=== PATIENT | female | born 1990 | race Caucasian/White ===

== ENCOUNTER 2016-08-19 19:32 | Emergency (ER) | payer OTHER ==
[~2016-08-19] VITALS: Ht 162.6 cm; Wt 74.5 kg
[2016-08-19 19:50] VITALS: Ht 162.6 cm; Wt 74.5 kg
--- NOTE | 2016-08-19 21:40 | RADRPT ---
PROCEDURE: XR Wrist. CLINICAL INDICATION: Left wrist swelling and pain along the distal ulna TECHNIQUE: PA, lateral and oblique and the scaphoid views of the left wrist were performed. COMPARISON: No prior studies are available for comparison. FINDINGS: No evidence of fracture, dislocation, or subluxation is seen. The bones appear well mineralized. The joint spaces are well preserved. Diffuse soft tissue swelling is present. Extensive arteriosclerot ic calcification of the radial and ulnar arteries is noted. There is no evidence of subcutaneous ga s or radiopaque foreign body. RPTAT:HJJR IMPRESSION: Diffuse soft tissue swelling without acute osseous abnormality of the left wrist. Physician Fran Date Time Electronically viewed and signed by Physician Fran on 08/19/2016 21:39 /
--- NOTE | 2016-08-19 21:41 | RADRPT ---
PROCEDURE: XR Elbow. CLINICAL INDICATION: Left lateral elbow pain and swelling TECHNIQUE: AP, lateral and oblique views of the left elbow performed, a total of 4 images sent to the PACS for review. COMPARISON: None. FINDINGS: There is normal mineralization and alignment. No fracture or osseous lesion is identified. The dista l humerus, proximal radius and proximal ulna are unremarkable, and the joint spaces are preserved. D iffuse soft tissue swelling is present. Vascular calcifications in the antecubital fossa region/dis eliseo arm are noted. There is no evidence of a joint effusion. RPTAT:HJJR IMPRESSION: 1. Diffuse soft tissue swelling without osseous abnormality of the left elbow. 2. Metallic clips consistent with prior surgery involving the distal left arm. Physician Fran Date Time Electronically viewed and signed by Physician Fran on 08/19/2016 21:41 JR/
--- NOTE | 2016-08-20 06:50 | ERD ---
DATE OF SERVICE: 08/19/2016 HISTORY OF PRESENT ILLNESS: The patient is a 26-year-old female complaining of swelling to her left arm. The patient has a history of a fistula. She has been seen by her renal physician yesterday w miguel did an ultrasound to rule out DVT. There were no signs of DVT on ultrasound. The patient states she had a seizure 3 weeks ago and she fell and she has noticed that there has been swelling in her arm with some pain, so she is concerned about possible fracture. The patient was sent here by her enms physician for x-ray to rule out possible underlying fracture. The patient does not have any nu mbness or tingling. She has not taken medications for her symptoms. She states that the ultrasound was negative per her renal physician yesterday and does not want to repeat ultrasound today. MEDICAL HISTORY: Renal disease. ALLERGIES TO MEDICATIONS: 1. MORPHINE. 2. BENAZEPRIL. 3. TRAMADOL 4. METOCLOPRAMIDE. 5. KETOROLAC 6. LATEX. SURGICAL HISTORY: Fistula placement. SOCIAL HISTORY: Denies. REVIEW OF SYSTEMS: A 12-point review of systems was done. Refer to HPI for positives; all other sy stems negative. PHYSICAL EXAMINATION VITAL SIGNS: Temperature is 96.9, pulse 82, blood pressure is 183/91, respiratory rate 18, O2 satur ation 97% on room air, and pain intensity 8/10. GENERAL: The patient is well-appearing, well-nourished, no acute distress. HEENT: Atraumatic. Conjunctivae are pink. Pupils equal, round, and reactive to light. There is no s cleral icterus. Tympanic membranes clear bilaterally. Oropharynx clear. No nystagmus or photophobia . CHEST: Clear to auscultation bilaterally. There are no rales, wheezes or rhonchi. HEART: Regular rate and rhythm. No murmurs, clicks, rubs or gallops. No S3 or S4. EXTREMITIES: The patient does have swelling noted with no erythema. Pulses are intact to the dista l extremities. The patient has normal strength to the distal extremity with normal radial and ulnar median nerve innervation. Compartments are soft. The patient has normal flexion and extension wit h active and passive range of motion at the left elbow. EMERGENCY ROOM COURSE: Dr. Whaley was also asked to evaluate the patient. Dr. Ostick saw the patie nt at bedside and believes that we should do ultrasound to rule out possible clot of the left upper extremity. This was discussed with the patient; however, the patient did have ultrasound yesterday that was negative, and the patient declined a re-ultrasound at this time. We decided to order x-ray to rule out possible underlying fracture. The patient did have a 3-view x-ray done of the left elb ow which showed diffuse soft tissue swelling without osseous abnormality of the left elbow and metal lic clips consistent with prior surgery involving the distal left arm, reviewed by myself as well as radiologist. The patient also had a 3-view x-ray done of the left wrist which showed diffuse soft tissue swelling without acute osseous abnormality of the left wrist, reviewed by myself as well as t henrry radiologist. The patient was placed in a splint. DIAGNOSIS: Left upper arm swelling, unspecified. MEDICAL DECISION MAKING: I have low suspicion for acute fracture or dislocation as the patient's x- rays are within normal limits. I cannot adequately rule out a possible vascular occlusion as the pa valerie declines ultrasound in the ER; however, the patient understood the risks and states she did velasquez ve an ultrasound done yesterday which was read as negative, so the patient felt there was no need fo r re-ultrasound today. Low suspicion for neuro deficit. DISCHARGE: The patient is discharged stable. The patient is given no prescription. The patient wa s told to follow up with her renal physician and told to return if symptoms change or worsen. All o ther questions answered at time of discharge. Discharge summary given at the time of departure. Th e patient understood and complied with plan. Dictated By: ROULA CHAPMAN for LEI ROSS/ALISON Conf#: [id number] DID#: [id number]
== END 2016-08-19 22:38 | disposition home or self-care (01) ==
LOC: FTE 19:32
DX: S49.92XA Unspecified injury of left shoulder and upper arm, initial encounter (principal); I10 Essential (primary) hypertension; E11.9 Type 2 diabetes mellitus without complications; W18.39XA Other fall on same level, initial encounter; Y92.9 Unspecified place or not applicable; Z91.040 Latex allergy status
CPT/HCPCS: 73080; 73110; Z7502

== ENCOUNTER 2018-10-19 20:18 | Inpatient (IN) | payer OTHER ==
[~2018-10-19] VITALS: Ht 162.6 cm; Wt 70.0 kg
[2018-10-19] MEDS ORDERED: PIPER-TAZO 3.375 GM IV (PMX) 100 ML IVPB STA (21:01)
[2018-10-19] MEDS ORDERED: HYDROmorphONE 0.5 MG/0.5 ML SYG IV STA (21:01)
[2018-10-19] MEDS ORDERED: VANCOMYCIN 1 GM (PMX) 250 ML IVPB STA (21:01)
[2018-10-19] MEDS ORDERED: CLINDAMYCIN 900 MG/D5W (PMX) 50 ML IVPB STA (21:01)
[2018-10-19] MEDS ORDERED: ONDANSETRON 4 MG INJ IV STA (21:01)
--- NOTE | 2018-10-19 22:19 | ERD ---
ER Documentation Chief Complaint Chief Complaint pain/swelling/discoloration right lower leg, missed dialysis today HPI 28-year-old female history of end-stage renal disease on dialysis who did not complete dialysis today. History of diabetes. Patient presents to the emergency room with pain and swelling to the right lower extremity. Over the past several weeks the patient has had a fall with outpatient hospitalization for potential fracture of the right lower extremity. She is in a walking boot. The patient notes significant swelling and bruising to the anterior aspect of the rose that is worse over the last several days. Her glucose values have been up and down as well as her blood pressure values have been up and down. She did not complete her dialysis course today. She notes 7 out of 10 throbbing pain to the right lower extremity. No fever. ROS All systems reviewed and are negative except as per history of present illness. Allergies Allergies: Coded Allergies: adhesive tape (Verified Allergy, Mild, 06/20/16) benazepril (Verified Allergy, Mild, 06/20/16) ketorolac (Verified Allergy, Mild, 06/20/16) latex (Verified Allergy, Mild, 06/20/16) metoclopramide (Verified Allergy, Mild, 06/20/16) morphine (Verified Allergy, Mild, 06/20/16) tramadol (Verified Allergy, Mild, 06/20/16) clindamycin (Verified Allergy, Unknown, 10/19/18) PMhx/Soc History of Surgery: Yes (LEFT UPPER ARM FISTULA, APPY, PORTACATH,RT CATARACT SX) Anesthesia Reaction: No Hx Neurological Disorder: Yes (SEIZURE) Hx Respiratory Disorders: No Hx Psychiatric Problems: No Hx Alcohol Use: No Hx Substance Use: No Hx Tobacco Use: No Smoking Status: Never smoker FmHx Family History: diabetes Physical Exam Vitals Vital Signs Date Temp Pulse Resp B/P (MAP) Pulse Ox O2 O2 Flow FiO2 Time Delivery Rate 10/19/18 98.8 83 16 156/74 96 Room Air 22:15 (101) 10/19/18 98.8 80 20 157/97 98 Room Air 21:24 (117) 10/19/18 Nasal 21:19 Cannula 10/19/18 98.8 84 18 215/95 98 20:37 (135) Physical Exam General: Malnourished Head: Normocephalic, atraumatic. Eyes: Pupils equally reactive, EOM intact ENT: Moist mucous membranes Neck: Supple, no lymphadenopathy Respiratory: Lungs clear bilaterally, no distress Cardiovascular: RRR, no murmurs, rubs, or gallops Abdominal: Soft, non-tender, non-distended, no peritoneal signs : Deferred MSK: Right lower extremity shows evidence of unilateral swelling, bruising and ecchymoses noted to the anterior portion of the rose with a broken blister. Patient has 2+ dorsalis pedis pulses. Patient has no obvious bony abnormalities and full active and passive range of motion of the ankle and knee. Neurologic: Alert and oriented, moving all extremities, normal speech, no focal weakness, no cerebellar signs Skin: As noted above Psych: Normal mood Result Diagram: 10/19/18222010/19/182220 Results 24 hrs Laboratory Tests Test 10/19/18 22:20 10/19/18 22:21 10/19/18 23:08 POC Venous Lactate 1.0 mmol/L White Blood Count 7.1 10^3/ul Red Blood Count 2.74 10^6/ul Hemoglobin 8.2 g/dl Hematocrit 25.4 % Mean Corpuscular Volume 92.7 fl Mean Corpuscular 29.9 pg Hemoglobin Mean Corpuscular 32.3 g/dl Hemoglobin Concent Red Cell Distribution 15.5 % Width Platelet Count 139 10^3/UL Mean Platelet Volume 11.9 fl Immature Granulocytes % 0.100 % Neutrophils % 83.3 % Lymphocytes % 3.7 % Monocytes % 9.3 % Eosinophils % 3.0 % Basophils % 0.6 % Nucleated Red Blood Cells 0.0 /100WBC % Immature Granulocytes # 0.010 10^3/ul Neutrophils # 5.9 10^3/ul Lymphocytes # 0.3 10^3/ul Monocytes # 0.7 10^3/ul Eosinophils # 0.2 10^3/ul Basophils # 0.0 10^3/ul Nucleated Red Blood Cells 0.0 10^3/ul # Prothrombin Time 14.0 Sec Prothrombin Time Ratio 1.1 INR International 1.07 Normalized Ratio Activated 29.8 Sec Partial Thromboplast Time Sodium Level 135 mmol/L Potassium Level 5.1 mmol/L Chloride Level 92 mmol/L Carbon Dioxide Level 19 mmol/L Anion Gap 24 Blood Urea Nitrogen 66 mg/dl Creatinine 8.86 mg/dl Est Glomerular Filtrat 5 mL/min Rate mL/min Glucose Level 497 mg/dl Calcium Level 8.4 mg/dl Troponin I < 0.012 ng/ml Serum HCG, Qualitative NEGATIVE Blood Gas Specimen Source Blood venous Arterial Blood Date Drawn 10/19/2018 11:15:45 PM Arterial Blood Gas VENOUS LINE Puncture Site Maicol Test N/A Venous Blood pH 7.265 Venous Blood pCO2 45.9 mmHG (Temp Corrected) Venous Blood pO2 42.1 mmHG (Temp Corrected) Venous Blood HCO3 20.4 mmol/L Venous Blood Oxygen 69.6 mmHG Saturation Venous Blood Base Excess -6.3 mmol/L Venous Blood Total 8.7 g/dl Hemoglobin Venous Blood Oxyhemoglobin 69.2 % Venous Blood Methemoglobin 0.2 % Carboxyhemoglobin 0.4 % Blood Gas Temperature 37.0 C Blood Gas Actual 18 Respiration Rate Blood Gas Modality ROOM AIR FiO2 21.0 % Blood Gas Notified Whom MH Blood Gas Notified Time 10/19/2018 11:24:48 PM Current Medications Medications Dose Sig/Alyssa Start Time Status Last (Trade) Ordered Route PRN Stop Time Admin Dose Reason Admin Vancomycin 250 ml @ ONCE STAT 10/19/18 DC 10/19/18 HCl 125 mls/hr IVPB 21:01 23:20 10/19/18 23:00 Clindamycin 50 ml @ 50 ONCE STAT 10/19/18 DC HCl/ mls/hr IVPB 21:01 Dextrose 10/19/18 23:01 Piperacillin 100 ml @ ONCE STAT 10/19/18 DC 10/19/18 Sod/ 200 mls/hr IVPB 21:01 22:14 Tazobactam 10/19/18 21:30 Sod 1 mg ONCE STAT 10/19/18 DC 10/19/18 Hydromorphone IV 21:01 22:14 HCl 10/19/18 21:05 (Dilaudid) Ondansetron 4 mg ONCE STAT 10/19/18 DC 10/19/18 HCl (Zofran IV 21:01 22:14 Inj) 10/19/18 21:05 25 mg ONCE ONCE 10/19/18 DC 10/19/18 Diphenhydrami IV 22:30 22:14 ne HCl 10/19/18 22:31 (Benadryl) 25 mg ONCE ONCE 10/19/18 DC 10/19/18 Diphenhydrami IV 23:30 23:40 ne HCl 10/19/18 23:31 (Benadryl) Potassium 1,000 ml @ Q0M IV 10/19/18 Chloride/Sodi 0 mls/hr 23:35 um Chloride Potassium 1,000 ml @ Q0M IV 10/19/18 Chloride/Dext 0 mls/hr 23:35 sara/ Sod Cl Potassium 1,000 ml @ Q0M IV 10/19/18 Chloride/Sodi 0 mls/hr 23:35 um Chloride Potassium 1,000 ml @ Q0M IV 10/19/18 Chloride/Dext 0 mls/hr 23:35 sara/ Sod Cl Sodium 1,000 ml @ Q0M IV 10/19/18 Chloride 0 mls/hr 23:35 1,000 ml @ Q0M IV 10/19/18 Dextrose/Sodi 0 mls/hr 23:35 um Chloride Insulin 101 ml @ ER DKA 10/20/18 Human 7.07 mls/hr PROTOCOL IV 00:00 Regular 100 unit/ Sodium Chloride Lactated 700 ml @ ONCE ONCE 10/20/18 Ringer's 700 mls/hr IV 00:00 10/20/18 00:59 HYPOGLYCEM 10/20/18 Miscellaneous HYPOGLYCEMIA PROTOCOL PRN 00:00 TREATMENT XX Information .HYPOGLYCEMIA (* PROTOCOL Miscellaneous Pharmacy Order) Dextrose 50 ml Q15M PRN 10/20/18 (D50w IV 00:00 Syringe) .DECREASED GLUCOSE Dextrose 25 ml Q15M PRN 10/20/18 (D50w IV 00:00 Syringe) .DECREASED GLUCOSE Procedures/MDM EKG, MONITORS, & DIAGNOSTIC IMAGING: EKG: I reviewed and interpreted a 12-lead EKG. Rhythm: Normal sinus rhythm ST Changes: No contiguous ST segment elevations T waves: No contiguous T wave inversions Impression: [No evidence of acute cardiac ischemia] CXR Chest x-ray: I reviewed and interpreted a 1 view of the chest Mediastinum: No enlargement Cardiac silhouette: No cardiomegaly Airspace: Clear lung starkey bilaterally without evidence of pneumothorax Bones: No evidence of fracture Right lower extremity duplex: No DVT CT LE: Pending formal read PROCEDURES: Peripheral IV Insertion: Indication: Difficult IV access Location: LUE Attempts: 1 Angiocath-type: 18 The patient was consented prior to procedure and states understanding of risks, benefits, alternatives. Verbal consent was provided Sterile procedure was used to insert a peripheral IV. Indication, location and Angiocath-type are noted above. Ultrasound guidance was used to assist in the insertion of the Angiocath. Return of dark nonpulsatile blood was obtained, normal saline flushed through the Angiocath which was then secured to the skin. The patient tolerated the procedure well without complications. Emergency Bedside Ultrasound: The patient was verbally consented prior to procedure and understands the risks, benefits, and alternatives. The patient is agreeable to procedure and has given verbal consent. Indication: Peripheral IV insertion Probe Type: Linear Findings: Dynamic ultrasound utilized with compression technique with both linear and horizontal views. The patient tolerated the procedure well and there were no complications. LAB INTERPRETATION: I reviewed the laboratory testing and it shows no significant leukocytosis or anemia, renal failure without hyperkalemia, anion gap acidosis with hyperglycemia with a normal lactic and a negative troponin. Venous blood gas concerning for DKA MEDICAL DECISION MAKING: Patient presents with multiple issues including right lower extremity wound possible reported fracture versus DVT. Duplex indicated. CT indicated. Patient benefit from empiric antibiotics. Patient also noted to have hyperglycemia, DKA screening would be initiated. Patient did not complete her dialysis today. Patient is difficult access and chronic pain issues. ER COURSE: * IV established, patient given pain control medications. Blood cultures and empiric antibiotics ordered. * No Sirs criteria are met in the emergency room setting. Broad-spectrum antibiotics provided. * Hypertension improved without intervention. * Laboratory testing is concerning for early diabetic ketoacidosis. Given the patient's low pH and anion gap acidosis with hyperglycemia close to 500 insulin would be indicated. DKA protocol initiated. The patient is likely to close quickly. I would avoid aggressive fluid resuscitation in this patient therefore only small lactated Ringer's bolus has been provided. CONSULTATION: [None] DISPOSITION PLAN: Accepting care team and consultations: I discussed the current laboratory data, diagnostic imaging and emergency care provided. Admitting team: Dr. Garza Admitting team indication: Insurance directed Critical Care Note: Total time: 30 minutes Indication/Organ System Threat: Diabetic ketoacidosis I spent the above amount of critical care time with the patient, not including billable procedures. This included chart review, consultations, repeat bedside evaluations, and titration of appropriate medications to prevent cardiopulmonary or respiratory collapse. Departure Diagnosis: Primary Impression: Diabetic ketoacidosis Diabetes mellitus type: other specified (including DAMIAN) Diabetes mellitus complication detail: without coma Qualified Codes: E13.10 - Other specified diabetes mellitus with ketoacidosis without coma Additional Impressions: End stage renal disease on dialysis Cellulitis of right lower extremity Hypertensive urgency Chronic pain Chronic pain type: other chronic pain Qualified Codes: G89.29 - Other chronic pain Condition: Serious CRIS BARONE MD Oct 19, 2018 22:19
[2018-10-19] MEDS ORDERED: DIPHENHYDRAMINE 50 MG INJ IV ONE ×2 (22:30→23:30)
[2018-10-19] MEDS ORDERED: SOD CHLORIDE 0.9% 1,000 ML IV SCH (23:35)
[2018-10-19] MEDS ORDERED: D10/0.45% NACL + KCL 30 MEQ 1,000 ML IV SCH (23:35)
[2018-10-19] MEDS ORDERED: DEXTROSE 10 %/0.45 % NACL 1,000 ML IV SCH (23:35)
[2018-10-19] MEDS ORDERED: NS + KCL 30 MEQ 1,000 ML IV SCH (23:35)
[2018-10-19] MEDS ORDERED: NS + KCL 40 MEQ 1,000 ML IV SCH (23:35)
[2018-10-19] MEDS ORDERED: D10/0.45% NACL + KCL 40 MEQ 1,000 ML IV SCH (23:35)
[2018-10-20] VITALS (21 sets, daily range): BP systolic 94–216; BP diastolic 54–129; PULSE 76–106; RESP 9–21; Ht 162.6 cm; Wt 70.0 kg
[2018-10-20] MEDS ORDERED: BISACODYL (EC) 5 MG TAB PO PRN
[2018-10-20] MEDS ORDERED: DOCUSATE SODIUM 100 MG CAP PO PRN
[2018-10-20] MEDS ORDERED: ACETAMINOPHEN 650MG/20.3ML CUP PO PRN
[2018-10-20] MEDS ORDERED: INSULIN REGULAR, HUMAN 100 UNIT in SOD CHLORIDE 0.9% 100 ML IV SCH ×2
[2018-10-20] MEDS ORDERED: LACTATED RINGER'S 700 ML IV ONE
[2018-10-20] MEDS: ALBUTEROL/IPRATROPIUM (NEB) 3 ML AMP NEB SCH ×6 (01:00→20:37)
[2018-10-20] MEDS ORDERED: VANCOMYCIN IV PER PHARMACY XX SCH (01:30)
--- NOTE | 2018-10-20 01:43 | HP ---
Date/Time of Note Date/Time of Note DATE: 10/20/18 TIME: 01:43 Assessment/Plan VTE Prophylaxis SCD applied (from Nsg): Yes (Left lower extremity) SCD contraindicated: other Pharmacological prophylaxis: NA/contraindicated Pharm contraindication: surgical contra Lines/Catheters IV Catheter Type (from Nrsg): Mid Line Assessment/Plan Hospital Course This is a 28-year-old female being admitted to the ICU floor for: #1 suspect diabetic ketoacidosis: Likely triggered by underlying cellulitis and fracture. At the current time will initiate DKA protocol. Given that she is end-stage renal disease we will limit the amount of fluids she will be getting. Her gap also could be due to her ESRD, but given her high sugars we will treat for presumptive dka. At the current time I will put her normal saline with potassium supplementation at 100 cc an hour, insulin drip. Once sugars are below 200 we will switch over to D5 half-normal saline at 100 cc an hour. Monitor fluid status given end-stage renal disease. #2 right lower extremity cellulitis: afebrile and normal wbc, but significant warmth of right lower extremity. Vancomycin and Zosyn, will consult ID. Check ESR and CRP. #3 fracture of mid diaphysis of tibia and fibula: CT of the right lower extremity shows: Soft tissue swelling surrounding comminuted slightly impacted fracture of the proximal mid diaphysis of the tibia and fibula. There is an area of warmth and an ecchymosis of the site so treating for suspected cellulitis as well. At the current time will immobilize the patient, pain control. There does not appear to be any signs of compartment syndrome. Dr. Babcock of orthopedic surgery has been consulted. #4 end-stage renal disease: On hemodialysis Sunday. Will avoid NSAIDs. Currently patient is receiving fluids for DKA. We will need to monitor volume status closely. Will consult nephrology Dr. Spear. #5 metabolic acidosis: Multifactorial secondary to underlying DKA, cellulitis, end-stage renal disease. We will treat the underlying causes. #6 normocytic anemia: Likely secondary to underlying end-stage renal disease: We will check iron stores. Possible Procrit/Epogen per nephro. #7 DVT GI prophylaxis: SCD to the left lower extremity, Protonix Further treatment strategy will be implemented as per the clinical course. greater than 40 mins of critical care time was spent on the care and management of this patient. Result Diagram: 10/19/18 2221 10/19/18 2221 Results 24hrs Laboratory Tests Test 10/19/18 22:20 10/19/18 22:21 10/19/18 23:08 10/20/18 01:27 POC Venous 1.0 Lactate White Blood Count 7.1 Red Blood Count 2.74 L Hemoglobin 8.2 L Hematocrit 25.4 L Mean Corpuscular 92.7 Volume Mean Corpuscular 29.9 Hemoglobin Mean Corpuscular 32.3 Hemoglobin Concen t Red Cell 15.5 H Distribution Width Platelet Count 139 L Mean Platelet 11.9 #H Volume Immature 0.100 Granulocytes % Neutrophils % 83.3 H Lymphocytes % 3.7 L Monocytes % 9.3 Eosinophils % 3.0 Basophils % 0.6 Nucleated Red 0.0 Blood Cells % Immature 0.010 Granulocytes # Neutrophils # 5.9 Lymphocytes # 0.3 L Monocytes # 0.7 Eosinophils # 0.2 Basophils # 0.0 Nucleated Red 0.0 Blood Cells # Prothrombin Time 14.0 Prothrombin Time 1.1 Ratio INR International 1.07 Normalized Ratio Activated 29.8 Partial Thrombopl ast Time Sodium Level 135 Potassium Level 5.1 Chloride Level 92 L Carbon Dioxide 19 L Level Anion Gap 24 H Blood Urea 66 H Nitrogen Creatinine 8.86 H Est Glomerular 5 L Filtrat Rate mL/min Glucose Level 497 *H Hemoglobin A1c 8.0 H Calcium Level 8.4 Troponin I < 0.012 Serum HCG, NEGATIVE Qualitative Blood Gas Blood venous Specimen Source Arterial Blood 10/19/2018 11:15: Date Drawn 45 PM Arterial Blood VENOUS LINE Gas Puncture Site Maicol Test N/A Venous Blood pH 7.265 L Venous Blood pCO2 45.9 H (Temp Corrected) Venous Blood pO2 42.1 H (Temp Corrected) Venous Blood HCO3 20.4 L Venous Blood 69.6 Oxygen Saturation Venous Blood Base -6.3 L Excess Venous Blood 8.7 Total Hemoglobin Venous Blood 69.2 Oxyhemoglobin Venous Blood 0.2 Methemoglobin Carboxyhemoglobin 0.4 Blood Gas 37.0 Temperature Blood Gas Actual 18 Respiration Rate Blood Gas ROOM AIR Modality FiO2 21.0 Blood Gas Notified Whom Blood Gas 10/19/2018 11:24: Notified Time 48 PM Bedside Glucose 500 *H HPI/ROS Admit Date/Time Admit Date/Time Hx of Present Illness Chief complaint: Swelling and pain right lower extremity This is a 28-year-old female who presents to the emergency department after she was unable to complete dialysis due to having nausea and vomiting. Patient reports that she recently twisted her ankle and fell. She was recently admitted to [facility] and was discharged. She does not very clear on what she was treated for at [facility]. she reports that yesterday she was at dialysis and she ended up having nausea and vomiting.. She did present to the ER in a walking boot. And therefore she came to [facility] ER. She does report that her sugar levels have been higher than usual. And she continues to have pain in her right lower extremity. She is legally blind. She did report that her mother said that her leg has been discolored. And she has been having her family members carry her around. She does have throbbing pain in her right lower extremity. She denies any fevers. She does report pain in her right lower extremity approximately 7 out of 10 and was requesting Dilaudid. allergies: Adhesive tape, benazepril, clindamycin, ketorolac, latex, Reglan, morphine, tramadol Medications: See Aug Const: As per HPI Eyes : No pain discharge or redness or change in visual acuity ENT: No pain, sore throat, congestion, congestion, dysphagia or discharge Respiratory: No shortness of breath, cough, sputum, wheezing, or pleuritic pain Cardiovascular: No chest pain, palpitation, PND, or edema GI : no change in appetite, abdominal pain, nausea, vomiting, diarrhea, constipation, or change in the color his stool Genitourinary: No dysuria, hematuria, flank pain , discharge or CVA tenderness Musculoskeletal: As per HPI Neuro: No headache, dizziness, syncope, seizure, focal weakness Endocrine: As per HPI Psych: No hallucination, depression, anxiety or suicidal ideation PMH/Family/Social Past Medical History Diabetes mellitus complicated with diabetic retinopathy and diabetic nephropathy, end-stage renal disease on HD Sunday,, hypertension, asthma Medications Current Medications Potassium Chloride/Sodium Chloride 1,000 ml @ 0 mls/hr Q0M IV ; Start 10/19/18 at 23:35 Potassium Chloride/Dextrose/ Sod Cl 1,000 ml @ 0 mls/hr Q0M IV ; Start 10/19/18 at 23:35 Potassium Chloride/Sodium Chloride 1,000 ml @ 0 mls/hr Q0M IV ; Start 10/19/18 at 23:35 Potassium Chloride/Dextrose/ Sod Cl 1,000 ml @ 0 mls/hr Q0M IV ; Start 10/19/18 at 23:35 Sodium Chloride 1,000 ml @ 0 mls/hr Q0M IV ; Start 10/19/18 at 23:35 Dextrose/Sodium Chloride 1,000 ml @ 0 mls/hr Q0M IV ; Start 10/19/18 at 23:35 Insulin Human Regular 100 unit/ Sodium Chloride 101 ml @ 7.07 mls/hr ER DKA PROTOCOL IV ; Start 10/20/18 at 00:00 Miscellaneous Information (* Miscellaneous Pharmacy Order) HYPOGLYCEMIA TREATMENT HYPOGLYCEM PROTOCOL PRN XX .HYPOGLYCEMIA PROTOCOL; Start 10/20/18 at 00:00 Dextrose (D50w Syringe) 50 ml Q15M PRN IV .DECREASED GLUCOSE; Start 10/20/18 at 00:00 Dextrose (D50w Syringe) 25 ml Q15M PRN IV .DECREASED GLUCOSE; Start 10/20/18 at 00:00 Ondansetron HCl (Zofran Inj) 4 mg Q6H PRN IV NAUSEA AND/OR VOMITING; Start 10/20/18 at 00:00 Albuterol/ Ipratropium (Duoneb) 3 ml Q4H RESP THERAPY NEB ; Start 10/20/18 at 0 1:00 Nitroglycerin (Nitroglycerin (Sl Tab) 0.4 Mg) 1 tab Q5M PRN SL CHEST PAIN; Start 10/20/18 at 00:00 Acetaminophen (Tylenol Liquid) 650 mg Q6H PRN PO PAIN LEVEL 1-3 OR FEVER; Start 10/20/18 at 00:00 Morphine Sulfate (morphine) 2 mg Q4H PRN IV PAIN LEVEL 7-10; Start 10/20/18 at 00:00 Docusate Sodium (Colace) 100 mg Q12H PRN PO CONSTIPATION; Start 10/20/18 at 00:00 Bisacodyl (Dulcolax) 5 mg DAILY PRN PO CONSTIPATION; Start 10/20/18 at 00:00 Pantoprazole (Protonix Iv) 40 mg DAILY@06 IV ; Start 10/20/18 at 06:00 Vancomycin HCl (Vanco Iv Per Pharmacy) VANCOMYCIN PER PHARMACY PER PROTOCOL XX ; Start 10/20/18 at 01:30 Vancomycin HCl 100 ml @ 100 mls/hr ONCE ONCE IVPB ; Start 10/20/18 at 02:00; Stop 10/20/18 at 02:59 Coded Allergies: adhesive tape (Verified Allergy, Mild, 06/20/16) benazepril (Verified Allergy, Mild, 06/20/16) ketorolac (Verified Allergy, Mild, 06/20/16) latex (Verified Allergy, Mild, 06/20/16) metoclopramide (Verified Allergy, Mild, 06/20/16) morphine (Verified Allergy, Mild, 06/20/16) tramadol (Verified Allergy, Mild, 06/20/16) clindamycin (Verified Allergy, Unknown, 10/19/18) Past Surgical History Failed left AV fistula, right chest Tremayne cath Family History Significant Family History: no pertinent family hx Social History Alcohol Use: none Smoking Status: Never smoker Drug Use: none Exam/Review of Systems Vital Signs Vitals Vital Signs Date Temp Pulse Resp B/P (MAP) Pulse Ox O2 O2 Flow FiO2 Time Delivery Rate 10/20/18 98.8 77 20 129/65 96 Room Air 01:11 (86) Exam Exam General: Patient is currently lying in bed, in mild pain from her right lower extremity, legally blind HEENT: Atraumatic, normocephalic. Legally blind Neck: Supple with full range of motion. No rigidity or meningismus Chest: Right Tremayne cath Lungs: Clear to auscultation bilaterally no crackles rales or wheezing Heart: Normal S1-S2, Regular rhythm and rate. No murmur, S3, or S4 Abdomen: Soft , nontender, nondistended , bowel sounds are present. No guarding no rebound tenderness , No masses or organomegaly. No costovertebral temporal angle mass Extremities: Right lower extremity significant discoloration of the anterior rose, warm to touch, distal pulses palpable, no cyanosis noted Neurologic: Normal mental status, speech normal, legally blind Additional Comments PROCEDURE: XR Chest, 1 View CLINICAL INDICATION: Possible sepsis. TECHNIQUE: Frontal view of the chest. COMPARISON: 06/16/2017 FINDINGS: LUNGS: Unremarkable. No consolidation. PLEURAL SPACE: Unremarkable. No pneumothorax. HEART: Unremarkable. No cardiomegaly. MEDIASTINUM: Unremarkable. BONES/JOINTS: Unremarkable. TUBES, LINES AND DEVICES: Right-sided central line with tip overlying right atrium. IMPRESSION: No acute cardiopulmonary disease demonstrated. RPTAT: [facility] Tutu Sewell Physician [facility] Date Time Electronically viewed and signed by Tutu Sewell Physician [facility] on 10/19/2018 23:47 RmC/ CC: CRIS BARONE MD [id number] PROCEDURE: CT right lower extremity without contrast CLINICAL INDICATION: Pain TECHNIQUE: Serial axial computed tomographic images of the right lower extremity from the hip to the foot were performed on a multidetector scanner. Sagittal and coronal reconstruction images were produced. No contrast material was utilized. Exam CTDIvol: 19 mGy. DLP: 1121 mGy-cm. One of the following 3 dose reduction techniques were used: Automated exposure control; adjustment of the mA and/or kV according to patient size; or use of iterative reconstruction technique. DICOM images are available. COMPARISON: None. FINDINGS: There is an circumferential subcutaneous infiltration/edema surrounding an acute comminuted slightly impacted fracture of the proximal metadiaphysis of the tibia without significant angulation. There is an adjacent comminuted proximal fibular metadiaphyseal fracture. There is mild surrounding infiltration and hemorrhage. No other fracture is present. Bone mineralization is otherwise within normal limits. Joint relationships are maintained. There is knee joint fluid with fluid in the suprapatellar bursa. There are extensive arterial vascular calcifications throughout the right lower extremity. IMPRESSION: 1. Soft tissue swelling surrounding comminuted slightly impacted fracture of the proximal mid diaphysis of the tibia and fibula. 2. Knee joint fluid extending to the suprapatellar bursa. 3. Extensive arterial vascular calcifications. RPTAT: [facility] .Jerad Jasso MD, Date Time Electronically viewed and signed by .Jerad Jasso MD, MD on 10/20/2018 00:02 .K/ CC: CRIS BARONE MD [id number] PROCEDURE: US Duplex Right Lower Extremity Veins CLINICAL INDICATION: Right lower extremity swelling. TECHNIQUE: Real-time duplex ultrasound scan of the right lower extremity veins integrating B-mode two-dimensional vascular structure, Doppler spectral analysis, color flow Doppler imaging and compression. COMPARISON: None FINDINGS: DEEP VEINS: Unremarkable. No DVT in the visualized common femoral, femoral, proximal deep femoral or popliteal veins. The veins demonstrate normal color flow, are normally compressible, with normal phasic flow and/or augmentation response. SUPERFICIAL VEINS: Unremarkable. No thrombus in the visualized great saphenous vein. SOFT TISSUES: No acute findings. No popliteal cyst. IMPRESSION: No deep vein thrombosis, right lower extremity. RPTAT: [facility] Tutu Sewell Physician [facility] Date Time Electronically viewed and signed by Tutu Sewell, Physician [facility] on 10/19/2018 23:49 RmC/ CC: CRIS BARONE MD [id number] VERITO GARCIA Oct 20, 2018 01:43
[2018-10-20] MEDS ORDERED: VANCOMYCIN 500 MG (PMX) 100 ML IVPB ONE (02:00)
[2018-10-20] MEDS: HYDROmorphONE 1 MG/ML SYG IV PRN ×6 (02:45→23:35)
[2018-10-20] MEDS ORDERED: HYDROCODONE/APAP (5/325) TAB PO PRN (03:00)
[2018-10-20] MEDS ORDERED: CLONIDINE 0.3 MG/24 HR PATCH TRANSDERM SCH (04:00)
[2018-10-20] MEDS ORDERED: NA BICARBONATE 8.4% 50 ML SYG IV ONE (04:00)
[2018-10-20] MEDS ORDERED: INSULIN HUMAN REGULAR 100 UNIT in SOD CHLORIDE 0.9% 99 ML IV SCH (04:00)
[2018-10-20] MEDS ORDERED: DIPHENHYDRAMINE 50 MG INJ IV PRN ×4 (04:30→12:30)
[2018-10-20] MEDS: ACCU-CHEK XX SCH ×7 (04:32→10:00)
[2018-10-20] MEDS: LORAZEPAM 2 MG INJ IV PRN ×3 (04:34→20:45)
[2018-10-20] MEDS: ONDANSETRON 4 MG INJ IV PRN ×3 (05:27→17:48)
[2018-10-20] MEDS: PANTOPRAZOLE 40 MG INJ IV SCH (05:31)
[2018-10-20] MEDS ORDERED: DEXTROSE 5%-0.45% NACL 1,000 ML IV SCH (06:30)
[2018-10-20] MEDS: PIPER-TAZO 2.25 GM (PMX) 50 ML IVPB SCH ×2 (09:02→20:45)
[2018-10-20] MEDS ORDERED: GLUCAGON 1 MG INJ IM PRN (10:30)
[2018-10-20] MEDS ORDERED: GLUCOSE GEL 15 GRAM TUBE BUCCAL PRN (10:30)
[2018-10-20] MEDS ORDERED: DEXTROSE 50% 50 ML SYRINGE IV PRN ×4 (10:30)
[2018-10-20] MEDS ORDERED: GLUCOSE GEL 15 GRAM TUBE PO PRN ×2 (10:30)
[2018-10-20] MEDS ORDERED: INSULIN ASPART [NOVOLOG] 3 ML PEN SC SCH ×2 (11:30→17:35)
[2018-10-20] MEDS ORDERED: EPOETIN ALFA-EPBX (ESRD) 4,000 UNIT/ML VIAL SC ONE (12:00)
[2018-10-20] MEDS ORDERED: DIPHENHYDRAMINE 25 MG CAP PO PRN (12:00)
--- NOTE | 2018-10-20 12:00 | CONS ---
Assessment/Plan Assessment/Plan Assessment/Plan (Daily) 1. ESRD: - HD today. - re-evaluate tomorrow for HD needs - routine catheter care 2. hyperkalemia: - HD with low K bath - monitor K 3. DKA: - on insulin gtt - gentle hydration - monitor BMP and blood sugar 4. right leg cellulitis: - cont abx 5. fracture of the tibia and fibula: - pain control - ortho consult pending 6. Bone mineral disease: - monitor ca and phos - check pth and 25 hydroxy vitamin d level 7. anemia: - epogen as needed with HD Consultation Date/Type/Reason Admit Date/Time Type of Consult nephrology Reason for Consultation esrd Date/Time of Note DATE: 10/20/18 TIME: 11:51 Hx of Present Illness Pt is a 28yo F with hx of DM and ESRD who presented from HD due to n/v. on Sunday pot fell on her way to HD and evaluated at [facility] and discharged. She usually receives hd HD [facility] but missed her HD on Sunday due to the fall. She received HD instead. Her sunday treatment was changed to Sunday, and after 1 hour into her treatment she had intractable n/v. She denies shortness of breath, abdominal pain, chest pain f/c or diarrhea. In the ER she was noted to have severe hyperglycemia with DKA and right leg xray showed fracture of the tibia and fibula. allergies: Adhesive tape, benazepril, clindamycin, ketorolac, latex, Reglan, morphine, tramadol Medications: See AUG ROS Const: As per HPI Eyes : No pain discharge or redness or change in visual acuity ENT: No pain, sore throat, congestion, congestion, dysphagia or discharge Respiratory: No shortness of breath, cough, sputum, wheezing, or pleuritic pain Cardiovascular: No chest pain, palpitation, PND, or edema GI : no change in appetite, abdominal pain, nausea, vomiting, diarrhea, constipation, or change in the color his stool Genitourinary: No dysuria, hematuria, flank pain , discharge or CVA tenderness Musculoskeletal: As per HPI Neuro: No headache, dizziness, syncope, seizure, focal weakness Endocrine: As per HPI Psych: No hallucination, depression, anxiety or suicidal ideation PMH/Family/Social PMH/Family/Social Past Medical History Diabetes mellitus complicated with diabetic retinopathy and diabetic nephropathy, end-stage renal disease on HD Sunday,, hypertension, asthma Past Surgical History Failed left AV fistula, right chest Tremayne cath Family History Significant Family History: no pertinent family hx Social History Alcohol Use: none Smoking Status: Never smoker Drug Use: none Past Medical History Medications Current Medications Miscellaneous Information (* Miscellaneous Pharmacy Order) HYPOGLYCEMIA TREATMENT HYPOGLYCEM PROTOCOL PRN XX .HYPOGLYCEMIA PROTOCOL; Start 10/20/18 at 00:00 Ondansetron HCl (Zofran Inj) 4 mg Q6H PRN IV NAUSEA AND/OR VOMITING Last administered on 10/20/18at 05:27; Admin Dose 4 MG; Start 10/20/18 at 00:00 Albuterol/ Ipratropium (Duoneb) 3 ml Q4H RESP THERAPY NEB Last administered on 10/20/18at 08:25; Admin Dose 3 ML; Start 10/20/18 at 01:00 Nitroglycerin (Nitroglycerin (Sl Tab) 0.4 Mg) 1 tab Q5M PRN SL CHEST PAIN; Start 10/20/18 at 00:00 Acetaminophen (Tylenol Liquid) 650 mg Q6H PRN PO PAIN LEVEL 1-3 OR FEVER; Start 10/20/18 at 00:00 Morphine Sulfate (morphine) 2 mg Q4H PRN IV PAIN LEVEL 7-10; Start 10/20/18 at 00:00 Docusate Sodium (Colace) 100 mg Q12H PRN PO CONSTIPATION; Start 10/20/18 at 00:00 Bisacodyl (Dulcolax) 5 mg DAILY PRN PO CONSTIPATION; Start 10/20/18 at 00:00 Pantoprazole (Protonix Iv) 40 mg DAILY@06 IV Last administered on 10/20/18at 05:31; Admin Dose 40 MG; Start 10/20/18 at 06:00 Vancomycin HCl (Vanco Iv Per Pharmacy) VANCOMYCIN PER PHARMACY PER PROTOCOL XX ; Start 10/20/18 at 01:30 Piperacillin Sod/ Tazobactam Sod 50 ml @ 100 mls/hr Q12 IVPB Last administered on 10/20/18at 09:02; Admin Dose 100 MLS/HR; Start 10/20/18 at 09:00 Hydromorphone HCl (Dilaudid) 1 mg Q4H PRN IV SEVERE PAIN LEVEL 7-10 Last administered on 10/20/18at 10:38; Admin Dose 1 MG; Start 10/20/18 at 03:00 Acetaminophen/ Hydrocodone Bitart ([place] (5/325)) 1 tab Q4H PRN PO MODERATE PAIN LEVEL 4-6; Start 10/20/18 at 03:00 Insulin Human Regular 100 unit/ Sodium Chloride 100 ml @ 0 mls/hr PER PROTOCOL IV Last administered on 10/20/18at 05:30; Admin Dose 0 MLS/HR; Start 10/20/18 at 04:00; Status Hold Lorazepam (Ativan) 1 mg Q4H PRN IV anxiety Last administered on 10/20/18at 04:34; Admin Dose 1 MG; Start 10/20/18 at 04:30 Clonidine HCl (Catapres-Tts 3 Patch) 2 patch Q7D TRANSDERM ; Start 10/21/18 at 09:00 Dextrose/Sodium Chloride 1,000 ml @ 100 mls/hr Q10H IV Last administered on 10/20/18at 07:04; Admin Dose 100 MLS/HR; Start 10/20/18 at 06:30; Status Hold Diagnostic Test (Pha) (Accu-Chek) 1 ea 02 XX ; Start 10/21/18 at 02:00 Insulin Aspart (Novolog Insulin Pen) 5 unit WITH MEALS SC ; Start 10/20/18 at 11:30 Insulin Aspart (Novolog Insulin Pen) NOVOLOG *MILD* ALGORITHM WITH MEALS BEDTIME SC ; Start 10/20/18 at 11:30 Miscellaneous Information 1 ea NOTE XX ; Start 10/20/18 at 10:30 Glucose (Glutose) 15 gm Q15M PRN PO DECREASED GLUCOSE; Start 10/20/18 at 10:30 Glucose (Glutose) 22.5 gm Q15M PRN PO DECREASED GLUCOSE; Start 10/20/18 at 10:30 Dextrose (D50w Syringe) 25 ml Q15M PRN IV DECREASED GLUCOSE; Start 10/20/18 at 10:30 Dextrose (D50w Syringe) 50 ml Q15M PRN IV DECREASED GLUCOSE; Start 10/20/18 at 10:30 Glucagon (Glucagen) 1 mg Q15M PRN IM DECREASED GLUCOSE; Start 10/20/18 at 10:30 Glucose (Glutose) 15 gm Q15M PRN BUCCAL DECREASED GLUCOSE; Start 10/20/18 at 10:30 Diphenhydramine HCl (Benadryl) 25 mg Q4H PRN IV itching; Start 10/20/18 at 11:00 Allergies: Coded Allergies: adhesive tape (Verified Allergy, Mild, 06/20/16) benazepril (Verified Allergy, Mild, 06/20/16) ketorolac (Verified Allergy, Mild, 06/20/16) latex (Verified Allergy, Mild, 06/20/16) metoclopramide (Verified Allergy, Mild, 06/20/16) morphine (Verified Allergy, Mild, 06/20/16) tramadol (Verified Allergy, Mild, 06/20/16) clindamycin (Verified Allergy, Unknown, 10/19/18) Social History Alcohol Use: none Smoking Status: Never smoker Drug Use: none Exam/Review of Systems Exam Vitals Vital Signs Date Temp Pulse Resp B/P (MAP) Pulse Ox O2 O2 Flow FiO2 Time Delivery Rate 10/20/18 79 11 113/61 96 11:00 (78) 10/20/18 21 08:25 10/20/18 98.6 Room Air 08:00 Intake and Output 10/19/18 10/19/18 10/20/18 1515:00 23:00 07:00 IntakeIntake Total 759.07 ml BalanceBalance 759.07 ml Exam gen nad cv rrr pulm ctab abd soft, nd, nt +bs ext: right leg discoloration, ecchymosis, swelling Results Result Diagram: 10/20/18 0439 10/20/18 0951 Results 24hrs Laboratory Tests Test 10/19/18 22:20 10/19/18 22:21 10/19/18 23:08 10/20/18 01:27 POC Venous 1.0 Lactate White Blood 7.1 Count Red Blood Count 2.74 L Hemoglobin 8.2 L Hematocrit 25.4 L Mean Corpuscular 92.7 Volume Mean Corpuscular 29.9 Hemoglobin Mean Corpuscular 32.3 Hemoglobin Isabel nt Red Cell 15.5 H Distribution Width Platelet Count 139 L Mean Platelet 11.9 #H Volume Immature 0.100 Granulocytes % Neutrophils % 83.3 H Lymphocytes % 3.7 L Monocytes % 9.3 Eosinophils % 3.0 Basophils % 0.6 Nucleated Red 0.0 Blood Cells % Immature 0.010 Granulocytes # Neutrophils # 5.9 Lymphocytes # 0.3 L Monocytes # 0.7 Eosinophils # 0.2 Basophils # 0.0 Nucleated Red 0.0 Blood Cells # Prothrombin Time 14.0 Prothrombin Time 1.1 Ratio INR 1.07 International Normalized Ratio Activated 29.8 Partial Thrombop last Time Sodium Level 135 Potassium Level 5.1 Chloride Level 92 L Carbon Dioxide 19 L Level Anion Gap 24 H Blood Urea 66 H Nitrogen Creatinine 8.86 H Est Glomerular 5 L Filtrat Rate mL/min Glucose Level 497 *H Hemoglobin A1c 8.0 H Calcium Level 8.4 Troponin I < 0.012 Serum HCG, NEGATIVE Qualitative Blood Gas Blood venous Specimen Source Arterial Blood 10/19/2018 11:15 Date Drawn :45 PM Arterial Blood VENOUS LINE Gas Puncture Site Maicol Test N/A Venous Blood pH 7.265 L Venous Blood 45.9 H pCO2 (Temp Corrected) Venous Blood pO2 42.1 H (Temp Corrected) Venous Blood 20.4 L HCO3 Venous Blood 69.6 Oxygen Saturation Venous Blood -6.3 L Base Excess Venous Blood 8.7 Total Hemoglobin Venous Blood 69.2 Oxyhemoglobin Venous Blood 0.2 Methemoglobin Carboxyhemoglobi 0.4 n Blood Gas 37.0 Temperature Blood Gas Actual 18 Respiration Rate Blood Gas ROOM AIR Modality FiO2 21.0 Blood Gas Notified Whom Blood Gas 10/19/2018 11:24 Notified Time :48 PM Bedside Glucose 500 *H Test 10/20/18 01:35 10/20/18 02:32 10/20/18 02:40 10/20/18 04:35 Blood Gas Blood venous Specimen Source Arterial Blood 10/20/2018 2:45: Date Drawn 25 AM Arterial Blood VENOUS LINE Gas Puncture Site Maicol Test N/A Venous Blood pH 7.262 L Venous Blood 44.0 pCO2 (Temp Corrected) Venous Blood pO2 42.0 H (Temp Corrected) Venous Blood 19.4 L HCO3 Venous Blood 68.2 Oxygen Saturation Venous Blood -7.2 L Base Excess Venous Blood 8.2 Total Hemoglobin Venous Blood 67.6 Oxyhemoglobin Venous Blood 0.3 Methemoglobin Carboxyhemoglobi 0.6 n Blood Gas 37.0 Temperature Blood Gas Actual 18 Respiration Rate Blood Gas ROOM AIR Modality FiO2 21.0 Blood Gas Notified Whom Blood Gas 10/20/2018 2:53: Notified Time 56 AM Bedside Glucose 432 *H 250 H Sodium Level 137 Potassium Level 4.9 Chloride Level 99 Carbon Dioxide 18 L Level Anion Gap 20 H Blood Urea 66 H Nitrogen Creatinine 9.10 H Est Glomerular 5 L Filtrat Rate mL/min Glucose Level 452 *H Calcium Level 8.5 Phosphorus Level 8.0 H Magnesium Level 2.3 Test 10/20/18 04:39 10/20/18 04:41 10/20/18 05:11 10/20/18 05:53 White Blood 6.0 Count Red Blood Count 2.47 L Hemoglobin 7.5 L Hematocrit 22.9 L Mean Corpuscular 92.7 Volume Mean Corpuscular 30.4 Hemoglobin Mean Corpuscular 32.8 Hemoglobin Isabel nt Red Cell 15.5 H Distribution Width Platelet Count 144 Mean Platelet 11.5 H Volume Immature 0.300 Granulocytes % Neutrophils % 77.0 Lymphocytes % 7.5 L Monocytes % 10.1 Eosinophils % 4.6 Basophils % 0.5 Nucleated Red 0.0 Blood Cells % Immature 0.020 Granulocytes # Neutrophils # 4.7 Lymphocytes # 0.5 L Monocytes # 0.6 Eosinophils # 0.3 Basophils # 0.0 Nucleated Red 0.0 Blood Cells # Sodium Level 138 Potassium Level 4.6 Chloride Level 100 Carbon Dioxide 19 L Level Anion Gap 19 H Blood Urea 71 H Nitrogen Creatinine 8.85 H Est Glomerular 5 L Filtrat Rate mL/min Glucose Level 238 #H Calcium Level 8.6 Phosphorus Level 7.5 H Magnesium Level 2.3 Erythrocyte 75 H Sedimentation Rate C-Reactive 5.7 H Protein Bedside Glucose 178 122 Test 10/20/18 07:16 10/20/18 07:55 10/20/18 08:55 10/20/18 09:23 Bedside Glucose 72 71 62 L 121 Test 10/20/18 09:51 Sodium Level 139 Potassium Level 5.4 H Chloride Level 98 Carbon Dioxide 22 Level Anion Gap 19 H Blood Urea 73 H Nitrogen Creatinine 8.49 H Est Glomerular 6 L Filtrat Rate mL/min Glucose Level 108 # Calcium Level 8.4 Phosphorus Level 8.2 H Magnesium Level 2.3 Medications Medication Current Medications Miscellaneous Information (* Miscellaneous Pharmacy Order) HYPOGLYCEMIA TREATMENT HYPOGLYCEM PROTOCOL PRN XX .HYPOGLYCEMIA PROTOCOL; Start 10/20/18 at 00:00 Ondansetron HCl (Zofran Inj) 4 mg Q6H PRN IV NAUSEA AND/OR VOMITING Last administered on 10/20/18at 05:27; Admin Dose 4 MG; Start 10/20/18 at 00:00 Albuterol/ Ipratropium (Duoneb) 3 ml Q4H RESP THERAPY NEB Last administered on 10/20/18at 08:25; Admin Dose 3 ML; Start 10/20/18 at 01:00 Nitroglycerin (Nitroglycerin (Sl Tab) 0.4 Mg) 1 tab Q5M PRN SL CHEST PAIN; Start 10/20/18 at 00:00 Acetaminophen (Tylenol Liquid) 650 mg Q6H PRN PO PAIN LEVEL 1-3 OR FEVER; Start 10/20/18 at 00:00 Morphine Sulfate (morphine) 2 mg Q4H PRN IV PAIN LEVEL 7-10; Start 10/20/18 at 00:00 Docusate Sodium (Colace) 100 mg Q12H PRN PO CONSTIPATION; Start 10/20/18 at 00:00 Bisacodyl (Dulcolax) 5 mg DAILY PRN PO CONSTIPATION; Start 10/20/18 at 00:00 Pantoprazole (Protonix Iv) 40 mg DAILY@06 IV Last administered on 10/20/18at 05:31; Admin Dose 40 MG; Start 10/20/18 at 06:00 Vancomycin HCl (Vanco Iv Per Pharmacy) VANCOMYCIN PER PHARMACY PER PROTOCOL XX ; Start 10/20/18 at 01:30 Piperacillin Sod/ Tazobactam Sod 50 ml @ 100 mls/hr Q12 IVPB Last administered on 10/20/18at 09:02; Admin Dose 100 MLS/HR; Start 10/20/18 at 09:00 Hydromorphone HCl (Dilaudid) 1 mg Q4H PRN IV SEVERE PAIN LEVEL 7-10 Last administered on 10/20/18at 10:38; Admin Dose 1 MG; Start 10/20/18 at 03:00 Acetaminophen/ Hydrocodone Bitart ([place] (5/325)) 1 tab Q4H PRN PO MODERATE PAIN LEVEL 4-6; Start 10/20/18 at 03:00 Insulin Human Regular 100 unit/ Sodium Chloride 100 ml @ 0 mls/hr PER PROTOCOL IV Last administered on 10/20/18at 05:30; Admin Dose 0 MLS/HR; Start 10/20/18 at 04:00; Status Hold Lorazepam (Ativan) 1 mg Q4H PRN IV anxiety Last administered on 10/20/18at 04:34; Admin Dose 1 MG; Start 10/20/18 at 04:30 Clonidine HCl (Catapres-Tts 3 Patch) 2 patch Q7D TRANSDERM ; Start 10/21/18 at 09:00 Dextrose/Sodium Chloride 1,000 ml @ 100 mls/hr Q10H IV Last administered on 10/20/18at 07:04; Admin Dose 100 MLS/HR; Start 10/20/18 at 06:30; Status Hold Diagnostic Test (Pha) (Accu-Chek) 1 ea 02 XX ; Start 10/21/18 at 02:00 Insulin Aspart (Novolog Insulin Pen) 5 unit WITH MEALS SC ; Start 10/20/18 at 11:30 Insulin Aspart (Novolog Insulin Pen) NOVOLOG *MILD* ALGORITHM WITH MEALS BEDTIME SC ; Start 10/20/18 at 11:30 Miscellaneous Information 1 ea NOTE XX ; Start 10/20/18 at 10:30 Glucose (Glutose) 15 gm Q15M PRN PO DECREASED GLUCOSE; Start 10/20/18 at 10:30 Glucose (Glutose) 22.5 gm Q15M PRN PO DECREASED GLUCOSE; Start 10/20/18 at 10:30 Dextrose (D50w Syringe) 25 ml Q15M PRN IV DECREASED GLUCOSE; Start 10/20/18 at 10:30 Dextrose (D50w Syringe) 50 ml Q15M PRN IV DECREASED GLUCOSE; Start 10/20/18 at 10:30 Glucagon (Glucagen) 1 mg Q15M PRN IM DECREASED GLUCOSE; Start 10/20/18 at 10:30 Glucose (Glutose) 15 gm Q15M PRN BUCCAL DECREASED GLUCOSE; Start 10/20/18 at 10:30 Diphenhydramine HCl (Benadryl) 25 mg Q4H PRN IV itching; Start 10/20/18 at 11:00 MALATHI MENDEZ MD Oct 20, 2018 12:00
[2018-10-20] MEDS: NITROGLYCERIN (SL) 0.4 MG TAB SL PRN ×2 (12:15→12:28)
[2018-10-20] MEDS: INSULIN ASPART [NOVOLOG] 3 ML PEN SC SCH ×3 (12:27→20:51)
[2018-10-20] MEDS ORDERED: INSULIN GLARGINE [LANTus] (100 UNITS/ML) SYG SC ONE (13:00)
--- NOTE | 2018-10-20 13:42 | CONS ---
DATE OF ADMISSION: 10/19/2018 DATE OF CONSULTATION: 10/20/2018 TYPE OF CONSULTATION: Infectious Disease. REASON FOR CONSULTATION: Antibiotic management. HISTORY OF PRESENT ILLNESS: Zeny Mc is a 28-year-old female who comes in with pain, swelling a nd discoloration of the right lower extremity. Ms. Mc is a 28-year-old female with end-stage jey l disease on hemodialysis who did not complete her dialysis on the day of admission. She also has a history of diabetes. She came to the emergency room with pain and swelling of the right lower extrem ity. Patient had a fall several weeks ago with outpatient evaluation for potential fracture of the l ower extremities. She was in a walking boot when she came to the emergency room. She had significant swelling and bruising to the anterior aspect of the rose. She notes that she has 7/10 pain in the r ight lower extremity without fever. PAST SURGICAL HISTORY: She has left upper extremity fistula, status post appendectomy, status post P ort-A-Cath. She had right cataract surgery and history of seizures. PAST MEDICAL HISTORY: As outlined. FAMILY HISTORY: She does have a history in the family of diabetes. SOCIAL HISTORY: She does not smoke, drink or abuse drugs. ALLERGIES: NONE TO PENICILLIN, SULFA OR FOODS. MEDICATIONS: Per chart. REVIEW OF SYSTEMS: As per HPI. PHYSICAL EXAMINATION: GENERAL: The patient appears to be malnourished. VITAL SIGNS: She is afebrile. Her blood pressure spiked up to 215/95 in the emergency room. SKIN: Without generalized rash. HEENT: Within normal limits. NECK: Supple. LYMPH NODES: None palpable. CHEST: Decreased breath sounds at the bases. HEART: Without murmur or gallop. ABDOMEN: Soft, nontender, without organosplenomegaly or masses. EXTREMITIES: She has a failed left AV fistula and she has a Tremayne catheter in the right lower ches t. The right lower extremity has evidence of unilateral swelling, bruising, ecchymosis noted to the anterior portion of the skin with a broken blister. She has no obvious bony abnormalities. RECTAL AND GENITAL: Deferred. NEUROLOGIC: No focal neurological abnormalities. ANCILLARY LABORATORY DATA: White count is 7.1, H and H 8.2 and 25.4, platelet count 139,000. BUN an d creatinine 66/8.86, glucose of 497. She has 83% neutrophils. Patient was started on vancomycin, c lindamycin and Zosyn. IMAGING: Chest x-ray shows clear starkey without evidence of pneumothorax or infiltrates. Right lowe r extremity duplex showed no DVT. Lower extremity CT showed soft tissue swelling surrounding comminu marcos slightly impacted fracture of the proximal mid diaphysis of the tibia and fibula, knee joint flui d extending to the suprapatellar bursa, extensive arterial vascular calcifications. IMPRESSION AND PLAN: The patient has cellulitis of the right lower extremity, but also has a fractur e. She should be seen by orthopedics. She is on extensive antibiotic therapy with vancomycin, clind amycin and Zosyn. I believe the clindamycin has been discontinued. I will dictate my findings to health system hospitalist. Dictated By: KIRA CARDOZA MD, JD/ALISON Conf#: [id number] DID#: [id number] CC: VINICIUS YAÑEZ MD; JUJU MARTINEZ DO; VERITO GARCIA MD;*End*
--- NOTE | 2018-10-20 14:11 | PN ---
Date/Time of Note Date/Time of Note DATE: 10/20/18 TIME: 13:55 Assessment/Plan VTE Prophylaxis Risk score (from Nsg)>0 risk: 3 SCD applied (from Nsg): Yes (Left lower extremity) Pharmacological prophylaxis: NA/contraindicated Pharm contraindication: bleeding Lines/Catheters IV Catheter Type (from Nrsg): Tremay[place] Urinary Cath still in place: No Assessment/Plan Assessment/Plan 28 yo woman with type I diabetes, ESRD on MWF dialysis, diabetic gastroparesis and multiple allergies presents with R tib/fib fracture. #Type I diabetes - At home was on lantus 10, lispro 5-15 sliding scale. - Will resume that regimen here. - Initially was admitted for "DKA" with gap of 20 and glucose 400s after fluid resuscitation. However in this ESRD patient I will tolerate a higher gap and stop IV fluids as she is anuric and at risk of fluid overload. - Also will consult endocrine for diabetes control. #Diabetic gastroparesis - The patient reports several weeks of nausea and PO intolerance attributed to diabetic gastroparesis. - She reports lip swelling and hives in reaction to metoclopramide. - Will continue small frequent meals. #ESRD - Patient is anuric. - Last dialysis was Sunday, the day prior to admission. - Dr. Spear consulted for routine dialysis. #Right tib/fib fracture - Need to get blood sugar and electrolytes under control before medically optimized for surgery. - Dr. Babcock consulted. - Keep limb immobile. - On admission she was started on broad spectrum antibiotics for "cellulitis", I do not see any evidence of this, there is a small ulcer and a large ecchymosis. Will continue antibiotics until culture results return, low threshold to discontinue. #Mid back pain - Associated with fall, also with palpable tenderness and slight deformity of spine. - No peripheral neuro findings concerning for cord compression or cauda equina - CT T+L spine. DVT: None GI: PPI Result Diagram: 10/20/18 0439 10/20/18 1311 Subjective 24 Hr Interval Summary Free Text/Dictation The patient is doing well. She complains of itchiness and wants benadryl frequency increased. Otherwise leg pain is adequately controlled. She also reports significant mid-back pain, which she said she also struck in the fall. Exam/Review of Systems Exam Vitals Vital Signs Date Temp Pulse Resp B/P (MAP) Pulse Ox O2 O2 Flow FiO2 Time Delivery Rate 10/20/18 85 17 94/79 (84) 98 Room Air 12:00 10/20/18 21 08:25 10/20/18 98.6 08:00 Intake and Output 10/19/18 10/19/18 10/20/18 1515:00 23:00 07:00 IntakeIntake Total 759.07 ml BalanceBalance 759.07 ml Exam General: Well developed young woman lying in bed, in mild pain from her right lower extremity, legally blind HEENT: Atraumatic, normocephalic. Moist mucous membranes, clear oropharynx Neck: Supple with full range of motion. No rigidity or meningismus Chest: Right Tremayne cath Lungs: Clear to auscultation bilaterally no crackles rales or wheezing Heart: Normal S1-S2, Regular rhythm and rate. No murmur, S3, or S4 Abdomen: Soft , nontender, nondistended , bowel sounds are present. No guarding no rebound tenderness , No masses or organomegaly. No costovertebral temporal angle mass Extremities: Right lower extremity significant discoloration of the anterior rose, warm to touch, distal pulses palpable, no cyanosis noted Neurologic: Normal mental status, speech normal. Pupils nonreactive to light bilaterally. Results Results 24hrs Laboratory Tests Test 10/19/18 22:20 10/19/18 22:21 10/19/18 23:08 10/20/18 01:27 POC Venous 1.0 Lactate White Blood 7.1 Count Red Blood Count 2.74 L Hemoglobin 8.2 L Hematocrit 25.4 L Mean Corpuscular 92.7 Volume Mean Corpuscular 29.9 Hemoglobin Mean Corpuscular 32.3 Hemoglobin Isabel nt Red Cell 15.5 H Distribution Width Platelet Count 139 L Mean Platelet 11.9 #H Volume Immature 0.100 Granulocytes % Neutrophils % 83.3 H Lymphocytes % 3.7 L Monocytes % 9.3 Eosinophils % 3.0 Basophils % 0.6 Nucleated Red 0.0 Blood Cells % Immature 0.010 Granulocytes # Neutrophils # 5.9 Lymphocytes # 0.3 L Monocytes # 0.7 Eosinophils # 0.2 Basophils # 0.0 Nucleated Red 0.0 Blood Cells # Prothrombin Time 14.0 Prothrombin Time 1.1 Ratio INR 1.07 International Normalized Ratio Activated 29.8 Partial Thrombop last Time Sodium Level 135 Potassium Level 5.1 Chloride Level 92 L Carbon Dioxide 19 L Level Anion Gap 24 H Blood Urea 66 H Nitrogen Creatinine 8.86 H Est Glomerular 5 L Filtrat Rate mL/min Glucose Level 497 *H Hemoglobin A1c 8.0 H Calcium Level 8.4 Troponin I < 0.012 Serum HCG, NEGATIVE Qualitative Blood Gas Blood venous Specimen Source Arterial Blood 10/19/2018 11:15 Date Drawn :45 PM Arterial Blood VENOUS LINE Gas Puncture Site Maicol Test N/A Venous Blood pH 7.265 L Venous Blood 45.9 H pCO2 (Temp Corrected) Venous Blood pO2 42.1 H (Temp Corrected) Venous Blood 20.4 L HCO3 Venous Blood 69.6 Oxygen Saturation Venous Blood -6.3 L Base Excess Venous Blood 8.7 Total Hemoglobin Venous Blood 69.2 Oxyhemoglobin Venous Blood 0.2 Methemoglobin Carboxyhemoglobi 0.4 n Blood Gas 37.0 Temperature Blood Gas Actual 18 Respiration Rate Blood Gas ROOM AIR Modality FiO2 21.0 Blood Gas Notified Whom Blood Gas 10/19/2018 11:24 Notified Time :48 PM Bedside Glucose 500 *H Test 10/20/18 01:35 10/20/18 02:32 10/20/18 02:40 10/20/18 04:35 Blood Gas Blood venous Specimen Source Arterial Blood 10/20/2018 2:45: Date Drawn 25 AM Arterial Blood VENOUS LINE Gas Puncture Site Maicol Test N/A Venous Blood pH 7.262 L Venous Blood 44.0 pCO2 (Temp Corrected) Venous Blood pO2 42.0 H (Temp Corrected) Venous Blood 19.4 L HCO3 Venous Blood 68.2 Oxygen Saturation Venous Blood -7.2 L Base Excess Venous Blood 8.2 Total Hemoglobin Venous Blood 67.6 Oxyhemoglobin Venous Blood 0.3 Methemoglobin Carboxyhemoglobi 0.6 n Blood Gas 37.0 Temperature Blood Gas Actual 18 Respiration Rate Blood Gas ROOM AIR Modality FiO2 21.0 Blood Gas Notified Whom Blood Gas 10/20/2018 2:53: Notified Time 56 AM Bedside Glucose 432 *H 250 H Sodium Level 137 Potassium Level 4.9 Chloride Level 99 Carbon Dioxide 18 L Level Anion Gap 20 H Blood Urea 66 H Nitrogen Creatinine 9.10 H Est Glomerular 5 L Filtrat Rate mL/min Glucose Level 452 *H Calcium Level 8.5 Phosphorus Level 8.0 H Magnesium Level 2.3 Test 10/20/18 04:39 10/20/18 04:41 10/20/18 05:11 10/20/18 05:53 White Blood 6.0 Count Red Blood Count 2.47 L Hemoglobin 7.5 L Hematocrit 22.9 L Mean Corpuscular 92.7 Volume Mean Corpuscular 30.4 Hemoglobin Mean Corpuscular 32.8 Hemoglobin Isabel nt Red Cell 15.5 H Distribution Width Platelet Count 144 Mean Platelet 11.5 H Volume Immature 0.300 Granulocytes % Neutrophils % 77.0 Lymphocytes % 7.5 L Monocytes % 10.1 Eosinophils % 4.6 Basophils % 0.5 Nucleated Red 0.0 Blood Cells % Immature 0.020 Granulocytes # Neutrophils # 4.7 Lymphocytes # 0.5 L Monocytes # 0.6 Eosinophils # 0.3 Basophils # 0.0 Nucleated Red 0.0 Blood Cells # Sodium Level 138 Potassium Level 4.6 Chloride Level 100 Carbon Dioxide 19 L Level Anion Gap 19 H Blood Urea 71 H Nitrogen Creatinine 8.85 H Est Glomerular 5 L Filtrat Rate mL/min Glucose Level 238 #H Calcium Level 8.6 Phosphorus Level 7.5 H Magnesium Level 2.3 Erythrocyte 75 H Sedimentation Rate C-Reactive 5.7 H Protein Bedside Glucose 178 122 Test 10/20/18 07:16 10/20/18 07:55 10/20/18 08:55 10/20/18 09:23 Bedside Glucose 72 71 62 L 121 Test 10/20/18 09:51 10/20/18 11:40 10/20/18 12:23 10/20/18 13:06 Sodium Level 139 Potassium Level 5.4 H Chloride Level 98 Carbon Dioxide 22 Level Anion Gap 19 H Blood Urea 73 H Nitrogen Creatinine 8.49 H Est Glomerular 6 L Filtrat Rate mL/min Glucose Level 108 # Calcium Level 8.4 Phosphorus Level 8.2 H Magnesium Level 2.3 Bedside Glucose 265 H 297 H 279 H Test 10/20/18 13:11 Sodium Level 139 Potassium Level 4.2 Chloride Level 107 Carbon Dioxide 16 L Level Anion Gap 16 H Blood Urea 60 H Nitrogen Creatinine 7.11 H Est Glomerular 7 L Filtrat Rate mL/min Glucose Level 210 # Calcium Level 6.8 L Phosphorus Level 7.1 H Magnesium Level 1.8 Medications Medication Current Medications Miscellaneous Information (* Miscellaneous Pharmacy Order) HYPOGLYCEMIA TREATMENT HYPOGLYCEM PROTOCOL PRN XX .HYPOGLYCEMIA PROTOCOL; Start 10/20/18 at 00:00 Ondansetron HCl (Zofran Inj) 4 mg Q6H PRN IV NAUSEA AND/OR VOMITING Last administered on 10/20/18at 11:53; Admin Dose 4 MG; Start 10/20/18 at 00:00 Albuterol/ Ipratropium (Duoneb) 3 ml Q4H RESP THERAPY NEB Last administered on 10/20/18at 08:25; Admin Dose 3 ML; Start 10/20/18 at 01:00 Nitroglycerin (Nitroglycerin (Sl Tab) 0.4 Mg) 1 tab Q5M PRN SL CHEST PAIN Last administered on 10/20/18at 12:28; Admin Dose 1 TAB; Start 10/20/18 at 00:00 Acetaminophen (Tylenol Liquid) 650 mg Q6H PRN PO PAIN LEVEL 1-3 OR FEVER; Start 10/20/18 at 00:00 Morphine Sulfate (morphine) 2 mg Q4H PRN IV PAIN LEVEL 7-10; Start 10/20/18 at 00:00 Docusate Sodium (Colace) 100 mg Q12H PRN PO CONSTIPATION; Start 10/20/18 at 00:00 Bisacodyl (Dulcolax) 5 mg DAILY PRN PO CONSTIPATION; Start 10/20/18 at 00:00 Pantoprazole (Protonix Iv) 40 mg DAILY@06 IV Last administered on 10/20/18at 05:31; Admin Dose 40 MG; Start 10/20/18 at 06:00 Vancomycin HCl (Vanco Iv Per Pharmacy) VANCOMYCIN PER PHARMACY PER PROTOCOL XX ; Start 10/20/18 at 01:30 Piperacillin Sod/ Tazobactam Sod 50 ml @ 100 mls/hr Q12 IVPB Last administered on 10/20/18at 09:02; Admin Dose 100 MLS/HR; Start 10/20/18 at 09:00 Hydromorphone HCl (Dilaudid) 1 mg Q4H PRN IV SEVERE PAIN LEVEL 7-10 Last administered on 10/20/18at 10:38; Admin Dose 1 MG; Start 10/20/18 at 03:00 Acetaminophen/ Hydrocodone Bitart ([place] (5/325)) 1 tab Q4H PRN PO MODERATE PAIN LEVEL 4-6; Start 10/20/18 at 03:00 Insulin Human Regular 100 unit/ Sodium Chloride 100 ml @ 0 mls/hr PER PROTOCOL IV Last administered on 10/20/18at 05:30; Admin Dose 0 MLS/HR; Start 10/20/18 at 04:00; Status Hold Lorazepam (Ativan) 1 mg Q4H PRN IV anxiety Last administered on 10/20/18at 13:52; Admin Dose 1 MG; Start 10/20/18 at 04:30 Clonidine HCl (Catapres-Tts 3 Patch) 2 patch Q7D TRANSDERM ; Start 10/21/18 at 09:00 Dextrose/Sodium Chloride 1,000 ml @ 100 mls/hr Q10H IV Last administered on 10/20/18at 07:04; Admin Dose 100 MLS/HR; Start 10/20/18 at 06:30; Status Hold Diagnostic Test (Pha) (Accu-Chek) 1 ea 02 XX ; Start 10/21/18 at 02:00 Insulin Aspart (Novolog Insulin Pen) NOVOLOG *MILD* ALGORITHM WITH MEALS BEDTIME SC Last administered on 10/20/18at 12:27; Admin Dose 4 UNIT; Start 10/20/18 at 11:30 Miscellaneous Information 1 ea NOTE XX ; Start 10/20/18 at 10:30 Glucose (Glutose) 15 gm Q15M PRN PO DECREASED GLUCOSE; Start 10/20/18 at 10:30 Glucose (Glutose) 22.5 gm Q15M PRN PO DECREASED GLUCOSE; Start 10/20/18 at 10: 30 Dextrose (D50w Syringe) 25 ml Q15M PRN IV DECREASED GLUCOSE; Start 10/20/18 at 10:30 Dextrose (D50w Syringe) 50 ml Q15M PRN IV DECREASED GLUCOSE; Start 10/20/18 at 10:30 Glucagon (Glucagen) 1 mg Q15M PRN IM DECREASED GLUCOSE; Start 10/20/18 at 10:30 Glucose (Glutose) 15 gm Q15M PRN BUCCAL DECREASED GLUCOSE; Start 10/20/18 at 10:30 Insulin Glargine (Lantus) 10 units DAILY@1000 SC ; Start 10/21/18 at 10:00 Insulin Aspart (Novolog Insulin Pen) 10 unit WITH MEALS SC ; Start 10/20/18 at 17:35 VINICIUS YAÑEZ MD Oct 20, 2018 14:06
--- NOTE | 2018-10-20 15:55 | CONS ---
Assessment/Plan Assessment/Plan Hospital Course (Demo Recall) 28-year-old female with longstanding uncontrolled type 1 DM diagnosed at age 6 complicated by retinopathy, neuropathy and ESRD who presented to the emergency department for evaluation of nausea and vomiting for the past few days. She went to HD yesterday but was unable to complete her session due to nausea and vomiting. She also recently twisted her ankle due to a fall, she was walking down the steps at home but missed a step and twisted her ankle. She reports taking her insulin despite nausea and vomiting but FS readings have been ranging from hypoglycemia to hyperglycemia. She takes Lantus 10 units in AM and Humalog 5-15 units TIDAC depending on FS reading. Endocrine consulted for management of diabetes mellitus with underlying DKA. Her FS drastically improved after being on insulin drip and was discontinued this morning due to hypoglycemia. Her anion gap although still elevated is much improved and the increase in AG is likely multifactorial, eg DKA and ESRD. Given that her AG is improving, will transition her to SC insulin. Latest FS for 5pm reviewed, patient developed hypoglycemia after getting 5 units of standing Novolog and 4 units correction dose Novolog. Type 1 DM -start Lantus 10 units daily, (first dose given this morning) -Novolog 10 units TIDAC ordered by primary team but given hypoglycemia after 9 units of Novolog given around noon, will decrease standing Novolog to 5 units TIDAC -agree with low dose Novolog corrections scale AC and HS -check FS AC and HS -will monitor FS and adjust regimen accordingly Consultation Date/Type/Reason Admit Date/Time Date/Time of Note DATE: 10/20/18 TIME: 15:41 Hx of Present Illness 28-year-old female with longstanding uncontrolled type 1 DM diagnosed at age 6 complicated by retinopathy, neuropathy and ESRD who presented to the emergency department for evaluation of nausea and vomiting for the past few days. She went to HD yesterday but was unable to complete her session due to nausea and vomiting. She also recently twisted her ankle due to a fall, she was walking down the steps at home but missed a step and twisted her ankle. She reports taking her insulin despite nausea and vomiting but FS readings have been ranging from hypoglycemia to hyperglycemia. She takes Lantus 10 units in AM and Humalog 5-15 units TIDAC depending on FS reading. Endocrine consulted for management of diabetes mellitus with underlying DKA. Constitutional: No fever, No chills, No sweats. Eye: No discharge. No icterus ENMT: No decreased hearing, no ear pain Genitourinary: On HD Respiratory: No shortness of breath, cough or sputum production Cardiovascular: No chest pain, No palpitations. Gastrointestinal: Nausea and vomiting Integumentary: Rash on b/l lower extremity Neurologic: Alert and oriented, No confusion. Psychiatric: Not delusional. No anxiety Past Medical History Medical History: diabetes, renal disease Medications Current Medications Miscellaneous Information (* Miscellaneous Pharmacy Order) HYPOGLYCEMIA TREATMENT HYPOGLYCEM PROTOCOL PRN XX .HYPOGLYCEMIA PROTOCOL; Start 10/20/18 at 00:00 Ondansetron HCl (Zofran Inj) 4 mg Q6H PRN IV NAUSEA AND/OR VOMITING Last administered on 10/20/18at 11:53; Admin Dose 4 MG; Start 10/20/18 at 00:00 Albuterol/ Ipratropium (Duoneb) 3 ml Q4H RESP THERAPY NEB Last administered on 10/20/18at 08:25; Admin Dose 3 ML; Start 10/20/18 at 01:00 Nitroglycerin (Nitroglycerin (Sl Tab) 0.4 Mg) 1 tab Q5M PRN SL CHEST PAIN Last administered on 10/20/18at 12:28; Admin Dose 1 TAB; Start 10/20/18 at 00:00 Acetaminophen (Tylenol Liquid) 650 mg Q6H PRN PO PAIN LEVEL 1-3 OR FEVER; Start 10/20/18 at 00:00 Morphine Sulfate (morphine) 2 mg Q4H PRN IV PAIN LEVEL 7-10; Start 10/20/18 at 00:00 Docusate Sodium (Colace) 100 mg Q12H PRN PO CONSTIPATION; Start 10/20/18 at 00:00 Bisacodyl (Dulcolax) 5 mg DAILY PRN PO CONSTIPATION; Start 10/20/18 at 00:00 Pantoprazole (Protonix Iv) 40 mg DAILY@06 IV Last administered on 10/20/18at 05:31; Admin Dose 40 MG; Start 10/20/18 at 06:00 Vancomycin HCl (Vanco Iv Per Pharmacy) VANCOMYCIN PER PHARMACY PER PROTOCOL XX ; Start 10/20/18 at 01:30 Piperacillin Sod/ Tazobactam Sod 50 ml @ 100 mls/hr Q12 IVPB Last administered on 10/20/18at 09:02; Admin Dose 100 MLS/HR; Start 10/20/18 at 09:00 Hydromorphone HCl (Dilaudid) 1 mg Q4H PRN IV SEVERE PAIN LEVEL 7-10 Last ad ministered on 10/20/18at 14:46; Admin Dose 1 MG; Start 10/20/18 at 03:00 Acetaminophen/ Hydrocodone Bitart ([place] (5/325)) 1 tab Q4H PRN PO MODERATE PAIN LEVEL 4-6; Start 10/20/18 at 03:00 Insulin Human Regular 100 unit/ Sodium Chloride 100 ml @ 0 mls/hr PER PROTOCOL IV Last administered on 10/20/18at 05:30; Admin Dose 0 MLS/HR; Start 10/20/18 at 04:00; Status Hold Lorazepam (Ativan) 1 mg Q4H PRN IV anxiety Last administered on 10/20/18at 13:52; Admin Dose 1 MG; Start 10/20/18 at 04:30 Clonidine HCl (Catapres-Tts 3 Patch) 2 patch Q7D TRANSDERM ; Start 10/21/18 at 09:00 Dextrose/Sodium Chloride 1,000 ml @ 100 mls/hr Q10H IV Last administered on 10/20/18at 07:04; Admin Dose 100 MLS/HR; Start 10/20/18 at 06:30; Status Hold Diagnostic Test (Pha) (Accu-Chek) 1 ea 02 XX ; Start 10/21/18 at 02:00 Insulin Aspart (Novolog Insulin Pen) NOVOLOG *MILD* ALGORITHM WITH MEALS BEDTIME SC Last administered on 10/20/18at 12:27; Admin Dose 4 UNIT; Start 10/20/18 at 11:30 Miscellaneous Information 1 ea NOTE XX ; Start 10/20/18 at 10:30 Glucose (Glutose) 15 gm Q15M PRN PO DECREASED GLUCOSE; Start 10/20/18 at 10:30 Glucose (Glutose) 22.5 gm Q15M PRN PO DECREASED GLUCOSE; Start 10/20/18 at 10:30 Dextrose (D50w Syringe) 25 ml Q15M PRN IV DECREASED GLUCOSE; Start 10/20/18 at 10:30 Dextrose (D50w Syringe) 50 ml Q15M PRN IV DECREASED GLUCOSE; Start 10/20/18 at 10:30 Glucagon (Glucagen) 1 mg Q15M PRN IM DECREASED GLUCOSE; Start 10/20/18 at 10:30 Glucose (Glutose) 15 gm Q15M PRN BUCCAL DECREASED GLUCOSE; Start 10/20/18 at 10:30 Insulin Glargine (Lantus) 10 units DAILY@1000 SC ; Start 10/21/18 at 10:00 Insulin Aspart (Novolog Insulin Pen) 10 unit WITH MEALS SC ; Start 10/20/18 at 17:35 Allergies: Coded Allergies: adhesive tape (Verified Allergy, Mild, 06/20/16) benazepril (Verified Allergy, Mild, 06/20/16) ketorolac (Verified Allergy, Mild, 06/20/16) latex (Verified Allergy, Mild, 06/20/16) metoclopramide (Verified Allergy, Mild, 06/20/16) morphine (Verified Allergy, Mild, 06/20/16) tramadol (Verified Allergy, Mild, 06/20/16) clindamycin (Verified Allergy, Unknown, 10/19/18) Past Surgical History Past Surgical Hx: other (AV fistula) Family History Significant Family History: diabetes Social History Alcohol Use: none Smoking Status: Never smoker Drug Use: none Exam/Review of Systems Exam Vitals Vital Signs Date Temp Pulse Resp B/P (MAP) Pulse Ox O2 O2 Flow FiO2 Time Delivery Rate 10/20/18 80 12 140/84 94 15:00 (102) 10/20/18 Room Air 12:00 10/20/18 21 08:25 10/20/18 98.6 08:00 Intake and Output 10/19/18 10/19/18 10/20/18 1515:00 23:00 07:00 IntakeIntake Total 759.07 ml BalanceBalance 759.07 ml Exam General: Appears uncomfortable as patient is actively vomiting. Skin appropriate for ethnicity Eye: Extraocular movements are intact, Normal conjunctiva. HENT: Normocephalic, atraumatic. Respiratory: Respirations are non-labored, Breath sounds are equal, Symmetrical chest wall expansion. Cardiovascular: S1, S2. No murmur. Gastrointestinal: Soft, Non-tender, Non-distended, Normal bowel sounds. Integumentary: Warm to touch. Purple red bruises on right lower leg with swelling Neurologic: Alert, Oriented. Cognition and Speech: Speech clear and coherent, Functional cognition intact. Psychiatric: Cooperative, Appropriate mood & affect. Results Result Diagram: 10/20/18 0439 10/20/18 1311 Results 24hrs Laboratory Tests Test 10/19/18 22:20 10/19/18 22:21 10/19/18 23:08 10/20/18 01:27 POC Venous 1.0 Lactate White Blood 7.1 Count Red Blood Count 2.74 L Hemoglobin 8.2 L Hematocrit 25.4 L Mean Corpuscular 92.7 Volume Mean Corpuscular 29.9 Hemoglobin Mean Corpuscular 32.3 Hemoglobin Isabel nt Red Cell 15.5 H Distribution Width Platelet Count 139 L Mean Platelet 11.9 #H Volume Immature 0.100 Granulocytes % Neutrophils % 83.3 H Lymphocytes % 3.7 L Monocytes % 9.3 Eosinophils % 3.0 Basophils % 0.6 Nucleated Red 0.0 Blood Cells % Immature 0.010 Granulocytes # Neutrophils # 5.9 Lymphocytes # 0.3 L Monocytes # 0.7 Eosinophils # 0.2 Basophils # 0.0 Nucleated Red 0.0 Blood Cells # Prothrombin Time 14.0 Prothrombin Time 1.1 Ratio INR 1.07 International Normalized Ratio Activated 29.8 Partial Thrombop last Time Sodium Level 135 Potassium Level 5.1 Chloride Level 92 L Carbon Dioxide 19 L Level Anion Gap 24 H Blood Urea 66 H Nitrogen Creatinine 8.86 H Est Glomerular 5 L Filtrat Rate mL/min Glucose Level 497 *H Hemoglobin A1c 8.0 H Calcium Level 8.4 Troponin I < 0.012 Serum HCG, NEGATIVE Qualitative Blood Gas Blood venous Specimen Source Arterial Blood 10/19/2018 11:15 Date Drawn :45 PM Arterial Blood VENOUS LINE Gas Puncture Site Maicol Test N/A Venous Blood pH 7.265 L Venous Blood 45.9 H pCO2 (Temp Corrected) Venous Blood pO2 42.1 H (Temp Corrected) Venous Blood 20.4 L HCO3 Venous Blood 69.6 Oxygen Saturation Venous Blood -6.3 L Base Excess Venous Blood 8.7 Total Hemoglobin Venous Blood 69.2 Oxyhemoglobin Venous Blood 0.2 Methemoglobin Carboxyhemoglobi 0.4 n Blood Gas 37.0 Temperature Blood Gas Actual 18 Respiration Rate Blood Gas ROOM AIR Modality FiO2 21.0 Blood Gas Notified Whom Blood Gas 10/19/2018 11:24 Notified Time :48 PM Bedside Glucose 500 *H Test 10/20/18 01:35 10/20/18 02:32 10/20/18 02:40 10/20/18 04:35 Blood Gas Blood venous Specimen Source Arterial Blood 10/20/2018 2:45: Date Drawn 25 AM Arterial Blood VENOUS LINE Gas Puncture Site Maicol Test N/A Venous Blood pH 7.262 L Venous Blood 44.0 pCO2 (Temp Corrected) Venous Blood pO2 42.0 H (Temp Corrected) Venous Blood 19.4 L HCO3 Venous Blood 68.2 Oxygen Saturation Venous Blood -7.2 L Base Excess Venous Blood 8.2 Total Hemoglobin Venous Blood 67.6 Oxyhemoglobin Venous Blood 0.3 Methemoglobin Carboxyhemoglobi 0.6 n Blood Gas 37.0 Temperature Blood Gas Actual 18 Respiration Rate Blood Gas ROOM AIR Modality FiO2 21.0 Blood Gas MH Notified Whom Blood Gas 10/20/2018 2:53: Notified Time 56 AM Bedside Glucose 432 *H 250 H Sodium Level 137 Potassium Level 4.9 Chloride Level 99 Carbon Dioxide 18 L Level Anion Gap 20 H Blood Urea 66 H Nitrogen Creatinine 9.10 H Est Glomerular 5 L Filtrat Rate mL/min Glucose Level 452 *H Calcium Level 8.5 Phosphorus Level 8.0 H Magnesium Level 2.3 Test 10/20/18 04:39 10/20/18 04:41 10/20/18 05:11 10/20/18 05:53 White Blood 6.0 Count Red Blood Count 2.47 L Hemoglobin 7.5 L Hematocrit 22.9 L Mean Corpuscular 92.7 Volume Mean Corpuscular 30.4 Hemoglobin Mean Corpuscular 32.8 Hemoglobin Isabel nt Red Cell 15.5 H Distribution Width Platelet Count 144 Mean Platelet 11.5 H Volume Immature 0.300 Granulocytes % Neutrophils % 77.0 Lymphocytes % 7.5 L Monocytes % 10.1 Eosinophils % 4.6 Basophils % 0.5 Nucleated Red 0.0 Blood Cells % Immature 0.020 Granulocytes # Neutrophils # 4.7 Lymphocytes # 0.5 L Monocytes # 0.6 Eosinophils # 0.3 Basophils # 0.0 Nucleated Red 0.0 Blood Cells # Sodium Level 138 Potassium Level 4.6 Chloride Level 100 Carbon Dioxide 19 L Level Anion Gap 19 H Blood Urea 71 H Nitrogen Creatinine 8.85 H Est Glomerular 5 L Filtrat Rate mL/min Glucose Level 238 #H Calcium Level 8.6 Phosphorus Level 7.5 H Magnesium Level 2.3 Erythrocyte 75 H Sedimentation Rate C-Reactive 5.7 H Protein Bedside Glucose 178 122 Test 10/20/18 07:16 10/20/18 07:55 10/20/18 08:55 10/20/18 09:23 Bedside Glucose 72 71 62 L 121 Test 10/20/18 09:51 10/20/18 11:40 10/20/18 12:23 10/20/18 13:06 Sodium Level 139 Potassium Level 5.4 H Chloride Level 98 Carbon Dioxide 22 Level Anion Gap 19 H Blood Urea 73 H Nitrogen Creatinine 8.49 H Est Glomerular 6 L Filtrat Rate mL/min Glucose Level 108 # Calcium Level 8.4 Phosphorus Level 8.2 H Magnesium Level 2.3 Bedside Glucose 265 H 297 H 279 H Test 10/20/18 13:11 Sodium Level 139 Potassium Level 4.2 Chloride Level 107 Carbon Dioxide 16 L Level Anion Gap 16 H Blood Urea 60 H Nitrogen Creatinine 7.11 H Est Glomerular 7 L Filtrat Rate mL/min Glucose Level 210 # Calcium Level 6.8 L Phosphorus Level 7.1 H Magnesium Level 1.8 Medications Medication Current Medications Miscellaneous Information (* Miscellaneous Pharmacy Order) HYPOGLYCEMIA TREATMENT HYPOGLYCEM PROTOCOL PRN XX .HYPOGLYCEMIA PROTOCOL; Start 10/20/18 at 00:00 Ondansetron HCl (Zofran Inj) 4 mg Q6H PRN IV NAUSEA AND/OR VOMITING Last administered on 10/20/18at 11:53; Admin Dose 4 MG; Start 10/20/18 at 00:00 Albuterol/ Ipratropium (Duoneb) 3 ml Q4H RESP THERAPY NEB Last administered on 10/20/18at 08:25; Admin Dose 3 ML; Start 10/20/18 at 01:00 Nitroglycerin (Nitroglycerin (Sl Tab) 0.4 Mg) 1 tab Q5M PRN SL CHEST PAIN Last administered on 10/20/18at 12:28; Admin Dose 1 TAB; Start 10/20/18 at 00:00 Acetaminophen (Tylenol Liquid) 650 mg Q6H PRN PO PAIN LEVEL 1-3 OR FEVER; Start 10/20/18 at 00:00 Morphine Sulfate (morphine) 2 mg Q4H PRN IV PAIN LEVEL 7-10; Start 10/20/18 at 00:00 Docusate Sodium (Colace) 100 mg Q12H PRN PO CONSTIPATION; Start 10/20/18 at 00:00 Bisacodyl (Dulcolax) 5 mg DAILY PRN PO CONSTIPATION; Start 10/20/18 at 00:00 Pantoprazole (Protonix Iv) 40 mg DAILY@06 IV Last administered on 10/20/18at 05:31; Admin Dose 40 MG; Start 10/20/18 at 06:00 Vancomycin HCl (Vanco Iv Per Pharmacy) VANCOMYCIN PER PHARMACY PER PROTOCOL XX ; Start 10/20/18 at 01:30 Piperacillin Sod/ Tazobactam Sod 50 ml @ 100 mls/hr Q12 IVPB Last administered on 10/20/18at 09:02; Admin Dose 100 MLS/HR; Start 10/20/18 at 09:00 Hydromorphone HCl (Dilaudid) 1 mg Q4H PRN IV SEVERE PAIN LEVEL 7-10 Last administered on 10/20/18at 14:46; Admin Dose 1 MG; Start 10/20/18 at 03:00 Acetaminophen/ Hydrocodone Bitart ([place] (5/325)) 1 tab Q4H PRN PO MODERATE PAIN LEVEL 4-6; Start 10/20/18 at 03:00 Insulin Human Regular 100 unit/ Sodium Chloride 100 ml @ 0 mls/hr PER PROTOCOL IV Last administered on 10/20/18at 05:30; Admin Dose 0 MLS/HR; Start 10/20/18 at 04:00; Status Hold Lorazepam (Ativan) 1 mg Q4H PRN IV anxiety Last administered on 10/20/18at 13:52; Admin Dose 1 MG; Start 10/20/18 at 04:30 Clonidine HCl (Catapres-Tts 3 Patch) 2 patch Q7D TRANSDERM ; Start 10/21/18 at 09:00 Dextrose/Sodium Chloride 1,000 ml @ 100 mls/hr Q10H IV Last administered on 10/20/18at 07:04; Admin Dose 100 MLS/HR; Start 10/20/18 at 06:30; Status Hold Diagnostic Test (Pha) (Accu-Chek) 1 ea 02 XX ; Start 10/21/18 at 02:00 Insulin Aspart (Novolog Insulin Pen) NOVOLOG *MILD* ALGORITHM WITH MEALS BEDTIME SC Last administered on 10/20/18at 12:27; Admin Dose 4 UNIT; Start 10/20/18 at 11:30 Miscellaneous Information 1 ea NOTE XX ; Start 10/20/18 at 10:30 Glucose (Glutose) 15 gm Q15M PRN PO DECREASED GLUCOSE; Start 10/20/18 at 10:30 Glucose (Glutose) 22.5 gm Q15M PRN PO DECREASED GLUCOSE; Start 10/20/18 at 10:30 Dextrose (D50w Syringe) 25 ml Q15M PRN IV DECREASED GLUCOSE; Start 10/20/18 at 10:30 Dextrose (D50w Syringe) 50 ml Q15M PRN IV DECREASED GLUCOSE; Start 10/20/18 at 10:30 Glucagon (Glucagen) 1 mg Q15M PRN IM DECREASED GLUCOSE; Start 10/20/18 at 10:30 Glucose (Glutose) 15 gm Q15M PRN BUCCAL DECREASED GLUCOSE; Start 10/20/18 at 10:30 Insulin Glargine (Lantus) 10 units DAILY@1000 SC ; Start 10/21/18 at 10:00 Insulin Aspart (Novolog Insulin Pen) 10 unit WITH MEALS SC ; Start 10/20/18 at 17:35 RAHEL FAJARDO MD Oct 20, 2018 15:53
[2018-10-20] MEDS ORDERED: DIPHENHYDRAMINE 50 MG INJ IM PRN (17:30)
[2018-10-20] MEDS: DIPHENHYDRAMINE 50 MG INJ IV PRN ×2 (18:10→22:51)
[2018-10-20] MEDS ORDERED: HYDROmorphONE 0.5 MG/0.5 ML SYG IV STA (22:47)
[2018-10-20] MEDS: hydrALAzine 20 MG INJ IV PRN (23:36)
[2018-10-21] VITALS (52 sets, daily range): BP systolic 109–256; BP diastolic 60–123; PULSE 64–105; RESP 10–28
[2018-10-21] MEDS: morphine 2 MG INJ IV PRN ×2 (01:33→10:18)
[2018-10-21] MEDS: ALBUTEROL/IPRATROPIUM (NEB) 3 ML AMP NEB SCH ×3 (01:54→08:10)
[2018-10-21] MEDS: ONDANSETRON 4 MG INJ IV PRN ×3 (02:28→10:18)
[2018-10-21] MEDS: LORAZEPAM 2 MG INJ IV PRN ×4 (02:28→22:57)
[2018-10-21] MEDS: hydrALAzine 20 MG INJ IV PRN ×4 (02:29→15:41)
[2018-10-21] MEDS: ACCU-CHEK XX SCH (02:29)
[2018-10-21] MEDS: HYDROmorphONE 1 MG/ML SYG IV PRN (03:53)
[2018-10-21] MEDS: DIPHENHYDRAMINE 50 MG INJ IV PRN (04:12)
[2018-10-21] MEDS ORDERED: AMLODIPINE 10 MG TAB PO ONE (05:00)
[2018-10-21] MEDS ORDERED: HYDROmorphONE 1 MG/ML SYG IV ONE (05:00)
[2018-10-21] MEDS: PANTOPRAZOLE 40 MG INJ IV SCH (06:07)
[2018-10-21] MEDS ORDERED: hydrALAzine 20 MG INJ IV ONE (07:30)
[2018-10-21] MEDS ORDERED: DIPHENHYDRAMINE 50 MG INJ IV ONE ×2 (08:00)
[2018-10-21] MEDS: INSULIN ASPART [NOVOLOG] 3 ML PEN SC SCH ×5 (09:00→21:00)
--- NOTE | 2018-10-21 09:36 | PN ---
DATE: 10/21/2018 SUBJECTIVE: The patient is stable, no events overnight. The patient is pending hemodialysis today. OBJECTIVE: VITAL SIGNS: Blood pressure is 125/60, respirations 16, pulse 84, temperature 98.7. HEENT: Head is normocephalic. NECK: Supple. HEART: Regular rate. LUNGS: Show diminished breath sounds at the base. ABDOMEN: Soft, nontender to palpation without rebound or guarding. EXTREMITIES: Negative for clubbing, cyanosis, no edema. DERMATOLOGIC: No rashes. MUSCULOSKELETAL: No joint effusion. NEUROLOGIC: No change in exam. MEDICATIONS: The patient's medications have been reviewed. LABORATORY DATA: Has been reviewed. ASSESSMENT AND PLAN: 1. End-stage renal disease. Plan for dialysis today. The patient will be dialyzed for 3 hours 2k b ath, calcium 2.5. Will give Benadryl with hemodialysis. We will use a hypoallergenic filter as jesica ent previously has had reaction to dialysis filter. Will monitor closely. 2. Hyperkalemia. The patient will be dialyzed on low potassium bath. 3. Anemia. Continue to monitor hemoglobin and hematocrit levels. Will give Epogen as needed. 4. Mineral bone disorder, monitor calcium and phosphorus levels. 5. Diabetic ketoacidosis. Continue current insulin regimen. 6. Right leg cellulitis. Continue antibiotic therapy. 7. Fracture of the tibia and fibula. Continue pain control. Follow up with orthopedist. Dictated By: JUJU JOHN/NTS Conf#: [id number] DID#: [id number] CC: VERITO GARCIA MD;*EndCC*
[2018-10-21] MEDS ORDERED: INSULIN GLARGINE [LANTus] (100 UNITS/ML) SYG SC SCH (10:00)
[2018-10-21] MEDS: CLONIDINE 0.3 MG/24 HR PATCH TRANSDERM SCH (10:19)
[2018-10-21] MEDS ORDERED: ONDANSETRON 4 MG INJ IV STA (10:28)
[2018-10-21] MEDS ORDERED: DIPHENHYDRAMINE 25 MG CAP PO PRN (10:30)
[2018-10-21] MEDS ORDERED: LABE200T7 PO (11:12)
[2018-10-21] MEDS ORDERED: CLON1PAT3 TD (11:12)
[2018-10-21] MEDS ORDERED: LANT3I SC (11:12)
[2018-10-21] MEDS ORDERED: SPIR100T4 PO (11:12)
[2018-10-21] MEDS ORDERED: CLON0.3T PO (11:12)
[2018-10-21] MEDS ORDERED: INSU100C SQ (11:12)
[2018-10-21] MEDS ORDERED: HYDR2TAB3 PO (11:12)
[2018-10-21] MEDS ORDERED: HYDR-3672 PO (11:12)
[2018-10-21] MEDS ORDERED: LORA0.5T PO (11:12)
[2018-10-21] MEDS ORDERED: PANT40TA4 PO (11:12)
[2018-10-21] MEDS ORDERED: LOPE2CAP PO (11:12)
[2018-10-21] MEDS ORDERED: CALC300T4 PO (11:12)
[2018-10-21] MEDS ORDERED: HYDROmorphONE 0.5 MG/0.5 ML SYG IV PRN (11:30)
[2018-10-21] MEDS: HEPARIN 1000 UNITS/ML 10 ML INJ CATHETER SCH (11:50)
[2018-10-21] MEDS ORDERED: SPIRONOLACTONE 50 MG TAB PO SCH (14:00)
[2018-10-21] MEDS: LABETALOL 200 MG TAB PO SCH ×2 (14:00→21:00)
[2018-10-21] MEDS: PANTOPRAZOLE (EC) 40 MG TAB PO SCH ×2 (14:00→21:00)
[2018-10-21] MEDS ORDERED: ONDANSETRON 4 MG INJ IV PRN (14:00)
[2018-10-21] MEDS ORDERED: HYDROmorphONE 2 MG TAB PO PRN (14:00)
--- NOTE | 2018-10-21 14:10 | PN ---
Date/Time of Note Date/Time of Note DATE: 10/21/18 TIME: 14:00 Assessment/Plan VTE Prophylaxis Risk score (from Nsg)>0 risk: 6 SCD applied (from Nsg): No SCD contraindicated: other Pharmacological prophylaxis: heparin Lines/Catheters IV Catheter Type (from Nrsg): HD ACCESS Urinary Cath still in place: No Assessment/Plan Hospital Course S: Patient having some possible pain and nausea this morning. Could not complete dialysis today although it was initiated. O: VS -see below PE: General: lying in bed, emotionally labile possibly secondary to pain versus drug-seeking behavior, legally blind HEENT: Atraumatic, normocephalic. Moist mucous membranes, clear oropharynx Neck: Supple with full range of motion. No rigidity or meningismus Chest: Right Tremayne cath Lungs: Clear to auscultation bilaterally no crackles rales or wheezing Heart: Normal S1-S2, Regular rhythm and rate. No murmur, S3, or S4 Abdomen: Soft , nontender, nondistended , bowel sounds are present. No guarding no rebound tenderness Extremities: Right lower extremity significant discoloration of the anterior rose, warm to touch, distal pulses palpable, no cyanosis noted Neurologic: No focal deficits Assessment/Plan: 28 yo woman with type I diabetes, ESRD on MWF dialysis, diabetic gastroparesis and multiple allergies presents with R tib/fib fracture. #Type I diabetes-sugars have been improved now, endocrinology team on the case. At home was on lantus 10, lispro 5-15 sliding scale- Initially was admitted for "DKA" with gap of 20 and glucose 400s after fluid resuscitation. -Continue current insulin regimen, monitor sugars, follow endocrinology recommendations #Diabetic gastroparesis- The patient reports several weeks of nausea and PO intolerance attributed to diabetic gastroparesis- She reports lip swelling and hives in reaction to metoclopramide. -Monitor, Will continue small frequent meals. -We will increase antiemetic dose and frequency. -Consider erythromycin as well? # HTN urgency: Patient's home medicines have been entered in the computer now which include many antihypertensive p.o. medications -We will resume the home labetalol, clonidine, and other home p.o. medications -Continue hydralazine as needed IV #ESRD- Patient is anuric- Last dialysis was Sunday, the day prior to admission. - Dr. Spear consulted for routine dialysis. #Right tib/fib fracture-orthopedics Dr. Babcock consulted. Need to get blood sugar and electrolytes under control before medically optimized for surgery. -For now keep limb immobile. -Of note, on admission she was started on broad spectrum antibiotics for "cellulitis", although there is a small ulcer and a large ecchymosis: Will cont inue antibiotics until culture results return, low threshold to discontinue. -Also consider pain management consult #Mid back pain- Associated with fall, also with palpable tenderness and slight deformity of spine- No peripheral neuro findings concerning for cord compression or cauda equina -Monitor, follow-up results of CT T+L spine. - Also consider pain management consult DVT: None GI: PPI Result Diagram: 10/21/18 0452 10/21/18 0452 Results 24hrs Laboratory Tests Test 10/20/18 15:33 10/20/18 17:13 10/20/18 17:29 10/20/18 17:44 Sodium Level 139 Potassium Level 5.1 Chloride Level 100 Carbon Dioxide Level 22 Anion Gap 17 H Blood Urea Nitrogen 76 H Creatinine 9.36 #H Est Glomerular 5 L Filtrat Rate mL/min Glucose Level 111 # Calcium Level 8.9 Phosphorus Level 8.2 H Magnesium Level 2.4 Bedside Glucose 42 *L 37 *L 106 Test 10/20/18 18:10 10/20/18 20:42 10/21/18 02:27 10/21/18 04:46 Bedside Glucose 187 211 168 Hepatitis B Surface NEGATIVE Antigen Hepatitis B Surface POSITIVE H Antibody Test 10/21/18 04:52 10/21/18 08:43 10/21/18 12:56 White Blood Count 7.3 # Red Blood Count 2.49 L Hemoglobin 7.6 L Hematocrit 23.1 L Mean Corpuscular 92.8 Volume Mean Corpuscular 30.5 Hemoglobin Mean Corpuscular 32.9 Hemoglobin Concent Red Cell 15.4 H Distribution Width Platelet Count 177 # Mean Platelet Volume 11.1 H Immature 0.300 Granulocytes % Neutrophils % 73.8 Lymphocytes % 8.0 L Monocytes % 12.4 H Eosinophils % 4.8 Basophils % 0.7 Nucleated Red Blood 0.0 Cells % Immature 0.020 Granulocytes # Neutrophils # 5.4 Lymphocytes # 0.6 L Monocytes # 0.9 Eosinophils # 0.4 Basophils # 0.1 Nucleated Red Blood 0.0 Cells # Sodium Level 138 Potassium Level 5.5 H Chloride Level 97 Carbon Dioxide Level 19 L Anion Gap 22 H Blood Urea Nitrogen 80 H Creatinine 9.47 H Est Glomerular 5 L Filtrat Rate mL/min Glucose Level 166 Calcium Level 8.8 Bedside Glucose 321 H 126 Exam/Review of Systems Exam Vitals Vital Signs Date Temp Pulse Resp B/P (MAP) Pulse Ox O2 O2 Flow FiO2 Time Delivery Rate 10/21/18 243/112 13:33 (155) 10/21/18 98.2 105 16 100 Nasal 12:59 Cannula 10/21/18 2.0 09:45 10/21/18 27 05:10 Intake and Output 10/20/18 10/20/18 10/21/18 1414:59 22:59 06:59 IntakeIntake Total 251.2 ml 470 ml 0 ml BalanceBalance 251.2 ml 470 ml 0 ml Results Results 24hrs Laboratory Tests Test 10/20/18 15:33 10/20/18 17:13 10/20/18 17:29 10/20/18 17:44 Sodium Level 139 Potassium Level 5.1 Chloride Level 100 Carbon Dioxide Level 22 Anion Gap 17 H Blood Urea Nitrogen 76 H Creatinine 9.36 #H Est Glomerular 5 L Filtrat Rate mL/min Glucose Level 111 # Calcium Level 8.9 Phosphorus Level 8.2 H Magnesium Level 2.4 Bedside Glucose 42 *L 37 *L 106 Test 10/20/18 18:10 10/20/18 20:42 10/21/18 02:27 10/21/18 04:46 Bedside Glucose 187 211 168 Hepatitis B Surface NEGATIVE Antigen Hepatitis B Surface POSITIVE H Antibody Test 10/21/18 04:52 10/21/18 08:43 10/21/18 12:56 White Blood Count 7.3 # Red Blood Count 2.49 L Hemoglobin 7.6 L Hematocrit 23.1 L Mean Corpuscular 92.8 Volume Mean Corpuscular 30.5 Hemoglobin Mean Corpuscular 32.9 Hemoglobin Concent Red Cell 15.4 H Distribution Width Platelet Count 177 # Mean Platelet Volume 11.1 H Immature 0.300 Granulocytes % Neutrophils % 73.8 Lymphocytes % 8.0 L Monocytes % 12.4 H Eosinophils % 4.8 Basophils % 0.7 Nucleated Red Blood 0.0 Cells % Immature 0.020 Granulocytes # Neutrophils # 5.4 Lymphocytes # 0.6 L Monocytes # 0.9 Eosinophils # 0.4 Basophils # 0.1 Nucleated Red Blood 0.0 Cells # Sodium Level 138 Potassium Level 5.5 H Chloride Level 97 Carbon Dioxide Level 19 L Anion Gap 22 H Blood Urea Nitrogen 80 H Creatinine 9.47 H Est Glomerular 5 L Filtrat Rate mL/min Glucose Level 166 Calcium Level 8.8 Bedside Glucose 321 H 126 Medications Medication Current Medications Miscellaneous Information (* Miscellaneous Pharmacy Order) HYPOGLYCEMIA TREATMENT HYPOGLYCEM PROTOCOL PRN XX .HYPOGLYCEMIA PROTOCOL; Start 10/20/18 at 00:00 Nitroglycerin (Nitroglycerin (Sl Tab) 0.4 Mg) 1 tab Q5M PRN SL CHEST PAIN Last administered on 10/20/18at 12:28; Admin Dose 1 TAB; Start 10/20/18 at 00:00 Acetaminophen (Tylenol Liquid) 650 mg Q6H PRN PO PAIN LEVEL 1-3 OR FEVER; Start 10/20/18 at 00:00 Docusate Sodium (Colace) 100 mg Q12H PRN PO CONSTIPATION; Start 10/20/18 at 00:00 Bisacodyl (Dulcolax) 5 mg DAILY PRN PO CONSTIPATION; Start 10/20/18 at 00:00 Pantoprazole (Protonix Iv) 40 mg DAILY@06 IV Last administered on 10/21/18at 06:07; Admin Dose 40 MG; Start 10/20/18 at 06:00 Vancomycin HCl (Vanco Iv Per Pharmacy) VANCOMYCIN PER PHARMACY PER PROTOCOL XX ; Start 10/20/18 at 01:30 Piperacillin Sod/ Tazobactam Sod 50 ml @ 100 mls/hr Q12 IVPB Last administered on 10/20/18at 20:45; Admin Dose 100 MLS/HR; Start 10/20/18 at 09:00 Acetaminophen/ Hydrocodone Bitart ([place] (5/325)) 1 tab Q4H PRN PO MODERATE PAIN LEVEL 4-6; Start 10/20/18 at 03:00 Clonidine HCl (Catapres-Tts 3 Patch) 2 patch Q7D TRANSDERM Last administered on 10/21/18at 10:19; Admin Dose 2 PATCH; Start 10/21/18 at 09:00 Diagnostic Test (Pha) (Accu-Chek) 1 ea XX Last administered on 10/21/18at 02:29; Admin Dose 1 EA; Start 10/21/18 at 02:00 Insulin Aspart (Novolog Insulin Pen) NOVOLOG *MILD* ALGORITHM WITH MEALS BEDTIME SC Last administered on 10/21/18at 09:00; Admin Dose 5 UNIT; Start 10/20/18 at 11:30 Miscellaneous Information 1 ea NOTE XX ; Start 10/20/18 at 10:30 Glucose (Glutose) 15 gm Q15M PRN PO DECREASED GLUCOSE; Start 10/20/18 at 10:30 Glucose (Glutose) 22.5 gm Q15M PRN PO DECREASED GLUCOSE Last administered on 10/20/18at 17:16; Admin Dose 22.5 GM; Start 10/20/18 at 10:30 Dextrose (D50w Syringe) 25 ml Q15M PRN IV DECREASED GLUCOSE Last administered on 10/20/18at 17:34; Admin Dose 25 ML; Start 10/20/18 at 10:30 Dextrose (D50w Syringe) 50 ml Q15M PRN IV DECREASED GLUCOSE; Start 10/20/18 at 10:30 Glucagon (Glucagen) 1 mg Q15M PRN IM DECREASED GLUCOSE; Start 10/20/18 at 10:30 Glucose (Glutose) 15 gm Q15M PRN BUCCAL DECREASED GLUCOSE; Start 10/20/18 at 10:30 Insulin Glargine (Lantus) 10 units DAILY@1000 SC Last administered on 10/21/18at 10:20; Admin Dose 10 UNITS; Start 10/21/18 at 10:00 Insulin Aspart (Novolog Insulin Pen) 5 unit WITH MEALS SC ; Start 10/21/18 at 07:35 Hydralazine HCl (Apresoline) 10 mg Q4H PRN IV sbp 170 Last administered on 10/21/18at 11:48; Admin Dose 10 MG; Start 10/20/18 at 23:30 Hydralazine HCl (Apresoline) 50 mg TID PO Last administered on 10/21/18at 06:06; Admin Dose 50 MG; Start 10/21/18 at 05:30 Heparin Sodium (Porcine) (Heparin (1000 Units/ml)) 3,700 unit AFTER DIALYSIS CATHETER Last administered on 10/21/18at 11:50; Admin Dose 3,700 UNIT; Start 10/21/18 at 08:00 Miscellaneous Information (*Rx Drug Level Order Reminder*) 1 0500 ONCE XX ; Start 10/22/18 at 05:00; Stop 10/22/18 at 05:01 Lorazepam (Ativan) 0.5 mg Q6H PRN IV anxiety Last administered on 10/21/18at 10:47; Admin Dose 0.5 MG; Start 10/21/18 at 10:30 Diphenhydramine HCl (Benadryl) 25 mg Q6H PRN PO ITCHING; Start 10/21/18 at 10:30 Levalbuterol (Xopenex Neb) 0.63 mg Q4H RESP THERAPY HHN ; Start 10/21/18 at 13:00 Trimethobenzamide HCl (Tigan) 200 mg Q6H PRN IM NAUSEA AND/OR VOMITING; Start 10/21/18 at 13:00 Calcium Carbonate (Tums Ex) 300 mg Q2H PRN PO GASTROINTESTINAL UPSET; Start 10/21/18 at 14:00; Status UNV Clonidine (Catapres) 0.4 mg BID PO ; Start 10/21/18 at 14:00; Status UNV Hydromorphone HCl (Dilaudid) 2 mg Q4 PRN PO PAIN; Start 10/21/18 at 14:00; St atus UNV Labetalol HCl (Normodyne) 1,200 mg BID PO ; Start 10/21/18 at 14:00; Status UNV Loperamide HCl (Imodium Cap) 2 mg TID PRN PO DIARRHEA; Start 10/21/18 at 14:00; Status UNV Pantoprazole (Protonix Tab) 40 mg BID PO ; Start 10/21/18 at 14:00; Status UNV Spironolactone (Aldactone) 25 mg BID PO ; Start 10/21/18 at 14:00; Status UNV Ondansetron HCl (Zofran Inj) 8 mg Q4 PRN IV NAUSEA AND/OR VOMITING; Start 10/21/18 at 14:00; Status UNV NAYAN WILLIS Oct 21, 2018 14:10
[2018-10-21] MEDS: LEVALBUTEROL (NEB) 0.63 MG/3 ML AMP HHN SCH ×3 (14:24→21:46)
--- NOTE | 2018-10-21 14:24 | CONS ---
Assessment/Plan Assessment/Plan Hospital Course (Demo Recall) Patient is alert does not feel well she is in no distress her blood pressure and was very high all morning with the latest one is 243/112. WBC 7.3 H&H 7.6 and 23.1 platelets 177 neutrophils 73.8 Indwelling: Right chest permacath Microbiology: Blood cultures negative since admission MRSA swab negative Chest x-ray on admission revealed no acute cardiopulmonary disease. Right lower extremity CT revealed soft tissue swelling surrounding community it slightly impacted fracture of the proximal meet DF pieces of the tibia and fibula. Knee joint fluid extending to the suprapatellar bursa Extremity venous study revealed no DVT of the right lower extremity Antimicrobials: Patient is on Zosyn and vancomycin Allergy: Clindamycin Physical examination: This is a chronically ill-appearing middle-aged woman who is alert in no distress. Head atraumatic normocephalic sclera nonic teric vehicle mucosa dry neck is supple chest rise symmetrical breath sounds diminished bases. Heart: S1-S2. Abdomen distended soft, bowel sounds present. Extremities with right lower extremity significant erythema edema and bruising Assessment: 1. Right lower extremity cellulitis/fracture 2. Uncontrolled hypertension 3. Diabetes 4. End-stage renal disease, hemodialysis dependent Plan: Patient is on appropriate antibiotics pending Orhto evaluation continue pain management and blood pressure management Consultation Date/Type/Reason Admit Date/Time Oct 19, 2018 at 23:42 Initial Consult Date Type of Consult id Date/Time of Note DATE: 10/21/18 TIME: 14:24 Exam/Review of Systems Exam Vitals Vital Signs Date Temp Pulse Resp B/P (MAP) Pulse Ox O2 O2 Flow FiO2 Time Delivery Rate 10/21/18 243/112 13:33 (155) 10/21/18 98.2 105 16 100 Nasal 12:59 Cannula 10/21/18 2.0 09:45 10/21/18 27 05:10 Intake and Output 10/20/18 10/20/18 10/21/18 1515:00 23:00 07:00 IntakeIntake Total 250.2 ml 470 ml 0 ml BalanceBalance 250.2 ml 470 ml 0 ml Results Result Diagram: 10/21/18 0452 10/21/18 0452 Results 24hrs Laboratory Tests Test 10/20/18 15:33 10/20/18 17:13 10/20/18 17:29 10/20/18 17:44 Sodium Level 139 Potassium Level 5.1 Chloride Level 100 Carbon Dioxide Level 22 Anion Gap 17 H Blood Urea Nitrogen 76 H Creatinine 9.36 #H Est Glomerular 5 L Filtrat Rate mL/min Glucose Level 111 # Calcium Level 8.9 Phosphorus Level 8.2 H Magnesium Level 2.4 Bedside Glucose 42 *L 37 *L 106 Test 10/20/18 18:10 10/20/18 20:42 10/21/18 02:27 10/21/18 04:46 Bedside Glucose 187 211 168 Hepatitis B Surface NEGATIVE Antigen Hepatitis B Surface POSITIVE H Antibody Test 10/21/18 04:52 10/21/18 08:43 10/21/18 12:56 White Blood Count 7.3 # Red Blood Count 2.49 L Hemoglobin 7.6 L Hematocrit 23.1 L Mean Corpuscular 92.8 Volume Mean Corpuscular 30.5 Hemoglobin Mean Corpuscular 32.9 Hemoglobin Concent Red Cell 15.4 H Distribution Width Platelet Count 177 # Mean Platelet Volume 11.1 H Immature 0.300 Granulocytes % Neutrophils % 73.8 Lymphocytes % 8.0 L Monocytes % 12.4 H Eosinophils % 4.8 Basophils % 0.7 Nucleated Red Blood 0.0 Cells % Immature 0.020 Granulocytes # Neutrophils # 5.4 Lymphocytes # 0.6 L Monocytes # 0.9 Eosinophils # 0.4 Basophils # 0.1 Nucleated Red Blood 0.0 Cells # Sodium Level 138 Potassium Level 5.5 H Chloride Level 97 Carbon Dioxide Level 19 L Anion Gap 22 H Blood Urea Nitrogen 80 H Creatinine 9.47 H Est Glomerular 5 L Filtrat Rate mL/min Glucose Level 166 Calcium Level 8.8 Bedside Glucose 321 H 126 Medications Medication Current Medications Miscellaneous Information (* Miscellaneous Pharmacy Order) HYPOGLYCEMIA TREATMENT HYPOGLYCEM PROTOCOL PRN XX .HYPOGLYCEMIA PROTOCOL; Start 10/20/18 at 00:00 Nitroglycerin (Nitroglycerin (Sl Tab) 0.4 Mg) 1 tab Q5M PRN SL CHEST PAIN Last administered on 10/20/18at 12:28; Admin Dose 1 TAB; Start 10/20/18 at 00:00 Acetaminophen (Tylenol Liquid) 650 mg Q6H PRN PO PAIN LEVEL 1-3 OR FEVER; Start 10/20/18 at 00:00 Docusate Sodium (Colace) 100 mg Q12H PRN PO CONSTIPATION; Start 10/20/18 at 00:00 Bisacodyl (Dulcolax) 5 mg DAILY PRN PO CONSTIPATION; Start 10/20/18 at 00:00 Vancomycin HCl (Vanco Iv Per Pharmacy) VANCOMYCIN PER PHARMACY PER PROTOCOL XX ; Start 10/20/18 at 01:30 Piperacillin Sod/ Tazobactam Sod 50 ml @ 100 mls/hr Q12 IVPB Last administered on 10/20/18at 20:45; Admin Dose 100 MLS/HR; Start 10/20/18 at 09:00 Acetaminophen/ Hydrocodone Bitart ([place] (5/325)) 1 tab Q4H PRN PO MODERATE PAIN LEVEL 4-6; Start 10/20/18 at 03:00 Clonidine HCl (Catapres-Tts 3 Patch) 2 patch Q7D TRANSDERM Last administered on 10/21/18at 10:19; Admin Dose 2 PATCH; Start 10/21/18 at 09:00 Diagnostic Test (Pha) (Accu-Chek) 1 ea 02 XX Last administered on 10/21/18at 02:29; Admin Dose 1 EA; Start 10/21/18 at 02:00 Insulin Aspart (Novolog Insulin Pen) NOVOLOG *MILD* ALGORITHM WITH MEALS BEDTIME SC Last administered on 10/21/18at 09:00; Admin Dose 5 UNIT; Start 10/20/18 at 11:30 Miscellaneous Information 1 ea NOTE XX ; Start 10/20/18 at 10:30 Glucose (Glutose) 15 gm Q15M PRN PO DECREASED GLUCOSE; Start 10/20/18 at 10:30 Glucose (Glutose) 22.5 gm Q15M PRN PO DECREASED GLUCOSE Last administered on 10/20/18at 17:16; Admin Dose 22.5 GM; Start 10/20/18 at 10:30 Dextrose (D50w Syringe) 25 ml Q15M PRN IV DECREASED GLUCOSE Last administered on 10/20/18at 17:34; Admin Dose 25 ML; Start 10/20/18 at 10:30 Dextrose (D50w Syringe) 50 ml Q15M PRN IV DECREASED GLUCOSE; Start 10/20/18 at 10:30 Glucagon (Glucagen) 1 mg Q15M PRN IM DECREASED GLUCOSE; Start 10/20/18 at 10:30 Glucose (Glutose) 15 gm Q15M PRN BUCCAL DECREASED GLUCOSE; Start 10/20/18 at 10:30 Insulin Glargine (Lantus) 10 units DAILY@1000 SC Last administered on 10/21/18at 10:20; Admin Dose 10 UNITS; Start 10/21/18 at 10:00 Insulin Aspart (Novolog Insulin Pen) 5 unit WITH MEALS SC ; Start 10/21/18 at 07:35 Hydralazine HCl (Apresoline) 10 mg Q4H PRN IV sbp 170 Last administered on 10/21at 11:48; Admin Dose 10 MG; Start 10/20/18 at 23:30 Hydralazine HCl (Apresoline) 50 mg TID PO Last administered on 10/21/18at 06:06; Admin Dose 50 MG; Start 10/21/18 at 05:30 Heparin Sodium (Porcine) (Heparin (1000 Units/ml)) 3,700 unit AFTER DIALYSIS CATHETER Last administered on 10/21/18at 11:50; Admin Dose 3,700 UNIT; Start 10/21/18 at 08:00 Miscellaneous Information (*Rx Drug Level Order Reminder*) 1 0500 ONCE XX ; Start 10/22/18 at 05:00; Stop 10/22/18 at 05:01 Lorazepam (Ativan) 0.5 mg Q6H PRN IV anxiety Last administered on 10/21/18at 10:47; Admin Dose 0.5 MG; Start 10/21/18 at 10:30 Diphenhydramine HCl (Benadryl) 25 mg Q6H PRN PO ITCHING; Start 10/21/18 at 10:30 Levalbuterol (Xopenex Neb) 0.63 mg Q4H RESP THERAPY HHN ; Start 10/21/18 at 13:00 Trimethobenzamide HCl (Tigan) 200 mg Q6H PRN IM NAUSEA AND/OR VOMITING; Start 10/21/18 at 13:00 Calcium Carbonate (Tums Ex) 300 mg Q2H PRN PO GASTROINTESTINAL UPSET; Start 10/21/18 at 14:00; Status UNV Clonidine (Catapres) 0.4 mg BID PO ; Start 10/21/18 at 14:00 Hydromorphone HCl (Dilaudid) 2 mg Q4H PRN PO PAIN; Start 10/21/18 at 14:00 Labetalol HCl (Normodyne) 1,200 mg BID PO ; Start 10/21/18 at 14:00 Loperamide HCl (Imodium Cap) 2 mg TID PRN PO DIARRHEA; Start 10/21/18 at 14:00 Pantoprazole (Protonix Tab) 40 mg BID PO ; Start 10/21/18 at 14:00 Spironolactone (Aldactone) 25 mg BID PO ; Start 10/21/18 at 21:00 Ondansetron HCl 8 mg/Sodium Chloride 54 ml @ 216 mls/hr Q4H PRN IV NAUSEA AND/OR VOMITING; Start 10/21/18 at 14:30 RORY CRUM NP Oct 21, 2018 14:24
[2018-10-21] MEDS ORDERED: CA CARBONATE (250 MG/ML) 5ML CUP PO PRN (15:00)
[2018-10-21] MEDS: PIPER-TAZO 2.25 GM (PMX) 50 ML IVPB SCH ×2 (15:41→20:48)
[2018-10-21] MEDS: HYDROmorphONE 0.5 MG/0.5 ML SYG IV PRN ×3 (16:04→23:34)
[2018-10-21] MEDS: ONDANSETRON INJ 8 MG in SOD CHLORIDE 0.9% 50 ML IV PRN ×2 (17:14→22:03)
[2018-10-21] MEDS: niCARdipine-NS 0.1MG/ML DRIP 200 ML IV SCH ×2 (18:14→19:44)
[2018-10-21] MEDS: TRIMETHOBENZAMIDE 100 MG/ML VIAL IM PRN (18:21)
--- NOTE | 2018-10-21 18:26 | CONS ---
Assessment/Plan Assessment/Plan Problems: (1) Type 2 diabetes mellitus with diabetic chronic kidney disease Status: Chronic Comment: Pt. currently receiving her home dosage of lantus at 10 units per day but w/ this not tolerating mealtime insulin which is causing hypoglycemia. Now only on lantus and ISS but this will result in hyperglycemia intermittent. Will decrease lantus to 7 units qam, start routine Novolog 2 units qac, and change Novolog ISS to a weak scale of 1 unit:70 mg/dL starting above 180 mg/dL. Will follow and attempt to titrate insulin doses to glycemic goals but this is a challenging case. 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 Chronic kidney disease stage: on chronic dialysis Qualified Codes: E11.22 - Type 2 diabetes mellitus with diabetic chronic kidney disease; N18.6 - End stage renal disease; Z79.4 - prison (current) use of insulin; Z99.2 - Dependence on renal dialysis Consultation Date/Type/Reason Admit Date/Time Oct 19, 2018 at 23:42 Initial Consult Date 10/20/2018 Type of Consult Endocrinology Reason for Consultation DKA Requesting Provider: VERITO GARCIA Date/Time of Note DATE: 10/21/18 TIME: 18:22 24 HR Interval Summary Constitutional: No no complaints, No improved Detailed Summary Respiratory: no complaints Cardiovascular: no complaints Gastrointestinal: pain, nausea Genitourinary: no complaints Musculoskeletal: bone/joint pain (RLE) Neurologic: no complaints Exam/Review of Systems Exam Vitals VS - Last 72 Hours, by Label Date Temp Pulse Resp B/P (MAP) Pulse Ox O2 O2 Flow FiO2 Time Delivery Rate 10/21/18 92 16 100 Nasal 2.0 17:24 Cannula 10/21/18 96 12 189/79 100 Nasal 17:00 (115) Cannula 10/21/18 95 16:00 10/21/18 98.8 92 15 208/93 100 Nasal 16:00 (131) Cannula 10/21/18 96 18 230/123 100 Nasal 15:00 (158) Cannula 10/21/18 243/112 13:33 (155) 10/21/18 98.2 105 16 256/121 100 Nasal 12:59 (166) Cannula 10/21/18 64 12:00 10/21/18 96 11:40 10/21/18 97 11:30 10/21/18 92 11:15 10/21/18 94 11:00 10/21/18 95 10:45 10/21/18 241/111 10:40 (154) 10/21/18 97 10:30 10/21/18 98 10:15 10/21/18 102 10:00 10/21/18 211/100 09:54 (137) 10/21/18 95 09:45 10/21/18 83 18 184/81 100 Nasal 2.0 09:45 (115) Cannula 10/21/18 90 09:30 10/21/18 91 09:15 10/21/18 Nasal 2.0 09:10 Cannula 10/21/18 86 16 100 Nasal 2.0 08:10 Cannula 10/21/18 100 2.0 08:10 10/21/18 98.5 76 18 182/88 95 08:02 (119) 10/21/18 125/60 06:02 (81) 10/21/18 100 2.0 05:16 10/21/18 84 16 100 Nasal 2.0 27 05:10 Cannula 10/21/18 98.7 83 18 184/81 100 Nasal 2.0 03:00 (115) Cannula 10/21/18 78 11 118/66 97 03:00 (83) 10/21/18 80 28 100 02:00 10/21/18 80 14 98 21 01:54 10/21/18 78 11 120/74 99 Room Air 01:00 (89) 10/21/18 97.6 80 10 109/84 95 Room Air 00:00 (92) 10/21/18 81 00:00 10/20/18 86 18 216/124 100 Room Air 23:00 (154) 10/20/18 84 21 186/95 100 Room Air 22:00 (125) 10/20/18 76 12 97 21:00 10/20/18 77 15 100 21 20:37 10/20/18 98.3 79 12 97 20:00 10/20/18 76 20:00 10/20/18 77 11 151/93 96 19:00 (112) 10/20/18 77 15 139/87 100 18:00 (104) 10/20/18 82 9 176/116 17:00 (136) 10/20/18 80 16:00 10/20/18 80 13 142/85 Room Air 16:00 (104) 10/20/18 80 12 140/84 94 15:00 (102) 10/20/18 88 17 95 21 14:02 10/20/18 81 14 161/97 94 14:00 (118) 10/20/18 81 14 132/83 92 13:00 (99) 10/20/18 85 17 94/79 (84) 98 Room Air 12:00 10/20/18 106 12:00 10/20/18 79 11 113/61 96 11:00 (78) 10/20/18 85 18 160/129 100 10:00 (139) 10/20/18 79 16 148/103 97 09:00 (118) 10/20/18 78 12 97 21 08:25 10/20/18 79 08:00 10/20/18 98.6 79 19 133/73 98 Room Air 08:00 (93) 10/20/18 80 14 181/109 100 07:00 (133) 10/20/18 79 16 159/105 98 06:00 (123) 10/20/18 80 14 174/89 95 05:00 (117) 10/20/18 80 16 99 21 04:42 10/20/18 80 04:00 10/20/18 98.6 80 13 138/54 98 04:00 (82) 10/20/18 81 152/73 03:20 (99) 10/20/18 21 02:45 10/20/18 98.8 80 16 159/85 96 Room Air 02:34 (109) 10/20/18 98.8 85 18 122/74 96 Room Air 01:45 (90) 10/20/18 98.8 77 20 129/65 96 Room Air 01:11 (86) 10/20/18 98.8 83 20 104/68 98 Room Air 00:46 (80) 10/19/18 98.8 81 20 154/80 98 Room Air 23:53 (104) 10/19/18 98.8 83 16 156/74 96 Room Air 22:15 (101) 10/19/18 98.8 80 20 157/97 98 Room Air 21:24 (117) 10/19/18 Nasal 21:19 Cannula 10/19/18 98.8 84 18 215/95 98 20:37 (135) Vital Signs Date Temp Pulse Resp B/P (MAP) Pulse Ox O2 O2 Flow FiO2 Time Delivery Rate 10/21/18 92 16 100 Nasal 2.0 17:24 Cannula 10/21/18 189/79 17:00 (115) 10/21/18 98.8 16:00 10/21/18 27 05:10 Intake and Output 10/20/18 10/20/18 10/21/18 1515:00 23:00 07:00 IntakeIntake Total 250.2 ml 470 ml 0 ml BalanceBalance 250.2 ml 470 ml 0 ml Constitutional: alert, oriented, frail Respiratory: clear to auscultation, normal air movement Cardiovascular: regular rate and rhythm, nl pulses; No edema, No murmurs/extra sounds, No rub Gastrointestinal: soft, nl liver, spleen, bowel sounds, tender (LUQ); No mass, No rebound or guarding Musculoskeletal: No nl extremities to inspection (RLE w/ bruising and redness) Extremities: No cyanosis, No clubbing, No edema 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, nl mental status, nl speech, nl strength Additional Comments Bedside Glucose - 72 Hours Test 10/20/18 01:27 10/20/18 02:32 10/20/18 04:35 10/20/18 05:11 Bedside 500 432 250 178 Glucose mg/dL (70-220) mg/dL (70-220) mg/dL (70-220) mg/dL (70-220) *H *H H Test 10/20/18 05:53 10/20/18 07:16 10/20/18 07:55 10/20/18 08:55 Bedside 122 72 71 62 Glucose mg/dL (70-220) mg/dL (70-220) mg/dL (70-220) mg/dL (70-220) L Test 10/20/18 09:23 10/20/18 11:40 10/20/18 12:23 10/20/18 13:06 Bedside 121 265 297 279 Glucose mg/dL (70-220) mg/dL (70-220) mg/dL (70-220) mg/dL (70-220) H H H Test 10/20/18 17:13 10/20/18 17:29 10/20/18 17:44 10/20/18 18:10 Bedside 42 37 106 187 Glucose mg/dL (70-220) mg/dL (70-220) mg/dL (70-220) mg/dL (70-220) *L *L Test 10/20/18 20:42 10/21/18 02:27 10/21/18 08:43 10/21/18 12:56 Bedside 211 168 321 126 Glucose mg/dL (70-220) mg/dL (70-220) mg/dL (70-220) mg/dL (70-220) H Test 10/21/18 18:13 Bedside 159 Glucose mg/dL (70-220) Results Result Diagram: 10/21/18 0452 10/21/18 0452 Results 24hrs Laboratory Tests Test 10/20/18 20:42 10/21/18 02:27 10/21/18 04:46 10/21/18 04:52 Bedside Glucose 211 168 Hepatitis B Surface NEGATIVE Antigen Hepatitis B Surface POSITIVE H Antibody White Blood Count 7.3 # Red Blood Count 2.49 L Hemoglobin 7.6 L Hematocrit 23.1 L Mean Corpuscular 92.8 Volume Mean Corpuscular 30.5 Hemoglobin Mean Corpuscular 32.9 Hemoglobin Concent Red Cell 15.4 H Distribution Width Platelet Count 177 # Mean Platelet Volume 11.1 H Immature 0.300 Granulocytes % Neutrophils % 73.8 Lymphocytes % 8.0 L Monocytes % 12.4 H Eosinophils % 4.8 Basophils % 0.7 Nucleated Red Blood 0.0 Cells % Immature 0.020 Granulocytes # Neutrophils # 5.4 Lymphocytes # 0.6 L Monocytes # 0.9 Eosinophils # 0.4 Basophils # 0.1 Nucleated Red Blood 0.0 Cells # Sodium Level 138 Potassium Level 5.5 H Chloride Level 97 Carbon Dioxide Level 19 L Anion Gap 22 H Blood Urea Nitrogen 80 H Creatinine 9.47 H Est Glomerular 5 L Filtrat Rate mL/min Glucose Level 166 Calcium Level 8.8 Test 10/21/18 08:43 10/21/18 12:56 10/21/18 18:13 Bedside Glucose 321 H 126 159 Medications Medication Current Medications Miscellaneous Information (* Miscellaneous Pharmacy Order) HYPOGLYCEMIA TREATMENT HYPOGLYCEM PROTOCOL PRN XX .HYPOGLYCEMIA PROTOCOL; Start 10/20/18 at 00:00 Nitroglycerin (Nitroglycerin (Sl Tab) 0.4 Mg) 1 tab Q5M PRN SL CHEST PAIN Last administered on 4/21/19at 12:28; Admin Dose 1 TAB; Start 10/20/18 at 00:00 Acetaminophen (Tylenol Liquid) 650 mg Q6H PRN PO PAIN LEVEL 1-3 OR FEVER; Start 10/20/18 at 00:00 Docusate Sodium (Colace) 100 mg Q12H PRN PO CONSTIPATION; Start 10/20/18 at 00:00 Bisacodyl (Dulcolax) 5 mg DAILY PRN PO CONSTIPATION; Start 10/20/18 at 00:00 Vancomycin HCl (Vanco Iv Per Pharmacy) VANCOMYCIN PER PHARMACY PER PROTOCOL XX ; Start 10/20/18 at 01:30 Piperacillin Sod/ Tazobactam Sod 50 ml @ 100 mls/hr Q12 IVPB Last administered on 10/21/18at 15:41; Admin Dose 100 MLS/HR; Start 10/20/18 at 09:00 Acetaminophen/ Hydrocodone Bitart (Hemet (5/325)) 1 tab Q4H PRN PO MODERATE PAIN LEVEL 4-6; Start 10/20/18 at 03:00 Clonidine HCl (Catapres-Tts 3 Patch) 2 patch Q7D TRANSDERM Last administered on 10/21/18at 10:19; Admin Dose 2 PATCH; Start 10/21/18 at 09:00 Diagnostic Test (Pha) (Accu-Chek) 1 ea 02 XX Last administered on 10/21/18at 02:29; Admin Dose 1 EA; Start 10/21/18 at 02:00 Insulin Aspart (Novolog Insulin Pen) NOVOLOG *MILD* ALGORITHM WITH MEALS BEDTIME SC Last administered on 10/21/18at 09:00; Admin Dose 5 UNIT; Start 10/20/18 at 11:30 Miscellaneous Information 1 ea NOTE XX ; Start 10/20/18 at 10:30 Glucose (Glutose) 15 gm Q15M PRN PO DECREASED GLUCOSE; Start 10/20/18 at 10:30 Glucose (Glutose) 22.5 gm Q15M PRN PO DECREASED GLUCOSE Last administered on 10/20/18at 17:16; Admin Dose 22.5 GM; Start 10/20/18 at 10:30 Dextrose (D50w Syringe) 25 ml Q15M PRN IV DECREASED GLUCOSE Last administered on 10/20/18at 17:34; Admin Dose 25 ML; Start 10/20/18 at 10:30 Dextrose (D50w Syringe) 50 ml Q15M PRN IV DECREASED GLUCOSE; Start 10/20/18 at 10:30 Glucagon (Glucagen) 1 mg Q15M PRN IM DECREASED GLUCOSE; Start 10/20/18 at 10:30 Glucose (Glutose) 15 gm Q15M PRN BUCCAL DECREASED GLUCOSE; Start 10/20/18 at 10:30 Insulin Glargine (Lantus) 10 units DAILY@1000 SC Last administered on 10/21/18at 10:20; Admin Dose 10 UNITS; Start 10/21/18 at 10:00 Hydralazine HCl (Apresoline) 10 mg Q4H PRN IV sbp 170 Last administered on 10/21/18at 15:41; Admin Dose 10 MG; Start 10/20/18 at 23:30 Hydralazine HCl (Apresoline) 50 mg TID PO Last administered on 10/21/18 06:06; Admin Dose 50 MG; Start 10/21/18 at 05:30 Heparin Sodium (Porcine) (Heparin (1000 Units/ml)) 3,700 unit AFTER DIALYSIS CATHETER Last administered on 10/21/18at 11:50; Admin Dose 3,700 UNIT; Start 10/21/18 at 08:00 Miscellaneous Information (*Rx Drug Level Order Reminder*) 1 0500 ONCE XX ; Start 10/22/18 at 05:00; Stop 10/22/18 at 05:01 Lorazepam (Ativan) 0.5 mg Q6H PRN IV anxiety Last administered on 10/21/18at 17:12; Admin Dose 0.5 MG; Start 10/21/18 at 10:30 Levalbuterol (Xopenex Neb) 0.63 mg Q4H RESP THERAPY HHN Last administered on 10/21/18at 17:24; Admin Dose 0.63 MG; Start 10/21/18 at 13:00 Trimethobenzamide HCl (Tigan) 200 mg Q6H PRN IM NAUSEA AND/OR VOMITING; Start 10/21/18 at 13:00 Calcium Carbonate (Ca Carbonate) 750 mg Q2H PRN PO GI; Start 10/21/18 at 15:00 Clonidine (Catapres) 0.4 mg BID PO ; Start 10/21/18 at 14:00 Hydromorphone HCl (Dilaudid) 2 mg Q4H PRN PO PAIN; Start 10/21/18 at 14:00 Labetalol HCl (Normodyne) 1,200 mg BID PO ; Start 10/21/18 at 14:00 Loperamide HCl (Imodium Cap) 2 mg TID PRN PO DIARRHEA; Start 10/21/18 at 14:00 Pantoprazole (Protonix Tab) 40 mg BID PO ; Start 10/21/18 at 14:00 Spironolactone (Aldactone) 25 mg BID PO ; Start 10/21/18 at 21:00 Ondansetron HCl 8 mg/Sodium Chloride 54 ml @ 216 mls/hr Q4H PRN IV NAUSEA AND/OR VOMITING Last administered on 10/21/18at 17:14; Admin Dose 216 MLS/HR; Start 10/21/18 at 14:30 Hydromorphone HCl (Dilaudid) 0.5 mg Q4H PRN IV SEVERE PAIN LEVEL 7-10 Last administered on 10/21/18at 16:04; Admin Dose 0.5 MG; Start 10/21/18 at 16:00 Nicardipine HCl 200 ml @ 50 mls/hr TITRATE IV ; Start 10/21/18 at 16:30 Insulin Aspart (Novolog Insulin Pen) 4 unit WITH MEALS SC ; Start 10/22/18 at 07:35 AYLEEN HOWARD MD Oct 21, 2018 18:26
--- NOTE | 2018-10-21 20:34 | CONS ---
DATE OF ADMISSION: 10/19/2018 DATE OF CONSULTATION: 10/21/2018 HISTORY OF PRESENT ILLNESS: The patient is a 28-year-old female with an end-stage kidney disease on dialysis, who was admitted on 10/19/2018 when she came to the emergency room complaining of pain and swelling involving her right lower extremity. Initial evaluation also revealed that she is a diabeti c ketoacidosis and she was placed in ICU. She obviously developed this painful swelling involving her right lower extremity about 5 days prior to my examination after twisting and possibly a ground-level fall involving her right lower extremity . She was initially seen at the [facility] and was treated with the immobilization o f the right ankle in an ankle immobilizer under the diagnostic impression of sprain of the right ankl e. PHYSICAL EXAMINATION: My examination revealed a 28-year-old female who was complaining of pain invol ving her right lower extremity. There was a diffuse ecchymosis involving the entire right lower extr emity below the level of the right knee. There was an acute tenderness over the proximal portion of the right leg without any obvious gross deformity. There does not seem to be any neurovascular compr omise with the weakly palpable dorsalis pedis and tibialis posterior. She was also able to move her toes. Range of motion of the ankle or knee could not be tested because of the pain. CT scan of the right leg was available for my review and it revealed the fracture involving the proxi mal shaft of the right tibia and fibula at the same level. DIAGNOSTIC IMPRESSION: Transverse fracture involving the proximal shaft of the right tibia and fibul a, in acceptable alignment. TREATMENT PLAN: Considering her overall conditions including end-stage renal disease and also becaus e of acceptable alignment of the fractures, conservative nonsurgical treatment should be tried first with the immobilization of the right lower extremity in a long leg brace with a dial lock at the knee joint. She should also avoid any weightbearing on the right lower extremity at least for her 4 week s. Recommended long leg brace with a dial lock has been ordered. We should also get regular x-rays of t he right leg, so we can have a baseline for repeated x-rays during the followup. Her fracture and th e treatment plan were discussed with the patient and the patient was acceptable for the treatment karuna n. She was informed that if the alignment or healing of the fracture is not satisfactory with the br saad, then we she may end up with a surgical treatment, namely open reduction and internal fixation of the fracture of the tibia. Dictated By: BLAYNE SEGAL/ALISON Conf#: [id number] DID#: [id number] CC: NAYAN WILLIS; VERITO GARCIA MD;*EndCC*
[2018-10-21] MEDS: niCARdipine 50 MG in SOD CHLORIDE 0.9% 480 ML IV SCH (20:49)
[2018-10-21] MEDS: SPIRONOLACTONE 25 MG TAB PO SCH (21:00)
[2018-10-21] MEDS: LABETALOL HCL 20MG INJ IV PRN (23:42)
[2018-10-22] VITALS (54 sets, daily range): BP systolic 94–174; BP diastolic 57–143; PULSE 83–99; RESP 12–29
[2018-10-22] MEDS: LEVALBUTEROL (NEB) 0.63 MG/3 ML AMP HHN SCH ×3 (01:00→08:24)
[2018-10-22] MEDS ORDERED: AL HYDROX/MG HYDROX/SIMETH 30 ML CUP PO PRN (01:30)
[2018-10-22] MEDS ORDERED: DEXAMETHASONE 4 MG/ML 1 ML INJ IV ONE (01:30)
[2018-10-22] MEDS: ACCU-CHEK XX SCH (02:00)
[2018-10-22] MEDS: niCARdipine 50 MG in SOD CHLORIDE 0.9% 480 ML IV SCH (02:23)
[2018-10-22] MEDS: HYDROmorphONE 0.5 MG/0.5 ML SYG IV PRN ×5 (03:19→18:47)
[2018-10-22] MEDS: LORAZEPAM 2 MG INJ IV PRN ×5 (04:36→20:55)
[2018-10-22] MEDS ORDERED: INSULIN ASPART [NOVOLOG] 3 ML PEN SC SCH (07:35)
[2018-10-22] MEDS: INSULIN ASPART [NOVOLOG] 3 ML PEN SC SCH ×7 (08:07→20:41)
--- NOTE | 2018-10-22 08:22 | PN ---
DATE: 10/22/2018 SUBJECTIVE: The patient was transferred from telemetry to intensive care unit. The patient was plac ed on a Cardene drip. Overnight, the patient's drip was weaned off with IV labetalol. The patient i s actively withdrawing from opiates. No other events noted. OBJECTIVE: VITAL SIGNS: Blood pressure is 144/75, pulse 91, respirations 18, temperature 98.1. HEENT: Head is normocephalic. NECK: Supple. HEART: Regular rate. LUNGS: Show diminished breath sounds at the base. ABDOMEN: Soft, nontender to palpation without rebound or guarding. EXTREMITIES: Negative for clubbing, cyanosis. Positive edema, positive ecchymoses. NEUROLOGIC: No change in exam. MEDICATIONS: Reviewed. LABORATORY DATA: From 10/22/18 has been reviewed. IMAGING STUDIES: Reviewed. ASSESSMENT AND PLAN: 1. End-stage renal disease. The patient had hemodialysis yesterday, tolerated well. Plan is for di alysis again tomorrow. 2. Hypertensive urgency. The patient is currently off Cardene drip. Continue IV labetalol. Contin ue to treat underlying withdrawal. 3. Anemia. Continue to monitor hemoglobin and hematocrit levels. We will continue Epogen with hemo dialysis. 4. Mineral bone disorder, monitor calcium and phosphorus levels. 5. Opiate withdrawal. Continue supportive care. Follow up with pain management. 6. Hyperkalemia, resolved. 7. Right tibiofibular fracture. The patient was seen by orthopedist. Plan is for conservative care . 8. Cellulitis. Continue diuretic therapy. 9. Diabetes. Continue current insulin regimen. Dictated By: JUJU MARTINEZ DO NR/NTS Conf#: [id number] DID#: [id number] CC: BLAYNE BLANTON MD; NAYAN WILLIS; VERITO GARCIA MD;*EndCC*
[2018-10-22] MEDS: PIPER-TAZO 2.25 GM (PMX) 50 ML IVPB SCH ×2 (08:37→20:55)
[2018-10-22] MEDS: SPIRONOLACTONE 25 MG TAB PO SCH ×2 (08:51→20:29)
[2018-10-22] MEDS: PANTOPRAZOLE (EC) 40 MG TAB PO SCH (08:52)
[2018-10-22] MEDS: LABETALOL 200 MG TAB PO SCH ×2 (08:52→20:29)
[2018-10-22] MEDS ORDERED: FAMOTIDINE 20 MG INJ IV SCH (09:00)
[2018-10-22] MEDS ORDERED: AMLODIPINE 10 MG TAB PO SCH (09:00)
[2018-10-22] MEDS ORDERED: LINAGLIPTIN 5 MG TABLET PO SCH (09:00)
[2018-10-22] MEDS: ONDANSETRON INJ 8 MG in SOD CHLORIDE 0.9% 50 ML IV PRN (09:20)
[2018-10-22] MEDS: INSULIN GLARGINE [LANTus] (100 UNITS/ML) SYG SC SCH (10:34)
--- NOTE | 2018-10-22 10:44 | PN ---
Date/Time of Note Date/Time of Note DATE: 10/22/18 TIME: 10:36 Assessment/Plan VTE Prophylaxis Risk score (from Ns)>0 risk: 8 SCD applied (from Ns): No SCD contraindicated: other Pharmacological prophylaxis: heparin Lines/Catheters [facility] Urinary Cath still in place: No Assessment/Plan Hospital Course S: Patient refused speech therapy yesterday, but seen by pain management, orthopedic surgery, and renal teams this morning. Blood pressure improved after patient was started on nicardipine drip yesterday's secondary to systolic blood pressure in the 222 - 240 range yesterday. Off of nicardipine drip now. Still with nausea symptoms, had to get NG tube inserted yesterday evening with significant output initially including some bloody material gastric contents. Now this is cleared up and output is less now. Again could not complete full session of hemodialysis yesterday. O: VS -see below PE: General: lying in bed, NG tube in place, slightly lethargic, legally blind HEENT: Atraumatic, normocephalic. Moist mucous membranes, clear oropharynx Neck: Supple with full range of motion. No rigidity or meningismus Chest: Right Gisela cath Lungs: Clear to auscultation bilaterally no crackles rales or wheezing Heart: Normal S1-S2, Regular rhythm and rate. No murmur, S3, or S4 Abdomen: Soft , nontender, nondistended , bowel sounds are present. No guarding no rebound tenderness Extremities: Right lower extremity significant discoloration of the anterior rose, warm to touch, distal pulses palpable, no cyanosis noted Neurologic: No focal deficits Assessment/Plan: 28 yo woman with type I diabetes, ESRD on MWF dialysis, diabetic gastroparesis and multiple allergies presents with R tib/fib fracture. #Type I diabetes-sugars have been improved now, endocrinology team on the case. At home was on lantus 10, lispro 5-15 sliding scale- Initially was admitted for "DKA" with gap of 20 and glucose 400s after fluid resuscitation. -Continue current insulin regimen, monitor sugars, follow endocrinology recommendations #Nausea/vomiting: Still present despite being on Tigan and higher doses of Zofran, likely secondary to opiate withdrawal versus diabetic gastroparesis- The patient reports several weeks of nausea and PO intolerance attributed to diabetic gastroparesis- She reports lip swelling and hives in reaction to metoclopramide. -Monitor, n.p.o. except meds for now, we will try to reinitiate speech therapy consult again today -For now continue NG tube, patient again likely has signs of opiate withdrawal versus ileus/constipation from significant opiate use, also considering diabetic gastroparesis as well. Will consider GI consult as well. -Continue Zofran and Tigan antiemetics. -Consider erythromycin as well? # HTN urgency: Patient's home medicines have been entered in the computer now which include many antihypertensive p.o. medications -Continue home labetalol, clonidine, and other home p.o. medications -althou gh again patient not taking this morning secondary to significant nausea apparently. -Continue hydralazine as needed IV #ESRD- Patient is anuric-again could not get full session of dialysis yesterday secondary to significant nausea symptoms. - Dr. Spear consulted for routine dialysis -they will attempt again tomorrow #Right tib/fib fracture-orthopedics Dr. Babcock consulted -recommended for long leg brace with a dial lock - has been ordered. -For now keep limb immobile-waiting for the leg brace to arrive -Of note, on admission she was started on broad spectrum antibiotics for "cellulitis", although there is a small ulcer and a large ecchymosis: Will co ntinue antibiotics until culture results return, low threshold to discontinue. #Mid back pain- Associated with fall, also with palpable tenderness and slight deformity of spine- No peripheral neuro findings concerning for cord compression or cauda equina -Monitor, follow-up results of CT T+L spine. -Follow-up further recommendations from pain management consult DVT: None GI: PPI IV twice daily Critical care time spent on patient care today equals 55 minutes. Result Diagram: 10/22/18 0436 10/22/18 0436 Results 24hrs Laboratory Tests Test 10/21/18 12:56 10/21/18 18:13 10/21/18 21:42 10/22/18 04:36 Bedside Glucose 126 159 176 White Blood Count 11.8 #H Red Blood Count 2.49 L Hemoglobin 7.6 L Hematocrit 24.1 L Mean Corpuscular 96.8 Volume Mean Corpuscular 30.5 Hemoglobin Mean Corpuscular 31.5 L Hemoglobin Concent Red Cell 15.7 H Distribution Width Platelet Count 200 Mean Platelet Volume 10.9 H Immature 0.300 Granulocytes % Neutrophils % 90.5 H Lymphocytes % 2.4 L Monocytes % 5.1 Eosinophils % 1.1 Basophils % 0.6 Nucleated Red Blood 0.0 Cells % Immature 0.030 Granulocytes # Neutrophils # 10.6 H Lymphocytes # 0.3 L Monocytes # 0.6 Eosinophils # 0.1 Basophils # 0.1 Nucleated Red Blood 0.0 Cells # Sodium Level 143 Potassium Level 4.7 Chloride Level 100 Carbon Dioxide Level 15 L Anion Gap 28 H Blood Urea Nitrogen 42 #H Creatinine 7.09 #H Est Glomerular 7 L Filtrat Rate mL/min Glucose Level 269 #H Calcium Level 9.7 Phosphorus Level 8.0 H Magnesium Level 2.5 Random Vancomycin 16.5 Level Test 10/22/18 08:04 Bedside Glucose 317 H Exam/Review of Systems Exam Vitals Vital Signs Date Temp Pulse Resp B/P (MAP) Pulse Ox O2 O2 Flow FiO2 Time Delivery Rate 10/22/18 89 21 137/70 99 Room Air 09:30 (92) 10/22/18 21 08:28 10/22/18 98.1 07:00 10/22/18 3.0 02:50 Intake and Output 10/21/18 10/21/18 10/22/18 1515:00 23:00 07:00 IntakeIntake Total 120 ml 1043 ml 510 ml OutputOutput Total 850 ml 100 ml 600 ml BalanceBalance -730 ml 943 ml -90 ml Results Results 24hrs Laboratory Tests Test 10/21/18 12:56 10/21/18 18:13 10/21/18 21:42 10/22/18 04:36 Bedside Glucose 126 159 176 White Blood Count 11.8 #H Red Blood Count 2.49 L Hemoglobin 7.6 L Hematocrit 24.1 L Mean Corpuscular 96.8 Volume Mean Corpuscular 30.5 Hemoglobin Mean Corpuscular 31.5 L Hemoglobin Concent Red Cell 15.7 H Distribution Width Platelet Count 200 Mean Platelet Volume 10.9 H Immature 0.300 Granulocytes % Neutrophils % 90.5 H Lymphocytes % 2.4 L Monocytes % 5.1 Eosinophils % 1.1 Basophils % 0.6 Nucleated Red Blood 0.0 Cells % Immature 0.030 Granulocytes # Neutrophils # 10.6 H Lymphocytes # 0.3 L Monocytes # 0.6 Eosinophils # 0.1 Basophils # 0.1 Nucleated Red Blood 0.0 Cells # Sodium Level 143 Potassium Level 4.7 Chloride Level 100 Carbon Dioxide Level 15 L Anion Gap 28 H Blood Urea Nitrogen 42 #H Creatinine 7.09 #H Est Glomerular 7 L Filtrat Rate mL/min Glucose Level 269 #H Calcium Level 9.7 Phosphorus Level 8.0 H Magnesium Level 2.5 Random Vancomycin 16.5 Level Test 10/22/18 08:04 Bedside Glucose 317 H Medications Medication Current Medications Miscellaneous Information (* Miscellaneous Pharmacy Order) HYPOGLYCEMIA TREATMENT HYPOGLYCEM PROTOCOL PRN XX .HYPOGLYCEMIA PROTOCOL; Start 10/20/18 at 00:00 Nitroglycerin (Nitroglycerin (Sl Tab) 0.4 Mg) 1 tab Q5M PRN SL CHEST PAIN Last administered on 10/20/18at 12:28; Admin Dose 1 TAB; Start 10/20/18 at 00:00 Acetaminophen (Tylenol Liquid) 650 mg Q6H PRN PO PAIN LEVEL 1-3 OR FEVER; Start 10/20/18 at 00:00 Docusate Sodium (Colace) 100 mg Q12H PRN PO CONSTIPATION; Start 10/20/18 at 00:00 Bisacodyl (Dulcolax) 5 mg DAILY PRN PO CONSTIPATION; Start 10/20/18 at 00:00 Vancomycin HCl (Vanco Iv Per Pharmacy) VANCOMYCIN PER PHARMACY PER PROTOCOL XX ; Start 10/20/18 at 01:30 Piperacillin Sod/ Tazobactam Sod 50 ml @ 100 mls/hr Q12 IVPB Last administered on 10/22/18at 08:37; Admin Dose 100 MLS/HR; Start 10/20/18 at 09:00 Acetaminophen/ Hydrocodone Bitart ([place] (5/325)) 1 tab Q4H PRN PO MODERATE PAIN LEVEL 4-6; Start 10/20/18 at 03:00 Clonidine HCl (Catapres-Tts 3 Patch) 2 patch Q7D TRANSDERM Last administered on 10/21/18at 10:19; Admin Dose 2 PATCH; Start 10/21/18 at 09:00 Diagnostic Test (Pha) (Accu-Chek) 1 ea 02 XX Last administered on 10/21/18at 02:29; Admin Dose 1 EA; Start 10/21/18 at 02:00 Miscellaneous Information 1 ea NOTE XX ; Start 10/20/18 at 10:30 Glucose (Glutose) 15 gm Q15M PRN PO DECREASED GLUCOSE; Start 10/20/18 at 10:30 Glucose (Glutose) 22.5 gm Q15M PRN PO DECREASED GLUCOSE Last administered on 10/20/18at 17:16; Admin Dose 22.5 GM; Start 10/20/18 at 10:30 Dextrose (D50w Syringe) 25 ml Q15M PRN IV DECREASED GLUCOSE Last administered on 10/20/18at 17:34; Admin Dose 25 ML; Start 10/20/18 at 10:30 Dextrose (D50w Syringe) 50 ml Q15M PRN IV DECREASED GLUCOSE; Start 10/20/18 at 10:30 Glucagon (Glucagen) 1 mg Q15M PRN IM DECREASED GLUCOSE; Start 10/20/18 at 10:30 Glucose (Glutose) 15 gm Q15M PRN BUCCAL DECREASED GLUCOSE; Start 10/20/18 at 10:30 Hydralazine HCl (Apresoline) 10 mg Q4H PRN IV sbp 170 Last administered on 10/21/18at 15:41; Admin Dose 10 MG; Start 10/20/18 at 23:30 Hydralazine HCl (Apresoline) 50 mg TID PO Last administered on 10/21/18at 06:06; Admin Dose 50 MG; Start 10/21/18 at 05:30 Heparin Sodium (Porcine) (Heparin (1000 Units/ml)) 3,700 unit AFTER DIALYSIS CATHETER Last administered on 10/21/18at 11:50; Admin Dose 3,700 UNIT; Start 10/21/18 at 08:00 Levalbuterol (Xopenex Neb) 0.63 mg Q4H RESP THERAPY HHN Last administered on 10/22/18 08:24; Admin Dose 0.63 MG; Start 10/21/18 at 13:00 Trimethobenzamide HCl (Tigan) 200 mg Q6H PRN IM NAUSEA AND/OR VOMITING Last administered on 10/21/18at 18:21; Admin Dose 200 MG; Start 10/21/18 at 13:00 Calcium Carbonate (Ca Carbonate) 750 mg Q2H PRN PO GI; Start 10/21/18 at 15:00 Clonidine (Catapres) 0.4 mg BID PO ; Start 10/21/18 at 14:00 Hydromorphone HCl (Dilaudid) 2 mg Q4H PRN PO PAIN; Start 10/21/18 at 14:00 Labetalol HCl (Normodyne) 1,200 mg BID PO ; Start 10/21/18 at 14:00 Loperamide HCl (Imodium Cap) 2 mg TID PRN PO DIARRHEA; Start 10/21/18 at 14:00 Pantoprazole (Protonix Tab) 40 mg BID PO ; Start 10/21/18 at 14:00 Spironolactone (Aldactone) 25 mg BID PO ; Start 10/21/18 at 21:00 Ondansetron HCl 8 mg/Sodium Chloride 54 ml @ 216 mls/hr Q4H PRN IV NAUSEA AND/OR VOMITING Last administered on 10/22/18 09:20; Admin Dose 216 MLS/HR; Start 10/21/18 at 14:30 Hydromorphone HCl (Dilaudid) 0.5 mg Q4H PRN IV SEVERE PAIN LEVEL 7-10 Last administered on 10/22/18at 06:56; Admin Dose 0.5 MG; Start 10/21/18 at 16:00 Insulin Aspart (Novolog Insulin Pen) 2 unit WITH MEALS SC Last administered on 10/22/18 08:08; Admin Dose 2 UNIT; Start 10/22/18 at 07:35 Insulin Glargine (Lantus) 7 units DAILY@1000 SC ; Start 10/22/18 at 10:00 Insulin Aspart (Novolog Insulin Pen) NOVOLOG *CUSTOM* ALGORITHM AC MEALS AND BE DTIME SC Last administered on 10/22/18 08:07; Admin Dose 2 UNIT; Start 10/21/18 at 21:00 Nicardipine HCl 50 mg/Sodium Chloride 500 ml @ 50 mls/hr TITRATE IV Last administered on 10/22/18 02:23; Admin Dose 60 MLS/HR; Start 10/21/18 at 21:00 Labetalol HCl (Labetalol) 10 mg PRN PRN IV SBP > 160 Last administered on 10/21/18at 23:42; Admin Dose 10 MG; Start 10/21/18 at 20:30 Lorazepam (Ativan) 0.5 mg Q4 PRN IV anxiety Last administered on 10/22/18 08:37; Admin Dose 0.5 MG; Start 10/22/18 at 00:00 Famotidine (Pepcid Iv) 20 mg Q48H IV Last administered on 10/22/18at 08:37; Admin Dose 20 MG; Start 10/22/18 at 09:00 Al Hydrox/Mg Hydrox/Simethicone (Mag-Al Plus) 30 ml Q6H PRN PO GASTROINTESTINAL UPSET; Start 10/22/18 at 01:30 Epoetin Vic-epbx (RETACRIT(esrd)) 10,000 unit MoWeFr@1700 SC ; Start 10/23/18 at 17:00 Vancomycin HCl 250 ml @ 125 mls/hr 1600 IVPB ; Start 10/22/18 at 16:00; Stop 10/22/18 at 23:59 Insulin Human NPH (Humulin N) 4 unit DAILY@2200 SC ; Start 10/22/18 at 22:00 NAYAN WILLIS Oct 22, 2018 10:44
[2018-10-22] MEDS: PANTOPRAZOLE 40 MG INJ IV SCH ×2 (10:53→17:09)
[2018-10-22] MEDS: hydrALAzine 20 MG INJ IV PRN ×3 (10:54→21:10)
[2018-10-22] MEDS ORDERED: LIDOCAINE 1% (MPF) 5 ML VIAL SC ONE (11:00)
[2018-10-22] MEDS ORDERED: ENALAPRILAT 1.25 MG INJ IV PRN (11:00)
[2018-10-22] MEDS ORDERED: LEVALBUTEROL (NEB) 0.63 MG/3 ML AMP HHN PRN (11:00)
--- NOTE | 2018-10-22 13:05 | CONS ---
Assessment/Plan Assessment/Plan Hospital Course (Demo Recall) 28-year-old female with longstanding uncontrolled type 1 DM diagnosed at age 6 complicated by retinopathy, neuropathy and ESRD who presented to the emergency department for evaluation of nausea and vomiting for the past few days. Endocrine on board for management of diabetes mellitus Type 1 DM -continue Lantus 7 units daily -NPH 4 units added at bedtime to help improve morning hyperglycemia -continue novolog 2 units QAC (now that she's NPO, it will be Q8H) -continue custom sliding scale novolog QAC/Q8H when FS >180 -check FS AC and HS or Q8H since NPO -will monitor FS and adjust regimen accordingly Consultation Date/Type/Reason Admit Date/Time Oct 19, 2018 at 23:42 Initial Consult Date Requesting Provider: VERITO GARCIA Date/Time of Note DATE: 10/22/18 TIME: 12:59 24 HR Interval Summary Free Text/Dictation Patient seen and examined at bedside. She is s/p NGT placement due to vomiting. She complains of abdominal pain. Morning hyperglycemia noted Exam/Review of Systems Exam Vitals Vital Signs Date Temp Pulse Resp B/P (MAP) Pulse Ox O2 O2 Flow FiO2 Time Delivery Rate 10/22/18 94 12:00 10/22/18 19 125/61 100 Room Air 11:30 (82) 10/22/18 21 08:28 10/22/18 98.1 07:00 10/22/18 3.0 02:50 Intake and Output 10/21/18 10/21/18 10/22/18 1515:00 23:00 07:00 IntakeIntake Total 120 ml 1043 ml 510 ml OutputOutput Total 850 ml 100 ml 600 ml BalanceBalance -730 ml 943 ml -90 ml Exam General: Appears in distress due to pain. Skin appropriate for ethnicity Eye: Extraocular movements are intact, Normal conjunctiva. HENT: Normocephalic, atraumatic. NGT intact with green emesis Respiratory: Respirations are non-labored, Breath sounds are equal, Symmetrical chest wall expansion. Cardiovascular: S1, S2. No murmur. No LE edema Gastrointestinal: Soft, tender to palpation, Non-distended, Normal bowel sounds. Integumentary: Warm to touch. Neurologic: Alert, Oriented. Cognition and Speech: Functional cognition intact. Psychiatric: Cooperative, Appropriate mood & affect. Results Result Diagram: 10/22/18 0436 10/22/18 0436 Results 24hrs Laboratory Tests Test 10/21/18 18:13 10/21/18 21:42 10/22/18 04:36 10/22/18 08:04 Bedside Glucose 159 176 317 H White Blood Count 11.8 #H Red Blood Count 2.49 L Hemoglobin 7.6 L Hematocrit 24.1 L Mean Corpuscular 96.8 Volume Mean Corpuscular 30.5 Hemoglobin Mean Corpuscular 31.5 L Hemoglobin Concent Red Cell 15.7 H Distribution Width Platelet Count 200 Mean Platelet Volume 10.9 H Immature 0.300 Granulocytes % Neutrophils % 90.5 H Lymphocytes % 2.4 L Monocytes % 5.1 Eosinophils % 1.1 Basophils % 0.6 Nucleated Red Blood 0.0 Cells % Immature 0.030 Granulocytes # Neutrophils # 10.6 H Lymphocytes # 0.3 L Monocytes # 0.6 Eosinophils # 0.1 Basophils # 0.1 Nucleated Red Blood 0.0 Cells # Sodium Level 143 Potassium Level 4.7 Chloride Level 100 Carbon Dioxide Level 15 L Anion Gap 28 H Blood Urea Nitrogen 42 #H Creatinine 7.09 #H Est Glomerular 7 L Filtrat Rate mL/min Glucose Level 269 #H Calcium Level 9.7 Phosphorus Level 8.0 H Magnesium Level 2.5 Random Vancomycin 16.5 Level Test 10/22/18 10:26 Bedside Glucose 309 H Medications Medication Current Medications Miscellaneous Information (* Miscellaneous Pharmacy Order) HYPOGLYCEMIA TREATMENT HYPOGLYCEM PROTOCOL PRN XX .HYPOGLYCEMIA PROTOCOL; Start 10/20/18 at 00:00 Nitroglycerin (Nitroglycerin (Sl Tab) 0.4 Mg) 1 tab Q5M PRN SL CHEST PAIN Last administered on 10/20/18at 12:28; Admin Dose 1 TAB; Start 10/20/18 at 00:00 Acetaminophen (Tylenol Liquid) 650 mg Q6H PRN PO PAIN LEVEL 1-3 OR FEVER; S tart 10/20/18 at 00:00 Docusate Sodium (Colace) 100 mg Q12H PRN PO CONSTIPATION; Start 10/20/18 at 0 0:00 Bisacodyl (Dulcolax) 5 mg DAILY PRN PO CONSTIPATION; Start 10/20/18 at 00:00 Vancomycin HCl (Vanco Iv Per Pharmacy) VANCOMYCIN PER PHARMACY PER PROTOCOL XX ; Start 10/20/18 at 01:30 Piperacillin Sod/ Tazobactam Sod 50 ml @ 100 mls/hr Q12 IVPB Last administered on 10/22/18at 08:37; Admin Dose 100 MLS/HR; Start 10/20/18 at 09:00 Acetaminophen/ Hydrocodone Bitart ([place] (5/325)) 1 tab Q4H PRN PO MODERATE PAIN LEVEL 4-6; Start 10/20/18 at 03:00 Clonidine HCl (Catapres-Tts 3 Patch) 2 patch Q7D TRANSDERM Last administered on 10/21/18at 10:19; Admin Dose 2 PATCH; Start 10/21/18 at 09:00 Diagnostic Test (Pha) (Accu-Chek) 1 ea 02 XX Last administered on 10/21/18at 02:29; Admin Dose 1 EA; Start 10/21/18 at 02:00 Miscellaneous Information 1 ea NOTE XX ; Start 10/20/18 at 10:30 Glucose (Glutose) 15 gm Q15M PRN PO DECREASED GLUCOSE; Start 10/20/18 at 10:30 Glucose (Glutose) 22.5 gm Q15M PRN PO DECREASED GLUCOSE Last administered on 10/20/18at 17:16; Admin Dose 22.5 GM; Start 10/20/18 at 10:30 Dextrose (D50w Syringe) 25 ml Q15M PRN IV DECREASED GLUCOSE Last administered on 10/20/18at 17:34; Admin Dose 25 ML; Start 10/20/18 at 10:30 Dextrose (D50w Syringe) 50 ml Q15M PRN IV DECREASED GLUCOSE; Start 10/20/18 at 10:30 Glucagon (Glucagen) 1 mg Q15M PRN IM DECREASED GLUCOSE; Start 10/20/18 at 10:30 Glucose (Glutose) 15 gm Q15M PRN BUCCAL DECREASED GLUCOSE; Start 10/20/18 at 10:30 Hydralazine HCl (Apresoline) 10 mg Q4H PRN IV SYS BP > 150 Last administered on 10/22/18at 10:54; Admin Dose 10 MG; Start 10/20/18 at 23:30 Hydralazine HCl (Apresoline) 50 mg TID PO Last administered on 10/21/18at 06:06; Admin Dose 50 MG; Start 10/21/18 at 05:30 Heparin Sodium (Porcine) (Heparin (1000 Units/ml)) 3,700 unit AFTER DIALYSIS CATHETER Last administered on 10/21/18at 11:50; Admin Dose 3,700 UNIT; Start 10/21/18 at 08:00 Trimethobenzamide HCl (Tigan) 200 mg Q6H PRN IM NAUSEA AND/OR VOMITING Last administered on 10/21/18 18:21; Admin Dose 200 MG; Start 10/21/18 at 13:00 Calcium Carbonate (Ca Carbonate) 750 mg Q2H PRN PO GI; Start 10/21/18 at 15:00 Clonidine (Catapres) 0.4 mg BID PO ; Start 10/21/18 at 14:00 Hydromorphone HCl (Dilaudid) 2 mg Q4H PRN PO PAIN; Start 10/21/18 at 14:00 Labetalol HCl (Normodyne) 1,200 mg BID PO ; Start 10/21/18 at 14:00 Loperamide HCl (Imodium Cap) 2 mg TID PRN PO DIARRHEA; Start 10/21/18 at 14:00 Pantoprazole (Protonix Tab) 40 mg BID PO ; Start 10/21/18 at 14:00; Status Hold Spironolactone (Aldactone) 25 mg BID PO ; Start 10/21/18 at 21:00 Ondansetron HCl 8 mg/Sodium Chloride 54 ml @ 216 mls/hr Q4H PRN IV NAUSEA AND/OR VOMITING Last administered on 10/22/18 09:20; Admin Dose 216 MLS/HR; Start 10/21/18 at 14:30 Hydromorphone HCl (Dilaudid) 0.5 mg Q4H PRN IV SEVERE PAIN LEVEL 7-10 Last administered on 10/22/18 10:53; Admin Dose 0.5 MG; Start 10/21/18 at 16:00 Insulin Aspart (Novolog Insulin Pen) 2 unit WITH MEALS SC Last administered on 10/22/18 11:09; Admin Dose 2 UNIT; Start 10/22/18 at 07:35 Insulin Glargine (Lantus) 7 units DAILY@1000 SC Last administered on 10/22/18 10:34; Admin Dose 7 UNITS; Start 10/22/18 at 10:00 Insulin Aspart (Novolog Insulin Pen) NOVOLOG *CUSTOM* ALGORITHM AC MEALS AND BEDTIME SC Last administered on 10/22/18at 11:00; Admin Dose 2 UNIT; Start 10/21/18 at 21:00 Nicardipine HCl 50 mg/Sodium Chloride 500 ml @ 50 mls/hr TITRATE IV Last administered on 10/22/18at 02:23; Admin Dose 60 MLS/HR; Start 10/21/18 at 21:00 Labetalol HCl (Labetalol) 10 mg PRN PRN IV SBP > 160 Last administered on at 23:42; Admin Dose 10 MG; Start 10/21/18 at 20:30 Lorazepam (Ativan) 0.5 mg Q4 PRN IV anxiety Last administered on 10/22/18at 08:37; Admin Dose 0.5 MG; Start 10/22/18 at 00:00 Al Hydrox/Mg Hydrox/Simethicone (Mag-Al Plus) 30 ml Q6H PRN PO GASTROINTESTINAL UPSET; Start 10/22/18 at 01:30 Epoetin Vic-epbx (RETACRIT(esrd)) 10,000 unit MoWeFr@1700 SC ; Start 10/23/18 at 17:00 Vancomycin HCl 250 ml @ 125 mls/hr 1600 IVPB ; Start 10/22/18 at 16:00; Stop 10/22/18 at 23:59 Insulin Human NPH (Humulin N) 4 unit DAILY@2200 SC ; Start 10/22/18 at 22:00 Labetalol HCl (Labetalol) 10 mg Q6H PRN IV ELEVATED BLOOD PRESSURE; Start 10/22/18 at 11:00 Enalaprilat (Vasotec Iv) 1.25 mg Q6H PRN IV BLOOD PRESSURE SUPPORT; Start 10/22/18 at 11:00; Status Hold Pantoprazole (Protonix Iv) 40 mg BID@06,18 IV Last administered on 10/22/18at 10:53; Admin Dose 40 MG; Start 10/22/18 at 11:00 Levalbuterol (Xopenex Neb) 0.63 mg Q4H RESP THERAPY PRN HHN WHEEZING; Start 10/22/18 at 11:00 RAHEL FAJARDO MD Oct 22, 2018 13:05
[2018-10-22] MEDS: LABETALOL HCL 20MG INJ IV PRN ×2 (13:38→17:24)
--- NOTE | 2018-10-22 14:34 | CONS ---
Assessment/Plan Assessment/Plan Hospital Course (Demo Recall) No acute changes, sleeping, looks comfortable, Tm 99.5 Indwelling: Right chest permacath Microbiology: Blood cultures negative since admission MRSA swab negative Chest x-ray on admission revealed no acute cardiopulmonary disease. Right lower extremity CT revealed soft tissue swelling surrounding community it slightly impacted fracture of the proximal meet DF pieces of the tibia and fibula. Knee joint fluid extending to the suprapatellar bursa Extremity venous study revealed no DVT of the right lower extremity Antimicrobials: Zosyn and vancomycin Allergy: Clindamycin Physical examination: This is a chronically ill-appearing middle-aged woman who is in no distress. Head atraumatic normocephalic sclera nonicteric vehicle mucosa dry neck is supple chest rise symmetrical breath sounds diminished bases. Heart: S1-S2. Abdomen distended soft, bowel sounds present. Extremities with right lower extremity significant erythema edema and bruising Assessment: 1. Right lower extremity cellulitis/fracture 2. Uncontrolled hypertension 3. Diabetes 4. End-stage renal disease, hemodialysis dependent Plan: Stable, continue abx, f/u [place] rec-s==> conservative nonsurgical treatment should be tried first with the immobilization of the right lower extremity in a long leg brace with a dial lock a, continue pain management, HD per renal Consultation Date/Type/Reason Admit Date/Time Oct 19, 2018 at 23:42 Initial Consult Date Type of Consult id Requesting Provider: VERITO GARCIA Date/Time of Note DATE: 10/22/18 TIME: 14:33 Exam/Review of Systems Exam Vitals Vital Signs Date Temp Pulse Resp B/P (MAP) Pulse Ox O2 O2 Flow FiO2 Time Delivery Rate 10/22/18 97 15 168/81 100 Room Air 13:30 (110) 10/22/18 21 08:28 10/22/18 98.1 07:00 10/22/18 3.0 02:50 Intake and Output 10/21/18 10/21/18 10/22/18 1515:00 23:00 07:00 IntakeIntake Total 120 ml 1043 ml 510 ml OutputOutput Total 850 ml 100 ml 600 ml BalanceBalance -730 ml 943 ml -90 ml Results Result Diagram: 10/22/18 0436 10/22/18 0436 Results 24hrs Laboratory Tests Test 10/21/18 18:13 10/21/18 21:42 10/22/18 04:36 10/22/18 08:04 Bedside Glucose 159 176 317 H White Blood Count 11.8 #H Red Blood Count 2.49 L Hemoglobin 7.6 L Hematocrit 24.1 L Mean Corpuscular 96.8 Volume Mean Corpuscular 30.5 Hemoglobin Mean Corpuscular 31.5 L Hemoglobin Concent Red Cell 15.7 H Distribution Width Platelet Count 200 Mean Platelet Volume 10.9 H Immature 0.300 Granulocytes % Neutrophils % 90.5 H Lymphocytes % 2.4 L Monocytes % 5.1 Eosinophils % 1.1 Basophils % 0.6 Nucleated Red Blood 0.0 Cells % Immature 0.030 Granulocytes # Neutrophils # 10.6 H Lymphocytes # 0.3 L Monocytes # 0.6 Eosinophils # 0.1 Basophils # 0.1 Nucleated Red Blood 0.0 Cells # Sodium Level 143 Potassium Level 4.7 Chloride Level 100 Carbon Dioxide Level 15 L Anion Gap 28 H Blood Urea Nitrogen 42 #H Creatinine 7.09 #H Est Glomerular 7 L Filtrat Rate mL/min Glucose Level 269 #H Calcium Level 9.7 Phosphorus Level 8.0 H Magnesium Level 2.5 Random Vancomycin 16.5 Level Test 10/22/18 10:26 Bedside Glucose 309 H Medications Medication Current Medications Miscellaneous Information (* Miscellaneous Pharmacy Order) HYPOGLYCEMIA TREATMENT HYPOGLYCEM PROTOCOL PRN XX .HYPOGLYCEMIA PROTOCOL; Start 10/20/18 at 00:00 Nitroglycerin (Nitroglycerin (Sl Tab) 0.4 Mg) 1 tab Q5M PRN SL CHEST PAIN Last administered on 10/20/18at 12:28; Admin Dose 1 TAB; Start 10/20/18 at 00:00 Acetaminophen (Tylenol Liquid) 650 mg Q6H PRN PO PAIN LEVEL 1-3 OR FEVER; Start 10/20/18 at 00:00 Docusate Sodium (Colace) 100 mg Q12H PRN PO CONSTIPATION; Start 10/20/18 at 00:00 Bisacodyl (Dulcolax) 5 mg DAILY PRN PO CONSTIPATION; Start 10/20/18 at 00:00 Vancomycin HCl (Vanco Iv Per Pharmacy) VANCOMYCIN PER PHARMACY PER PROTOCOL XX ; Start 10/20/18 at 01:30 Piperacillin Sod/ Tazobactam Sod 50 ml @ 100 mls/hr Q12 IVPB Last administered on 10/22/18at 08:37; Admin Dose 100 MLS/HR; Start 10/20/18 at 09:00 Acetaminophen/ Hydrocodone Bitart ([place] (5/325)) 1 tab Q4H PRN PO MODERATE PAIN LEVEL 4-6; Start 10/20/18 at 03:00 Clonidine HCl (Catapres-Tts 3 Patch) 2 patch Q7D TRANSDERM Last administered on 10/21/18at 10:19; Admin Dose 2 PATCH; Start 10/21/18 at 09:00 Diagnostic Test (Pha) (Accu-Chek) 1 ea 02 XX Last administered on 10/21/18at 02:29; Admin Dose 1 EA; Start 10/21/18 at 02:00 Miscellaneous Information 1 ea NOTE XX ; Start 10/20/18 at 10:30 Glucose (Glutose) 15 gm Q15M PRN PO DECREASED GLUCOSE; Start 10/20/18 at 10:30 Glucose (Glutose) 22.5 gm Q15M PRN PO DECREASED GLUCOSE Last administered on 10/20/18at 17:16; Admin Dose 22.5 GM; Start 10/20/18 at 10:30 Dextrose (D50w Syringe) 25 ml Q15M PRN IV DECREASED GLUCOSE Last administered on 10/20/18at 17:34; Admin Dose 25 ML; Start 10/20/18 at 10:30 Dextrose (D50w Syringe) 50 ml Q15M PRN IV DECREASED GLUCOSE; Start 10/20/18 at 10:30 Glucagon (Glucagen) 1 mg Q15M PRN IM DECREASED GLUCOSE; Start 10/20/18 at 10:30 Glucose (Glutose) 15 gm Q15M PRN BUCCAL DECREASED GLUCOSE; Start 10/20/18 at 10:30 Hydralazine HCl (Apresoline) 10 mg Q4H PRN IV SYS BP > 150 Last administered on 10/22/18at 10:54; Admin Dose 10 MG; Start 10/20/18 at 23:30 Hydralazine HCl (Apresoline) 50 mg TID PO Last administered on 10/21/18 06:06; Admin Dose 50 MG; Start 10/21/18 at 05:30 Heparin Sodium (Porcine) (Heparin (1000 Units/ml)) 3,700 unit AFTER DIALYSIS CATHETER Last administered on 10/21/18at 11:50; Admin Dose 3,700 UNIT; Start 10/21/18 at 08:00 Trimethobenzamide HCl (Tigan) 200 mg Q6H PRN IM NAUSEA AND/OR VOMITING Last administered on 10/21/18 18:21; Admin Dose 200 MG; Start 10/21/18 at 13:00 Calcium Carbonate (Ca Carbonate) 750 mg Q2H PRN PO GI; Start 10/21/18 at 15:00 Clonidine (Catapres) 0.4 mg BID PO ; Start 10/21/18 at 14:00 Hydromorphone HCl (Dilaudid) 2 mg Q4H PRN PO PAIN; Start 10/21/18 at 14:00 Labetalol HCl (Normodyne) 1,200 mg BID PO ; Start 10/21/18 at 14:00 Loperamide HCl (Imodium Cap) 2 mg TID PRN PO DIARRHEA; Start 10/21/18 at 14:00 Pantoprazole (Protonix Tab) 40 mg BID PO ; Start 10/21/18 at 14:00; Status Hold Spironolactone (Aldactone) 25 mg BID PO ; Start 10/21/18 at 21:00 Ondansetron HCl 8 mg/Sodium Chloride 54 ml @ 216 mls/hr Q4H PRN IV NAUSEA AND/OR VOMITING Last administered on 10/22/18 09:20; Admin Dose 216 MLS/HR; Start 10/21/18 at 14:30 Hydromorphone HCl (Dilaudid) 0.5 mg Q4H PRN IV SEVERE PAIN LEVEL 7-10 Last administered on 10/22/18 10:53; Admin Dose 0.5 MG; Start 10/21/18 at 16:00 Insulin Aspart (Novolog Insulin Pen) 2 unit WITH MEALS SC Last administered on 10/22/18 11:09; Admin Dose 2 UNIT; Start 10/22/18 at 07:35 Insulin Glargine (Lantus) 7 units DAILY@1000 SC Last administered on 10/22/18 10:34; Admin Dose 7 UNITS; Start 10/22/18 at 10:00 Insulin Aspart (Novolog Insulin Pen) NOVOLOG *CUSTOM* ALGORITHM AC MEALS AND BEDTIME SC Last administered on 10/22/18 11:00; Admin Dose 2 UNIT; Start 10/21/18 at 21:00 Nicardipine HCl 50 mg/Sodium Chloride 500 ml @ 50 mls/hr TITRATE IV Last administered on 10/22/18at 02:23; Admin Dose 60 MLS/HR; Start 10/21/18 at 21:00 Labetalol HCl (Labetalol) 10 mg PRN PRN IV SBP > 160 Last administered on 10/22/18at 13:38; Admin Dose 10 MG; Start 10/21/18 at 20:30 Lorazepam (Ativan) 0.5 mg Q4 PRN IV anxiety Last administered on 10/22/18at 13:25; Admin Dose 0.5 MG; Start 10/22/18 at 00:00 Al Hydrox/Mg Hydrox/Simethicone (Mag-Al Plus) 30 ml Q6H PRN PO GASTROINTESTINAL UPSET; Start 10/22/18 at 01:30 Epoetin Vic-epbx (RETACRIT(esrd)) 10,000 unit MoWeFr@1700 SC ; Start 10/23/18 at 17:00 Vancomycin HCl 250 ml @ 125 mls/hr 1600 IVPB ; Start 10/22/18 at 16:00; Stop 10/22/18 at 23:59 Insulin Human NPH (Humulin N) 4 unit DAILY@2200 SC ; Start 10/22/18 at 22:00 Labetalol HCl (Labetalol) 10 mg Q6H PRN IV ELEVATED BLOOD PRESSURE; Start 10/22/18 at 11:00 Enalaprilat (Vasotec Iv) 1.25 mg Q6H PRN IV BLOOD PRESSURE SUPPORT; Start 10/22/18 at 11:00; Status Hold Pantoprazole (Protonix Iv) 40 mg BID@06,18 IV Last administered on 10/22/18at 10:53; Admin Dose 40 MG; Start 10/22/18 at 11:00 Levalbuterol (Xopenex Neb) 0.63 mg Q4H RESP THERAPY PRN HHN WHEEZING; Start 10/22/18 at 11:00 RORY CRUM NP Oct 22, 2018 14:34
[2018-10-22] MEDS ORDERED: HYDROmorphONE 0.5 MG/0.5 ML SYG IV STA (15:27)
[2018-10-22] MEDS: METHYLNALTREXONE 12 MG/0.6 ML VIAL SC SCH (15:56)
[2018-10-22] MEDS ORDERED: VANCOMYCIN 1 GM 250 ML IVPB SCH (16:00)
--- NOTE | 2018-10-22 16:35 | CONS ---
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 pending results- pt may require EGD- she will have HD 10/23- therefore we will proceed with EGD 10/24- if warranted Continue Protonix/Zofran/Tigan - pending results will consider starting erythromycin if deemed necessary, as patient has an allergy to Reglan l Endoscopy - risks/benefits/alternatives/indications of procedure and sedation/anesthesia discussed with patient who states understanding and gives informed consent to proceed. Further recommendation based on clinical course CC: FARIDA CANNON MD ; Consultation Date/Type/Reason Admit Date/Time Oct 19, 2018 at 23:42 Date of Consultation: Oct 22, 2018 Type of Consult GI Reason for Consultation Persistent nausea/vomiting Date/Time of Note DATE: 10/22/18 TIME: 16:22 Hx of Present Illness This is a 28-year-old female with past medical history of diabetes mellitus, end-stage renal disease on hemodialysis, gastroparesis, gastric ulcers, and previous cataract surgery, who was admitted for pain and swelling of the RLE. During hospitalization patient developed persistent nausea and vomiting and NG tube was inserted yesterday with large amounts of output GI was consulted for further evaluation. Currently patient is on Zofran and Tigan without significant relief of note her pain medication has recently been decreased which could be playing a role in nausea. She does note to have a history of gastroparesis and is not able to tolerate Reglan as she has an adverse reaction of hives. She states she has tried erythromycin unclear medication did help. She states her last EGD was about 3-4 months ago at that time she was diagnosed with gastric ulcers unclear if ulcers were biopsied and if so the results of bx. at time of evaluation NG tube is in place moderate amount of output noted today. No overt signs of GI bleed noted. Given large amounts of output we will proceed with small bowel follow-through to rule out obstruction, based on those results patient may require an EGD plan for her to have hemodialysis tomorrow therefore deemed necessary we will proceed with EGD on . Review of Systems: A 12 system, review was conducted and is negative except as noted in the HPI or here. Past Medical History Medical History: diabetes, renal disease Home Meds Reported Medications Pantoprazole (Protonix) 40 Mg Tabec, 40 MG PO BID, TAB 10/21/18 Loperamide Hcl* (Imodium*) 2 Mg Capsule, 2 MG PO TID PRN for DIARRHEA, CAP MAX 16 mg/day 10/21/18 Insulin Glargine* (Lantus*) 100 Unit/Ml Soln, 10 UNIT SC DAILY, #1 VIAL 10/21/18 Insulin Lispro (Humalog) 100 Unit/1 Ml Cartridge, 100 UNIT SQ SLIDING SCALE 5-15 U, EA 10/21/18 Lorazepam* (Lorazepam*) 0.5 Mg Tablet, 0.5 MG PO Q6 PRN for AGITATION/ANXIETY, TAB 10/21/18 Calcium Carbonate* (Tums X-Str) 300 Mg Tab.chew, 300 MG PO Q2H PRN for GASTROINTESTINAL UPSET, TAB.CHEW 10/21/18 Clonidine Hcl* (Clonidine Hcl*) 0.3 Mg Tablet, 0.4 MG PO BID, TAB 10/21/18 Hydralazine Hcl* (Hydralazine Hcl*) 50 Mg Tab, 100 MG PO BID, #180 TAB 10/21/18 Spironolactone* (Spironolactone*) 100 Mg Tablet, 25 MG PO BID, TAB 10/21/18 Labetalol Hcl (Normodyne) 200 Mg Tablet, 1200 MG PO BID, TAB 10/21/18 Hydromorphone Hcl (Dilaudid) 2 Mg Tab, 2 MG PO Q4 PRN for PAIN, TAB 10/21/18 Clonidine Patch (CLONIDINE PATCH) 0.3 Mg/24 Hr Patch, 2 PATCH.WK TD Q7D, #4 PATCH.WK 10/21/18 Medications Current Medications Miscellaneous Information (* Miscellaneous Pharmacy Order) HYPOGLYCEMIA TREATMENT HYPOGLYCEM PROTOCOL PRN XX .HYPOGLYCEMIA PROTOCOL; Start 10/20/18 at 00:00 Nitroglycerin (Nitroglycerin (Sl Tab) 0.4 Mg) 1 tab Q5M PRN SL CHEST PAIN Last administered on 10/20/18at 12:28; Admin Dose 1 TAB; Start 10/20/18 at 00:00 Acetaminophen (Tylenol Liquid) 650 mg Q6H PRN PO PAIN LEVEL 1-3 OR FEVER; Start 10/20/18 at 00:00 Docusate Sodium (Colace) 100 mg Q12H PRN PO CONSTIPATION; Start 10/20/18 at 00:00 Bisacodyl (Dulcolax) 5 mg DAILY PRN PO CONSTIPATION; Start 10/20/18 at 00:00 Vancomycin HCl (Vanco Iv Per Pharmacy) VANCOMYCIN PER PHARMACY PER PROTOCOL XX ; Start 10/20/18 at 01:30 Piperacillin Sod/ Tazobactam Sod 50 ml @ 100 mls/hr Q12 IVPB Last administered on 10/22/18at 08:37; Admin Dose 100 MLS/HR; Start 10/20/18 at 09:00 Acetaminophen/ Hydrocodone Bitart ([place] (5/325)) 1 tab Q4H PRN PO MODERATE PAIN LEVEL 4-6; Start 10/20/18 at 03:00 Clonidine HCl (Catapres-Tts 3 Patch) 2 patch Q7D TRANSDERM Last administered on 10/21/18at 10:19; Admin Dose 2 PATCH; Start 10/21/18 at 09:00 Diagnostic Test (Pha) (Accu-Chek) 1 ea 02 XX Last administered on 10/21/18at 02:29; Admin Dose 1 EA; Start 10/21/18 at 02:00 Miscellaneous Information 1 ea NOTE XX ; Start 10/20/18 at 10:30 Glucose (Glutose) 15 gm Q15M PRN PO DECREASED GLUCOSE; Start 10/20/18 at 10:30 Glucose (Glutose) 22.5 gm Q15M PRN PO DECREASED GLUCOSE Last administered on 10/20/18at 17:16; Admin Dose 22.5 GM; Start 10/20/18 at 10:30 Dextrose (D50w Syringe) 25 ml Q15M PRN IV DECREASED GLUCOSE Last administered on 10/20/18at 17:34; Admin Dose 25 ML; Start 10/20/18 at 10:30 Dextrose (D50w Syringe) 50 ml Q15M PRN IV DECREASED GLUCOSE; Start 10/20/18 at 10:30 Glucagon (Glucagen) 1 mg Q15M PRN IM DECREASED GLUCOSE; Start 10/20/18 at 10:30 Glucose (Glutose) 15 gm Q15M PRN BUCCAL DECREASED GLUCOSE; Start 10/20/18 at 10:30 Hydralazine HCl (Apresoline) 10 mg Q4H PRN IV SYS BP > 150 Last administered on 10/22/18at 15:15; Admin Dose 10 MG; Start 10/20/18 at 23:30 Hydralazine HCl (Apresoline) 50 mg TID PO Last administered on 10/21/18at 06:06; Admin Dose 50 MG; Start 10/21/18 at 05:30 Heparin Sodium (Porcine) (Heparin (1000 Units/ml)) 3,700 unit AFTER DIALYSIS CATHETER Last administered on 10/21/18at 11:50; Admin Dose 3,700 UNIT; Start 10/21/18 at 08:00 Trimethobenzamide HCl (Tigan) 200 mg Q6H PRN IM NAUSEA AND/OR VOMITING Last administered on 10/21/18at 18:21; Admin Dose 200 MG; Start 10/21/18 at 13:00 Calcium Carbonate (Ca Carbonate) 750 mg Q2H PRN PO GI; Start 10/21/18 at 15:00 Clonidine (Catapres) 0.4 mg BID PO ; Start 10/21/18 at 14:00 Hydromorphone HCl (Dilaudid) 2 mg Q4H PRN PO PAIN; Start 10/21/18 at 14:00 Labetalol HCl (Normodyne) 1,200 mg BID PO ; Start 10/21/18 at 14:00 Loperamide HCl (Imodium Cap) 2 mg TID PRN PO DIARRHEA; Start 10/21/18 at 14:00 Pantoprazole (Protonix Tab) 40 mg BID PO ; Start 10/21/18 at 14:00; Status Hold Spironolactone (Aldactone) 25 mg BID PO ; Start 10/21/18 at 21:00 Ondansetron HCl 8 mg/Sodium Chloride 54 ml @ 216 mls/hr Q4H PRN IV NAUSEA AND/OR VOMITING Last administered on 10/22/18at 09:20; Admin Dose 216 MLS/HR; Start 10/21/18 at 14:30 Hydromorphone HCl (Dilaudid) 0.5 mg Q4H PRN IV SEVERE PAIN LEVEL 7-10 Last administered on 10/22/18 14:54; Admin Dose 0.5 MG; Start 10/21/18 at 16:00 Insulin Aspart (Novolog Insulin Pen) 2 unit WITH MEALS SC Last administered on 10/22/18 11:09; Admin Dose 2 UNIT; Start 10/22/18 at 07:35 Insulin Glargine (Lantus) 7 units DAILY@1000 SC Last administered on 10/22/18 10:34; Admin Dose 7 UNITS; Start 10/22/18 at 10:00 Insulin Aspart (Novolog Insulin Pen) NOVOLOG *CUSTOM* ALGORITHM AC MEALS AND BEDTIME SC Last administered on 10/22/18 11:00; Admin Dose 2 UNIT; Start 10/21/18 at 21:00 Nicardipine HCl 50 mg/Sodium Chloride 500 ml @ 50 mls/hr TITRATE IV Last administered on 10/22/18 02:23; Admin Dose 60 MLS/HR; Start 10/21/18 at 21:00 Labetalol HCl (Labetalol) 10 mg PRN PRN IV SBP > 160 Last administered on 10/22/18 13:38; Admin Dose 10 MG; Start 10/21/18 at 20:30 Lorazepam (Ativan) 0.5 mg Q4 PRN IV anxiety Last administered on 10/22/18 13:25; Admin Dose 0.5 MG; Start 10/22/18 at 00:00 Al Hydrox/Mg Hydrox/Simethicone (Mag-Al Plus) 30 ml Q6H PRN PO GASTROINTESTINAL UPSET; Start 10/22/18 at 01:30 Epoetin Vic-epbx (RETACRIT(esrd)) 10,000 unit MoWeFr@1700 SC ; Start 10/23/18 at 17:00 Vancomycin HCl 250 ml @ 125 mls/hr 1600 IVPB Last administered on 10/22/18 15:15; Admin Dose 125 MLS/HR; Start 10/22/18 at 16:00; Stop 10/22/18 at 23:59 Insulin Human NPH (Humulin N) 4 unit DAILY@2200 SC ; Start 10/22/18 at 22:00 Labetalol HCl (Labetalol) 10 mg Q6H PRN IV ELEVATED BLOOD PRESSURE; Start 10/22/18 at 11:00 Enalaprilat (Vasotec Iv) 1.25 mg Q6H PRN IV BLOOD PRESSURE SUPPORT; Start 10/22/18 at 11:00; Status Hold Pantoprazole (Protonix Iv) 40 mg BID@06,18 IV Last administered on 10/22/18at 10:53; Admin Dose 40 MG; Start 10/22/18 at 11:00 Levalbuterol (Xopenex Neb) 0.63 mg Q4H RESP THERAPY PRN HHN WHEEZING; Start 10/22/18 at 11:00 Methylnaltrexone [place] (Relistor) 12 mg Q48H SC Last administered on 10/22/18at 15:56; Admin Dose 12 MG; Start 10/22/18 at 15:30 Allergies: Coded Allergies: amlodipine (Verified Allergy, Intermediate, swelling of lips, 10/21/18) nifedipine (Verified Allergy, Intermediate, 10/21/18) adhesive tape (Verified Allergy, Mild, 06/20/16) benazepril (Verified Allergy, Mild, 06/20/16) ketorolac (Verified Allergy, Mild, 06/20/16) latex (Verified Allergy, Mild, 06/20/16) metoclopramide (Verified Allergy, Mild, 06/20/16) morphine (Verified Allergy, Mild, 06/20/16) tramadol (Verified Allergy, Mild, 06/20/16) clindamycin (Verified Allergy, Unknown, 10/19/18) Past Surgical History Past Surgical Hx: other (AV fistula) Social History Alcohol Use: none Smoking Status: Never smoker Drug Use: none Exam/Review of Systems Exam Vitals Vital Signs Date Temp Pulse Resp B/P (MAP) Pulse Ox O2 O2 Flow FiO2 Time Delivery Rate 10/22/18 85 16:00 10/22/18 22 122/60 100 Room Air 15:30 (80) 10/22/18 21 08:28 10/22/18 98.1 07:00 10/22/18 3.0 02:50 Intake and Output 10/21/18 10/21/18 10/22/18 1515:00 23:00 07:00 IntakeIntake Total 120 ml 1043 ml 510 ml OutputOutput Total 850 ml 100 ml 600 ml BalanceBalance -730 ml 943 ml -90 ml Exam PHYSICAL EXAMINATION: GENERAL: Well developed, alert & oriented x 3, lethargic SKIN: Dialysis catheter. EYES: Pupils equal reactive to light, no discharge. EARS/NOSE AND THROAT: Ears normal, nose normal NECK: Supple, no masses CHEST: Inspection within normal limits. CARDIOVASCULAR: Heart: Regular rate and rhythm RESPIRATORY: Lungs clear to auscultation GASTROINTESTINAL AND LIVER: Abdomen: Soft, upper tenderness, non-distended, no hernias, no masses, no organomegaly, no ascites, no guarding, no rebound tenderness, normoactive bowel sounds. Rectal: Deferred. EXTREMITIES: No cyanosis, clubbing or edema. Results Result Diagram: 10/22/18 0436 10/22/18 0436 Results 24hrs Laboratory Tests Test 10/21/18 18:13 10/21/18 21:42 10/22/18 04:36 10/22/18 08:04 Bedside Glucose 159 176 317 H White Blood Count 11.8 #H Red Blood Count 2.49 L Hemoglobin 7.6 L Hematocrit 24.1 L Mean Corpuscular 96.8 Volume Mean Corpuscular 30.5 Hemoglobin Mean Corpuscular 31.5 L Hemoglobin Concent Red Cell 15.7 H Distribution Width Platelet Count 200 Mean Platelet Volume 10.9 H Immature 0.300 Granulocytes % Neutrophils % 90.5 H Lymphocytes % 2.4 L Monocytes % 5.1 Eosinophils % 1.1 Basophils % 0.6 Nucleated Red Blood 0.0 Cells % Immature 0.030 Granulocytes # Neutrophils # 10.6 H Lymphocytes # 0.3 L Monocytes # 0.6 Eosinophils # 0.1 Basophils # 0.1 Nucleated Red Blood 0.0 Cells # Sodium Level 143 Potassium Level 4.7 Chloride Level 100 Carbon Dioxide Level 15 L Anion Gap 28 H Blood Urea Nitrogen 42 #H Creatinine 7.09 #H Est Glomerular 7 L Filtrat Rate mL/min Glucose Level 269 #H Calcium Level 9.7 Phosphorus Level 8.0 H Magnesium Level 2.5 Random Vancomycin 16.5 Level Test 10/22/18 10:26 Bedside Glucose 309 H Medications Medication Current Medications Miscellaneous Information (* Miscellaneous Pharmacy Order) HYPOGLYCEMIA TREATMENT HYPOGLYCEM PROTOCOL PRN XX .HYPOGLYCEMIA PROTOCOL; Start 10/20/18 at 00:00 Nitroglycerin (Nitroglycerin (Sl Tab) 0.4 Mg) 1 tab Q5M PRN SL CHEST PAIN Last administered on 10/20/18at 12:28; Admin Dose 1 TAB; Start 10/20/18 at 00:00 Acetaminophen (Tylenol Liquid) 650 mg Q6H PRN PO PAIN LEVEL 1-3 OR FEVER; Start 10/20/18 at 00:00 Docusate Sodium (Colace) 100 mg Q12H PRN PO CONSTIPATION; Start 10/20/18 at 00:00 Bisacodyl (Dulcolax) 5 mg DAILY PRN PO CONSTIPATION; Start 10/20/18 at 00:00 Vancomycin HCl (Vanco Iv Per Pharmacy) VANCOMYCIN PER PHARMACY PER PROTOCOL XX ; Start 10/20/18 at 01:30 Piperacillin Sod/ Tazobactam Sod 50 ml @ 100 mls/hr Q12 IVPB Last administered on 10/22/18at 08:37; Admin Dose 100 MLS/HR; Start 10/20/18 at 09:00 Acetaminophen/ Hydrocodone Bitart ([place] (5/325)) 1 tab Q4H PRN PO MODERATE PAIN LEVEL 4-6; Start 10/20/18 at 03:00 Clonidine HCl (Catapres-Tts 3 Patch) 2 patch Q7D TRANSDERM Last administered on 10/21/18at 10:19; Admin Dose 2 PATCH; Start 10/21/18 at 09:00 Diagnostic Test (Pha) (Accu-Chek) 1 ea 02 XX Last administered on 10/21/18at 02:29; Admin Dose 1 EA; Start 10/21/18 at 02:00 Miscellaneous Information 1 ea NOTE XX ; Start 10/20/18 at 10:30 Glucose (Glutose) 15 gm Q15M PRN PO DECREASED GLUCOSE; Start 10/20/18 at 10:30 Glucose (Glutose) 22.5 gm Q15M PRN PO DECREASED GLUCOSE Last administered on 10/20/18at 17:16; Admin Dose 22.5 GM; Start 10/20/18 at 10:30 Dextrose (D50w Syringe) 25 ml Q15M PRN IV DECREASED GLUCOSE Last administered on 10/20/18at 17:34; Admin Dose 25 ML; Start 10/20/18 at 10:30 Dextrose (D50w Syringe) 50 ml Q15M PRN IV DECREASED GLUCOSE; Start 10/20/18 at 10:30 Glucagon (Glucagen) 1 mg Q15M PRN IM DECREASED GLUCOSE; Start 10/20/18 at 10:30 Glucose (Glutose) 15 gm Q15M PRN BUCCAL DECREASED GLUCOSE; Start 10/20/18 at 10:30 Hydralazine HCl (Apresoline) 10 mg Q4H PRN IV SYS BP > 150 Last administered on 10/22/18at 15:15; Admin Dose 10 MG; Start 10/20/18 at 23:30 Hydralazine HCl (Apresoline) 50 mg TID PO Last administered on 10/21/18at 06:06; Admin Dose 50 MG; Start 10/21/18 at 05:30 Heparin Sodium (Porcine) (Heparin (1000 Units/ml)) 3,700 unit AFTER DIALYSIS CATHETER Last administered on 10/21/18at 11:50; Admin Dose 3,700 UNIT; Start 10/21/18 at 08:00 Trimethobenzamide HCl (Tigan) 200 mg Q6H PRN IM NAUSEA AND/OR VOMITING Last administered on 10/21/18at 18:21; Admin Dose 200 MG; Start 10/21/18 at 13:00 Calcium Carbonate (Ca Carbonate) 750 mg Q2H PRN PO GI; Start 10/21/18 at 15:00 Clonidine (Catapres) 0.4 mg BID PO ; Start 10/21/18 at 14:00 Hydromorphone HCl (Dilaudid) 2 mg Q4H PRN PO PAIN; Start 10/21/18 at 14:00 Labetalol HCl (Normodyne) 1,200 mg BID PO ; Start 10/21/18 at 14:00 Loperamide HCl (Imodium Cap) 2 mg TID PRN PO DIARRHEA; Start 10/21/18 at 14:00 Pantoprazole (Protonix Tab) 40 mg BID PO ; Start 10/21/18 at 14:00; Status Hold Spironolactone (Aldactone) 25 mg BID PO ; Start 10/21/18 at 21:00 Ondansetron HCl 8 mg/Sodium Chloride 54 ml @ 216 mls/hr Q4H PRN IV NAUSEA AND/OR VOMITING Last administered on 10/22/18at 09:20; Admin Dose 216 MLS/HR; Start 10/21/18 at 14:30 Hydromorphone HCl (Dilaudid) 0.5 mg Q4H PRN IV SEVERE PAIN LEVEL 7-10 Last administered on 10/22/18 14:54; Admin Dose 0.5 MG; Start 10/21/18 at 16:00 Insulin Aspart (Novolog Insulin Pen) 2 unit WITH MEALS SC Last administered on 10/22/18 11:09; Admin Dose 2 UNIT; Start 10/22/18 at 07:35 Insulin Glargine (Lantus) 7 units DAILY@1000 SC Last administered on 10/22/18 10:34; Admin Dose 7 UNITS; Start 10/22/18 at 10:00 Insulin Aspart (Novolog Insulin Pen) NOVOLOG *CUSTOM* ALGORITHM AC MEALS AND BEDTIME SC Last administered on 10/22/18 11:00; Admin Dose 2 UNIT; Start 10/21/18 at 21:00 Nicardipine HCl 50 mg/Sodium Chloride 500 ml @ 50 mls/hr TITRATE IV Last administered on 10/22/18 02:23; Admin Dose 60 MLS/HR; Start 10/21/18 at 21:00 Labetalol HCl (Labetalol) 10 mg PRN PRN IV SBP > 160 Last administered on 10/22/18 13:38; Admin Dose 10 MG; Start 10/21/18 at 20:30 Lorazepam (Ativan) 0.5 mg Q4 PRN IV anxiety Last administered on 10/22/18 13:25; Admin Dose 0.5 MG; Start 10/22/18 at 00:00 Al Hydrox/Mg Hydrox/Simethicone (Mag-Al Plus) 30 ml Q6H PRN PO GASTROINTESTINAL UPSET; Start 10/22/18 at 01:30 Epoetin Vic-epbx (RETACRIT(esrd)) 10,000 unit MoWeFr@1700 SC ; Start 10/23/18 at 17:00 Vancomycin HCl 250 ml @ 125 mls/hr 1600 IVPB Last administered on 10/22/18 15:15; Admin Dose 125 MLS/HR; Start 10/22/18 at 16:00; Stop 10/22/18 at 23:59 Insulin Human NPH (Humulin N) 4 unit DAILY@2200 SC ; Start 10/22/18 at 22:00 Labetalol HCl (Labetalol) 10 mg Q6H PRN IV ELEVATED BLOOD PRESSURE; Start 10/22/18 at 11:00 Enalaprilat (Vasotec Iv) 1.25 mg Q6H PRN IV BLOOD PRESSURE SUPPORT; Start 10/22/18 at 11:00; Status Hold Pantoprazole (Protonix Iv) 40 mg BID@06,18 IV Last administered on 10/22/18at 10:53; Admin Dose 40 MG; Start 10/22/18 at 11:00 Levalbuterol (Xopenex Neb) 0.63 mg Q4H RESP THERAPY PRN HHN WHEEZING; Start 10/22/18 at 11:00 Methylnaltrexone [place] (Relistor) 12 mg Q48H SC Last administered on 10/01 09/17at 15:56; Admin Dose 12 MG; Start 10/22/18 at 15:30 KAYLA BARILLAS Oct 22, 2018 16:32
[2018-10-22 18:21] LABS: PTH CALCIUM 8.4 mg/dL (8.6-10.2)
[2018-10-22] MEDS ORDERED: NPH, HUMAN INSULIN ISOPHANE 3ML VIAL SC SCH (22:00)
[2018-10-23] VITALS (21 sets, daily range): BP systolic 117–239; BP diastolic 37–105; PULSE 80–93; RESP 18–20
[2018-10-23] MEDS: HYDROmorphONE 0.5 MG/0.5 ML SYG IV PRN ×6 (00:31→21:14)
[2018-10-23] MEDS: LORAZEPAM 2 MG INJ IV PRN ×3 (01:07→12:24)
[2018-10-23] MEDS: ACCU-CHEK XX SCH (02:00)
[2018-10-23] MEDS: PANTOPRAZOLE 40 MG INJ IV SCH ×2 (05:55→18:28)
--- NOTE | 2018-10-23 08:29 | PN ---
DATE: 10/23/2018 SUBJECTIVE: The patient was transferred from intensive care unit to telemetry. No other acute event s noted overnight. The patient is requesting pain medications. The patient is pending dialysis toda y. OBJECTIVE: VITAL SIGNS: Blood pressure is 193/82, respirations 20, pulse 90, temperature 97.6. HEENT: Head is normocephalic. NECK: Supple. HEART: Regular rate. LUNGS: Show diminished breath sounds at the base. ABDOMEN: Soft, nontender to palpation. No rebound or guarding. EXTREMITIES: Negative for clubbing, cyanosis, no edema. DERMATOLOGIC: No rashes. MUSCULOSKELETAL: No joint effusion. NEUROLOGIC: No change in exam. MEDICATIONS: Reviewed. LABORATORY DATA: Reviewed. ASSESSMENT AND PLAN: 1. End-stage renal disease. The patient is scheduled for dialysis today. We will dialyze for 3 irina rs 3k bath, calcium 2.5. The patient will be given Benadryl during and after dialysis. We will use a hypoallergenic filter. 2. Hypertensive urgency. Etiology is multifactorial secondary to end-stage renal disease, opiate wi thdrawal. Continue current blood pressure regimen. Continue IV labetalol. We will adjust medicatio ns as needed. 3. Anemia. Monitor hemoglobin and hematocrit levels. We will give Epogen as needed. 4. Mineral bone disorder, monitor calcium and phosphorus levels. Resume phosphate binders once the patient is tolerating p.o. 5. Opiate withdrawal. We will continue to monitor. 6. Hyperkalemia, resolved. 7. Right tibiofibular fracture. The patient is seen by orthopedist. Plan is for conservative care. Continue pain control. 8. Cellulitis. Continue current antibiotic therapy. 9. Diabetes. Continue current insulin regimen. 10. Persistent nausea and vomiting. Etiology is unclear, possible withdrawal versus gastroparesis. Continue medical management. The patient's NG tube is in place to intermittent suction. We will fo llow up with GI. The patient may require EGD. Continue proton pump inhibitor. Dictated By: JUJU MARTINEZ DO NR/NTS Conf#: [id number] DID#: [id number] CC: BLAYNE BLANTON MD; NAYAN WILLIS; VERITO GARCIA MD;*EndCC*
[2018-10-23] MEDS: PIPER-TAZO 2.25 GM (PMX) 50 ML IVPB SCH (09:11)
[2018-10-23] MEDS: SPIRONOLACTONE 25 MG TAB PO SCH ×2 (09:12→20:20)
[2018-10-23] MEDS: LABETALOL 200 MG TAB PO SCH ×2 (09:12→20:19)
[2018-10-23] MEDS: INSULIN GLARGINE [LANTus] (100 UNITS/ML) SYG SC SCH (09:37)
[2018-10-23] MEDS: INSULIN ASPART [NOVOLOG] 3 ML PEN SC SCH ×7 (09:37→21:00)
[2018-10-23] MEDS ORDERED: DIPHENHYDRAMINE 50 MG INJ ONE (09:55)
[2018-10-23] MEDS ORDERED: DIPHENHYDRAMINE 50 MG INJ IV ONE ×2 (10:00→14:00)
--- NOTE | 2018-10-23 11:34 | PN ---
Date/Time of Note Date/Time of Note DATE: 10/23/18 TIME: 11:30 Assessment/Plan VTE Prophylaxis Risk score (from Nsg)>0 risk: 12 SCD applied (from Ns): No SCD contraindicated: other Pharmacological prophylaxis: heparin Lines/Catheters IV Catheter Type (from Nrsg): Mid Line Urinary Cath still in place: No Assessment/Plan Hospital Course S: Patient having less nausea today, less output through the NG tube now. Seen by GI team yesterday. Presently undergoing dialysis, again out of the ICU now since yesterday evening. Awaiting small bowel follow-through and possible CT L and T-spine that was ordered 2 days ago. See by endocrinology team yesterday. Per nursing staff patient did take her p.o. blood pressure medicines this morning, and now has her leg brace in place. O: VS -see below PE: General: lying in bed, NG tube in place, legally blind HEENT: Atraumatic, normocephalic. Moist mucous membranes, clear oropharynx Neck: Supple with full range of motion. No rigidity or meningismus Chest: Right Tremayne cath Lungs: Clear to auscultation bilaterally no crackles rales or wheezing Heart: Normal S1-S2, Regular rhythm and rate. No murmur, S3, or S4 Abdomen: Soft , nontender, nondistended , bowel sounds are present. No guarding no rebound tenderness Extremities: Right lower extremity significant discoloration of the anterior rose, warm to touch, distal pulses palpable, no cyanosis noted Neurologic: No focal deficits Assessment/Plan: 28 yo woman with type I diabetes, ESRD on MWF dialysis, diabetic gastroparesis and multiple allergies presents with R tib/fib fracture. #Type I diabetes-sugars have been improved, but now in the 2 50-2 70 range, endocrinology team on the case. -Continue current insulin regimen, monitor sugars, follow endocrinology recommendations #Nausea/vomiting: Slightly improved today, has been on as needed Tigan and as needed higher doses of Zofran, likely secondary to opiate withdrawal versus diabetic gastroparesis- The patient reports several weeks of nausea and PO intolerance attributed to diabetic gastroparesis -Monitor, n.p.o. except meds for now, awaiting small bowel follow-through -Will discontinue NG tube today -Continue Zofran and Tigan antiemetics. -Consider erythromycin as well? # HTN urgency: Blood pressure improved overall since admission (earlier she did require nicardipine drip in the ICU 2 days ago), this morning was slightly elevated but patient did take her p.o. blood pressure medicines presently is getting dialysis. -Continue home labetalol, clonidine, and other home p.o. medications -Continue hydralazine as needed IV, as well as as needed IV labetalol #ESRD- Patient is anuric, normally gets dialysis 3 times a week as an outpatient - Dr. Spear consulted for routine dialysis #Right tib/fib fracture-orthopedics Dr. Babcock consulted -recommended for long leg brace with a dial lock - has been ordered and now in place. -For now keep limb immobile-continue leg brace that is now in place, ordered by orthopedic surgery team -Of note, on admission she was started on broad spectrum antibiotics for "cellulitis", although there is a small ulcer and a large ecchymosis: Will continue antibiotics until culture results return, low threshold to discontinue. #Mid back pain- Associated with fall, also with palpable tenderness and slight deformity of spine- No peripheral neuro findings concerning for cord compression or cauda equina -Monitor, follow-up results of CT T+L spine -likely will have this imaging study performed today -Follow-up further recommendations from pain management consult DVT: None GI: PPI IV twice daily Result Diagram: 10/23/18 0723 10/23/18 0626 Results 24hrs Laboratory Tests Test 10/22/18 17:05 10/22/18 20:34 10/22/18 22:16 10/23/18 02:08 Bedside Glucose 341 H 242 H 271 H 275 H Test 10/23/18 06:26 10/23/18 07:23 10/23/18 08:56 Sodium Level 142 Potassium Level 4.8 Chloride Level 100 Carbon Dioxide Level 17 L Anion Gap 25 H Blood Urea Nitrogen 57 H Creatinine 8.19 H Est Glomerular 6 L Filtrat Rate mL/min Glucose Level 279 H Calcium Level 8.7 Phosphorus Level 8.2 H Magnesium Level 2.7 H White Blood Count 9.0 # Red Blood Count 2.34 L Hemoglobin 7.2 L Hematocrit 22.1 L Mean Corpuscular 94.4 Volume Mean Corpuscular 30.8 Hemoglobin Mean Corpuscular 32.6 Hemoglobin Concent Red Cell 15.8 H Distribution Width Platelet Count 215 Mean Platelet Volume 10.7 H Immature 0.300 Granulocytes % Neutrophils % 83.9 H Lymphocytes % 4.3 L Monocytes % 8.7 Eosinophils % 2.4 Basophils % 0.4 Nucleated Red Blood 0.0 Cells % Immature 0.030 Granulocytes # Neutrophils # 7.5 Lymphocytes # 0.4 L Monocytes # 0.8 Eosinophils # 0.2 Basophils # 0.0 Nucleated Red Blood 0.0 Cells # Bedside Glucose 330 H Exam/Review of Systems Exam Vitals Vital Signs Date Temp Pulse Resp B/P (MAP) Pulse Ox O2 O2 Flow FiO2 Time Delivery Rate 10/23/18 97.6 90 20 214/70 99 11:23 (118) 10/23/18 Nasal 2.0 09:50 Cannula 10/22/18 21 08:28 Intake and Output 10/22/18 10/22/18 10/23/18 1515:00 23:00 07:00 IntakeIntake Total 266 ml 300 ml OutputOutput Total 250 ml 0 ml BalanceBalance 16 ml 300 ml Results Results 24hrs Laboratory Tests Test 10/22/18 17:05 10/22/18 20:34 10/22/18 22:16 10/23/18 02:08 Bedside Glucose 341 H 242 H 271 H 275 H Test 10/23/18 06:26 10/23/18 07:23 10/23/18 08:56 Sodium Level 142 Potassium Level 4.8 Chloride Level 100 Carbon Dioxide Level 17 L Anion Gap 25 H Blood Urea Nitrogen 57 H Creatinine 8.19 H Est Glomerular 6 L Filtrat Rate mL/min Glucose Level 279 H Calcium Level 8.7 Phosphorus Level 8.2 H Magnesium Level 2.7 H White Blood Count 9.0 # Red Blood Count 2.34 L Hemoglobin 7.2 L Hematocrit 22.1 L Mean Corpuscular 94.4 Volume Mean Corpuscular 30.8 Hemoglobin Mean Corpuscular 32.6 Hemoglobin Concent Red Cell 15.8 H Distribution Width Platelet Count 215 Mean Platelet Volume 10.7 H Immature 0.300 Granulocytes % Neutrophils % 83.9 H Lymphocytes % 4.3 L Monocytes % 8.7 Eosinophils % 2.4 Basophils % 0.4 Nucleated Red Blood 0.0 Cells % Immature 0.030 Granulocytes # Neutrophils # 7.5 Lymphocytes # 0.4 L Monocytes # 0.8 Eosinophils # 0.2 Basophils # 0.0 Nucleated Red Blood 0.0 Cells # Bedside Glucose 330 H Medications Medication Current Medications Miscellaneous Information (* Miscellaneous Pharmacy Order) HYPOGLYCEMIA TREATMENT HYPOGLYCEM PROTOCOL PRN XX .HYPOGLYCEMIA PROTOCOL; Start 10/20/18 at 00:00 Nitroglycerin (Nitroglycerin (Sl Tab) 0.4 Mg) 1 tab Q5M PRN SL CHEST PAIN Last administered on 10/20/18at 12:28; Admin Dose 1 TAB; Start 10/20/18 at 00:00 Acetaminophen (Tylenol Liquid) 650 mg Q6H PRN PO PAIN LEVEL 1-3 OR FEVER; Start 10/20/18 at 00:00 Docusate Sodium (Colace) 100 mg Q12H PRN PO CONSTIPATION; Start 10/20/18 at 00:00 Bisacodyl (Dulcolax) 5 mg DAILY PRN PO CONSTIPATION; Start 10/20/18 at 00:00 Vancomycin HCl (Vanco Iv Per Pharmacy) VANCOMYCIN PER PHARMACY PER PROTOCOL XX ; Start 10/20/18 at 01:30 Piperacillin Sod/ Tazobactam Sod 50 ml @ 100 mls/hr Q12 IVPB Last administered on 10/23/18at 09:11; Admin Dose 100 MLS/HR; Start 10/20/18 at 09:00 Acetaminophen/ Hydrocodone Bitart ([place] (5/325)) 1 tab Q4H PRN PO MODERATE PAIN LEVEL 4-6; Start 10/20/18 at 03:00 Clonidine HCl (Catapres-Tts 3 Patch) 2 patch Q7D TRANSDERM Last administered on 10/21/18at 10:19; Admin Dose 2 PATCH; Start 10/21/18 at 09:00 Diagnostic Test (Pha) (Accu-Chek) 1 ea 02 XX Last administered on 10/21/18at 02:29; Admin Dose 1 EA; Start 10/21/18 at 02:00 Miscellaneous Information 1 ea NOTE XX ; Start 10/20/18 at 10:30 Glucose (Glutose) 15 gm Q15M PRN PO DECREASED GLUCOSE; Start 10/20/18 at 10:30 Glucose (Glutose) 22.5 gm Q15M PRN PO DECREASED GLUCOSE Last administered on 10/20/18at 17:16; Admin Dose 22.5 GM; Start 10/20/18 at 10:30 Dextrose (D50w Syringe) 25 ml Q15M PRN IV DECREASED GLUCOSE Last administered on 10/20/18at 17:34; Admin Dose 25 ML; Start 10/20/18 at 10:30 Dextrose (D50w Syringe) 50 ml Q15M PRN IV DECREASED GLUCOSE; Start 10/20/18 at 10:30 Glucagon (Glucagen) 1 mg Q15M PRN IM DECREASED GLUCOSE; Start 10/20/18 at 10:30 Glucose (Glutose) 15 gm Q15M PRN BUCCAL DECREASED GLUCOSE; Start 10/20/18 at 10:30 Hydralazine HCl (Apresoline) 10 mg Q4H PRN IV SYS BP > 150 Last administered on 10/22/18at 21:10; Admin Dose 10 MG; Start 10/20/18 at 23:30 Hydralazine HCl (Apresoline) 50 mg TID PO Last administered on 10/23/18 09:12; Admin Dose 50 MG; Start 10/21/18 at 05:30 Heparin Sodium (Porcine) (Heparin (1000 Units/ml)) 3,700 unit AFTER DIALYSIS CATHETER Last administered on 10/21/18at 11:50; Admin Dose 3,700 UNIT; Start 10/21/18 at 08:00 Trimethobenzamide HCl (Tigan) 200 mg Q6H PRN IM NAUSEA AND/OR VOMITING Last administered on 10/21/18 18:21; Admin Dose 200 MG; Start 10/21/18 at 13:00 Calcium Carbonate (Ca Carbonate) 750 mg Q2H PRN PO GI; Start 10/21/18 at 15:00 Clonidine (Catapres) 0.4 mg BID PO Last administered on 10/23/18 09:13; Admin Dose 0.4 MG; Start 10/21/18 at 14:00 Hydromorphone HCl (Dilaudid) 2 mg Q4H PRN PO PAIN; Start 10/21/18 at 14:00 Labetalol HCl (Normodyne) 1,200 mg BID PO Last administered on 10/23/18 09:12; Admin Dose 1,200 MG; Start 10/21/18 at 14:00 Loperamide HCl (Imodium Cap) 2 mg TID PRN PO DIARRHEA; Start 10/21/18 at 14:00 Pantoprazole (Protonix Tab) 40 mg BID PO ; Start 10/21/18 at 14:00; Status Hold Spironolactone (Aldactone) 25 mg BID PO Last administered on 10/23/18 09:12; Admin Dose 25 MG; Start 10/21/18 at 21:00 Ondansetron HCl 8 mg/Sodium Chloride 54 ml @ 216 mls/hr Q4H PRN IV NAUSEA AND/OR VOMITING Last administered on 10/22/18 09:20; Admin Dose 216 MLS/HR; Start 10/21/18 at 14:30 Hydromorphone HCl (Dilaudid) 0.5 mg Q4H PRN IV SEVERE PAIN LEVEL 7-10 Last administered on 10/23/18 09:13; Admin Dose 0.5 MG; Start 10/21/18 at 16:00 Insulin Aspart (Novolog Insulin Pen) 2 unit WITH MEALS SC Last administered on 10/23/18 09:37; Admin Dose 2 UNIT; Start 10/22/18 at 07:35 Insulin Glargine (Lantus) 7 units DAILY@1000 SC Last administered on 10/23/18 09:37; Admin Dose 7 UNITS; Start 10/22/18 at 10:00 Insulin Aspart (Novolog Insulin Pen) NOVOLOG *CUSTOM* ALGORITHM AC MEALS AND BEDTIME SC Last administered on 10/23/18 09:37; Admin Dose 3 UNIT; Start 10/21/18 at 21:00 Lorazepam (Ativan) 0.5 mg Q4 PRN IV anxiety Last administered on 10/23/18 07:48; Admin Dose 0.5 MG; Start 10/22/18 at 00:00 Al Hydrox/Mg Hydrox/Simethicone (Mag-Al Plus) 30 ml Q6H PRN PO GASTROINTESTINAL UPSET; Start 10/22/18 at 01:30 Epoetin Vic-epbx (RETACRIT(esrd)) 10,000 unit MoWeFr@1700 SC ; Start 10/23/18 at 17:00 Insulin Human NPH (Humulin N) 4 unit DAILY@2200 SC Last administered on 10/22/18 22:17; Admin Dose 4 UNIT; Start 10/22/18 at 22:00 Labetalol HCl (Labetalol) 10 mg Q6H PRN IV ELEVATED BLOOD PRESSURE Last administered on 10/22/18 17:24; Admin Dose 10 MG; Start 10/22/18 at 11:00 Enalaprilat (Vasotec Iv) 1.25 mg Q6H PRN IV BLOOD PRESSURE SUPPORT; Start 10/22/18 at 11:00; Status Hold Pantoprazole (Protonix Iv) 40 mg BID@06,18 IV Last administered on 10/23/18at 05:55; Admin Dose 40 MG; Start 10/22/18 at 11:00 Levalbuterol (Xopenex Neb) 0.63 mg Q4H RESP THERAPY PRN HHN WHEEZING; Start 10/22/18 at 11:00 Methylnaltrexone [place] (Relistor) 12 mg Q48H SC Last administered on 10/22/18at 15:56; Admin Dose 12 MG; Start 10/22/18 at 15:30 Diphenhydramine HCl (Benadryl) 25 mg ONCE ONCE IV ; Start 10/23/18 at 14:00; Stop 10/23/18 at 14:01 NAYAN WILLIS Oct 23, 2018 11:34
--- NOTE | 2018-10-23 12:21 | PN ---
Date/Time of Note Date/Time of Note DATE: 10/23/18 TIME: 12:19 Assessment/Plan VTE Prophylaxis Risk score (from Nsg)>0 risk: 12 SCD applied (from Nsg): No SCD contraindicated: other (scds) Pharmacological prophylaxis: other (scds) Lines/Catheters IV Catheter Type (from Nrsg): Mid Line Urinary Cath still in place: No Assessment/Plan Hospital Course Summary Assessment and Plan: Assessment: Persistent nausea/vomiting -R/o 2/2 reduction in pain medication vs gastroparesis vs obstruction vs other Hx of gastroparesis Type I diabetes- with hyperglycemia HTN Normocytic anemia ESRD- on HD Right tib/fib fracture- followed by ortho Hx of - last EGD about 3-4 months ago Plan: SBFT- r/o obstruction- not completed-per radiology We will proceed with EGD 10/24/18 Continue Protonix/Zofran/Tigan - pending results will consider starting erythromycin if deemed necessary, as patient has an allergy to Reglan Further recommendation based on clinical course Patient seen in collaboration with Dr. augustine Subjective: Course reviewed with nursing staff Patient interviewed and examined All labs, imaging and other results reviewed Apparently n/v improved early this am, but has become worse throughout the day, enough that she requested to stop HD today SBFT - not completed per radiology , NGT back to suction with about 300 out thus far. PHYSICAL EXAMINATION: GENERAL: Well developed, alert & oriented x 3, lethargic SKIN: Dialysis catheter. EYES: Pupils equal reactive to light, no discharge. EARS/NOSE AND THROAT: Ears normal, nose normal NECK: Supple, no masses CHEST: Inspection within normal limits. CARDIOVASCULAR: Heart: Regular rate and rhythm RESPIRATORY: Lungs clear to auscultation GASTROINTESTINAL AND LIVER: Abdomen: Soft, upper tenderness, non-distended, no hernias, no masses, no organomegaly, no ascites, no guarding, no rebound tenderness, normoactive bowel sounds. Rectal: Deferred. EXTREMITIES: No cyanosis, clubbing or edema. Result Diagram: 10/23/18 0723 10/23/18 0626 Results 24hrs Laboratory Tests Test 10/22/18 17:05 10/22/18 20:34 10/22/18 22:16 10/23/18 02:08 Bedside Glucose 341 H 242 H 271 H 275 H Test 10/23/18 06:26 10/23/18 07:23 10/23/18 08:56 Sodium Level 142 Potassium Level 4.8 Chloride Level 100 Carbon Dioxide Level 17 L Anion Gap 25 H Blood Urea Nitrogen 57 H Creatinine 8.19 H Est Glomerular 6 L Filtrat Rate mL/min Glucose Level 279 H Calcium Level 8.7 Phosphorus Level 8.2 H Magnesium Level 2.7 H White Blood Count 9.0 # Red Blood Count 2.34 L Hemoglobin 7.2 L Hematocrit 22.1 L Mean Corpuscular 94.4 Volume Mean Corpuscular 30.8 Hemoglobin Mean Corpuscular 32.6 Hemoglobin Concent Red Cell 15.8 H Distribution Width Platelet Count 215 Mean Platelet Volume 10.7 H Immature 0.300 Granulocytes % Neutrophils % 83.9 H Lymphocytes % 4.3 L Monocytes % 8.7 Eosinophils % 2.4 Basophils % 0.4 Nucleated Red Blood 0.0 Cells % Immature 0.030 Granulocytes # Neutrophils # 7.5 Lymphocytes # 0.4 L Monocytes # 0.8 Eosinophils # 0.2 Basophils # 0.0 Nucleated Red Blood 0.0 Cells # Bedside Glucose 330 H Exam/Review of Systems Exam Vitals Vital Signs Date Temp Pulse Resp B/P (MAP) Pulse Ox O2 O2 Flow FiO2 Time Delivery Rate 10/23/18 97.6 90 20 214/70 99 11:23 (118) 10/23/18 Nasal 2.0 09:50 Cannula 10/22/18 21 08:28 Intake and Output 10/22/18 10/22/18 10/23/18 1515:00 23:00 07:00 IntakeIntake Total 266 ml 300 ml OutputOutput Total 250 ml 0 ml BalanceBalance 16 ml 300 ml Results Results 24hrs Laboratory Tests Test 10/22/18 17:05 10/22/18 20:34 10/22/18 22:16 10/23/18 02:08 Bedside Glucose 341 H 242 H 271 H 275 H Test 10/23/18 06:26 10/23/18 07:23 10/23/18 08:56 Sodium Level 142 Potassium Level 4.8 Chloride Level 100 Carbon Dioxide Level 17 L Anion Gap 25 H Blood Urea Nitrogen 57 H Creatinine 8.19 H Est Glomerular 6 L Filtrat Rate mL/min Glucose Level 279 H Calcium Level 8.7 Phosphorus Level 8.2 H Magnesium Level 2.7 H White Blood Count 9.0 # Red Blood Count 2.34 L Hemoglobin 7.2 L Hematocrit 22.1 L Mean Corpuscular 94.4 Volume Mean Corpuscular 30.8 Hemoglobin Mean Corpuscular 32.6 Hemoglobin Concent Red Cell 15.8 H Distribution Width Platelet Count 215 Mean Platelet Volume 10.7 H Immature 0.300 Granulocytes % Neutrophils % 83.9 H Lymphocytes % 4.3 L Monocytes % 8.7 Eosinophils % 2.4 Basophils % 0.4 Nucleated Red Blood 0.0 Cells % Immature 0.030 Granulocytes # Neutrophils # 7.5 Lymphocytes # 0.4 L Monocytes # 0.8 Eosinophils # 0.2 Basophils # 0.0 Nucleated Red Blood 0.0 Cells # Bedside Glucose 330 H Medications Medication Current Medications Miscellaneous Information (* Miscellaneous Pharmacy Order) HYPOGLYCEMIA TREATMENT HYPOGLYCEM PROTOCOL PRN XX .HYPOGLYCEMIA PROTOCOL; Start 10/20/18 at 00:00 Nitroglycerin (Nitroglycerin (Sl Tab) 0.4 Mg) 1 tab Q5M PRN SL CHEST PAIN Last administered on 10/20/18at 12:28; Admin Dose 1 TAB; Start 10/20/18 at 00:00 Acetaminophen (Tylenol Liquid) 650 mg Q6H PRN PO PAIN LEVEL 1-3 OR FEVER; Start 10/20/18 at 00:00 Docusate Sodium (Colace) 100 mg Q12H PRN PO CONSTIPATION; Start 10/20/18 at 00:00 Bisacodyl (Dulcolax) 5 mg DAILY PRN PO CONSTIPATION; Start 10/20/18 at 00:00 Vancomycin HCl (Vanco Iv Per Pharmacy) VANCOMYCIN PER PHARMACY PER PROTOCOL XX ; Start 10/20/18 at 01:30 Piperacillin Sod/ Tazobactam Sod 50 ml @ 100 mls/hr Q12 IVPB Last administered on 10/23/18at 09:11; Admin Dose 100 MLS/HR; Start 10/20/18 at 09:00 Acetaminophen/ Hydrocodone Bitart ([place] (5/325)) 1 tab Q4H PRN PO MODERATE PAIN LEVEL 4-6; Start 10/20/18 at 03:00 Clonidine HCl (Catapres-Tts 3 Patch) 2 patch Q7D TRANSDERM Last administered on 10/21/18at 10:19; Admin Dose 2 PATCH; Start 10/21/18 at 09:00 Diagnostic Test (Pha) (Accu-Chek) 1 ea 02 XX Last administered on 10/21/18at 02:29; Admin Dose 1 EA; Start 10/21/18 at 02:00 Miscellaneous Information 1 ea NOTE XX ; Start 10/20/18 at 10:30 Glucose (Glutose) 15 gm Q15M PRN PO DECREASED GLUCOSE; Start 10/20/18 at 10:30 Glucose (Glutose) 22.5 gm Q15M PRN PO DECREASED GLUCOSE Last administered on 10/20/18at 17:16; Admin Dose 22.5 GM; Start 10/20/18 at 10:30 Dextrose (D50w Syringe) 25 ml Q15M PRN IV DECREASED GLUCOSE Last administered on 10/20/18at 17:34; Admin Dose 25 ML; Start 10/20/18 at 10:30 Dextrose (D50w Syringe) 50 ml Q15M PRN IV DECREASED GLUCOSE; Start 10/20/18 at 10:30 Glucagon (Glucagen) 1 mg Q15M PRN IM DECREASED GLUCOSE; Start 10/20/18 at 10:30 Glucose (Glutose) 15 gm Q15M PRN BUCCAL DECREASED GLUCOSE; Start 10/20/18 at 10:30 Hydralazine HCl (Apresoline) 10 mg Q4H PRN IV SYS BP > 150 Last administered on 10/22/18at 21:10; Admin Dose 10 MG; Start 10/20/18 at 23:30 Hydralazine HCl (Apresoline) 50 mg TID PO Last administered on 10/23/18 09:12; Admin Dose 50 MG; Start 10/21/18 at 05:30 Heparin Sodium (Porcine) (Heparin (1000 Units/ml)) 3,700 unit AFTER DIALYSIS CATHETER Last administered on 10/21/18at 11:50; Admin Dose 3,700 UNIT; Start 10/21/18 at 08:00 Trimethobenzamide HCl (Tigan) 200 mg Q6H PRN IM NAUSEA AND/OR VOMITING Last administered on 10/21/18 18:21; Admin Dose 200 MG; Start 10/21/18 at 13:00 Calcium Carbonate (Ca Carbonate) 750 mg Q2H PRN PO GI; Start 10/21/18 at 15:00 Clonidine (Catapres) 0.4 mg BID PO Last administered on 10/23/18 09:13; Admin Dose 0.4 MG; Start 10/21/18 at 14:00 Hydromorphone HCl (Dilaudid) 2 mg Q4H PRN PO PAIN; Start 10/21/18 at 14:00 Labetalol HCl (Normodyne) 1,200 mg BID PO Last administered on 10/23/18 09:12; Admin Dose 1,200 MG; Start 10/21/18 at 14:00 Loperamide HCl (Imodium Cap) 2 mg TID PRN PO DIARRHEA; Start 10/21/18 at 14:00 Pantoprazole (Protonix Tab) 40 mg BID PO ; Start 10/21/18 at 14:00; Status Hold Spironolactone (Aldactone) 25 mg BID PO Last administered on 10/23/18 09:12; Admin Dose 25 MG; Start 10/21/18 at 21:00 Ondansetron HCl 8 mg/Sodium Chloride 54 ml @ 216 mls/hr Q4H PRN IV NAUSEA AND/OR VOMITING Last administered on 10/22/18 09:20; Admin Dose 216 MLS/HR; Start 10/21/18 at 14:30 Hydromorphone HCl (Dilaudid) 0.5 mg Q4H PRN IV SEVERE PAIN LEVEL 7-10 Last administered on 10/23/18 09:13; Admin Dose 0.5 MG; Start 10/21/18 at 16:00 Insulin Aspart (Novolog Insulin Pen) 2 unit WITH MEALS SC Last administered on 10/23/18 11:48; Admin Dose 2 UNIT; Start 10/22/18 at 07:35 Insulin Glargine (Lantus) 7 units DAILY@1000 SC Last administered on 10/23/18 09:37; Admin Dose 7 UNITS; Start 10/22/18 at 10:00 Insulin Aspart (Novolog Insulin Pen) NOVOLOG *CUSTOM* ALGORITHM AC MEALS AND BEDTIME SC Last administered on 10/23/18 09:37; Admin Dose 3 UNIT; Start 10/21/18 at 21:00 Lorazepam (Ativan) 0.5 mg Q4 PRN IV anxiety Last administered on 10/23/18 07:48; Admin Dose 0.5 MG; Start 10/22/18 at 00:00 Al Hydrox/Mg Hydrox/Simethicone (Mag-Al Plus) 30 ml Q6H PRN PO GASTROINTESTINAL UPSET; Start 10/22/18 at 01:30 Epoetin Vic-epbx (RETACRIT(esrd)) 10,000 unit MoWeFr@1700 SC ; Start 10/23/18 at 17:00 Insulin Human NPH (Humulin N) 4 unit DAILY@2200 SC Last administered on 10/22/18at 22:17; Admin Dose 4 UNIT; Start 10/22/18 at 22:00 Labetalol HCl (Labetalol) 10 mg Q6H PRN IV ELEVATED BLOOD PRESSURE Last administered on 10/22/18at 17:24; Admin Dose 10 MG; Start 10/22/18 at 11:00 Enalaprilat (Vasotec Iv) 1.25 mg Q6H PRN IV BLOOD PRESSURE SUPPORT; Start 10/22/18 at 11:00; Status Hold Pantoprazole (Protonix Iv) 40 mg BID@06,18 IV Last administered on 10/23/18at 05:55; Admin Dose 40 MG; Start 10/22/18 at 11:00 Levalbuterol (Xopenex Neb) 0.63 mg Q4H RESP THERAPY PRN HHN WHEEZING; Start 10/22/18 at 11:00 Methylnaltrexone [place] (Relistor) 12 mg Q48H SC Last administered on 10/22at 15:56; Admin Dose 12 MG; Start 10/22/18 at 15:30 Diphenhydramine HCl (Benadryl) 25 mg ONCE ONCE IV Last administered on 10/23/18at 11:36; Admin Dose 25 MG; Start 10/23/18 at 14:00; Stop 10/23/18 at 14:01 KAYLA BARILLAS Oct 23, 2018 12:21
[2018-10-23] MEDS: HEPARIN 1000 UNITS/ML 10 ML INJ CATHETER SCH (12:23)
[2018-10-23] MEDS: ONDANSETRON INJ 8 MG in SOD CHLORIDE 0.9% 50 ML IV PRN (12:31)
[2018-10-23] MEDS ORDERED: INSULIN GLARGINE [LANTus] (100 UNITS/ML) SYG SC STA (13:05)
--- NOTE | 2018-10-23 14:06 | CONS ---
Assessment/Plan Assessment/Plan Hospital Course (Demo Recall) 28-year-old female with longstanding uncontrolled type 1 DM diagnosed at age 6 complicated by retinopathy, neuropathy and ESRD who presented to the emergency department for evaluation of nausea and vomiting for the past few days. Endocrine on board for management of diabetes mellitus Type 1 DM -will discontinue NPH and increase Lantus from 7 to 10 units daily, given persistent morning hyperglycemia. -continue novolog 2 units QAC (now that she's NPO, it will be Q8H) -continue custom sliding scale novolog QAC/Q8H when FS >180 -check FS AC and HS or Q8H since NPO -will monitor FS and adjust regimen accordingly Consultation Date/Type/Reason Admit Date/Time Oct 19, 2018 at 23:42 Initial Consult Date Requesting Provider: VERITO GARCIA Date/Time of Note DATE: 10/23/18 TIME: 14:05 24 HR Interval Summary Free Text/Dictation Patient seen and examined at bedside, she still has nausea and vomiting. GI consulted with plan for small bowel series/CT scan and possible EGD for further evaluation of vomiting. Exam/Review of Systems Exam Vitals Vital Signs Date Temp Pulse Resp B/P (MAP) Pulse Ox O2 O2 Flow FiO2 Time Delivery Rate 10/23/18 88 12:18 10/23/18 97.6 20 214/70 99 11:23 (118) 10/23/18 Nasal 2.0 09:50 Cannula 10/22/18 21 08:28 Intake and Output 10/22/18 10/22/18 10/23/18 1414:59 22:59 06:59 IntakeIntake Total 266 ml 300 ml OutputOutput Total 250 ml 0 ml BalanceBalance 16 ml 300 ml Exam General: Appears more comfortable today. Skin appropriate for ethnicity Eye: Extraocular movements are intact, Normal conjunctiva. HENT: Normocephalic, atraumatic. NGT intact Respiratory: Respirations are non-labored, Breath sounds are equal, Symmetrical chest wall expansion. Cardiovascular: S1, S2. Tachycardic Gastrointestinal: Soft, Non-tender to palpation, Non-distended, Decreased bowel sounds. Integumentary: Warm to touch. Bruise on right lower extremity Neurologic: Alert, Oriented. Cognition and Speech: Functional cognition intact. Psychiatric: Cooperative, Appropriate mood & affect. Results Result Diagram: 10/23/18 0723 10/23/18 0626 Results 24hrs Laboratory Tests Test 10/22/18 17:05 10/22/18 20:34 10/22/18 22:16 10/23/18 02:08 Bedside Glucose 341 H 242 H 271 H 275 H Test 10/23/18 06:26 10/23/18 07:23 10/23/18 08:56 10/23/18 11:43 Sodium Level 142 Potassium Level 4.8 Chloride Level 100 Carbon Dioxide Level 17 L Anion Gap 25 H Blood Urea Nitrogen 57 H Creatinine 8.19 H Est Glomerular 6 L Filtrat Rate mL/min Glucose Level 279 H Calcium Level 8.7 Phosphorus Level 8.2 H Magnesium Level 2.7 H White Blood Count 9.0 # Red Blood Count 2.34 L Hemoglobin 7.2 L Hematocrit 22.1 L Mean Corpuscular 94.4 Volume Mean Corpuscular 30.8 Hemoglobin Mean Corpuscular 32.6 Hemoglobin Concent Red Cell 15.8 H Distribution Width Platelet Count 215 Mean Platelet Volume 10.7 H Immature 0.300 Granulocytes % Neutrophils % 83.9 H Lymphocytes % 4.3 L Monocytes % 8.7 Eosinophils % 2.4 Basophils % 0.4 Nucleated Red Blood 0.0 Cells % Immature 0.030 Granulocytes # Neutrophils # 7.5 Lymphocytes # 0.4 L Monocytes # 0.8 Eosinophils # 0.2 Basophils # 0.0 Nucleated Red Blood 0.0 Cells # Bedside Glucose 330 H 154 Medications Medication Current Medications Miscellaneous Information (* Miscellaneous Pharmacy Order) HYPOGLYCEMIA TREATMENT HYPOGLYCEM PROTOCOL PRN XX .HYPOGLYCEMIA PROTOCOL; Start 10/20/18 at 00:00 Nitroglycerin (Nitroglycerin (Sl Tab) 0.4 Mg) 1 tab Q5M PRN SL CHEST PAIN Last administered on 10/20/18at 12:28; Admin Dose 1 TAB; Start 10/20/18 at 00:00 Acetaminophen (Tylenol Liquid) 650 mg Q6H PRN PO PAIN LEVEL 1-3 OR FEVER; Start 10/20/18 at 00:00 Docusate Sodium (Colace) 100 mg Q12H PRN PO CONSTIPATION; Start 10/20/18 at 00:00 Bisacodyl (Dulcolax) 5 mg DAILY PRN PO CONSTIPATION; Start 10/20/18 at 00:00 Vancomycin HCl (Vanco Iv Per Pharmacy) VANCOMYCIN PER PHARMACY PER PROTOCOL XX ; Start 10/20/18 at 01:30 Piperacillin Sod/ Tazobactam Sod 50 ml @ 100 mls/hr Q12 IVPB Last administered on 10/23/18at 09:11; Admin Dose 100 MLS/HR; Start 10/20/18 at 09:00 Acetaminophen/ Hydrocodone Bitart ([place] (5/325)) 1 tab Q4H PRN PO MODERATE PAIN LEVEL 4-6; Start 10/20/18 at 03:00 Clonidine HCl (Catapres-Tts 3 Patch) 2 patch Q7D TRANSDERM Last administered on 10/21/18at 10:19; Admin Dose 2 PATCH; Start 10/21/18 at 09:00 Diagnostic Test (Pha) (Accu-Chek) 1 ea 02 XX Last administered on 10/21/18at 02:29; Admin Dose 1 EA; Start 10/21/18 at 02:00 Miscellaneous Information 1 ea NOTE XX ; Start 10/20/18 at 10:30 Glucose (Glutose) 15 gm Q15M PRN PO DECREASED GLUCOSE; Start 10/20/18 at 10:30 Glucose (Glutose) 22.5 gm Q15M PRN PO DECREASED GLUCOSE Last administered on 10/20/18at 17:16; Admin Dose 22.5 GM; Start 10/20/18 at 10:30 Dextrose (D50w Syringe) 25 ml Q15M PRN IV DECREASED GLUCOSE Last administered on 10/20/18at 17:34; Admin Dose 25 ML; Start 10/20/18 at 10:30 Dextrose (D50w Syringe) 50 ml Q15M PRN IV DECREASED GLUCOSE; Start 10/20/18 at 10:30 Glucagon (Glucagen) 1 mg Q15M PRN IM DECREASED GLUCOSE; Start 10/20/18 at 10:30 Glucose (Glutose) 15 gm Q15M PRN BUCCAL DECREASED GLUCOSE; Start 10/20/18 at 10:30 Hydralazine HCl (Apresoline) 10 mg Q4H PRN IV SYS BP > 150 Last administered on 10/22/18at 21:10; Admin Dose 10 MG; Start 10/20/18 at 23:30 Hydralazine HCl (Apresoline) 50 mg TID PO Last administered on 10/23/18at 09:12; Admin Dose 50 MG; Start 10/21/18 at 05:30 Heparin Sodium (Porcine) (Heparin (1000 Units/ml)) 3,700 unit AFTER DIALYSIS CATHETER Last administered on 10/23/18 12:23; Admin Dose 3,700 UNIT; Start 10/21/18 at 08:00 Trimethobenzamide HCl (Tigan) 200 mg Q6H PRN IM NAUSEA AND/OR VOMITING Last administered on 10/21/18 18:21; Admin Dose 200 MG; Start 10/21/18 at 13:00 Calcium Carbonate (Ca Carbonate) 750 mg Q2H PRN PO GI; Start 10/21/18 at 15:00 Clonidine (Catapres) 0.4 mg BID PO Last administered on 10/23/18 09:13; Admin Dose 0.4 MG; Start 10/21/18 at 14:00 Hydromorphone HCl (Dilaudid) 2 mg Q4H PRN PO PAIN; Start 10/21/18 at 14:00 Labetalol HCl (Normodyne) 1,200 mg BID PO Last administered on 10/23/18 09:12; Admin Dose 1,200 MG; Start 10/21/18 at 14:00 Loperamide HCl (Imodium Cap) 2 mg TID PRN PO DIARRHEA; Start 10/21/18 at 14:00 Pantoprazole (Protonix Tab) 40 mg BID PO ; Start 10/21/18 at 14:00; Status Hold Spironolactone (Aldactone) 25 mg BID PO Last administered on 10/23/18 09:12; Admin Dose 25 MG; Start 10/21/18 at 21:00 Ondansetron HCl 8 mg/Sodium Chloride 54 ml @ 216 mls/hr Q4H PRN IV NAUSEA AND/OR VOMITING Last administered on 10/23/18 12:31; Admin Dose 216 MLS/HR; Start 10/21/18 at 14:30 Hydromorphone HCl (Dilaudid) 0.5 mg Q4H PRN IV SEVERE PAIN LEVEL 7-10 Last administered on 10/23/18 09:13; Admin Dose 0.5 MG; Start 10/21/18 at 16:00 Insulin Aspart (Novolog Insulin Pen) 2 unit WITH MEALS SC Last administered on 10/23/18 11:48; Admin Dose 2 UNIT; Start 10/22/18 at 07:35 Insulin Glargine (Lantus) 7 units DAILY@1000 SC Last administered on 10/23/18 09:37; Admin Dose 7 UNITS; Start 10/22/18 at 10:00 Insulin Aspart (Novolog Insulin Pen) NOVOLOG *CUSTOM* ALGORITHM AC MEALS AND BEDTIME SC Last administered on 10/23/18 09:37; Admin Dose 3 UNIT; Start 10/21/18 at 21:00 Lorazepam (Ativan) 0.5 mg Q4 PRN IV anxiety Last administered on 10/23/18 12:24; Admin Dose 0.5 MG; Start 10/22/18 at 00:00 Al Hydrox/Mg Hydrox/Simethicone (Mag-Al Plus) 30 ml Q6H PRN PO GASTROINTESTINAL UPSET; Start 10/22/18 at 01:30 Epoetin Vic-epbx (RETACRIT(esrd)) 10,000 unit MoWeFr@1700 SC ; Start 10/23/18 at 17:00 Insulin Human NPH (Humulin N) 4 unit DAILY@2200 SC Last administered on 10/22/18at 22:17; Admin Dose 4 UNIT; Start 10/22/18 at 22:00 Labetalol HCl (Labetalol) 10 mg Q6H PRN IV ELEVATED BLOOD PRESSURE Last administered on 10/22/18 17:24; Admin Dose 10 MG; Start 10/22/18 at 11:00 Enalaprilat (Vasotec Iv) 1.25 mg Q6H PRN IV BLOOD PRESSURE SUPPORT; Start 10/22/18 at 11:00; Status Hold Pantoprazole (Protonix Iv) 40 mg BID@06,18 IV Last administered on 10/23/18at 05:55; Admin Dose 40 MG; Start 10/22/18 at 11:00 Levalbuterol (Xopenex Neb) 0.63 mg Q4H RESP THERAPY PRN HHN WHEEZING; Start 10/22/18 at 11:00 Methylnaltrexone [place] (Relistor) 12 mg Q48H SC Last administered on 10/22/18at 15:56; Admin Dose 12 MG; Start 10/22/18 at 15:30 Diphenhydramine HCl (Benadryl) 25 mg ONCE ONCE IV Last administered on 4/24/19at 11:36; Admin Dose 25 MG; Start 10/23/18 at 14:00; Stop 10/23/18 at 14:01 RAHEL FAJARDO MD Oct 23, 2018 14:06
[2018-10-23] MEDS ORDERED: IOHEXOL 300MG/ML 150 ML BTL ONE (15:02)
--- NOTE | 2018-10-23 15:38 | CONS ---
Assessment/Plan Assessment/Plan Hospital Course (Demo Recall) No acute changes, looks comfortable, afebrile Indwelling: Right chest permacath Microbiology: Blood cultures negative since admission MRSA swab negative Chest x-ray on admission revealed no acute cardiopulmonary disease. Right lower extremity CT revealed soft tissue swelling surrounding community it slightly impacted fracture of the proximal meet DF pieces of the tibia and fibula. Knee joint fluid extending to the suprapatellar bursa Extremity venous study revealed no DVT of the right lower extremity Antimicrobials: Zosyn and vancomycin Allergy: Clindamycin Physical examination: This is a chronically ill-appearing middle-aged woman who is in no distress. Head atraumatic normocephalic sclera nonicteric vehicle mucosa dry neck is supple chest rise symmetrical breath sounds diminished bases. Heart: S1-S2. Abdomen distended soft, bowel sounds present. Extremities with right lower extremity significant erythema edema and bruising Assessment: 1. Right lower extremity cellulitis/fracture 2. Uncontrolled hypertension 3. Diabetes 4. End-stage renal disease, hemodialysis dependent Plan: Remains stable, dc Zosyn, continue Vanco, painn management, HD per renal. Per [place] rec-s==> conservative nonsurgical treatment should be tried first with the immobilization of the right lower extremity in a long leg brace with a dial lock Consultation Date/Type/Reason Admit Date/Time Oct 19, 2018 at 23:42 Initial Consult Date Type of Consult id Requesting Provider: VERITO GARCIA Date/Time of Note DATE: 10/23/18 TIME: 15:36 Exam/Review of Systems Exam Vitals Vital Signs Date Temp Pulse Resp B/P (MAP) Pulse Ox O2 O2 Flow FiO2 Time Delivery Rate 10/23/18 87 18 168/79 99 Nasal 2.0 12:30 (108) Cannula 10/23/18 97.6 11:23 10/22/18 21 08:28 Intake and Output 10/22/18 10/22/18 10/23/18 1515:00 23:00 07:00 IntakeIntake Total 266 ml 300 ml OutputOutput Total 250 ml 0 ml BalanceBalance 16 ml 300 ml Results Result Diagram: 10/23/18 1358 10/23/18 0626 Results 24hrs Laboratory Tests Test 10/22/18 17:05 10/22/18 20:34 10/22/18 22:16 10/23/18 02:08 Bedside Glucose 341 H 242 H 271 H 275 H Test 10/23/18 06:26 10/23/18 07:23 10/23/18 08:56 10/23/18 11:43 Sodium Level 142 Potassium Level 4.8 Chloride Level 100 Carbon Dioxide Level 17 L Anion Gap 25 H Blood Urea Nitrogen 57 H Creatinine 8.19 H Est Glomerular 6 L Filtrat Rate mL/min Glucose Level 279 H Calcium Level 8.7 Phosphorus Level 8.2 H Magnesium Level 2.7 H White Blood Count 9.0 # Red Blood Count 2.34 L Hemoglobin 7.2 L Hematocrit 22.1 L Mean Corpuscular 94.4 Volume Mean Corpuscular 30.8 Hemoglobin Mean Corpuscular 32.6 Hemoglobin Concent Red Cell 15.8 H Distribution Width Platelet Count 215 Mean Platelet Volume 10.7 H Immature 0.300 Granulocytes % Neutrophils % 83.9 H Lymphocytes % 4.3 L Monocytes % 8.7 Eosinophils % 2.4 Basophils % 0.4 Nucleated Red Blood 0.0 Cells % Immature 0.030 Granulocytes # Neutrophils # 7.5 Lymphocytes # 0.4 L Monocytes # 0.8 Eosinophils # 0.2 Basophils # 0.0 Nucleated Red Blood 0.0 Cells # Bedside Glucose 330 H 154 Test 10/23/18 13:58 10/23/18 14:31 Hemoglobin 7.0 L Hematocrit 21.8 L Bedside Glucose 149 Medications Medication Current Medications Miscellaneous Information (* Miscellaneous Pharmacy Order) HYPOGLYCEMIA TREATMENT HYPOGLYCEM PROTOCOL PRN XX .HYPOGLYCEMIA PROTOCOL; Start 10/20/18 at 00:00 Nitroglycerin (Nitroglycerin (Sl Tab) 0.4 Mg) 1 tab Q5M PRN SL CHEST PAIN Last administered on 10/20/18at 12:28; Admin Dose 1 TAB; Start 10/20/18 at 00:00 Acetaminophen (Tylenol Liquid) 650 mg Q6H PRN PO PAIN LEVEL 1-3 OR FEVER; Start 10/20/18 at 00:00 Docusate Sodium (Colace) 100 mg Q12H PRN PO CONSTIPATION; Start 10/20/18 at 00:00 Bisacodyl (Dulcolax) 5 mg DAILY PRN PO CONSTIPATION; Start 10/20/18 at 00:00 Vancomycin HCl (Vanco Iv Per Pharmacy) VANCOMYCIN PER PHARMACY PER PROTOCOL XX ; Start 10/20/18 at 01:30 Piperacillin Sod/ Tazobactam Sod 50 ml @ 100 mls/hr Q12 IVPB Last administered on 10/23/18at 09:11; Admin Dose 100 MLS/HR; Start 10/20/18 at 09:00 Acetaminophen/ Hydrocodone Bitart ([place] (5/325)) 1 tab Q4H PRN PO MODERATE PAIN LEVEL 4-6; Start 10/20/18 at 03:00 Clonidine HCl (Catapres-Tts 3 Patch) 2 patch Q7D TRANSDERM Last administered on 10/21/18at 10:19; Admin Dose 2 PATCH; Start 10/21/18 at 09:00 Diagnostic Test (Pha) (Accu-Chek) 1 ea 02 XX Last administered on 10/21/18at 02:29; Admin Dose 1 EA; Start 10/21/18 at 02:00 Miscellaneous Information 1 ea NOTE XX ; Start 10/20/18 at 10:30 Glucose (Glutose) 15 gm Q15M PRN PO DECREASED GLUCOSE; Start 10/20/18 at 10:30 Glucose (Glutose) 22.5 gm Q15M PRN PO DECREASED GLUCOSE Last administered on 10/20/18at 17:16; Admin Dose 22.5 GM; Start 10/20/18 at 10:30 Dextrose (D50w Syringe) 25 ml Q15M PRN IV DECREASED GLUCOSE Last administered on 10/20/18at 17:34; Admin Dose 25 ML; Start 10/20/18 at 10:30 Dextrose (D50w Syringe) 50 ml Q15M PRN IV DECREASED GLUCOSE; Start 10/20/18 at 10:30 Glucagon (Glucagen) 1 mg Q15M PRN IM DECREASED GLUCOSE; Start 10/20/18 at 10:30 Glucose (Glutose) 15 gm Q15M PRN BUCCAL DECREASED GLUCOSE; Start 10/20/18 at 10:30 Hydralazine HCl (Apresoline) 10 mg Q4H PRN IV SYS BP > 150 Last administered on 10/22/18at 21:10; Admin Dose 10 MG; Start 10/20/18 at 23:30 Hydralazine HCl (Apresoline) 50 mg TID PO Last administered on 10/23/18at 13:30; Admin Dose 50 MG; Start 10/21/18 at 05:30 Heparin Sodium (Porcine) (Heparin (1000 Units/ml)) 3,700 unit AFTER DIALYSIS CATHETER Last administered on 10/23/18 12:23; Admin Dose 3,700 UNIT; Start 10/21/18 at 08:00 Trimethobenzamide HCl (Tigan) 200 mg Q6H PRN IM NAUSEA AND/OR VOMITING Last administered on 10/21/18 18:21; Admin Dose 200 MG; Start 10/21/18 at 13:00 Calcium Carbonate (Ca Carbonate) 750 mg Q2H PRN PO GI; Start 10/21/18 at 15:00 Clonidine (Catapres) 0.4 mg BID PO Last administered on 10/23/18 09:13; Admin Dose 0.4 MG; Start 10/21/18 at 14:00 Hydromorphone HCl (Dilaudid) 2 mg Q4H PRN PO PAIN; Start 10/21/18 at 14:00 Labetalol HCl (Normodyne) 1,200 mg BID PO Last administered on 10/23/18 09:12; Admin Dose 1,200 MG; Start 10/21/18 at 14:00 Loperamide HCl (Imodium Cap) 2 mg TID PRN PO DIARRHEA; Start 10/21/18 at 14:00 Pantoprazole (Protonix Tab) 40 mg BID PO ; Start 10/21/18 at 14:00; Status Hold Spironolactone (Aldactone) 25 mg BID PO Last administered on 10/23/18 09:12; Admin Dose 25 MG; Start 10/21/18 at 21:00 Ondansetron HCl 8 mg/Sodium Chloride 54 ml @ 216 mls/hr Q4H PRN IV NAUSEA AND/OR VOMITING Last administered on 10/23/18 12:31; Admin Dose 216 MLS/HR; Start 10/21/18 at 14:30 Hydromorphone HCl (Dilaudid) 0.5 mg Q4H PRN IV SEVERE PAIN LEVEL 7-10 Last administered on 10/23/18 13:24; Admin Dose 0.5 MG; Start 10/21/18 at 16:00 Insulin Aspart (Novolog Insulin Pen) 2 unit WITH MEALS SC Last administered on 10/23/18 11:48; Admin Dose 2 UNIT; Start 10/22/18 at 07:35 Insulin Aspart (Novolog Insulin Pen) NOVOLOG *CUSTOM* ALGORITHM AC MEALS AND BEDTIME SC Last administered on 10/23/18 09:37; Admin Dose 3 UNIT; Start 10/21/18 at 21:00 Lorazepam (Ativan) 0.5 mg Q4 PRN IV anxiety Last administered on 10/23/18 12:24; Admin Dose 0.5 MG; Start 10/22/18 at 00:00 Al Hydrox/Mg Hydrox/Simethicone (Mag-Al Plus) 30 ml Q6H PRN PO GASTROINTESTINAL UPSET; Start 10/22/18 at 01:30 Epoetin Vic-epbx (RETACRIT(esrd)) 10,000 unit MoWeFr@1700 SC ; Start 10/23/18 at 17:00 Labetalol HCl (Labetalol) 10 mg Q6H PRN IV ELEVATED BLOOD PRESSURE Last administered on 10/22/18at 17:24; Admin Dose 10 MG; Start 10/22/18 at 11:00 Enalaprilat (Vasotec Iv) 1.25 mg Q6H PRN IV BLOOD PRESSURE SUPPORT; Start 10/22/18 at 11:00; Status Hold Pantoprazole (Protonix Iv) 40 mg BID@06,18 IV Last administered on 10/23/18 05:55; Admin Dose 40 MG; Start 10/22/18 at 11:00 Levalbuterol (Xopenex Neb) 0.63 mg Q4H RESP THERAPY PRN HHN WHEEZING; Start 10/22/18 at 11:00 Methylnaltrexone [place] (Relistor) 12 mg Q48H SC Last administered on 10/22/18at 15:56; Admin Dose 12 MG; Start 10/22/18 at 15:30 Insulin Glargine (Lantus) 10 units DAILY@1000 SC ; Start 10/24/18 at 10:00 RORY CRUM NP Oct 23, 2018 15:38
[2018-10-23] MEDS: EPOETIN ALFA-EPBX (ESRD) 10,000 UNIT/ML VIAL SC SCH (17:44)
[2018-10-24] VITALS (27 sets, daily range): BP systolic 161–229; BP diastolic 76–118; PULSE 75–91; RESP 16–20
[2018-10-24] MEDS: hydrALAzine 20 MG INJ IV PRN ×4 (00:28→22:10)
[2018-10-24] MEDS: LORAZEPAM 2 MG INJ IV PRN (00:36)
[2018-10-24] MEDS: HYDROmorphONE 0.5 MG/0.5 ML SYG IV PRN ×6 (01:06→22:11)
[2018-10-24] MEDS: ACCU-CHEK XX SCH (01:06)
[2018-10-24] MEDS: PANTOPRAZOLE 40 MG INJ IV SCH ×2 (04:49→17:58)
[2018-10-24] MEDS: LABETALOL HCL 20MG INJ IV PRN ×3 (07:28→18:08)
[2018-10-24] MEDS: INSULIN ASPART [NOVOLOG] 3 ML PEN SC SCH ×7 (08:07→20:30)
--- NOTE | 2018-10-24 08:53 | PN ---
DATE: 10/24/2018 SUBJECTIVE: The patient had hemodialysis yesterday, was only able to tolerate 2 hours. The patient continues to have chronic pain. No other events noted. OBJECTIVE: VITAL SIGNS: Blood pressure is 188/89, respirations 20, pulse 88, temperature 98.0. HEENT: Head is normocephalic. NECK: Supple. HEART: Regular rate. LUNGS: Show diminished breath sounds at the base. ABDOMEN: Soft, nontender to palpation. No rebound or guarding. EXTREMITIES: Negative for clubbing, cyanosis, no edema. DERMATOLOGIC: No rashes. MUSCULOSKELETAL: No joint effusion. NEUROLOGIC: No change in exam. MEDICATIONS: Reviewed. LABORATORY DATA: Reviewed from 10/23/18. ASSESSMENT AND PLAN: 1. End-stage renal disease. The patient will have hemodialysis today. We will dialyze for 3 hours 3k bath, calcium 2.5, ultrafiltrate as tolerated. The patient will be given Benadryl during hemodial ysis, hypoallergenic protein will be used. 2. Hypertensive urgency. Etiology is multifactorial secondary to end-stage renal disease, opiate wi thdrawal, increased intravascular volume. Plan is to continue ultrafiltration with dialysis. Contin ue current blood pressure regimen. Continue IV labetalol and monitor closely. 3. Anemia. Continue to monitor hemoglobin and hematocrit levels. We will give Epogen. We will kate ck iron panel. 4. Mineral bone disorder, monitor calcium and phosphorus levels. Resume phosphate binders once jesica ent tolerated p.o. 5. Opiate withdrawal. Continue current medical management. 6. Hyperkalemia, resolved. 7. Right tibiofibular fracture. The patient has been placed in a cast. Continue to monitor. 8. Cellulitis. The patient is completing antibiotic course. 9. Diabetes. Continue current insulin regimen. 10. Nausea, vomiting. Etiology may be secondary to opiate withdrawal versus gastroparesis. Continu e to monitor. Follow up with GI. The patient may require EGD. Dictated By: JUJU MARTINEZ DO NR/NTS Conf#: [id number] DID#: [id number] CC: VERITO GARCIA MD; NAYAN WILLIS; BLAYNE BLANTON MD;*EndCC*
[2018-10-24] MEDS: SPIRONOLACTONE 25 MG TAB PO SCH ×2 (09:06→20:28)
[2018-10-24] MEDS: LABETALOL 200 MG TAB PO SCH ×2 (09:07→20:30)
[2018-10-24] MEDS ORDERED: DIPHENHYDRAMINE 50 MG INJ IV ONE ×2 (10:00)
[2018-10-24] MEDS: INSULIN GLARGINE [LANTus] (100 UNITS/ML) SYG SC SCH (10:13)
[2018-10-24] MEDS ORDERED: SOD CHLORIDE 0.9% 250 ML IV* ONE (10:56)
--- NOTE | 2018-10-24 11:07 | PN ---
Date/Time of Note Date/Time of Note DATE: 10/24/18 TIME: 11:04 Assessment/Plan VTE Prophylaxis Risk score (from Ns)>0 risk: 9 SCD applied (from Ns): No SCD contraindicated: other Pharmacological prophylaxis: heparin Lines/Catheters IV Catheter Type (from [facility]): Mid Line Urinary Cath still in place: No Assessment/Plan Hospital Course S: Patient patient only received 2 hours of dialysis this morning, still having occasional nausea symptoms, n.p.o. since yesterday as NG tube has been out since yesterday. Awaiting EGD for later today. Still having high blood pressure but per nursing staff was able to take her p.o. blood pressure medicines again this morning. Small bowel follow-through was performed yesterday, showed no obstruction. CT scan of spine results reviewed. O: VS -see below PE: General: lying in bed, answering questions appropriately, legally blind HEENT: Atraumatic, normocephalic. Moist mucous membranes, clear oropharynx Neck: Supple with full range of motion. No rigidity or meningismus Chest: Right Tremayne cath Lungs: Clear to auscultation bilaterally no crackles rales or wheezing Heart: Normal S1-S2, Regular rhythm and rate. No murmur, S3, or S4 Abdomen: Soft , nontender, nondistended , bowel sounds are present. No guarding no rebound tenderness Extremities: Right lower extremity significant discoloration of the anterior rose, warm to touch, distal pulses palpable, no cyanosis noted Neurologic: No focal deficits Assessment/Plan: 28 yo woman with type I diabetes, ESRD on MWF dialysis, diabetic gastroparesis and multiple allergies presents with R tib/fib fracture. #Type I diabetes-sugars in the last 24 hours in the 150-220 range. -Continue current insulin regimen, monitor sugars, follow endocrinology recommendations #Nausea/vomiting: Slightly improving but still present, has been on as needed Tigan and as needed higher doses of Zofran, likely secondary to opiate withdrawal versus diabetic gastroparesis- The patient reports several weeks of nausea and PO intolerance attributed to diabetic gastroparesis -Monitor, n.p.o. except meds for now, awaiting EGD -Continue Zofran and Tigan antiemetics. -Consider erythromycin as well? # HTN urgency: Blood pressure initially improved but has been more elevated last 24 hours (earlier she did require nicardipine drip in the ICU 3 days ago) -Continue home labetalol, clonidine, and other home p.o. medications -Continue hydralazine as needed IV, as well as as needed IV labetalol will increase the frequency of this #ESRD- Patient is anuric, normally gets dialysis 3 times a week as an outpatient - Dr. Spear consulted for routine dialysis #Right tib/fib fracture-orthopedics Dr. Babcock consulted -recommended for long leg brace with a dial lock - has been ordered and now in place. -For now keep limb immobile-continue leg brace that is now in place, ordered by orthopedic surgery team -Of note, on admission she was started on broad spectrum antibiotics for "cellulitis", although there is a small ulcer and a large ecchymosis: Will continue antibiotics until culture results return, low threshold to discontinue. #Mid back pain- Associated with fall, also with palpable tenderness and slight deformity of spine- No peripheral neuro findings concerning for cord compression or cauda equina -Monitor, continue PT -Follow-up further recommendations from pain management consult DVT: None GI: PPI IV twice daily Result Diagram: 10/24/1831 10/24/1831 Results 24hrs Laboratory Tests Test 10/23/18 11:43 10/23/18 13:58 10/23/18 14:31 10/23/18 17:53 Bedside Glucose 154 149 118 Hemoglobin 7.0 L Hematocrit 21.8 L Test 10/23/18 21:13 10/24/18 01:05 10/24/18 07:31 10/24/18 07:53 Bedside Glucose 137 261 H 277 H White Blood Count 5.5 # Red Blood Count 2.13 L Hemoglobin 6.6 *L Hematocrit 20.2 L Mean Corpuscular 94.8 Volume Mean Corpuscular 31.0 Hemoglobin Mean Corpuscular 32.7 Hemoglobin Concent Red Cell 15.8 H Distribution Width Platelet Count 193 Mean Platelet Volume 10.1 Immature 0.400 Granulocytes % Neutrophils % Segmented 77 Neutrophils % (Manual) Lymphocytes % Lymphocytes % 11 L (Manual) Monocytes % Monocytes % (Manual) 8 Eosinophils % Eosinophils % 4 (Manual) Basophils % Nucleated Red Blood 0.0 Cells % Immature 0.020 Granulocytes # Neutrophils # Lymphocytes (Manual) 0.6 L Lymphocytes # Monocytes # Monocytes # (Manual) 0.4 Eosinophils # Basophils # Nucleated Red Blood Cells # Platelet Estimate NORMAL Polychromasia 3+ Anisocytosis 1+ Sodium Level 141 Potassium Level 3.9 Chloride Level 101 Carbon Dioxide Level 26 Anion Gap 14 #H Blood Urea Nitrogen 38 #H Creatinine 6.05 #H Est Glomerular 8 L Filtrat Rate mL/min Glucose Level 250 H Calcium Level 8.9 Test 10/24/18 10:09 Bedside Glucose 112 Exam/Review of Systems Exam Vitals Vital Signs Date Temp Pulse Resp B/P (MAP) Pulse Ox O2 O2 Flow FiO2 Time Delivery Rate 10/24/18 98.8 78 19 188/76 95 08:04 (113) 10/23/18 Nasal 16:36 Cannula 10/23/18 2.0 12:30 10/22/18 21 08:28 Intake and Output 10/23/18 10/23/18 10/24/18 1414:59 22:59 06:59 IntakeIntake Total 104 ml 250 ml OutputOutput Total 1800 ml BalanceBalance -1800 ml 104 ml 250 ml Results Results 24hrs Laboratory Tests Test 10/23/18 11:43 10/23/18 13:58 10/23/18 14:31 10/23/18 17:53 Bedside Glucose 154 149 118 Hemoglobin 7.0 L Hematocrit 21.8 L Test 10/23/18 21:13 10/24/18 01:05 10/24/18 07:31 10/24/18 07:53 Bedside Glucose 137 261 H 277 H White Blood Count 5.5 # Red Blood Count 2.13 L Hemoglobin 6.6 *L Hematocrit 20.2 L Mean Corpuscular 94.8 Volume Mean Corpuscular 31.0 Hemoglobin Mean Corpuscular 32.7 Hemoglobin Concent Red Cell 15.8 H Distribution Width Platelet Count 193 Mean Platelet Volume 10.1 Immature 0.400 Granulocytes % Neutrophils % Segmented 77 Neutrophils % (Manual) Lymphocytes % Lymphocytes % 11 L (Manual) Monocytes % Monocytes % (Manual) 8 Eosinophils % Eosinophils % 4 (Manual) Basophils % Nucleated Red Blood 0.0 Cells % Immature 0.020 Granulocytes # Neutrophils # Lymphocytes (Manual) 0.6 L Lymphocytes # Monocytes # Monocytes # (Manual) 0.4 Eosinophils # Basophils # Nucleated Red Blood Cells # Platelet Estimate NORMAL Polychromasia 3+ Anisocytosis 1+ Sodium Level 141 Potassium Level 3.9 Chloride Level 101 Carbon Dioxide Level 26 Anion Gap 14 #H Blood Urea Nitrogen 38 #H Creatinine 6.05 #H Est Glomerular 8 L Filtrat Rate mL/min Glucose Level 250 H Calcium Level 8.9 Test 10/24/18 10:09 Bedside Glucose 112 Medications Medication Current Medications Miscellaneous Information (* Miscellaneous Pharmacy Order) HYPOGLYCEMIA TREATMENT HYPOGLYCEM PROTOCOL PRN XX .HYPOGLYCEMIA PROTOCOL; Start 10/20/18 at 00:00 Nitroglycerin (Nitroglycerin (Sl Tab) 0.4 Mg) 1 tab Q5M PRN SL CHEST PAIN Last administered on 10/20/18at 12:28; Admin Dose 1 TAB; Start 10/20/18 at 00:00 Acetaminophen (Tylenol Liquid) 650 mg Q6H PRN PO PAIN LEVEL 1-3 OR FEVER; Start 10/20/18 at 00:00 Docusate Sodium (Colace) 100 mg Q12H PRN PO CONSTIPATION; Start 10/20/18 at 00:00 Bisacodyl (Dulcolax) 5 mg DAILY PRN PO CONSTIPATION; Start 10/20/18 at 00:00 Vancomycin HCl (Vanco Iv Per Pharmacy) VANCOMYCIN PER PHARMACY PER PROTOCOL XX ; Start 10/20/18 at 01:30 Clonidine HCl (Catapres-Tts 3 Patch) 2 patch Q7D TRANSDERM Last administered on 10/21/18at 10:19; Admin Dose 2 PATCH; Start 10/21/18 at 09:00 Diagnostic Test (Pha) (Accu-Chek) 1 ea 02 XX Last administered on 10/24/18at 01:06; Admin Dose 1 EA; Start 10/21/18 at 02:00 Miscellaneous Information 1 ea NOTE XX ; Start 10/20/18 at 10:30 Glucose (Glutose) 15 gm Q15M PRN PO DECREASED GLUCOSE; Start 10/20/18 at 10:30 Glucose (Glutose) 22.5 gm Q15M PRN PO DECREASED GLUCOSE Last administered on 10/20/18at 17:16; Admin Dose 22.5 GM; Start 10/20/18 at 10:30 Dextrose (D50w Syringe) 25 ml Q15M PRN IV DECREASED GLUCOSE Last administered on 10/20/18at 17:34; Admin Dose 25 ML; Start 10/20/18 at 10:30 Dextrose (D50w Syringe) 50 ml Q15M PRN IV DECREASED GLUCOSE; Start 10/20/18 at 10:30 Glucagon (Glucagen) 1 mg Q15M PRN IM DECREASED GLUCOSE; Start 10/20/18 at 10:30 Glucose (Glutose) 15 gm Q15M PRN BUCCAL DECREASED GLUCOSE; Start 10/20/18 at 10:30 Hydralazine HCl (Apresoline) 10 mg Q4H PRN IV SYS BP > 150 Last administered on 10/24/18at 00:28; Admin Dose 10 MG; Start 10/20/18 at 23:30 Hydralazine HCl (Apresoline) 50 mg TID PO Last administered on 10/24/18 09:06; Admin Dose 50 MG; Start 10/21/18 at 05:30 Heparin Sodium (Porcine) (Heparin (1000 Units/ml)) 3,700 unit AFTER DIALYSIS CATHETER Last administered on 10/23/18 12:23; Admin Dose 3,700 UNIT; Start 10/21/18 at 08:00 Trimethobenzamide HCl (Tigan) 200 mg Q6H PRN IM NAUSEA AND/OR VOMITING Last administered on 10/21/18 18:21; Admin Dose 200 MG; Start 10/21/18 at 13:00 Calcium Carbonate (Ca Carbonate) 750 mg Q2H PRN PO GI; Start 10/21/18 at 15:00 Clonidine (Catapres) 0.4 mg BID PO Last administered on 10/24/18 09:06; Admin Dose 0.4 MG; Start 10/21/18 at 14:00 Hydromorphone HCl (Dilaudid) 2 mg Q4H PRN PO PAIN; Start 10/21/18 at 14:00 Labetalol HCl (Normodyne) 1,200 mg BID PO Last administered on 10/24/18 09:07; Admin Dose 1,200 MG; Start 10/21/18 at 14:00 Loperamide HCl (Imodium Cap) 2 mg TID PRN PO DIARRHEA; Start 10/21/18 at 14:00 Pantoprazole (Protonix Tab) 40 mg BID PO ; Start 10/21/18 at 14:00; Status Hold Spironolactone (Aldactone) 25 mg BID PO Last administered on 10/24/18 09:06; Admin Dose 25 MG; Start 10/21/18 at 21:00 Ondansetron HCl 8 mg/Sodium Chloride 54 ml @ 216 mls/hr Q4H PRN IV NAUSEA AND/OR VOMITING Last administered on 10/23/18 12:31; Admin Dose 216 MLS/HR; Start 10/21/18 at 14:30 Hydromorphone HCl (Dilaudid) 0.5 mg Q4H PRN IV SEVERE PAIN LEVEL 7-10 Last administered on 10/24/18 09:07; Admin Dose 0.5 MG; Start 10/21/18 at 16:00 Insulin Aspart (Novolog Insulin Pen) 2 unit WITH MEALS SC Last administered on 10/24/18 08:07; Admin Dose 2 UNIT; Start 10/22/18 at 07:35 Insulin Aspart (Novolog Insulin Pen) NOVOLOG *CUSTOM* ALGORITHM AC MEALS AND BEDTIME SC Last administered on 10/24/18 08:08; Admin Dose 2 UNIT; Start 10/21/18 at 21:00 Al Hydrox/Mg Hydrox/Simethicone (Mag-Al Plus) 30 ml Q6H PRN PO GASTROINTESTINAL UPSET; Start 10/22/18 at 01:30 Epoetin Vic-epbx (RETACRIT(esrd)) 10,000 unit MoWeFr@1700 SC Last administered on 10/23/18 17:44; Admin Dose 10,000 UNIT; Start 10/23/18 at 17:00 Enalaprilat (Vasotec Iv) 1.25 mg Q6H PRN IV BLOOD PRESSURE SUPPORT; Start 10/22/18 at 11:00; Status Hold Pantoprazole (Protonix Iv) 40 mg BID@06,18 IV Last administered on 10/24/18 04:49; Admin Dose 40 MG; Start 10/22/18 at 11:00 Levalbuterol (Xopenex Neb) 0.63 mg Q4H RESP THERAPY PRN HHN WHEEZING; Start 10/22/18 at 11:00 Methylnaltrexone Brea (Relistor) 12 mg Q48H SC Last administered on 10/22/18 15:56; Admin Dose 12 MG; Start 10/22/18 at 15:30 Insulin Glargine (Lantus) 10 units DAILY@1000 SC Last administered on 10/24/18 10:13; Admin Dose 10 UNITS; Start 10/24/18 at 10:00 Diphenhydramine HCl (Benadryl) 25 mg Q4 PRN IV ITCHING; Start 10/24/18 at 10:00 Labetalol HCl (Labetalol) 10 mg Q4H PRN IV ELEVATED BLOOD PRESSURE; Start 10/24/18 at 11:00 NAYAN WILLIS Oct 24, 2018 11:07
[2018-10-24] MEDS: DIPHENHYDRAMINE 50 MG INJ IV PRN ×3 (11:48→20:30)
[2018-10-24] MEDS: HEPARIN 1000 UNITS/ML 10 ML INJ CATHETER SCH (13:20)
[2018-10-24] MEDS: TRIMETHOBENZAMIDE 100 MG/ML VIAL IM PRN (13:24)
--- NOTE | 2018-10-24 14:03 | CONS ---
Assessment/Plan Assessment/Plan Problems: (1) Type 2 diabetes mellitus with diabetic chronic kidney disease Status: Chronic Comment: Blood sugar control has improved. I am not entirely clear if this is type I or type II although I suspect this is most likely to be a type I diabetic. Continue with treatment adjustment of insulin regimen. Her regimen is going to be changing the sooner she starts to eat again. 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 Nephrology to make determinations about whether or not he is cinacalcet (4) Vitamin D deficiency Status: Chronic Comment: Try to replace Consultation Date/Type/Reason Admit Date/Time Oct 19, 2018 at 23:42 Initial Consult Date 10/22/18 Type of Consult Endocrinology Reason for Consultation Diabetes mellitus type I versus type II with multiple complications including end-stage renal disease, retinopathy, peripheral neuropathy.; Secondary hy perparathyroidism due to renal disease; vitamin D deficiency Requesting Provider: VERITO GARCIA Date/Time of Note DATE: 10/24/18 TIME: 14:01 24 HR Interval Summary Free Text/Dictation Patient reports that she is having some discomfort but she is trying to work with physical therapy Detailed Summary Endocrine: no complaints Exam/Review of Systems Exam Vitals Vital Signs Date Temp Pulse Resp B/P (MAP) Pulse Ox O2 O2 Flow FiO2 Time Delivery Rate 10/24/18 81 16 193/93 Room Air 13:15 (126) 10/24/18 98.7 96 11:27 10/23/18 2.0 12:30 10/22/18 21 08:28 Intake and Output 10/23/18 10/23/18 10/24/18 1515:00 23:00 07:00 IntakeIntake Total 104 ml 250 ml OutputOutput Total 1800 ml BalanceBalance -1800 ml 104 ml 250 ml Constitutional: alert, oriented Extremities: other (Right lower extremity in a hinged lower brace) Results Result Diagram: 10/24/18 0731 10/24/18 0731 Results 24hrs Laboratory Tests Test 10/23/18 14:31 10/23/18 17:53 10/23/18 21:13 10/24/18 01:05 Bedside Glucose 149 118 137 261 H Test 10/24/18 07:31 10/24/18 07:53 10/24/18 10:09 10/24/18 12:10 White Blood Count 5.5 # Red Blood Count 2.13 L Hemoglobin 6.6 *L Hematocrit 20.2 L Mean Corpuscular 94.8 Volume Mean Corpuscular 31.0 Hemoglobin Mean Corpuscular 32.7 Hemoglobin Concent Red Cell 15.8 H Distribution Width Platelet Count 193 Mean Platelet Volume 10.1 Immature 0.400 Granulocytes % Neutrophils % Segmented 77 Neutrophils % (Manual) Lymphocytes % Lymphocytes % 11 L (Manual) Monocytes % Monocytes % (Manual) 8 Eosinophils % Eosinophils % 4 (Manual) Basophils % Nucleated Red Blood 0.0 Cells % Immature 0.020 Granulocytes # Neutrophils # Lymphocytes (Manual) 0.6 L Lymphocytes # Monocytes # Monocytes # (Manual) 0.4 Eosinophils # Basophils # Nucleated Red Blood Cells # Platelet Estimate NORMAL Polychromasia 3+ Anisocytosis 1+ Sodium Level 141 Potassium Level 3.9 Chloride Level 101 Carbon Dioxide Level 26 Anion Gap 14 #H Blood Urea Nitrogen 38 #H Creatinine 6.05 #H Est Glomerular 8 L Filtrat Rate mL/min Glucose Level 250 H Calcium Level 8.9 Bedside Glucose 277 H 112 79 Medications Medication Current Medications Miscellaneous Information (* Miscellaneous Pharmacy Order) HYPOGLYCEMIA TREATMENT HYPOGLYCEM PROTOCOL PRN XX .HYPOGLYCEMIA PROTOCOL; Start 10/20/18 at 00:00 Nitroglycerin (Nitroglycerin (Sl Tab) 0.4 Mg) 1 tab Q5M PRN SL CHEST PAIN Last administered on 10/20/18at 12:28; Admin Dose 1 TAB; Start 10/20/18 at 00:00 Acetaminophen (Tylenol Liquid) 650 mg Q6H PRN PO PAIN LEVEL 1-3 OR FEVER; Start 10/20/18 at 00:00 Docusate Sodium (Colace) 100 mg Q12H PRN PO CONSTIPATION; Start 10/20/18 at 00:00 Bisacodyl (Dulcolax) 5 mg DAILY PRN PO CONSTIPATION; Start 10/20/18 at 00:00 Vancomycin HCl (Vanco Iv Per Pharmacy) VANCOMYCIN PER PHARMACY PER PROTOCOL XX ; Start 10/20/18 at 01:30 Clonidine HCl (Catapres-Tts 3 Patch) 2 patch Q7D TRANSDERM Last administered on 10/21/18at 10:19; Admin Dose 2 PATCH; Start 10/21/18 at 09:00 Diagnostic Test (Pha) (Accu-Chek) 1 ea 02 XX Last administered on 10/24/18at 01:06; Admin Dose 1 EA; Start 10/21/18 at 02:00 Miscellaneous Information 1 ea NOTE XX ; Start 10/20/18 at 10:30 Glucose (Glutose) 15 gm Q15M PRN PO DECREASED GLUCOSE; Start 10/20/18 at 10:30 Glucose (Glutose) 22.5 gm Q15M PRN PO DECREASED GLUCOSE Last administered on 10/20/18at 17:16; Admin Dose 22.5 GM; Start 10/20/18 at 10:30 Dextrose (D50w Syringe) 25 ml Q15M PRN IV DECREASED GLUCOSE Last administered on 10/20/18at 17:34; Admin Dose 25 ML; Start 10/20/18 at 10:30 Dextrose (D50w Syringe) 50 ml Q15M PRN IV DECREASED GLUCOSE; Start 10/20/18 at 10:30 Glucagon (Glucagen) 1 mg Q15M PRN IM DECREASED GLUCOSE; Start 10/20/18 at 10:30 Glucose (Glutose) 15 gm Q15M PRN BUCCAL DECREASED GLUCOSE; Start 10/20/18 at 10:30 Hydralazine HCl (Apresoline) 10 mg Q4H PRN IV SYS BP > 150 Last administered on 10/24/18at 11:16; Admin Dose 10 MG; Start 10/20/18 at 23:30 Hydralazine HCl (Apresoline) 50 mg TID PO Last administered on 10/24/18 12:17; Admin Dose 50 MG; Start 10/21/18 at 05:30 Heparin Sodium (Porcine) (Heparin (1000 Units/ml)) 3,700 unit AFTER DIALYSIS CATHETER Last administered on 10/24/18 13:20; Admin Dose 3,700 UNIT; Start 10/21/18 at 08:00 Trimethobenzamide HCl (Tigan) 200 mg Q6H PRN IM NAUSEA AND/OR VOMITING Last administered on 10/24/18 13:24; Admin Dose 200 MG; Start 10/21/18 at 13:00 Calcium Carbonate (Ca Carbonate) 750 mg Q2H PRN PO GI; Start 10/21/18 at 15:00 Clonidine (Catapres) 0.4 mg BID PO Last administered on 10/24/18 09:06; Admin Dose 0.4 MG; Start 10/21/18 at 14:00 Hydromorphone HCl (Dilaudid) 2 mg Q4H PRN PO PAIN; Start 10/21/18 at 14:00 Labetalol HCl (Normodyne) 1,200 mg BID PO Last administered on 10/24/18 09:07; Admin Dose 1,200 MG; Start 10/21/18 at 14:00 Loperamide HCl (Imodium Cap) 2 mg TID PRN PO DIARRHEA; Start 10/21/18 at 14:00 Pantoprazole (Protonix Tab) 40 mg BID PO ; Start 10/21/18 at 14:00; Status Hold Spironolactone (Aldactone) 25 mg BID PO Last administered on 10/24/18 09:06; Admin Dose 25 MG; Start 10/21/18 at 21:00 Ondansetron HCl 8 mg/Sodium Chloride 54 ml @ 216 mls/hr Q4H PRN IV NAUSEA AND/OR VOMITING Last administered on 10/23/18 12:31; Admin Dose 216 MLS/HR; Start 10/21/18 at 14:30 Hydromorphone HCl (Dilaudid) 0.5 mg Q4H PRN IV SEVERE PAIN LEVEL 7-10 Last administered on 10/24/18 13:23; Admin Dose 0.5 MG; Start 10/21/18 at 16:00 Insulin Aspart (Novolog Insulin Pen) 2 unit WITH MEALS SC Last administered on 10/24/18 08:07; Admin Dose 2 UNIT; Start 10/22/18 at 07:35 Insulin Aspart (Novolog Insulin Pen) NOVOLOG *CUSTOM* ALGORITHM AC MEALS AND BEDTIME SC Last administered on 10/24/18 08:08; Admin Dose 2 UNIT; Start 10/21/18 at 21:00 Al Hydrox/Mg Hydrox/Simethicone (Mag-Al Plus) 30 ml Q6H PRN PO GASTROINTESTINAL UPSET; Start 10/22/18 at 01:30 Epoetin Vic-epbx (RETACRIT(esrd)) 10,000 unit MoWeFr@1700 SC Last administered on 10/23/18at 17:44; Admin Dose 10,000 UNIT; Start 10/23/18 at 17:00 Enalaprilat (Vasotec Iv) 1.25 mg Q6H PRN IV BLOOD PRESSURE SUPPORT; Start 10/22/18 at 11:00; Status Hold Pantoprazole (Protonix Iv) 40 mg BID@06,18 IV Last administered on 10/24/18 04:49; Admin Dose 40 MG; Start 10/22/18 at 11:00 Levalbuterol (Xopenex Neb) 0.63 mg Q4H RESP THERAPY PRN HHN WHEEZING; Start 10/22/18 at 11:00 Methylnaltrexone C[place]bert (Relistor) 12 mg Q48H SC Last administered on 10/22/18at 15:56; Admin Dose 12 MG; Start 10/22/18 at 15:30 Insulin Glargine (Lantus) 10 units DAILY@1000 SC Last administered on 10/24/18at 10:13; Admin Dose 10 UNITS; Start 10/24/18 at 10:00 Diphenhydramine HCl (Benadryl) 25 mg Q4 PRN IV ITCHING Last administered on 10/24/18at 11:48; Admin Dose 25 MG; Start 10/24/18 at 10:00 Labetalol HCl (Labetalol) 10 mg Q4H PRN IV ELEVATED BLOOD PRESSURE Last administered on 10/24/18 13:22; Admin Dose 10 MG; Start 10/24/18 at 11:00 Ergocalciferol (Drisdol Liquid (Ped)) 50,000 units ONCE ONCE PO ; Start 10/24/18 at 14:00; Stop 10/24/18 at 14:01; Status ADRI SCHROEDER MD Oct 24, 2018 14:03
[2018-10-24] MEDS ORDERED: ERGOCALCIFEROL 50,000 UNIT CAP PO SCH (14:30)
--- NOTE | 2018-10-24 15:28 | CONS ---
Assessment/Plan Assessment/Plan Hospital Course (Demo Recall) 1200 No acute changes, in HD, looks comfortable, afebrile Indwelling: Right chest permacath Microbiology: Blood cultures negative since admission MRSA swab negative Chest x-ray on admission revealed no acute cardiopulmonary disease. Right lower extremity CT revealed soft tissue swelling surrounding community it slightly impacted fracture of the proximal meet DF pieces of the tibia and fibula. Knee joint fluid extending to the suprapatellar bursa Extremity venous study revealed no DVT of the right lower extremity Antimicrobials: Vancomycin Allergy: Clindamycin Physical examination: This is a chronically ill-appearing middle-aged woman who is in no distress. Head atraumatic normocephalic sclera nonicteric vehicle mucosa dry neck is supple chest rise symmetrical breath sounds diminished bases. Heart: S1-S2. Abdomen distended soft, bowel sounds present. Extremities with right lower extremity significant erythema edema and bruising Assessment: 1. Right lower extremity cellulitis/fracture 2. Uncontrolled hypertension 3. Diabetes 4. End-stage renal disease, hemodialysis dependent Plan: Remains stable, dc will dc abx and observe Consultation Date/Type/Reason Admit Date/Time Oct 19, 2018 at 23:42 Initial Consult Date Type of Consult id Requesting Provider: VERITO GARCIA Date/Time of Note DATE: 10/24/18 TIME: 15:27 Exam/Review of Systems Exam Vitals Vital Signs Date Temp Pulse Resp B/P (MAP) Pulse Ox O2 O2 Flow FiO2 Time Delivery Rate 10/24/18 81 16 193/93 Room Air 13:15 (126) 10/24/18 98.7 96 11:27 10/23/18 2.0 12:30 10/22/18 21 08:28 Intake and Output 10/23/18 10/23/18 10/24/18 1515:00 23:00 07:00 IntakeIntake Total 104 ml 250 ml OutputOutput Total 1800 ml BalanceBalance -1800 ml 104 ml 250 ml Results Result Diagram: 10/24/18 0731 10/24/18 0731 Results 24hrs Laboratory Tests Test 10/23/18 17:53 10/23/18 21:13 10/24/18 01:05 10/24/18 07:27 Bedside Glucose 118 137 261 H Iron Level 43 Total Iron Binding 156 L Capacity Percent Iron 28 Saturation Ferritin 548.0 H Test 10/24/18 07:31 10/24/18 07:53 10/24/18 10:09 10/24/18 12:10 White Blood Count 5.5 # Red Blood Count 2.13 L Hemoglobin 6.6 *L Hematocrit 20.2 L Mean Corpuscular 94.8 Volume Mean Corpuscular 31.0 Hemoglobin Mean Corpuscular 32.7 Hemoglobin Concent Red Cell 15.8 H Distribution Width Platelet Count 193 Mean Platelet Volume 10.1 Immature 0.400 Granulocytes % Neutrophils % Segmented 77 Neutrophils % (Manual) Lymphocytes % Lymphocytes % 11 L (Manual) Monocytes % Monocytes % (Manual) 8 Eosinophils % Eosinophils % 4 (Manual) Basophils % Nucleated Red Blood 0.0 Cells % Immature 0.020 Granulocytes # Neutrophils # Lymphocytes (Manual) 0.6 L Lymphocytes # Monocytes # Monocytes # (Manual) 0.4 Eosinophils # Basophils # Nucleated Red Blood Cells # Platelet Estimate NORMAL Polychromasia 3+ Anisocytosis 1+ Sodium Level 141 Potassium Level 3.9 Chloride Level 101 Carbon Dioxide Level 26 Anion Gap 14 #H Blood Urea Nitrogen 38 #H Creatinine 6.05 #H Est Glomerular 8 L Filtrat Rate mL/min Glucose Level 250 H Calcium Level 8.9 Bedside Glucose 277 H 112 79 Medications Medication Current Medications Miscellaneous Information (* Miscellaneous Pharmacy Order) HYPOGLYCEMIA TREATMENT HYPOGLYCEM PROTOCOL PRN XX .HYPOGLYCEMIA PROTOCOL; Start 10/20/18 at 00:00 Nitroglycerin (Nitroglycerin (Sl Tab) 0.4 Mg) 1 tab Q5M PRN SL CHEST PAIN Last administered on 10/20/18at 12:28; Admin Dose 1 TAB; Start 10/20/18 at 00:00 Acetaminophen (Tylenol Liquid) 650 mg Q6H PRN PO PAIN LEVEL 1-3 OR FEVER; Start 10/20/18 at 00:00 Docusate Sodium (Colace) 100 mg Q12H PRN PO CONSTIPATION; Start 10/20/18 at 00:00 Bisacodyl (Dulcolax) 5 mg DAILY PRN PO CONSTIPATION; Start 10/20/18 at 00:00 Vancomycin HCl (Vanco Iv Per Pharmacy) VANCOMYCIN PER PHARMACY PER PROTOCOL XX ; Start 10/20/18 at 01:30 Clonidine HCl (Catapres-Tts 3 Patch) 2 patch Q7D TRANSDERM Last administered on 10/21/18at 10:19; Admin Dose 2 PATCH; Start 10/21/18 at 09:00 Diagnostic Test (Pha) (Accu-Chek) 1 ea 02 XX Last administered on 10/24/18at 01:06; Admin Dose 1 EA; Start 10/21/18 at 02:00 Miscellaneous Information 1 ea NOTE XX ; Start 10/20/18 at 10:30 Glucose (Glutose) 15 gm Q15M PRN PO DECREASED GLUCOSE; Start 10/20/18 at 10:30 Glucose (Glutose) 22.5 gm Q15M PRN PO DECREASED GLUCOSE Last administered on 10/20/18at 17:16; Admin Dose 22.5 GM; Start 10/20/18 at 10:30 Dextrose (D50w Syringe) 25 ml Q15M PRN IV DECREASED GLUCOSE Last administered on 10/20/18at 17:34; Admin Dose 25 ML; Start 10/20/18 at 10:30 Dextrose (D50w Syringe) 50 ml Q15M PRN IV DECREASED GLUCOSE; Start 10/20/18 at 10:30 Glucagon (Glucagen) 1 mg Q15M PRN IM DECREASED GLUCOSE; Start 10/20/18 at 10:30 Glucose (Glutose) 15 gm Q15M PRN BUCCAL DECREASED GLUCOSE; Start 10/20/18 at 10:30 Hydralazine HCl (Apresoline) 10 mg Q4H PRN IV SYS BP > 150 Last administered on 10/24/18at 11:16; Admin Dose 10 MG; Start 10/20/18 at 23:30 Hydralazine HCl (Apresoline) 50 mg TID PO Last administered on 10/24/18 12:17; Admin Dose 50 MG; Start 10/21/18 at 05:30 Heparin Sodium (Porcine) (Heparin (1000 Units/ml)) 3,700 unit AFTER DIALYSIS CATHETER Last administered on 10/24/18 13:20; Admin Dose 3,700 UNIT; Start 10/21/18 at 08:00 Trimethobenzamide HCl (Tigan) 200 mg Q6H PRN IM NAUSEA AND/OR VOMITING Last administered on 10/24/18 13:24; Admin Dose 200 MG; Start 10/21/18 at 13:00 Calcium Carbonate (Ca Carbonate) 750 mg Q2H PRN PO GI; Start 10/21/18 at 15:00 Clonidine (Catapres) 0.4 mg BID PO Last administered on 10/24/18 09:06; Admin Dose 0.4 MG; Start 10/21/18 at 14:00 Hydromorphone HCl (Dilaudid) 2 mg Q4H PRN PO PAIN; Start 10/21/18 at 14:00 Labetalol HCl (Normodyne) 1,200 mg BID PO Last administered on 10/24/18 09:07; Admin Dose 1,200 MG; Start 10/21/18 at 14:00 Loperamide HCl (Imodium Cap) 2 mg TID PRN PO DIARRHEA; Start 10/21/18 at 14:00 Pantoprazole (Protonix Tab) 40 mg BID PO ; Start 10/21/18 at 14:00; Status Hold Spironolactone (Aldactone) 25 mg BID PO Last administered on 10/24/18 09:06; Admin Dose 25 MG; Start 10/21/18 at 21:00 Ondansetron HCl 8 mg/Sodium Chloride 54 ml @ 216 mls/hr Q4H PRN IV NAUSEA AND/ OR VOMITING Last administered on 10/23/18 12:31; Admin Dose 216 MLS/HR; Start 10/21/18 at 14:30 Hydromorphone HCl (Dilaudid) 0.5 mg Q4H PRN IV SEVERE PAIN LEVEL 7-10 Last administered on 10/24/18 13:23; Admin Dose 0.5 MG; Start 10/21/18 at 16:00 Insulin Aspart (Novolog Insulin Pen) 2 unit WITH MEALS SC Last administered on 10/24/18 08:07; Admin Dose 2 UNIT; Start 10/22/18 at 07:35 Insulin Aspart (Novolog Insulin Pen) NOVOLOG *CUSTOM* ALGORITHM AC MEALS AND BEDTIME SC Last administered on 10/24/18 08:08; Admin Dose 2 UNIT; Start 10/21/18 at 21:00 Al Hydrox/Mg Hydrox/Simethicone (Mag-Al Plus) 30 ml Q6H PRN PO GASTROINTESTINAL UPSET; Start 10/22/18 at 01:30 Epoetin Vic-epbx (RETACRIT(esrd)) 10,000 unit MoWeFr@1700 SC Last administered on 10/23/18 17:44; Admin Dose 10,000 UNIT; Start 10/23/18 at 17:00 Enalaprilat (Vasotec Iv) 1.25 mg Q6H PRN IV BLOOD PRESSURE SUPPORT; Start at 11:00; Status Hold Pantoprazole (Protonix Iv) 40 mg BID@06,18 IV Last administered on 10/24/18at 04:49; Admin Dose 40 MG; Start 10/22/18 at 11:00 Levalbuterol (Xopenex Neb) 0.63 mg Q4H RESP THERAPY PRN HHN WHEEZING; Start 10/22/18 at 11:00 Methylnaltrexone [place] (Relistor) 12 mg Q48H SC Last administered on 10/22/18at 15:56; Admin Dose 12 MG; Start 10/22/18 at 15:30 Insulin Glargine (Lantus) 10 units DAILY@1000 SC Last administered on 10/24/18at 10:13; Admin Dose 10 UNITS; Start 10/24/18 at 10:00 Diphenhydramine HCl (Benadryl) 25 mg Q4 PRN IV ITCHING Last administered on 10/24/18at 11:48; Admin Dose 25 MG; Start 10/24/18 at 10:00 Labetalol HCl (Labetalol) 10 mg Q4H PRN IV ELEVATED BLOOD PRESSURE Last administered on 10/24/18at 13:22; Admin Dose 10 MG; Start 10/24/18 at 11:00 Ergocalciferol (Drisdol) 50,000 unit ONCE PO ; Start 10/24/18 at 14:30; Stop 10/24/18 at 20:00 RORY CRUM NP Oct 24, 2018 15:28
[2018-10-24] MEDS: METHYLNALTREXONE 12 MG/0.6 ML VIAL SC SCH (15:30)
--- NOTE | 2018-10-24 16:33 | QN ---
Documentation Comment GI PROCEDURE CANCELLED today by Anesthesia due to Hypertensive Urgency - S ystolic BP > 200, DBP> 100. Hospitalist will optimize BP before anesthesia clearance to do endoscopy. Will be on standby once optimization is achieved. ELROY MURILLO Oct 24, 2018 16:33
[2018-10-24] MEDS: ONDANSETRON INJ 8 MG in SOD CHLORIDE 0.9% 50 ML IV PRN (17:36)
[2018-10-25] VITALS (28 sets, daily range): BP systolic 153–245; BP diastolic 77–111; PULSE 76–96; RESP 17–21
[2018-10-25] MEDS: LOPERAMIDE 2 MG CAP PO PRN (00:22)
[2018-10-25] MEDS: LABETALOL HCL 20MG INJ IV PRN ×4 (01:29→17:49)
[2018-10-25] MEDS: ACCU-CHEK XX SCH (02:00)
[2018-10-25] MEDS: HYDROmorphONE 0.5 MG/0.5 ML SYG IV PRN ×4 (02:14→14:08)
[2018-10-25] MEDS: hydrALAzine 20 MG INJ IV PRN ×5 (02:15→17:49)
[2018-10-25] MEDS: DIPHENHYDRAMINE 50 MG INJ IV PRN ×6 (04:18→22:46)
[2018-10-25] MEDS: PANTOPRAZOLE 40 MG INJ IV SCH ×2 (06:12→18:40)
[2018-10-25] MEDS: INSULIN ASPART [NOVOLOG] 3 ML PEN SC SCH ×7 (07:55→20:46)
[2018-10-25] MEDS: SPIRONOLACTONE 25 MG TAB PO SCH ×2 (08:28→23:27)
[2018-10-25] MEDS: LABETALOL 200 MG TAB PO SCH ×2 (08:31→23:26)
--- NOTE | 2018-10-25 09:23 | PN ---
DATE: 10/25/2018 SUBJECTIVE: The patient had hemodialysis yesterday with 2 liters removed. The patient continues to be hypertensive despite multiple medical modalities. The patient is pending possible EGD today. OBJECTIVE: VITAL SIGNS: Blood pressure is 184/77, respiration 19, pulse 96, temperature 98.3. HEENT: Head is normocephalic. NECK: Supple. HEART: Regular rate. LUNGS: Show diminished breath sounds at the base. ABDOMEN: Soft, nontender to palpation without rebound or guarding. EXTREMITIES: Negative for clubbing, cyanosis, no edema. DERMATOLOGIC: No rashes. MUSCULOSKELETAL: No joint effusion. NEUROLOGIC: No change in exam. MEDICATIONS: The patient's medications have been reviewed. LABORATORY DATA: Shows white count 4.4, hemoglobin 9.6, platelet count is 200, BUN 28, creatinine 3. 93. ASSESSMENT AND PLAN: 1. End-stage renal disease. The patient will have hemodialysis today. Will dialyze 3 hours 3k bath , calcium 2.5, ultrafiltrate as tolerated. 2. Hypertensive urgency. Blood pressure remains markedly elevated. Continue current blood pressure regimen. Continue ultrafiltration with dialysis. We will adjust medications as tolerated. 3. Anemia. Continue to monitor hemoglobin and hematocrit levels, transfuse PRBCs as needed. Contin ue Epogen. 4. Mineral bone disorder, monitor calcium and phosphorus levels. 5. Opiate withdrawal. Continue medical management. 6. Right tibiofibular fracture. The patient is status post cast. Continue to monitor. 7. Cellulitis. The patient is completing antibiotic course. 8. Diabetes. Continue current insulin regimen. 9. Nausea, vomiting. The patient is pending EGD. Continue medical management. Follow up with GI. Dictated By: JUJU MARTINEZ DO NR/NTS Conf#: [id number] DID#: [id number] CC: VERITO GARCIA MD;*End*
[2018-10-25] MEDS: ONDANSETRON INJ 8 MG in SOD CHLORIDE 0.9% 50 ML IV PRN ×3 (09:49→21:46)
[2018-10-25] MEDS: INSULIN GLARGINE [LANTus] (100 UNITS/ML) SYG SC SCH (10:42)
[2018-10-25] MEDS ORDERED: hydrALAzine 20 MG INJ IV ONE (11:30)
[2018-10-25] MEDS ORDERED: LABETALOL HCL 20MG INJ IV ONE (11:30)
--- NOTE | 2018-10-25 11:31 | PN ---
Date/Time of Note Date/Time of Note DATE: 10/25/18 TIME: 11:24 Assessment/Plan VTE Prophylaxis Risk score (from Nsg)>0 risk: 11 SCD applied (from Nsg): Yes Pharmacological prophylaxis: heparin Lines/Catheters IV Catheter Type (from Nrsg): Mid Line Urinary Cath still in place: No Assessment/Plan Hospital Course S: Patient was started on a clear liquid diet yesterday, still having hype rtensive urgency symptoms systolic blood pressure in the 210-220 range. Had dialysis and PRBC transfusion yesterday, hemoglobin improved. Seen by renal team this morning. Awaiting EGD for later today. O: VS -see below PE: General: lying in bed, answering questions appropriately, legally blind HEENT: Atraumatic, normocephalic. Moist mucous membranes, clear oropharynx Neck: Supple with full range of motion. No rigidity or meningismus Chest: Right Tremayne cath Lungs: Clear to auscultation bilaterally no crackles rales or wheezing Heart: Normal S1-S2, Regular rhythm and rate. No murmur, S3, or S4 Abdomen: Soft , nontender, nondistended , bowel sounds are present. No guarding no rebound tenderness Extremities: Right lower extremity significant discoloration of the anterior rose, warm to touch, distal pulses palpable, no cyanosis noted Neurologic: No focal deficits Assessment/Plan: 28 yo woman with type I diabetes, ESRD on MWF dialysis, diabetic gastroparesis and multiple allergies presents with R tib/fib fracture. #Type I diabetes-sugars in the last 24 hours improved -Continue current insulin regimen, monitor sugars, follow endocrinology recommendations #Nausea/vomiting: Slightly improving but still present, has been on as needed Tigan and as needed higher doses of Zofran, likely secondary to opiate withdrawal versus diabetic gastroparesis- The patient reports several weeks of nausea and PO intolerance attributed to diabetic gastroparesis -Monitor, n.p.o. except meds for now, awaiting EGD likely for later today -Continue Zofran and Tigan antiemetics. -Consider erythromycin as well? # HTN urgency: Still present despite multiple p.o. high doses of blood pressure medications and PRN IV blood pressure medicines (earlier she did require nicardipine drip in the ICU 4 days ago) -Continue home labetalol, clonidine, will increase spironolactone to 50 p.o. twice daily and hydralazine p.o. has been increased to 100 mg 3 times daily -Increase to 20 mg hydralazine as needed IV, as well as as increased to 20 [place] IV labetalol as needed today #ESRD- Patient is anuric, normally gets dialysis 3 times a week as an outpatient - Dr. Spear consulted for routine dialysis #Right tib/fib fracture-orthopedics Dr. Babcock consulted -recommended for long leg brace with a dial lock - now in place. -For now keep limb immobile-continue leg brace that is now in place, ordered by orthopedic surgery team -ID has stopped antibiotics today, monitor for now for lower extremity cellulitis #Mid back pain- Associated with fall, also with palpable tenderness and slight deformity of spine- No peripheral neuro findings concerning for cord compression or cauda equina -Monitor, continue PT -Follow-up further recommendations from pain management consult DVT: None GI: PPI IV twice daily Result Diagram: 10/25/18 0639 10/25/18 0639 Results 24hrs Laboratory Tests Test 10/24/18 12:10 10/24/18 17:57 10/24/18 20:15 10/25/18 00:21 Bedside Glucose 79 106 100 234 H Test 10/25/18 06:39 10/25/18 08:07 10/25/18 10:27 White Blood Count 4.4 L Red Blood Count 3.21 #L Hemoglobin 9.6 #L Hematocrit 29.1 #L Mean Corpuscular 90.7 Volume Mean Corpuscular 29.9 Hemoglobin Mean Corpuscular 33.0 Hemoglobin Concent Red Cell 16.6 H Distribution Width Platelet Count 200 Mean Platelet Volume 9.7 Immature 0.500 H Granulocytes % Neutrophils % 73.6 Lymphocytes % 7.4 L Monocytes % 10.4 Eosinophils % 7.2 H Basophils % 0.9 Nucleated Red Blood 0.0 Cells % Immature 0.020 Granulocytes # Neutrophils # 3.3 Lymphocytes # 0.3 L Monocytes # 0.5 Eosinophils # 0.3 Basophils # 0.0 Nucleated Red Blood 0.0 Cells # Sodium Level 140 Potassium Level 4.3 Chloride Level 102 Carbon Dioxide Level 24 Anion Gap 14 H Blood Urea Nitrogen 28 H Creatinine 3.93 #H Est Glomerular 14 L Filtrat Rate mL/min Glucose Level 230 H Calcium Level 9.0 Bedside Glucose 217 218 Exam/Review of Systems Exam Vitals Vital Signs Date Temp Pulse Resp B/P (MAP) Pulse Ox O2 O2 Flow FiO2 Time Delivery Rate 10/25/18 78 221/108 09:50 (145) 10/25/18 98.5 18 98 08:09 10/24/18 Room Air 13:15 10/23/18 2.0 12:30 10/22/18 21 08:28 Intake and Output 10/24/18 10/24/18 10/25/18 1515:00 23:00 07:00 IntakeIntake Total 300 ml OutputOutput Total 2500 ml BalanceBalance -2500 ml 300 ml Results Results 24hrs Laboratory Tests Test 10/24/18 12:10 10/24/18 17:57 10/24/18 20:15 10/25/18 00:21 Bedside Glucose 79 106 100 234 H Test 10/25/18 06:39 10/25/18 08:07 10/25/18 10:27 White Blood Count 4.4 L Red Blood Count 3.21 #L Hemoglobin 9.6 #L Hematocrit 29.1 #L Mean Corpuscular 90.7 Volume Mean Corpuscular 29.9 Hemoglobin Mean Corpuscular 33.0 Hemoglobin Concent Red Cell 16.6 H Distribution Width Platelet Count 200 Mean Platelet Volume 9.7 Immature 0.500 H Granulocytes % Neutrophils % 73.6 Lymphocytes % 7.4 L Monocytes % 10.4 Eosinophils % 7.2 H Basophils % 0.9 Nucleated Red Blood 0.0 Cells % Immature 0.020 Granulocytes # Neutrophils # 3.3 Lymphocytes # 0.3 L Monocytes # 0.5 Eosinophils # 0.3 Basophils # 0.0 Nucleated Red Blood 0.0 Cells # Sodium Level 140 Potassium Level 4.3 Chloride Level 102 Carbon Dioxide Level 24 Anion Gap 14 H Blood Urea Nitrogen 28 H Creatinine 3.93 #H Est Glomerular 14 L Filtrat Rate mL/min Glucose Level 230 H Calcium Level 9.0 Bedside Glucose 217 218 Medications Medication Current Medications Nitroglycerin (Nitroglycerin (Sl Tab) 0.4 Mg) 1 tab Q5M PRN SL CHEST PAIN Last administered on 10/20/18at 12:28; Admin Dose 1 TAB; Start 10/20/18 at 00:00 Acetaminophen (Tylenol Liquid) 650 mg Q6H PRN PO PAIN LEVEL 1-3 OR FEVER; Start 10/20/18 at 00:00 Docusate Sodium (Colace) 100 mg Q12H PRN PO CONSTIPATION; Start 10/20/18 at 00:00 Bisacodyl (Dulcolax) 5 mg DAILY PRN PO CONSTIPATION; Start 10/20/18 at 00:00 Clonidine HCl (Catapres-Tts 3 Patch) 2 patch Q7D TRANSDERM Last administered on 10/21/18at 10:19; Admin Dose 2 PATCH; Start 10/21/18 at 09:00 Diagnostic Test (Pha) (Accu-Chek) 1 ea 02 XX Last administered on 10/24/18at 01:06; Admin Dose 1 EA; Start 10/21/18 at 02:00 Miscellaneous Information 1 ea NOTE XX ; Start 10/20/18 at 10:30 Glucose (Glutose) 15 gm Q15M PRN PO DECREASED GLUCOSE; Start 10/20/18 at 10:30 Glucose (Glutose) 22.5 gm Q15M PRN PO DECREASED GLUCOSE Last administered on at 17:16; Admin Dose 22.5 GM; Start 10/20/18 at 10:30 Dextrose (D50w Syringe) 25 ml Q15M PRN IV DECREASED GLUCOSE Last administered on 10/20/18at 17:34; Admin Dose 25 ML; Start 10/20/18 at 10:30 Dextrose (D50w Syringe) 50 ml Q15M PRN IV DECREASED GLUCOSE; Start 10/20/18 at 10:30 Glucagon (Glucagen) 1 mg Q15M PRN IM DECREASED GLUCOSE; Start 10/20/18 at 10:30 Glucose (Glutose) 15 gm Q15M PRN BUCCAL DECREASED GLUCOSE; Start 10/20/18 at 10:30 Heparin Sodium (Porcine) (Heparin (1000 Units/ml)) 3,700 unit AFTER DIALYSIS CATHETER Last administered on 10/24/18at 13:20; Admin Dose 3,700 UNIT; Start 10/21/18 at 08:00 Trimethobenzamide HCl (Tigan) 200 mg Q6H PRN IM NAUSEA AND/OR VOMITING Last administered on 10/24/18at 13:24; Admin Dose 200 MG; Start 10/21/18 at 13:00 Calcium Carbonate (Ca Carbonate) 750 mg Q2H PRN PO GI; Start 10/21/18 at 15:00 Clonidine (Catapres) 0.4 mg BID PO Last administered on 10/25/18 08:29; Admin Dose 0.4 MG; Start 10/21/18 at 14:00 Hydromorphone HCl (Dilaudid) 2 mg Q4H PRN PO PAIN; Start 10/21/18 at 14:00 Labetalol HCl (Normodyne) 1,200 mg BID PO Last administered on 10/25/18 08:31; Admin Dose 1,200 MG; Start 10/21/18 at 14:00 Loperamide HCl (Imodium Cap) 2 mg TID PRN PO DIARRHEA Last administered on 10/25/18 00:22; Admin Dose 2 MG; Start 10/21/18 at 14:00 Pantoprazole (Protonix Tab) 40 mg BID PO ; Start 10/21/18 at 14:00; Status Hold Ondansetron HCl 8 mg/Sodium Chloride 54 ml @ 216 mls/hr Q4H PRN IV NAUSEA AND/OR VOMITING Last administered on 10/25/18at 09:49; Admin Dose 216 MLS/HR; Start 10/21/18 at 14:30 Hydromorphone HCl (Dilaudid) 0.5 mg Q4H PRN IV SEVERE PAIN LEVEL 7-10 Last administered on 10/25/18 10:23; Admin Dose 0.5 MG; Start 10/21/18 at 16:00 Insulin Aspart (Novolog Insulin Pen) 2 unit WITH MEALS SC Last administered on 10/24/18 08:07; Admin Dose 2 UNIT; Start 10/22/18 at 07:35 Insulin Aspart (Novolog Insulin Pen) NOVOLOG *CUSTOM* ALGORITHM AC MEALS AND BEDTIME SC Last administered on 10/25/18 08:17; Admin Dose 1 UNIT; Start 10/21/18 at 21:00 Al Hydrox/Mg Hydrox/Simethicone (Mag-Al Plus) 30 ml Q6H PRN PO GASTROINTESTINAL UPSET; Start 10/22/18 at 01:30 Epoetin Vic-epbx (RETACRIT(esrd)) 10,000 unit MoWeFr@1700 SC Last administered on 10/23/18 17:44; Admin Dose 10,000 UNIT; Start 10/23/18 at 17:00 Enalaprilat (Vasotec Iv) 1.25 mg Q6H PRN IV BLOOD PRESSURE SUPPORT; Start 10/22/18 at 11:00; Status Hold Pantoprazole (Protonix Iv) 40 mg BID@06,18 IV Last administered on 10/25/18at 06:12; Admin Dose 40 MG; Start 10/22/18 at 11:00 Levalbuterol (Xopenex Neb) 0.63 mg Q4H RESP THERAPY PRN HHN WHEEZING; Start 10/22/18 at 11:00 Methylnaltrexone [place] (Relistor) 12 mg Q48H SC Last administered on at 15:56; Admin Dose 12 MG; Start 10/22/18 at 15:30 Insulin Glargine (Lantus) 10 units DAILY@1000 SC Last administered on 10/25/18at 10:42; Admin Dose 10 UNITS; Start 10/24/18 at 10:00 Diphenhydramine HCl (Benadryl) 25 mg Q4 PRN IV ITCHING Last administered on 10/25/18at 08:27; Admin Dose 25 MG; Start 10/24/18 at 10:00 Hydralazine HCl (Apresoline) 100 mg TID PO Last administered on 10/25/18at 08 :28; Admin Dose 100 MG; Start 10/25/18 at 09:00 Labetalol HCl (Labetalol) 20 mg Q4H PRN IV ELEVATED BLOOD PRESSURE; Start 10/25/18 at 15:00 Spironolactone (Aldactone) 50 mg BID PO ; Start 10/25/18 at 21:00 Hydralazine HCl (Apresoline) 20 mg Q4H PRN IV SYS BP > 150; Start 10/25/18 at 11:30 NAYAN WILLIS Oct 25, 2018 11:31
[2018-10-25] MEDS: TRIMETHOBENZAMIDE 100 MG/ML VIAL IM PRN (13:55)
[2018-10-25] MEDS ORDERED: LOSARTAN 25 MG TAB PO ONE (14:30)
--- NOTE | 2018-10-25 14:36 | CONS ---
Assessment/Plan Assessment/Plan Problems: (1) Type 2 diabetes mellitus with diabetic chronic kidney disease Status: Chronic Comment: As noted above this may be a type I diabetic. Insulin regimen to avoid the risk of significant hypoglycemia. Qualifiers: Diabetes mellitus exterminator termite insulin use: with exterminator termite use Chronic kidney disease stage: on chronic dialysis Qualified Codes: E11.22 - Type 2 diabetes mellitus with diabetic chronic kidney disease; N18.6 - End stage renal disease; Z79.4 - assistant terminal manager (current) use of insulin; Z99.2 - Dependence on renal dialysis (2) End stage renal disease on dialysis Status: Acute Comment: As per nephrology (3) Hypertensive urgency Status: Acute Comment: In the past when the patient was just during dialysis she was given benazepril. She had the medicine for 1 week and developed facial swelling it was discontinued at that time. She has never had angiotensin II receptor blockers. I discussed this with Dr. Spear and will go ahead and give a single dose of angiotensin II receptor marshall and see how she does. If she does well then we can look at revamping her regimen. (4) Vitamin D deficiency Status: Chronic Comment: Being replaced Consultation Date/Type/Reason Admit Date/Time Oct 19, 2018 at 23:42 Initial Consult Date 10/22/18 Type of Consult Endocrinology Reason for Consultation Diabetes mellitus type 1 with complications of end-stage renal disease on hemodialysis; retinopathy; peripheral neuropathy. In addition the patient has severe hypertension. Requesting Provider: VERITO GARCIA Date/Time of Note DATE: 10/25/18 TIME: 14:34 24 HR Interval Summary Free Text/Dictation Patient reports she is a little bit nauseous. Constitutional: no complaints Detailed Summary Cardiovascular: no complaints Endocrine: no complaints Exam/Review of Systems Exam Vitals Vital Signs Date Temp Pulse Resp B/P (MAP) Pulse Ox O2 O2 Flow FiO2 Time Delivery Rate 10/25/18 78 245/107 14:00 (153) 10/25/18 98.5 17 100 11:33 10/24/18 Room Air 13:15 10/23/18 2.0 12:30 10/22/18 21 08:28 Intake and Output 10/24/18 10/24/18 10/25/18 1515:00 23:00 07:00 IntakeIntake Total 300 ml OutputOutput Total 2500 ml BalanceBalance -2500 ml 300 ml Constitutional: alert, oriented Cardiovascular: regular rate and rhythm, nl pulses Results Result Diagram: 10/25/18 0639 10/25/18 0639 Results 24hrs Laboratory Tests Test 10/24/18 17:57 10/24/18 20:15 10/25/18 00:01 10/25/18 00:21 Bedside Glucose 106 100 234 H Stool Occult Blood POSITIVE Test 10/25/18 06:39 10/25/18 08:07 10/25/18 10:27 10/25/18 11:43 White Blood Count 4.4 L Red Blood Count 3.21 #L Hemoglobin 9.6 #L Hematocrit 29.1 #L Mean Corpuscular 90.7 Volume Mean Corpuscular 29.9 Hemoglobin Mean Corpuscular 33.0 Hemoglobin Concent Red Cell 16.6 H Distribution Width Platelet Count 200 Mean Platelet Volume 9.7 Immature 0.500 H Granulocytes % Neutrophils % 73.6 Lymphocytes % 7.4 L Monocytes % 10.4 Eosinophils % 7.2 H Basophils % 0.9 Nucleated Red Blood 0.0 Cells % Immature 0.020 Granulocytes # Neutrophils # 3.3 Lymphocytes # 0.3 L Monocytes # 0.5 Eosinophils # 0.3 Basophils # 0.0 Nucleated Red Blood 0.0 Cells # Sodium Level 140 Potassium Level 4.3 Chloride Level 102 Carbon Dioxide Level 24 Anion Gap 14 H Blood Urea Nitrogen 28 H Creatinine 3.93 #H Est Glomerular 14 L Filtrat Rate mL/min Glucose Level 230 H Calcium Level 9.0 Bedside Glucose 217 218 235 H Medications Medication Current Medications Nitroglycerin (Nitroglycerin (Sl Tab) 0.4 Mg) 1 tab Q5M PRN SL CHEST PAIN Last administered on 10/20/18at 12:28; Admin Dose 1 TAB; Start 10/20/18 at 00:00 Acetaminophen (Tylenol Liquid) 650 mg Q6H PRN PO PAIN LEVEL 1-3 OR FEVER; Start 10/20/18 at 00:00 Docusate Sodium (Colace) 100 mg Q12H PRN PO CONSTIPATION; Start 10/20/18 at 00:00 Bisacodyl (Dulcolax) 5 mg DAILY PRN PO CONSTIPATION; Start 10/20/18 at 00:00 Clonidine HCl (Catapres-Tts 3 Patch) 2 patch Q7D TRANSDERM Last administered on 10/21/18at 10:19; Admin Dose 2 PATCH; Start 10/21/18 at 09:00 Diagnostic Test (Pha) (Accu-Chek) 1 ea 02 XX Last administered on 10/24/18at 01:06; Admin Dose 1 EA; Start 10/21/18 at 02:00 Miscellaneous Information 1 ea NOTE XX ; Start 10/20/18 at 10:30 Glucose (Glutose) 15 gm Q15M PRN PO DECREASED GLUCOSE; Start 10/20/18 at 10:30 Glucose (Glutose) 22.5 gm Q15M PRN PO DECREASED GLUCOSE Last administered on 10/20/18at 17:16; Admin Dose 22.5 GM; Start 10/20/18 at 10:30 Dextrose (D50w Syringe) 25 ml Q15M PRN IV DECREASED GLUCOSE Last administered on 10/20/18at 17:34; Admin Dose 25 ML; Start 10/20/18 at 10:30 Dextrose (D50w Syringe) 50 ml Q15M PRN IV DECREASED GLUCOSE; Start 10/20/18 at 10:30 Glucagon (Glucagen) 1 mg Q15M PRN IM DECREASED GLUCOSE; Start 10/20/18 at 10:30 Glucose (Glutose) 15 gm Q15M PRN BUCCAL DECREASED GLUCOSE; Start 10/20/18 at 10:30 Heparin Sodium (Porcine) (Heparin (1000 Units/ml)) 3,700 unit AFTER DIALYSIS CATHETER Last administered on 10/24/18at 13:20; Admin Dose 3,700 UNIT; Start 10/21/18 at 08:00 Trimethobenzamide HCl (Tigan) 200 mg Q6H PRN IM NAUSEA AND/OR VOMITING Last administered on 10/25/18at 13:55; Admin Dose 200 MG; Start 10/21/18 at 13:00 Calcium Carbonate (Ca Carbonate) 750 mg Q2H PRN PO GI; Start 10/21/18 at 15:00 Clonidine (Catapres) 0.4 mg BID PO Last administered on 10/25/18at 08:29; Admin Dose 0.4 MG; Start 10/21/18 at 14:00 Hydromorphone HCl (Dilaudid) 2 mg Q4H PRN PO PAIN; Start 10/21/18 at 14:00 Labetalol HCl (Normodyne) 1,200 mg BID PO Last administered on 10/25/18 08:31; Admin Dose 1,200 MG; Start 10/21/18 at 14:00 Loperamide HCl (Imodium Cap) 2 mg TID PRN PO DIARRHEA Last administered on 10/25/18 00:22; Admin Dose 2 MG; Start 10/21/18 at 14:00 Pantoprazole (Protonix Tab) 40 mg BID PO ; Start 10/21/18 at 14:00; Status Hold Ondansetron HCl 8 mg/Sodium Chloride 54 ml @ 216 mls/hr Q4H PRN IV NAUSEA AND/OR VOMITING Last administered on 10/25/18 09:49; Admin Dose 216 MLS/HR; Start 10/21/18 at 14:30 Hydromorphone HCl (Dilaudid) 0.5 mg Q4H PRN IV SEVERE PAIN LEVEL 7-10 Last administered on 10/25/18 14:08; Admin Dose 0.5 MG; Start 10/21/18 at 16:00 Insulin Aspart (Novolog Insulin Pen) 2 unit WITH MEALS SC Last administered on 10/24/18 08:07; Admin Dose 2 UNIT; Start 10/22/18 at 07:35 Insulin Aspart (Novolog Insulin Pen) NOVOLOG *CUSTOM* ALGORITHM AC MEALS AND BE DTIME SC Last administered on 10/25/18 12:01; Admin Dose 1 UNIT; Start 10/21/18 at 21:00 Al Hydrox/Mg Hydrox/Simethicone (Mag-Al Plus) 30 ml Q6H PRN PO GASTROINTESTINAL UPSET; Start 10/22/18 at 01:30 Epoetin Vic-epbx (RETACRIT(esrd)) 10,000 unit MoWeFr@1700 SC Last administered on 10/23/18at 17:44; Admin Dose 10,000 UNIT; Start 10/23/18 at 17:00 Enalaprilat (Vasotec Iv) 1.25 mg Q6H PRN IV BLOOD PRESSURE SUPPORT; Start 10/22/18 at 11:00; Status Hold Pantoprazole (Protonix Iv) 40 mg BID@06,18 IV Last administered on 10/25/18 06:12; Admin Dose 40 MG; Start 10/22/18 at 11:00 Levalbuterol (Xopenex Neb) 0.63 mg Q4H RESP THERAPY PRN HHN WHEEZING; Start 10/22/18 at 11:00 Methylnaltrexone [place] (Relistor) 12 mg Q48H SC Last administered on 10/22/18 15:56; Admin Dose 12 MG; Start 10/22/18 at 15:30 Insulin Glargine (Lantus) 10 units DAILY@1000 SC Last administered on 10/25/18 10:42; Admin Dose 10 UNITS; Start 10/24/18 at 10:00 Diphenhydramine HCl (Benadryl) 25 mg Q4 PRN IV ITCHING Last administered on 10/25/18 12:27; Admin Dose 25 MG; Start 10/24/18 at 10:00 Hydralazine HCl (Apresoline) 100 mg TID PO Last administered on 10/25/18 12:27; Admin Dose 100 MG; Start 10/25/18 at 09:00 Labetalol HCl (Labetalol) 20 mg Q4H PRN IV ELEVATED BLOOD PRESSURE Last administered on 10/25/18 14:08; Admin Dose 20 MG; Start 10/25/18 at 15:00 Spironolactone (Aldactone) 50 mg BID PO ; Start 10/25/18 at 21:00 Hydralazine HCl (Apresoline) 20 mg Q4H PRN IV SYS BP > 150 Last administered on 10/25/18 14:08; Admin Dose 20 MG; Start 10/25/18 at 11:30 ADRI BASURTO MD Oct 25, 2018 14:36
--- NOTE | 2018-10-25 15:11 | CONS ---
Assessment/Plan Assessment/Plan Hospital Course (Demo Recall) All noted, sleeping, looks comfortable, afebrile Indwelling: Right chest permacath Microbiology: Blood cultures negative since admission MRSA swab negative Chest x-ray on admission revealed no acute cardiopulmonary disease. Right lower extremity CT revealed soft tissue swelling surrounding community it slightly impacted fracture of the proximal meet DF pieces of the tibia and fibula. Knee joint fluid extending to the suprapatellar bursa Extremity venous study revealed no DVT of the right lower extremity Allergy: Clindamycin Physical examination: This is a chronically ill-appearing middle-aged woman who is in no distress. Head atraumatic normocephalic sclera nonicteric vehicle mucosa dry neck is supple chest rise symmetrical breath sounds diminished bases. Heart: S1-S2. Abdomen distended soft, bowel sounds present. Extremities with right lower extremity significant erythema edema and bruising Assessment: 1. Right lower extremity cellulitis/fracture 2. Uncontrolled hypertension 3. Diabetes 4. End-stage renal disease, hemodialysis dependent 5. Persistent nausea 6. Back pain, status post CT scan Plan: Remains unchanged, thoracolumbar CT noted, patient is off abx, pending EGD Consultation Date/Type/Reason Admit Date/Time Oct 19, 2018 at 23:42 Initial Consult Date Type of Consult id Requesting Provider: VERITO GARCIA Date/Time of Note DATE: 10/25/18 TIME: 15:10 Exam/Review of Systems Exam Vitals Vital Signs Date Temp Pulse Resp B/P (MAP) Pulse Ox O2 O2 Flow FiO2 Time Delivery Rate 10/25/18 78 245/107 14:00 (153) 10/25/18 98.5 17 100 11:33 10/24/18 Room Air 13:15 10/23/18 2.0 12:30 10/22/18 21 08:28 Intake and Output 10/24/18 10/24/18 10/25/18 1515:00 23:00 07:00 IntakeIntake Total 300 ml OutputOutput Total 2500 ml BalanceBalance -2500 ml 300 ml Results Result Diagram: 10/25/18 0639 10/25/18 0639 Results 24hrs Laboratory Tests Test 10/24/18 17:57 10/24/18 20:15 10/25/18 00:01 10/25/18 00:21 Bedside Glucose 106 100 234 H Stool Occult Blood POSITIVE Test 10/25/18 06:39 10/25/18 08:07 10/25/18 10:27 10/25/18 11:43 White Blood Count 4.4 L Red Blood Count 3.21 #L Hemoglobin 9.6 #L Hematocrit 29.1 #L Mean Corpuscular 90.7 Volume Mean Corpuscular 29.9 Hemoglobin Mean Corpuscular 33.0 Hemoglobin Concent Red Cell 16.6 H Distribution Width Platelet Count 200 Mean Platelet Volume 9.7 Immature 0.500 H Granulocytes % Neutrophils % 73.6 Lymphocytes % 7.4 L Monocytes % 10.4 Eosinophils % 7.2 H Basophils % 0.9 Nucleated Red Blood 0.0 Cells % Immature 0.020 Granulocytes # Neutrophils # 3.3 Lymphocytes # 0.3 L Monocytes # 0.5 Eosinophils # 0.3 Basophils # 0.0 Nucleated Red Blood 0.0 Cells # Sodium Level 140 Potassium Level 4.3 Chloride Level 102 Carbon Dioxide Level 24 Anion Gap 14 H Blood Urea Nitrogen 28 H Creatinine 3.93 #H Est Glomerular 14 L Filtrat Rate mL/min Glucose Level 230 H Calcium Level 9.0 Bedside Glucose 217 218 235 H Medications Medication Current Medications Nitroglycerin (Nitroglycerin (Sl Tab) 0.4 Mg) 1 tab Q5M PRN SL CHEST PAIN Last administered on 10/20/18at 12:28; Admin Dose 1 TAB; Start 10/20/18 at 00:00 Acetaminophen (Tylenol Liquid) 650 mg Q6H PRN PO PAIN LEVEL 1-3 OR FEVER; Sta rt 10/20/18 at 00:00 Docusate Sodium (Colace) 100 mg Q12H PRN PO CONSTIPATION; Start 10/20/18 at 00: 00 Bisacodyl (Dulcolax) 5 mg DAILY PRN PO CONSTIPATION; Start 10/20/18 at 00:00 Clonidine HCl (Catapres-Tts 3 Patch) 2 patch Q7D TRANSDERM Last administered on 10/21/18at 10:19; Admin Dose 2 PATCH; Start 10/21/18 at 09:00 Diagnostic Test (Pha) (Accu-Chek) 1 ea 02 XX Last administered on 10/24/18at 01:06; Admin Dose 1 EA; Start 10/21/18 at 02:00 Miscellaneous Information 1 ea NOTE XX ; Start 10/20/18 at 10:30 Glucose (Glutose) 15 gm Q15M PRN PO DECREASED GLUCOSE; Start 10/20/18 at 10:30 Glucose (Glutose) 22.5 gm Q15M PRN PO DECREASED GLUCOSE Last administered on 10/20/18at 17:16; Admin Dose 22.5 GM; Start 10/20/18 at 10:30 Dextrose (D50w Syringe) 25 ml Q15M PRN IV DECREASED GLUCOSE Last administered on 10/20/18at 17:34; Admin Dose 25 ML; Start 10/20/18 at 10:30 Dextrose (D50w Syringe) 50 ml Q15M PRN IV DECREASED GLUCOSE; Start 10/20/18 at 10:30 Glucagon (Glucagen) 1 mg Q15M PRN IM DECREASED GLUCOSE; Start 10/20/18 at 10:30 Glucose (Glutose) 15 gm Q15M PRN BUCCAL DECREASED GLUCOSE; Start 10/20/18 at 10:30 Heparin Sodium (Porcine) (Heparin (1000 Units/ml)) 3,700 unit AFTER DIALYSIS CATHETER Last administered on 10/24/18at 13:20; Admin Dose 3,700 UNIT; Start 10/21/18 at 08:00 Trimethobenzamide HCl (Tigan) 200 mg Q6H PRN IM NAUSEA AND/OR VOMITING Last administered on 10/25/18at 13:55; Admin Dose 200 MG; Start 10/21/18 at 13:00 Calcium Carbonate (Ca Carbonate) 750 mg Q2H PRN PO GI; Start 10/21/18 at 15:00 Clonidine (Catapres) 0.4 mg BID PO Last administered on 10/25/18at 08:29; Admin Dose 0.4 MG; Start 10/21/18 at 14:00 Hydromorphone HCl (Dilaudid) 2 mg Q4H PRN PO PAIN; Start 10/21/18 at 14:00 Labetalol HCl (Normodyne) 1,200 mg BID PO Last administered on 10/25/18at 08:31; Admin Dose 1,200 MG; Start 10/21/18 at 14:00 Loperamide HCl (Imodium Cap) 2 mg TID PRN PO DIARRHEA Last administered on 10/25/18at 00:22; Admin Dose 2 MG; Start 10/21/18 at 14:00 Pantoprazole (Protonix Tab) 40 mg BID PO ; Start 10/21/18 at 14:00; Status Hold Ondansetron HCl 8 mg/Sodium Chloride 54 ml @ 216 mls/hr Q4H PRN IV NAUSEA AND/OR VOMITING Last administered on 10/25/18 09:49; Admin Dose 216 MLS/HR; Start 10/21/18 at 14:30 Insulin Aspart (Novolog Insulin Pen) NOVOLOG *CUSTOM* ALGORITHM AC MEALS AND BEDTIME SC Last administered on 10/25/18 12:01; Admin Dose 1 UNIT; Start 10/21/18 at 21:00 Al Hydrox/Mg Hydrox/Simethicone (Mag-Al Plus) 30 ml Q6H PRN PO GASTROINTESTINAL UPSET; Start 10/22/18 at 01:30 Epoetin Vic-epbx (RETACRIT(esrd)) 10,000 unit MoWeFr@1700 SC Last administered on 10/23/18 17:44; Admin Dose 10,000 UNIT; Start 10/23/18 at 17:00 Enalaprilat (Vasotec Iv) 1.25 mg Q6H PRN IV BLOOD PRESSURE SUPPORT; Start 10/22/18 at 11:00; Status Hold Pantoprazole (Protonix Iv) 40 mg BID@06,18 IV Last administered on 10/25/18 06:12; Admin Dose 40 MG; Start 10/22/18 at 11:00 Levalbuterol (Xopenex Neb) 0.63 mg Q4H RESP THERAPY PRN HHN WHEEZING; Start 10/22/18 at 11:00 Methylnaltrexone [place] (Relistor) 12 mg Q48H SC Last administered on 10/22/18at 15:56; Admin Dose 12 MG; Start 10/22/18 at 15:30 Diphenhydramine HCl (Benadryl) 25 mg Q4 PRN IV ITCHING Last administered on 10/25/18 12:27; Admin Dose 25 MG; Start 10/24/18 at 10:00 Hydralazine HCl (Apresoline) 100 mg TID PO Last administered on 10/25/18 12:27; Admin Dose 100 MG; Start 10/25/18 at 09:00 Labetalol HCl (Labetalol) 20 mg Q4H PRN IV ELEVATED BLOOD PRESSURE Last administered on 4/26/19at 14:08; Admin Dose 20 MG; Start 10/25/18 at 15:00 Spironolactone (Aldactone) 50 mg BID PO ; Start 10/25/18 at 21:00 Hydralazine HCl (Apresoline) 20 mg Q4H PRN IV SYS BP > 150 Last administered on 10/25/18at 14:08; Admin Dose 20 MG; Start 10/25/18 at 11:30 Insulin Aspart (Novolog Insulin Pen) 4 unit WITH MEALS SC ; Start 10/25/18 at 17:55 Insulin Glargine (Lantus) 12 units DAILY@1000 SC ; Start 10/26/18 at 10:00 Insulin Glargine (Lantus) 2 units ONCE ONCE SC ; Start 10/25/18 at 15:30; Stop 10/25/18 at 15:31 Hydromorphone HCl (Dilaudid) 1 mg Q3H PRN IV SEVERE PAIN LEVEL 7-10; Start 10/25/18 at 15:30 RORY CRUM NP Oct 25, 2018 15:11
--- NOTE | 2018-10-25 15:19 | QN ---
Documentation Comment GI ENDOSCOPY on standby. Holding for optimization of blood pressure. BP today still at 221/108. Anesthesia review . BP not optimized and patient is NOT safe for undergoing a procedure at this point. Will await hospitalist and cardiology optimization before re-attempt. Will tentatively hold a spot for endoscopy for Saturday 10/28. ELROY MURILLO Oct 25, 2018 15:19
[2018-10-25] MEDS: HYDROmorphONE 1 MG/ML SYG IV PRN ×3 (15:20→21:37)
[2018-10-25] MEDS ORDERED: INSULIN GLARGINE [LANTus] (100 UNITS/ML) SYG SC ONE (15:30)
--- NOTE | 2018-10-25 15:52 | PN ---
Date/Time of Note Date/Time of Note DATE: 10/25/18 TIME: 15:37 Assessment/Plan VTE Prophylaxis Risk score (from Nsg)>0 risk: 8 SCD applied (from Nsg): Yes Pharmacological prophylaxis: other Lines/Catheters IV Catheter Type (from Nrsg): Mid Line Urinary Cath still in place: No Assessment/Plan Assessment/Plan Assessment: Persistent nausea/vomiting -R/o 2/2 reduction in pain medication vs gastroparesis vs obstruction vs other Hx of gastroparesis Type I diabetes- with hyperglycemia H/p PUD IBS - D HTN Normocytic anemia ESRD- on HD Right tib/fib fracture- followed by ortho Hx of - last EGD about 3-4 months ago Plan: small bowel x-ray is negative for obstruction Check stool for H-pylori Order Levsin Start Carafate Continue Protonix BID EGD was rescheduled d/t hypertension Continue Zofran/Tigan Further recommendation based on clinical course Patient seen in collaboration with Dr. cannon Subjective: Course reviewed with nursing staff Patient interviewed and examined All labs, imaging and other results reviewed Patient had an episode of vomiting with SBP > 200. EGD on hold until BP improves. Will start Levsin for abd pain and Carafate for h/o . PHYSICAL EXAMINATION: GENERAL: Well developed, alert & oriented x 3, no distress SKIN: Dialysis catheter. EYES: Pupils equal reactive to light, no discharge. EARS/NOSE AND THROAT: Ears normal, nose normal NECK: Supple, no masses CHEST: Inspection within normal limits. CARDIOVASCULAR: Heart: Regular rate and rhythm RESPIRATORY: Lungs clear to auscultation GASTROINTESTINAL AND LIVER: Abdomen: Soft, Moderated epigastric tenderness, non- distended, no hernias, no masses, no organomegaly, no ascites, no guarding, no rebound tenderness, normoactive bowel sounds. Rectal: Deferred. EXTREMITIES: No cyanosis, clubbing or edema. RLE in brace Result Diagram: 10/25/18 0639 10/25/18 0639 Results 24hrs Laboratory Tests Test 10/24/18 17:57 10/24/18 20:15 10/25/18 00:01 10/25/18 00:21 Bedside Glucose 106 100 234 H Stool Occult Blood POSITIVE Test 10/25/18 06:39 10/25/18 08:07 10/25/18 10:27 10/25/18 11:43 White Blood Count 4.4 L Red Blood Count 3.21 #L Hemoglobin 9.6 #L Hematocrit 29.1 #L Mean Corpuscular 90.7 Volume Mean Corpuscular 29.9 Hemoglobin Mean Corpuscular 33.0 Hemoglobin Concent Red Cell 16.6 H Distribution Width Platelet Count 200 Mean Platelet Volume 9.7 Immature 0.500 H Granulocytes % Neutrophils % 73.6 Lymphocytes % 7.4 L Monocytes % 10.4 Eosinophils % 7.2 H Basophils % 0.9 Nucleated Red Blood 0.0 Cells % Immature 0.020 Granulocytes # Neutrophils # 3.3 Lymphocytes # 0.3 L Monocytes # 0.5 Eosinophils # 0.3 Basophils # 0.0 Nucleated Red Blood 0.0 Cells # Sodium Level 140 Potassium Level 4.3 Chloride Level 102 Carbon Dioxide Level 24 Anion Gap 14 H Blood Urea Nitrogen 28 H Creatinine 3.93 #H Est Glomerular 14 L Filtrat Rate mL/min Glucose Level 230 H Calcium Level 9.0 Bedside Glucose 217 218 235 H CC: FARIDA CANNON MD ; Exam/Review of Systems Exam Vitals Vital Signs Date Temp Pulse Resp B/P (MAP) Pulse Ox O2 O2 Flow FiO2 Time Delivery Rate 10/25/18 98.2 81 19 235/109 99 Nasal 1.0 15:21 (151) Cannula 10/22/18 21 08:28 Intake and Output 10/24/18 10/24/18 10/25/18 1515:00 23:00 07:00 IntakeIntake Total 300 ml OutputOutput Total 2500 ml BalanceBalance -2500 ml 300 ml Results Results 24hrs Laboratory Tests Test 10/24/18 17:57 10/24/18 20:15 10/25/18 00:01 10/25/18 00:21 Bedside Glucose 106 100 234 H Stool Occult Blood POSITIVE Test 10/25/18 06:39 10/25/18 08:07 10/25/18 10:27 10/25/18 11:43 White Blood Count 4.4 L Red Blood Count 3.21 #L Hemoglobin 9.6 #L Hematocrit 29.1 #L Mean Corpuscular 90.7 Volume Mean Corpuscular 29.9 Hemoglobin Mean Corpuscular 33.0 Hemoglobin Concent Red Cell 16.6 H Distribution Width Platelet Count 200 Mean Platelet Volume 9.7 Immature 0.500 H Granulocytes % Neutrophils % 73.6 Lymphocytes % 7.4 L Monocytes % 10.4 Eosinophils % 7.2 H Basophils % 0.9 Nucleated Red Blood 0.0 Cells % Immature 0.020 Granulocytes # Neutrophils # 3.3 Lymphocytes # 0.3 L Monocytes # 0.5 Eosinophils # 0.3 Basophils # 0.0 Nucleated Red Blood 0.0 Cells # Sodium Level 140 Potassium Level 4.3 Chloride Level 102 Carbon Dioxide Level 24 Anion Gap 14 H Blood Urea Nitrogen 28 H Creatinine 3.93 #H Est Glomerular 14 L Filtrat Rate mL/min Glucose Level 230 H Calcium Level 9.0 Bedside Glucose 217 218 235 H Medications Medication Current Medications Nitroglycerin (Nitroglycerin (Sl Tab) 0.4 Mg) 1 tab Q5M PRN SL CHEST PAIN Last administered on 10/20/18at 12:28; Admin Dose 1 TAB; Start 10/20/18 at 00:00 Acetaminophen (Tylenol Liquid) 650 mg Q6H PRN PO PAIN LEVEL 1-3 OR FEVER; Start 10/20/18 at 00:00 Docusate Sodium (Colace) 100 mg Q12H PRN PO CONSTIPATION; Start 10/20/18 at 00:00 Bisacodyl (Dulcolax) 5 mg DAILY PRN PO CONSTIPATION; Start 10/20/18 at 00:00 Clonidine HCl (Catapres-Tts 3 Patch) 2 patch Q7D TRANSDERM Last administered on 10/21/18at 10:19; Admin Dose 2 PATCH; Start 10/21/18 at 09:00 Diagnostic Test (Pha) (Accu-Chek) 1 ea 02 XX Last administered on 10/24/18at 01:06; Admin Dose 1 EA; Start 10/21/18 at 02:00 Miscellaneous Information 1 ea NOTE XX ; Start 10/20/18 at 10:30 Glucose (Glutose) 15 gm Q15M PRN PO DECREASED GLUCOSE; Start 10/20/18 at 10:30 Glucose (Glutose) 22.5 gm Q15M PRN PO DECREASED GLUCOSE Last administered on 10/20/18at 17:16; Admin Dose 22.5 GM; Start 10/20/18 at 10:30 Dextrose (D50w Syringe) 25 ml Q15M PRN IV DECREASED GLUCOSE Last administered on 10/20/18at 17:34; Admin Dose 25 ML; Start 10/20/18 at 10:30 Dextrose (D50w Syringe) 50 ml Q15M PRN IV DECREASED GLUCOSE; Start 10/20/18 at 10:30 Glucagon (Glucagen) 1 mg Q15M PRN IM DECREASED GLUCOSE; Start 10/20/18 at 10:30 Glucose (Glutose) 15 gm Q15M PRN BUCCAL DECREASED GLUCOSE; Start 10/20/18 at 10:30 Heparin Sodium (Porcine) (Heparin (1000 Units/ml)) 3,700 unit AFTER DIALYSIS CATHETER Last administered on 10/24/18at 13:20; Admin Dose 3,700 UNIT; Start 10/21/18 at 08:00 Trimethobenzamide HCl (Tigan) 200 mg Q6H PRN IM NAUSEA AND/OR VOMITING Last administered on 10/25/18 13:55; Admin Dose 200 MG; Start 10/21/18 at 13:00 Calcium Carbonate (Ca Carbonate) 750 mg Q2H PRN PO GI; Start 10/21/18 at 15:00 Clonidine (Catapres) 0.4 mg BID PO Last administered on 10/25/18at 08:29; Admin Dose 0.4 MG; Start 10/21/18 at 14:00 Hydromorphone HCl (Dilaudid) 2 mg Q4H PRN PO PAIN; Start 10/21/18 at 14:00 Labetalol HCl (Normodyne) 1,200 mg BID PO Last administered on 10/25/18at 08:31; Admin Dose 1,200 MG; Start 10/21/18 at 14:00 Loperamide HCl (Imodium Cap) 2 mg TID PRN PO DIARRHEA Last administered on 10/25/18at 00:22; Admin Dose 2 MG; Start 10/21/18 at 14:00 Pantoprazole (Protonix Tab) 40 mg BID PO ; Start 10/21/18 at 14:00; Status Hold Ondansetron HCl 8 mg/Sodium Chloride 54 ml @ 216 mls/hr Q4H PRN IV NAUSEA AND/OR VOMITING Last administered on 10/25/18at 09:49; Admin Dose 216 MLS/HR; Start 10/21/18 at 14:30 Insulin Aspart (Novolog Insulin Pen) NOVOLOG *CUSTOM* ALGORITHM AC MEALS AND BEDTIME SC Last administered on 10/25/18at 12:01; Admin Dose 1 UNIT; Start 10/21/18 at 21:00 Al Hydrox/Mg Hydrox/Simethicone (Mag-Al Plus) 30 ml Q6H PRN PO GASTROINTESTINAL UPSET; Start 10/22/18 at 01:30 Epoetin Vic-epbx (RETACRIT(esrd)) 10,000 unit MoWeFr@1700 SC Last administered on 10/23/18at 17:44; Admin Dose 10,000 UNIT; Start 10/23/18 at 17:00 Enalaprilat (Vasotec Iv) 1.25 mg Q6H PRN IV BLOOD PRESSURE SUPPORT; Start 10/22/18 at 11:00; Status Hold Pantoprazole (Protonix Iv) 40 mg BID@,18 IV Last administered on 10/25/18at 06:12; Admin Dose 40 MG; Start 10/22/18 at 11:00 Levalbuterol (Xopenex Neb) 0.63 mg Q4H RESP THERAPY PRN HHN WHEEZING; Start 10/22/18 at 11:00 Methylnaltrexone [place] (Relistor) 12 mg Q48H SC Last administered on 10/22/18at 15:56; Admin Dose 12 MG; Start 10/22/18 at 15:30 Diphenhydramine HCl (Benadryl) 25 mg Q4 PRN IV ITCHING Last administered on 10/25/18at 12:27; Admin Dose 25 MG; Start 10/24/18 at 10:00 Hydralazine HCl (Apresoline) 100 mg TID PO Last administered on 10/25/18at 12:27; Admin Dose 100 MG; Start 10/25/18 at 09:00 Labetalol HCl (Labetalol) 20 mg Q4H PRN IV ELEVATED BLOOD PRESSURE Last administered on 10/25/18at 14:08; Admin Dose 20 MG; Start 10/25/18 at 15:00 Spironolactone (Aldactone) 50 mg BID PO ; Start 10/25/18 at 21:00 Hydralazine HCl (Apresoline) 20 mg Q4H PRN IV SYS BP > 150 Last administered on 10/25/18at 14:08; Admin Dose 20 MG; Start 10/25/18 at 11:30 Insulin Aspart (Novolog Insulin Pen) 4 unit WITH MEALS SC ; Start 10/25/18 at 17:55 Insulin Glargine (Lantus) 12 units DAILY@1000 SC ; Start 10/26/18 at 10:00 Hydromorphone HCl (Dilaudid) 1 mg Q3H PRN IV SEVERE PAIN LEVEL 7-10 Last administered on 10/25/18at 15:20; Admin Dose 1 MG; Start 10/25/18 at 15:30 ESTEFANY TAMAYO NP Oct 25, 2018 15:47
[2018-10-25] MEDS: HYOSCYAMINE 0.125 MG SUBL TAB PO SCH ×2 (17:21→23:28)
[2018-10-25] MEDS: SUCRALFATE 1 GM TAB PO SCH ×2 (17:21→23:26)
[2018-10-25] MEDS: EPOETIN ALFA-EPBX (ESRD) 10,000 UNIT/ML VIAL SC SCH (18:39)
[2018-10-25] MEDS: HEPARIN 1000 UNITS/ML 10 ML INJ CATHETER SCH (23:22)
[2018-10-26] VITALS (22 sets, daily range): BP systolic 132–242; BP diastolic 63–116; PULSE 77–94; RESP 17–20
[2018-10-26] MEDS: LOPERAMIDE 2 MG CAP PO PRN (00:21)
[2018-10-26] MEDS: HYDROmorphONE 1 MG/ML SYG IV PRN ×7 (00:26→21:02)
[2018-10-26] MEDS: DIPHENHYDRAMINE 50 MG INJ IV PRN ×6 (01:15→21:04)
[2018-10-26] MEDS: hydrALAzine 20 MG INJ IV PRN ×2 (01:19→05:42)
[2018-10-26] MEDS: ACCU-CHEK XX SCH (01:21)
[2018-10-26] MEDS: LABETALOL HCL 20MG INJ IV PRN (02:38)
[2018-10-26] MEDS: PANTOPRAZOLE 40 MG INJ IV SCH ×2 (05:05→18:28)
[2018-10-26] MEDS: HYOSCYAMINE 0.125 MG SUBL TAB PO SCH ×3 (05:06→23:06)
[2018-10-26] MEDS: ONDANSETRON INJ 8 MG in SOD CHLORIDE 0.9% 50 ML IV PRN ×2 (05:37→14:17)
[2018-10-26] MEDS: INSULIN ASPART [NOVOLOG] 3 ML PEN SC SCH ×7 (07:55→20:39)
[2018-10-26] MEDS: SPIRONOLACTONE 25 MG TAB PO SCH (09:14)
[2018-10-26] MEDS: SUCRALFATE 1 GM TAB PO SCH ×4 (09:15→21:01)
--- NOTE | 2018-10-26 09:24 | PN ---
DATE: 10/26/2018 SUBJECTIVE: The patient is stable. The patient continues to have episodes of hypertension. The jesica ent had hemodialysis yesterday, tolerated it well, approximately 2 liters removed. No other events n oted. No hemoptysis, hematemesis or hematochezia. OBJECTIVE: VITAL SIGNS: Blood pressure is 140/63, respirations 20, pulse 86, temperature 98.6. HEENT: Head is normocephalic. NECK: Supple. HEART: Regular rate. LUNGS: Show diminished breath sounds at the base. ABDOMEN: Soft, nontender to palpation without rebound or guarding. EXTREMITIES: Negative for clubbing, cyanosis, no edema. DERMATOLOGIC: No rashes. MUSCULOSKELETAL: No joint effusion. NEUROLOGIC: No change in exam. MEDICATIONS: The patient's medications have been reviewed. LABORATORY DATA: Has been reviewed. ASSESSMENT AND PLAN: 1. End-stage renal disease. Patient has been receiving daily dialysis for solute clearance and volu me removal. Anticipate hemodialysis again tomorrow for 3 hours 3k bath, calcium 2.5. 2. Hypertensive urgency. Etiology is multifactorial secondary to increased intravascular volume. 3. End-stage renal disease. The patient's blood pressures remain elevated but appears to be slowly improving. The patient tolerated Losartan. Will up titrate. Continue ultrafiltration dialysis. Co ntinue current blood pressure regimen. 4. Anemia. Monitor hemoglobin and hematocrit levels. Continue Epogen. 5. Mineral bone disorder, monitor calcium and phosphorus levels. 6. Opiate withdrawal. Continue medical management. 7. Right tibiofibular fracture. The patient is status post soft cast. Continue conservative manage ment, pain control. 8. Cellulitis. Patient has completed an antibiotic course. 9. Diabetes. Continue current insulin regimen. 10. Dyspepsia, nausea, vomiting. The patient's small bowel follow through was negative for obstruct ion. Continue medical management, possible EGD once blood pressure is better controlled. Dictated By: JUJU MARTINEZ DO NR/NTS Conf#: [id number] DID#: [id number] CC: NAYAN WILLIS; VERITO GARCIA MD; CHEMA LUGO MD;*EndCC*
[2018-10-26] MEDS: INSULIN GLARGINE [LANTus] (100 UNITS/ML) SYG SC SCH (09:27)
[2018-10-26] MEDS ORDERED: LOSARTAN 50 MG TAB PO SCH (10:00)
[2018-10-26] MEDS: LABETALOL 200 MG TAB PO SCH ×2 (10:44→23:04)
--- NOTE | 2018-10-26 10:56 | PN ---
Date/Time of Note Date/Time of Note DATE: 10/26/18 TIME: 10:30 Assessment/Plan VTE Prophylaxis Risk score (from Nsg)>0 risk: 10 SCD applied (from Nsg): Yes Pharmacological prophylaxis: other (scds) Lines/Catheters IV Catheter Type (from Nrsg): Mid Line Urinary Cath still in place: No Assessment/Plan Hospital Course Assessment: Persistent nausea/vomiting -R/o 2/2 reduction in pain medication vs gastroparesis vs obstruction vs other Hx of gastroparesis Type I diabetes- with hyperglycemia H/p PUD IBS - D HTN Normocytic anemia ESRD- on HD Right tib/fib fracture- followed by ortho Hx of - last EGD about 3-4 months ago Plan: Full liquid diet - patient feels she has too much n/v for solid foods and gastric emptying study Continue Protonix BID EGD was rescheduled d/t hypertension- likely Sunday Stool for H. pylori- pending Continue Zofran/Tigan Further recommendation based on clinical course Patient seen in collaboration with Dr. augustine Subjective: Course reviewed with nursing staff Patient interviewed and examined All labs, imaging and other results reviewed EGD rescheduled x2 for SBP >200 Currently she is feeling a little better, seems to be tolerating cl liq diet She continues to have intermittent diarrhea- she feels 2/2 to x3 boost she drank yesterday PHYSICAL EXAMINATION: GENERAL: Well developed, alert & oriented x 3, no distress SKIN: Dialysis catheter. EYES: Pupils equal reactive to light, no discharge. EARS/NOSE AND THROAT: Ears normal, nose normal NECK: Supple, no masses CHEST: Inspection within normal limits. CARDIOVASCULAR: Heart: Regular rate and rhythm RESPIRATORY: Lungs clear to auscultation GASTROINTESTINAL AND LIVER: Abdomen: Soft, Moderated epigastric tenderness, non- distended, no hernias, no masses, no organomegaly, no ascites, no guarding, no rebound tenderness, normoactive bowel sounds. Rectal: Deferred. EXTREMITIES: No cyanosis, clubbing or edema. RLE in brace Result Diagram: 10/26/18 0640 10/26/18 0639 Results 24hrs Laboratory Tests Test 10/25/18 11:43 10/25/18 17:51 10/25/18 20:44 10/26/18 06:39 Bedside Glucose 235 H 182 138 Sodium Level 142 Potassium Level 4.1 Chloride Level 103 Carbon Dioxide Level 24 Anion Gap 15 H Blood Urea Nitrogen 18 # Creatinine 3.10 H Est Glomerular 18 L Filtrat Rate mL/min Glucose Level 329 H Calcium Level 9.4 Test 10/26/18 06:40 10/26/18 09:09 White Blood Count 4.7 L Red Blood Count 3.25 L Hemoglobin 9.6 L Hematocrit 29.8 L Mean Corpuscular 91.7 Volume Mean Corpuscular 29.5 Hemoglobin Mean Corpuscular 32.2 Hemoglobin Concent Red Cell 16.4 H Distribution Width Platelet Count 210 Mean Platelet Volume 9.8 Immature 0.200 Granulocytes % Neutrophils % 77.9 H Lymphocytes % 5.9 L Monocytes % 8.5 Eosinophils % 6.2 Basophils % 1.3 Nucleated Red Blood 0.0 Cells % Immature 0.010 Granulocytes # Neutrophils # 3.7 Lymphocytes # 0.3 L Monocytes # 0.4 Eosinophils # 0.3 Basophils # 0.1 Nucleated Red Blood 0.0 Cells # Bedside Glucose 382 H Exam/Review of Systems Exam Vitals Vital Signs Date Temp Pulse Resp B/P (MAP) Pulse Ox O2 O2 Flow FiO2 Time Delivery Rate 10/26/18 87 08:00 10/26/18 98.6 20 140/63 99 Nasal 07:18 (88) Cannula 10/25/18 1.0 20:00 10/22/18 21 08:28 Intake and Output 10/25/18 10/25/18 10/26/18 1515:00 23:00 07:00 IntakeIntake Total 54 ml 528 ml 854 ml OutputOutput Total 2400 ml BalanceBalance 54 ml -1872 ml 854 ml Results Results 24hrs Laboratory Tests Test 10/25/18 11:43 10/25/18 17:51 10/25/18 20:44 10/26/18 06:39 Bedside Glucose 235 H 182 138 Sodium Level 142 Potassium Level 4.1 Chloride Level 103 Carbon Dioxide Level 24 Anion Gap 15 H Blood Urea Nitrogen 18 # Creatinine 3.10 H Est Glomerular 18 L Filtrat Rate mL/min Glucose Level 329 H Calcium Level 9.4 Test 10/26/18 06:40 10/26/18 09:09 White Blood Count 4.7 L Red Blood Count 3.25 L Hemoglobin 9.6 L Hematocrit 29.8 L Mean Corpuscular 91.7 Volume Mean Corpuscular 29.5 Hemoglobin Mean Corpuscular 32.2 Hemoglobin Concent Red Cell 16.4 H Distribution Width Platelet Count 210 Mean Platelet Volume 9.8 Immature 0.200 Granulocytes % Neutrophils % 77.9 H Lymphocytes % 5.9 L Monocytes % 8.5 Eosinophils % 6.2 Basophils % 1.3 Nucleated Red Blood 0.0 Cells % Immature 0.010 Granulocytes # Neutrophils # 3.7 Lymphocytes # 0.3 L Monocytes # 0.4 Eosinophils # 0.3 Basophils # 0.1 Nucleated Red Blood 0.0 Cells # Bedside Glucose 382 H Medications Medication Current Medications Nitroglycerin (Nitroglycerin (Sl Tab) 0.4 Mg) 1 tab Q5M PRN SL CHEST PAIN Last administered on 10/20/18at 12:28; Admin Dose 1 TAB; Start 10/20/18 at 00:00 Acetaminophen (Tylenol Liquid) 650 mg Q6H PRN PO PAIN LEVEL 1-3 OR FEVER; Start 10/20/18 at 00:00 Docusate Sodium (Colace) 100 mg Q12H PRN PO CONSTIPATION; Start 10/20/18 at 00:00 Bisacodyl (Dulcolax) 5 mg DAILY PRN PO CONSTIPATION; Start 10/20/18 at 00:00 Clonidine HCl (Catapres-Tts 3 Patch) 2 patch Q7D TRANSDERM Last administered on 10/21/18at 10:19; Admin Dose 2 PATCH; Start 10/21/18 at 09:00 Diagnostic Test (Pha) (Accu-Chek) 1 ea 02 XX Last administered on 10/24/18at 01:06; Admin Dose 1 EA; Start 10/21/18 at 02:00 Miscellaneous Information 1 ea NOTE XX ; Start 10/20/18 at 10:30 Glucose (Glutose) 15 gm Q15M PRN PO DECREASED GLUCOSE; Start 10/20/18 at 10:30 Glucose (Glutose) 22.5 gm Q15M PRN PO DECREASED GLUCOSE Last administered on 10/20/18at 17:16; Admin Dose 22.5 GM; Start 10/20/18 at 10:30 Dextrose (D50w Syringe) 25 ml Q15M PRN IV DECREASED GLUCOSE Last administered on 10/20/18at 17:34; Admin Dose 25 ML; Start 10/20/18 at 10:30 Dextrose (D50w Syringe) 50 ml Q15M PRN IV DECREASED GLUCOSE; Start 10/20/18 at 10:30 Glucagon (Glucagen) 1 mg Q15M PRN IM DECREASED GLUCOSE; Start 10/20/18 at 10:30 Glucose (Glutose) 15 gm Q15M PRN BUCCAL DECREASED GLUCOSE; Start 10/20/18 at 10:30 Heparin Sodium (Porcine) (Heparin (1000 Units/ml)) 3,700 unit AFTER DIALYSIS CATHETER Last administered on 10/25/18at 23:22; Admin Dose 3,700 UNIT; Start 10/21/18 at 08:00 Trimethobenzamide HCl (Tigan) 200 mg Q6H PRN IM NAUSEA AND/OR VOMITING Last administered on 10/25/18at 13:55; Admin Dose 200 MG; Start 10/21/18 at 13:00 Calcium Carbonate (Ca Carbonate) 750 mg Q2H PRN PO GI; Start 10/21/18 at 15:00 Clonidine (Catapres) 0.4 mg BID PO Last administered on 10/25/18at 23:24; Admin Dose 0.4 MG; Start 10/21/18 at 14:00 Hydromorphone HCl (Dilaudid) 2 mg Q4H PRN PO PAIN; Start 10/21/18 at 14:00 Labetalol HCl (Normodyne) 1,200 mg BID PO Last administered on 10/25/18at 23:26; Admin Dose 1,200 MG; Start 10/21/18 at 14:00 Loperamide HCl (Imodium Cap) 2 mg TID PRN PO DIARRHEA Last administered on 10/26/18at 00:21; Admin Dose 2 MG; Start 10/21/18 at 14:00 Pantoprazole (Protonix Tab) 40 mg BID PO ; Start 10/21/18 at 14:00; Status Hold Ondansetron HCl 8 mg/Sodium Chloride 54 ml @ 216 mls/hr Q4H PRN IV NAUSEA AND/OR VOMITING Last administered on 10/26/18at 05:37; Admin Dose 216 MLS/HR; Start 10/21/18 at 14:30 Insulin Aspart (Novolog Insulin Pen) NOVOLOG *CUSTOM* ALGORITHM AC MEALS AND BEDTIME SC Last administered on 10/26/18 09:27; Admin Dose 3 UNIT; Start 10/21/18 at 21:00 Al Hydrox/Mg Hydrox/Simethicone (Mag-Al Plus) 30 ml Q6H PRN PO GASTROINTESTINAL UPSET; Start 10/22/18 at 01:30 Epoetin Vic-epbx (RETACRIT(esrd)) 10,000 unit MoWeFr@1700 SC Last administered on 10/25/18at 18:39; Admin Dose 10,000 UNIT; Start 10/23/18 at 17:00 Enalaprilat (Vasotec Iv) 1.25 mg Q6H PRN IV BLOOD PRESSURE SUPPORT; Start 10/22/18 at 11:00; Status Hold Pantoprazole (Protonix Iv) 40 mg BID@06,18 IV Last administered on 10/26/18 05:05; Admin Dose 40 MG; Start 10/22/18 at 11:00 Levalbuterol (Xopenex Neb) 0.63 mg Q4H RESP THERAPY PRN HHN WHEEZING; Start 10/22/18 at 11:00 Methylnaltrexone [place] (Relistor) 12 mg Q48H SC Last administered on 10/22/18at 15:56; Admin Dose 12 MG; Start 10/22/18 at 15:30 Hydralazine HCl (Apresoline) 100 mg TID PO Last administered on 10/26/18 09:14; Admin Dose 100 MG; Start 10/25/18 at 09:00 Labetalol HCl (Labetalol) 20 mg Q4H PRN IV ELEVATED BLOOD PRESSURE Last administered on 10/26/18at 02:38; Admin Dose 20 MG; Start 10/25/18 at 15:00 Spironolactone (Aldactone) 50 mg BID PO Last administered on 10/26/18at 09:14; Admin Dose 50 MG; Start 10/25/18 at 21:00 Hydralazine HCl (Apresoline) 20 mg Q4H PRN IV SYS BP > 150 Last administered on 10/26/18at 05:42; Admin Dose 20 MG; Start 10/25/18 at 11:30 Insulin Aspart (Novolog Insulin Pen) 4 unit WITH MEALS SC ; Start 10/25/18 at 17:55 Insulin Glargine (Lantus) 12 units DAILY@1000 SC Last administered on 10/26/18at 09:27; Admin Dose 12 UNITS; Start 10/26/18 at 10:00 Hydromorphone HCl (Dilaudid) 1 mg Q3H PRN IV SEVERE PAIN LEVEL 7-10 Last administered on 10/26/18 09:15; Admin Dose 1 MG; Start 10/25/18 at 15:30 Sucralfate (Carafate) 1 gm QID PO Last administered on 10/26/18 09:15; Admin Dose 1 GM; Start 10/25/18 at 17:00 Hyoscyamine (Levsin (Sl)) 0.125 mg Q8 PO Last administered on 10/26/18 05:06; Admin Dose 0.125 MG; Start 10/25/18 at 16:00 Diphenhydramine HCl (Benadryl) 50 mg PRN PRN IV ITCHING Last administered on 10/26/18at 01:15; Admin Dose 50 MG; Start 10/25/18 at 17:00 Diphenhydramine HCl (Benadryl) 25 mg PRN PRN IV ITCHING Last administered on 10/26/18 05:36; Admin Dose 25 MG; Start 10/25/18 at 17:00 Losartan Potassium (Cozaar) 50 mg DAILY PO ; Start 10/26/18 at 10:00 KAYLA BARILLAS Oct 26, 2018 10:40
[2018-10-26] MEDS ORDERED: NIFEdipine (XL) 60 MG TAB PO SCH (11:30)
[2018-10-26] MEDS: TRIMETHOBENZAMIDE 100 MG/ML VIAL IM PRN (11:43)
--- NOTE | 2018-10-26 11:54 | CONS ---
Assessment/Plan Assessment/Plan Hospital Course (Demo Recall) Hypertensive urgency/malignant HTN: Apparently at home BP is 150s on home regimen so likely contribution here from pain, N/V, volume status. Needs better control N/V: being evaluated by GI.?gastroparesis especially with pain meds Right tibiofibular fracture due to mechanical fall ESRD on HD DM -increase losartan to 100mg -would like to retry nidedipine/amlodipine but pt refuses -could try isordil as well but doubt it will help much -continue hydralazine 100mg TID -labetolol 1200mg BID -clonidine patch and 0.4mg BID -caution with aldactone 50mg BID in setting of HD but per pt her K is usually normal Consultation Date/Type/Reason Admit Date/Time Oct 19, 2018 at 23:42 Date of Consultation: Oct 26, 2018 Type of Consult Cardiology Reason for Consultation HTN control Requesting Provider: NAYAN WILLIS Date/Time of Note DATE: 10/26/18 TIME: 11:46 Hx of Present Illness 28 yo F with a h/o ESRD on HD, HTN, DM, presenting s/p fall and found to have a right tibiofibular fracture. She also has been having N/V and is planned to have an EGD +/- gastric emptying study. Her BP has been difficult to control and is often >200s. She notes that the BP is higher when she has not received pain meds for her fracture. At home she takes labetolol, clonidine patch and tablets, aldactone, hydralazine. She has tried nifedipine and amlodipine but it gave her leg edema so she refuses to try again. Otherwise no chest pain or SOB. Past Medical History per hPI Home Meds Reported Medications Pantoprazole (Protonix) 40 Mg Tabec, 40 MG PO BID, TAB 10/21/18 Loperamide Hcl* (Imodium*) 2 Mg Capsule, 2 MG PO TID PRN for DIARRHEA, CAP MAX 16 mg/day 10/21/18 Insulin Glargine* (Lantus*) 100 Unit/Ml Soln, 10 UNIT SC DAILY, #1 VIAL 10/21/18 Insulin Lispro (Humalog) 100 Unit/1 Ml Cartridge, 100 UNIT SQ SLIDING SCALE 5-15 U, EA 10/21/18 Lorazepam* (Lorazepam*) 0.5 Mg Tablet, 0.5 MG PO Q6 PRN for AGITATION/ANXIETY, TAB 10/21/18 Calcium Carbonate* (Tums X-Str) 300 Mg Tab.chew, 300 MG PO Q2H PRN for GASTROINTESTINAL UPSET, TAB.CHEW 10/21/18 Clonidine Hcl* (Clonidine Hcl*) 0.3 Mg Tablet, 0.4 MG PO BID, TAB 10/21/18 Hydralazine Hcl* (Hydralazine Hcl*) 50 Mg Tab, 100 MG PO BID, #180 TAB 10/21/18 Spironolactone* (Spironolactone*) 100 Mg Tablet, 25 MG PO BID, TAB 10/21/18 Labetalol Hcl (Normodyne) 200 Mg Tablet, 1200 MG PO BID, TAB 10/21/18 Hydromorphone Hcl (Dilaudid) 2 Mg Tab, 2 MG PO Q4 PRN for PAIN, TAB 10/21/18 Clonidine Patch (CLONIDINE PATCH) 0.3 Mg/24 Hr Patch, 2 PATCH.WK TD Q7D, #4 PATCH.WK 10/21/18 Medications Current Medications Nitroglycerin (Nitroglycerin (Sl Tab) 0.4 Mg) 1 tab Q5M PRN SL CHEST PAIN Last administered on 10/20/18at 12:28; Admin Dose 1 TAB; Start 10/20/18 at 00:00 Acetaminophen (Tylenol Liquid) 650 mg Q6H PRN PO PAIN LEVEL 1-3 OR FEVER; Start 10/20/18 at 00:00 Docusate Sodium (Colace) 100 mg Q12H PRN PO CONSTIPATION; Start 10/20/18 at 00:00 Bisacodyl (Dulcolax) 5 mg DAILY PRN PO CONSTIPATION; Start 10/20/18 at 00:00 Clonidine HCl (Catapres-Tts 3 Patch) 2 patch Q7D TRANSDERM Last administered on 10/21/18at 10:19; Admin Dose 2 PATCH; Start 10/21/18 at 09:00 Diagnostic Test (Pha) (Accu-Chek) 1 ea 02 XX Last administered on 10/24/18at 01:06; Admin Dose 1 EA; Start 10/21/18 at 02:00 Miscellaneous Information 1 ea NOTE XX ; Start 10/20/18 at 10:30 Glucose (Glutose) 15 gm Q15M PRN PO DECREASED GLUCOSE; Start 10/20/18 at 10:30 Glucose (Glutose) 22.5 gm Q15M PRN PO DECREASED GLUCOSE Last administered on 10/20/18at 17:16; Admin Dose 22.5 GM; Start 10/20/18 at 10:30 Dextrose (D50w Syringe) 25 ml Q15M PRN IV DECREASED GLUCOSE Last administered on 10/20/18at 17:34; Admin Dose 25 ML; Start 10/20/18 at 10:30 Dextrose (D50w Syringe) 50 ml Q15M PRN IV DECREASED GLUCOSE; Start 10/20/18 at 10:30 Glucagon (Glucagen) 1 mg Q15M PRN IM DECREASED GLUCOSE; Start 10/20/18 at 10:30 Glucose (Glutose) 15 gm Q15M PRN BUCCAL DECREASED GLUCOSE; Start 10/20/18 at 10:30 Heparin Sodium (Porcine) (Heparin (1000 Units/ml)) 3,700 unit AFTER DIALYSIS CATHETER Last administered on 10/25/18at 23:22; Admin Dose 3,700 UNIT; Start 10/21/18 at 08:00 Trimethobenzamide HCl (Tigan) 200 mg Q6H PRN IM NAUSEA AND/OR VOMITING Last administered on 10/26/18at 11:43; Admin Dose 200 MG; Start 10/21/18 at 13:00 Calcium Carbonate (Ca Carbonate) 750 mg Q2H PRN PO GI; Start 10/21/18 at 15:00 Clonidine (Catapres) 0.4 mg BID PO Last administered on 10/26/18at 10:45; Admin Dose 0.4 MG; Start 10/21/18 at 14:00 Hydromorphone HCl (Dilaudid) 2 mg Q4H PRN PO PAIN; Start 10/21/18 at 14:00 Labetalol HCl (Normodyne) 1,200 mg BID PO Last administered on 10/26/18at 10:44; Admin Dose 1,200 MG; Start 10/21/18 at 14:00 Loperamide HCl (Imodium Cap) 2 mg TID PRN PO DIARRHEA Last administered on 10/26/18at 00:21; Admin Dose 2 MG; Start 10/21/18 at 14:00 Pantoprazole (Protonix Tab) 40 mg BID PO ; Start 10/21/18 at 14:00; Status Hold Ondansetron HCl 8 mg/Sodium Chloride 54 ml @ 216 mls/hr Q4H PRN IV NAUSEA AND/OR VOMITING Last administered on 10/26/18 05:37; Admin Dose 216 MLS/HR; Start 10/21/18 at 14:30 Insulin Aspart (Novolog Insulin Pen) NOVOLOG *CUSTOM* ALGORITHM AC MEALS AND BEDTIME SC Last administered on 10/26/18 09:27; Admin Dose 3 UNIT; Start at 21:00 Al Hydrox/Mg Hydrox/Simethicone (Mag-Al Plus) 30 ml Q6H PRN PO GASTROINTESTINAL UPSET; Start 10/22/18 at 01:30 Epoetin Vic-epbx (RETACRIT(esrd)) 10,000 unit MoWeFr@1700 SC Last administered on 10/25/18 18:39; Admin Dose 10,000 UNIT; Start 10/23/18 at 17:00 Enalaprilat (Vasotec Iv) 1.25 mg Q6H PRN IV BLOOD PRESSURE SUPPORT; Start 10/22/18 at 11:00; Status Hold Pantoprazole (Protonix Iv) 40 mg BID@06,18 IV Last administered on 10/26/18 05:05; Admin Dose 40 MG; Start 10/22/18 at 11:00 Levalbuterol (Xopenex Neb) 0.63 mg Q4H RESP THERAPY PRN HHN WHEEZING; Start 10/22/18 at 11:00 Methylnaltrexone Marston (Relistor) 12 mg Q48H SC Last administered on 10/22/18at 15:56; Admin Dose 12 MG; Start 10/22/18 at 15:30 Hydralazine HCl (Apresoline) 100 mg TID PO Last administered on 10/26/18 09:14; Admin Dose 100 MG; Start 10/25/18 at 09:00 Labetalol HCl (Labetalol) 20 mg Q4H PRN IV ELEVATED BLOOD PRESSURE Last administered on 10/26/18 02:38; Admin Dose 20 MG; Start 10/25/18 at 15:00 Hydralazine HCl (Apresoline) 20 mg Q4H PRN IV SYS BP > 150 Last administered on 4/27/19at 05:42; Admin Dose 20 MG; Start 10/25/18 at 11:30 Insulin Aspart (Novolog Insulin Pen) 4 unit WITH MEALS SC ; Start 10/25/18 at 17:55 Insulin Glargine (Lantus) 12 units DAILY@1000 SC Last administered on 10/26/18 09:27; Admin Dose 12 UNITS; Start 10/26/18 at 10:00 Hydromorphone HCl (Dilaudid) 1 mg Q3H PRN IV SEVERE PAIN LEVEL 7-10 Last administered on 10/26/18at 09:15; Admin Dose 1 MG; Start 10/25/18 at 15:30 Sucralfate (Carafate) 1 gm QID PO Last administered on 10/26/18 09:15; Admin Dose 1 GM; Start 10/25/18 at 17:00 Hyoscyamine (Levsin (Sl)) 0.125 mg Q8 PO Last administered on 10/26/18 05:06; Admin Dose 0.125 MG; Start 10/25/18 at 16:00 Diphenhydramine HCl (Benadryl) 50 mg PRN PRN IV ITCHING Last administered on 10/26/18at 01:15; Admin Dose 50 MG; Start 10/25/18 at 17:00 Diphenhydramine HCl (Benadryl) 25 mg PRN PRN IV ITCHING Last administered on 10/26/18at 10:45; Admin Dose 25 MG; Start 10/25/18 at 17:00 Losartan Potassium (Cozaar) 50 mg DAILY PO Last administered on 10/26/18at 10:44; Admin Dose 50 MG; Start 10/26/18 at 10:00 Nifedipine (Procardia Xl) 60 mg BID PO ; Start 10/26/18 at 11:30; Status UNV Allergies: Coded Allergies: amlodipine (Verified Allergy, Intermediate, swelling of lips, 10/21/18) nifedipine (Verified Allergy, Intermediate, 10/21/18) adhesive tape (Verified Allergy, Mild, 06/20/16) benazepril (Verified Allergy, Mild, 06/20/16) ketorolac (Verified Allergy, Mild, 06/20/16) latex (Verified Allergy, Mild, 06/20/16) metoclopramide (Verified Allergy, Mild, 06/20/16) morphine (Verified Allergy, Mild, 06/20/16) tramadol (Verified Allergy, Mild, 06/20/16) clindamycin (Verified Allergy, Unknown, 10/19/18) Past Surgical History Past Surgical Hx: other (AV fistula) Social History Alcohol Use: none Smoking Status: Never smoker Drug Use: none Exam/Review of Systems Vital Signs Vitals Vital Signs Date Temp Pulse Resp B/P (MAP) Pulse Ox O2 O2 Flow FiO2 Time Delivery Rate 10/26/18 97.6 86 20 140/63 97 Nasal 11:13 (88) Cannula 10/25/18 1.0 20:00 10/22/18 21 08:28 Intake and Output 10/25/18 10/25/18 10/26/18 1515:00 23:00 07:00 IntakeIntake Total 54 ml 528 ml 854 ml OutputOutput Total 2400 ml BalanceBalance 54 ml -1872 ml 854 ml Exam Constitutional: alert, oriented Psych: no complaints, nl mood/affect Head: normocephalic, atraumatic Neck: jvd (7-8cm) Respiratory: diminished breath sounds; No clear to auscultation Cardiovascular: regular rate and rhythm, edema (1+), systolic murmur (2/6 FRED) Gastrointestinal: soft, non-tender; No distended Musculoskeletal: No nl extremities to inspection Neurological: nl mental status, nl speech Labs Result Diagram: 10/26/18 0640 10/26/18 0639 Results 24hrs Laboratory Tests Test 10/25/18 17:51 10/25/18 20:44 10/26/18 06:39 10/26/18 06:40 Bedside Glucose 182 138 Sodium Level 142 Potassium Level 4.1 Chloride Level 103 Carbon Dioxide Level 24 Anion Gap 15 H Blood Urea Nitrogen 18 # Creatinine 3.10 H Est Glomerular 18 L Filtrat Rate mL/min Glucose Level 329 H Calcium Level 9.4 White Blood Count 4.7 L Red Blood Count 3.25 L Hemoglobin 9.6 L Hematocrit 29.8 L Mean Corpuscular 91.7 Volume Mean Corpuscular 29.5 Hemoglobin Mean Corpuscular 32.2 Hemoglobin Concent Red Cell 16.4 H Distribution Width Platelet Count 210 Mean Platelet Volume 9.8 Immature 0.200 Granulocytes % Neutrophils % 77.9 H Lymphocytes % 5.9 L Monocytes % 8.5 Eosinophils % 6.2 Basophils % 1.3 Nucleated Red Blood 0.0 Cells % Immature 0.010 Granulocytes # Neutrophils # 3.7 Lymphocytes # 0.3 L Monocytes # 0.4 Eosinophils # 0.3 Basophils # 0.1 Nucleated Red Blood 0.0 Cells # Test 10/26/18 09:09 Bedside Glucose 382 H Medications Medications Current Medications Nitroglycerin (Nitroglycerin (Sl Tab) 0.4 Mg) 1 tab Q5M PRN SL CHEST PAIN Last administered on 10/20/18at 12:28; Admin Dose 1 TAB; Start 10/20/18 at 00:00 Acetaminophen (Tylenol Liquid) 650 mg Q6H PRN PO PAIN LEVEL 1-3 OR FEVER; Start 10/20/18 at 00:00 Docusate Sodium (Colace) 100 mg Q12H PRN PO CONSTIPATION; Start 10/20/18 at 00:00 Bisacodyl (Dulcolax) 5 mg DAILY PRN PO CONSTIPATION; Start 10/20/18 at 00:00 Clonidine HCl (Catapres-Tts 3 Patch) 2 patch Q7D TRANSDERM Last administered on 10/21/18at 10:19; Admin Dose 2 PATCH; Start 10/21/18 at 09:00 Diagnostic Test (Pha) (Accu-Chek) 1 ea 02 XX Last administered on 10/24/18at 01:06; Admin Dose 1 EA; Start 10/21/18 at 02:00 Miscellaneous Information 1 ea NOTE XX ; Start 10/20/18 at 10:30 Glucose (Glutose) 15 gm Q15M PRN PO DECREASED GLUCOSE; Start 10/20/18 at 10:30 Glucose (Glutose) 22.5 gm Q15M PRN PO DECREASED GLUCOSE Last administered on 10/20/18at 17:16; Admin Dose 22.5 GM; Start 10/20/18 at 10:30 Dextrose (D50w Syringe) 25 ml Q15M PRN IV DECREASED GLUCOSE Last administered on 10/20/18at 17:34; Admin Dose 25 ML; Start 10/20/18 at 10:30 Dextrose (D50w Syringe) 50 ml Q15M PRN IV DECREASED GLUCOSE; Start 10/20/18 at 10:30 Glucagon (Glucagen) 1 mg Q15M PRN IM DECREASED GLUCOSE; Start 10/20/18 at 10:30 Glucose (Glutose) 15 gm Q15M PRN BUCCAL DECREASED GLUCOSE; Start 10/20/18 at 10:30 Heparin Sodium (Porcine) (Heparin (1000 Units/ml)) 3,700 unit AFTER DIALYSIS CATHETER Last administered on 10/25/18at 23:22; Admin Dose 3,700 UNIT; Start 10/21/18 at 08:00 Trimethobenzamide HCl (Tigan) 200 mg Q6H PRN IM NAUSEA AND/OR VOMITING Last administered on 10/26/18at 11:43; Admin Dose 200 MG; Start 10/21/18 at 13:00 Calcium Carbonate (Ca Carbonate) 750 mg Q2H PRN PO GI; Start 10/21/18 at 15:00 Clonidine (Catapres) 0.4 mg BID PO Last administered on 10/26/18at 10:45; Admin Dose 0.4 MG; Start 10/21/18 at 14:00 Hydromorphone HCl (Dilaudid) 2 mg Q4H PRN PO PAIN; Start 10/21/18 at 14:00 Labetalol HCl (Normodyne) 1,200 mg BID PO Last administered on 10/26/18at 10:44; Admin Dose 1,200 MG; Start 10/21/18 at 14:00 Loperamide HCl (Imodium Cap) 2 mg TID PRN PO DIARRHEA Last administered on 10/26/18at 00:21; Admin Dose 2 MG; Start 10/21/18 at 14:00 Pantoprazole (Protonix Tab) 40 mg BID PO ; Start 10/21/18 at 14:00; Status Hold Ondansetron HCl 8 mg/Sodium Chloride 54 ml @ 216 mls/hr Q4H PRN IV NAUSEA AND/OR VOMITING Last administered on 10/26/18at 05:37; Admin Dose 216 MLS/HR; Start 10/21/18 at 14:30 Insulin Aspart (Novolog Insulin Pen) NOVOLOG *CUSTOM* ALGORITHM AC MEALS AND BEDTIME SC Last administered on 10/26/18at 09:27; Admin Dose 3 UNIT; Start 10/21/18 at 21:00 Al Hydrox/Mg Hydrox/Simethicone (Mag-Al Plus) 30 ml Q6H PRN PO GASTROINTESTINAL UPSET; Start 10/22/18 at 01:30 Epoetin Vic-epbx (RETACRIT(esrd)) 10,000 unit MoWeFr@1700 SC Last administered on 10/25/18 18:39; Admin Dose 10,000 UNIT; Start 10/23/18 at 17:00 Enalaprilat (Vasotec Iv) 1.25 mg Q6H PRN IV BLOOD PRESSURE SUPPORT; Start 10/22/18 at 11:00; Status Hold Pantoprazole (Protonix Iv) 40 mg BID@06,18 IV Last administered on 10/26/18 05:05; Admin Dose 40 MG; Start 10/22/18 at 11:00 Levalbuterol (Xopenex Neb) 0.63 mg Q4H RESP THERAPY PRN HHN WHEEZING; Start 10/22/18 at 11:00 Methylnaltrexone Marston (Relistor) 12 mg Q48H SC Last administered on 10/22/18at 15:56; Admin Dose 12 MG; Start 10/22/18 at 15:30 Hydralazine HCl (Apresoline) 100 mg TID PO Last administered on 10/26/18at 09:14; Admin Dose 100 MG; Start 10/25/18 at 09:00 Labetalol HCl (Labetalol) 20 mg Q4H PRN IV ELEVATED BLOOD PRESSURE Last administered on 10/26/18 02:38; Admin Dose 20 MG; Start 10/25/18 at 15:00 Hydralazine HCl (Apresoline) 20 mg Q4H PRN IV SYS BP > 150 Last administered on 10/26/18at 05:42; Admin Dose 20 MG; Start 10/25/18 at 11:30 Insulin Aspart (Novolog Insulin Pen) 4 unit WITH MEALS SC ; Start 10/25/18 at 17:55 Insulin Glargine (Lantus) 12 units DAILY@1000 SC Last administered on 10/26/18 09:27; Admin Dose 12 UNITS; Start 10/26/18 at 10:00 Hydromorphone HCl (Dilaudid) 1 mg Q3H PRN IV SEVERE PAIN LEVEL 7-10 Last administered on 10/26/18 09:15; Admin Dose 1 MG; Start 10/25/18 at 15:30 Sucralfate (Carafate) 1 gm QID PO Last administered on 10/26/18 09:15; Admin Dose 1 GM; Start 10/25/18 at 17:00 Hyoscyamine (Levsin (Sl)) 0.125 mg Q8 PO Last administered on 10/26/18at 05:06; Admin Dose 0.125 MG; Start 10/25/18 at 16:00 Diphenhydramine HCl (Benadryl) 50 mg PRN PRN IV ITCHING Last administered on 10/26/18at 01:15; Admin Dose 50 MG; Start 10/25/18 at 17:00 Diphenhydramine HCl (Benadryl) 25 mg PRN PRN IV ITCHING Last administered on 10/26/18at 10:45; Admin Dose 25 MG; Start 10/25/18 at 17:00 Losartan Potassium (Cozaar) 50 mg DAILY PO Last administered on 10/26/18at 10:44; Admin Dose 50 MG; Start 10/26/18 at 10:00 Nifedipine (Procardia Xl) 60 mg BID PO ; Start 10/26/18 at 11:30; Status MARGA SUTTON Oct 26, 2018 11:54
[2018-10-26] MEDS ORDERED: LOSARTAN 50 MG TAB PO ONE (12:00)
--- NOTE | 2018-10-26 13:00 | PN ---
Date/Time of Note Date/Time of Note DATE: 10/26/18 TIME: 12:56 Assessment/Plan VTE Prophylaxis Risk score (from Nsg)>0 risk: 10 SCD applied (from Nsg): Yes Pharmacological prophylaxis: heparin Lines/Catheters IV Catheter Type (from Nrsg): Mid Line Urinary Cath still in place: No Assessment/Plan Hospital Course S: Patient appears to be tolerating liquid diet. Not able to get EGD performed yesterday because of blood pressures were still high. Since early this morning and today however blood pressures appear to be more stable, systolic blood pressure range 140-150 since that time. See my cardiology team and GI team and renal team this morning. Had dialysis yesterday. O: VS -see below PE: General: lying in bed, answering questions appropriately, legally blind HEENT: Atraumatic, normocephalic. Moist mucous membranes, clear oropharynx Neck: Supple with full range of motion. No rigidity or meningismus Chest: Right Tremayne cath Lungs: Clear to auscultation bilaterally no crackles rales or wheezing Heart: Normal S1-S2, Regular rhythm and rate. No murmur, S3, or S4 Abdomen: Soft , nontender, nondistended , bowel sounds are present. No guarding no rebound tenderness Extremities: Right lower extremity significant discoloration of the anterior rose, warm to touch, distal pulses palpable, no cyanosis noted Neurologic: No focal deficits Assessment/Plan: 28 yo woman with type I diabetes, ESRD on MWF dialysis, diabetic gastroparesis and multiple allergies presents with R tib/fib fracture. #Type I diabetes-sugars more elevated since early this morning low to mid 200 range -Continue current insulin regimen, monitor sugars, follow endocrinology recommendations #Nausea/vomiting: Slightly improving but still present, has been on as needed Tigan and as needed higher doses of Zofran, likely secondary to opiate withdrawal versus diabetic gastroparesis- The patient reports several weeks of nausea and PO intolerance attributed to diabetic gastroparesis -Monitor, n.p.o. except meds for now, awaiting EGD in the next 1 to 2 days when blood pressure is more stable -Continue Zofran and Tigan antiemetics. -Consider erythromycin as well? # HTN urgency: Had been present for the last few days despite multiple p.o. high doses of blood pressure medications and PRN IV blood pressure medicines (earlier she did require nicardipine ip in the ICU 5 days ago). Since early this morning however blood pressure as mentioned above more improved systolic 140- 150. -Continue current dosages of labetalol, clonidine, and spironolactone to 50 p.o. twice daily, Cozaar 100 mg daily, and hydralazine p.o. 100 mg 3 times daily -Continue 20 mg hydralazine as needed IV, as well as as increased to 20 mg IV labetalol as needed today #ESRD- Patient is anuric, normally gets dialysis 3 times a week as an outpatient - Dr. Spear consulted for routine dialysis #Right tib/fib fracture-orthopedics Dr. Babcock consulted -recommended for long leg brace with a dial lock - now in place. -For now keep limb immobile-continue leg brace that is now in place, ordered by orthopedic surgery team -ID has stopped antibiotics today, monitor for now for lower extremity cellulitis #Mid back pain- Associated with fall, also with palpable tenderness and slight deformity of spine- No peripheral neuro findings concerning for cord compression or cauda equina -Monitor, continue PT -Follow-up further recommendations from pain management consult DVT: None GI: PPI IV twice daily Result Diagram: 10/26/18 0640 10/26/18 0639 Results 24hrs Laboratory Tests Test 10/25/18 17:51 10/25/18 20:44 10/26/18 06:39 10/26/18 06:40 Bedside Glucose 182 138 Sodium Level 142 Potassium Level 4.1 Chloride Level 103 Carbon Dioxide Level 24 Anion Gap 15 H Blood Urea Nitrogen 18 # Creatinine 3.10 H Est Glomerular 18 L Filtrat Rate mL/min Glucose Level 329 H Calcium Level 9.4 White Blood Count 4.7 L Red Blood Count 3.25 L Hemoglobin 9.6 L Hematocrit 29.8 L Mean Corpuscular 91.7 Volume Mean Corpuscular 29.5 Hemoglobin Mean Corpuscular 32.2 Hemoglobin Concent Red Cell 16.4 H Distribution Width Platelet Count 210 Mean Platelet Volume 9.8 Immature 0.200 Granulocytes % Neutrophils % 77.9 H Lymphocytes % 5.9 L Monocytes % 8.5 Eosinophils % 6.2 Basophils % 1.3 Nucleated Red Blood 0.0 Cells % Immature 0.010 Granulocytes # Neutrophils # 3.7 Lymphocytes # 0.3 L Monocytes # 0.4 Eosinophils # 0.3 Basophils # 0.1 Nucleated Red Blood 0.0 Cells # Test 10/26/18 09:09 10/26/18 12:31 Bedside Glucose 382 H 224 H Exam/Review of Systems Exam Vitals Vital Signs Date Temp Pulse Resp B/P (MAP) Pulse Ox O2 O2 Flow FiO2 Time Delivery Rate 10/26/18 97.6 86 20 140/63 97 Nasal 11:13 (88) Cannula 10/25/18 1.0 20:00 10/22/18 21 08:28 Intake and Output 10/25/18 10/25/18 10/26/18 1414:59 22:59 06:59 IntakeIntake Total 54 ml 528 ml 854 ml OutputOutput Total 2400 ml BalanceBalance 54 ml 528 ml -1546 ml Results Results 24hrs Laboratory Tests Test 10/25/18 17:51 10/25/18 20:44 10/26/18 06:39 10/26/18 06:40 Bedside Glucose 182 138 Sodium Level 142 Potassium Level 4.1 Chloride Level 103 Carbon Dioxide Level 24 Anion Gap 15 H Blood Urea Nitrogen 18 # Creatinine 3.10 H Est Glomerular 18 L Filtrat Rate mL/min Glucose Level 329 H Calcium Level 9.4 White Blood Count 4.7 L Red Blood Count 3.25 L Hemoglobin 9.6 L Hematocrit 29.8 L Mean Corpuscular 91.7 Volume Mean Corpuscular 29.5 Hemoglobin Mean Corpuscular 32.2 Hemoglobin Concent Red Cell 16.4 H Distribution Width Platelet Count 210 Mean Platelet Volume 9.8 Immature 0.200 Granulocytes % Neutrophils % 77.9 H Lymphocytes % 5.9 L Monocytes % 8.5 Eosinophils % 6.2 Basophils % 1.3 Nucleated Red Blood 0.0 Cells % Immature 0.010 Granulocytes # Neutrophils # 3.7 Lymphocytes # 0.3 L Monocytes # 0.4 Eosinophils # 0.3 Basophils # 0.1 Nucleated Red Blood 0.0 Cells # Test 10/26/18 09:09 10/26/18 12:31 Bedside Glucose 382 H 224 H Medications Medication Current Medications Nitroglycerin (Nitroglycerin (Sl Tab) 0.4 Mg) 1 tab Q5M PRN SL CHEST PAIN Last administered on 10/20/18at 12:28; Admin Dose 1 TAB; Start 10/20/18 at 00:00 Acetaminophen (Tylenol Liquid) 650 mg Q6H PRN PO PAIN LEVEL 1-3 OR FEVER; Start 10/20/18 at 00:00 Docusate Sodium (Colace) 100 mg Q12H PRN PO CONSTIPATION; Start 10/20/18 at 00:00 Bisacodyl (Dulcolax) 5 mg DAILY PRN PO CONSTIPATION; Start 10/20/18 at 00:00 Clonidine HCl (Catapres-Tts 3 Patch) 2 patch Q7D TRANSDERM Last administered on 10/21/18at 10:19; Admin Dose 2 PATCH; Start 10/21/18 at 09:00 Diagnostic Test (Pha) (Accu-Chek) 1 ea 02 XX Last administered on 10/24/18at 01:06; Admin Dose 1 EA; Start 10/21/18 at 02:00 Miscellaneous Information 1 ea NOTE XX ; Start 10/20/18 at 10:30 Glucose (Glutose) 15 gm Q15M PRN PO DECREASED GLUCOSE; Start 10/20/18 at 10:30 Glucose (Glutose) 22.5 gm Q15M PRN PO DECREASED GLUCOSE Last administered on 10/20/18at 17:16; Admin Dose 22.5 GM; Start 10/20/18 at 10:30 Dextrose (D50w Syringe) 25 ml Q15M PRN IV DECREASED GLUCOSE Last administered on 10/20/18at 17:34; Admin Dose 25 ML; Start 10/20/18 at 10:30 Dextrose (D50w Syringe) 50 ml Q15M PRN IV DECREASED GLUCOSE; Start 10/20/18 at 10:30 Glucagon (Glucagen) 1 mg Q15M PRN IM DECREASED GLUCOSE; Start 10/20/18 at 10:30 Glucose (Glutose) 15 gm Q15M PRN BUCCAL DECREASED GLUCOSE; Start 10/20/18 at 10:30 Heparin Sodium (Porcine) (Heparin (1000 Units/ml)) 3,700 unit AFTER DIALYSIS CATHETER Last administered on 10/25/18at 23:22; Admin Dose 3,700 UNIT; Start 10/21/18 at 08:00 Trimethobenzamide HCl (Tigan) 200 mg Q6H PRN IM NAUSEA AND/OR VOMITING Last administered on 10/26/18at 11:43; Admin Dose 200 MG; Start 10/21/18 at 13:00 Calcium Carbonate (Ca Carbonate) 750 mg Q2H PRN PO GI; Start 10/21/18 at 15:00 Clonidine (Catapres) 0.4 mg BID PO Last administered on 10/26/18at 10:45; Admin Dose 0.4 MG; Start 10/21/18 at 14:00 Hydromorphone HCl (Dilaudid) 2 mg Q4H PRN PO PAIN; Start 10/21/18 at 14:00 Labetalol HCl (Normodyne) 1,200 mg BID PO Last administered on 10/26/18at 10:44; Admin Dose 1,200 MG; Start 10/21/18 at 14:00 Loperamide HCl (Imodium Cap) 2 mg TID PRN PO DIARRHEA Last administered on 10/26/18 00:21; Admin Dose 2 MG; Start 10/21/18 at 14:00 Pantoprazole (Protonix Tab) 40 mg BID PO ; Start 10/21/18 at 14:00; Status Hold Ondansetron HCl 8 mg/Sodium Chloride 54 ml @ 216 mls/hr Q4H PRN IV NAUSEA AND/OR VOMITING Last administered on 10/26/18at 05:37; Admin Dose 216 MLS/HR; Start 10/21/18 at 14:30 Insulin Aspart (Novolog Insulin Pen) NOVOLOG *CUSTOM* ALGORITHM AC MEALS AND BEDTIME SC Last administered on 10/26/18at 09:27; Admin Dose 3 UNIT; Start 10/21/18 at 21:00 Al Hydrox/Mg Hydrox/Simethicone (Mag-Al Plus) 30 ml Q6H PRN PO GASTROINTESTINAL UPSET; Start 10/22/18 at 01:30 Epoetin Vic-epbx (RETACRIT(esrd)) 10,000 unit MoWeFr@1700 SC Last administered on 10/25/18at 18:39; Admin Dose 10,000 UNIT; Start 10/23/18 at 17:00 Enalaprilat (Vasotec Iv) 1.25 mg Q6H PRN IV BLOOD PRESSURE SUPPORT; Start 10/22/18 at 11:00; Status Hold Pantoprazole (Protonix Iv) 40 mg BID@06,18 IV Last administered on 10/26/18at 05:05; Admin Dose 40 MG; Start 10/22/18 at 11:00 Levalbuterol (Xopenex Neb) 0.63 mg Q4H RESP THERAPY PRN HHN WHEEZING; Start 10/22/18 at 11:00 Methylnaltrexone [place] (Relistor) 12 mg Q48H SC Last administered on 10/22 15:56; Admin Dose 12 MG; Start 10/22/18 at 15:30 Hydralazine HCl (Apresoline) 100 mg TID PO Last administered on 10/26/18 09:14; Admin Dose 100 MG; Start 10/25/18 at 09:00 Labetalol HCl (Labetalol) 20 mg Q4H PRN IV ELEVATED BLOOD PRESSURE Last administered on 10/26/18 02:38; Admin Dose 20 MG; Start 10/25/18 at 15:00 Hydralazine HCl (Apresoline) 20 mg Q4H PRN IV SYS BP > 150 Last administered on 10/26/18 05:42; Admin Dose 20 MG; Start 10/25/18 at 11:30 Insulin Aspart (Novolog Insulin Pen) 4 unit WITH MEALS SC ; Start 10/25/18 at 17:55 Insulin Glargine (Lantus) 12 units DAILY@1000 SC Last administered on 10/26/18 09:27; Admin Dose 12 UNITS; Start 10/26/18 at 10:00 Hydromorphone HCl (Dilaudid) 1 mg Q3H PRN IV SEVERE PAIN LEVEL 7-10 Last administered on 10/26/18 12:12; Admin Dose 1 MG; Start 10/25/18 at 15:30 Sucralfate (Carafate) 1 gm QID PO Last administered on 10/26/18 09:15; Admin Dose 1 GM; Start 10/25/18 at 17:00 Hyoscyamine (Levsin (Sl)) 0.125 mg Q8 PO Last administered on 10/26/18 05:06; Admin Dose 0.125 MG; Start 10/25/18 at 16:00 Diphenhydramine HCl (Benadryl) 50 mg PRN PRN IV ITCHING Last administered on 10/26/18 01:15; Admin Dose 50 MG; Start 10/25/18 at 17:00 Diphenhydramine HCl (Benadryl) 25 mg PRN PRN IV ITCHING Last administered on 4/27/19at 10:45; Admin Dose 25 MG; Start 10/25/18 at 17:00 Losartan Potassium (Cozaar) 100 mg DAILY PO ; Start 10/27/18 at 09:00 Spironolactone (Aldactone) 50 mg BID DIURETICS PO ; Start 10/26/18 at 18:00 NAYAN WILLIS Oct 26, 2018 12:59
--- NOTE | 2018-10-26 14:15 | CONS ---
Assessment/Plan Assessment/Plan Problems: (1) Type 2 diabetes mellitus with diabetic chronic kidney disease Status: Chronic Comment: Adequate glycemic control in a controlled environment with controlled diet, administration of medications etc. 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 Nephrology and cardiology have both sequentially increase the dose. If she tolerates this it may be a possibility to bring her other antihypertensive medications into a more traditional dosing level Consultation Date/Type/Reason Admit Date/Time Oct 19, 2018 at 23:42 Initial Consult Date 10/22/18 Type of Consult Endocrinology Reason for Consultation Diabetes mellitus type 1 with end-stage renal disease; retention Requesting Provider: NAYAN WILLIS Date/Time of Note DATE: 10/26/18 TIME: 14:12 24 HR Interval Summary Free Text/Dictation Patient reports little bit itchy but no facial swelling no tongue symptoms no mouth symptoms. No hypoglycemia Exam/Review of Systems Exam Vitals Vital Signs Date Temp Pulse Resp B/P (MAP) Pulse Ox O2 O2 Flow FiO2 Time Delivery Rate 10/26/18 83 12:00 10/26/18 97.6 20 140/63 97 Nasal 11:13 (88) Cannula 10/25/18 1.0 20:00 10/22/18 21 08:28 Intake and Output 10/25/18 10/25/18 10/26/18 1515:00 23:00 07:00 IntakeIntake Total 54 ml 528 ml 854 ml OutputOutput Total 2400 ml BalanceBalance 54 ml -1872 ml 854 ml Exam No change in examination Results Result Diagram: 10/26/18 0640 10/26/18 0639 Results 24hrs Laboratory Tests Test 10/25/18 17:51 10/25/18 20:44 10/26/18 06:39 10/26/18 06:40 Bedside Glucose 182 138 Sodium Level 142 Potassium Level 4.1 Chloride Level 103 Carbon Dioxide Level 24 Anion Gap 15 H Blood Urea Nitrogen 18 # Creatinine 3.10 H Est Glomerular 18 L Filtrat Rate mL/min Glucose Level 329 H Calcium Level 9.4 White Blood Count 4.7 L Red Blood Count 3.25 L Hemoglobin 9.6 L Hematocrit 29.8 L Mean Corpuscular 91.7 Volume Mean Corpuscular 29.5 Hemoglobin Mean Corpuscular 32.2 Hemoglobin Concent Red Cell 16.4 H Distribution Width Platelet Count 210 Mean Platelet Volume 9.8 Immature 0.200 Granulocytes % Neutrophils % 77.9 H Lymphocytes % 5.9 L Monocytes % 8.5 Eosinophils % 6.2 Basophils % 1.3 Nucleated Red Blood 0.0 Cells % Immature 0.010 Granulocytes # Neutrophils # 3.7 Lymphocytes # 0.3 L Monocytes # 0.4 Eosinophils # 0.3 Basophils # 0.1 Nucleated Red Blood 0.0 Cells # Test 10/26/18 09:09 10/26/18 12:31 Bedside Glucose 382 H 224 H Medications Medication Current Medications Nitroglycerin (Nitroglycerin (Sl Tab) 0.4 Mg) 1 tab Q5M PRN SL CHEST PAIN Last administered on 10/20/18at 12:28; Admin Dose 1 TAB; Start 10/20/18 at 00:00 Acetaminophen (Tylenol Liquid) 650 mg Q6H PRN PO PAIN LEVEL 1-3 OR FEVER; Start 10/20/18 at 00:00 Docusate Sodium (Colace) 100 mg Q12H PRN PO CONSTIPATION; Start 10/20/18 at 00:00 Bisacodyl (Dulcolax) 5 mg DAILY PRN PO CONSTIPATION; Start 10/20/18 at 00:00 Clonidine HCl (Catapres-Tts 3 Patch) 2 patch Q7D TRANSDERM Last administered on 10/21/18at 10:19; Admin Dose 2 PATCH; Start 10/21/18 at 09:00 Diagnostic Test (Pha) (Accu-Chek) 1 ea 02 XX Last administered on 10/24/18at 01:06; Admin Dose 1 EA; Start 10/21/18 at 02:00 Miscellaneous Information 1 ea NOTE XX ; Start 10/20/18 at 10:30 Glucose (Glutose) 15 gm Q15M PRN PO DECREASED GLUCOSE; Start 10/20/18 at 10:30 Glucose (Glutose) 22.5 gm Q15M PRN PO DECREASED GLUCOSE Last administered on 10/20/18at 17:16; Admin Dose 22.5 GM; Start 10/20/18 at 10:30 Dextrose (D50w Syringe) 25 ml Q15M PRN IV DECREASED GLUCOSE Last administered on 10/20/18at 17:34; Admin Dose 25 ML; Start 10/20/18 at 10:30 Dextrose (D50w Syringe) 50 ml Q15M PRN IV DECREASED GLUCOSE; Start 10/20/18 at 10:30 Glucagon (Glucagen) 1 mg Q15M PRN IM DECREASED GLUCOSE; Start 10/20/18 at 10:30 Glucose (Glutose) 15 gm Q15M PRN BUCCAL DECREASED GLUCOSE; Start 10/20/18 at 10:30 Heparin Sodium (Porcine) (Heparin (1000 Units/ml)) 3,700 unit AFTER DIALYSIS CATHETER Last administered on 10/25/18at 23:22; Admin Dose 3,700 UNIT; Start 10/21/18 at 08:00 Trimethobenzamide HCl (Tigan) 200 mg Q6H PRN IM NAUSEA AND/OR VOMITING Last administered on 10/26/18at 11:43; Admin Dose 200 MG; Start 10/21/18 at 13:00 Calcium Carbonate (Ca Carbonate) 750 mg Q2H PRN PO GI; Start 10/21/18 at 15:00 Clonidine (Catapres) 0.4 mg BID PO Last administered on 10/26/18at 10:45; Admin Dose 0.4 MG; Start 10/21/18 at 14:00 Hydromorphone HCl (Dilaudid) 2 mg Q4H PRN PO PAIN; Start 10/21/18 at 14:00 Labetalol HCl (Normodyne) 1,200 mg BID PO Last administered on 10/26/18at 10:44; Admin Dose 1,200 MG; Start 10/21/18 at 14:00 Loperamide HCl (Imodium Cap) 2 mg TID PRN PO DIARRHEA Last administered on 10/26/18at 00:21; Admin Dose 2 MG; Start 10/21/18 at 14:00 Pantoprazole (Protonix Tab) 40 mg BID PO ; Start 10/21/18 at 14:00; Status Hold Ondansetron HCl 8 mg/Sodium Chloride 54 ml @ 216 mls/hr Q4H PRN IV NAUSEA AND/OR VOMITING Last administered on 10/26/18 05:37; Admin Dose 216 MLS/HR; Start 10/21/18 at 14:30 Insulin Aspart (Novolog Insulin Pen) NOVOLOG *CUSTOM* ALGORITHM AC MEALS AND BEDTIME SC Last administered on 10/26/18 13:47; Admin Dose 1 UNIT; Start 10/21/18 at 21:00 Al Hydrox/Mg Hydrox/Simethicone (Mag-Al Plus) 30 ml Q6H PRN PO GASTROINTESTINAL UPSET; Start 10/22/18 at 01:30 Epoetin Vic-epbx (RETACRIT(esrd)) 10,000 unit MoWeFr@1700 SC Last administered on 10/25/18at 18:39; Admin Dose 10,000 UNIT; Start 10/23/18 at 17:00 Enalaprilat (Vasotec Iv) 1.25 mg Q6H PRN IV BLOOD PRESSURE SUPPORT; Start 10/22/18 at 11:00; Status Hold Pantoprazole (Protonix Iv) 40 mg BID@06,18 IV Last administered on 10/26/18 05:05; Admin Dose 40 MG; Start 10/22/18 at 11:00 Levalbuterol (Xopenex Neb) 0.63 mg Q4H RESP THERAPY PRN HHN WHEEZING; Start 10/22/18 at 11:00 Methylnaltrexone [place] (Relistor) 12 mg Q48H SC Last administered on 10/22/18at 15:56; Admin Dose 12 MG; Start 10/22/18 at 15:30 Hydralazine HCl (Apresoline) 100 mg TID PO Last administered on 10/26/18at 09:14; Admin Dose 100 MG; Start 10/25/18 at 09:00 Labetalol HCl (Labetalol) 20 mg Q4H PRN IV ELEVATED BLOOD PRESSURE Last administered on 10/26/18 02:38; Admin Dose 20 MG; Start 10/25/18 at 15:00 Hydralazine HCl (Apresoline) 20 mg Q4H PRN IV SYS BP > 150 Last administered on 10/26/18 05:42; Admin Dose 20 MG; Start 10/25/18 at 11:30 Insulin Aspart (Novolog Insulin Pen) 4 unit WITH MEALS SC Last administered on 10/26/18 13:50; Admin Dose 4 UNIT; Start 10/25/18 at 17:55 Insulin Glargine (Lantus) 12 units DAILY@1000 SC Last administered on 10/26/18 09:27; Admin Dose 12 UNITS; Start 10/26/18 at 10:00 Hydromorphone HCl (Dilaudid) 1 mg Q3H PRN IV SEVERE PAIN LEVEL 7-10 Last administered on 10/26/18 12:12; Admin Dose 1 MG; Start 10/25/18 at 15:30 Sucralfate (Carafate) 1 gm QID PO Last administered on 10/26/18 09:15; Admin Dose 1 GM; Start 10/25/18 at 17:00 Hyoscyamine (Levsin (Sl)) 0.125 mg Q8 PO Last administered on 10/26/18 05:06; Admin Dose 0.125 MG; Start 10/25/18 at 16:00 Diphenhydramine HCl (Benadryl) 50 mg PRN PRN IV ITCHING Last administered on 10/26/18at 01:15; Admin Dose 50 MG; Start 10/25/18 at 17:00 Diphenhydramine HCl (Benadryl) 25 mg PRN PRN IV ITCHING Last administered on 10/26/18at 10:45; Admin Dose 25 MG; Start 10/25/18 at 17:00 Losartan Potassium (Cozaar) 100 mg DAILY PO ; Start 10/27/18 at 09:00 Spironolactone (Aldactone) 50 mg BID DIURETICS PO ; Start 10/26/18 at 18:00 ADRI BASURTO MD Oct 26, 2018 14:15
[2018-10-26] MEDS: METHYLNALTREXONE 12 MG/0.6 ML VIAL SC SCH (15:30)
--- NOTE | 2018-10-26 17:55 | CONS ---
Assessment/Plan Assessment/Plan Hospital Course (Demo Recall) ID PROGRESS NOTE CURRENT ABX=Day # =>OFF ABX 24H INTERVAL SUMMARY * REsting comfortably POST HD TODAY, no complaints, VSS, NAD * Indwelling: Right chest PermCath * Microbiology: Blood cultures negative since admission MRSA swab negative * IMAGING: Chest x-ray on admission revealed no acute cardiopulmonary disease. Right lower extremity CT revealed soft tissue swelling surrounding community it slightly impacted fracture of the proximal meet DF pieces of the tibia and fibula. Knee joint fluid extending to the suprapatellar bursa. Extremity venous study revealed no DVT of the right lower extremity PHYSICAL EXAMINATION: GENERAL:VSS, NAD HEENT: Unremarkable NECK: Supple, trachea midline. CHEST: Rise symmetrical, without dyspnea on observation HEART: Pulse RRR ABDOMEN: Soft,distended EXTREMITIES: Warm, moves all extremities - right lower extremity significant erythema edema and bruising ID ASSESSMENT 28 yo F admit with: Assessment: 1. Right lower extremity cellulitis/fracture 2. Uncontrolled hypertension 3. Diabetes 4. End-stage renal disease, hemodialysis dependent 5. Persistent nausea 6. Back pain, status post CT scan INVASIVES: Right chest PermCath ABX ALLERGY: Clindamycin CURRENT ABX: => OFF ABX ID RECOMMENDATIONS 1. MONITOR OFF ABX . Consultation Date/Type/Reason Admit Date/Time Oct 19, 2018 at 23:42 Initial Consult Date 10/26/18 Requesting Provider: NAYAN WILLIS Date/Time of Note DATE: 10/26/18 TIME: 17:54 Exam/Review of Systems Exam Vitals Vital Signs Date Temp Pulse Resp B/P (MAP) Pulse Ox O2 O2 Flow FiO2 Time Delivery Rate 10/26/18 18 138/63 17:23 (88) 10/26/18 84 98 Room Air 16:57 10/26/18 97.6 11:13 10/25/18 1.0 20:00 10/22/18 21 08:28 Intake and Output 10/25/18 10/25/18 10/26/18 1414:59 22:59 06:59 IntakeIntake Total 54 ml 528 ml 854 ml OutputOutput Total 2400 ml BalanceBalance 54 ml 528 ml -1546 ml Results Result Diagram: 10/26/18 0640 10/26/18 0639 Results 24hrs Laboratory Tests Test 10/25/18 20:44 10/26/18 06:39 10/26/18 06:40 10/26/18 09:09 Bedside Glucose 138 382 H Sodium Level 142 Potassium Level 4.1 Chloride Level 103 Carbon Dioxide Level 24 Anion Gap 15 H Blood Urea Nitrogen 18 # Creatinine 3.10 H Est Glomerular 18 L Filtrat Rate mL/min Glucose Level 329 H Calcium Level 9.4 White Blood Count 4.7 L Red Blood Count 3.25 L Hemoglobin 9.6 L Hematocrit 29.8 L Mean Corpuscular 91.7 Volume Mean Corpuscular 29.5 Hemoglobin Mean Corpuscular 32.2 Hemoglobin Concent Red Cell 16.4 H Distribution Width Platelet Count 210 Mean Platelet Volume 9.8 Immature 0.200 Granulocytes % Neutrophils % 77.9 H Lymphocytes % 5.9 L Monocytes % 8.5 Eosinophils % 6.2 Basophils % 1.3 Nucleated Red Blood 0.0 Cells % Immature 0.010 Granulocytes # Neutrophils # 3.7 Lymphocytes # 0.3 L Monocytes # 0.4 Eosinophils # 0.3 Basophils # 0.1 Nucleated Red Blood 0.0 Cells # Test 10/26/18 12:31 10/26/18 17:25 Bedside Glucose 224 H 142 Medications Medication Current Medications Nitroglycerin (Nitroglycerin (Sl Tab) 0.4 Mg) 1 tab Q5M PRN SL CHEST PAIN Last administered on 10/20/18at 12:28; Admin Dose 1 TAB; Start 10/20/18 at 00:00 Acetaminophen (Tylenol Liquid) 650 mg Q6H PRN PO PAIN LEVEL 1-3 OR FEVER; Start 10/20/18 at 00:00 Docusate Sodium (Colace) 100 mg Q12H PRN PO CONSTIPATION; Start 10/20/18 at 00:00 Bisacodyl (Dulcolax) 5 mg DAILY PRN PO CONSTIPATION; Start 10/20/18 at 00:00 Clonidine HCl (Catapres-Tts 3 Patch) 2 patch Q7D TRANSDERM Last administered on 10/21/18at 10:19; Admin Dose 2 PATCH; Start 10/21/18 at 09:00 Diagnostic Test (Pha) (Accu-Chek) 1 ea 02 XX Last administered on 10/24/18at 01:06; Admin Dose 1 EA; Start 10/21/18 at 02:00 Miscellaneous Information 1 ea NOTE XX ; Start 10/20/18 at 10:30 Glucose (Glutose) 15 gm Q15M PRN PO DECREASED GLUCOSE; Start 10/20/18 at 10:30 Glucose (Glutose) 22.5 gm Q15M PRN PO DECREASED GLUCOSE Last administered on 10/20/18at 17:16; Admin Dose 22.5 GM; Start 10/20/18 at 10:30 Dextrose (D50w Syringe) 25 ml Q15M PRN IV DECREASED GLUCOSE Last administered on 10/20/18at 17:34; Admin Dose 25 ML; Start 10/20/18 at 10:30 Dextrose (D50w Syringe) 50 ml Q15M PRN IV DECREASED GLUCOSE; Start 10/20/18 at 10:30 Glucagon (Glucagen) 1 mg Q15M PRN IM DECREASED GLUCOSE; Start 10/20/18 at 10:30 Glucose (Glutose) 15 gm Q15M PRN BUCCAL DECREASED GLUCOSE; Start 10/20/18 at 10:30 Heparin Sodium (Porcine) (Heparin (1000 Units/ml)) 3,700 unit AFTER DIALYSIS CATHETER Last administered on 10/25/18at 23:22; Admin Dose 3,700 UNIT; Start 10/21/18 at 08:00 Trimethobenzamide HCl (Tigan) 200 mg Q6H PRN IM NAUSEA AND/OR VOMITING Last administered on 10/26/18at 11:43; Admin Dose 200 MG; Start 10/21/18 at 13:00 Calcium Carbonate (Ca Carbonate) 750 mg Q2H PRN PO GI; Start 10/21/18 at 15:00 Clonidine (Catapres) 0.4 mg BID PO Last administered on 10/26/18at 10:45; Admin Dose 0.4 MG; Start 10/21/18 at 14:00 Hydromorphone HCl (Dilaudid) 2 mg Q4H PRN PO PAIN; Start 10/21/18 at 14:00 Labetalol HCl (Normodyne) 1,200 mg BID PO Last administered on 10/26/18at 10:44; Admin Dose 1,200 MG; Start 10/21/18 at 14:00 Loperamide HCl (Imodium Cap) 2 mg TID PRN PO DIARRHEA Last administered on 10/26/18at 00:21; Admin Dose 2 MG; Start 10/21/18 at 14:00 Pantoprazole (Protonix Tab) 40 mg BID PO ; Start 10/21/18 at 14:00; Status Hold Ondansetron HCl 8 mg/Sodium Chloride 54 ml @ 216 mls/hr Q4H PRN IV NAUSEA AND/OR VOMITING Last administered on 10/26/18 14:17; Admin Dose 216 MLS/HR; Start 10/21/18 at 14:30 Insulin Aspart (Novolog Insulin Pen) NOVOLOG *CUSTOM* ALGORITHM AC MEALS AND BEDTIME SC Last administered on 10/26/18 13:47; Admin Dose 1 UNIT; Start 10/21/18 at 21:00 Al Hydrox/Mg Hydrox/Simethicone (Mag-Al Plus) 30 ml Q6H PRN PO GASTROINTESTINAL UPSET; Start 10/22/18 at 01:30 Epoetin Vic-epbx (RETACRIT(esrd)) 10,000 unit MoWeFr@1700 SC Last administered on 10/25/18at 18:39; Admin Dose 10,000 UNIT; Start 10/23/18 at 17:00 Enalaprilat (Vasotec Iv) 1.25 mg Q6H PRN IV BLOOD PRESSURE SUPPORT; Start 10/22/18 at 11:00; Status Hold Pantoprazole (Protonix Iv) 40 mg BID@06,18 IV Last administered on 10/26/18at 05:05; Admin Dose 40 MG; Start 10/22/18 at 11:00 Levalbuterol (Xopenex Neb) 0.63 mg Q4H RESP THERAPY PRN HHN WHEEZING; Start 10/22/18 at 11:00 Methylnaltrexone [place] (Relistor) 12 mg Q48H SC Last administered on 10/22/18at 15:56; Admin Dose 12 MG; Start 10/22/18 at 15:30 Hydralazine HCl (Apresoline) 100 mg TID PO Last administered on 10/26/18 14: 10; Admin Dose 100 MG; Start 10/25/18 at 09:00 Labetalol HCl (Labetalol) 20 mg Q4H PRN IV ELEVATED BLOOD PRESSURE Last administered on 10/26/18 02:38; Admin Dose 20 MG; Start 10/25/18 at 15:00 Hydralazine HCl (Apresoline) 20 mg Q4H PRN IV SYS BP > 150 Last administered on 10/26/18 05:42; Admin Dose 20 MG; Start 10/25/18 at 11:30 Insulin Aspart (Novolog Insulin Pen) 4 unit WITH MEALS SC Last administered on 10/26/18 13:50; Admin Dose 4 UNIT; Start 10/25/18 at 17:55 Insulin Glargine (Lantus) 12 units DAILY@1000 SC Last administered on 10/26/18 09:27; Admin Dose 12 UNITS; Start 10/26/18 at 10:00 Hydromorphone HCl (Dilaudid) 1 mg Q3H PRN IV SEVERE PAIN LEVEL 7-10 Last administered on 10/26/18 16:51; Admin Dose 1 MG; Start 10/25/18 at 15:30 Sucralfate (Carafate) 1 gm QID PO Last administered on 10/26/18 16:56; Admin Dose 1 GM; Start 10/25/18 at 17:00 Hyoscyamine (Levsin (Sl)) 0.125 mg Q8 PO Last administered on 10/26/18 14:11; Admin Dose 0.125 MG; Start 10/25/18 at 16:00 Diphenhydramine HCl (Benadryl) 50 mg PRN PRN IV ITCHING Last administered on 10/26/18 14:33; Admin Dose 50 MG; Start 10/25/18 at 17:00 Diphenhydramine HCl (Benadryl) 25 mg PRN PRN IV ITCHING Last administered on 10/26/18 16:56; Admin Dose 25 MG; Start 10/25/18 at 17:00 Losartan Potassium (Cozaar) 100 mg DAILY PO ; Start 10/27/18 at 09:00 Spironolactone (Aldactone) 50 mg BID DIURETICS PO ; Start 10/26/18 at 18:00 LESLY DAVIS NP Oct 26, 2018 17:55
[2018-10-26] MEDS: SPIRONOLACTONE 50 MG TAB PO SCH (18:28)
[2018-10-27] VITALS (20 sets, daily range): BP systolic 138–252; BP diastolic 59–137; PULSE 77–109; RESP 18–20
[2018-10-27] MEDS: HYDROmorphONE 1 MG/ML SYG IV PRN ×8 (00:15→21:06)
[2018-10-27] MEDS ORDERED: DIPHENHYDRAMINE 50 MG CAP PO PRN (01:30)
[2018-10-27] MEDS ORDERED: DIPHENHYDRAMINE 50 MG INJ IV ONE ×4 (01:30→23:30)
[2018-10-27] MEDS: ACCU-CHEK XX SCH (02:00)
[2018-10-27] MEDS: PANTOPRAZOLE 40 MG INJ IV SCH ×2 (06:23→18:42)
[2018-10-27] MEDS: SPIRONOLACTONE 50 MG TAB PO SCH ×2 (06:23→18:42)
[2018-10-27] MEDS: HYOSCYAMINE 0.125 MG SUBL TAB PO SCH ×3 (06:23→21:09)
[2018-10-27] MEDS: INSULIN ASPART [NOVOLOG] 3 ML PEN SC SCH ×7 (08:30→20:37)
--- NOTE | 2018-10-27 08:46 | PN ---
DATE: 10/27/2018 SUBJECTIVE: The patient is stable. No events overnight. OBJECTIVE: VITAL SIGNS: Blood pressure is 161/72, respirations 20, pulse 83, temperature 98.0. HEENT: Head is normocephalic. NECK: Supple. HEART: Regular rate. LUNGS: Show diminished breath sounds at the base. ABDOMEN: Soft, nontender to palpation without rebound or guarding. EXTREMITIES: Negative for clubbing, cyanosis, no edema. DERMATOLOGIC: No rashes. MUSCULOSKELETAL: No joint effusion. NEUROLOGIC: No change in exam. MEDICATIONS: Have been reviewed. LABORATORY DATA: Has been reviewed. ASSESSMENT AND PLAN: 1. End-stage renal disease. The patient has been receiving daily dialysis for solute clearance volu me removal. Plan for dialysis again today. 2. Hypertensive urgency. Etiology is multifactorial in part due to increased intravascular volume a nd end-stage renal disease. The patient's blood pressure has slowly been improving with aggressive u ltrafiltration. Continue current blood pressure regimen. Continue ultrafiltration with dialysis. 3. Anemia. Continue to monitor hemoglobin and hematocrit levels. Will give Epogen as needed. 4. Mineral bone disorder, monitor calcium and phosphorus levels. 5. Opiate withdrawal. Continue medical management. 6. Right tibiofibular fracture. The patient is currently in a soft cast. Continue current medical management. 7. Cellulitis. Continue current treatment plan. 8. Diabetes. Continue current insulin regimen. 9. Dyspepsia, nausea, vomiting, possibly due to gastroparesis. Continue to monitor. Continue medic al management. Continue PPI. Dictated By: JUJU JOHN/NTS Conf#: [id number] DID#: [id number] CC: VERITO GARCIA MD;*EndCC*
[2018-10-27] MEDS: SUCRALFATE 1 GM TAB PO SCH ×4 (09:00→20:38)
[2018-10-27] MEDS: TRIMETHOBENZAMIDE 100 MG/ML VIAL IM PRN ×2 (09:04→17:21)
[2018-10-27] MEDS: LOSARTAN 50 MG TAB PO SCH (09:16)
[2018-10-27] MEDS: LABETALOL 200 MG TAB PO SCH ×2 (09:18→20:39)
[2018-10-27] MEDS: INSULIN GLARGINE [LANTus] (100 UNITS/ML) SYG SC SCH (09:29)
--- NOTE | 2018-10-27 09:52 | PN ---
Date/Time of Note Date/Time of Note DATE: 10/27/18 TIME: 09:47 Assessment/Plan VTE Prophylaxis Risk score (from Nsg)>0 risk: 10 SCD applied (from Nsg): Yes Pharmacological prophylaxis: heparin Lines/Catheters IV Catheter Type (from Nrsg): permacath Urinary Cath still in place: No Assessment/Plan Hospital Course S: Patient received dialysis yesterday and getting another session today. In the last 24 hours her systolic blood pressure is overall improved, patient on an aggressive p.o. antihypertensive regimen along with PRN IV antihypertensive medicines being given. Seen by renal team this morning. O: VS -see below PE: General: lying in bed, answering questions appropriately, legally blind HEENT: Atraumatic, normocephalic. Moist mucous membranes, clear oropharynx Neck: Supple with full range of motion. No rigidity or meningismus Chest: Right Tremayne cath Lungs: Clear to auscultation bilaterally no crackles rales or wheezing Heart: Normal S1-S2, Regular rhythm and rate. No murmur, S3, or S4 Abdomen: Soft , nontender, nondistended , bowel sounds are present. No guarding no rebound tenderness Extremities: Right lower extremity significant discoloration of the anterior rose, warm to touch, distal pulses palpable, no cyanosis noted Neurologic: No focal deficits Assessment/Plan: 28 yo woman with type I diabetes, ESRD on MWF dialysis, diabetic gastroparesis and multiple allergies presents with R tib/fib fracture. #Type I diabetes-sugars in the high normal range. -Continue current insulin regimen, monitor sugars, follow endocrinology recommendations #Nausea/vomiting: Slowly improving the last few days, but still present, has been on as needed Tigan and as needed higher doses of Zofran, likely secondary to opiate withdrawal versus diabetic gastroparesis- The patient reports several weeks of nausea and PO intolerance attributed to diabetic gastroparesis -Monitor, liquid diet for now, awaiting EGD in the next 24 hours if blood pressure continues to be stable -Continue Zofran and Tigan antiemetics. # HTN urgency: Appears to have been resolved now for the last 24 hours, before that had been present for the last few days despite multiple p.o. high doses of blood pressure medications and PRN IV blood pressure medicines (earlier she did require nicardipine drip in the ICU 5 days ago). Again, in the last 24 hours, blood pressure as mentioned above more improved systolic 150-160. -Continue current dosages of labetalol, clonidine, and spironolactone to 50 p.o. twice daily, cautiously continue Cozaar 100 mg daily, and hydralazine p.o. 100 mg 3 times daily -Continue 20 mg hydralazine as needed IV, as well as as increased to 20 mg IV labetalol as needed #ESRD- Patient is anuric, normally gets dialysis 3 times a week as an outpatient - Dr. Spear consulted for routine dialysis #Right tib/fib fracture-orthopedics Dr. Babcock consulted -recommended for long leg brace with a dial lock - now in place. -For now keep limb immobile-continue leg brace that is now in place, ordered by orthopedic surgery team -ID has stopped antibiotics today, monitor for now for lower extremity cellulitis #Mid back pain- Associated with fall, also with palpable tenderness and slight deformity of spine- No peripheral neuro findings concerning for cord compression or cauda equina -Monitor, continue PT -Follow-up further recommendations from pain management consult DVT: None GI: PPI IV twice daily Result Diagram: 10/27/18 0611 10/27/18 0611 Results 24hrs Laboratory Tests Test 10/26/18 12:31 10/26/18 17:25 10/26/18 20:38 10/27/18 06:11 Bedside Glucose 224 H 142 195 White Blood Count 4.3 L Red Blood Count 3.03 L Hemoglobin 9.0 L Hematocrit 28.1 L Mean Corpuscular 92.7 Volume Mean Corpuscular 29.7 Hemoglobin Mean Corpuscular 32.0 Hemoglobin Concen t Red Cell 16.2 H Distribution Width Platelet Count 193 Mean Platelet 9.6 Volume Immature 0.000 L Granulocytes % Neutrophils % 76.4 Lymphocytes % 7.2 L Monocytes % 9.9 Eosinophils % 5.3 Basophils % 1.2 Nucleated Red 0.0 Blood Cells % Immature 0.000 Granulocytes # Neutrophils # 3.3 Lymphocytes # 0.3 L Monocytes # 0.4 Eosinophils # 0.2 Basophils # 0.1 Nucleated Red 0.0 Blood Cells # Sodium Level 141 Potassium Level 4.0 Chloride Level 103 Carbon Dioxide 22 Level Anion Gap 16 H Blood Urea 16 Nitrogen Creatinine 3.64 H Est Glomerular 15 L Filtrat Rate mL/min Glucose Level 345 H Calcium Level 9.4 Phosphorus Level 3.9 Magnesium Level 2.2 Test 10/27/18 07:48 10/27/18 08:15 Lab Scanned BLOOD TRANSFUSIO Report N Bedside Glucose 369 H Exam/Review of Systems Exam Vitals Vital Signs Date Temp Pulse Resp B/P (MAP) Pulse Ox O2 O2 Flow FiO2 Time Delivery Rate 10/27/18 83 08:00 10/27/18 98.0 20 161/72 99 07:59 (101) 10/26/18 Room Air 16:57 10/25/18 1.0 20:00 Intake and Output 10/26/18 10/26/18 10/27/18 1515:00 23:00 07:00 IntakeIntake Total 600 ml OutputOutput Total 200 ml 1600 ml BalanceBalance -200 ml -1000 ml Results Results 24hrs Laboratory Tests Test 10/26/18 12:31 10/26/18 17:25 10/26/18 20:38 10/27/18 06:11 Bedside Glucose 224 H 142 195 White Blood Count 4.3 L Red Blood Count 3.03 L Hemoglobin 9.0 L Hematocrit 28.1 L Mean Corpuscular 92.7 Volume Mean Corpuscular 29.7 Hemoglobin Mean Corpuscular 32.0 Hemoglobin Concen t Red Cell 16.2 H Distribution Width Platelet Count 193 Mean Platelet 9.6 Volume Immature 0.000 L Granulocytes % Neutrophils % 76.4 Lymphocytes % 7.2 L Monocytes % 9.9 Eosinophils % 5.3 Basophils % 1.2 Nucleated Red 0.0 Blood Cells % Immature 0.000 Granulocytes # Neutrophils # 3.3 Lymphocytes # 0.3 L Monocytes # 0.4 Eosinophils # 0.2 Basophils # 0.1 Nucleated Red 0.0 Blood Cells # Sodium Level 141 Potassium Level 4.0 Chloride Level 103 Carbon Dioxide 22 Level Anion Gap 16 H Blood Urea 16 Nitrogen Creatinine 3.64 H Est Glomerular 15 L Filtrat Rate mL/min Glucose Level 345 H Calcium Level 9.4 Phosphorus Level 3.9 Magnesium Level 2.2 Test 10/27/18 07:48 10/27/18 08:15 Lab Scanned BLOOD TRANSFUSIO Report N Bedside Glucose 369 H Medications Medication Current Medications Nitroglycerin (Nitroglycerin (Sl Tab) 0.4 Mg) 1 tab Q5M PRN SL CHEST PAIN Last administered on 10/20/18at 12:28; Admin Dose 1 TAB; Start 10/20/18 at 00:00 Acetaminophen (Tylenol Liquid) 650 mg Q6H PRN PO PAIN LEVEL 1-3 OR FEVER; Start 10/20/18 at 00:00 Docusate Sodium (Colace) 100 mg Q12H PRN PO CONSTIPATION; Start 10/20/18 at 00:00 Bisacodyl (Dulcolax) 5 mg DAILY PRN PO CONSTIPATION; Start 10/20/18 at 00:00 Clonidine HCl (Catapres-Tts 3 Patch) 2 patch Q7D TRANSDERM Last administered on 10/21/18at 10:19; Admin Dose 2 PATCH; Start 10/21/18 at 09:00 Diagnostic Test (Pha) (Accu-Chek) 1 ea 02 XX Last administered on 10/24/18at 01:06; Admin Dose 1 EA; Start 10/21/18 at 02:00 Miscellaneous Information 1 ea NOTE XX ; Start 10/20/18 at 10:30 Glucose (Glutose) 15 gm Q15M PRN PO DECREASED GLUCOSE; Start 10/20/18 at 10:30 Glucose (Glutose) 22.5 gm Q15M PRN PO DECREASED GLUCOSE Last administered on 10/20/18at 17:16; Admin Dose 22.5 GM; Start 10/20/18 at 10:30 Dextrose (D50w Syringe) 25 ml Q15M PRN IV DECREASED GLUCOSE Last administered on 10/20/18at 17:34; Admin Dose 25 ML; Start 10/20/18 at 10:30 Dextrose (D50w Syringe) 50 ml Q15M PRN IV DECREASED GLUCOSE; Start 10/20/18 at 10:30 Glucagon (Glucagen) 1 mg Q15M PRN IM DECREASED GLUCOSE; Start 10/20/18 at 10:30 Glucose (Glutose) 15 gm Q15M PRN BUCCAL DECREASED GLUCOSE; Start 10/20/18 at 10:30 Heparin Sodium (Porcine) (Heparin (1000 Units/ml)) 3,700 unit AFTER DIALYSIS CATHETER Last administered on 10/25/18at 23:22; Admin Dose 3,700 UNIT; Start 10/21/18 at 08:00 Trimethobenzamide HCl (Tigan) 200 mg Q6H PRN IM NAUSEA AND/OR VOMITING Last administered on 10/27/18at 09:04; Admin Dose 200 MG; Start 10/21/18 at 13:00 Calcium Carbonate (Ca Carbonate) 750 mg Q2H PRN PO GI; Start 10/21/18 at 15:00 Clonidine (Catapres) 0.4 mg BID PO Last administered on 10/27/18at 09:17; Admin Dose 0.4 MG; Start 10/21/18 at 14:00 Hydromorphone HCl (Dilaudid) 2 mg Q4H PRN PO PAIN; Start 10/21/18 at 14:00 Labetalol HCl (Normodyne) 1,200 mg BID PO Last administered on 10/27/18at 09:18; Admin Dose 1,200 MG; Start 10/21/18 at 14:00 Loperamide HCl (Imodium Cap) 2 mg TID PRN PO DIARRHEA Last administered on 10/26/18at 00:21; Admin Dose 2 MG; Start 10/21/18 at 14:00 Pantoprazole (Protonix Tab) 40 mg BID PO ; Start 10/21/18 at 14:00; Status Hold Ondansetron HCl 8 mg/Sodium Chloride 54 ml @ 216 mls/hr Q4H PRN IV NAUSEA AND/OR VOMITING Last administered on 10/26/18at 14:17; Admin Dose 216 MLS/HR; Start 10/21/18 at 14:30 Insulin Aspart (Novolog Insulin Pen) NOVOLOG *CUSTOM* ALGORITHM AC MEALS AND BEDTIME SC Last administered on 10/27/18at 08:30; Admin Dose 3 UNIT; Start 10/21/18 at 21:00 Al Hydrox/Mg Hydrox/Simethicone (Mag-Al Plus) 30 ml Q6H PRN PO GASTROINTESTINAL UPSET; Start 10/22/18 at 01:30 Epoetin Vic-epbx (RETACRIT(esrd)) 10,000 unit MoWeFr@1700 SC Last administered on 10/25/18at 18:39; Admin Dose 10,000 UNIT; Start 10/23/18 at 17:00 Enalaprilat (Vasotec Iv) 1.25 mg Q6H PRN IV BLOOD PRESSURE SUPPORT; Start 10/22/18 at 11:00; Status Hold Pantoprazole (Protonix Iv) 40 mg BID@06,18 IV Last administered on 10/27/18at 06:23; Admin Dose 40 MG; Start 10/22/18 at 11:00 Levalbuterol (Xopenex Neb) 0.63 mg Q4H RESP THERAPY PRN HHN WHEEZING; Start 10/22/18 at 11:00 Methylnaltrexone [place] (Relistor) 12 mg Q48H SC Last administered on 10/22/18 15:56; Admin Dose 12 MG; Start 10/22/18 at 15:30 Hydralazine HCl (Apresoline) 100 mg TID PO Last administered on 10/27/18 09:18; Admin Dose 100 MG; Start 10/25/18 at 09:00 Labetalol HCl (Labetalol) 20 mg Q4H PRN IV ELEVATED BLOOD PRESSURE Last administered on 10/26/18 02:38; Admin Dose 20 MG; Start 10/25/18 at 15:00 Hydralazine HCl (Apresoline) 20 mg Q4H PRN IV SYS BP > 150 Last administered on 10/26/18 05:42; Admin Dose 20 MG; Start 10/25/18 at 11:30 Insulin Aspart (Novolog Insulin Pen) 4 unit WITH MEALS SC Last administered on 10/27/18 08:30; Admin Dose 4 UNIT; Start 10/25/18 at 17:55 Insulin Glargine (Lantus) 12 units DAILY@1000 SC Last administered on 10/27/18 09:29; Admin Dose 12 UNITS; Start 10/26/18 at 10:00 Hydromorphone HCl (Dilaudid) 1 mg Q3H PRN IV SEVERE PAIN LEVEL 7-10 Last administered on 10/27/18 09:04; Admin Dose 1 MG; Start 10/25/18 at 15:30 Sucralfate (Carafate) 1 gm QID PO Last administered on 10/26/18 21:01; Admin Dose 1 GM; Start 10/25/18 at 17:00 Hyoscyamine (Levsin (Sl)) 0.125 mg Q8 PO Last administered on 10/27/18 06:23; Admin Dose 0.125 MG; Start 10/25/18 at 16:00 Diphenhydramine HCl (Benadryl) 50 mg PRN PRN IV ITCHING Last administered on 10/26/18 21:04; Admin Dose 50 MG; Start 10/25/18 at 17:00 Diphenhydramine HCl (Benadryl) 25 mg PRN PRN IV ITCHING Last administered on 10/26/18at 16:56; Admin Dose 25 MG; Start 10/25/18 at 17:00 Losartan Potassium (Cozaar) 100 mg DAILY PO Last administered on 10/27/18at 09:16; Admin Dose 100 MG; Start 10/27/18 at 09:00 Spironolactone (Aldactone) 50 mg BID DIURETICS PO Last administered on 10/27/18at 06:23; Admin Dose 50 MG; Start 10/26/18 at 18:00 Diphenhydramine HCl (Benadryl) 50 mg Q6H PRN PO ITCHING; Start 10/27/18 at 01:30 NAYAN WILLIS Oct 27, 2018 09:52
--- NOTE | 2018-10-27 10:43 | RADRPT ---
Echocardiogram Report Patient Name: LOKI MOREatient ID: [id number] : 1990 (28y 4m)Study Date: 10/26/2018 1:54:24 PM Gender: FAccession #: [id number] Tech: [facility] [place] Location: Ref.Physician: MARGA ROWAN Height(Cm): 163 BSA: 1.78Weight(Kg): 69.9 Quality: AdequateAccount #: Procedures: Echocardiographic Report: Transthoracic echocardiogram with complete 2D, M-Mode, and doppler examination. Indications: Hypertension. Measurements: 2D/M Mode Doppler Measurement Value Normal Range Measurement Value Normal Range LA Volume 58.7 [ 22.0 - 52.0 ] ml AV Peak Alonzo 1.8 [ 100.0 - 170.0 ] c m/sec LA Volume Index 34 [ 16 - 34 ] ml/m2 AV Peak PG 13.0 [ 2.0 - 9.0 ] mmHg LVIDd 2D 4.8 [ 3.8 - 5.2 ] cm LVOT Peak Alonzo 1.1 [ 70.0 - 110.0 ] cm /sec LVIDs 2D 3.5 [ 2.2 - 3.5 ] cm LVOT Peak PG 5.0 [ 2.0 - 6.0 ] mmHg LVPWd 2D 1.2 [ 0.6 - 0.9 ] cm MV E Peak Alonzo 0.9 [ 60.0 - 130.0 ] cm /sec IVSd 2D 1.3 [ 0.6 - 0.9 ] cm MV A Peak Alonzo 0.7 [ 100.0 - 120.0 ] c m/sec AoR Diam 2D 2.6 [ 2.3 - 3.1 ] cm MV E/A 1.4 [ 0.8 - 1.5 ] ratio EDV 2D 108.0 [ 46.0 - 106.0 ] ml MV PHT 48.0 [ 20.0 - 100.0 ] ms ec ESV 2D 52.6 [ 14.0 - 42.0 ] ml MV Decel Time 165 [ 104 - 258 ] msec EF 2D 51.3 [ 54.0 - 74.0 ] percent MV Decel [place] 6 LA Dimen 2D 4.7 [ 2.7 - 3.8 ] cm Lat E` Alonzo 0.1 [ 10.0 - 15.0 ] cm/ sec Lateral E/E` 10.4 [ 1.0 - 2.0 ] ratio Med E` Alonzo 0.1 cm/sec MV E/A 1.4 [ 0.8 - 1.5 ] ratio MVA PHT 4.6 [ 2.0 - 4.0 ] cm2 TR Peak Alonzo 4.7 [ 100.0 - 280.0 ] c m/sec TR Peak PG 88.0 mmHg PV Peak Alonzo 1.4 [ 40.0 - 80.0 ] cm/ sec PV Peak PG 8.0 mmHg RVSP 98.0 [ 10.0 - 36.0 ] mmH g RA Pressure 10.0 mmHg Findings: Left Ventricle: Normal left ventricular systolic function. Normal left ventricular cavity size. Moderate concentric left ventricular hypertrophy. Ejection fraction is visually estimated at 55 %. Tissue Doppler/Mitral Doppler indices are consistent with pseudonormalization with mildly elevated left atrial pressure (Stage II diastolic dysfunction). Right Ventricle: Normal right ventricular size. Left Atrium: There is moderate enlargement of left atrium, RADHA = 34 ml/m2. Right Atrium: There is mild enlargement of right atrium. Atrial Septum: Not well visualized. Mitral Valve: Normal appearance of the mitral valve. Trace mitral regurgitation. Aortic Valve: Normal appearance of the aortic valve. No significant aortic stenosis or insufficiency. Tricuspid Valve: Normal appearance of the tricuspid valve. Severe pulmonary hypertension with estimated peak PA systolic pressure 96 mmHg. There is moderate tricuspid regurgitation. Pulmonic Valve: Normal pulmonic valve appearance. There is trace pulmonic regurgitation. Pericardium: Trivial pericardial effusion. Aorta: Normal aortic root. IVC: Normal size and no respiratory collapse consistent with elevated right atrial pressure. Pulmonary Artery: Normal pulmonary artery size. Conclusions: Normal left ventricular systolic function. Normal left ventricular cavity size. Moderate concentric left ventricular hypertrophy. Ejection fraction is visually estimated at 55 %. Tissue Doppler/Mitral Doppler indices are consistent with pseudonormalization with mildly elevated left atrial pressure (Stage II diastolic dysfunction). Moderate tricuspid regurgitation. Severe pulmonary hypertension with estimated peak PA systolic pressure 96 mmHg based on RA pressure of 8 mmHg. Electronically Signed By: Marga Rowan 2018-10-27 10:42:46 PDT
--- NOTE | 2018-10-27 10:57 | CONS ---
Assessment/Plan Assessment/Plan Hospital Course (Demo Recall) ID PROGRESS NOTE CURRENT ABX=Day # =>OFF ABX 10/27/18 0611 10/27/18 0611 24H INTERVAL SUMMARY * No fevers, VSS, NAD -- s/p HD yesterday * Indwelling: Right chest PermCath * Microbiology: Blood cultures negative since admission MRSA swab negative * IMAGING: Chest x-ray on admission revealed no acute cardiopulmonary disease. Right lower extremity CT revealed soft tissue swelling surrounding community it slightly impacted fracture of the proximal meet DF pieces of the tibia and fibula. Knee joint fluid extending to the suprapatellar bursa. Extremity venous study revealed no DVT of the right lower extremity PHYSICAL EXAMINATION: GENERAL:VSS, NAD HEENT: Unremarkable NECK: Supple, trachea midline. CHEST: Rise symmetrical, without dyspnea on observation HEART: Pulse RRR ABDOMEN: Soft,distended EXTREMITIES: Warm, moves all extremities - right lower extremity significant erythema edema and bruising ID ASSESSMENT 28 yo F admit with: Assessment: 1. Right lower extremity cellulitis/fracture 2. Uncontrolled hypertension 3. Diabetes w/presumptive polyneuropathies: Peripheral, nephro, autonomic dysreflexia 4. End-stage renal disease, hemodialysis dependent 5. Persistent nausea == Dyspepsia,w/emesis likely due to gastroparesis. 6. Back pain, status post CT scan INVASIVES: Right chest PermCath ABX ALLERGY: Clindamycin CURRENT ABX: => OFF ABX ID RECOMMENDATIONS 1. MONITOR OFF ABX . Consultation Date/Type/Reason Admit Date/Time Oct 19, 2018 at 23:42 Initial Consult Date 10/26/18 Requesting Provider: NAYAN WILLIS Date/Time of Note DATE: 10/27/18 TIME: 10:55 Exam/Review of Systems Exam Vitals Vital Signs Date Temp Pulse Resp B/P (MAP) Pulse Ox O2 O2 Flow FiO2 Time Delivery Rate 10/27/18 85 10:00 10/27/18 20 161/72 99 Room Air 2.0 09:29 (101) Nasal Cannula 10/27/18 98.0 07:59 Intake and Output 10/26/18 10/26/18 10/27/18 1515:00 23:00 07:00 IntakeIntake Total 600 ml OutputOutput Total 200 ml 1600 ml BalanceBalance -200 ml -1000 ml Results Result Diagram: 4/28/19 0611 10/27/18 0611 Results 24hrs Laboratory Tests Test 10/26/18 12:31 10/26/18 17:25 10/26/18 20:38 10/27/18 06:11 Bedside Glucose 224 H 142 195 White Blood Count 4.3 L Red Blood Count 3.03 L Hemoglobin 9.0 L Hematocrit 28.1 L Mean Corpuscular 92.7 Volume Mean Corpuscular 29.7 Hemoglobin Mean Corpuscular 32.0 Hemoglobin Concen t Red Cell 16.2 H Distribution Width Platelet Count 193 Mean Platelet 9.6 Volume Immature 0.000 L Granulocytes % Neutrophils % 76.4 Lymphocytes % 7.2 L Monocytes % 9.9 Eosinophils % 5.3 Basophils % 1.2 Nucleated Red 0.0 Blood Cells % Immature 0.000 Granulocytes # Neutrophils # 3.3 Lymphocytes # 0.3 L Monocytes # 0.4 Eosinophils # 0.2 Basophils # 0.1 Nucleated Red 0.0 Blood Cells # Sodium Level 141 Potassium Level 4.0 Chloride Level 103 Carbon Dioxide 22 Level Anion Gap 16 H Blood Urea 16 Nitrogen Creatinine 3.64 H Est Glomerular 15 L Filtrat Rate mL/min Glucose Level 345 H Calcium Level 9.4 Phosphorus Level 3.9 Magnesium Level 2.2 Test 10/27/18 07:48 10/27/18 08:15 Lab Scanned BLOOD TRANSFUSIO Report N Bedside Glucose 369 H Medications Medication Current Medications Nitroglycerin (Nitroglycerin (Sl Tab) 0.4 Mg) 1 tab Q5M PRN SL CHEST PAIN Last administered on 10/20/18at 12:28; Admin Dose 1 TAB; Start 10/20/18 at 00:00 Acetaminophen (Tylenol Liquid) 650 mg Q6H PRN PO PAIN LEVEL 1-3 OR FEVER; Start 10/20/18 at 00:00 Docusate Sodium (Colace) 100 mg Q12H PRN PO CONSTIPATION; Start 10/20/18 at 00:00 Bisacodyl (Dulcolax) 5 mg DAILY PRN PO CONSTIPATION; Start 10/20/18 at 00:00 Clonidine HCl (Catapres-Tts 3 Patch) 2 patch Q7D TRANSDERM Last administered on 10/21/18at 10:19; Admin Dose 2 PATCH; Start 10/21/18 at 09:00 Diagnostic Test (Pha) (Accu-Chek) 1 ea 02 XX Last administered on 10/24/18at 01:06; Admin Dose 1 EA; Start 10/21/18 at 02:00 Miscellaneous Information 1 ea NOTE XX ; Start 10/20/18 at 10:30 Glucose (Glutose) 15 gm Q15M PRN PO DECREASED GLUCOSE; Start 10/20/18 at 10:30 Glucose (Glutose) 22.5 gm Q15M PRN PO DECREASED GLUCOSE Last administered on 10/20/18at 17:16; Admin Dose 22.5 GM; Start 10/20/18 at 10:30 Dextrose (D50w Syringe) 25 ml Q15M PRN IV DECREASED GLUCOSE Last administered on 10/20/18at 17:34; Admin Dose 25 ML; Start 10/20/18 at 10:30 Dextrose (D50w Syringe) 50 ml Q15M PRN IV DECREASED GLUCOSE; Start 10/20/18 at 10:30 Glucagon (Glucagen) 1 mg Q15M PRN IM DECREASED GLUCOSE; Start 10/20/18 at 10:30 Glucose (Glutose) 15 gm Q15M PRN BUCCAL DECREASED GLUCOSE; Start 10/20/18 at 10:30 Heparin Sodium (Porcine) (Heparin (1000 Units/ml)) 3,700 unit AFTER DIALYSIS CATHETER Last administered on 10/25/18at 23:22; Admin Dose 3,700 UNIT; Start 10/21/18 at 08:00 Trimethobenzamide HCl (Tigan) 200 mg Q6H PRN IM NAUSEA AND/OR VOMITING Last administered on 10/27/18at 09:04; Admin Dose 200 MG; Start 10/21/18 at 13:00 Calcium Carbonate (Ca Carbonate) 750 mg Q2H PRN PO GI; Start 10/21/18 at 15:00 Clonidine (Catapres) 0.4 mg BID PO Last administered on 10/27/18at 09:17; Admin Dose 0.4 MG; Start 10/21/18 at 14:00 Hydromorphone HCl (Dilaudid) 2 mg Q4H PRN PO PAIN; Start 10/21/18 at 14:00 Labetalol HCl (Normodyne) 1,200 mg BID PO Last administered on 10/27/18at 09:18; Admin Dose 1,200 MG; Start 10/21/18 at 14:00 Loperamide HCl (Imodium Cap) 2 mg TID PRN PO DIARRHEA Last administered on 10/26/18 00:21; Admin Dose 2 MG; Start 10/21/18 at 14:00 Pantoprazole (Protonix Tab) 40 mg BID PO ; Start 10/21/18 at 14:00; Status Hold Ondansetron HCl 8 mg/Sodium Chloride 54 ml @ 216 mls/hr Q4H PRN IV NAUSEA AND/OR VOMITING Last administered on 10/26/18 14:17; Admin Dose 216 MLS/HR; Start 10/21/18 at 14:30 Insulin Aspart (Novolog Insulin Pen) NOVOLOG *CUSTOM* ALGORITHM AC MEALS AND BEDTIME SC Last administered on 10/27/18 08:30; Admin Dose 3 UNIT; Start 10/21/18 at 21:00 Al Hydrox/Mg Hydrox/Simethicone (Mag-Al Plus) 30 ml Q6H PRN PO GASTROINTESTINAL UPSET; Start 10/22/18 at 01:30 Epoetin Vic-epbx (RETACRIT(esrd)) 10,000 unit MoWeFr@1700 SC Last administered on 10/25/18 18:39; Admin Dose 10,000 UNIT; Start 10/23/18 at 17:00 Enalaprilat (Vasotec Iv) 1.25 mg Q6H PRN IV BLOOD PRESSURE SUPPORT; Start 10/22/18 at 11:00; Status Hold Pantoprazole (Protonix Iv) 40 mg BID@06,18 IV Last administered on 10/27/18 06:23; Admin Dose 40 MG; Start 10/22/18 at 11:00 Levalbuterol (Xopenex Neb) 0.63 mg Q4H RESP THERAPY PRN HHN WHEEZING; Start 10/22/18 at 11:00 Methylnaltrexone [place] (Relistor) 12 mg Q48H SC Last administered on 10/22/18at 15:56; Admin Dose 12 MG; Start 10/22/18 at 15:30 Hydralazine HCl (Apresoline) 100 mg TID PO Last administered on 10/27/18 09:18; Admin Dose 100 MG; Start 10/25/18 at 09:00 Labetalol HCl (Labetalol) 20 mg Q4H PRN IV ELEVATED BLOOD PRESSURE Last administered on 10/26/18 02:38; Admin Dose 20 MG; Start 10/25/18 at 15:00 Hydralazine HCl (Apresoline) 20 mg Q4H PRN IV SYS BP > 150 Last administered on 10/26/18 05:42; Admin Dose 20 MG; Start 10/25/18 at 11:30 Insulin Aspart (Novolog Insulin Pen) 4 unit WITH MEALS SC Last administered on 10/27/18 08:30; Admin Dose 4 UNIT; Start 10/25/18 at 17:55 Insulin Glargine (Lantus) 12 units DAILY@1000 SC Last administered on 10/27/18 09:29; Admin Dose 12 UNITS; Start 10/26/18 at 10:00 Hydromorphone HCl (Dilaudid) 1 mg Q3H PRN IV SEVERE PAIN LEVEL 7-10 Last administered on 10/27/18 09:04; Admin Dose 1 MG; Start 10/25/18 at 15:30 Sucralfate (Carafate) 1 gm QID PO Last administered on 10/26/18 21:01; Admin Dose 1 GM; Start 10/25/18 at 17:00 Hyoscyamine (Levsin (Sl)) 0.125 mg Q8 PO Last administered on 10/27/18 06:23; Admin Dose 0.125 MG; Start 10/25/18 at 16:00 Diphenhydramine HCl (Benadryl) 50 mg PRN PRN IV ITCHING Last administered on 10/26/18 21:04; Admin Dose 50 MG; Start 10/25/18 at 17:00 Diphenhydramine HCl (Benadryl) 25 mg PRN PRN IV ITCHING Last administered on 16:56; Admin Dose 25 MG; Start 10/25/18 at 17:00 Losartan Potassium (Cozaar) 100 mg DAILY PO Last administered on 10/27/18 09:16; Admin Dose 100 MG; Start 10/27/18 at 09:00 Spironolactone (Aldactone) 50 mg BID DIURETICS PO Last administered on 10/27/18 06:23; Admin Dose 50 MG; Start 10/26/18 at 18:00 Diphenhydramine HCl (Benadryl) 50 mg Q6H PRN PO ITCHING; Start 10/27/18 at 01:30 LESLY DAVIS NP Oct 27, 2018 10:57
[2018-10-27] MEDS: HEPARIN 1000 UNITS/ML 10 ML INJ CATHETER SCH (11:06)
[2018-10-27] MEDS: ONDANSETRON INJ 8 MG in SOD CHLORIDE 0.9% 50 ML IV PRN ×2 (11:16→20:38)
--- NOTE | 2018-10-27 11:31 | CONS ---
Assessment/Plan Assessment/Plan Hospital Course (Demo Recall) Severe pulm HTN: PAP 96 mmHg on echo. ?primary vs secondary. Will ask for pulm eval Hypertensive urgency/malignant HTN: Apparently at home BP is 150s on home regimen so likely contribution here from pain, N/V, volume status. Now better controlled with med changes N/V: being evaluated by GI.?gastroparesis especially with pain meds Anemia: s/p 2 units. No active bleeding and hgb stable for few days PUD: had EGD 1 month prior at [facility] Right tibiofibular fracture due to mechanical fall ESRD on HD DM -if possible, would avoid EGD with severe pulm HTN as pt had a study one month prior, has known PUD, and no active bleeding -I have asked for pulmonary assistance with her pulm HTN -losartan 100mg -continue hydralazine 100mg TID -labetolol 1200mg BID -clonidine patch and 0.4mg BID -caution with aldactone 50mg BID in setting of HD but per pt her K is usually normal Consultation Date/Type/Reason Admit Date/Time Oct 19, 2018 at 23:42 Initial Consult Date 10/26/18 Type of Consult Cardiology Requesting Provider: NAYAN WILLIS Date/Time of Note DATE: 10/27/18 TIME: 11:26 24 HR Interval Summary Free Text/Dictation BP much better. Still with nausea at timed. Echo shows severe pulm HTN She apparently had an EGD 1 month prior [address] [facility] showing 2 ulcers. No active bleeding though she did require 2 units so far. Hgb stable 2-3 days Exam/Review of Systems Vital Signs Vitals Vital Signs Date Temp Pulse Resp B/P (MAP) Pulse Ox O2 O2 Flow FiO2 Time Delivery Rate 10/27/18 91 10:50 10/27/18 20 161/72 99 Room Air 2.0 09:29 (101) Nasal Cannula 10/27/18 98.0 07:59 Intake and Output 10/26/18 10/26/18 10/27/18 1515:00 23:00 07:00 IntakeIntake Total 600 ml OutputOutput Total 200 ml 1600 ml BalanceBalance -200 ml -1000 ml Exam Constitutional: alert Psych: no complaints, nl mood/affect Head: normocephalic, atraumatic Neck: No jvd Respiratory: diminished breath sounds; No clear to auscultation Cardiovascular: regular rate and rhythm, edema (trace-1+) Neurological: nl mental status, nl speech Labs Result Diagram: 10/27/18 0611 10/27/18 0611 Results 24hrs Laboratory Tests Test 10/26/18 12:31 10/26/18 17:25 10/26/18 20:38 10/27/18 06:11 Bedside Glucose 224 H 142 195 White Blood Count 4.3 L Red Blood Count 3.03 L Hemoglobin 9.0 L Hematocrit 28.1 L Mean Corpuscular 92.7 Volume Mean Corpuscular 29.7 Hemoglobin Mean Corpuscular 32.0 Hemoglobin Concen t Red Cell 16.2 H Distribution Width Platelet Count 193 Mean Platelet 9.6 Volume Immature 0.000 L Granulocytes % Neutrophils % 76.4 Lymphocytes % 7.2 L Monocytes % 9.9 Eosinophils % 5.3 Basophils % 1.2 Nucleated Red 0.0 Blood Cells % Immature 0.000 Granulocytes # Neutrophils # 3.3 Lymphocytes # 0.3 L Monocytes # 0.4 Eosinophils # 0.2 Basophils # 0.1 Nucleated Red 0.0 Blood Cells # Sodium Level 141 Potassium Level 4.0 Chloride Level 103 Carbon Dioxide 22 Level Anion Gap 16 H Blood Urea 16 Nitrogen Creatinine 3.64 H Est Glomerular 15 L Filtrat Rate mL/min Glucose Level 345 H Calcium Level 9.4 Phosphorus Level 3.9 Magnesium Level 2.2 Test 10/27/18 07:48 10/27/18 08:15 10/27/18 11:24 Lab Scanned BLOOD TRANSFUSIO Report N Bedside Glucose 369 H 164 Medications Medications Current Medications Nitroglycerin (Nitroglycerin (Sl Tab) 0.4 Mg) 1 tab Q5M PRN SL CHEST PAIN Last administered on 10/20/18at 12:28; Admin Dose 1 TAB; Start 10/20/18 at 00:00 Acetaminophen (Tylenol Liquid) 650 mg Q6H PRN PO PAIN LEVEL 1-3 OR FEVER; Start 10/20/18 at 00:00 Docusate Sodium (Colace) 100 mg Q12H PRN PO CONSTIPATION; Start 10/20/18 at 00:00 Bisacodyl (Dulcolax) 5 mg DAILY PRN PO CONSTIPATION; Start 10/20/18 at 00:00 Clonidine HCl (Catapres-Tts 3 Patch) 2 patch Q7D TRANSDERM Last administered on 10/21/18at 10:19; Admin Dose 2 PATCH; Start 10/21/18 at 09:00 Diagnostic Test (Pha) (Accu-Chek) 1 ea 02 XX Last administered on 10/24/18at 01:06; Admin Dose 1 EA; Start 10/21/18 at 02:00 Miscellaneous Information 1 ea NOTE XX ; Start 10/20/18 at 10:30 Glucose (Glutose) 15 gm Q15M PRN PO DECREASED GLUCOSE; Start 10/20/18 at 10:30 Glucose (Glutose) 22.5 gm Q15M PRN PO DECREASED GLUCOSE Last administered on 10/20/18at 17:16; Admin Dose 22.5 GM; Start 10/20/18 at 10:30 Dextrose (D50w Syringe) 25 ml Q15M PRN IV DECREASED GLUCOSE Last administered on 10/20/18at 17:34; Admin Dose 25 ML; Start 10/20/18 at 10:30 Dextrose (D50w Syringe) 50 ml Q15M PRN IV DECREASED GLUCOSE; Start 10/20/18 at 10:30 Glucagon (Glucagen) 1 mg Q15M PRN IM DECREASED GLUCOSE; Start 10/20/18 at 10:30 Glucose (Glutose) 15 gm Q15M PRN BUCCAL DECREASED GLUCOSE; Start 10/20/18 at 10:30 Heparin Sodium (Porcine) (Heparin (1000 Units/ml)) 3,700 unit AFTER DIALYSIS CATHETER Last administered on 10/27/18at 11:06; Admin Dose 3,700 UNIT; Start 10/21/18 at 08:00 Trimethobenzamide HCl (Tigan) 200 mg Q6H PRN IM NAUSEA AND/OR VOMITING Last administered on 10/27/18at 09:04; Admin Dose 200 MG; Start 10/21/18 at 13:00 Calcium Carbonate (Ca Carbonate) 750 mg Q2H PRN PO GI; Start 10/21/18 at 15:00 Clonidine (Catapres) 0.4 mg BID PO Last administered on 10/27/18at 09:17; Admin Dose 0.4 MG; Start 10/21/18 at 14:00 Hydromorphone HCl (Dilaudid) 2 mg Q4H PRN PO PAIN; Start 10/21/18 at 14:00 Labetalol HCl (Normodyne) 1,200 mg BID PO Last administered on 10/27/18 09:18; Admin Dose 1,200 MG; Start 10/21/18 at 14:00 Loperamide HCl (Imodium Cap) 2 mg TID PRN PO DIARRHEA Last administered on 10/26/18 00:21; Admin Dose 2 MG; Start 10/21/18 at 14:00 Pantoprazole (Protonix Tab) 40 mg BID PO ; Start 10/21/18 at 14:00; Status Hold Ondansetron HCl 8 mg/Sodium Chloride 54 ml @ 216 mls/hr Q4H PRN IV NAUSEA AND/OR VOMITING Last administered on 10/27/18 11:16; Admin Dose 216 MLS/HR; Start 10/21/18 at 14:30 Insulin Aspart (Novolog Insulin Pen) NOVOLOG *CUSTOM* ALGORITHM AC MEALS AND BEDTIME SC Last administered on 10/27/18 08:30; Admin Dose 3 UNIT; Start 10/21/18 at 21:00 Al Hydrox/Mg Hydrox/Simethicone (Mag-Al Plus) 30 ml Q6H PRN PO GASTROINTESTINAL UPSET; Start 10/22/18 at 01:30 Epoetin Vic-epbx (RETACRIT(esrd)) 10,000 unit MoWeFr@1700 SC Last administered on 10/25/18at 18:39; Admin Dose 10,000 UNIT; Start 10/23/18 at 17:00 Enalaprilat (Vasotec Iv) 1.25 mg Q6H PRN IV BLOOD PRESSURE SUPPORT; Start 10/22/18 at 11:00; Status Hold Pantoprazole (Protonix Iv) 40 mg BID@06,18 IV Last administered on 10/27/18 06:23; Admin Dose 40 MG; Start 10/22/18 at 11:00 Levalbuterol (Xopenex Neb) 0.63 mg Q4H RESP THERAPY PRN HHN WHEEZING; Start 10/22/18 at 11:00 Methylnaltrexone [place] (Relistor) 12 mg Q48H SC Last administered on 10/22/18at 15:56; Admin Dose 12 MG; Start 10/22/18 at 15:30 Hydralazine HCl (Apresoline) 100 mg TID PO Last administered on 10/27/18 09:18; Admin Dose 100 MG; Start 10/25/18 at 09:00 Labetalol HCl (Labetalol) 20 mg Q4H PRN IV ELEVATED BLOOD PRESSURE Last administered on 10/26/18 02:38; Admin Dose 20 MG; Start 10/25/18 at 15:00 Hydralazine HCl (Apresoline) 20 mg Q4H PRN IV SYS BP > 150 Last administered on 10/26/18 05:42; Admin Dose 20 MG; Start 10/25/18 at 11:30 Insulin Aspart (Novolog Insulin Pen) 4 unit WITH MEALS SC Last administered on 10/27/18 08:30; Admin Dose 4 UNIT; Start 10/25/18 at 17:55 Insulin Glargine (Lantus) 12 units DAILY@1000 SC Last administered on 10/27/18 09:29; Admin Dose 12 UNITS; Start 10/26/18 at 10:00 Hydromorphone HCl (Dilaudid) 1 mg Q3H PRN IV SEVERE PAIN LEVEL 7-10 Last administered on 10/27/18 09:04; Admin Dose 1 MG; Start 10/25/18 at 15:30 Sucralfate (Carafate) 1 gm QID PO Last administered on 10/26/18 21:01; Admin Dose 1 GM; Start 10/25/18 at 17:00 Hyoscyamine (Levsin (Sl)) 0.125 mg Q8 PO Last administered on 10/27/18 06:23; Admin Dose 0.125 MG; Start 10/25/18 at 16:00 Diphenhydramine HCl (Benadryl) 50 mg PRN PRN IV ITCHING Last administered on 10/26/18 21:04; Admin Dose 50 MG; Start 10/25/18 at 17:00 Diphenhydramine HCl (Benadryl) 25 mg PRN PRN IV ITCHING Last administered on 10/26/18 16:56; Admin Dose 25 MG; Start 10/25/18 at 17:00 Losartan Potassium (Cozaar) 100 mg DAILY PO Last administered on 10/27/18 09:16; Admin Dose 100 MG; Start 10/27/18 at 09:00 Spironolactone (Aldactone) 50 mg BID DIURETICS PO Last administered on 4/28/19at 06:23; Admin Dose 50 MG; Start 10/26/18 at 18:00 Diphenhydramine HCl (Benadryl) 50 mg Q6H PRN PO ITCHING; Start 10/27/18 at 01:30 MARGA CARABALLO Oct 27, 2018 11:31
--- NOTE | 2018-10-27 11:33 | CONS ---
Assessment/Plan Assessment/Plan Problems: (1) Type 2 diabetes mellitus with diabetic chronic kidney disease Status: Chronic Comment: Adequate glycemic control though she did have 1 dose of insulin held and did snack which is led to a bump briefly and sugars Qualifiers: Diabetes mellitus terminal make up operator insulin use: with terminal make up operator use Chronic kidney disease stage: on chronic dialysis Qualified Codes: E11.22 - Type 2 diabetes mellitus with diabetic chronic kidney disease; N18.6 - End stage renal disease; Z79.4 - FPC (current) use of insulin; Z99.2 - Dependence on renal dialysis (2) Vitamin D deficiency Status: Chronic Comment: On replacement (3) Hypertensive urgency Status: Acute Comment: Much better control and tolerating the angiotensin to receptor marshall. This should allow fine-tuning of her other blood pressure medications. Consultation Date/Type/Reason Admit Date/Time Oct 19, 2018 at 23:42 Initial Consult Date 10/22/18 Type of Consult Endocrinology Reason for Consultation Diabetes mellitus type 1 with complications of end-stage renal disease; retinopathy etc. Requesting Provider: NAYAN WILLIS Date/Time of Note DATE: 10/27/18 TIME: 11:31 24 HR Interval Summary Free Text/Dictation Has completed dialysis and reports she is feeling tired Detailed Summary Cardiovascular: no complaints Endocrine: no complaints Exam/Review of Systems Exam Vitals Vital Signs Date Temp Pulse Resp B/P (MAP) Pulse Ox O2 O2 Flow FiO2 Time Delivery Rate 10/27/18 91 10:50 10/27/18 20 161/72 99 Room Air 2.0 09:29 (101) Nasal Cannula 10/27/18 98.0 07:59 Intake and Output 10/26/18 10/26/18 10/27/18 1515:00 23:00 07:00 IntakeIntake Total 600 ml OutputOutput Total 200 ml 1600 ml BalanceBalance -200 ml -1000 ml Constitutional: alert, oriented Respiratory: clear to auscultation, normal air movement Cardiovascular: regular rate and rhythm, nl pulses Results Result Diagram: 10/27/18 0611 10/27/18 0611 Results 24hrs Laboratory Tests Test 10/26/18 12:31 10/26/18 17:25 10/26/18 20:38 10/27/18 06:11 Bedside Glucose 224 H 142 195 White Blood Count 4.3 L Red Blood Count 3.03 L Hemoglobin 9.0 L Hematocrit 28.1 L Mean Corpuscular 92.7 Volume Mean Corpuscular 29.7 Hemoglobin Mean Corpuscular 32.0 Hemoglobin Concen t Red Cell 16.2 H Distribution Width Platelet Count 193 Mean Platelet 9.6 Volume Immature 0.000 L Granulocytes % Neutrophils % 76.4 Lymphocytes % 7.2 L Monocytes % 9.9 Eosinophils % 5.3 Basophils % 1.2 Nucleated Red 0.0 Blood Cells % Immature 0.000 Granulocytes # Neutrophils # 3.3 Lymphocytes # 0.3 L Monocytes # 0.4 Eosinophils # 0.2 Basophils # 0.1 Nucleated Red 0.0 Blood Cells # Sodium Level 141 Potassium Level 4.0 Chloride Level 103 Carbon Dioxide 22 Level Anion Gap 16 H Blood Urea 16 Nitrogen Creatinine 3.64 H Est Glomerular 15 L Filtrat Rate mL/min Glucose Level 345 H Calcium Level 9.4 Phosphorus Level 3.9 Magnesium Level 2.2 Test 10/27/18 07:48 10/27/18 08:15 10/27/18 11:24 Lab Scanned BLOOD TRANSFUSIO Report N Bedside Glucose 369 H 164 Medications Medication Current Medications Nitroglycerin (Nitroglycerin (Sl Tab) 0.4 Mg) 1 tab Q5M PRN SL CHEST PAIN Last administered on 10/20/18at 12:28; Admin Dose 1 TAB; Start 10/20/18 at 00:00 Acetaminophen (Tylenol Liquid) 650 mg Q6H PRN PO PAIN LEVEL 1-3 OR FEVER; Start 10/20/18 at 00:00 Docusate Sodium (Colace) 100 mg Q12H PRN PO CONSTIPATION; Start 10/20/18 at 00:00 Bisacodyl (Dulcolax) 5 mg DAILY PRN PO CONSTIPATION; Start 10/20/18 at 00:00 Clonidine HCl (Catapres-Tts 3 Patch) 2 patch Q7D TRANSDERM Last administered on 10/21/18at 10:19; Admin Dose 2 PATCH; Start 10/21/18 at 09:00 Diagnostic Test (Pha) (Accu-Chek) 1 ea 02 XX Last administered on 10/24/18at 01:06; Admin Dose 1 EA; Start 10/21/18 at 02:00 Miscellaneous Information 1 ea NOTE XX ; Start 10/20/18 at 10:30 Glucose (Glutose) 15 gm Q15M PRN PO DECREASED GLUCOSE; Start 10/20/18 at 10:30 Glucose (Glutose) 22.5 gm Q15M PRN PO DECREASED GLUCOSE Last administered on 10/20/18at 17:16; Admin Dose 22.5 GM; Start 10/20/18 at 10:30 Dextrose (D50w Syringe) 25 ml Q15M PRN IV DECREASED GLUCOSE Last administered on 10/20/18at 17:34; Admin Dose 25 ML; Start 10/20/18 at 10:30 Dextrose (D50w Syringe) 50 ml Q15M PRN IV DECREASED GLUCOSE; Start 10/20/18 at 10:30 Glucagon (Glucagen) 1 mg Q15M PRN IM DECREASED GLUCOSE; Start 10/20/18 at 10:30 Glucose (Glutose) 15 gm Q15M PRN BUCCAL DECREASED GLUCOSE; Start 10/20/18 at 10:30 Heparin Sodium (Porcine) (Heparin (1000 Units/ml)) 3,700 unit AFTER DIALYSIS CATHETER Last administered on 10/27/18at 11:06; Admin Dose 3,700 UNIT; Start 10/21/18 at 08:00 Trimethobenzamide HCl (Tigan) 200 mg Q6H PRN IM NAUSEA AND/OR VOMITING Last administered on 10/27/18at 09:04; Admin Dose 200 MG; Start 10/21/18 at 13:00 Calcium Carbonate (Ca Carbonate) 750 mg Q2H PRN PO GI; Start 10/21/18 at 15:00 Clonidine (Catapres) 0.4 mg BID PO Last administered on 10/27/18at 09:17; Admin Dose 0.4 MG; Start 10/21/18 at 14:00 Hydromorphone HCl (Dilaudid) 2 mg Q4H PRN PO PAIN; Start 10/21/18 at 14:00 Labetalol HCl (Normodyne) 1,200 mg BID PO Last administered on 10/27/18at 09:18; Admin Dose 1,200 MG; Start 10/21/18 at 14:00 Loperamide HCl (Imodium Cap) 2 mg TID PRN PO DIARRHEA Last administered on 10/26/18at 00:21; Admin Dose 2 MG; Start 10/21/18 at 14:00 Pantoprazole (Protonix Tab) 40 mg BID PO ; Start 10/21/18 at 14:00; Status Hold Ondansetron HCl 8 mg/Sodium Chloride 54 ml @ 216 mls/hr Q4H PRN IV NAUSEA AND/OR VOMITING Last administered on 10/27/18 11:16; Admin Dose 216 MLS/HR; Start 10/21/18 at 14:30 Insulin Aspart (Novolog Insulin Pen) NOVOLOG *CUSTOM* ALGORITHM AC MEALS AND BEDTIME SC Last administered on 10/27/18 08:30; Admin Dose 3 UNIT; Start 10/21/18 at 21:00 Al Hydrox/Mg Hydrox/Simethicone (Mag-Al Plus) 30 ml Q6H PRN PO GASTROINTESTINAL UPSET; Start 10/22/18 at 01:30 Epoetin Vic-epbx (RETACRIT(esrd)) 10,000 unit MoWeFr@1700 SC Last administered on 10/25/18at 18:39; Admin Dose 10,000 UNIT; Start 10/23/18 at 17:00 Enalaprilat (Vasotec Iv) 1.25 mg Q6H PRN IV BLOOD PRESSURE SUPPORT; Start 10/01 09/17 at 11:00; Status Hold Pantoprazole (Protonix Iv) 40 mg BID@06,18 IV Last administered on 10/27/18 06:23; Admin Dose 40 MG; Start 10/22/18 at 11:00 Levalbuterol (Xopenex Neb) 0.63 mg Q4H RESP THERAPY PRN HHN WHEEZING; Start 10/22/18 at 11:00 Methylnaltrexone [place] (Relistor) 12 mg Q48H SC Last administered on 10/22/18at 15:56; Admin Dose 12 MG; Start 10/22/18 at 15:30 Hydralazine HCl (Apresoline) 100 mg TID PO Last administered on 10/27/18 09:18; Admin Dose 100 MG; Start 10/25/18 at 09:00 Labetalol HCl (Labetalol) 20 mg Q4H PRN IV ELEVATED BLOOD PRESSURE Last administered on 10/26/18at 02:38; Admin Dose 20 MG; Start 10/25/18 at 15:00 Hydralazine HCl (Apresoline) 20 mg Q4H PRN IV SYS BP > 150 Last administered on 10/26/18at 05:42; Admin Dose 20 MG; Start 10/25/18 at 11:30 Insulin Aspart (Novolog Insulin Pen) 4 unit WITH MEALS SC Last administered on 10/27/18 08:30; Admin Dose 4 UNIT; Start 10/25/18 at 17:55 Insulin Glargine (Lantus) 12 units DAILY@1000 SC Last administered on 10/27/18 09:29; Admin Dose 12 UNITS; Start 10/26/18 at 10:00 Hydromorphone HCl (Dilaudid) 1 mg Q3H PRN IV SEVERE PAIN LEVEL 7-10 Last administered on 10/27/18 09:04; Admin Dose 1 MG; Start 10/25/18 at 15:30 Sucralfate (Carafate) 1 gm QID PO Last administered on 10/26/18 21:01; Admin Dose 1 GM; Start 10/25/18 at 17:00 Hyoscyamine (Levsin (Sl)) 0.125 mg Q8 PO Last administered on 10/27/18 06:23; Admin Dose 0.125 MG; Start 10/25/18 at 16:00 Diphenhydramine HCl (Benadryl) 50 mg PRN PRN IV ITCHING Last administered on 10/26/18 21:04; Admin Dose 50 MG; Start 10/25/18 at 17:00 Diphenhydramine HCl (Benadryl) 25 mg PRN PRN IV ITCHING Last administered on 10/26/18 16:56; Admin Dose 25 MG; Start 10/25/18 at 17:00 Losartan Potassium (Cozaar) 100 mg DAILY PO Last administered on 10/27/18 09:16; Admin Dose 100 MG; Start 10/27/18 at 09:00 Spironolactone (Aldactone) 50 mg BID DIURETICS PO Last administered on 10/27/18 06:23; Admin Dose 50 MG; Start 10/26/18 at 18:00 Diphenhydramine HCl (Benadryl) 50 mg Q6H PRN PO ITCHING; Start 10/27/18 at 01:30 ADRI BASURTO MD Oct 27, 2018 11:33
--- NOTE | 2018-10-27 15:26 | PN ---
Date/Time of Note Date/Time of Note DATE: 10/27/18 TIME: 15:14 Assessment/Plan VTE Prophylaxis Risk score (from Nsg)>0 risk: 10 SCD applied (from Nsg): Yes SCD contraindicated: bilateral LE trauma Pharmacological prophylaxis: NA/contraindicated Pharm contraindication: renal impairment Lines/Catheters IV Catheter Type (from Nrsg): PERMACATH Urinary Cath still in place: No Assessment/Plan Hospital Course Assessment: Persistent nausea/vomiting -R/o 2/2 reduction in pain medication vs gastroparesis vs obstruction vs other Hx of gastroparesis Type I diabetes- with hyperglycemia H/o PUD IBS - D HTN Normocytic anemia ESRD- on HD Right tib/fib fracture- followed by ortho Severe Pulmonary HTN Plan: Pt with severe pulm HTN- cardiology recommends to avoid EGD- we will cancel EGD scheduled for tomorrow- continue PPI/Carafate Advance diet as tolerated Stool for H. pylori- pending Continue Zofran/Tigan Patient seen in collaboration with Dr. augustine Subjective: Course reviewed with nursing staff Patient interviewed and examined All labs, imaging and other results reviewed Patient resting in bed, c/o some nausea- after dialysis today She states she usually eats rice when feeling nausea. Discussed plan to slowly increase diet as tolerated. Per recommendations from cardiology- will cancel EGD for tomorrow- pt verbalized understanding PHYSICAL EXAMINATION: GENERAL: Well developed, alert & oriented x 3, no distress SKIN: Dialysis catheter. EYES: Pupils equal reactive to light, no discharge. EARS/NOSE AND THROAT: Ears normal, nose normal NECK: Supple, no masses CHEST: Inspection within normal limits. CARDIOVASCULAR: Heart: Regular rate and rhythm RESPIRATORY: Lungs clear to auscultation GASTROINTESTINAL AND LIVER: Abdomen: Soft, Moderated epigastric tenderness, non- distended, no hernias, no masses, no organomegaly, no ascites, no guarding, no rebound tenderness, normoactive bowel sounds. Rectal: Deferred. EXTREMITIES: No cyanosis, clubbing or edema. RLE in brace Result Diagram: 10/27/18 0611 10/27/18 0611 Results 24hrs Laboratory Tests Test 10/26/18 17:25 10/26/18 20:38 10/27/18 06:11 10/27/18 07:48 Bedside Glucose 142 195 White Blood Count 4.3 L Red Blood Count 3.03 L Hemoglobin 9.0 L Hematocrit 28.1 L Mean Corpuscular 92.7 Volume Mean Corpuscular 29.7 Hemoglobin Mean Corpuscular 32.0 Hemoglobin Concen t Red Cell 16.2 H Distribution Width Platelet Count 193 Mean Platelet 9.6 Volume Immature 0.000 L Granulocytes % Neutrophils % 76.4 Lymphocytes % 7.2 L Monocytes % 9.9 Eosinophils % 5.3 Basophils % 1.2 Nucleated Red 0.0 Blood Cells % Immature 0.000 Granulocytes # Neutrophils # 3.3 Lymphocytes # 0.3 L Monocytes # 0.4 Eosinophils # 0.2 Basophils # 0.1 Nucleated Red 0.0 Blood Cells # Sodium Level 141 Potassium Level 4.0 Chloride Level 103 Carbon Dioxide 22 Level Anion Gap 16 H Blood Urea 16 Nitrogen Creatinine 3.64 H Est Glomerular 15 L Filtrat Rate mL/min Glucose Level 345 H Calcium Level 9.4 Phosphorus Level 3.9 Magnesium Level 2.2 Lab Scanned BLOOD TRANSFUSIO Report N Test 10/27/18 08:15 10/27/18 11:24 Bedside Glucose 369 H 164 Exam/Review of Systems Exam Vitals Vital Signs Date Temp Pulse Resp B/P (MAP) Pulse Ox O2 O2 Flow FiO2 Time Delivery Rate 10/27/18 87 12:00 10/27/18 98.0 20 145/76 99 11:46 (99) 10/27/18 Room Air 2.0 09:29 Nasal Cannula Intake and Output 10/26/18 10/26/18 10/27/18 1515:00 23:00 07:00 IntakeIntake Total 600 ml OutputOutput Total 200 ml 1600 ml BalanceBalance -200 ml -1000 ml Results Results 24hrs Laboratory Tests Test 10/26/18 17:25 10/26/18 20:38 10/27/18 06:11 10/27/18 07:48 Bedside Glucose 142 195 White Blood Count 4.3 L Red Blood Count 3.03 L Hemoglobin 9.0 L Hematocrit 28.1 L Mean Corpuscular 92.7 Volume Mean Corpuscular 29.7 Hemoglobin Mean Corpuscular 32.0 Hemoglobin Concen t Red Cell 16.2 H Distribution Width Platelet Count 193 Mean Platelet 9.6 Volume Immature 0.000 L Granulocytes % Neutrophils % 76.4 Lymphocytes % 7.2 L Monocytes % 9.9 Eosinophils % 5.3 Basophils % 1.2 Nucleated Red 0.0 Blood Cells % Immature 0.000 Granulocytes # Neutrophils # 3.3 Lymphocytes # 0.3 L Monocytes # 0.4 Eosinophils # 0.2 Basophils # 0.1 Nucleated Red 0.0 Blood Cells # Sodium Level 141 Potassium Level 4.0 Chloride Level 103 Carbon Dioxide 22 Level Anion Gap 16 H Blood Urea 16 Nitrogen Creatinine 3.64 H Est Glomerular 15 L Filtrat Rate mL/min Glucose Level 345 H Calcium Level 9.4 Phosphorus Level 3.9 Magnesium Level 2.2 Lab Scanned BLOOD TRANSFUSIO Report N Test 10/27/18 08:15 10/27/18 11:24 Bedside Glucose 369 H 164 Medications Medication Current Medications Nitroglycerin (Nitroglycerin (Sl Tab) 0.4 Mg) 1 tab Q5M PRN SL CHEST PAIN Last administered on 10/20/18at 12:28; Admin Dose 1 TAB; Start 10/20/18 at 00:00 Acetaminophen (Tylenol Liquid) 650 mg Q6H PRN PO PAIN LEVEL 1-3 OR FEVER; Start 10/20/18 at 00:00 Docusate Sodium (Colace) 100 mg Q12H PRN PO CONSTIPATION; Start 10/20/18 at 00:00 Bisacodyl (Dulcolax) 5 mg DAILY PRN PO CONSTIPATION; Start 10/20/18 at 00:00 Clonidine HCl (Catapres-Tts 3 Patch) 2 patch Q7D TRANSDERM Last administered on 10/21/18at 10:19; Admin Dose 2 PATCH; Start 10/21/18 at 09:00 Diagnostic Test (Pha) (Accu-Chek) 1 ea 02 XX Last administered on 10/24/18at 01:06; Admin Dose 1 EA; Start 10/21/18 at 02:00 Miscellaneous Information 1 ea NOTE XX ; Start 10/20/18 at 10:30 Glucose (Glutose) 15 gm Q15M PRN PO DECREASED GLUCOSE; Start 10/20/18 at 10:30 Glucose (Glutose) 22.5 gm Q15M PRN PO DECREASED GLUCOSE Last administered on 10/20/18at 17:16; Admin Dose 22.5 GM; Start 10/20/18 at 10:30 Dextrose (D50w Syringe) 25 ml Q15M PRN IV DECREASED GLUCOSE Last administered on 10/20/18at 17:34; Admin Dose 25 ML; Start 10/20/18 at 10:30 Dextrose (D50w Syringe) 50 ml Q15M PRN IV DECREASED GLUCOSE; Start 10/20/18 at 10:30 Glucagon (Glucagen) 1 mg Q15M PRN IM DECREASED GLUCOSE; Start 10/20/18 at 10:30 Glucose (Glutose) 15 gm Q15M PRN BUCCAL DECREASED GLUCOSE; Start 10/20/18 at 10:30 Heparin Sodium (Porcine) (Heparin (1000 Units/ml)) 3,700 unit AFTER DIALYSIS CATHETER Last administered on 10/27/18 11:06; Admin Dose 3,700 UNIT; Start 10/21/18 at 08:00 Trimethobenzamide HCl (Tigan) 200 mg Q6H PRN IM NAUSEA AND/OR VOMITING Last administered on 10/27/18 09:04; Admin Dose 200 MG; Start 10/21/18 at 13:00 Calcium Carbonate (Ca Carbonate) 750 mg Q2H PRN PO GI; Start 10/21/18 at 15:00 Clonidine (Catapres) 0.4 mg BID PO Last administered on 10/27/18 09:17; Admin Dose 0.4 MG; Start 10/21/18 at 14:00 Hydromorphone HCl (Dilaudid) 2 mg Q4H PRN PO PAIN; Start 10/21/18 at 14:00 Labetalol HCl (Normodyne) 1,200 mg BID PO Last administered on 10/27/18 09:18; Admin Dose 1,200 MG; Start 10/21/18 at 14:00 Loperamide HCl (Imodium Cap) 2 mg TID PRN PO DIARRHEA Last administered on 10/26/18 00:21; Admin Dose 2 MG; Start 10/21/18 at 14:00 Pantoprazole (Protonix Tab) 40 mg BID PO ; Start 10/21/18 at 14:00; Status Hold Ondansetron HCl 8 mg/Sodium Chloride 54 ml @ 216 mls/hr Q4H PRN IV NAUSEA AND/OR VOMITING Last administered on 10/27/18 11:16; Admin Dose 216 MLS/HR; Start 10/21/18 at 14:30 Insulin Aspart (Novolog Insulin Pen) NOVOLOG *CUSTOM* ALGORITHM AC MEALS AND BEDTIME SC Last administered on 10/27/18 08:30; Admin Dose 3 UNIT; Start 10/21/18 at 21:00 Al Hydrox/Mg Hydrox/Simethicone (Mag-Al Plus) 30 ml Q6H PRN PO GASTROINTESTINAL UPSET; Start 10/22/18 at 01:30 Epoetin Vic-epbx (RETACRIT(esrd)) 10,000 unit MoWeFr@1700 SC Last administered on 10/25/18at 18:39; Admin Dose 10,000 UNIT; Start 10/23/18 at 17:00 Enalaprilat (Vasotec Iv) 1.25 mg Q6H PRN IV BLOOD PRESSURE SUPPORT; Start 10/22/18 at 11:00; Status Hold Pantoprazole (Protonix Iv) 40 mg BID@,18 IV Last administered on 10/27/18 06:23; Admin Dose 40 MG; Start 10/22/18 at 11:00 Levalbuterol (Xopenex Neb) 0.63 mg Q4H RESP THERAPY PRN HHN WHEEZING; Start 10/22/18 at 11:00 Methylnaltrexone [place] (Relistor) 12 mg Q48H SC Last administered on 10/22/18at 15:56; Admin Dose 12 MG; Start 10/22/18 at 15:30 Hydralazine HCl (Apresoline) 100 mg TID PO Last administered on 10/27/18 09:18; Admin Dose 100 MG; Start 10/25/18 at 09:00 Labetalol HCl (Labetalol) 20 mg Q4H PRN IV ELEVATED BLOOD PRESSURE Last administered on 10/26/18 02:38; Admin Dose 20 MG; Start 10/25/18 at 15:00 Hydralazine HCl (Apresoline) 20 mg Q4H PRN IV SYS BP > 150 Last administered on 10/26/18 05:42; Admin Dose 20 MG; Start 10/25/18 at 11:30 Insulin Aspart (Novolog Insulin Pen) 4 unit WITH MEALS SC Last administered on 10/27/18 11:29; Admin Dose 4 UNIT; Start 10/25/18 at 17:55 Insulin Glargine (Lantus) 12 units DAILY@1000 SC Last administered on 10/27/18 09:29; Admin Dose 12 UNITS; Start 10/26/18 at 10:00 Hydromorphone HCl (Dilaudid) 1 mg Q3H PRN IV SEVERE PAIN LEVEL 7-10 Last administered on 10/27/18 12:31; Admin Dose 1 MG; Start 10/25/18 at 15:30 Sucralfate (Carafate) 1 gm QID PO Last administered on 10/26/18 21:01; Admin Dose 1 GM; Start 10/25/18 at 17:00 Hyoscyamine (Levsin (Sl)) 0.125 mg Q8 PO Last administered on 10/27/18 06:23; Admin Dose 0.125 MG; Start 10/25/18 at 16:00 Diphenhydramine HCl (Benadryl) 50 mg PRN PRN IV ITCHING Last administered on 10/26/18 21:04; Admin Dose 50 MG; Start 10/25/18 at 17:00 Diphenhydramine HCl (Benadryl) 25 mg PRN PRN IV ITCHING Last administered on 10/26/18 16:56; Admin Dose 25 MG; Start 10/25/18 at 17:00 Losartan Potassium (Cozaar) 100 mg DAILY PO Last administered on 10/27/18 09:16; Admin Dose 100 MG; Start 10/27/18 at 09:00 Spironolactone (Aldactone) 50 mg BID DIURETICS PO Last administered on 10/27/18 06:23; Admin Dose 50 MG; Start 10/26/18 at 18:00 Diphenhydramine HCl (Benadryl) 50 mg Q6H PRN PO ITCHING; Start 10/27/18 at 01:30 KAYLA BARILLAS Oct 27, 2018 15:26
--- NOTE | 2018-10-27 16:44 | CONS ---
Assessment/Plan Assessment/Plan Assessment/Plan (Daily) IMP: 1. Severe Pulmonary Hypertension--this severity of PH would not be due to WHO class II causes (left atrial hypertension) alone. Patients with ESRD on HD, particularly those who have had AV fistulas are at increased risk of developing severe PH mimicking PAH. However, in view of her low lung volumes on chest imaging, respiratory acidosis, and age, must consider other WHO group I (PAH) causes such autoimmune disease, particularly SLE. 2. 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 3. Metabolic Acidosis/Resp Acidosis RECS: 1. Serology including THEE, dsDNA, anti-SM, scl-70, C3/C4, RF, HIV and LFTs 2. PFTs 3. V/Q scan to eval for CTEPH 4. 6-MWT 5. Once work-up complete, she needs a RHC with vasodilator testing, followed by initiation of vascular-targeted therapy. Consultation Date/Type/Reason Admit Date/Time Oct 19, 2018 at 23:42 Date of Consultation: Oct 27, 2018 Type of Consult Pulm Reason for Consultation Pulm HTN Requesting Provider: MARGA CARABALLO Date/Time of Note DATE: 10/27/18 TIME: 16:30 Hx of Present Illness Briefly, this is a 28-year-old female with a history of HTN, DM, ESRD on HD x 6 years, HFpEF, admitted ~ 1 week ago with right tibiofibular fracture s/p mechanical fall, hospital course complicated by HTN urgency and anemia concerning for GIB. She also had an ECHO showing PASP of ~ 96 mm Hg. She endorses a history of dyspnea with minimal exertion. Denies anorexic drug use or amphetamine or cocaine use. Constitutional: no complaints Eyes: no complaints ENT: no complaints Respiratory: shortness of breath Cardiovascular: no complaints Gastrointestinal: nausea Genitourinary: no complaints Musculoskeletal: bone/joint pain Skin: no complaints Neurologic: no complaints Psychological: no complaints Immunologic: no complaints Past Medical History Medical History: diabetes, renal disease Home Meds Reported Medications Pantoprazole (Protonix) 40 Mg Tabec, 40 MG PO BID, TAB 10/21/18 Loperamide Hcl* (Imodium*) 2 Mg Capsule, 2 MG PO TID PRN for DIARRHEA, CAP MAX 16 mg/day 10/21/18 Insulin Glargine* (Lantus*) 100 Unit/Ml Soln, 10 UNIT SC DAILY, #1 VIAL 10/21/18 Insulin Lispro (Humalog) 100 Unit/1 Ml Cartridge, 100 UNIT SQ SLIDING SCALE 5-15 U, EA 10/21/18 Lorazepam* (Lorazepam*) 0.5 Mg Tablet, 0.5 MG PO Q6 PRN for AGITATION/ANXIETY, TAB 10/21/18 Calcium Carbonate* (Tums X-Str) 300 Mg Tab.chew, 300 MG PO Q2H PRN for GASTROINTESTINAL UPSET, TAB.CHEW 10/21/18 Clonidine Hcl* (Clonidine Hcl*) 0.3 Mg Tablet, 0.4 MG PO BID, TAB 10/21/18 Hydralazine Hcl* (Hydralazine Hcl*) 50 Mg Tab, 100 MG PO BID, #180 TAB 10/21/18 Spironolactone* (Spironolactone*) 100 Mg Tablet, 25 MG PO BID, TAB 10/21/18 Labetalol Hcl (Normodyne) 200 Mg Tablet, 1200 MG PO BID, TAB 10/21/18 Hydromorphone Hcl (Dilaudid) 2 Mg Tab, 2 MG PO Q4 PRN for PAIN, TAB 10/21/18 Clonidine Patch (CLONIDINE PATCH) 0.3 Mg/24 Hr Patch, 2 PATCH.WK TD Q7D, #4 PATCH.WK 10/21/18 Medications Current Medications Nitroglycerin (Nitroglycerin (Sl Tab) 0.4 Mg) 1 tab Q5M PRN SL CHEST PAIN Last administered on 10/20/18at 12:28; Admin Dose 1 TAB; Start 10/20/18 at 00:00 Acetaminophen (Tylenol Liquid) 650 mg Q6H PRN PO PAIN LEVEL 1-3 OR FEVER; Start 10/20/18 at 00:00 Docusate Sodium (Colace) 100 mg Q12H PRN PO CONSTIPATION; Start 10/20/18 at 00:00 Bisacodyl (Dulcolax) 5 mg DAILY PRN PO CONSTIPATION; Start 10/20/18 at 00:00 Clonidine HCl (Catapres-Tts 3 Patch) 2 patch Q7D TRANSDERM Last administered on 10/21/18at 10:19; Admin Dose 2 PATCH; Start 10/21/18 at 09:00 Diagnostic Test (Pha) (Accu-Chek) 1 ea 02 XX Last administered on 10/24/18at 01:06; Admin Dose 1 EA; Start 10/21/18 at 02:00 Miscellaneous Information 1 ea NOTE XX ; Start 10/20/18 at 10:30 Glucose (Glutose) 15 gm Q15M PRN PO DECREASED GLUCOSE; Start 10/20/18 at 10:30 Glucose (Glutose) 22.5 gm Q15M PRN PO DECREASED GLUCOSE Last administered on 10/20/18at 17:16; Admin Dose 22.5 GM; Start 10/20/18 at 10:30 Dextrose (D50w Syringe) 25 ml Q15M PRN IV DECREASED GLUCOSE Last administered on 10/20/18at 17:34; Admin Dose 25 ML; Start 10/20/18 at 10:30 Dextrose (D50w Syringe) 50 ml Q15M PRN IV DECREASED GLUCOSE; Start 10/20/18 at 10:30 Glucagon (Glucagen) 1 mg Q15M PRN IM DECREASED GLUCOSE; Start 10/20/18 at 10:30 Glucose (Glutose) 15 gm Q15M PRN BUCCAL DECREASED GLUCOSE; Start 10/20/18 at 10:30 Heparin Sodium (Porcine) (Heparin (1000 Units/ml)) 3,700 unit AFTER DIALYSIS CATHETER Last administered on 10/27/18at 11:06; Admin Dose 3,700 UNIT; Start 10/21/18 at 08:00 Trimethobenzamide HCl (Tigan) 200 mg Q6H PRN IM NAUSEA AND/OR VOMITING Last administered on 10/27/18at 09:04; Admin Dose 200 MG; Start 10/21/18 at 13:00 Calcium Carbonate (Ca Carbonate) 750 mg Q2H PRN PO GI; Start 10/21/18 at 15:00 Clonidine (Catapres) 0.4 mg BID PO Last administered on 10/27/18at 09:17; Admin Dose 0.4 MG; Start 10/21/18 at 14:00 Hydromorphone HCl (Dilaudid) 2 mg Q4H PRN PO PAIN; Start 10/21/18 at 14:00 Labetalol HCl (Normodyne) 1,200 mg BID PO Last administered on 10/27/18at 09:18; Admin Dose 1,200 MG; Start 10/21/18 at 14:00 Loperamide HCl (Imodium Cap) 2 mg TID PRN PO DIARRHEA Last administered on 10/26/18at 00:21; Admin Dose 2 MG; Start 10/21/18 at 14:00 Pantoprazole (Protonix Tab) 40 mg BID PO ; Start 10/21/18 at 14:00; Status Hold Ondansetron HCl 8 mg/Sodium Chloride 54 ml @ 216 mls/hr Q4H PRN IV NAUSEA AND/OR VOMITING Last administered on 10/27/18at 11:16; Admin Dose 216 MLS/HR; Start 10/21/18 at 14:30 Insulin Aspart (Novolog Insulin Pen) NOVOLOG *CUSTOM* ALGORITHM AC MEALS AND BEDTIME SC Last administered on 10/27/18 08:30; Admin Dose 3 UNIT; Start 10/21/18 at 21:00 Al Hydrox/Mg Hydrox/Simethicone (Mag-Al Plus) 30 ml Q6H PRN PO GASTROINTESTINAL UPSET; Start 10/22/18 at 01:30 Epoetin Vic-epbx (RETACRIT(esrd)) 10,000 unit MoWeFr@1700 SC Last administered on 10/25/18at 18:39; Admin Dose 10,000 UNIT; Start 10/23/18 at 17:00 Enalaprilat (Vasotec Iv) 1.25 mg Q6H PRN IV BLOOD PRESSURE SUPPORT; Start 10/22/18 at 11:00; Status Hold Pantoprazole (Protonix Iv) 40 mg BID@06,18 IV Last administered on 10/27/18at 06:23; Admin Dose 40 MG; Start 10/22/18 at 11:00 Levalbuterol (Xopenex Neb) 0.63 mg Q4H RESP THERAPY PRN HHN WHEEZING; Start 10/22/18 at 11:00 Methylnaltrexone [place] (Relistor) 12 mg Q48H SC Last administered on 10/22/18at 15:56; Admin Dose 12 MG; Start 10/22/18 at 15:30 Hydralazine HCl (Apresoline) 100 mg TID PO Last administered on 10/27/18at 15:29; Admin Dose 100 MG; Start 10/25/18 at 09:00 Labetalol HCl (Labetalol) 20 mg Q4H PRN IV ELEVATED BLOOD PRESSURE Last administered on 10/26/18 02:38; Admin Dose 20 MG; Start 10/25/18 at 15:00 Hydralazine HCl (Apresoline) 20 mg Q4H PRN IV SYS BP > 150 Last administered on 10/26/18 05:42; Admin Dose 20 MG; Start 10/25/18 at 11:30 Insulin Aspart (Novolog Insulin Pen) 4 unit WITH MEALS SC Last administered on 10/27/18 11:29; Admin Dose 4 UNIT; Start 10/25/18 at 17:55 Insulin Glargine (Lantus) 12 units DAILY@1000 SC Last administered on 10/27/18 09:29; Admin Dose 12 UNITS; Start 10/26/18 at 10:00 Hydromorphone HCl (Dilaudid) 1 mg Q3H PRN IV SEVERE PAIN LEVEL 7-10 Last administered on 10/27/18 15:19; Admin Dose 1 MG; Start 10/25/18 at 15:30 Sucralfate (Carafate) 1 gm QID PO Last administered on 10/27/18 13:00; Admin Dose 1 GM; Start 10/25/18 at 17:00 Hyoscyamine (Levsin (Sl)) 0.125 mg Q8 PO Last administered on 10/27/18 15:24; Admin Dose 0.125 MG; Start 10/25/18 at 16:00 Diphenhydramine HCl (Benadryl) 50 mg PRN PRN IV ITCHING Last administered on 10/26/18 21:04; Admin Dose 50 MG; Start 10/25/18 at 17:00 Diphenhydramine HCl (Benadryl) 25 mg PRN PRN IV ITCHING Last administered on 10/26/18 16:56; Admin Dose 25 MG; Start 10/25/18 at 17:00 Losartan Potassium (Cozaar) 100 mg DAILY PO Last administered on 10/27/18 09:16; Admin Dose 100 MG; Start 10/27/18 at 09:00 Spironolactone (Aldactone) 50 mg BID DIURETICS PO Last administered on 10/27/18 06:23; Admin Dose 50 MG; Start 10/26/18 at 18:00 Diphenhydramine HCl (Benadryl) 50 mg Q6H PRN PO ITCHING; Start 10/27/18 at 01:30 Allergies: Coded Allergies: amlodipine (Verified Allergy, Intermediate, swelling of lips, 10/21/18) nifedipine (Verified Allergy, Intermediate, 10/21/18) adhesive tape (Verified Allergy, Mild, 06/20/16) benazepril (Verified Allergy, Mild, 06/20/16) ketorolac (Verified Allergy, Mild, 06/20/16) latex (Verified Allergy, Mild, 06/20/16) metoclopramide (Verified Allergy, Mild, 06/20/16) morphine (Verified Allergy, Mild, 06/20/16) tramadol (Verified Allergy, Mild, 06/20/16) clindamycin (Verified Allergy, Unknown, 10/19/18) Past Surgical History Past Surgical Hx: other (AV fistula) Social History Alcohol Use: none Smoking Status: Never smoker Drug Use: none Exam/Review of Systems Exam Vitals Vital Signs Date Temp Pulse Resp B/P (MAP) Pulse Ox O2 O2 Flow FiO2 Time Delivery Rate 10/27/18 98.3 85 20 187/75 91 16:01 (112) 10/27/18 Room Air 2.0 09:29 Nasal Cannula Intake and Output 10/26/18 10/26/18 10/27/18 1515:00 23:00 07:00 IntakeIntake Total 600 ml OutputOutput Total 200 ml 1600 ml BalanceBalance -200 ml -1000 ml Constitutional: alert, oriented, well developed Psych: no complaints, nl mood/affect Head: normocephalic, atraumatic Eyes: nl conjunctiva, EOMI, nl lids, nl sclera ENMT: nl external ears & nose, nl lips & teeth, nl nasal mucosa & septum, mucosa pink and moist Neck: supple, non-tender Respiratory: clear to auscultation Cardiovascular: jugular venous distention (JVD), S3, other (Loud P2; split S2 ) Gastrointestinal: soft, nl liver, spleen, non-tender Musculoskeletal: nl extremities to inspection, swelling Extremities: normal pulses Neurological: SKILLED HELPER II-XII intact, DTR's symmetric Results Result Diagram: 10/27/18 0611 10/27/18 0611 Results 24hrs Laboratory Tests Test 10/26/18 17:25 10/26/18 20:38 10/27/18 06:11 10/27/18 07:48 Bedside Glucose 142 195 White Blood Count 4.3 L Red Blood Count 3.03 L Hemoglobin 9.0 L Hematocrit 28.1 L Mean Corpuscular 92.7 Volume Mean Corpuscular 29.7 Hemoglobin Mean Corpuscular 32.0 Hemoglobin Concen t Red Cell 16.2 H Distribution Width Platelet Count 193 Mean Platelet 9.6 Volume Immature 0.000 L Granulocytes % Neutrophils % 76.4 Lymphocytes % 7.2 L Monocytes % 9.9 Eosinophils % 5.3 Basophils % 1.2 Nucleated Red 0.0 Blood Cells % Immature 0.000 Granulocytes # Neutrophils # 3.3 Lymphocytes # 0.3 L Monocytes # 0.4 Eosinophils # 0.2 Basophils # 0.1 Nucleated Red 0.0 Blood Cells # Sodium Level 141 Potassium Level 4.0 Chloride Level 103 Carbon Dioxide 22 Level Anion Gap 16 H Blood Urea 16 Nitrogen Creatinine 3.64 H Est Glomerular 15 L Filtrat Rate mL/min Glucose Level 345 H Calcium Level 9.4 Phosphorus Level 3.9 Magnesium Level 2.2 Lab Scanned BLOOD TRANSFUSIO Report N Test 10/27/18 08:15 10/27/18 11:24 Bedside Glucose 369 H 164 Medications Medication Current Medications Nitroglycerin (Nitroglycerin (Sl Tab) 0.4 Mg) 1 tab Q5M PRN SL CHEST PAIN Last administered on 10/20/18at 12:28; Admin Dose 1 TAB; Start 10/20/18 at 00:00 Acetaminophen (Tylenol Liquid) 650 mg Q6H PRN PO PAIN LEVEL 1-3 OR FEVER; Start 10/20/18 at 00:00 Docusate Sodium (Colace) 100 mg Q12H PRN PO CONSTIPATION; Start 10/20/18 at 00:00 Bisacodyl (Dulcolax) 5 mg DAILY PRN PO CONSTIPATION; Start 10/20/18 at 00:00 Clonidine HCl (Catapres-Tts 3 Patch) 2 patch Q7D TRANSDERM Last administered on 10/21/18at 10:19; Admin Dose 2 PATCH; Start 10/21/18 at 09:00 Diagnostic Test (Pha) (Accu-Chek) 1 ea 02 XX Last administered on 10/24/18at 01:06; Admin Dose 1 EA; Start 10/21/18 at 02:00 Miscellaneous Information 1 ea NOTE XX ; Start 10/20/18 at 10:30 Glucose (Glutose) 15 gm Q15M PRN PO DECREASED GLUCOSE; Start 10/20/18 at 10:30 Glucose (Glutose) 22.5 gm Q15M PRN PO DECREASED GLUCOSE Last administered on 10/20/18at 17:16; Admin Dose 22.5 GM; Start 10/20/18 at 10:30 Dextrose (D50w Syringe) 25 ml Q15M PRN IV DECREASED GLUCOSE Last administered on 10/20/18at 17:34; Admin Dose 25 ML; Start 10/20/18 at 10:30 Dextrose (D50w Syringe) 50 ml Q15M PRN IV DECREASED GLUCOSE; Start 10/20/18 at 10:30 Glucagon (Glucagen) 1 mg Q15M PRN IM DECREASED GLUCOSE; Start 10/20/18 at 10:30 Glucose (Glutose) 15 gm Q15M PRN BUCCAL DECREASED GLUCOSE; Start 10/20/18 at 10:30 Heparin Sodium (Porcine) (Heparin (1000 Units/ml)) 3,700 unit AFTER DIALYSIS CATHETER Last administered on 10/27/18at 11:06; Admin Dose 3,700 UNIT; Start at 08:00 Trimethobenzamide HCl (Tigan) 200 mg Q6H PRN IM NAUSEA AND/OR VOMITING Last administered on 10/27/18at 09:04; Admin Dose 200 MG; Start 10/21/18 at 13:00 Calcium Carbonate (Ca Carbonate) 750 mg Q2H PRN PO GI; Start 10/21/18 at 15:00 Clonidine (Catapres) 0.4 mg BID PO Last administered on 10/27/18at 09:17; Admin Dose 0.4 MG; Start 10/21/18 at 14:00 Hydromorphone HCl (Dilaudid) 2 mg Q4H PRN PO PAIN; Start 10/21/18 at 14:00 Labetalol HCl (Normodyne) 1,200 mg BID PO Last administered on 10/27/18 09:18; Admin Dose 1,200 MG; Start 10/21/18 at 14:00 Loperamide HCl (Imodium Cap) 2 mg TID PRN PO DIARRHEA Last administered on 10/26/18 00:21; Admin Dose 2 MG; Start 10/21/18 at 14:00 Pantoprazole (Protonix Tab) 40 mg BID PO ; Start 10/21/18 at 14:00; Status Hold Ondansetron HCl 8 mg/Sodium Chloride 54 ml @ 216 mls/hr Q4H PRN IV NAUSEA AND/OR VOMITING Last administered on 10/27/18at 11:16; Admin Dose 216 MLS/HR; Start 10/21/18 at 14:30 Insulin Aspart (Novolog Insulin Pen) NOVOLOG *CUSTOM* ALGORITHM AC MEALS AND BEDTIME SC Last administered on 10/27/18at 08:30; Admin Dose 3 UNIT; Start 10/21/18 at 21:00 Al Hydrox/Mg Hydrox/Simethicone (Mag-Al Plus) 30 ml Q6H PRN PO GASTROINTESTINAL UPSET; Start 10/22/18 at 01:30 Epoetin Vic-epbx (RETACRIT(esrd)) 10,000 unit MoWeFr@1700 SC Last administered on 10/25/18at 18:39; Admin Dose 10,000 UNIT; Start 10/23/18 at 17:00 Enalaprilat (Vasotec Iv) 1.25 mg Q6H PRN IV BLOOD PRESSURE SUPPORT; Start 10/22/18 at 11:00; Status Hold Pantoprazole (Protonix Iv) 40 mg BID@06,18 IV Last administered on 10/27/18at 06:23; Admin Dose 40 MG; Start 10/22/18 at 11:00 Levalbuterol (Xopenex Neb) 0.63 mg Q4H RESP THERAPY PRN HHN WHEEZING; Start 10/22/18 at 11:00 Methylnaltrexone [place] (Relistor) 12 mg Q48H SC Last administered on 10/22/18 at 15:56; Admin Dose 12 MG; Start 10/22/18 at 15:30 Hydralazine HCl (Apresoline) 100 mg TID PO Last administered on 10/27/18at 15:29; Admin Dose 100 MG; Start 10/25/18 at 09:00 Labetalol HCl (Labetalol) 20 mg Q4H PRN IV ELEVATED BLOOD PRESSURE Last administered on 10/26/18at 02:38; Admin Dose 20 MG; Start 10/25/18 at 15:00 Hydralazine HCl (Apresoline) 20 mg Q4H PRN IV SYS BP > 150 Last administered on 10/26/18 05:42; Admin Dose 20 MG; Start 10/25/18 at 11:30 Insulin Aspart (Novolog Insulin Pen) 4 unit WITH MEALS SC Last administered on 10/27/18 11:29; Admin Dose 4 UNIT; Start 10/25/18 at 17:55 Insulin Glargine (Lantus) 12 units DAILY@1000 SC Last administered on 10/27/18 09:29; Admin Dose 12 UNITS; Start 10/26/18 at 10:00 Hydromorphone HCl (Dilaudid) 1 mg Q3H PRN IV SEVERE PAIN LEVEL 7-10 Last administered on 10/27/18 15:19; Admin Dose 1 MG; Start 10/25/18 at 15:30 Sucralfate (Carafate) 1 gm QID PO Last administered on 10/27/18 13:00; Admin Dose 1 GM; Start 10/25/18 at 17:00 Hyoscyamine (Levsin (Sl)) 0.125 mg Q8 PO Last administered on 10/27/18 15:24; Admin Dose 0.125 MG; Start 10/25/18 at 16:00 Diphenhydramine HCl (Benadryl) 50 mg PRN PRN IV ITCHING Last administered on 10/26/18 21:04; Admin Dose 50 MG; Start 10/25/18 at 17:00 Diphenhydramine HCl (Benadryl) 25 mg PRN PRN IV ITCHING Last administered on 10/26/18 16:56; Admin Dose 25 MG; Start 10/25/18 at 17:00 Losartan Potassium (Cozaar) 100 mg DAILY PO Last administered on 10/27/18 09:16; Admin Dose 100 MG; Start 10/27/18 at 09:00 Spironolactone (Aldactone) 50 mg BID DIURETICS PO Last administered on 06:23; Admin Dose 50 MG; Start 10/26/18 at 18:00 Diphenhydramine HCl (Benadryl) 50 mg Q6H PRN PO ITCHING; Start 10/27/18 at 01:30 JODI WAHL MD Oct 27, 2018 16:44
[2018-10-28] VITALS (12 sets, daily range): BP systolic 141–203; BP diastolic 71–107; PULSE 80–88; RESP 18–20
[2018-10-28] MEDS: HYDROmorphONE 1 MG/ML SYG IV PRN ×9 (00:09→23:53)
[2018-10-28] MEDS: ACCU-CHEK XX SCH (02:00)
[2018-10-28] MEDS: ONDANSETRON INJ 8 MG in SOD CHLORIDE 0.9% 50 ML IV PRN ×2 (03:44→13:26)
[2018-10-28] MEDS: hydrALAzine 20 MG INJ IV PRN (04:17)
[2018-10-28] MEDS: HYOSCYAMINE 0.125 MG SUBL TAB PO SCH ×3 (06:07→21:28)
[2018-10-28] MEDS: SPIRONOLACTONE 50 MG TAB PO SCH ×2 (06:07→18:41)
[2018-10-28] MEDS: PANTOPRAZOLE 40 MG INJ IV SCH ×2 (06:07→18:40)
[2018-10-28] MEDS: SUCRALFATE 1 GM TAB PO SCH ×4 (08:32→21:25)
[2018-10-28] MEDS: LOSARTAN 50 MG TAB PO SCH (08:34)
[2018-10-28] MEDS: LABETALOL 200 MG TAB PO SCH ×2 (08:34→21:27)
[2018-10-28] MEDS: CLONIDINE 0.3 MG/24 HR PATCH TRANSDERM SCH (08:35)
--- NOTE | 2018-10-28 10:08 | CONS ---
Assessment/Plan Assessment/Plan Assessment/Plan (Daily) Assessment and recommendations; 1. Patient with history of chronic renal failure on hemodialysis admitted with hypertensive urgency with significant overall interval improvement. 2. underlying severe pulmonary hypertension. 3. Mild anemia. 4. Diabetes. 5. Systemic hypertension. 6. Recent right lower extremity fracture. Continue current supportive care. Connective tissue disease work-up is pending. Patient also will need to have right heart catheterization with vasodilator study. Consider discharge when clinically stable. Patient will need home oxygen. Consultation Date/Type/Reason Admit Date/Time Oct 19, 2018 at 23:42 Initial Consult Date 10/27/18 Type of Consult Pulmonary Patient's condition is stable. Denies any shortness of breath, chest pain. General exam; young woman, awake and alert. Currently in no distress. Reason for Consultation H ENT exam; supple neck, no JVD. No lymphadenopathy. Midline trachea. No thyromegaly. Patient has fair dentition. No neck masses. Chest exam; clear to auscultation. S1-S2 audible, no murmurs. Loud P2. Abdomen exam; soft, nontender. No organomegaly. Bowel sounds audible. Extremity exam; no peripheral edema clubbing. WEAVER HAND LOOM exam; no focal deficit. Requesting Provider: MARGA CARABALLO Date/Time of Note DATE: 10/28/18 TIME: 10:06 Exam/Review of Systems Exam Vitals Vital Signs Date Temp Pulse Resp B/P (MAP) Pulse Ox O2 O2 Flow FiO2 Time Delivery Rate 10/28/18 87 08:36 10/28/18 98.4 18 197/79 100 07:59 (118) 10/28/18 Nasal 04:19 Cannula 10/28/18 1.5 04:00 Intake and Output 10/27/18 10/27/18 10/28/18 1515:00 23:00 07:00 IntakeIntake Total 800 ml 504 ml 454 ml OutputOutput Total 1500 ml BalanceBalance -700 ml 504 ml 454 ml Results Result Diagram: 10/28/18 0734 10/28/18 0734 Results 24hrs Laboratory Tests Test 10/27/18 11:24 10/27/18 18:43 10/27/18 20:37 10/28/18 05:00 Bedside Glucose 164 94 71 Blood Gas Blood arterial Specimen Source Arterial Blood 10/28/2018 4:40:1 Date Drawn 9 AM Arterial Blood pH 7.403 (Temp corrected) Arterial Blood 39.7 pCO2 (Temp correct) Arterial Blood 105.4 H pO2 (Temp corrected) Arterial Blood 24.2 HCO3 Arterial Blood -0.5 Base Excess Arterial Blood 97.9 Oxygen Saturation Maicol Test ACCEPTAB Arterial Blood Right Radial Gas Puncture Site Arterial 0.8 Blood Carboxyhemo globin Arterial Blood 0.3 Methemoglobin Blood Gas A-a O2 32.9 H Differential Oxyhemoglobin 96.8 Percent Blood Gas 37.0 Temperature Blood Gas NASAL CANNULA Modality FiO2 26.0 Blood Gas LW Notified Whom Blood Gas 10/28/2018 4:51:1 Notified Time 5 AM Test 10/28/18 07:34 10/28/18 08:07 White Blood Count 5.8 # Red Blood Count 3.17 L Hemoglobin 9.4 L Hematocrit 30.0 L Mean Corpuscular 94.6 Volume Mean Corpuscular 29.7 Hemoglobin Mean Corpuscular 31.3 L Hemoglobin Concen t Red Cell 16.3 H Distribution Width Platelet Count 206 Mean Platelet 9.9 Volume Immature 0.200 Granulocytes % Neutrophils % 79.4 H Lymphocytes % 6.0 L Monocytes % 8.9 Eosinophils % 4.6 Basophils % 0.9 Nucleated Red 0.0 Blood Cells % Immature 0.010 Granulocytes # Neutrophils # 4.6 Lymphocytes # 0.4 L Monocytes # 0.5 Eosinophils # 0.3 Basophils # 0.1 Nucleated Red 0.0 Blood Cells # Sodium Level 141 Potassium Level 3.9 Chloride Level 103 Carbon Dioxide 23 Level Anion Gap 15 H Blood Urea 14 Nitrogen Creatinine 3.92 H Est Glomerular 14 L Filtrat Rate mL/min Glucose Level 203 # Calcium Level 9.5 Bedside Glucose 229 H Medications Medication Current Medications Nitroglycerin (Nitroglycerin (Sl Tab) 0.4 Mg) 1 tab Q5M PRN SL CHEST PAIN Last administered on 10/20/18at 12:28; Admin Dose 1 TAB; Start 10/20/18 at 00:00 Acetaminophen (Tylenol Liquid) 650 mg Q6H PRN PO PAIN LEVEL 1-3 OR FEVER; Start 10/20/18 at 00:00 Docusate Sodium (Colace) 100 mg Q12H PRN PO CONSTIPATION; Start 10/20/18 at 00:00 Bisacodyl (Dulcolax) 5 mg DAILY PRN PO CONSTIPATION; Start 10/20/18 at 00:00 Clonidine HCl (Catapres-Tts 3 Patch) 2 patch Q7D TRANSDERM Last administered on 10/28/18at 08:35; Admin Dose 2 PATCH; Start 10/21/18 at 09:00 Diagnostic Test (Pha) (Accu-Chek) 1 ea 02 XX Last administered on 10/24/18at 01:06; Admin Dose 1 EA; Start 10/21/18 at 02:00 Miscellaneous Information 1 ea NOTE XX ; Start 10/20/18 at 10:30 Glucose (Glutose) 15 gm Q15M PRN PO DECREASED GLUCOSE; Start 10/20/18 at 10:30 Glucose (Glutose) 22.5 gm Q15M PRN PO DECREASED GLUCOSE Last administered on 10/20/18at 17:16; Admin Dose 22.5 GM; Start 10/20/18 at 10:30 Dextrose (D50w Syringe) 25 ml Q15M PRN IV DECREASED GLUCOSE Last administered on 10/20/18at 17:34; Admin Dose 25 ML; Start 10/20/18 at 10:30 Dextrose (D50w Syringe) 50 ml Q15M PRN IV DECREASED GLUCOSE; Start 10/20/18 at 10:30 Glucagon (Glucagen) 1 mg Q15M PRN IM DECREASED GLUCOSE; Start 10/20/18 at 10:30 Glucose (Glutose) 15 gm Q15M PRN BUCCAL DECREASED GLUCOSE; Start 10/20/18 at 10:30 Heparin Sodium (Porcine) (Heparin (1000 Units/ml)) 3,700 unit AFTER DIALYSIS CATHETER Last administered on 10/27/18at 11:06; Admin Dose 3,700 UNIT; Start 10/21/18 at 08:00 Trimethobenzamide HCl (Tigan) 200 mg Q6H PRN IM NAUSEA AND/OR VOMITING Last administered on 10/27/18 17:21; Admin Dose 200 MG; Start 10/21/18 at 13:00 Calcium Carbonate (Ca Carbonate) 750 mg Q2H PRN PO GI; Start 10/21/18 at 15:00 Clonidine (Catapres) 0.4 mg BID PO Last administered on 10/28/18 08:33; Admin Dose 0.4 MG; Start 10/21/18 at 14:00 Hydromorphone HCl (Dilaudid) 2 mg Q4H PRN PO PAIN; Start 10/21/18 at 14:00 Labetalol HCl (Normodyne) 1,200 mg BID PO Last administered on 10/28/18at 08:34; Admin Dose 1,200 MG; Start 10/21/18 at 14:00 Loperamide HCl (Imodium Cap) 2 mg TID PRN PO DIARRHEA Last administered on 10/26/18at 00:21; Admin Dose 2 MG; Start 10/21/18 at 14:00 Pantoprazole (Protonix Tab) 40 mg BID PO ; Start 10/21/18 at 14:00; Status Hold Ondansetron HCl 8 mg/Sodium Chloride 54 ml @ 216 mls/hr Q4H PRN IV NAUSEA AND/OR VOMITING Last administered on 10/28/18 03:44; Admin Dose 216 MLS/HR; Start 10/21/18 at 14:30 Insulin Aspart (Novolog Insulin Pen) NOVOLOG *CUSTOM* ALGORITHM AC MEALS AND BEDTIME SC Last administered on 10/27/18 08:30; Admin Dose 3 UNIT; Start 10/21/18 at 21:00 Al Hydrox/Mg Hydrox/Simethicone (Mag-Al Plus) 30 ml Q6H PRN PO GASTROINTESTINAL UPSET; Start 10/22/18 at 01:30 Epoetin Vic-epbx (RETACRIT(esrd)) 10,000 unit MoWeFr@1700 SC Last administered on 10/25/18at 18:39; Admin Dose 10,000 UNIT; Start 10/23/18 at 17:00 Enalaprilat (Vasotec Iv) 1.25 mg Q6H PRN IV BLOOD PRESSURE SUPPORT; Start 10/22/18 at 11:00; Status Hold Pantoprazole (Protonix Iv) 40 mg BID@06,18 IV Last administered on 10/28/18at 06:07; Admin Dose 40 MG; Start 10/22/18 at 11:00 Levalbuterol (Xopenex Neb) 0.63 mg Q4H RESP THERAPY PRN HHN WHEEZING; Start 10/22/18 at 11:00 Methylnaltrexone [place] (Relistor) 12 mg Q48H SC Last administered on 10/22/18at 15:56; Admin Dose 12 MG; Start 10/22/18 at 15:30 Hydralazine HCl (Apresoline) 100 mg TID PO Last administered on 10/28/18 08:34; Admin Dose 100 MG; Start 10/25/18 at 09:00 Labetalol HCl (Labetalol) 20 mg Q4H PRN IV ELEVATED BLOOD PRESSURE Last administered on 10/26/18 02:38; Admin Dose 20 MG; Start 10/25/18 at 15:00 Hydralazine HCl (Apresoline) 20 mg Q4H PRN IV SYS BP > 150 Last administered on 10/28/18 04:17; Admin Dose 20 MG; Start 10/25/18 at 11:30 Insulin Aspart (Novolog Insulin Pen) 4 unit WITH MEALS SC Last administered on 10/27/18 18:51; Admin Dose 4 UNIT; Start 10/25/18 at 17:55 Insulin Glargine (Lantus) 12 units DAILY@1000 SC Last administered on 10/27/18 09:29; Admin Dose 12 UNITS; Start 10/26/18 at 10:00 Hydromorphone HCl (Dilaudid) 1 mg Q3H PRN IV SEVERE PAIN LEVEL 7-10 Last administered on 10/28/18 08:36; Admin Dose 1 MG; Start 10/25/18 at 15:30 Sucralfate (Carafate) 1 gm QID PO Last administered on 10/28/18 08:32; Admin Dose 1 GM; Start 10/25/18 at 17:00 Hyoscyamine (Levsin (Sl)) 0.125 mg Q8 PO Last administered on 10/28/18 06:07; Admin Dose 0.125 MG; Start 10/25/18 at 16:00 Diphenhydramine HCl (Benadryl) 50 mg PRN PRN IV ITCHING Last administered on 10/26/18 21:04; Admin Dose 50 MG; Start 10/25/18 at 17:00 Diphenhydramine HCl (Benadryl) 25 mg PRN PRN IV ITCHING Last administered on 10/26/18 16:56; Admin Dose 25 MG; Start 10/25/18 at 17:00 Losartan Potassium (Cozaar) 100 mg DAILY PO Last administered on 10/28/18 08:34; Admin Dose 100 MG; Start 4/28/19 at 09:00 Spironolactone (Aldactone) 50 mg BID DIURETICS PO Last administered on 10/28/18at 06:07; Admin Dose 50 MG; Start 10/26/18 at 18:00 Diphenhydramine HCl (Benadryl) 50 mg Q6H PRN PO ITCHING; Start 10/27/18 at 01:30 ARTHUR PARSONS Oct 28, 2018 10:08
[2018-10-28] MEDS: INSULIN ASPART [NOVOLOG] 3 ML PEN SC SCH ×7 (10:20→21:00)
[2018-10-28] MEDS: INSULIN GLARGINE [LANTus] (100 UNITS/ML) SYG SC SCH ×2 (10:21→23:45)
[2018-10-28] MEDS: DIPHENHYDRAMINE 50 MG INJ IV PRN ×4 (11:01→23:53)
[2018-10-28] MEDS: LABETALOL HCL 20MG INJ IV PRN (11:04)
--- NOTE | 2018-10-28 11:27 | CONS ---
Assessment/Plan Assessment/Plan Hospital Course (Demo Recall) Severe pulm HTN: PAP 96 mmHg on echo. ?primary vs secondary. Seen by pulmonary and workup initiated. Will need outpt RHC at some point. Hypertensive urgency/malignant HTN: Apparently at home BP is 150s on home regimen so likely contribution here from pain, N/V, volume status. Better controlled when not in pain. N/V: being evaluated by GI.?gastroparesis especially with pain meds Anemia: s/p 2 units. No active bleeding and hgb stable for few days PUD: had EGD 1 month prior at [facility] Right tibiofibular fracture due to mechanical fall ESRD on HD DM -if pain is controlled and secondarily her BP is controlled, ok for d/c from my perspective with outpt pulmonary f/u for treatment and workup of her pulmonary HTN -losartan 100mg -continue hydralazine 100mg TID -labetolol 1200mg BID -clonidine patch and 0.4mg BID -caution with aldactone 50mg BID in setting of HD but per pt her K is usually normal Consultation Date/Type/Reason Admit Date/Time Oct 19, 2018 at 23:42 Initial Consult Date 10/26/18 Type of Consult Cardiology Requesting Provider: MARGA CARABALLO Date/Time of Note DATE: 10/28/18 TIME: 11:24 24 HR Interval Summary Free Text/Dictation BP controlled except when she has leg pain and increases to >200. Pain was doing well for the past 2 days but worse since last night which correlates with her BP. Seen by pulm and workup initiated Exam/Review of Systems Vital Signs Vitals Vital Signs Date Temp Pulse Resp B/P (MAP) Pulse Ox O2 O2 Flow FiO2 Time Delivery Rate 10/28/18 87 08:36 10/28/18 98.4 18 197/79 100 07:59 (118) 10/28/18 Nasal 04:19 Cannula 10/28/18 1.5 04:00 Intake and Output 10/27/18 10/27/18 10/28/18 1414:59 22:59 06:59 IntakeIntake Total 800 ml 504 ml 454 ml OutputOutput Total 1500 ml BalanceBalance -700 ml 504 ml 454 ml Exam Constitutional: alert, oriented Psych: no complaints, nl mood/affect Neck: supple; No jvd Respiratory: clear to auscultation; No crackles/rales Cardiovascular: regular rate and rhythm, edema (1+), systolic murmur (2/6 FRED) Gastrointestinal: soft, non-tender; No distended Neurological: nl mental status, nl speech Labs Result Diagram: 10/28/18 0734 10/28/18 0734 Results 24hrs Laboratory Tests Test 10/27/18 18:43 10/27/18 20:37 10/28/18 05:00 10/28/18 07:34 Bedside Glucose 94 71 Blood Gas Blood arterial Specimen Source Arterial Blood 10/28/2018 4:40:1 Date Drawn 9 AM Arterial Blood pH 7.403 (Temp corrected) Arterial Blood 39.7 pCO2 (Temp correct) Arterial Blood 105.4 H pO2 (Temp corrected) Arterial Blood 24.2 HCO3 Arterial Blood -0.5 Base Excess Arterial Blood 97.9 Oxygen Saturation Maicol Test ACCEPTAB Arterial Blood Right Radial Gas Puncture Site Arterial 0.8 Blood Carboxyhemo globin Arterial Blood 0.3 Methemoglobin Blood Gas A-a O2 32.9 H Differential Oxyhemoglobin 96.8 Percent Blood Gas 37.0 Temperature Blood Gas NASAL CANNULA Modality FiO2 26.0 Blood Gas LW Notified Whom Blood Gas 10/28/2018 4:51:1 Notified Time 5 AM White Blood Count 5.8 # Red Blood Count 3.17 L Hemoglobin 9.4 L Hematocrit 30.0 L Mean Corpuscular 94.6 Volume Mean Corpuscular 29.7 Hemoglobin Mean Corpuscular 31.3 L Hemoglobin Concen t Red Cell 16.3 H Distribution Width Platelet Count 206 Mean Platelet 9.9 Volume Immature 0.200 Granulocytes % Neutrophils % 79.4 H Lymphocytes % 6.0 L Monocytes % 8.9 Eosinophils % 4.6 Basophils % 0.9 Nucleated Red 0.0 Blood Cells % Immature 0.010 Granulocytes # Neutrophils # 4.6 Lymphocytes # 0.4 L Monocytes # 0.5 Eosinophils # 0.3 Basophils # 0.1 Nucleated Red 0.0 Blood Cells # Sodium Level 141 Potassium Level 3.9 Chloride Level 103 Carbon Dioxide 23 Level Anion Gap 15 H Blood Urea 14 Nitrogen Creatinine 3.92 H Est Glomerular 14 L Filtrat Rate mL/min Glucose Level 203 # Calcium Level 9.5 Test 10/28/18 08:07 10/28/18 10:10 Bedside Glucose 229 H 242 H Medications Medications Current Medications Nitroglycerin (Nitroglycerin (Sl Tab) 0.4 Mg) 1 tab Q5M PRN SL CHEST PAIN Last administered on 10/20/18at 12:28; Admin Dose 1 TAB; Start 10/20/18 at 00:00 Acetaminophen (Tylenol Liquid) 650 mg Q6H PRN PO PAIN LEVEL 1-3 OR FEVER; Start 10/20/18 at 00:00 Docusate Sodium (Colace) 100 mg Q12H PRN PO CONSTIPATION; Start 10/20/18 at 00:00 Bisacodyl (Dulcolax) 5 mg DAILY PRN PO CONSTIPATION; Start 10/20/18 at 00:00 Clonidine HCl (Catapres-Tts 3 Patch) 2 patch Q7D TRANSDERM Last administered on 10/28/18at 08:35; Admin Dose 2 PATCH; Start 10/21/18 at 09:00 Diagnostic Test (Pha) (Accu-Chek) 1 ea 02 XX Last administered on 10/24/18at 01:06; Admin Dose 1 EA; Start 10/21/18 at 02:00 Miscellaneous Information 1 ea NOTE XX ; Start 10/20/18 at 10:30 Glucose (Glutose) 15 gm Q15M PRN PO DECREASED GLUCOSE; Start 10/20/18 at 10:30 Glucose (Glutose) 22.5 gm Q15M PRN PO DECREASED GLUCOSE Last administered on 10/20/18at 17:16; Admin Dose 22.5 GM; Start 10/20/18 at 10:30 Dextrose (D50w Syringe) 25 ml Q15M PRN IV DECREASED GLUCOSE Last administered on 10/20/18at 17:34; Admin Dose 25 ML; Start 10/20/18 at 10:30 Dextrose (D50w Syringe) 50 ml Q15M PRN IV DECREASED GLUCOSE; Start 10/20/18 at 10:30 Glucagon (Glucagen) 1 mg Q15M PRN IM DECREASED GLUCOSE; Start 10/20/18 at 10:30 Glucose (Glutose) 15 gm Q15M PRN BUCCAL DECREASED GLUCOSE; Start 10/20/18 at 10:30 Heparin Sodium (Porcine) (Heparin (1000 Units/ml)) 3,700 unit AFTER DIALYSIS CATHETER Last administered on 10/27/18at 11:06; Admin Dose 3,700 UNIT; Start 10/21/18 at 08:00 Trimethobenzamide HCl (Tigan) 200 mg Q6H PRN IM NAUSEA AND/OR VOMITING Last administered on 10/27/18 17:21; Admin Dose 200 MG; Start 10/21/18 at 13:00 Calcium Carbonate (Ca Carbonate) 750 mg Q2H PRN PO GI; Start 10/21/18 at 15:00 Clonidine (Catapres) 0.4 mg BID PO Last administered on 10/28/18 08:33; Admin Dose 0.4 MG; Start 10/21/18 at 14:00 Labetalol HCl (Normodyne) 1,200 mg BID PO Last administered on 10/28/18 08:34; Admin Dose 1,200 MG; Start 10/21/18 at 14:00 Loperamide HCl (Imodium Cap) 2 mg TID PRN PO DIARRHEA Last administered on 10/26/18 00:21; Admin Dose 2 MG; Start 10/21/18 at 14:00 Pantoprazole (Protonix Tab) 40 mg BID PO ; Start 10/21/18 at 14:00; Status Hold Ondansetron HCl 8 mg/Sodium Chloride 54 ml @ 216 mls/hr Q4H PRN IV NAUSEA AND/OR VOMITING Last administered on 10/28/18 03:44; Admin Dose 216 MLS/HR; Start 10/21/18 at 14:30 Insulin Aspart (Novolog Insulin Pen) NOVOLOG *CUSTOM* ALGORITHM AC MEALS AND BEDTIME SC Last administered on 10/28/18 10:21; Admin Dose 1 UNIT; Start 10/21/18 at 21:00 Al Hydrox/Mg Hydrox/Simethicone (Mag-Al Plus) 30 ml Q6H PRN PO GASTROINTESTINAL UPSET; Start 10/22/18 at 01:30 Epoetin Vic-epbx (RETACRIT(esrd)) 10,000 unit MoWeFr@1700 SC Last administered on 10/25/18 18:39; Admin Dose 10,000 UNIT; Start 10/23/18 at 17:00 Enalaprilat (Vasotec Iv) 1.25 mg Q6H PRN IV BLOOD PRESSURE SUPPORT; Start 10/22/18 at 11:00; Status Hold Pantoprazole (Protonix Iv) 40 mg BID@18 IV Last administered on 10/28/18 06:07; Admin Dose 40 MG; Start 10/22/18 at 11:00 Levalbuterol (Xopenex Neb) 0.63 mg Q4H RESP THERAPY PRN HHN WHEEZING; Start 10/22/18 at 11:00 Methylnaltrexone [place] (Relistor) 12 mg Q48H SC Last administered on 10/22/18 15:56; Admin Dose 12 MG; Start 10/22/18 at 15:30 Hydralazine HCl (Apresoline) 100 mg TID PO Last administered on 10/28/18 08:34; Admin Dose 100 MG; Start 10/25/18 at 09:00 Labetalol HCl (Labetalol) 20 mg Q4H PRN IV ELEVATED BLOOD PRESSURE Last administered on 10/28/18 11:04; Admin Dose 20 MG; Start 10/25/18 at 15:00 Hydralazine HCl (Apresoline) 20 mg Q4H PRN IV SYS BP > 150 Last administered on 10/28/18 04:17; Admin Dose 20 MG; Start 10/25/18 at 11:30 Insulin Aspart (Novolog Insulin Pen) 4 unit WITH MEALS SC Last administered on 10/28/18 10:20; Admin Dose 4 UNIT; Start 10/25/18 at 17:55 Insulin Glargine (Lantus) 12 units DAILY@1000 SC Last administered on 10/28/18 10:21; Admin Dose 12 UNITS; Start 10/26/18 at 10:00 Hydromorphone HCl (Dilaudid) 1 mg Q3H PRN IV BREAKTHROUGH PAIN Last administered on 10/28/18 08:36; Admin Dose 1 MG; Start 10/25/18 at 15:30 Sucralfate (Carafate) 1 gm QID PO Last administered on 10/28/18 08:32; Admin Dose 1 GM; Start 10/25/18 at 17:00 Hyoscyamine (Levsin (Sl)) 0.125 mg Q8 PO Last administered on 10/28/18 06:07; Admin Dose 0.125 MG; Start 10/25/18 at 16:00 Diphenhydramine HCl (Benadryl) 50 mg PRN PRN IV ITCHING Last administered on 10/26/18 21:04; Admin Dose 50 MG; Start 10/25/18 at 17:00 Losartan Potassium (Cozaar) 100 mg DAILY PO Last administered on 10/28/18at 08:34; Admin Dose 100 MG; Start 10/27/18 at 09:00 Spironolactone (Aldactone) 50 mg BID DIURETICS PO Last administered on 10/28/18at 06:07; Admin Dose 50 MG; Start 10/26/18 at 18:00 Diphenhydramine HCl (Benadryl) 50 mg Q6H PRN PO ITCHING; Start 10/27/18 at 01:30 Diphenhydramine HCl (Benadryl) 25 mg Q4H PRN IV ITCHING Last administered on 10/28/18at 11:01; Admin Dose 25 MG; Start 10/28/18 at 13:00 Hydromorphone HCl (Dilaudid) 4 mg Q4H PRN PO SEVERE PAIN LEVEL 7-10; Start 10/28/18 at 11:30; Status UNV MARGA CARABALLO Oct 28, 2018 11:27
[2018-10-28] MEDS ORDERED: HYDROmorphONE 4 MG TAB PO PRN (11:30)
--- NOTE | 2018-10-28 14:18 | CONS ---
Assessment/Plan Assessment/Plan Hospital Course (Demo Recall) Alert, looks comfortable, afebrile Indwelling: Right chest permacath Microbiology: Blood cultures negative since admission MRSA swab negative Chest x-ray on admission revealed no acute cardiopulmonary disease. Right lower extremity CT revealed soft tissue swelling surrounding community it slightly impacted fracture of the proximal meet DF pieces of the tibia and fibula. Knee joint fluid extending to the suprapatellar bursa Extremity venous study revealed no DVT of the right lower extremity Allergy: Clindamycin Physical examination: This is a chronically ill-appearing middle-aged woman who is in no distress. Head atraumatic normocephalic sclera nonicteric vehicle mucosa dry neck is supple chest rise symmetrical breath sounds diminished bases. Heart: S1-S2. Abdomen distended soft, bowel sounds present. Extremities with right lower extremity significant erythema edema and bruising Assessment: 1. Right lower extremity fracture 2. Uncontrolled hypertension 3. Diabetes 4. End-stage renal disease, hemodialysis dependent 5. Persistent nausea 6. Back pain, status post CT scan Plan: Remains stable off abx Consultation Date/Type/Reason Admit Date/Time Oct 19, 2018 at 23:42 Initial Consult Date Type of Consult id Requesting Provider: MARGA CARABALLO Date/Time of Note DATE: 10/28/18 TIME: 14:17 Exam/Review of Systems Exam Vitals Vital Signs Date Temp Pulse Resp B/P (MAP) Pulse Ox O2 O2 Flow FiO2 Time Delivery Rate 10/28/18 87 12:11 10/28/18 98.2 18 188/81 93 11:39 (116) 10/28/18 Nasal 04:19 Cannula 10/28/18 1.5 04:00 Intake and Output 10/27/18 10/27/18 10/28/18 1515:00 23:00 07:00 IntakeIntake Total 800 ml 504 ml 454 ml OutputOutput Total 1500 ml BalanceBalance -700 ml 504 ml 454 ml Results Result Diagram: 10/28/18 0734 10/28/18 0734 Results 24hrs Laboratory Tests Test 10/27/18 18:43 10/27/18 20:37 10/28/18 05:00 10/28/18 07:34 Bedside Glucose 94 71 Blood Gas Blood arterial Specimen Source Arterial Blood 10/28/2018 4:40:1 Date Drawn 9 AM Arterial Blood pH 7.403 (Temp corrected) Arterial Blood 39.7 pCO2 (Temp correct) Arterial Blood 105.4 H pO2 (Temp corrected) Arterial Blood 24.2 HCO3 Arterial Blood -0.5 Base Excess Arterial Blood 97.9 Oxygen Saturation Maicol Test ACCEPTAB Arterial Blood Right Radial Gas Puncture Site Arterial 0.8 Blood Carboxyhemo globin Arterial Blood 0.3 Methemoglobin Blood Gas A-a O2 32.9 H Differential Oxyhemoglobin 96.8 Percent Blood Gas 37.0 Temperature Blood Gas NASAL CANNULA Modality FiO2 26.0 Blood Gas LW Notified Whom Blood Gas 10/28/2018 4:51:1 Notified Time 5 AM White Blood Count 5.8 # Red Blood Count 3.17 L Hemoglobin 9.4 L Hematocrit 30.0 L Mean Corpuscular 94.6 Volume Mean Corpuscular 29.7 Hemoglobin Mean Corpuscular 31.3 L Hemoglobin Concen t Red Cell 16.3 H Distribution Width Platelet Count 206 Mean Platelet 9.9 Volume Immature 0.200 Granulocytes % Neutrophils % 79.4 H Lymphocytes % 6.0 L Monocytes % 8.9 Eosinophils % 4.6 Basophils % 0.9 Nucleated Red 0.0 Blood Cells % Immature 0.010 Granulocytes # Neutrophils # 4.6 Lymphocytes # 0.4 L Monocytes # 0.5 Eosinophils # 0.3 Basophils # 0.1 Nucleated Red 0.0 Blood Cells # Sodium Level 141 Potassium Level 3.9 Chloride Level 103 Carbon Dioxide 23 Level Anion Gap 15 H Blood Urea 14 Nitrogen Creatinine 3.92 H Est Glomerular 14 L Filtrat Rate mL/min Glucose Level 203 # Calcium Level 9.5 Test 10/28/18 08:07 10/28/18 10:10 10/28/18 12:04 Bedside Glucose 229 H 242 H 177 Medications Medication Current Medications Nitroglycerin (Nitroglycerin (Sl Tab) 0.4 Mg) 1 tab Q5M PRN SL CHEST PAIN Last administered on 10/20/18at 12:28; Admin Dose 1 TAB; Start 10/20/18 at 00:00 Acetaminophen (Tylenol Liquid) 650 mg Q6H PRN PO PAIN LEVEL 1-3 OR FEVER; Start 10/20/18 at 00:00 Docusate Sodium (Colace) 100 mg Q12H PRN PO CONSTIPATION; Start 10/20/18 at 00:00 Bisacodyl (Dulcolax) 5 mg DAILY PRN PO CONSTIPATION; Start 10/20/18 at 00:00 Clonidine HCl (Catapres-Tts 3 Patch) 2 patch Q7D TRANSDERM Last administered on 10/28/18at 08:35; Admin Dose 2 PATCH; Start 10/21/18 at 09:00 Diagnostic Test (Pha) (Accu-Chek) 1 ea 02 XX Last administered on 10/24/18at 01:06; Admin Dose 1 EA; Start 10/21/18 at 02:00 Miscellaneous Information 1 ea NOTE XX ; Start 10/20/18 at 10:30 Glucose (Glutose) 15 gm Q15M PRN PO DECREASED GLUCOSE; Start 10/20/18 at 10:30 Glucose (Glutose) 22.5 gm Q15M PRN PO DECREASED GLUCOSE Last administered on 10/20/18at 17:16; Admin Dose 22.5 GM; Start 10/20/18 at 10:30 Dextrose (D50w Syringe) 25 ml Q15M PRN IV DECREASED GLUCOSE Last administered on 10/20/18at 17:34; Admin Dose 25 ML; Start 10/20/18 at 10:30 Dextrose (D50w Syringe) 50 ml Q15M PRN IV DECREASED GLUCOSE; Start 10/20/18 at 10:30 Glucagon (Glucagen) 1 mg Q15M PRN IM DECREASED GLUCOSE; Start 10/20/18 at 10:30 Glucose (Glutose) 15 gm Q15M PRN BUCCAL DECREASED GLUCOSE; Start 10/20/18 at 10:30 Heparin Sodium (Porcine) (Heparin (1000 Units/ml)) 3,700 unit AFTER DIALYSIS CATHETER Last administered on 10/27/18at 11:06; Admin Dose 3,700 UNIT; Start 10/21/18 at 08:00 Trimethobenzamide HCl (Tigan) 200 mg Q6H PRN IM NAUSEA AND/OR VOMITING Last administered on 10/27/18at 17:21; Admin Dose 200 MG; Start 10/21/18 at 13:00 Calcium Carbonate (Ca Carbonate) 750 mg Q2H PRN PO GI; Start 10/21/18 at 15:00 Clonidine (Catapres) 0.4 mg BID PO Last administered on 10/28/18 08:33; Admin Dose 0.4 MG; Start 10/21/18 at 14:00 Labetalol HCl (Normodyne) 1,200 mg BID PO Last administered on 10/28/18 08:34; Admin Dose 1,200 MG; Start 10/21/18 at 14:00 Loperamide HCl (Imodium Cap) 2 mg TID PRN PO DIARRHEA Last administered on 10/26/18 00:21; Admin Dose 2 MG; Start 10/21/18 at 14:00 Pantoprazole (Protonix Tab) 40 mg BID PO ; Start 10/21/18 at 14:00; Status Hold Ondansetron HCl 8 mg/Sodium Chloride 54 ml @ 216 mls/hr Q4H PRN IV NAUSEA AND/OR VOMITING Last administered on 10/28/18 13:26; Admin Dose 216 MLS/HR; Start 10/21/18 at 14:30 Insulin Aspart (Novolog Insulin Pen) NOVOLOG *CUSTOM* ALGORITHM AC MEALS AND BEDTIME SC Last administered on 10/28/18 10:21; Admin Dose 1 UNIT; Start 10/21/18 at 21:00 Al Hydrox/Mg Hydrox/Simethicone (Mag-Al Plus) 30 ml Q6H PRN PO GASTROINTESTINAL UPSET; Start 10/22/18 at 01:30 Epoetin Vic-epbx (RETACRIT(esrd)) 10,000 unit MoWeFr@1700 SC Last administered on 10/25/18 18:39; Admin Dose 10,000 UNIT; Start 10/23/18 at 17:00 Enalaprilat (Vasotec Iv) 1.25 mg Q6H PRN IV BLOOD PRESSURE SUPPORT; Start 10/22/18 at 11:00; Status Hold Pantoprazole (Protonix Iv) 40 mg BID@06,18 IV Last administered on 10/28/18 06:07; Admin Dose 40 MG; Start 10/22/18 at 11:00 Levalbuterol (Xopenex Neb) 0.63 mg Q4H RESP THERAPY PRN HHN WHEEZING; Start 10/22/18 at 11:00 Methylnaltrexone [place] (Relistor) 12 mg Q48H SC Last administered on 10/22/18at 15:56; Admin Dose 12 MG; Start 10/22/18 at 15:30 Hydralazine HCl (Apresoline) 100 mg TID PO Last administered on 10/28/18 13:17; Admin Dose 100 MG; Start 10/25/18 at 09:00 Labetalol HCl (Labetalol) 20 mg Q4H PRN IV ELEVATED BLOOD PRESSURE Last administered on 10/28/18 11:04; Admin Dose 20 MG; Start 10/25/18 at 15:00 Hydralazine HCl (Apresoline) 20 mg Q4H PRN IV SYS BP > 150 Last administered on 10/28/18 04:17; Admin Dose 20 MG; Start 10/25/18 at 11:30 Insulin Aspart (Novolog Insulin Pen) 4 unit WITH MEALS SC Last administered on 10/28/18 12:18; Admin Dose 4 UNIT; Start 10/25/18 at 17:55 Insulin Glargine (Lantus) 12 units DAILY@1000 SC Last administered on 10/28/18 10:21; Admin Dose 12 UNITS; Start 10/26/18 at 10:00 Hydromorphone HCl (Dilaudid) 1 mg Q3H PRN IV BREAKTHROUGH PAIN Last administered on 10/28/18 12:05; Admin Dose 1 MG; Start 10/25/18 at 15:30 Sucralfate (Carafate) 1 gm QID PO Last administered on 10/28/18 13:17; Admin Dose 1 GM; Start 10/25/18 at 17:00 Hyoscyamine (Levsin (Sl)) 0.125 mg Q8 PO Last administered on 10/28/18 13:20; Admin Dose 0.125 MG; Start 10/25/18 at 16:00 Diphenhydramine HCl (Benadryl) 50 mg PRN PRN IV ITCHING Last administered on 10/26/18 21:04; Admin Dose 50 MG; Start 10/25/18 at 17:00 Losartan Potassium (Cozaar) 100 mg DAILY PO Last administered on 10/28/18 08:34; Admin Dose 100 MG; Start 10/27/18 at 09:00 Spironolactone (Aldactone) 50 mg BID DIURETICS PO Last administered on 10/28/18 06:07; Admin Dose 50 MG; Start 10/26/18 at 18:00 Diphenhydramine HCl (Benadryl) 50 mg Q6H PRN PO ITCHING; Start 10/27/18 at 01:30 Diphenhydramine HCl (Benadryl) 25 mg Q4H PRN IV ITCHING Last administered on 10/28/18at 11:01; Admin Dose 25 MG; Start 10/28/18 at 13:00 Hydromorphone HCl (Dilaudid) 4 mg Q4H PRN PO SEVERE PAIN LEVEL 7-10 Last administered on 10/28/18at 11:33; Admin Dose 4 MG; Start 10/28/18 at 11:30 RORY CRUM NP Oct 28, 2018 14:18
--- NOTE | 2018-10-28 15:03 | PN ---
Date/Time of Note Date/Time of Note DATE: 10/28/18 TIME: 15:01 Assessment/Plan VTE Prophylaxis Risk score (from Ns)>0 risk: 11 SCD applied (from Ns): No SCD contraindicated: bilateral LE trauma Pharmacological prophylaxis: NA/contraindicated Pharm contraindication: renal impairment Lines/Catheters IV [facility]from [facility] Mid Line Urinary Cath still in place: No Assessment/Plan Hospital Course Assessment: Persistent nausea/vomiting -R/o 2/2 reduction in pain medication vs gastroparesis vs obstruction vs other Hx of gastroparesis Type I diabetes- with hyperglycemia H/o PUD IBS - D HTN Normocytic anemia ESRD- on HD Right tib/fib fracture- followed by ortho Severe Pulmonary HTN Partially Plan: Continue PPI/Carafate Pt is tolerating current diet- we will continue to slowly advance to bora al/diabetic diet Stool for H. pylori- pending Continue Zofran/Tigan Patient seen in collaboration with Dr. augustine Subjective: Course reviewed with nursing staff Patient interviewed and examined All labs, imaging and other results reviewed She states she is feeling a little better today, she worked with PT. Continues to have nausea- no vomiting today. PHYSICAL EXAMINATION: GENERAL: Well developed, alert & oriented x 3, no distress SKIN: Dialysis catheter. EYES: Pupils equal reactive to light, no discharge. EARS/NOSE AND THROAT: Ears normal, nose normal NECK: Supple, no masses CHEST: Inspection within normal limits. CARDIOVASCULAR: Heart: Regular rate and rhythm RESPIRATORY: Lungs clear to auscultation GASTROINTESTINAL AND LIVER: Abdomen: Soft, Moderated epigastric tenderness, non- distended, no hernias, no masses, no organomegaly, no ascites, no guarding, no rebound tenderness, normoactive bowel sounds. Rectal: Deferred. EXTREMITIES: No cyanosis, clubbing or edema. RLE in brace Result Diagram: 10/28/18 0734 10/28/18 0734 Results 24hrs Laboratory Tests Test 10/27/18 18:43 10/27/18 20:37 10/28/18 05:00 10/28/18 07:34 Bedside Glucose 94 71 Blood Gas Blood arterial Specimen Source Arterial Blood 10/28/2018 4:40:1 Date Drawn 9 AM Arterial Blood pH 7.403 (Temp corrected) Arterial Blood 39.7 pCO2 (Temp correct) Arterial Blood 105.4 H pO2 (Temp corrected) Arterial Blood 24.2 HCO3 Arterial Blood -0.5 Base Excess Arterial Blood 97.9 Oxygen Saturation Maicol Test ACCEPTAB Arterial Blood Right Radial Gas Puncture Site Arterial 0.8 Blood Carboxyhemo globin Arterial Blood 0.3 Methemoglobin Blood Gas A-a O2 32.9 H Differential Oxyhemoglobin 96.8 Percent Blood Gas 37.0 Temperature Blood Gas NASAL CANNULA Modality FiO2 26.0 Blood Gas LW Notified Whom Blood Gas 10/28/2018 4:51:1 Notified Time 5 AM White Blood Count 5.8 # Red Blood Count 3.17 L Hemoglobin 9.4 L Hematocrit 30.0 L Mean Corpuscular 94.6 Volume Mean Corpuscular 29.7 Hemoglobin Mean Corpuscular 31.3 L Hemoglobin Concen t Red Cell 16.3 H Distribution Width Platelet Count 206 Mean Platelet 9.9 Volume Immature 0.200 Granulocytes % Neutrophils % 79.4 H Lymphocytes % 6.0 L Monocytes % 8.9 Eosinophils % 4.6 Basophils % 0.9 Nucleated Red 0.0 Blood Cells % Immature 0.010 Granulocytes # Neutrophils # 4.6 Lymphocytes # 0.4 L Monocytes # 0.5 Eosinophils # 0.3 Basophils # 0.1 Nucleated Red 0.0 Blood Cells # Sodium Level 141 Potassium Level 3.9 Chloride Level 103 Carbon Dioxide 23 Level Anion Gap 15 H Blood Urea 14 Nitrogen Creatinine 3.92 H Est Glomerular 14 L Filtrat Rate mL/min Glucose Level 203 # Calcium Level 9.5 Test 10/28/18 08:07 10/28/18 10:10 10/28/18 12:04 Bedside Glucose 229 H 242 H 177 Exam/Review of Systems Exam Vitals Vital Signs Date Temp Pulse Resp B/P (MAP) Pulse Ox O2 O2 Flow FiO2 Time Delivery Rate 10/28/18 87 12:11 10/28/18 98.2 18 188/81 93 11:39 (116) 10/28/18 Nasal 04:19 Cannula 10/28/18 1.5 04:00 Intake and Output 10/27/18 10/27/18 10/28/18 1515:00 23:00 07:00 IntakeIntake Total 800 ml 504 ml 454 ml OutputOutput Total 1500 ml BalanceBalance -700 ml 504 ml 454 ml Results Results 24hrs Laboratory Tests Test 10/27/18 18:43 10/27/18 20:37 10/28/18 05:00 10/28/18 07:34 Bedside Glucose 94 71 Blood Gas Blood arterial Specimen Source Arterial Blood 10/28/2018 4:40:1 Date Drawn 9 AM Arterial Blood pH 7.403 (Temp corrected) Arterial Blood 39.7 pCO2 (Temp correct) Arterial Blood 105.4 H pO2 (Temp corrected) Arterial Blood 24.2 HCO3 Arterial Blood -0.5 Base Excess Arterial Blood 97.9 Oxygen Saturation Maicol Test ACCEPTAB Arterial Blood Right Radial Gas Puncture Site Arterial 0.8 Blood Carboxyhemo globin Arterial Blood 0.3 Methemoglobin Blood Gas A-a O2 32.9 H Differential Oxyhemoglobin 96.8 Percent Blood Gas 37.0 Temperature Blood Gas NASAL CANNULA Modality FiO2 26.0 Blood Gas LW Notified Whom Blood Gas 10/28/2018 4:51:1 Notified Time 5 AM White Blood Count 5.8 # Red Blood Count 3.17 L Hemoglobin 9.4 L Hematocrit 30.0 L Mean Corpuscular 94.6 Volume Mean Corpuscular 29.7 Hemoglobin Mean Corpuscular 31.3 L Hemoglobin Concen t Red Cell 16.3 H Distribution Width Platelet Count 206 Mean Platelet 9.9 Volume Immature 0.200 Granulocytes % Neutrophils % 79.4 H Lymphocytes % 6.0 L Monocytes % 8.9 Eosinophils % 4.6 Basophils % 0.9 Nucleated Red 0.0 Blood Cells % Immature 0.010 Granulocytes # Neutrophils # 4.6 Lymphocytes # 0.4 L Monocytes # 0.5 Eosinophils # 0.3 Basophils # 0.1 Nucleated Red 0.0 Blood Cells # Sodium Level 141 Potassium Level 3.9 Chloride Level 103 Carbon Dioxide 23 Level Anion Gap 15 H Blood Urea 14 Nitrogen Creatinine 3.92 H Est Glomerular 14 L Filtrat Rate mL/min Glucose Level 203 # Calcium Level 9.5 Test 10/28/18 08:07 10/28/18 10:10 10/28/18 12:04 Bedside Glucose 229 H 242 H 177 Medications Medication Current Medications Nitroglycerin (Nitroglycerin (Sl Tab) 0.4 Mg) 1 tab Q5M PRN SL CHEST PAIN Last administered on 10/20/18at 12:28; Admin Dose 1 TAB; Start 10/20/18 at 00:00 Acetaminophen (Tylenol Liquid) 650 mg Q6H PRN PO PAIN LEVEL 1-3 OR FEVER; St art 10/20/18 at 00:00 Docusate Sodium (Colace) 100 mg Q12H PRN PO CONSTIPATION; Start 10/20/18 at 00 :00 Bisacodyl (Dulcolax) 5 mg DAILY PRN PO CONSTIPATION; Start 10/20/18 at 00:00 Clonidine HCl (Catapres-Tts 3 Patch) 2 patch Q7D TRANSDERM Last administered on 10/28/18at 08:35; Admin Dose 2 PATCH; Start 10/21/18 at 09:00 Diagnostic Test (Pha) (Accu-Chek) 1 ea 02 XX Last administered on 10/24/18at 01:06; Admin Dose 1 EA; Start 10/21/18 at 02:00 Miscellaneous Information 1 ea NOTE XX ; Start 10/20/18 at 10:30 Glucose (Glutose) 15 gm Q15M PRN PO DECREASED GLUCOSE; Start 10/20/18 at 10:30 Glucose (Glutose) 22.5 gm Q15M PRN PO DECREASED GLUCOSE Last administered on 10/20/18at 17:16; Admin Dose 22.5 GM; Start 10/20/18 at 10:30 Dextrose (D50w Syringe) 25 ml Q15M PRN IV DECREASED GLUCOSE Last administered on 10/20/18at 17:34; Admin Dose 25 ML; Start 10/20/18 at 10:30 Dextrose (D50w Syringe) 50 ml Q15M PRN IV DECREASED GLUCOSE; Start 10/20/18 at 10:30 Glucagon (Glucagen) 1 mg Q15M PRN IM DECREASED GLUCOSE; Start 10/20/18 at 10:30 Glucose (Glutose) 15 gm Q15M PRN BUCCAL DECREASED GLUCOSE; Start 10/20/18 at 10:30 Heparin Sodium (Porcine) (Heparin (1000 Units/ml)) 3,700 unit AFTER DIALYSIS CATHETER Last administered on 10/27/18at 11:06; Admin Dose 3,700 UNIT; Start 10/21/18 at 08:00 Trimethobenzamide HCl (Tigan) 200 mg Q6H PRN IM NAUSEA AND/OR VOMITING Last administered on 10/27/18at 17:21; Admin Dose 200 MG; Start 10/21/18 at 13:00 Calcium Carbonate (Ca Carbonate) 750 mg Q2H PRN PO GI; Start 10/21/18 at 15:00 Clonidine (Catapres) 0.4 mg BID PO Last administered on 10/28/18 08:33; Admin Dose 0.4 MG; Start 10/21/18 at 14:00 Labetalol HCl (Normodyne) 1,200 mg BID PO Last administered on 10/28/18 08:34; Admin Dose 1,200 MG; Start 10/21/18 at 14:00 Loperamide HCl (Imodium Cap) 2 mg TID PRN PO DIARRHEA Last administered on 10/26/18 00:21; Admin Dose 2 MG; Start 10/21/18 at 14:00 Pantoprazole (Protonix Tab) 40 mg BID PO ; Start 10/21/18 at 14:00; Status Hold Ondansetron HCl 8 mg/Sodium Chloride 54 ml @ 216 mls/hr Q4H PRN IV NAUSEA AND/OR VOMITING Last administered on 10/28/18 13:26; Admin Dose 216 MLS/HR; Start 10/21/18 at 14:30 Insulin Aspart (Novolog Insulin Pen) NOVOLOG *CUSTOM* ALGORITHM AC MEALS AND BEDTIME SC Last administered on 10/28/18 10:21; Admin Dose 1 UNIT; Start 10/21/18 at 21:00 Al Hydrox/Mg Hydrox/Simethicone (Mag-Al Plus) 30 ml Q6H PRN PO GASTROINTESTINAL UPSET; Start 10/22/18 at 01:30 Epoetin Vic-epbx (RETACRIT(esrd)) 10,000 unit MoWeFr@1700 SC Last administered on 10/25/18 18:39; Admin Dose 10,000 UNIT; Start 10/23/18 at 17:00 Enalaprilat (Vasotec Iv) 1.25 mg Q6H PRN IV BLOOD PRESSURE SUPPORT; Start 10/22/18 at 11:00; Status Hold Pantoprazole (Protonix Iv) 40 mg BID@06,18 IV Last administered on 10/28/18 06:07; Admin Dose 40 MG; Start 10/22/18 at 11:00 Levalbuterol (Xopenex Neb) 0.63 mg Q4H RESP THERAPY PRN HHN WHEEZING; Start 10/22/18 at 11:00 Methylnaltrexone [place] (Relistor) 12 mg Q48H SC Last administered on at 15:56; Admin Dose 12 MG; Start 10/22/18 at 15:30 Hydralazine HCl (Apresoline) 100 mg TID PO Last administered on 10/28/18 13:17; Admin Dose 100 MG; Start 10/25/18 at 09:00 Labetalol HCl (Labetalol) 20 mg Q4H PRN IV ELEVATED BLOOD PRESSURE Last administered on 10/28/18 11:04; Admin Dose 20 MG; Start 10/25/18 at 15:00 Hydralazine HCl (Apresoline) 20 mg Q4H PRN IV SYS BP > 150 Last administered on 10/28/18 04:17; Admin Dose 20 MG; Start 10/25/18 at 11:30 Insulin Aspart (Novolog Insulin Pen) 4 unit WITH MEALS SC Last administered on 10/28/18 12:18; Admin Dose 4 UNIT; Start 10/25/18 at 17:55 Insulin Glargine (Lantus) 12 units DAILY@1000 SC Last administered on 10/28/18 10:21; Admin Dose 12 UNITS; Start 10/26/18 at 10:00 Hydromorphone HCl (Dilaudid) 1 mg Q3H PRN IV BREAKTHROUGH PAIN Last administered on 10/28/18 12:05; Admin Dose 1 MG; Start 10/25/18 at 15:30 Sucralfate (Carafate) 1 gm QID PO Last administered on 10/28/18 13:17; Admin Dose 1 GM; Start 10/25/18 at 17:00 Hyoscyamine (Levsin (Sl)) 0.125 mg Q8 PO Last administered on 10/28/18 13:20; Admin Dose 0.125 MG; Start 10/25/18 at 16:00 Diphenhydramine HCl (Benadryl) 50 mg PRN PRN IV ITCHING Last administered on 10/26/18 21:04; Admin Dose 50 MG; Start 10/25/18 at 17:00 Losartan Potassium (Cozaar) 100 mg DAILY PO Last administered on 10/28/18 08:34; Admin Dose 100 MG; Start 10/27/18 at 09:00 Spironolactone (Aldactone) 50 mg BID DIURETICS PO Last administered on 10/28/18 06:07; Admin Dose 50 MG; Start 10/26/18 at 18:00 Diphenhydramine HCl (Benadryl) 50 mg Q6H PRN PO ITCHING; Start 10/27/18 at 01 :30 Diphenhydramine HCl (Benadryl) 25 mg Q4H PRN IV ITCHING Last administered on 10/28/18at 11:01; Admin Dose 25 MG; Start 10/28/18 at 13:00 Hydromorphone HCl (Dilaudid) 4 mg Q4H PRN PO SEVERE PAIN LEVEL 7-10 Last administered on 10/28/18at 11:33; Admin Dose 4 MG; Start 10/28/18 at 11:30 KAYLA BARILLAS Oct 28, 2018 15:03
[2018-10-28] MEDS: METHYLNALTREXONE 12 MG/0.6 ML VIAL SC SCH (15:10)
--- NOTE | 2018-10-28 17:41 | PN ---
Date/Time of Note Date/Time of Note DATE: 10/28/18 TIME: 17:38 Assessment/Plan VTE Prophylaxis Risk score (from Nsg)>0 risk: 11 SCD applied (from Nsg): No SCD contraindicated: other (no) Pharmacological prophylaxis: heparin Lines/Catheters IV Catheter Type (from Nrsg): Mid Line Urinary Cath still in place: No Assessment/Plan Assessment/Plan 28 yo woman with type I diabetes, ESRD on MWF dialysis, diabetic gastroparesis and multiple allergies presents with R tib/fib fracture. #Type I diabetes-sugars in the high normal range. -Continue current insulin regimen, monitor sugars, follow endocrinology recommendations #Nausea/vomiting: Slowly improving the last few days, but still present, has been on as needed Tigan and as needed higher doses of Zofran, likely secondary to opiate withdrawal versus diabetic gastroparesis- The patient reports several weeks of nausea and PO intolerance attributed to diabetic gastroparesis -Continue Zofran and Tigan antiemetics. # HTN: Appears to have been resolved now for the last 24 hours, before that had been present for the last few days despite multiple p.o. high doses of blood pressure medications and PRN IV blood pressure medicines (earlier she did require nicardipine drip in the ICU 5 days ago). Again, in the last 24 hours, blood pressure as mentioned above more improved systolic 150-160. -Continue current dosages of labetalol, clonidine, and spironolactone to 50 p.o. twice daily, cautiously continue Cozaar 100 mg daily, and hydralazine p.o. 100 mg 3 times daily -Continue 20 mg hydralazine as needed IV, as well as as increased to 20 mg IV labetalol as needed #ESRD- Patient is anuric, normally gets dialysis 3 times a week as an outpatient - Dr. Spear consulted for routine dialysis #Right tib/fib fracture-orthopedics Dr. Babcock consulted -recommended for long leg brace with a dial lock - now in place. -For now keep limb immobile-continue leg brace that is now in place, ordered by orthopedic surgery team - Transition to PO opioid analgesics - PT, ARU evaluation. #Mid back pain- Associated with fall, also with palpable tenderness and slight deformity of spine- No peripheral neuro findings concerning for cord compression or cauda equina -Monitor, continue PT -Follow-up further recommendations from pain management consult DVT: None GI: PPI IV twice daily Result Diagram: 10/28/18 0734 10/28/18 0734 Subjective 24 Hr Interval Summary Free Text/Dictation No acute overnight events. Patient reports that she wants to go home. However still requiring IV dilaudid and has great difficulty walking even with PT. Exam/Review of Systems Exam Vitals Vital Signs Date Temp Pulse Resp B/P (MAP) Pulse Ox O2 O2 Flow FiO2 Time Delivery Rate 10/28/18 82 16:09 10/28/18 98.0 20 188/74 94 15:33 (112) 10/28/18 Nasal 04:19 Cannula 10/28/18 1.5 04:00 Intake and Output 10/27/18 10/27/18 10/28/18 1515:00 23:00 07:00 IntakeIntake Total 800 ml 504 ml 454 ml OutputOutput Total 1500 ml BalanceBalance -700 ml 504 ml 454 ml Exam General: lying in bed, answering questions appropriately HEENT: Atraumatic, normocephalic. Moist mucous membranes, clear oropharynx Neck: Supple with full range of motion. No rigidity or meningismus Chest: Right Tremayne cath Lungs: Clear to auscultation bilaterally no crackles rales or wheezing Heart: Normal S1-S2, Regular rhythm and rate. No murmur, S3, or S4 Abdomen: Soft , nontender, nondistended , bowel sounds are present. No guarding no rebound tenderness Extremities: Right lower extremity significant discoloration of the anterior rose, warm to touch, distal pulses palpable, no cyanosis noted Results Results 24hrs Laboratory Tests Test 10/27/18 18:43 10/27/18 20:37 10/28/18 05:00 10/28/18 07:34 Bedside Glucose 94 71 Blood Gas Blood arterial Specimen Source Arterial Blood 10/28/2018 4:40:1 Date Drawn 9 AM Arterial Blood pH 7.403 (Temp corrected) Arterial Blood 39.7 pCO2 (Temp correct) Arterial Blood 105.4 H pO2 (Temp corrected) Arterial Blood 24.2 HCO3 Arterial Blood -0.5 Base Excess Arterial Blood 97.9 Oxygen Saturation Maicol Test ACCEPTAB Arterial Blood Right Radial Gas Puncture Site Arterial 0.8 Blood Carboxyhemo globin Arterial Blood 0.3 Methemoglobin Blood Gas A-a O2 32.9 H Differential Oxyhemoglobin 96.8 Percent Blood Gas 37.0 Temperature Blood Gas NASAL CANNULA Modality FiO2 26.0 Blood Gas LW Notified Whom Blood Gas 10/28/2018 4:51:1 Notified Time 5 AM White Blood Count 5.8 # Red Blood Count 3.17 L Hemoglobin 9.4 L Hematocrit 30.0 L Mean Corpuscular 94.6 Volume Mean Corpuscular 29.7 Hemoglobin Mean Corpuscular 31.3 L Hemoglobin Concen t Red Cell 16.3 H Distribution Width Platelet Count 206 Mean Platelet 9.9 Volume Immature 0.200 Granulocytes % Neutrophils % 79.4 H Lymphocytes % 6.0 L Monocytes % 8.9 Eosinophils % 4.6 Basophils % 0.9 Nucleated Red 0.0 Blood Cells % Immature 0.010 Granulocytes # Neutrophils # 4.6 Lymphocytes # 0.4 L Monocytes # 0.5 Eosinophils # 0.3 Basophils # 0.1 Nucleated Red 0.0 Blood Cells # Sodium Level 141 Potassium Level 3.9 Chloride Level 103 Carbon Dioxide 23 Level Anion Gap 15 H Blood Urea 14 Nitrogen Creatinine 3.92 H Est Glomerular 14 L Filtrat Rate mL/min Glucose Level 203 # Calcium Level 9.5 Test 10/28/18 08:07 10/28/18 10:10 10/28/18 12:04 10/28/18 17:28 Bedside Glucose 229 H 242 H 177 103 Medications Medication Current Medications Nitroglycerin (Nitroglycerin (Sl Tab) 0.4 Mg) 1 tab Q5M PRN SL CHEST PAIN Last administered on 10/20/18at 12:28; Admin Dose 1 TAB; Start 10/20/18 at 00:00 Acetaminophen (Tylenol Liquid) 650 mg Q6H PRN PO PAIN LEVEL 1-3 OR FEVER; Start 10/20/18 at 00:00 Docusate Sodium (Colace) 100 mg Q12H PRN PO CONSTIPATION; Start 10/20/18 at 00:00 Bisacodyl (Dulcolax) 5 mg DAILY PRN PO CONSTIPATION; Start 10/20/18 at 00:00 Clonidine HCl (Catapres-Tts 3 Patch) 2 patch Q7D TRANSDERM Last administered on 10/28/18at 08:35; Admin Dose 2 PATCH; Start 10/21/18 at 09:00 Diagnostic Test (Pha) (Accu-Chek) 1 ea 02 XX Last administered on 10/24/18at 01:06; Admin Dose 1 EA; Start 10/21/18 at 02:00 Miscellaneous Information 1 ea NOTE XX ; Start 10/20/18 at 10:30 Glucose (Glutose) 15 gm Q15M PRN PO DECREASED GLUCOSE; Start 10/20/18 at 10:30 Glucose (Glutose) 22.5 gm Q15M PRN PO DECREASED GLUCOSE Last administered on 10/20/18at 17:16; Admin Dose 22.5 GM; Start 10/20/18 at 10:30 Dextrose (D50w Syringe) 25 ml Q15M PRN IV DECREASED GLUCOSE Last administered on 10/20/18at 17:34; Admin Dose 25 ML; Start 10/20/18 at 10:30 Dextrose (D50w Syringe) 50 ml Q15M PRN IV DECREASED GLUCOSE; Start 10/20/18 at 10:30 Glucagon (Glucagen) 1 mg Q15M PRN IM DECREASED GLUCOSE; Start 10/20/18 at 10:30 Glucose (Glutose) 15 gm Q15M PRN BUCCAL DECREASED GLUCOSE; Start 10/20/18 at 10:30 Heparin Sodium (Porcine) (Heparin (1000 Units/ml)) 3,700 unit AFTER DIALYSIS CATHETER Last administered on 10/27/18at 11:06; Admin Dose 3,700 UNIT; Start 10/21/18 at 08:00 Trimethobenzamide HCl (Tigan) 200 mg Q6H PRN IM NAUSEA AND/OR VOMITING Last administered on 10/27/18at 17:21; Admin Dose 200 MG; Start 10/21/18 at 13:00 Calcium Carbonate (Ca Carbonate) 750 mg Q2H PRN PO GI; Start 10/21/18 at 15:00 Clonidine (Catapres) 0.4 mg BID PO Last administered on 10/28/18 08:33; Admin Dose 0.4 MG; Start 10/21/18 at 14:00 Labetalol HCl (Normodyne) 1,200 mg BID PO Last administered on 10/28/18at 08:34; Admin Dose 1,200 MG; Start 10/21/18 at 14:00 Loperamide HCl (Imodium Cap) 2 mg TID PRN PO DIARRHEA Last administered on 10/26/18at 00:21; Admin Dose 2 MG; Start 10/21/18 at 14:00 Pantoprazole (Protonix Tab) 40 mg BID PO ; Start 10/21/18 at 14:00; Status Hold Ondansetron HCl 8 mg/Sodium Chloride 54 ml @ 216 mls/hr Q4H PRN IV NAUSEA AND/OR VOMITING Last administered on 10/28/18 13:26; Admin Dose 216 MLS/HR; St art 10/21/18 at 14:30 Insulin Aspart (Novolog Insulin Pen) NOVOLOG *CUSTOM* ALGORITHM AC MEALS AND B EDTIME SC Last administered on 10/28/18 10:21; Admin Dose 1 UNIT; Start 10/21/18 at 21:00 Al Hydrox/Mg Hydrox/Simethicone (Mag-Al Plus) 30 ml Q6H PRN PO GASTROINTESTINAL UPSET; Start 10/22/18 at 01:30 Epoetin Vic-epbx (RETACRIT(esrd)) 10,000 unit MoWeFr@1700 SC Last administered on 10/25/18at 18:39; Admin Dose 10,000 UNIT; Start 10/23/18 at 17:00 Enalaprilat (Vasotec Iv) 1.25 mg Q6H PRN IV BLOOD PRESSURE SUPPORT; Start 10/22/18 at 11:00; Status Hold Pantoprazole (Protonix Iv) 40 mg BID@06,18 IV Last administered on 10/28/18 06:07; Admin Dose 40 MG; Start 10/22/18 at 11:00 Levalbuterol (Xopenex Neb) 0.63 mg Q4H RESP THERAPY PRN HHN WHEEZING; Start 10/22/18 at 11:00 Methylnaltrexone [place] (Relistor) 12 mg Q48H SC Last administered on 10/28/18at 15:10; Admin Dose 12 MG; Start 10/22/18 at 15:30 Hydralazine HCl (Apresoline) 100 mg TID PO Last administered on 10/28/18 13:17; Admin Dose 100 MG; Start 10/25/18 at 09:00 Labetalol HCl (Labetalol) 20 mg Q4H PRN IV ELEVATED BLOOD PRESSURE Last administered on 10/28/18 11:04; Admin Dose 20 MG; Start 10/25/18 at 15:00 Hydralazine HCl (Apresoline) 20 mg Q4H PRN IV SYS BP > 150 Last administered on 10/28/18 04:17; Admin Dose 20 MG; Start 10/25/18 at 11:30 Insulin Aspart (Novolog Insulin Pen) 4 unit WITH MEALS SC Last administered on 10/28/18 12:18; Admin Dose 4 UNIT; Start 10/25/18 at 17:55 Insulin Glargine (Lantus) 12 units DAILY@1000 SC Last administered on 10/28/18 10:21; Admin Dose 12 UNITS; Start 10/26/18 at 10:00 Hydromorphone HCl (Dilaudid) 1 mg Q3H PRN IV BREAKTHROUGH PAIN Last administered on 10/28/18 15:11; Admin Dose 1 MG; Start 10/25/18 at 15:30 Sucralfate (Carafate) 1 gm QID PO Last administered on 10/28/18 13:17; Admin Dose 1 GM; Start 10/25/18 at 17:00 Hyoscyamine (Levsin (Sl)) 0.125 mg Q8 PO Last administered on 10/28/18 13:20; Admin Dose 0.125 MG; Start 10/25/18 at 16:00 Diphenhydramine HCl (Benadryl) 50 mg PRN PRN IV ITCHING Last administered on 10/28/18 15:10; Admin Dose 50 MG; Start 10/25/18 at 17:00 Losartan Potassium (Cozaar) 100 mg DAILY PO Last administered on 10/28/18 08:34; Admin Dose 100 MG; Start 10/27/18 at 09:00 Spironolactone (Aldactone) 50 mg BID DIURETICS PO Last administered on 10/28/18 06:07; Admin Dose 50 MG; Start 10/26/18 at 18:00 Diphenhydramine HCl (Benadryl) 50 mg Q6H PRN PO ITCHING; Start 10/27/18 at 01:30 Diphenhydramine HCl (Benadryl) 25 mg Q4H PRN IV ITCHING Last administered on 10/28/18 11:01; Admin Dose 25 MG; Start 10/28/18 at 13:00 Hydromorphone HCl (Dilaudid) 4 mg Q4H PRN PO SEVERE PAIN LEVEL 7-10 Last administered on 4/29/19at 11:33; Admin Dose 4 MG; Start 10/28/18 at 11:30 VINICIUS YAÑEZ MD Oct 28, 2018 17:41
[2018-10-28] MEDS: TRIMETHOBENZAMIDE 100 MG/ML VIAL IM PRN (18:40)
[2018-10-28] MEDS ORDERED: INSULIN GLARGINE [LANTus] (100 UNITS/ML) SYG SC SCH (21:00)
[2018-10-28] MEDS: EPOETIN ALFA-EPBX (ESRD) 10,000 UNIT/ML VIAL SC SCH (21:31)
--- NOTE | 2018-10-28 21:52 | CONS ---
Assessment/Plan Assessment/Plan Problems: (1) Type 2 diabetes mellitus with diabetic chronic kidney disease Status: Chronic Comment: BG values repeatedly elevated on fasting but trend down towards hypoglycemic by the end of the day. This would suggest: 1. the basal insulin does not last the full 24 hours, despite the ESRD, and, 2. the basal insulin dose is too high for this pt. Will try splitting the dose of lantus and lowering it from 12 units to 4 units q12. Cont. Novolog 5 units qac and monitor glucose values. May have to lower Novolog dose if glucose values continue to trend down throughout the day. 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 Chronic kidney disease stage: on chronic dialysis Qualified Codes: E11.22 - Type 2 diabetes mellitus with diabetic chronic kidney disease; N18.6 - End stage renal disease; Z79.4 - assisted (current) use of insulin; Z99.2 - Dependence on renal dialysis Consultation Date/Type/Reason Admit Date/Time Oct 19, 2018 at 23:42 Initial Consult Date 10/20/2018 Type of Consult Endocrinology Reason for Consultation T2DM management Requesting Provider: MARGA CARABLALO Date/Time of Note DATE: 10/28/18 TIME: 21:47 24 HR Interval Summary Constitutional: no complaints Detailed Summary Respiratory: no complaints Cardiovascular: no complaints Gastrointestinal: no complaints Genitourinary: no complaints Musculoskeletal: no complaints Neurologic: no complaints Exam/Review of Systems Exam Vitals VS - Last 72 Hours, by Label Date Temp Pulse Resp B/P (MAP) Pulse Ox O2 O2 Flow FiO2 Time Delivery Rate 10/28/18 80 20:00 10/28/18 98.7 80 18 184/107 96 19:57 (132) 10/28/18 82 16:09 10/28/18 98.0 82 20 188/74 94 15:33 (112) 10/28/18 87 12:11 10/28/18 98.2 87 18 188/81 93 11:39 (116) 10/28/18 87 08:36 10/28/18 98.4 86 18 197/79 100 07:59 (118) 10/28/18 87 141/71 05:00 (94) 10/28/18 98.5 85 18 203/93 98 Nasal 04:19 (129) Cannula 10/28/18 86 04:00 10/28/18 1.5 04:00 10/28/18 86 04:00 10/28/18 98.6 88 18 141/83 94 00:00 (102) 10/28/18 86 00:00 10/27/18 87 20:00 10/27/18 97.8 86 18 147/66 99 20:00 (93) 10/27/18 98.3 85 20 187/75 91 16:01 (112) 10/27/18 83 16:00 10/27/18 87 12:00 10/27/18 98.0 85 20 145/76 99 11:46 (99) 10/27/18 91 10:50 10/27/18 100 10:45 10/27/18 109 10:30 10/27/18 84 10:15 10/27/18 85 10:00 10/27/18 84 09:45 10/27/18 85 09:30 10/27/18 83 20 161/72 99 Room Air 2.0 09:29 (101) Nasal Cannula 10/27/18 85 09:15 10/27/18 88 09:00 10/27/18 89 08:45 10/27/18 83 08:00 10/27/18 98.0 83 20 161/72 99 07:59 (101) 10/27/18 79 04:00 10/27/18 98.2 79 18 138/63 99 04:00 (88) 10/27/18 80 00:00 10/27/18 97.8 77 19 142/63 95 00:00 (89) 10/26/18 80 20:00 10/26/18 98.5 78 18 132/63 95 20:00 (86) 10/26/18 18 138/63 17:23 (88) 10/26/18 84 17 159/100 98 Room Air 16:57 (119) 10/26/18 77 16:45 10/26/18 78 16:30 10/26/18 77 16:15 10/26/18 78 16:00 10/26/18 78 16:00 10/26/18 79 15:45 10/26/18 79 15:30 10/26/18 79 15:15 10/26/18 81 15:00 10/26/18 80 14:45 10/26/18 80 14:30 10/26/18 83 12:00 10/26/18 97.6 86 20 140/63 97 Nasal 11:13 (88) Cannula 10/26/18 87 08:00 10/26/18 98.6 86 20 140/63 99 Nasal 07:18 (88) Cannula 10/26/18 88 149/66 05:09 (93) 10/26/18 85 04:00 10/26/18 98.3 84 18 242/116 98 03:58 (158) 10/26/18 87 151/69 02:39 (96) 10/26/18 94 00:00 10/25/18 98.1 90 17 198/98 97 23:54 (131) 10/25/18 90 23:13 10/25/18 87 23:00 10/25/18 86 22:45 10/25/18 85 22:30 10/25/18 80 22:15 10/25/18 84 22:00 Vital Signs Date Temp Pulse Resp B/P (MAP) Pulse Ox O2 O2 Flow FiO2 Time Delivery Rate 10/28/18 80 20:00 10/28/18 98.7 18 184/107 96 19:57 (132) 10/28/18 Nasal 04:19 Cannula 10/28/18 1.5 04:00 Intake and Output 10/27/18 10/27/18 10/28/18 1414:59 22:59 06:59 IntakeIntake Total 800 ml 504 ml 454 ml OutputOutput Total 1500 ml BalanceBalance -700 ml 504 ml 454 ml Constitutional: alert, oriented, frail Psych: depression Respiratory: clear to auscultation, normal air movement Cardiovascular: regular rate and rhythm; No edema, No murmurs/extra sounds, No rub Gastrointestinal: soft, nl liver, spleen, bowel sounds, tender (diffusely TTP); No non-tender, No mass, No rebound or guarding Musculoskeletal: nl extremities to inspection Extremities: No cyanosis, No clubbing, No edema Neurological: PULMONARY NURSE PRACTITIONER II-XII intact, nl mental status, nl speech, nl strength Additional Comments Bedside Glucose - 72 Hours Test 10/26/18 09:09 10/26/18 12:31 10/26/18 17:25 10/26/18 20:38 Bedside 382 224 142 195 Glucose mg/dL (70-220) mg/dL (70-220) mg/dL (70-220) mg/dL (70-220) H H Test 10/27/18 08:15 10/27/18 11:24 10/27/18 18:43 10/27/18 20:37 Bedside 369 164 94 71 Glucose mg/dL (70-220) mg/dL (70-220) mg/dL (70-220) mg/dL (70-220) H Test 10/28/18 08:07 10/28/18 10:10 10/28/18 12:04 10/28/18 17:28 Bedside 229 242 177 103 Glucose mg/dL (70-220) mg/dL (70-220) mg/dL (70-220) mg/dL (70-220) H H Test 10/28/18 19:38 10/28/18 20:30 10/28/18 21:24 Bedside 41 150 85 Glucose mg/dL (70-220) mg/dL (70-220) mg/dL (70-220) *L Results Result Diagram: 10/28/18 0734 10/28/18 0734 Results 24hrs Laboratory Tests Test 10/28/18 05:00 10/28/18 07:34 10/28/18 08:07 10/28/18 10:10 Blood Gas Blood arterial Specimen Source Arterial Blood 10/28/2018 4:40:1 Date Drawn 9 AM Arterial Blood pH 7.403 (Temp corrected) Arterial Blood 39.7 pCO2 (Temp correct) Arterial Blood 105.4 H pO2 (Temp corrected) Arterial Blood 24.2 HCO3 Arterial Blood -0.5 Base Excess Arterial Blood 97.9 Oxygen Saturation Maicol Test ACCEPTAB Arterial Blood Right Radial Gas Puncture Site Arterial 0.8 Blood Carboxyhemo globin Arterial Blood 0.3 Methemoglobin Blood Gas A-a O2 32.9 H Differential Oxyhemoglobin 96.8 Percent Blood Gas 37.0 Temperature Blood Gas NASAL CANNULA Modality FiO2 26.0 Blood Gas LW Notified Whom Blood Gas 10/28/2018 4:51:1 Notified Time 5 AM White Blood Count 5.8 # Red Blood Count 3.17 L Hemoglobin 9.4 L Hematocrit 30.0 L Mean Corpuscular 94.6 Volume Mean Corpuscular 29.7 Hemoglobin Mean Corpuscular 31.3 L Hemoglobin Concen t Red Cell 16.3 H Distribution Width Platelet Count 206 Mean Platelet 9.9 Volume Immature 0.200 Granulocytes % Neutrophils % 79.4 H Lymphocytes % 6.0 L Monocytes % 8.9 Eosinophils % 4.6 Basophils % 0.9 Nucleated Red 0.0 Blood Cells % Immature 0.010 Granulocytes # Neutrophils # 4.6 Lymphocytes # 0.4 L Monocytes # 0.5 Eosinophils # 0.3 Basophils # 0.1 Nucleated Red 0.0 Blood Cells # Sodium Level 141 Potassium Level 3.9 Chloride Level 103 Carbon Dioxide 23 Level Anion Gap 15 H Blood Urea 14 Nitrogen Creatinine 3.92 H Est Glomerular 14 L Filtrat Rate mL/min Glucose Level 203 # Calcium Level 9.5 Bedside Glucose 229 H 242 H Test 10/28/18 12:04 10/28/18 17:28 10/28/18 19:38 10/28/18 20:30 Bedside Glucose 177 103 41 *L 150 Test 10/28/18 21:24 Bedside Glucose 85 Medications Medication Current Medications Nitroglycerin (Nitroglycerin (Sl Tab) 0.4 Mg) 1 tab Q5M PRN SL CHEST PAIN Last administered on 10/20/18at 12:28; Admin Dose 1 TAB; Start 10/20/18 at 00:00 Acetaminophen (Tylenol Liquid) 650 mg Q6H PRN PO PAIN LEVEL 1-3 OR FEVER; Start 10/20/18 at 00:00 Docusate Sodium (Colace) 100 mg Q12H PRN PO CONSTIPATION; Start 10/20/18 at 00:00 Bisacodyl (Dulcolax) 5 mg DAILY PRN PO CONSTIPATION; Start 10/20/18 at 00:00 Clonidine HCl (Catapres-Tts 3 Patch) 2 patch Q7D TRANSDERM Last administered on 10/28/18at 08:35; Admin Dose 2 PATCH; Start 10/21/18 at 09:00 Diagnostic Test (Pha) (Accu-Chek) 1 ea 02 XX Last administered on 10/24/18at 01:06; Admin Dose 1 EA; Start 10/21/18 at 02:00 Miscellaneous Information 1 ea NOTE XX ; Start 10/20/18 at 10:30 Glucose (Glutose) 15 gm Q15M PRN PO DECREASED GLUCOSE; Start 10/20/18 at 10:30 Glucose (Glutose) 22.5 gm Q15M PRN PO DECREASED GLUCOSE Last administered on 10/20/18 17:16; Admin Dose 22.5 GM; Start 10/20/18 at 10:30 Dextrose (D50w Syringe) 25 ml Q15M PRN IV DECREASED GLUCOSE Last administered on 10/20/18 17:34; Admin Dose 25 ML; Start 10/20/18 at 10:30 Dextrose (D50w Syringe) 50 ml Q15M PRN IV DECREASED GLUCOSE Last administered on 10/28/18 19:44; Admin Dose 50 ML; Start 10/20/18 at 10:30 Glucagon (Glucagen) 1 mg Q15M PRN IM DECREASED GLUCOSE; Start 10/20/18 at 10:30 Glucose (Glutose) 15 gm Q15M PRN BUCCAL DECREASED GLUCOSE; Start 10/20/18 at 10:30 Heparin Sodium (Porcine) (Heparin (1000 Units/ml)) 3,700 unit AFTER DIALYSIS CATHETER Last administered on 10/27/18 11:06; Admin Dose 3,700 UNIT; Start 10/21/18 at 08:00 Trimethobenzamide HCl (Tigan) 200 mg Q6H PRN IM NAUSEA AND/OR VOMITING Last administered on 10/28/18 18:40; Admin Dose 200 MG; Start 10/21/18 at 13:00 Calcium Carbonate (Ca Carbonate) 750 mg Q2H PRN PO GI; Start 10/21/18 at 15:00 Clonidine (Catapres) 0.4 mg BID PO Last administered on 10/28/18 20:07; Admin Dose 0.4 MG; Start 10/21/18 at 14:00 Labetalol HCl (Normodyne) 1,200 mg BID PO Last administered on 10/28/18 21:27; Admin Dose 1,200 MG; Start 10/21/18 at 14:00 Loperamide HCl (Imodium Cap) 2 mg TID PRN PO DIARRHEA Last administered on 10/26/18 00:21; Admin Dose 2 MG; Start 10/21/18 at 14:00 Pantoprazole (Protonix Tab) 40 mg BID PO ; Start 10/21/18 at 14:00; Status Hold Ondansetron HCl 8 mg/Sodium Chloride 54 ml @ 216 mls/hr Q4H PRN IV NAUSEA AND/OR VOMITING Last administered on 10/28/18 13:26; Admin Dose 216 MLS/HR; Start 10/21/18 at 14:30 Insulin Aspart (Novolog Insulin Pen) NOVOLOG *CUSTOM* ALGORITHM AC MEALS AND BEDTIME SC Last administered on 10/28/18 10:21; Admin Dose 1 UNIT; Start 10/21/18 at 21:00 Al Hydrox/Mg Hydrox/Simethicone (Mag-Al Plus) 30 ml Q6H PRN PO GASTROINTESTINAL UPSET; Start 10/22/18 at 01:30 Epoetin Vic-epbx (RETACRIT(esrd)) 10,000 unit MoWeFr@1700 SC Last administered on 10/28/18 21:31; Admin Dose 10,000 UNIT; Start 10/23/18 at 17:00 Enalaprilat (Vasotec Iv) 1.25 mg Q6H PRN IV BLOOD PRESSURE SUPPORT; Start 10/22/18 at 11:00; Status Hold Pantoprazole (Protonix Iv) 40 mg BID@06,18 IV Last administered on 10/28/18 18:40; Admin Dose 40 MG; Start 10/22/18 at 11:00 Levalbuterol (Xopenex Neb) 0.63 mg Q4H RESP THERAPY PRN HHN WHEEZING; Start 10/22/18 at 11:00 Methylnaltrexone [place] (Relistor) 12 mg Q48H SC Last administered on 10/28/18 15:10; Admin Dose 12 MG; Start 10/22/18 at 15:30 Hydralazine HCl (Apresoline) 100 mg TID PO Last administered on 10/28/18at 2 0:08; Admin Dose 100 MG; Start 10/25/18 at 09:00 Labetalol HCl (Labetalol) 20 mg Q4H PRN IV ELEVATED BLOOD PRESSURE Last administered on 10/28/18 11:04; Admin Dose 20 MG; Start 10/25/18 at 15:00 Hydralazine HCl (Apresoline) 20 mg Q4H PRN IV SYS BP > 150 Last administered on 10/28/18 04:17; Admin Dose 20 MG; Start 10/25/18 at 11:30 Insulin Aspart (Novolog Insulin Pen) 4 unit WITH MEALS SC Last administered on 10/28/18 17:42; Admin Dose 4 UNIT; Start 10/25/18 at 17:55 Hydromorphone HCl (Dilaudid) 1 mg Q3H PRN IV BREAKTHROUGH PAIN Last administered on 10/28/18 21:21; Admin Dose 1 MG; Start 10/25/18 at 15:30 Sucralfate (Carafate) 1 gm QID PO Last administered on 10/28/18 21:25; Admin Dose 1 GM; Start 10/25/18 at 17:00 Hyoscyamine (Levsin (Sl)) 0.125 mg Q8 PO Last administered on 10/28/18 21:28; Admin Dose 0.125 MG; Start 10/25/18 at 16:00 Diphenhydramine HCl (Benadryl) 50 mg PRN PRN IV ITCHING Last administered on 10/28/18 20:06; Admin Dose 50 MG; Start 10/25/18 at 17:00 Losartan Potassium (Cozaar) 100 mg DAILY PO Last administered on 10/28/18 08:34; Admin Dose 100 MG; Start 10/27/18 at 09:00 Spironolactone (Aldactone) 50 mg BID DIURETICS PO Last administered on 10/28 18:41; Admin Dose 50 MG; Start 10/26/18 at 18:00 Diphenhydramine HCl (Benadryl) 50 mg Q6H PRN PO ITCHING; Start 10/27/18 at 01:30 Diphenhydramine HCl (Benadryl) 25 mg Q4H PRN IV ITCHING Last administered on 10/28/18 11:01; Admin Dose 25 MG; Start 10/28/18 at 13:00 Hydromorphone HCl (Dilaudid) 4 mg Q4H PRN PO SEVERE PAIN LEVEL 7-10 Last administered on 10/28/18 11:33; Admin Dose 4 MG; Start 10/28/18 at 11:30 Insulin Glargine (Lantus) 6 units Q12 SC ; Start 10/28/18 at 21:00 AYLEEN HOWARD MD Oct 28, 2018 21:52
[2018-10-29] VITALS (22 sets, daily range): BP systolic 129–210; BP diastolic 50–119; PULSE 80–87; RESP 16–20
[2018-10-29] MEDS: ACCU-CHEK XX SCH (02:00)
[2018-10-29] MEDS: hydrALAzine 20 MG INJ IV PRN ×4 (02:18→19:46)
[2018-10-29] MEDS: HYDROmorphONE 1 MG/ML SYG IV PRN ×6 (03:12→18:32)
[2018-10-29] MEDS ORDERED: DIPHENHYDRAMINE 50 MG INJ IV ONE (04:30)
[2018-10-29] MEDS: ONDANSETRON INJ 8 MG in SOD CHLORIDE 0.9% 50 ML IV PRN ×2 (04:59→14:04)
--- NOTE | 2018-10-29 06:19 | PN ---
DATE: 10/28/2018 SUBJECTIVE: The patient is stable. No events overnight. OBJECTIVE: VITAL SIGNS: Blood pressure is 197/79, pulse 86, respiration 18, temperature 98.4. HEENT: Head is normocephalic. NECK: Supple. HEART: Regular rate. LUNGS: Show diminished breath sounds at the base. ABDOMEN: Soft, nontender to palpation without rebound or guarding. EXTREMITIES: Negative for clubbing, cyanosis, no edema. DERMATOLOGIC: No rashes. MUSCULOSKELETAL: No joint effusion. NEUROLOGIC: No change in exam. MEDICATIONS: The patient's medications have been reviewed. LABORATORY DATA: Has been reviewed. ASSESSMENT AND PLAN: 1. End-stage renal disease. The patient is receiving daily dialysis. We will hold dialysis today. Anticipate dialysis tomorrow. 2. Hypertensive urgency. Etiology is multifactorial secondary to endothelial dysfunction/dysregulat ion, end-stage renal disease, intravascular volume, pain. Blood pressure levels continue to fluctuat e. Continue current blood pressure regimen. Continue ultrafiltration dialysis. Adjust medications as needed. 3. Anemia. Monitor hemoglobin and hematocrit levels. Continue Epogen. 4. Mineral bone disorder, monitor calcium and phosphorus levels. 5. Opiate withdrawal. Continue medical management. 6. Right tibiofibular fracture. The patient continues to have underlying pain. Follow up with orth opedist. 7. Cellulitis. The patient has completed an antibiotic course. 8. Diabetes. Continue current insulin regimen. 9. Dyspepsia, nausea, vomiting. Continue PPI, monitor closely. Dictated By: JUJU JOHN/ALISON Conf#: [id number] DID#: [id number] CC: VERITO GARCIA MD; CHEMA LUGO MD; NAYAN WILLIS;*EndCC*
[2018-10-29] MEDS: PANTOPRAZOLE 40 MG INJ IV SCH ×2 (06:23→17:46)
[2018-10-29] MEDS: HYOSCYAMINE 0.125 MG SUBL TAB PO SCH ×2 (06:23→13:03)
[2018-10-29] MEDS: SPIRONOLACTONE 50 MG TAB PO SCH ×2 (06:23→17:46)
[2018-10-29] MEDS: INSULIN ASPART [NOVOLOG] 3 ML PEN SC SCH ×6 (08:24→21:00)
[2018-10-29] MEDS: LABETALOL 200 MG TAB PO SCH ×2 (08:26→20:54)
[2018-10-29] MEDS: LOSARTAN 50 MG TAB PO SCH (08:26)
[2018-10-29] MEDS: INSULIN GLARGINE [LANTus] (100 UNITS/ML) SYG SC SCH (08:26)
[2018-10-29] MEDS: SUCRALFATE 1 GM TAB PO SCH ×4 (08:26→20:54)
[2018-10-29] MEDS: DIPHENHYDRAMINE 50 MG INJ IV PRN ×5 (08:39→18:38)
--- NOTE | 2018-10-29 09:15 | PN ---
DATE: 10/29/2018 SUBJECTIVE: The patient is stable, no events overnight. The patient is scheduled for dialysis today . No other events noted. OBJECTIVE: VITAL SIGNS: Blood pressure is 147/83, pulse 83, temperature 98.5. HEENT: Head is normocephalic. NECK: Supple. HEART: Regular rate. LUNGS: Show diminished breath sounds at the base. ABDOMEN: Soft, nontender to palpation without rebound or guarding. EXTREMITIES: Negative for clubbing, cyanosis, no edema. DERMATOLOGIC: No rashes. MUSCULOSKELETAL: No joint effusion. NEUROLOGIC: No change in exam. MEDICATIONS: The patient's medications have been reviewed. LABORATORY DATA: Reviewed. ASSESSMENT AND PLAN: 1. End-stage renal disease. The patient is scheduled for dialysis today. We will dialyze for 3 irina rs 2k bath, calcium 2.5. 2. Hypertension. Etiology is multifactorial secondary to endothelial dysfunction, end-stage renal d isease and intravascular volume and pain. The patient's blood pressure medications have been adjuste d. Blood pressures are improving. Continue current regimen. Continue ultrafiltration with dialysis . Continue pain control. 3. Anemia. Continue to monitor hemoglobin and hematocrit levels. Continue Epogen. 4. Mineral bone disorder, monitor calcium and phosphorus levels. 5. Opiate withdrawal, improved. 6. Right tibiofibular fracture. Continue current medical management. Continue conservative care. 7. Diabetes. Continue current insulin regimen. 8. Dyspepsia, nausea and vomiting. Continue proton pump inhibitor and monitor. Dictated By: JUJU MARTINEZ DO NR/NTS Conf#: [id number] DID#: [id number] CC: VERITO GARCIA MD; VINICIUS YAÑEZ MD; CHEMA LUGO MD;*EndCC*
[2018-10-29] MEDS: TRIMETHOBENZAMIDE 100 MG/ML VIAL IM PRN ×2 (09:45→18:36)
[2018-10-29] MEDS: HEPARIN 1000 UNITS/ML 10 ML INJ CATHETER SCH (12:16)
[2018-10-29] MEDS: ARTIFICIAL TEARS 15 ML OPH BOTH EYES PRN ×2 (12:42→19:32)
--- NOTE | 2018-10-29 13:53 | PN ---
Date/Time of Note Date/Time of Note DATE: 10/29/18 TIME: 13:50 Assessment/Plan VTE Prophylaxis Risk score (from Ns)>0 risk: 11 SCD applied (from Ns): No SCD contraindicated: bilateral LE trauma Pharmacological prophylaxis: NA/contraindicated Pharm contraindication: renal impairment Lines/Catheters IV Catheter Type (from Nrsg): Mid Line Urinary Cath still in place: No Assessment/Plan Hospital Course Assessment: Persistent nausea/vomiting -R/o 2/2 reduction in pain medication vs gastroparesis vs obstruction vs other Hx of gastroparesis Type I diabetes- with hyperglycemia H/o PUD IBS - D HTN Normocytic anemia ESRD- on HD Right tib/fib fracture- followed by ortho Severe Pulmonary HTN Partially blind Plan: Continue PPI/Carafate x 4weeks- given recent findings of Patient on soft renal/diabetic diet tolerating well, with current antiemetic medication Stool for H. pylori- not detected Continue Zofran/Tigan D/c planning per hospitalist Patient seen in collaboration with Dr. augustine Subjective: Course reviewed with nursing staff Patient interviewed and examined All labs, imaging and other results reviewed Patient appears comfortable she states she is ready to go home she feels much better tolerating her diet well has some mild nausea but overall great improvement. No complaints of abdominal pain or vomiting.. PHYSICAL EXAMINATION: GENERAL: Well developed, alert & oriented x 3, no distress SKIN: Dialysis catheter. EYES: Pupils equal reactive to light, no discharge. Partially blind EARS/NOSE AND THROAT: Ears normal, nose normal NECK: Supple, no masses CHEST: Inspection within normal limits. CARDIOVASCULAR: Heart: Regular rate and rhythm RESPIRATORY: Lungs clear to auscultation GASTROINTESTINAL AND LIVER: Abdomen: Soft, Moderated epigastric tenderness, non- distended, no hernias, no masses, no organomegaly, no ascites, no guarding, no rebound tenderness, normoactive bowel sounds. Rectal: Deferred. EXTREMITIES: No cyanosis, clubbing or edema. RLE in brace Result Diagram: 10/28/18 0734 10/28/18 0734 Results 24hrs Laboratory Tests Test 10/28/18 17:28 10/28/18 19:38 10/28/18 20:30 10/28/18 21:24 Bedside Glucose 103 41 *L 150 85 Test 10/29/18 03:48 10/29/18 08:21 10/29/18 12:29 Bedside Glucose 311 H 331 H 116 Exam/Review of Systems Exam Vitals Vital Signs Date Temp Pulse Resp B/P (MAP) Pulse Ox O2 O2 Flow FiO2 Time Delivery Rate 10/29/18 82 158/70 12:38 (99) 10/29/18 20 Room Air 08:30 10/29/18 98.5 94 07:56 10/29/18 0.0 21 00:16 Intake and Output 10/28/18 10/28/18 10/29/18 1515:00 23:00 07:00 IntakeIntake Total 710 ml 214 ml BalanceBalance 710 ml 214 ml Results Results 24hrs Laboratory Tests Test 10/28/18 17:28 10/28/18 19:38 10/28/18 20:30 10/28/18 21:24 Bedside Glucose 103 41 *L 150 85 Test 10/29/18 03:48 10/29/18 08:21 10/29/18 12:29 Bedside Glucose 311 H 331 H 116 Medications Medication Current Medications Nitroglycerin (Nitroglycerin (Sl Tab) 0.4 Mg) 1 tab Q5M PRN SL CHEST PAIN Last administered on 10/20/18at 12:28; Admin Dose 1 TAB; Start 10/20/18 at 00:00 Acetaminophen (Tylenol Liquid) 650 mg Q6H PRN PO PAIN LEVEL 1-3 OR FEVER; Start 10/20/18 at 00:00 Docusate Sodium (Colace) 100 mg Q12H PRN PO CONSTIPATION; Start 10/20/18 at 00:00 Bisacodyl (Dulcolax) 5 mg DAILY PRN PO CONSTIPATION; Start 10/20/18 at 00:00 Clonidine HCl (Catapres-Tts 3 Patch) 2 patch Q7D TRANSDERM Last administered on 10/28/18at 08:35; Admin Dose 2 PATCH; Start 10/21/18 at 09:00 Diagnostic Test (Pha) (Accu-Chek) 1 ea 02 XX Last administered on 10/24/18at 01:06; Admin Dose 1 EA; Start 10/21/18 at 02:00 Miscellaneous Information 1 ea NOTE XX ; Start 10/20/18 at 10:30 Glucose (Glutose) 15 gm Q15M PRN PO DECREASED GLUCOSE; Start 10/20/18 at 10:30 Glucose (Glutose) 22.5 gm Q15M PRN PO DECREASED GLUCOSE Last administered on 10/20/18 17:16; Admin Dose 22.5 GM; Start 10/20/18 at 10:30 Dextrose (D50w Syringe) 25 ml Q15M PRN IV DECREASED GLUCOSE Last administered on 10/20/18 17:34; Admin Dose 25 ML; Start 10/20/18 at 10:30 Dextrose (D50w Syringe) 50 ml Q15M PRN IV DECREASED GLUCOSE Last administered on 10/28/18 19:44; Admin Dose 50 ML; Start 10/20/18 at 10:30 Glucagon (Glucagen) 1 mg Q15M PRN IM DECREASED GLUCOSE; Start 10/20/18 at 10:30 Glucose (Glutose) 15 gm Q15M PRN BUCCAL DECREASED GLUCOSE; Start 10/20/18 at 10:30 Heparin Sodium (Porcine) (Heparin (1000 Units/ml)) 3,700 unit AFTER DIALYSIS CATHETER Last administered on 10/29/18 12:16; Admin Dose 3,700 UNIT; Start 10/21/18 at 08:00 Trimethobenzamide HCl (Tigan) 200 mg Q6H PRN IM NAUSEA AND/OR VOMITING Last administered on 10/29/18 09:45; Admin Dose 200 MG; Start 10/21/18 at 13:00 Calcium Carbonate (Ca Carbonate) 750 mg Q2H PRN PO GI; Start 10/21/18 at 15:00 Clonidine (Catapres) 0.4 mg BID PO Last administered on 10/28/18at 20:07; Admin Dose 0.4 MG; Start 10/21/18 at 14:00 Labetalol HCl (Normodyne) 1,200 mg BID PO Last administered on 10/28/18 21:27; Admin Dose 1,200 MG; Start 10/21/18 at 14:00 Loperamide HCl (Imodium Cap) 2 mg TID PRN PO DIARRHEA Last administered on 10/26/18 00:21; Admin Dose 2 MG; Start 10/21/18 at 14:00 Pantoprazole (Protonix Tab) 40 mg BID PO ; Start 10/21/18 at 14:00; Status Hold Ondansetron HCl 8 mg/Sodium Chloride 54 ml @ 216 mls/hr Q4H PRN IV NAUSEA AND/ OR VOMITING Last administered on 10/29/18 04:59; Admin Dose 216 MLS/HR; Start 10/21/18 at 14:30 Insulin Aspart (Novolog Insulin Pen) NOVOLOG *CUSTOM* ALGORITHM AC MEALS AND BEDTIME SC Last administered on 10/29/18 08:24; Admin Dose 3 UNIT; Start 10/21/18 at 21:00 Al Hydrox/Mg Hydrox/Simethicone (Mag-Al Plus) 30 ml Q6H PRN PO GASTROINTESTINAL UPSET; Start 10/22/18 at 01:30 Epoetin Vic-epbx (RETACRIT(esrd)) 10,000 unit MoWeFr@1700 SC Last administered on 10/28/18 21:31; Admin Dose 10,000 UNIT; Start 10/23/18 at 17:00 Enalaprilat (Vasotec Iv) 1.25 mg Q6H PRN IV BLOOD PRESSURE SUPPORT; Start 10/22/18 at 11:00; Status Hold Pantoprazole (Protonix Iv) 40 mg BID@,18 IV Last administered on 10/29/18 06:23; Admin Dose 40 MG; Start 10/22/18 at 11:00 Levalbuterol (Xopenex Neb) 0.63 mg Q4H RESP THERAPY PRN HHN WHEEZING; Start 10/22/18 at 11:00 Methylnaltrexone [place] (Relistor) 12 mg Q48H SC Last administered on 10/28/18 15:10; Admin Dose 12 MG; Start 10/22/18 at 15:30 Hydralazine HCl (Apresoline) 100 mg TID PO Last administered on 10/28/18 20:08; Admin Dose 100 MG; Start 10/25/18 at 09:00 Labetalol HCl (Labetalol) 20 mg Q4H PRN IV ELEVATED BLOOD PRESSURE Last administered on 10/28/18 11:04; Admin Dose 20 MG; Start 10/25/18 at 15:00 Hydralazine HCl (Apresoline) 20 mg Q4H PRN IV SYS BP > 150 Last administered on 10/29/18 11:52; Admin Dose 20 MG; Start 10/25/18 at 11:30 Insulin Aspart (Novolog Insulin Pen) 4 unit WITH MEALS SC Last administered on 10/29/18 12:37; Admin Dose 4 UNIT; Start 10/25/18 at 17:55 Hydromorphone HCl (Dilaudid) 1 mg Q3H PRN IV BREAKTHROUGH PAIN Last administered on 10/29/18 12:18; Admin Dose 1 MG; Start 10/25/18 at 15:30 Sucralfate (Carafate) 1 gm QID PO Last administered on 10/29/18 13:03; Admin Dose 1 GM; Start 10/25/18 at 17:00 Hyoscyamine (Levsin (Sl)) 0.125 mg Q8 PO Last administered on 10/29/18 13:03; Admin Dose 0.125 MG; Start 10/25/18 at 16:00 Losartan Potassium (Cozaar) 100 mg DAILY PO Last administered on 10/28/18 08:34; Admin Dose 100 MG; Start 10/27/18 at 09:00 Spironolactone (Aldactone) 50 mg BID DIURETICS PO Last administered on 10/29/18 06:23; Admin Dose 50 MG; Start 10/26/18 at 18:00 Diphenhydramine HCl (Benadryl) 50 mg Q6H PRN PO ITCHING; Start 10/27/18 at 01:30 Diphenhydramine HCl (Benadryl) 25 mg Q4H PRN IV ITCHING Last administered on 10/29/18 12:26; Admin Dose 25 MG; Start 10/28/18 at 13:00 Hydromorphone HCl (Dilaudid) 4 mg Q4H PRN PO SEVERE PAIN LEVEL 7-10 Last administered on 10/28/18 11:33; Admin Dose 4 MG; Start 10/28/18 at 11:30 Insulin Glargine (Lantus) 4 units Q12 SC Last administered on 10/29/18 08:26; Admin Dose 4 UNITS; Start 10/28/18 at 23:00 Diphenhydramine HCl (Benadryl) 50 mg Q8 PRN IV ITCHING Last administered on 10/29/18 08:39; Admin Dose 50 MG; Start 10/29/18 at 04:30 Eye Lubricant (Artificial Tears Oph) 2 drop Q6H PRN BOTH EYES DRY EYES Last administered on 10/29/18 12:42; Admin Dose 2 DROP; Start 10/29/18 at 08:00 KAYLA BARILLAS Oct 29, 2018 13:53
--- NOTE | 2018-10-29 14:45 | CONS ---
Assessment/Plan Assessment/Plan Hospital Course (Demo Recall) 28-year-old female with longstanding uncontrolled type 1 DM diagnosed at age 6 complicated by retinopathy, neuropathy and ESRD who presented to the emergency department for evaluation of nausea and vomiting for the past few days. Endocrine on board for management of diabetes mellitus Type 1 DM -will increase Lantus to 6 units SC Q12 given morning hyperglycemia -give novolog 4 units TID after 50% of the meal is consumed given patient doesn't always eat her meal to avoid postprandial hypoglycemia -continue custom sliding scale novolog TIDAC -check FS AC and HS -will monitor FS and adjust regimen accordingly Consultation Date/Type/Reason Admit Date/Time Oct 19, 2018 at 23:42 Initial Consult Date Requesting Provider: MARGA CARABALLO Date/Time of Note DATE: 10/29/18 TIME: 14:40 24 HR Interval Summary Free Text/Dictation Patient seen and examined at bedside, PO intake is fair, she denied nausea and vomiting. Frequent fasting hyperglycemia, she does snack at bedtime but denied any carbohydrate content in her snacks. Postprandial hypoglycemia noted since she would get mealtime Novolog coverage and not actually eat or finish her meal. Exam/Review of Systems Exam Vitals Vital Signs Date Temp Pulse Resp B/P (MAP) Pulse Ox O2 O2 Flow FiO2 Time Delivery Rate 10/29/18 82 158/70 12:38 (99) 10/29/18 20 Room Air 08:30 10/29/18 98.5 94 07:56 10/29/18 0.0 21 00:16 Intake and Output 10/28/18 10/28/18 10/29/18 1414:59 22:59 06:59 IntakeIntake Total 710 ml 214 ml BalanceBalance 710 ml 214 ml Exam General: Comfortable in appearance, not in acute distress. Skin appropriate for ethnicity Eye: Extraocular movements are intact, Normal conjunctiva. HENT: Normocephalic, atraumatic. Respiratory: Respirations are non-labored, Breath sounds are equal, Symmetrical chest wall expansion. Cardiovascular: S1, S2. No murmur. No edema on left lower extremity. Gastrointestinal: Soft, Non-tender, Non-distended, Normal bowel sounds. Integumentary: Warm to touch. Cast on right lower extremity Neurologic: Alert, Oriented. Cognition and Speech: Speech clear and coherent, Functional cognition intact. Psychiatric: Cooperative, Appropriate mood & affect. Results Result Diagram: 10/28/18 0734 10/28/18 0734 Results 24hrs Laboratory Tests Test 10/28/18 17:28 10/28/18 19:38 10/28/18 20:30 10/28/18 21:24 Bedside Glucose 103 41 *L 150 85 Test 10/29/18 03:48 10/29/18 08:21 10/29/18 12:29 Bedside Glucose 311 H 331 H 116 Medications Medication Current Medications Nitroglycerin (Nitroglycerin (Sl Tab) 0.4 Mg) 1 tab Q5M PRN SL CHEST PAIN Last administered on 10/20/18at 12:28; Admin Dose 1 TAB; Start 10/20/18 at 00:00 Acetaminophen (Tylenol Liquid) 650 mg Q6H PRN PO PAIN LEVEL 1-3 OR FEVER; Start 10/20/18 at 00:00 Docusate Sodium (Colace) 100 mg Q12H PRN PO CONSTIPATION; Start 10/20/18 at 00:00 Bisacodyl (Dulcolax) 5 mg DAILY PRN PO CONSTIPATION; Start 10/20/18 at 00:00 Clonidine HCl (Catapres-Tts 3 Patch) 2 patch Q7D TRANSDERM Last administered on 10/28/18at 08:35; Admin Dose 2 PATCH; Start 10/21/18 at 09:00 Diagnostic Test (Pha) (Accu-Chek) 1 ea 02 XX Last administered on 10/24/18at 01:06; Admin Dose 1 EA; Start 10/21/18 at 02:00 Miscellaneous Information 1 ea NOTE XX ; Start 10/20/18 at 10:30 Glucose (Glutose) 15 gm Q15M PRN PO DECREASED GLUCOSE; Start 10/20/18 at 10:30 Glucose (Glutose) 22.5 gm Q15M PRN PO DECREASED GLUCOSE Last administered on 10/20/18at 17:16; Admin Dose 22.5 GM; Start 10/20/18 at 10:30 Dextrose (D50w Syringe) 25 ml Q15M PRN IV DECREASED GLUCOSE Last administered on 10/20/18at 17:34; Admin Dose 25 ML; Start 10/20/18 at 10:30 Dextrose (D50w Syringe) 50 ml Q15M PRN IV DECREASED GLUCOSE Last administered on 10/28/18 19:44; Admin Dose 50 ML; Start 10/20/18 at 10:30 Glucagon (Glucagen) 1 mg Q15M PRN IM DECREASED GLUCOSE; Start 10/20/18 at 10:30 Glucose (Glutose) 15 gm Q15M PRN BUCCAL DECREASED GLUCOSE; Start 10/20/18 at 10:30 Heparin Sodium (Porcine) (Heparin (1000 Units/ml)) 3,700 unit AFTER DIALYSIS CATHETER Last administered on 10/29/18 12:16; Admin Dose 3,700 UNIT; Start 10/21/18 at 08:00 Trimethobenzamide HCl (Tigan) 200 mg Q6H PRN IM NAUSEA AND/OR VOMITING Last administered on 10/29/18 09:45; Admin Dose 200 MG; Start 10/21/18 at 13:00 Calcium Carbonate (Ca Carbonate) 750 mg Q2H PRN PO GI; Start 10/21/18 at 15:00 Clonidine (Catapres) 0.4 mg BID PO Last administered on 10/28/18 20:07; Admin Dose 0.4 MG; Start 10/21/18 at 14:00 Labetalol HCl (Normodyne) 1,200 mg BID PO Last administered on 10/28/18 21:27; Admin Dose 1,200 MG; Start 10/21/18 at 14:00 Loperamide HCl (Imodium Cap) 2 mg TID PRN PO DIARRHEA Last administered on 10/26/18 00:21; Admin Dose 2 MG; Start 10/21/18 at 14:00 Pantoprazole (Protonix Tab) 40 mg BID PO ; Start 10/21/18 at 14:00; Status Hold Ondansetron HCl 8 mg/Sodium Chloride 54 ml @ 216 mls/hr Q4H PRN IV NAUSEA AND/OR VOMITING Last administered on 10/29/18 04:59; Admin Dose 216 MLS/HR; Start 10/21/18 at 14:30 Insulin Aspart (Novolog Insulin Pen) NOVOLOG *CUSTOM* ALGORITHM AC MEALS AND BEDTIME SC Last administered on 10/29/18 08:24; Admin Dose 3 UNIT; Start 10/21/18 at 21:00 Al Hydrox/Mg Hydrox/Simethicone (Mag-Al Plus) 30 ml Q6H PRN PO GASTROINTESTINAL UPSET; Start 10/22/18 at 01:30 Epoetin Vic-epbx (RETACRIT(esrd)) 10,000 unit MoWeFr@1700 SC Last administered on 10/28/18 21:31; Admin Dose 10,000 UNIT; Start 10/23/18 at 17:00 Enalaprilat (Vasotec Iv) 1.25 mg Q6H PRN IV BLOOD PRESSURE SUPPORT; Start 10/22/18 at 11:00; Status Hold Pantoprazole (Protonix Iv) 40 mg BID@,18 IV Last administered on 10/29/18 06:23; Admin Dose 40 MG; Start 10/22/18 at 11:00 Levalbuterol (Xopenex Neb) 0.63 mg Q4H RESP THERAPY PRN HHN WHEEZING; Start 10/22/18 at 11:00 Methylnaltrexone [place] (Relistor) 12 mg Q48H SC Last administered on 10/28/18 15:10; Admin Dose 12 MG; Start 10/22/18 at 15:30 Hydralazine HCl (Apresoline) 100 mg TID PO Last administered on 10/28/18 20:08; Admin Dose 100 MG; Start 10/25/18 at 09:00 Labetalol HCl (Labetalol) 20 mg Q4H PRN IV ELEVATED BLOOD PRESSURE Last administered on 10/28/18 11:04; Admin Dose 20 MG; Start 10/25/18 at 15:00 Hydralazine HCl (Apresoline) 20 mg Q4H PRN IV SYS BP > 150 Last administered on 10/29/18 11:52; Admin Dose 20 MG; Start 10/25/18 at 11:30 Insulin Aspart (Novolog Insulin Pen) 4 unit WITH MEALS SC Last administered on 10/29/18 12:37; Admin Dose 4 UNIT; Start 10/25/18 at 17:55 Hydromorphone HCl (Dilaudid) 1 mg Q3H PRN IV BREAKTHROUGH PAIN Last administered on 10/29/18 12:18; Admin Dose 1 MG; Start 10/25/18 at 15:30 Sucralfate (Carafate) 1 gm QID PO Last administered on 10/29/18 13:03; Admin Dose 1 GM; Start 10/25/18 at 17:00 Hyoscyamine (Levsin (Sl)) 0.125 mg Q8 PO Last administered on 10/29/18 13:03; Admin Dose 0.125 MG; Start 10/25/18 at 16:00 Losartan Potassium (Cozaar) 100 mg DAILY PO Last administered on 10/28/18 08:34; Admin Dose 100 MG; Start 10/27/18 at 09:00 Spironolactone (Aldactone) 50 mg BID DIURETICS PO Last administered on 10/29/18 06:23; Admin Dose 50 MG; Start 10/26/18 at 18:00 Diphenhydramine HCl (Benadryl) 50 mg Q6H PRN PO ITCHING; Start 10/27/18 at 01:30 Diphenhydramine HCl (Benadryl) 25 mg Q4H PRN IV ITCHING Last administered on 10/29/18 12:26; Admin Dose 25 MG; Start 10/28/18 at 13:00 Hydromorphone HCl (Dilaudid) 4 mg Q4H PRN PO SEVERE PAIN LEVEL 7-10 Last administered on 10/28/18 11:33; Admin Dose 4 MG; Start 10/28/18 at 11:30 Insulin Glargine (Lantus) 4 units Q12 SC Last administered on 10/29/18 08:26; Admin Dose 4 UNITS; Start 10/28/18 at 23:00 Diphenhydramine HCl (Benadryl) 50 mg Q8 PRN IV ITCHING Last administered on 10/29/18 08:39; Admin Dose 50 MG; Start 10/29/18 at 04:30 Eye Lubricant (Artificial Tears Oph) 2 drop Q6H PRN BOTH EYES DRY EYES Last administered on 10/29/18 12:42; Admin Dose 2 DROP; Start 10/29/18 at 08:00 RAHEL FAJARDO MD Oct 29, 2018 14:45
[2018-10-29] MEDS ORDERED: HYOS0.1297 PO (14:57)
[2018-10-29] MEDS ORDERED: HYDR-3672 PO (14:57)
[2018-10-29] MEDS ORDERED: LOSA50TA2 PO (14:57)
[2018-10-29] MEDS ORDERED: SUCR1TAB35 PO (14:57)
[2018-10-29] MEDS ORDERED: PANT40TA4 PO (14:57)
--- NOTE | 2018-10-29 15:05 | PDOCDIS ---
Discharge Instructions DIAGNOSIS Discharge Diagnosis Tibial plateau chronic fracture. CONDITION [id number] Patient Condition: [id number] Fair HOME CARE INSTRUCTIONS: [id number] Diet Instructions: [id number] Reduced Sodium ACTIVITY: [id number] Activity Restrictions: Ohexd7m No Weight Bearing (on Right leg) FOLLOW UP/APPOINTMENTS Follow-up Plan 1. Take all medications as prescribed. 2. Keep R leg nonweightbearing. 3. See your primary care doctor within 1 week. 4. Make an appointment with an orthopedic surgeon in 4-8 weeks. If your primary care doctor cannot refer you, go to [facility] ([id number] [facility] [place] [address]). 5. Make an appointment with a dirt bike racer in 4-8 weeks for pulmonary artery catherization. If your primary care doctor cannot refer you, go to [facility]. VINICIUS YAÑEZ MD Oct 29, 2018 15:05
[2018-10-29] MEDS ORDERED: NEOMYC/POLYMYX/HC 10 ML OTIC SUSP ONE (16:19)
--- NOTE | 2018-10-29 18:00 | DS ---
Date/Time of Note Date/Time of Note DATE: 10/29/18 TIME: 17:56 Discharge Summary Admission/Discharge Info Admit Date/Time Oct 19, 2018 at 23:42 Discharge Date/Time October 29, 2018 Discharge Diagnosis Tibial plateau chronic fracture. Hx of Present Illness Chief complaint: Swelling and pain right lower extremity This is a 28-year-old female who presents to the emergency department after she was unable to complete dialysis due to having nausea and vomiting. Patient reports that she recently twisted her ankle and fell. She was recently admitted to [facility] and was discharged. She does not very clear on what she was treated for at [facility]. she reports that yesterday she was at dialysis and she ended up having nausea and vomiting.. She did present to the ER in a walking boot. And therefore she came to [facility] ER. She does report that her sugar levels have been higher than usual. And she continues to have pain in her right lower extremity. She is legally blind. She did report that her mother said that her leg has been discolored. And she has been having her family members carry her around. She does have throbbing pain in her right lower extremity. She denies any fevers. She does report pain in her right lower extremity approximately 7 out of 10 and was requesting Dilaudid. allergies: Adhesive tape, benazepril, clindamycin, ketorolac, latex, Reglan, morphine, tramadol Medications: See [facility] Hospital Course The patient was initially admitted to the ICU. She has very brittle diabetes and was fluctuating between hyper and hypo glycemia. Also had uncontrolled hypertension and we had to titrate up her current anti-hypertensives and add losartan. Finally, she has bad diabetic gastroenteritis and had poor PO tolerance; at times during this hospitalization she required an NG tube. She was evaluated by Dr. Babcock who determined her fracture was not operable. She will be placed in an immobilizing leg brace and re-evaluated outpatient in 4-6 weeks. Case management arranged for wheelchair with R leg extension. She has a walker at home. She had severe pain related to the fracture and will be discharged on dilaudid 4mg PO #30 as well as [place] 10/325 #30. She had an echo which showed severe pulmonary artery hypertension >90 mmHg. She was evaluated by Dr. Deluca who recommended outpatient pulmonary artery catheterization. Home Meds Reported Medications Pantoprazole (Protonix) 40 Mg Tabec, 40 MG PO BID, TAB 10/21/18 Loperamide Hcl* (Imodium*) 2 Mg Capsule, 2 MG PO TID PRN for DIARRHEA, CAP MAX 16 mg/day 10/21/18 Insulin Glargine* (Lantus*) 100 Unit/Ml Soln, 10 UNIT SC DAILY, #1 VIAL 10/21/18 Insulin Lispro (Humalog) 100 Unit/1 Ml Cartridge, 100 UNIT SQ SLIDING SCALE 5-15 U, EA 10/21/18 Lorazepam* (Lorazepam*) 0.5 Mg Tablet, 0.5 MG PO Q6 PRN for AGITATION/ANXIETY, TAB 10/21/18 Calcium Carbonate* (Tums X-Str) 300 Mg Tab.chew, 300 MG PO Q2H PRN for GASTROINTESTINAL UPSET, TAB.CHEW 10/21/18 Clonidine Hcl* (Clonidine Hcl*) 0.3 Mg Tablet, 0.4 MG PO BID, TAB 10/21/18 Hydralazine Hcl* (Hydralazine Hcl*) 50 Mg Tab, 100 MG PO BID, #180 TAB 10/21/18 Spironolactone* (Spironolactone*) 100 Mg Tablet, 25 MG PO BID, TAB 10/21/18 Labetalol Hcl (Normodyne) 200 Mg Tablet, 1200 MG PO BID, TAB 10/21/18 Hydromorphone Hcl (Dilaudid) 2 Mg Tab, 2 MG PO Q4 PRN for PAIN, TAB 10/21/18 Clonidine Patch (CLONIDINE PATCH) 0.3 Mg/24 Hr Patch, 2 PATCH.WK TD Q7D, #4 PATCH.WK 10/21/18 Follow-up Plan 1. Take all medications as prescribed. 2. Keep R leg nonweightbearing. 3. See your primary care doctor within 1 week. 4. Make an appointment with an orthopedic surgeon in 4-8 weeks. If your primary care doctor cannot refer you, go to [facility] ([id number] [facility] [place], [place] [address]). 5. Make an appointment with a transmission technician in 4-8 weeks for pulmonary artery catherization. If your primary care doctor cannot refer you, go to [facility]. Primary Care Provider Not On Staff Doctor Time spent on discharge: > 30 minutes Pending Labs Laboratory Tests Test 10/28/18 19:38 10/28/18 20:30 10/28/18 21:24 10/29/18 03:48 Bedside 41 150 85 311 Glucose mg/dL (70-220) mg/dL (70-220) mg/dL (70-220) mg/dL (70-220) Test 10/29/18 08:21 10/29/18 12:29 Bedside 331 116 Glucose mg/dL (70-220) mg/dL (70-220) VINICIUS YAÑEZ MD Oct 29, 2018 18:00
[2018-10-29] MEDS ORDERED: INSULIN ASPART [NOVOLOG] 3 ML PEN SC SCH (19:00)
[2018-10-29] MEDS ORDERED: INSULIN GLARGINE [LANTus] (100 UNITS/ML) SYG SC SCH (21:00)
== END 2018-10-29 21:10 | disposition home or self-care (01) | DRG 637 ==
LOC: E/R 20:18 → ICU 23:42 → MS1 10-21 03:45 → ICU 10-21 14:19 → TEL 10-22 22:29 → 2NE 10-29 01:55
PROVIDERS: ADMIT Family Medicine; ATTEND Internal Medicine
PROC: 5A1D70Z Performance of Urinary Filtration, Intermittent, Less than 6 Hours Per Day (ICD-10-PCS; principal; 2018-10-21)
PROC: 30233N1 Transfusion of Nonautologous Red Blood Cells into Peripheral Vein, Percutaneous Approach (ICD-10-PCS; 2018-10-24)
DX: E10.10 Type 1 diabetes mellitus with ketoacidosis without coma (principal); N18.6 End stage renal disease; I12.0 Hypertensive chronic kidney disease with stage 5 chronic kidney disease or end stage renal disease; L03.115 Cellulitis of right lower limb; F11.23 Opioid dependence with withdrawal; N25.81 Secondary hyperparathyroidism of renal origin; E10.22 Type 1 diabetes mellitus with diabetic chronic kidney disease; E10.65 Type 1 diabetes mellitus with hyperglycemia; Z99.2 Dependence on renal dialysis; I16.0 Hypertensive urgency; E87.5 Hyperkalemia; D63.1 Anemia in chronic kidney disease; H54.8 Legal blindness, as defined in USA; S82.251D Displaced comminuted fracture of shaft of right tibia, subsequent encounter for closed fracture with routine healing; S82.451D Displaced comminuted fracture of shaft of right fibula, subsequent encounter for closed fracture with routine healing; W19.XXXD Unspecified fall, subsequent encounter; E83.9 Disorder of mineral metabolism, unspecified; E10.319 Type 1 diabetes mellitus with unspecified diabetic retinopathy without macular edema; E10.21 Type 1 diabetes mellitus with diabetic nephropathy; M43.9 Deforming dorsopathy, unspecified; M54.89 Other dorsalgia; E55.9 Vitamin D deficiency, unspecified; I27.20 Pulmonary hypertension, unspecified; K27.9 Peptic ulcer, site unspecified, unspecified as acute or chronic, without hemorrhage or perforation; K52.29 Other allergic and dietetic gastroenteritis and colitis
CPT/HCPCS: 36415; 36430; 36600; 71045; 72128; 72131; 73590; 73700; 74018; 74250; 80048; 80202; 82270; 82306; 82728; 82803; 82962; 83036; 83540; 83605; 83735; 83970; 84100; 84484; 84703; 85014; 85018; 85025; 85610; 85651; 85730; 86038; 86140; 86160; 86226; 86235; 86703; 86706; 86850; 86900; 86901; 86920; 87081; 87338; 87340; 90935; 92526; 92610; 93005; 93306; 93971; 94640; 94664; 96374; 96375; 96376; 97116; 97162; 97530; C9113; J0360; J1100; J1170; J1200; J1644; J1815; J2060; J2270; J2405; J2543; J3250; J3370; J3480; J7040; J7042; J7120; L1832; P9016; Q4081; Q5105; Q9967

== ENCOUNTER 2018-11-01 14:46 | Inpatient (IN) | payer OTHER ==
[~2018-11-01] VITALS: Ht 162.6 cm; Wt 68.4 kg
[~2018-11-01 14:46] MED LIST: CALC300T4 PO; CLON0.3T PO; CLON1PAT3 TD; HYDR-3672 PO; HYDR2TAB3 PO; HYOS0.1297 PO; INSU100C SQ; LABE200T7 PO; LANT3I SC; LOPE2CAP PO; LORA0.5T PO; LOSA50TA2 PO; PANT40TA4 PO; SPIR100T4 PO; SUCR1TAB35 PO
[2018-11-01] MEDS ORDERED: ONDANSETRON 4 MG INJ IV STA (16:57)
[2018-11-01] MEDS ORDERED: HYDROmorphONE 1 MG/ML SYG IV STA ×2 (16:57→19:57)
[2018-11-01] MEDS ORDERED: hydrALAzine 20 MG INJ IV ONE (17:00)
--- NOTE | 2018-11-01 17:05 | ERD ---
ER Documentation Chief Complaint Chief Complaint pt is bib family with c/o htn, leg pain, elevated BS 395, just dc'ed HPI 28-year-old female with a history of hypertension, diabetes, ESRD on hemodialysis told to come into the hospital by her dialysis center today due to complaints of subjective fever last night. Her dialysis center did not do her dialysis and sent her here. Patient is complaining of nausea, right lower extremity pain due to her recent fracture, and uncontrolled blood sugar and hypertension. She was just discharged from the hospital a few days ago on October 29, 2017. She was admitted for 10 days for uncontrolled hypertension and uncontrolled diabetes. She was discharged on Dilaudid and told to follow-up with outpatient orthopedist and motor and controls tester. Of note, she was found to have pulmonary hypertension on this admission as well. Patient denies any fevers today. No vomiting but has poor appetite and nausea. She is nonweightbearing on her right lower extremity and has a brace in place. ROS All systems reviewed and are negative except as per history of present illness. Medications Home Meds Active Scripts Pantoprazole* (Pantoprazole*) 40 Mg Tablet.dr, 40 MG PO BID, #60 TAB Prov:VINICIUS YAÑEZ MD 10/29/18 Sucralfate (Carafate) 1 Gm Tablet, 1 GM PO QID, #60 TAB Prov:VINICIUS YAÑEZ MD 10/29/18 Losartan Potassium* (Cozaar*) 50 Mg Tablet, 100 MG PO DAILY, #60 TAB Prov:VINICIUS YAÑEZ MD 10/29/18 Hyoscyamine Sulfate* (Hyoscyamine Sulfate*) 0.125 Mg Tab.subl, 0.125 MG PO Q8 PRN for NAUSEA, #60 TAB Prov:VINICIUS YAÑEZ MD 10/29/18 Hydralazine Hcl* (Hydralazine Hcl*) 50 Mg Tab, 100 MG PO TID, #180 TAB Prov:VINICIUS YAÑEZ MD 10/29/18 Reported Medications Loperamide Hcl* (Imodium*) 2 Mg Capsule, 2 MG PO TID PRN for DIARRHEA, CAP MAX 16 mg/day 10/21/18 Insulin Glargine* (Lantus*) 100 Unit/Ml Soln, 10 UNIT SC DAILY, #1 VIAL 10/21/18 Insulin Lispro (Humalog) 100 Unit/1 Ml Cartridge, 0 SQ SLIDING SCALE 5-15 U, EA 10/21/18 Lorazepam* (Lorazepam*) 0.5 Mg Tablet, 0.5 MG PO Q6 PRN for AGITATION/ANXIETY, TAB 10/21/18 Calcium Carbonate* (Tums X-Str) 300 Mg Tab.chew, 300 MG PO Q2H PRN for GASTROINTESTINAL UPSET, TAB.CHEW 10/21/18 Clonidine Hcl* (Clonidine Hcl*) 0.3 Mg Tablet, 0.4 MG PO BID, TAB 10/21/18 Spironolactone* (Spironolactone*) 100 Mg Tablet, 25 MG PO BID, TAB 10/21/18 Labetalol Hcl (Normodyne) 200 Mg Tablet, 1200 MG PO BID, TAB 10/21/18 Hydromorphone Hcl (Dilaudid) 2 Mg Tab, 2 MG PO Q4 PRN for PAIN, TAB 10/21/18 Clonidine Patch (CLONIDINE PATCH) 0.3 Mg/24 Hr Patch, 2 PATCH.WK TD Q7D, #4 PATCH.WK 10/21/18 Discontinued Reported Medications Pantoprazole (Protonix) 40 Mg Tabec, 40 MG PO BID, TAB 10/21/18 Allergies Allergies: Coded Allergies: amlodipine (Verified Allergy, Intermediate, swelling of lips, 11/01/18) nifedipine (Verified Allergy, Intermediate, 11/01/18) adhesive tape (Verified Allergy, Mild, 11/01/18) benazepril (Verified Allergy, Mild, 11/01/18) ketorolac (Verified Allergy, Mild, 11/01/18) latex (Verified Allergy, Mild, 11/01/18) metoclopramide (Verified Allergy, Mild, 11/01/18) morphine (Verified Allergy, Mild, 11/01/18) tramadol (Verified Allergy, Mild, 11/01/18) clindamycin (Verified Allergy, Unknown, 11/01/18) PMhx/Soc History of Surgery: No Anesthesia Reaction: No Hx Neurological Disorder: No Hx Respiratory Disorders: Yes (asthma) Hx Cardiac Disorders: Yes (htn) Hx Psychiatric Problems: No Hx Miscellaneous Medical Probl: Yes (pls see EMR) Hx Alcohol Use: No Hx Substance Use: No Hx Tobacco Use: No FmHx Family History: diabetes Physical Exam Vitals Vital Signs Date Temp Pulse Resp B/P (MAP) Pulse Ox O2 O2 Flow FiO2 Time Delivery Rate 11/01/18 98.3 111 18 179/85 97 15:05 (116) Physical Exam Const: No acute distress, nontoxic, chronically ill-appearing Head: Atraumatic Eyes: Normal Conjunctiva ENT: Dry mucous membranes. Normal External Ears, Nose and Mouth. Poor dentition Neck: Full range of motion. No meningismus. Chest: Right sided Tremayne catheter, without evidence of surrounding erythema or tenderness Resp: Clear to auscultation bilaterally Cardio: Regular rate and rhythm, no murmurs Abd: Soft, non tender, non distended. Normal bowel sounds Skin: No petechiae or rashes. Right lower extremity Back: No midline or flank tenderness Ext: No cyanosis pitting edema with no associated erythema or open wounds. Tender to palpation below knee due to fracture. Distally warm to palpation. Normal cap refill. Left lower extremity without significant edema Neur: Awake and alert, oriented x3, no facial asymmetry, normal speech, moving all extremities spontaneously Psych: Normal Mood and Affect Result Diagram: 11/01/18 1718 11/01/18 1718 Results 24 hrs Laboratory Tests Test 11/01/18 16:57 11/01/18 17:14 11/01/18 17:18 11/01/18 17:21 Blood Gas Blood venous Specimen Source Arterial Blood 11/01/2018 5:35:29 Date Drawn PM Arterial Blood OTHER Gas Puncture Site Maicol Test N/A Venous Blood pH 7.227 Venous Blood pCO2 29.8 mmHG (Temp Corrected) Venous Blood pO2 53.8 mmHG (Temp Corrected) Venous Blood HCO3 12.1 mmol/L Venous Blood 81.5 mmHG Oxygen Saturation Venous Blood Base -14.2 mmol/L Excess Venous Blood 9.7 g/dl Total Hemoglobin Venous Blood 80.8 % Oxyhemoglobin Venous Blood 0.4 % Methemoglobin Blood Gas A-a O2 60.2 mmHg Differential Carboxyhemoglobin 0.5 % Blood Gas 37.0 C Temperature Blood Gas ROOM AIR Modality FiO2 21.0 % Blood Gas MDA Notified Whom Blood Gas 11/01/2018 5:39:15 Notified Time PM Bedside Glucose 421 mg/dL White Blood Count 7.0 10^3/ul Red Blood Count 2.75 10^6/ul Hemoglobin 8.3 g/dl Hematocrit 26.3 % Mean Corpuscular 95.6 fl Volume Mean Corpuscular 30.2 pg Hemoglobin Mean Corpuscular 31.6 g/dl Hemoglobin Concen t Red Cell 17.4 % Distribution Width Platelet Count 179 10^3/UL Mean Platelet 10.0 fl Volume Immature 0.300 % Granulocytes % Neutrophils % 79.9 % Lymphocytes % 5.0 % Monocytes % 11.2 % Eosinophils % 2.9 % Basophils % 0.7 % Nucleated Red 0.0 /100WBC Blood Cells % Immature 0.020 10^3/ul Granulocytes # Neutrophils # 5.6 10^3/ul Lymphocytes # 0.4 10^3/ul Monocytes # 0.8 10^3/ul Eosinophils # 0.2 10^3/ul Basophils # 0.1 10^3/ul Nucleated Red 0.0 10^3/ul Blood Cells # Sodium Level 137 mmol/L Potassium Level 4.9 mmol/L Chloride Level 103 mmol/L Carbon Dioxide 12 mmol/L Level Anion Gap 22 Blood Urea 41 mg/dl Nitrogen Creatinine 9.03 mg/dl Est Glomerular 5 mL/min Filtrat Rate mL/min Glucose Level 438 mg/dl Lactic Acid Level 1.0 mmol/L Calcium Level 10.1 mg/dl Serum HCG, NEGATIVE Qualitative Current Medications Medications Dose Sig/Alyssa Start Time Status Last (Trade) Ordered Route PRN Stop Time Admin Dose Reason Admin 1 mg ONCE STAT 11/01/18 DC 11/01/18 Hydromorphone IV 16:57 11/01/18 17:46 HCl 17:00 (Dilaudid) Hydralazine 10 mg ONCE ONCE 11/01/18 DC 11/01/18 HCl IV 17:00 11/01/18 17:45 (Apresoline) 17:01 Ondansetron 4 mg ONCE STAT 11/01/18 DC 11/01/18 HCl (Zofran IV 16:57 11/01/18 17:44 Inj) 17:00 Potassium 1,000 ml @ Q0M IV 11/01/18 Chloride/Sodi 0 mls/hr 17:55 um Chloride Potassium 1,000 ml @ Q0M IV 11/01/18 Chloride/Dext 0 mls/hr 17:55 sara/ Sod Cl Potassium 1,000 ml @ Q0M IV 11/01/18 Chloride/Sodi 0 mls/hr 17:55 um Chloride Potassium 1,000 ml @ Q0M IV 11/01/18 Chloride/Dext 0 mls/hr 17:55 sara/ Sod Cl Sodium 1,000 ml @ Q0M IV 11/01/18 Chloride 0 mls/hr 17:55 1,000 ml @ Q0M IV 11/01/18 Dextrose/Sodi 0 mls/hr 17:55 um Chloride Insulin 101 ml @ ER DKA 11/01/18 Human 7.07 mls/hr PROTOCOL IV 18:00 Regular 100 unit/ Sodium Chloride Lactated 700 ml @ ONCE ONCE 11/01/18 Ringer's 700 mls/hr IV 18:00 11/01/18 18:59 HYPOGLYCEM 11/01/18 Miscellaneous HYPOGLYCEMIA PROTOCOL PRN 18:00 TREATMENT XX Information .HYPOGLYCEMIA (* PROTOCOL Miscellaneous Pharmacy Order) Dextrose 50 ml Q15M PRN 11/01/18 (D50w IV 18:00 Syringe) .DECREASED GLUCOSE Dextrose 25 ml Q15M PRN 11/01/18 (D50w IV 18:00 Syringe) .DECREASED GLUCOSE Famotidine 20 mg ONCE STAT 11/01/18 DC (Pepcid Iv) IV 18:11 11/01/18 18:12 40 ml ONCE STAT 11/01/18 DC Miscellaneous PO 18:11 11/01/18 Medication 18:12 (Gi Cocktail (2)) Procedures/MDM EMERGENT LABS AND DIAGNOSTIC STUDIES: Lab Results above were reviewed and interpreted by me. CBC: Mild anemia, chronic. No evidence of infection BMP: Elevated BUN and creatinine consistent with ESRD. Hyperglycemic with evidence of acidosis, likely DKA Lactate within normal limits without evidence of sepsis or tissue hypoperfusion VBG shows mild acidosis Radiology Results as interpreted by Radiology below were reviewed by Ward Perry MD: Chest x-ray: Right central venous catheter tip in the low right atrium again seen. Enlargement of cardiac silhouette is again seen. Artifact related to brassiere is projected over chest. Hypoinflation of the lungs and minimal bibasilar atelectasis. There is mild increased density in the left mid lung which could represent infiltrate.. Initial Nursing notes reviewed. Previous Medical Records requested via the Electronic Health Record. EMERGENCY DEPARTMENT COURSE / MEDICAL DECISION MAKING: Patient is presenting with uncontrolled hypertension and blood sugar. Her vitals were notable for hypertension and tachycardia. Labs are consistent with DKA. DKA protocol was initiated. I spoke with the hospitalist team and the patient will be admitted to the ICU by Dr. Bennett. At this time, I have a low suspicion for serious bacterial infection or sepsis. Critical Care Time: 35 minutes Treatments/Evaluations: Close monitoring and treatment of unstable vital signs, cardiorespiratory, and neurologic status, while maintaining tight balance of fluid, respiratory, and cardiac interventions. This time includes discussing the case with the patient and the patients family. This time does not include all procedures stated elsewhere in this record. This time also includes reviewing old records, labs and radiological studies. This time includes examining and re- examining the patient. Additionally, this time also includes arranging care with admitting and consulting physicians. Departure Diagnosis: Primary Impression: DKA (diabetic ketoacidosis) Diabetes mellitus type: type 2 Diabetes mellitus complication detail: without coma Qualified Codes: E11.10 - Type 2 diabetes mellitus with ketoacidosis without coma Additional Impressions: Uncontrolled hypertension ESRD on dialysis Condition: Critical PEDRITO PERRY MD November 01, 2018 17:05
[2018-11-01] MEDS ORDERED: NS + KCL 40 MEQ 1,000 ML IV SCH (17:55)
[2018-11-01] MEDS ORDERED: D10/0.45% NACL + KCL 40 MEQ 1,000 ML IV SCH (17:55)
[2018-11-01] MEDS ORDERED: DEXTROSE 10%/0.45% NACL 1,000 ML IV SCH (17:55)
[2018-11-01] MEDS ORDERED: SOD CHLORIDE 0.9% 1,000 ML IV SCH (17:55)
[2018-11-01] MEDS ORDERED: LACTATED RINGER'S 700 ML IV ONE (18:00)
[2018-11-01] MEDS ORDERED: INSULIN REGULAR, HUMAN 100 UNIT in SOD CHLORIDE 0.9% 100 ML IV SCH ×2 (18:00)
[2018-11-01] MEDS ORDERED: DEXTROSE 50% 50 ML SYRINGE IV PRN ×2 (18:00)
[2018-11-01] MEDS ORDERED: FAMOTIDINE 20 MG INJ IV STA (18:11)
[2018-11-01] MEDS ORDERED: LIDOCAINE/MYLANTA 40 ML BTL PO STA (18:11)
--- NOTE | 2018-11-01 19:27 | HP ---
Date/Time of Note Date/Time of Note DATE: 11/01/18 TIME: 19:13 Assessment/Plan VTE Prophylaxis SCD applied (from Nsg): Yes Pharmacological prophylaxis: heparin Lines/Catheters IV Catheter Type (from Nrsg): Saline Lock Assessment/Plan Hospital Course EXAM Alert oriented Chronically ill appearing Comfortable, no distress Neck veins flat RRR Clear lungs Abdomen soft, somewhat tender to palpation RLE in immobilizer A/P: 28 yo female with h/o DMI with ESRD, blindness and recent admission for tib/fib fracture discharged a few days ago, now returns with continued nausea, malaise and pain in RLE Suspected DKA: - Hard to confirme without urine ketones but we will presume this is DKA given increase AG, hyperglycemia, and metabolic acidosis. Patient has been started on DKA protocol, will continue insulin gtt - Will be cautious with further fluids given anuria RLE fracture: - Pain control ESRD: - HD per Dr Spear Anemia of CKD Metabolic acidosis To ICU Result Diagram: 11/01/18 1718 11/01/18 1718 Results 24hrs Laboratory Tests Test 11/01/18 16:57 11/01/18 17:14 11/01/18 17:18 11/01/18 17:21 Blood Gas Specimen Blood venous Source Arterial Blood 11/01/2018 5:35:29 Date Drawn PM Arterial Blood Gas OTHER Puncture Site Maicol Test N/A Venous Blood pH 7.227 L Venous Blood pCO2 29.8 L (Temp Corrected) Venous Blood pO2 53.8 H (Temp Corrected) Venous Blood HCO3 12.1 L Venous Blood 81.5 H Oxygen Saturation Venous Blood Base -14.2 L Excess Venous Blood Total 9.7 Hemoglobin Venous Blood 80.8 Oxyhemoglobin Venous Blood 0.4 Methemoglobin Blood Gas A-a O2 60.2 Differential Carboxyhemoglobin 0.5 Blood Gas 37.0 Temperature Blood Gas Modality ROOM AIR FiO2 21.0 Blood Gas Notified MDA Whom Blood Gas Notified 11/01/2018 5:39:15 Time PM Bedside Glucose 421 *H White Blood Count 7.0 # Red Blood Count 2.75 L Hemoglobin 8.3 L Hematocrit 26.3 L Mean Corpuscular 95.6 Volume Mean Corpuscular 30.2 Hemoglobin Mean Corpuscular 31.6 L Hemoglobin Concent Red Cell 17.4 H Distribution Width Platelet Count 179 Mean Platelet 10.0 Volume Immature 0.300 Granulocytes % Neutrophils % 79.9 H Lymphocytes % 5.0 L Monocytes % 11.2 H Eosinophils % 2.9 Basophils % 0.7 Nucleated Red 0.0 Blood Cells % Immature 0.020 Granulocytes # Neutrophils # 5.6 Lymphocytes # 0.4 L Monocytes # 0.8 Eosinophils # 0.2 Basophils # 0.1 Nucleated Red 0.0 Blood Cells # Sodium Level 137 Potassium Level 4.9 Chloride Level 103 Carbon Dioxide 12 L Level Anion Gap 22 H Blood Urea 41 H Nitrogen Creatinine 9.03 H Est Glomerular 5 L Filtrat Rate mL/min Glucose Level 438 *H Hemoglobin A1c 7.4 H Lactic Acid Level 1.0 Calcium Level 10.1 Serum HCG, NEGATIVE Qualitative HPI/ROS Admit Date/Time Admit Date/Time Hx of Present Illness 28 yo female with h/o ESRD, DMII, blindness and recent hospitalization for tib/fib fracture who presents with nausea and hyperglycemia and leg pain Patient was just discharged a few days ago from this hospital where she was treated for DKA and leg fracture. Returned home. Has felt unwell since . Had a subjective fever yesterday. Continues to have nausea and occasional dry heaves. Continued pain in her leg. Went to HD today where they sent her to ER for evaluation without dialysis first. Major complaint seems to be of nausea. Has been given zofran without good effect. Also with leg pain In ED found to have hyperglycemia with acidosis so started on insulin drip and given IV fluids for presumed DKA ROS Constitutional: no complaints, improved Eyes: no complaints ENT: no complaints Respiratory: no complaints Cardiovascular: no complaints Gastrointestinal: no complaints Genitourinary: no complaints Musculoskeletal: no complaints Skin: no complaints Neurologic: no complaints Endocrine: no complaints Lymphatic: no complaints Psychological: no complaints, nl mood/affect Immunologic: no complaints PMH/Family/Social Past Medical History Medical History: diabetes Medications Current Medications Potassium Chloride/Sodium Chloride 1,000 ml @ 0 mls/hr Q0M IV ; Start 11/01/18 at 17:55 Potassium Chloride/Dextrose/ Sod Cl 1,000 ml @ 0 mls/hr Q0M IV ; Start 11/01/18 at 17:55 Potassium Chloride/Sodium Chloride 1,000 ml @ 0 mls/hr Q0M IV ; Start 11/01/18 at 17:55 Potassium Chloride/Dextrose/ Sod Cl 1,000 ml @ 0 mls/hr Q0M IV ; Start 11/01/18 at 17:55 Sodium Chloride 1,000 ml @ 0 mls/hr Q0M IV Last administered on 11/01/18at 18:29; Admin Dose 700 MLS/HR; Start 11/01/18 at 17:55 Dextrose/Sodium Chloride 1,000 ml @ 0 mls/hr Q0M IV ; Start 11/01/18 at 17:55 Insulin Human Regular 100 unit/ Sodium Chloride 101 ml @ 7.07 mls/hr ER DKA PROTOCOL IV ; Start 11/01/18 at 18:00 Miscellaneous Information (* Miscellaneous Pharmacy Order) HYPOGLYCEMIA TREATMENT HYPOGLYCEM PROTOCOL PRN XX .HYPOGLYCEMIA PROTOCOL; Start 11/01/18 at 18:00 Dextrose (D50w Syringe) 50 ml Q15M PRN IV .DECREASED GLUCOSE; Start 11/01/18 at 18:00 Dextrose (D50w Syringe) 25 ml Q15M PRN IV .DECREASED GLUCOSE; Start 11/01/18 at 18:00 Coded Allergies: amlodipine (Verified Allergy, Intermediate, swelling of lips, 11/01/18) nifedipine (Verified Allergy, Intermediate, 11/01/18) adhesive tape (Verified Allergy, Mild, 11/01/18) benazepril (Verified Allergy, Mild, 11/01/18) ketorolac (Verified Allergy, Mild, 11/01/18) latex (Verified Allergy, Mild, 11/01/18) metoclopramide (Verified Allergy, Mild, 11/01/18) morphine (Verified Allergy, Mild, 11/01/18) tramadol (Verified Allergy, Mild, 11/01/18) clindamycin (Verified Allergy, Unknown, 11/01/18) Past Surgical History Past Surgical Hx: no surgical history, other Family History Significant Family History: diabetes Social History Alcohol Use: none Smoking Status: Never smoker Drug Use: none Exam/Review of Systems Vital Signs Vitals Vital Signs Date Temp Pulse Resp B/P (MAP) Pulse Ox O2 O2 Flow FiO2 Time Delivery Rate 11/01/18 98.3 111 18 179/85 97 15:05 (116) JERAMIE KEE MD November 01, 2018 19:27
[2018-11-01] MEDS ORDERED: HYDROCODONE/APAP (5/325) TAB PO PRN (19:30)
[2018-11-01] MEDS ORDERED: NACL 0.9% 3 ML SYG IV SCH (19:30)
[2018-11-01] MEDS ORDERED: ONDANSETRON 4 MG INJ IV PRN (19:30)
[2018-11-01] MEDS: NS + KCL 30 MEQ 1,000 ML IV SCH (19:30)
[2018-11-01] MEDS ORDERED: DIPHENHYDRAMINE 25 MG CAP PO PRN (19:30)
[2018-11-01] MEDS ORDERED: DIPHENHYDRAMINE 50 MG INJ ONE (21:10)
[2018-11-01] MEDS: HEPARIN 5,000 UNIT/1 ML VIAL SC SCH (21:18)
[2018-11-01] MEDS ORDERED: DIPHENHYDRAMINE 50 MG INJ IV PRN (21:30)
[2018-11-01] MEDS: D10/0.45% NACL + KCL 30 MEQ 1,000 ML IV SCH (22:35)
[2018-11-01 23:19] VITALS: PULSE 90
[2018-11-01 23:21] VITALS: BP 217/105
[2018-11-01 23:32] VITALS: Ht 162.6 cm; Wt 68.4 kg
[2018-11-02] VITALS (46 sets, daily range): BP systolic 91–214; BP diastolic 50–112; PULSE 70–91; RESP 10–21
[2018-11-02] MEDS ORDERED: HYDROmorphONE 2 MG/ML SYG IV STA (00:12)
[2018-11-02] MEDS ORDERED: hydrALAzine 20 MG INJ IV ONE (00:30)
[2018-11-02] MEDS: ONDANSETRON 4 MG INJ IV PRN ×4 (00:50→13:07)
[2018-11-02] MEDS: DIPHENHYDRAMINE 50 MG INJ IV PRN ×5 (00:51→11:13)
[2018-11-02] MEDS: NS + KCL 30 MEQ 1,000 ML IV SCH (01:09)
[2018-11-02] MEDS ORDERED: INSULIN GLARGINE [LANTus] (100 UNITS/ML) SYG SC ONE (05:00)
[2018-11-02] MEDS: D10/0.45% NACL + KCL 30 MEQ 1,000 ML IV SCH (05:04)
--- NOTE | 2018-11-02 07:20 | CONS ---
Assessment/Plan Assessment/Plan Hospital Course (Demo Recall) Hx of Present Illness 28 yo female with h/o ESRD, DMII, blindness and recent hospitalization for tib/fib fracture who presents with nausea and hyperglycemia and leg pain Patient was just discharged a few days ago from this hospital where she was treated for DKA and leg fracture. Returned home. Has felt unwell since . Had a subjective fever ,nausea and occasional dry heaves. Continued pain in her leg. Went to HD yesterday where they sent her to ER for evaluation without dialysis first. Major complaint seems to be of nausea. Has been given zofran without good effect. Also with leg pain In ED found to have hyperglycemia with acidosis so started on insulin drip and given IV fluids for presumed DKA we were asked to assist with management of her dialytic needs ROS Constitutional: no complaints, improved Eyes: no complaints ENT: no complaints Respiratory: no complaints Cardiovascular: no complaints Gastrointestinal: no complaints Genitourinary: no complaints Musculoskeletal: no complaints Skin: no complaints Neurologic: no complaints Endocrine: no complaints Lymphatic: no complaints Psychological: no complaints, nl mood/affect Immunologic: no complaints PMH/Family/Social Past Medical History Medical History: diabetes Coded Allergies: amlodipine (Verified Allergy, Intermediate, swelling of lips, 11/01/18) nifedipine (Verified Allergy, Intermediate, 11/01/18) adhesive tape (Verified Allergy, Mild, 11/01/18) benazepril (Verified Allergy, Mild, 11/01/18) ketorolac (Verified Allergy, Mild, 11/01/18) latex (Verified Allergy, Mild, 11/01/18) metoclopramide (Verified Allergy, Mild, 11/01/18) morphine (Verified Allergy, Mild, 11/01/18) tramadol (Verified Allergy, Mild, 11/01/18) clindamycin (Verified Allergy, Unknown, 11/01/18) Past Surgical History Past Surgical Hx: no surgical history, other Family History Significant Family History: diabetes Social History Alcohol Use: none Smoking Status: Never smoker Drug Use: none EXAM Alert oriented Chronically ill appearing Comfortable, no distress Neck veins flat RRR Clear lungs Abdomen soft, somewhat tender to palpation RLE in immobilizer A/P: 28 yo female with h/o DMI with ESRD, blindness and recent admission for tib/fib fracture discharged a few days ago, now returns with continued nausea, malaise and pain in RLE ESRD: - will dialyze today during which time I will reevaluate the patient again. routine access care will be done Anemia of CKD: will check iron panel Suspected DKA: - continue insulin gtt until anion gap is closed - continue maintenance ivf as the patient has minimal po intake RLE fracture: - Pain control Consultation Date/Type/Reason Admit Date/Time Type of Consult renal Reason for Consultation ESRD Date/Time of Note DATE: 11/02/18 TIME: 07:12 Past Medical History Medical History: diabetes Home Meds Active Scripts Pantoprazole* (Pantoprazole*) 40 Mg Tablet.dr, 40 MG PO BID, #60 TAB Prov:VINICIUS YAÑEZ MD 10/29/18 Sucralfate (Carafate) 1 Gm Tablet, 1 GM PO QID, #60 TAB Prov:VINICIUS YAÑEZ MD 10/29/18 Losartan Potassium* (Cozaar*) 50 Mg Tablet, 100 MG PO DAILY, #60 TAB Prov:VINICIUS YAÑEZ MD 10/29/18 Hyoscyamine Sulfate* (Hyoscyamine Sulfate*) 0.125 Mg Tab.subl, 0.125 MG PO Q8 PRN for NAUSEA, #60 TAB Prov:VINICIUS YAÑEZ MD 10/29/18 Hydralazine Hcl* (Hydralazine Hcl*) 50 Mg Tab, 100 MG PO TID, #180 TAB Prov:VINICIUS YAÑEZ MD 10/29/18 Reported Medications Loperamide Hcl* (Imodium*) 2 Mg Capsule, 2 MG PO TID PRN for DIARRHEA, CAP MAX 16 mg/day 10/21/18 Insulin Glargine* (Lantus*) 100 Unit/Ml Soln, 10 UNIT SC DAILY, #1 VIAL 10/21/18 Insulin Lispro (Humalog) 100 Unit/1 Ml Cartridge, 0 SQ SLIDING SCALE 5-15 U, EA 10/21/18 Lorazepam* (Lorazepam*) 0.5 Mg Tablet, 0.5 MG PO Q6 PRN for AGITATION/ANXIETY, TAB 10/21/18 Calcium Carbonate* (Tums X-Str) 300 Mg Tab.chew, 300 MG PO Q2H PRN for GASTROINTESTINAL UPSET, TAB.CHEW 10/21/18 Clonidine Hcl* (Clonidine Hcl*) 0.3 Mg Tablet, 0.4 MG PO BID, TAB 10/21/18 Spironolactone* (Spironolactone*) 100 Mg Tablet, 25 MG PO BID, TAB 10/21/18 Labetalol Hcl (Normodyne) 200 Mg Tablet, 1200 MG PO BID, TAB 10/21/18 Hydromorphone Hcl (Dilaudid) 2 Mg Tab, 2 MG PO Q4 PRN for PAIN, TAB 10/21/18 Clonidine Patch (CLONIDINE PATCH) 0.3 Mg/24 Hr Patch, 2 PATCH.WK TD Q7D, #4 PATCH.WK 10/21/18 Discontinued Reported Medications Pantoprazole (Protonix) 40 Mg Tabec, 40 MG PO BID, TAB 10/21/18 Medications Current Medications Potassium Chloride/Sodium Chloride 1,000 ml @ 0 mls/hr Q0M IV ; Start 11/01/18 at 17:55 Potassium Chloride/Dextrose/ Sod Cl 1,000 ml @ 0 mls/hr Q0M IV ; Start 11/01/18 at 17:55 Potassium Chloride/Sodium Chloride 1,000 ml @ 0 mls/hr Q0M IV Last administered on 11/02/18at 01:09; Admin Dose 100 MLS/HR; Start 11/01/18 at 17:55 Potassium Chloride/Dextrose/ Sod Cl 1,000 ml @ 0 mls/hr Q0M IV Last administered on 11/02/18at 05:04; Admin Dose 250 MLS/HR; Start 11/01/18 at 17:55 Sodium Chloride 1,000 ml @ 0 mls/hr Q0M IV Last administered on 11/01/18at 18:29; Admin Dose 700 MLS/HR; Start 11/01/18 at 17:55 Dextrose/Sodium Chloride 1,000 ml @ 0 mls/hr Q0M IV ; Start 11/01/18 at 17:55 Insulin Human Regular 100 unit/ Sodium Chloride 101 ml @ 7.07 mls/hr ER DKA PROTOCOL IV Last administered on 11/01/18at 19:34; Admin Dose 7.07 MLS/HR; Start 11/01/18 at 18:00 Miscellaneous Information (* Miscellaneous Pharmacy Order) HYPOGLYCEMIA TREATMENT HYPOGLYCEM PROTOCOL PRN XX .HYPOGLYCEMIA PROTOCOL; Start 11/01/18 at 18:00 Dextrose (D50w Syringe) 50 ml Q15M PRN IV .DECREASED GLUCOSE; Start 11/01/18 at 18:00 Dextrose (D50w Syringe) 25 ml Q15M PRN IV .DECREASED GLUCOSE; Start 11/01/18 at 18:00 IV Flush (NS 3 ml) 3 ml PER PROTOCOL IV ; Start 11/01/18 at 19:30 Acetaminophen/ Hydrocodone Bitart ([place] (5/325)) 2 tab Q6H PRN PO .SEVERE PAIN 7-10; Start 11/01/18 at 19:30 Heparin Sodium (Porcine) (Heparin (5000 Units/1ml)) 5,000 unit Q12 SC Last administered on 11/01/18at 21:18; Admin Dose 5,000 UNIT; Start 11/01/18 at 21:00 Diphenhydramine HCl (Benadryl) 25 mg Q6H PRN PO ITCHING Last administered on 11/01/18at 20:21; Admin Dose 25 MG; Start 11/01/18 at 19:30 Diphenhydramine HCl (Benadryl) 25 mg Q4H PRN IV ITCHING Last administered on 11/02/18at 04:30; Admin Dose 25 MG; Start 11/02/18 at 00:30 Ondansetron HCl (Zofran Inj) 4 mg Q4H PRN IV NAUSEA/VOMITING Last administered on 11/02/18at 04:30; Admin Dose 4 MG; Start 11/02/18 at 00:30 Allergies: Coded Allergies: amlodipine (Verified Allergy, Intermediate, swelling of lips, 11/01/18) nifedipine (Verified Allergy, Intermediate, 11/01/18) adhesive tape (Verified Allergy, Mild, 11/01/18) benazepril (Verified Allergy, Mild, 11/01/18) ketorolac (Verified Allergy, Mild, 11/01/18) latex (Verified Allergy, Mild, 11/01/18) metoclopramide (Verified Allergy, Mild, 11/01/18) morphine (Verified Allergy, Mild, 11/01/18) tramadol (Verified Allergy, Mild, 11/01/18) clindamycin (Verified Allergy, Unknown, 11/01/18) Past Surgical History Past Surgical Hx: no surgical history, other Social History Alcohol Use: none Smoking Status: Never smoker Drug Use: none Exam/Review of Systems Exam Vitals Vital Signs Date Temp Pulse Resp B/P (MAP) Pulse Ox O2 O2 Flow FiO2 Time Delivery Rate 11/02/18 78 16 148/89 100 Room Air 06:00 (108) 11/01/18 98.4 23:21 Intake and Output 11/01/18 11/01/18 11/02/18 1515:00 23:00 07:00 IntakeIntake Total 1927.5 ml BalanceBalance 1927.5 ml Results Result Diagram: 11/01/18 1718 11/02/18 0600 Results 24hrs Laboratory Tests Test 11/01/18 16:57 11/01/18 17:14 11/01/18 17:18 11/01/18 17:21 Blood Gas Blood venous Specimen Source Arterial Blood 11/01/2018 5:35:2 Date Drawn 9 PM Arterial Blood OTHER Gas Puncture Site [place] Test N/A Venous Blood pH 7.227 L Venous Blood 29.8 L pCO2 (Temp Corrected ) Venous Blood 53.8 H pO2 (Temp Corrected ) Venous Blood 12.1 L HCO3 Venous Blood 81.5 H Oxygen Saturation Venous Blood -14.2 L Base Excess Venous Blood 9.7 Total Hemoglobin Venous Blood 80.8 Oxyhemoglobin Venous Blood 0.4 Methemoglobin Blood Gas A-a 60.2 O2 Differential Carboxyhemoglob 0.5 in Blood Gas 37.0 Temperature Blood Gas ROOM AIR Modality FiO2 21.0 Blood Gas MDA Notified Whom Blood Gas 11/01/2018 5:39:1 Notified Time 5 PM Bedside Glucose 421 *H White Blood 7.0 # Count Red Blood Count 2.75 L Hemoglobin 8.3 L Hematocrit 26.3 L Mean 95.6 Corpuscular Volume Mean 30.2 Corpuscular Hemoglobin Mean 31.6 L Corpuscular Hemoglobin Conc ent Red Cell 17.4 H Distribution Width Platelet Count 179 Mean Platelet 10.0 Volume Immature 0.300 Granulocytes % Neutrophils % 79.9 H Lymphocytes % 5.0 L Monocytes % 11.2 H Eosinophils % 2.9 Basophils % 0.7 Nucleated Red 0.0 Blood Cells % Immature 0.020 Granulocytes # Neutrophils # 5.6 Lymphocytes # 0.4 L Monocytes # 0.8 Eosinophils # 0.2 Basophils # 0.1 Nucleated Red 0.0 Blood Cells # Sodium Level 137 Potassium Level 4.9 Chloride Level 103 Carbon Dioxide 12 L Level Anion Gap 22 H Blood Urea 41 H Nitrogen Creatinine 9.03 H Est Glomerular 5 L Filtrat Rate mL/min Glucose Level 438 *H Hemoglobin A1c 7.4 H Lactic Acid 1.0 Level Calcium Level 10.1 Serum HCG, NEGATIVE Qualitative Test 11/01/18 19:27 11/01/18 19:39 11/01/18 19:55 11/01/18 20:51 Bedside Glucose 421 *H 401 *H Sodium Level 139 Potassium Level 5.0 Chloride Level 103 Carbon Dioxide 11 L Level Anion Gap 25 H Blood Urea 39 H Nitrogen Creatinine 8.77 H Est Glomerular 5 L Filtrat Rate mL/min Glucose Level 437 *H Calcium Level 9.8 Phosphorus 4.0 Level Magnesium Level 2.4 Blood Gas Blood venous Specimen Source Arterial Blood 11/01/2018 7:39: Date Drawn 17 PM Arterial Blood VENOUS LINE Gas Puncture Site [place] Test N/A Venous Blood pH 7.191 *L Venous Blood 30.1 L pCO2 (Temp Corrected ) Venous Blood 54.7 H pO2 (Temp Corrected ) Venous Blood 11.3 L HCO3 Venous Blood 81.5 H Oxygen Saturation Venous Blood -15.6 L Base Excess Venous Blood 9.5 Total Hemoglobin Venous Blood 80.9 Oxyhemoglobin Venous Blood 0.4 Methemoglobin Carboxyhemoglob 0.3 in Blood Gas 37.0 Temperature Blood Gas ROOM AIR Modality FiO2 21.0 Blood Gas NORA, Critical Value RN Read Back Blood Gas MM Notified Whom Blood Gas 11/01/2018 7:46: Notified Time 10 PM Test 11/01/18 21:34 11/01/18 21:36 11/01/18 21:55 11/01/18 22:29 Sodium Level 140 Potassium Level 4.5 Chloride Level 106 Carbon Dioxide 14 L Level Anion Gap 20 H Blood Urea 41 H Nitrogen Creatinine 8.68 H Est Glomerular 5 L Filtrat Rate mL/min Glucose Level 353 H Calcium Level 9.7 Phosphorus 3.5 Level Magnesium Level 2.4 Bedside Glucose 356 H 274 H Blood Gas Blood venous Specimen Source Arterial Blood 11/01/2018 9:27: Date Drawn 26 PM Arterial Blood VENOUS LINE Gas Puncture Site [place] Test N/A Venous Blood pH 7.242 L Venous Blood 34.9 L pCO2 (Temp Corrected ) Venous Blood 51.1 H pO2 (Temp Corrected ) Venous Blood 14.7 L HCO3 Venous Blood 80.2 H Oxygen Saturation Venous Blood -11.7 L Base Excess Venous Blood 9.2 Total Hemoglobin Venous Blood 79.6 Oxyhemoglobin Venous Blood 0.5 Methemoglobin Carboxyhemoglob 0.3 in Blood Gas 37.0 Temperature Blood Gas ROOM AIR Modality FiO2 21.0 Blood Gas MM Notified Whom Blood Gas 11/01/2018 9:36: Notified Time 12 PM Test 11/01/18 23:35 11/02/18 00:31 11/02/18 01:28 11/02/18 01:55 Bedside Glucose 280 H 271 H 237 H Blood Gas Blood venous Specimen Source Arterial Blood 11/02/2018 2:50: Date Drawn 19 AM Arterial Blood VENOUS LINE Gas Puncture Site [place] Test N/A Venous Blood pH 7.232 L Venous Blood 48.4 H pCO2 (Temp Corrected ) Venous Blood 46.0 H pO2 (Temp Corrected ) Venous Blood 19.9 L HCO3 Venous Blood 74.1 Oxygen Saturation Venous Blood -7.3 L Base Excess Venous Blood 9.1 Total Hemoglobin Venous Blood 73.5 Oxyhemoglobin Venous Blood 0.4 Methemoglobin Carboxyhemoglob 0.4 in Blood Gas 37.0 Temperature Blood Gas 17 Actual Respiration Rat e Blood Gas ROOM AIR Modality FiO2 21.0 Blood Gas D [place] [facility] Notified Whom Blood Gas 11/02/2018 2:56: Notified Time 48 AM Test 11/02/18 02:32 11/02/18 02:43 11/02/18 03:36 11/02/18 04:34 Bedside Glucose 220 172 159 Sodium Level 141 Potassium Level 5.2 H Chloride Level 110 Carbon Dioxide 19 L Level Anion Gap 12 # Blood Urea 44 H Nitrogen Creatinine 8.41 H Est Glomerular 6 L Filtrat Rate mL/min Glucose Level 218 # Calcium Level 9.5 Phosphorus 3.1 Level Magnesium Level 2.4 Test 11/02/18 05:35 11/02/18 05:55 11/02/18 06:00 11/02/18 06:39 Bedside Glucose 139 101 Blood Gas Blood venous Specimen Source Arterial Blood 11/02/2018 5:50: Date Drawn 49 AM Arterial Blood VENOUS LINE Gas Puncture Site [place] Test N/A Venous Blood pH 7.266 L Venous Blood 42.2 pCO2 (Temp Corrected ) Venous Blood 45.2 H pO2 (Temp Corrected ) Venous Blood 18.8 L HCO3 Venous Blood 75.4 H Oxygen Saturation Venous Blood -7.7 L Base Excess Venous Blood 8.8 Total Hemoglobin Venous Blood 74.5 Oxyhemoglobin Venous Blood 0.6 Methemoglobin Carboxyhemoglob 0.6 in Blood Gas 37.0 Temperature Blood Gas 18 Actual Respiration Rat e Blood Gas ROOM AIR Modality FiO2 21.0 Blood Gas D [place] [facility] Notified Whom Blood Gas 11/02/2018 5:56: Notified Time 20 AM Sodium Level 142 Potassium Level 4.6 Chloride Level 111 H Carbon Dioxide 20 L Level Anion Gap 11 Blood Urea 42 H Nitrogen Creatinine 7.81 H Est Glomerular 6 L Filtrat Rate mL/min Glucose Level 125 # Calcium Level 8.8 Phosphorus 2.9 Level Magnesium Level 2.2 Medications Medication Current Medications Potassium Chloride/Sodium Chloride 1,000 ml @ 0 mls/hr Q0M IV ; Start 11/01/18 at 17:55 Potassium Chloride/Dextrose/ Sod Cl 1,000 ml @ 0 mls/hr Q0M IV ; Start 11/01/18 at 17:55 Potassium Chloride/Sodium Chloride 1,000 ml @ 0 mls/hr Q0M IV Last administered on 11/02/18at 01:09; Admin Dose 100 MLS/HR; Start 11/01/18 at 17:55 Potassium Chloride/Dextrose/ Sod Cl 1,000 ml @ 0 mls/hr Q0M IV Last administered on 11/02/18at 05:04; Admin Dose 250 MLS/HR; Start 11/01/18 at 17:55 Sodium Chloride 1,000 ml @ 0 mls/hr Q0M IV Last administered on 11/01/18at 18:29; Admin Dose 700 MLS/HR; Start 11/01/18 at 17:55 Dextrose/Sodium Chloride 1,000 ml @ 0 mls/hr Q0M IV ; Start 11/01/18 at 17:55 Insulin Human Regular 100 unit/ Sodium Chloride 101 ml @ 7.07 mls/hr ER DKA PROTOCOL IV Last administered on 11/01/18at 19:34; Admin Dose 7.07 MLS/HR; Start 11/01/18 at 18:00 Miscellaneous Information (* Miscellaneous Pharmacy Order) HYPOGLYCEMIA TREATMENT HYPOGLYCEM PROTOCOL PRN XX .HYPOGLYCEMIA PROTOCOL; Start 11/01/18 at 18:00 Dextrose (D50w Syringe) 50 ml Q15M PRN IV .DECREASED GLUCOSE; Start 11/01/18 at 18:00 Dextrose (D50w Syringe) 25 ml Q15M PRN IV .DECREASED GLUCOSE; Start 11/01/18 at 18:00 IV Flush (NS 3 ml) 3 ml PER PROTOCOL IV ; Start 11/01/18 at 19:30 Acetaminophen/ Hydrocodone Bitart ([place] (5/325)) 2 tab Q6H PRN PO .SEVERE PAIN 7-10; Start 11/01/18 at 19:30 Heparin Sodium (Porcine) (Heparin (5000 Units/1ml)) 5,000 unit Q12 SC Last administered on 11/01/18 21:18; Admin Dose 5,000 UNIT; Start 11/01/18 at 21:00 Diphenhydramine HCl (Benadryl) 25 mg Q6H PRN PO ITCHING Last administered on 11/01/18 20:21; Admin Dose 25 MG; Start 11/01/18 at 19:30 Diphenhydramine HCl (Benadryl) 25 mg Q4H PRN IV ITCHING Last administered on 11/02/18 04:30; Admin Dose 25 MG; Start 11/02/18 at 00:30 Ondansetron HCl (Zofran Inj) 4 mg Q4H PRN IV NAUSEA/VOMITING Last administered on 11/02/18 04:30; Admin Dose 4 MG; Start 11/02/18 at 00:30 ADOLPH COLEMAN DO November 02, 2018 07:20
[2018-11-02] MEDS ORDERED: HYDROmorphONE 0.5 MG/0.5 ML SYG IV PRN (08:30)
[2018-11-02] MEDS ORDERED: HYDROmorphONE 2 MG/ML SYG IV PRN (08:30)
--- NOTE | 2018-11-02 09:18 | PN ---
Date/Time of Note Date/Time of Note DATE: 11/02/18 TIME: 09:04 Assessment/Plan VTE Prophylaxis SCD applied (from Nsg): Yes Pharmacological prophylaxis: heparin Lines/Catheters IV Catheter Type (from Nrsg): Tremayne catheter Urinary Cath still in place: No Assessment/Plan Assessment/Plan 28 yo woman with type I diabetes, ESRD on MWF dialysis, diabetic gastroparesis and multiple allergies presents after recent admission with pain and nausea. #Type I diabetes -Continue current insulin regimen (lantus 12u qam, lispro 4u TIDWM) - Stopping insulin gtt and IV fluids. #Nausea/vomiting: - Chronic diabetic gastroparesis - PRN Tigan and zofran # HTN: - Well controlled last admission on home meds. - Continue labetalol, clonidine, spironolactone, losartan, and hydralazine. #ESRD - Last dialyzed 10/29 AM; apparently patient did not get dialysis after discharge - HD again today 11/02. - Continue scheduled HD per nephrology. #Right tib/fib fracture -orthopedics Dr. Babcock consulted -recommended for long leg brace with a dial lock - now in place. -For now keep limb immobile-continue leg brace that is now in place, ordered by orthopedic surgery team - Evaluated by [facility] last admission and declined. - Continue PO dilaudid as needed. Avoid reliance on IV opiates. #Mid back pain - Associated with fall, also with palpable tenderness and slight deformity of spine - No peripheral neuro findings concerning for cord compression or cauda equi na - CT negative for fracture DVT: heparin GI: PPI twice daily Result Diagram: 11/01/18 1718 11/02/18 0600 Subjective 24 Hr Interval Summary Free Text/Dictation Patient admitted last night on insulin gtt. Now transitioned onto subQ insulin. Still having nausea. Complains of continued discomfort and "heaviness" of the R leg brace. Getting dialysis this morning. Exam/Review of Systems Exam Vitals Vital Signs Date Temp Pulse Resp B/P (MAP) Pulse Ox O2 O2 Flow FiO2 Time Delivery Rate 11/02/18 82 08:00 11/02/18 16 148/89 100 Room Air 06:00 (108) 11/01/18 98.4 23:21 Intake and Output 11/01/18 11/01/18 11/02/18 1515:00 23:00 07:00 IntakeIntake Total 1927.5 ml BalanceBalance 1927.5 ml Exam General: Young woman lying in bed, answering questions appropriately HEENT: Atraumatic, normocephalic. Moist mucous membranes, clear oropharynx Neck: Supple with full range of motion. No rigidity or meningismus Chest: Right Tremayne cath Lungs: Clear to auscultation bilaterally no crackles rales or wheezing Heart: Normal S1-S2, Regular rhythm and rate. No murmur, S3, or S4 Abdomen: Soft , nontender, nondistended , bowel sounds are present. No guarding no rebound tenderness Extremities: Right lower extremity in brace, skin clean appearing, warm to touch, distal pulses palpable, no cyanosis noted Results Results 24hrs Laboratory Tests Test 11/01/18 16:57 11/01/18 17:14 11/01/18 17:18 11/01/18 17:21 Blood Gas Blood venous Specimen Source Arterial Blood 11/01/2018 5:35:2 Date Drawn 9 PM Arterial Blood OTHER Gas Puncture Site [place] Test N/A Venous Blood pH 7.227 L Venous Blood 29.8 L pCO2 (Temp Corrected ) Venous Blood 53.8 H pO2 (Temp Corrected ) Venous Blood 12.1 L HCO3 Venous Blood 81.5 H Oxygen Saturation Venous Blood -14.2 L Base Excess Venous Blood 9.7 Total Hemoglobin Venous Blood 80.8 Oxyhemoglobin Venous Blood 0.4 Methemoglobin Blood Gas A-a 60.2 O2 Differential Carboxyhemoglob 0.5 in Blood Gas 37.0 Temperature Blood Gas ROOM AIR Modality FiO2 21.0 Blood Gas [facility] Notified Whom Blood Gas 11/01/2018 5:39:1 Notified Time 5 PM Bedside Glucose 421 *H White Blood 7.0 # Count Red Blood Count 2.75 L Hemoglobin 8.3 L Hematocrit 26.3 L Mean 95.6 Corpuscular Volume Mean 30.2 Corpuscular Hemoglobin Mean 31.6 L Corpuscular Hemoglobin Conc ent Red Cell 17.4 H Distribution Width Platelet Count 179 Mean Platelet 10.0 Volume Immature 0.300 Granulocytes % Neutrophils % 79.9 H Lymphocytes % 5.0 L Monocytes % 11.2 H Eosinophils % 2.9 Basophils % 0.7 Nucleated Red 0.0 Blood Cells % Immature 0.020 Granulocytes # Neutrophils # 5.6 Lymphocytes # 0.4 L Monocytes # 0.8 Eosinophils # 0.2 Basophils # 0.1 Nucleated Red 0.0 Blood Cells # Sodium Level 137 Potassium Level 4.9 Chloride Level 103 Carbon Dioxide 12 L Level Anion Gap 22 H Blood Urea 41 H Nitrogen Creatinine 9.03 H Est Glomerular 5 L Filtrat Rate mL/min Glucose Level 438 *H Hemoglobin A1c 7.4 H Lactic Acid 1.0 Level Calcium Level 10.1 Serum HCG, NEGATIVE Qualitative Test 11/01/18 19:27 11/01/18 19:39 11/01/18 19:55 11/01/18 20:51 Bedside Glucose 421 *H 401 *H Sodium Level 139 Potassium Level 5.0 Chloride Level 103 Carbon Dioxide 11 L Level Anion Gap 25 H Blood Urea 39 H Nitrogen Creatinine 8.77 H Est Glomerular 5 L Filtrat Rate mL/min Glucose Level 437 *H Calcium Level 9.8 Phosphorus 4.0 Level Magnesium Level 2.4 Blood Gas Blood venous Specimen Source Arterial Blood 11/01/2018 7:39: Date Drawn 17 PM Arterial Blood VENOUS LINE Gas Puncture Site [place] Test N/A Venous Blood pH 7.191 *L Venous Blood 30.1 L pCO2 (Temp Corrected ) Venous Blood 54.7 H pO2 (Temp Corrected ) Venous Blood 11.3 L HCO3 Venous Blood 81.5 H Oxygen Saturation Venous Blood -15.6 L Base Excess Venous Blood 9.5 Total Hemoglobin Venous Blood 80.9 Oxyhemoglobin Venous Blood 0.4 Methemoglobin Carboxyhemoglob 0.3 in Blood Gas 37.0 Temperature Blood Gas ROOM AIR Modality FiO2 21.0 Blood Gas NORA, Critical Value RN Read Back Blood Gas MM Notified Whom Blood Gas 11/01/2018 7:46: Notified Time 10 PM Test 11/01/18 21:34 11/01/18 21:36 11/01/18 21:55 11/01/18 22:29 Sodium Level 140 Potassium Level 4.5 Chloride Level 106 Carbon Dioxide 14 L Level Anion Gap 20 H Blood Urea 41 H Nitrogen Creatinine 8.68 H Est Glomerular 5 L Filtrat Rate mL/min Glucose Level 353 H Calcium Level 9.7 Phosphorus 3.5 Level Magnesium Level 2.4 Bedside Glucose 356 H 274 H Blood Gas Blood venous Specimen Source Arterial Blood 11/01/2018 9:27: Date Drawn 26 PM Arterial Blood VENOUS LINE Gas Puncture Site [place] Test N/A Venous Blood pH 7.242 L Venous Blood 34.9 L pCO2 (Temp Corrected ) Venous Blood 51.1 H pO2 (Temp Corrected ) Venous Blood 14.7 L HCO3 Venous Blood 80.2 H Oxygen Saturation Venous Blood -11.7 L Base Excess Venous Blood 9.2 Total Hemoglobin Venous Blood 79.6 Oxyhemoglobin Venous Blood 0.5 Methemoglobin Carboxyhemoglob 0.3 in Blood Gas 37.0 Temperature Blood Gas ROOM AIR Modality FiO2 21.0 Blood Gas MM Notified Whom Blood Gas 11/01/2018 9:36: Notified Time 12 PM Test 11/01/18 23:35 11/02/18 00:31 11/02/18 01:28 11/02/18 01:55 Bedside Glucose 280 H 271 H 237 H Blood Gas Blood venous Specimen Source Arterial Blood 11/02/2018 2:50: Date Drawn 19 AM Arterial Blood VENOUS LINE Gas Puncture Site [place] Test N/A Venous Blood pH 7.232 L Venous Blood 48.4 H pCO2 (Temp Corrected ) Venous Blood 46.0 H pO2 (Temp Corrected ) Venous Blood 19.9 L HCO3 Venous Blood 74.1 Oxygen Saturation Venous Blood -7.3 L Base Excess Venous Blood 9.1 Total Hemoglobin Venous Blood 73.5 Oxyhemoglobin Venous Blood 0.4 Methemoglobin Carboxyhemoglob 0.4 in Blood Gas 37.0 Temperature Blood Gas 17 Actual Respiration Rat e Blood Gas ROOM AIR Modality FiO2 21.0 Blood Gas [facility] [employer] [facility] Notified Whom Blood Gas 11/02/2018 2:56: Notified Time 48 AM Test 11/02/18 02:32 11/02/18 02:43 11/02/18 03:36 11/02/18 04:34 Bedside Glucose 220 172 159 Sodium Level 141 Potassium Level 5.2 H Chloride Level 110 Carbon Dioxide 19 L Level Anion Gap 12 # Blood Urea 44 H Nitrogen Creatinine 8.41 H Est Glomerular 6 L Filtrat Rate mL/min Glucose Level 218 # Calcium Level 9.5 Phosphorus 3.1 Level Magnesium Level 2.4 Test 11/02/18 05:35 11/02/18 05:55 11/02/18 06:00 11/02/18 06:39 Bedside Glucose 139 101 Blood Gas Blood venous Specimen Source Arterial Blood 11/02/2018 5:50: Date Drawn 49 AM Arterial Blood VENOUS LINE Gas Puncture Site [place] Test N/A Venous Blood pH 7.266 L Venous Blood 42.2 pCO2 (Temp Corrected ) Venous Blood 45.2 H pO2 (Temp Corrected ) Venous Blood 18.8 L HCO3 Venous Blood 75.4 H Oxygen Saturation Venous Blood -7.7 L Base Excess Venous Blood 8.8 Total Hemoglobin Venous Blood 74.5 Oxyhemoglobin Venous Blood 0.6 Methemoglobin Carboxyhemoglob 0.6 in Blood Gas 37.0 Temperature Blood Gas 18 Actual Respiration Rat e Blood Gas ROOM AIR Modality FiO2 21.0 Blood Gas D [facility] Notified Whom Blood Gas 11/02/2018 5:56: Notified Time 20 AM Sodium Level 142 Potassium Level 4.6 Chloride Level 111 H Carbon Dioxide 20 L Level Anion Gap 11 Blood Urea 42 H Nitrogen Creatinine 7.81 H Est Glomerular 6 L Filtrat Rate mL/min Glucose Level 125 # Calcium Level 8.8 Phosphorus 2.9 Level Magnesium Level 2.2 Test 11/02/18 08:28 Bedside Glucose 97 Medications Medication Current Medications Miscellaneous Information (* Miscellaneous Pharmacy Order) HYPOGLYCEMIA TREATMENT HYPOGLYCEM PROTOCOL PRN XX .HYPOGLYCEMIA PROTOCOL; Start 11/01/18 at 18:00 Dextrose (D50w Syringe) 50 ml Q15M PRN IV .DECREASED GLUCOSE; Start 11/01/18 at 18:00 Dextrose (D50w Syringe) 25 ml Q15M PRN IV .DECREASED GLUCOSE; Start 11/01/18 at 18:00 IV Flush (NS 3 ml) 3 ml PER PROTOCOL IV ; Start 11/01/18 at 19:30 Acetaminophen/ Hydrocodone Bitart ([place] (5/325)) 2 tab Q6H PRN PO .SEVERE PAIN 7-10; Start 11/01/18 at 19:30 Heparin Sodium (Porcine) (Heparin (5000 Units/1ml)) 5,000 unit Q12 SC Last administered on 11/01/18at 21:18; Admin Dose 5,000 UNIT; Start 11/01/18 at 21:00 Diphenhydramine HCl (Benadryl) 25 mg Q4H PRN IV ITCHING Last administered on 11/02/18at 07:44; Admin Dose 25 MG; Start 11/02/18 at 00:30 Ondansetron HCl (Zofran Inj) 4 mg Q4H PRN IV NAUSEA/VOMITING Last administered on 11/02/18at 07:44; Admin Dose 4 MG; Start 11/02/18 at 00:30 Hydromorphone HCl (Dilaudid) 0.5 mg Q3H PRN IV SEVERE PAIN LEVEL 7-10 Last administered on 11/02/18at 08:49; Admin Dose 0.5 MG; Start 11/02/18 at 08:30 Hydromorphone HCl (Dilaudid) 4 mg Q4H PRN PO SEVERE PAIN LEVEL 7-10; Start 11/02/18 at 08:30 Diphenhydramine HCl (Benadryl) 50 mg Q4H PRN IV itching; Start 11/02/18 at 09:00; Status UNV Insulin Glargine (Lantus) 12 units DAILY@0800 SC ; Start 11/03/18 at 08:00; Status UNV Insulin Aspart (Novolog Insulin Pen) 4 unit WITH MEALS SC ; Start 11/02/18 at 11:30; Status UNV VINICIUS YAÑEZ MD November 02, 2018 09:14
[2018-11-02] MEDS: LABETALOL 200 MG TAB PO SCH ×2 (09:30→21:41)
[2018-11-02] MEDS ORDERED: LOPERAMIDE 2 MG CAP PO PRN (09:30)
[2018-11-02] MEDS: HEPARIN 5,000 UNIT/1 ML VIAL SC SCH ×2 (09:55→21:55)
[2018-11-02] MEDS ORDERED: GLUCAGON 1 MG INJ IM PRN (10:00)
[2018-11-02] MEDS ORDERED: GLUCOSE GEL 15 GRAM TUBE PO PRN ×2 (10:00)
[2018-11-02] MEDS ORDERED: CLONIDINE 0.3 MG/24 HR PATCH TRANSDERM SCH ×2 (10:00→20:00)
[2018-11-02] MEDS: LOSARTAN 50 MG TAB PO SCH ×2 (10:00→15:40)
[2018-11-02] MEDS: DEXTROSE 50% 50 ML SYRINGE IV PRN (10:04)
[2018-11-02] MEDS: hydrALAzine 20 MG INJ IV PRN ×2 (11:21→20:01)
[2018-11-02] MEDS: INSULIN ASPART [NOVOLOG] 3 ML PEN SC SCH ×3 (11:30→22:03)
[2018-11-02] MEDS: HYDROmorphONE 2 MG/ML SYG IV PRN ×3 (12:22→20:06)
[2018-11-02] MEDS: LABETALOL HCL 20MG INJ IV PRN (12:22)
[2018-11-02] MEDS: SUCRALFATE 1 GM TAB PO SCH ×3 (13:08→21:45)
[2018-11-02] MEDS: HYOSCYAMINE 0.125 MG SUBL TAB PO PRN (14:13)
[2018-11-02] MEDS: LORAZEPAM 2 MG INJ IV PRN (15:39)
[2018-11-02] MEDS: CALCIUM CARBONATE 500 MG CHEW TAB PO PRN (15:39)
[2018-11-02] MEDS: PANTOPRAZOLE (EC) 40 MG TAB PO SCH (18:06)
[2018-11-02] MEDS: ARTIFICIAL TEARS 15 ML OPH BOTH EYES PRN (19:05)
[2018-11-02] MEDS: SPIRONOLACTONE 50 MG TAB PO SCH (21:43)
[2018-11-03] VITALS (11 sets, daily range): BP systolic 107–186; BP diastolic 53–89; PULSE 67–89; RESP 17–19
[2018-11-03] MEDS: DIPHENHYDRAMINE 50 MG INJ IV PRN ×5 (00:14→17:53)
[2018-11-03] MEDS: ONDANSETRON 4 MG INJ IV PRN ×5 (00:15→20:20)
[2018-11-03] MEDS: HYDROmorphONE 2 MG/ML SYG IV PRN ×5 (00:15→20:20)
[2018-11-03] MEDS: ARTIFICIAL TEARS 15 ML OPH BOTH EYES PRN (04:19)
[2018-11-03] MEDS: PANTOPRAZOLE (EC) 40 MG TAB PO SCH (05:15)
[2018-11-03] MEDS ORDERED: ONDANSETRON 4 MG INJ IV STA (06:37)
--- NOTE | 2018-11-03 07:29 | PN ---
Date/Time of Note Date/Time of Note DATE: 11/03/18 TIME: 07:26 Assessment/Plan VTE Prophylaxis Risk score (from Nsg)>0 risk: 12 SCD applied (from Nsg): Yes Pharmacological prophylaxis: other Lines/Catheters IV Catheter Type (from Nrsg): Mid Line Urinary Cath still in place: No Assessment/Plan Hospital Course renal follow up was dialyzed yesterday without any incidents no significant event overnight EXAM Alert oriented Chronically ill appearing Comfortable, no distress Neck veins flat RRR Clear lungs Abdomen soft, somewhat tender to palpation RLE in immobilizer A/P: 28 yo female with h/o DMI with ESRD, blindness and recent admission for tib/fib fracture discharged a few days ago, now returns with continued nausea, malaise and pain in RLE ESRD: - will dialyze in 1-2 days. routine access care will be done Anemia of CKD: will check iron panel Suspected DKA: - continue insulin gtt until anion gap is closed - continue maintenance ivf as the patient has minimal po intake RLE fracture: - Pain control Result Diagram: 11/01/18 1718 11/02/18 2315 Results 24hrs Laboratory Tests Test 11/02/18 08:28 11/02/18 09:57 11/02/18 10:01 11/02/18 10:09 Bedside Glucose 97 40 *L 257 H Sodium Level 139 Potassium Level 4.9 Chloride Level 105 Carbon Dioxide Level 23 Anion Gap 11 Blood Urea Nitrogen 34 H Creatinine 6.57 H Est Glomerular Filtrat 7 L Rate mL/min Glucose Level 738 #*H Calcium Level 9.2 Phosphorus Level 2.7 Magnesium Level 2.2 Test 11/02/18 11:09 11/02/18 13:11 11/02/18 13:59 11/02/18 17:54 Bedside Glucose 128 119 Sodium Level 141 138 Potassium Level 4.1 5.2 H Chloride Level 113 H 103 # Carbon Dioxide Level 18 L 21 Anion Gap 10 14 H Blood Urea Nitrogen 16 # 19 Creatinine 3.19 #H 4.44 #H Est Glomerular Filtrat 17 L 12 L Rate mL/min Glucose Level 102 # 253 #H Calcium Level 8.0 L 9.4 Phosphorus Level 2.2 L 3.2 Magnesium Level 1.7 2.1 Test 11/02/18 18:08 11/02/18 21:49 5/4/19 23:15 11/03/18 02:24 Bedside Glucose 275 H 327 H 228 H Sodium Level 138 Potassium Level 4.8 Chloride Level 103 Carbon Dioxide Level 22 Anion Gap 13 Blood Urea Nitrogen 22 H Creatinine 4.83 H Est Glomerular Filtrat 11 L Rate mL/min Glucose Level 274 H Calcium Level 9.2 Phosphorus Level 3.2 Magnesium Level 2.1 Exam/Review of Systems Exam Vitals Vital Signs Date Temp Pulse Resp B/P (MAP) Pulse Ox O2 O2 Flow FiO2 Time Delivery Rate 11/03/18 97.5 82 18 186/89 98 07:23 (121) 11/02/18 Nasal 1.0 20:30 Cannula Intake and Output 11/02/18 11/02/18 11/03/18 1515:00 23:00 07:00 IntakeIntake Total 758 ml 0 ml 100 ml OutputOutput Total 2700 ml BalanceBalance -1942 ml 0 ml 100 ml Results Results 24hrs Laboratory Tests Test 11/02/18 08:28 11/02/18 09:57 11/02/18 10:01 11/02/18 10:09 Bedside Glucose 97 40 *L 257 H Sodium Level 139 Potassium Level 4.9 Chloride Level 105 Carbon Dioxide Level 23 Anion Gap 11 Blood Urea Nitrogen 34 H Creatinine 6.57 H Est Glomerular Filtrat 7 L Rate mL/min Glucose Level 738 #*H Calcium Level 9.2 Phosphorus Level 2.7 Magnesium Level 2.2 Test 11/02/18 11:09 11/02/18 13:11 11/02/18 13:59 11/02/18 17:54 Bedside Glucose 128 119 Sodium Level 141 138 Potassium Level 4.1 5.2 H Chloride Level 113 H 103 # Carbon Dioxide Level 18 L 21 Anion Gap 10 14 H Blood Urea Nitrogen 16 # 19 Creatinine 3.19 #H 4.44 #H Est Glomerular Filtrat 17 L 12 L Rate mL/min Glucose Level 102 # 253 #H Calcium Level 8.0 L 9.4 Phosphorus Level 2.2 L 3.2 Magnesium Level 1.7 2.1 Test 11/02/18 18:08 11/02/18 21:49 11/02/18 23:15 11/03/18 02:24 Bedside Glucose 275 H 327 H 228 H Sodium Level 138 Potassium Level 4.8 Chloride Level 103 Carbon Dioxide Level 22 Anion Gap 13 Blood Urea Nitrogen 22 H Creatinine 4.83 H Est Glomerular Filtrat 11 L Rate mL/min Glucose Level 274 H Calcium Level 9.2 Phosphorus Level 3.2 Magnesium Level 2.1 Medications Medication Current Medications IV Flush (NS 3 ml) 3 ml PER PROTOCOL IV ; Start 11/01/18 at 19:30 Acetaminophen/ Hydrocodone Bitart ([place] (5/325)) 2 tab Q6H PRN PO .SEVERE PAIN 7-10; Start 11/01/18 at 19:30 Heparin Sodium (Porcine) (Heparin (5000 Units/1ml)) 5,000 unit Q12 SC Last administered on 11/02/18 21:55; Admin Dose 5,000 UNIT; Start 11/01/18 at 21:00 Diphenhydramine HCl (Benadryl) 25 mg Q4H PRN IV ITCHING Last administered on 11/02/18 11:13; Admin Dose 25 MG; Start 11/02/18 at 00:30 Ondansetron HCl (Zofran Inj) 4 mg Q4H PRN IV NAUSEA/VOMITING Last administered on 11/03/18 04:18; Admin Dose 4 MG; Start 11/02/18 at 00:30 Hydromorphone HCl (Dilaudid) 4 mg Q4H PRN PO SEVERE PAIN LEVEL 7-10; Start 11/02/18 at 08:30 Diphenhydramine HCl (Benadryl) 50 mg Q4H PRN IV itching Last administered on 11/03/18 04:18; Admin Dose 50 MG; Start 11/02/18 at 09:00 Insulin Glargine (Lantus) 12 units DAILY@0800 SC ; Start 11/03/18 at 08:00 Insulin Aspart (Novolog Insulin Pen) 4 unit WITH MEALS SC ; Start 11/02/18 at 11:30 Calcium Carbonate (Tums) 500 mg Q2H PRN PO GASTROINTESTINAL UPSET Last administered on 11/02/18 15:39; Admin Dose 500 MG; Start 11/02/18 at 10:00 Clonidine (Catapres) 0.4 mg BID PO Last administered on 11/02/18 21:44; Admin Dose 0.4 MG; Start 11/02/18 at 21:00 Hydralazine HCl (Apresoline) 100 mg TID PO Last administered on 11/02/18 21:43; Admin Dose 100 MG; Start 11/02/18 at 13:00 Hyoscyamine (Levsin (Sl)) 0.125 mg Q8H PRN PO NAUSEA Last administered on 11/02/18 14:13; Admin Dose 0.125 MG; Start 11/02/18 at 09:30 Labetalol HCl (Normodyne) 1,200 mg BID PO Last administered on 11/02/18 21:41; Admin Dose 1,200 MG; Start 11/02/18 at 09:30 Loperamide HCl (Imodium Cap) 2 mg TID PRN PO DIARRHEA; Start 11/02/18 at 09:30 Losartan Potassium (Cozaar) 100 mg DAILY PO Last administered on 11/02/18 15:40; Admin Dose 100 MG; Start 11/02/18 at 10:00 Pantoprazole (Protonix Tab) 40 mg BID@0600,1800 PO Last administered on 11/03/18 05:15; Admin Dose 40 MG; Start 11/02/18 at 18:00 Spironolactone (Aldactone) 25 mg BID PO Last administered on 11/02/18 21:43; Admin Dose 25 MG; Start 11/02/18 at 21:00 Sucralfate (Carafate) 1 gm QID PO Last administered on 11/02/18 21:45; Admin Dose 1 GM; Start 11/02/18 at 13:00 Miscellaneous Information 1 ea NOTE XX ; Start 11/02/18 at 10:00 Glucose (Glutose) 15 gm Q15M PRN PO DECREASED GLUCOSE; Start 11/02/18 at 10:00 Glucose (Glutose) 22.5 gm Q15M PRN PO DECREASED GLUCOSE; Start 11/02/18 at 10:00 Dextrose (D50w Syringe) 25 ml Q15M PRN IV DECREASED GLUCOSE; Start 11/02/18 at 10:00 Dextrose (D50w Syringe) 50 ml Q15M PRN IV DECREASED GLUCOSE Last administered on 11/02/18at 10:04; Admin Dose 50 ML; Start 11/02/18 at 10:00 Glucagon (Glucagen) 1 mg Q15M PRN IM DECREASED GLUCOSE; Start 11/02/18 at 10:00 Glucose (Glutose) 15 gm Q15M PRN BUCCAL DECREASED GLUCOSE; Start 11/02/18 at 10:00 Hydralazine HCl (Apresoline) 20 mg Q6H PRN IV SBP>185 Last administered on 11/02/18 20:01; Admin Dose 20 MG; Start 11/02/18 at 11:30 Hydromorphone HCl (Dilaudid) 2 mg Q4H PRN IV SEVERE PAIN LEVEL 7-10 Last administered on 11/03/18 04:19; Admin Dose 2 MG; Start 11/02/18 at 12:00 Labetalol HCl (Labetalol) 20 mg Q4H PRN IV SBP>185 Last administered on 11/02/18 12:22; Admin Dose 20 MG; Start 11/02/18 at 12:00 Eye Lubricant (Artificial Tears Oph) 2 drop Q6H PRN BOTH EYES DRY EYES Last administered on 11/03/18 04:19; Admin Dose 2 DROP; Start 11/02/18 at 16:00 Lorazepam (Ativan) 1 mg Q8H PRN IV AGITATION/ANXIETY Last administered on 11/02/18 15:39; Admin Dose 1 MG; Start 11/02/18 at 14:30 Insulin Aspart (Novolog Insulin Pen) NOVOLOG *MILD* ALGORITHM WITH MEALS BEDTIME SC Last administered on 11/02/18 22:03; Admin Dose 4 UNIT; Start 11/02/18 at 21:00 Clonidine HCl (Catapres-Tts 3 Patch) 2 patch Q7D TRANSDERM Last administered on 11/02/18 22:54; Admin Dose 2 PATCH; Start 11/02/18 at 20:00 ADOLPH COLEMAN DO November 03, 2018 07:29
[2018-11-03] MEDS: INSULIN ASPART [NOVOLOG] 3 ML PEN SC SCH ×7 (08:21→20:24)
[2018-11-03] MEDS: HEPARIN 5,000 UNIT/1 ML VIAL SC SCH ×2 (08:22→20:22)
[2018-11-03] MEDS: SPIRONOLACTONE 50 MG TAB PO SCH ×2 (08:22→20:23)
[2018-11-03] MEDS: SUCRALFATE 1 GM TAB PO SCH ×4 (08:23→20:25)
[2018-11-03] MEDS: LABETALOL 200 MG TAB PO SCH ×2 (08:25→20:22)
[2018-11-03] MEDS: INSULIN GLARGINE [LANTus] (100 UNITS/ML) SYG SC SCH (10:30)
[2018-11-03] MEDS: LORAZEPAM 2 MG INJ IV PRN ×2 (11:19→20:21)
--- NOTE | 2018-11-03 14:50 | PN ---
Date/Time of Note Date/Time of Note DATE: 11/03/18 TIME: 14:44 Assessment/Plan VTE Prophylaxis Risk score (from Nsg)>0 risk: 10 SCD applied (from Nsg): No SCD contraindicated: other (tib/fib fracture) Pharmacological prophylaxis: heparin Lines/Catheters IV Catheter Type (from Nrsg): permacath Urinary Cath still in place: No Assessment/Plan Assessment/Plan 28 yo woman with type I diabetes, ESRD on MWF dialysis, diabetic gastroparesis and multiple allergies presents after recent admission with pain and nausea. #Type I diabetes -Continue current insulin regimen (lantus 12u qam, lispro 4u TIDWM) - Stopping insulin gtt and IV fluids. #Nausea/vomiting: - Chronic diabetic gastroparesis - PRN Tigan, zofran, and Levsin. - Continue PPI and carafate. - Today will retreat back to full liquid diet. Also added novasource. - Next would consider pro-motility drug like erythromycin (allergy to Reglan) - If none of the above work, sublingual Ativan might help. # HTN: - Well controlled last admission on home meds. - Continue labetalol, clonidine, spironolactone, losartan, and hydralazine. #ESRD - Last dialyzed 4/30 AM; apparently patient did not get dialysis after discharge - Continue scheduled HD per nephrology. #Right tib/fib fracture -orthopedics Dr. Babcock consulted -recommended for long leg brace with a dial l ock - now in place. -For now keep limb immobile-continue leg brace that is now in place, ordered by orthopedic surgery team - Evaluated by ARU last admission and declined. - Continue PO dilaudid as needed. Avoid reliance on IV opiates. #Mid back pain - Associated with fall, also with palpable tenderness and slight deformity of spine - No peripheral neuro findings concerning for cord compression or cauda equina - CT negative for fracture DVT: heparin GI: PPI twice daily Result Diagram: 11/03/1890311/03/18903 Subjective 24 Hr Interval Summary Free Text/Dictation Continues to have PO intolerance. Vomited today after breakfast. Otherwise no acute complaints. Exam/Review of Systems Exam Vitals Vital Signs Date Temp Pulse Resp B/P (MAP) Pulse Ox O2 O2 Flow FiO2 Time Delivery Rate 11/03/18 83 12:01 11/03/18 98.8 18 146/72 94 11:30 (96) 11/03/18 Nasal 1.0 08:30 Cannula Intake and Output 11/02/18 11/02/18 11/03/18 1414:59 22:59 06:59 IntakeIntake Total 1013 ml 0 ml 100 ml OutputOutput Total 2700 ml BalanceBalance -1687 ml 0 ml 100 ml Exam General: Young woman lying in bed, answering questions appropriately HEENT: Atraumatic, normocephalic. Moist mucous membranes, clear oropharynx Neck: Supple with full range of motion. No rigidity or meningismus Chest: Right Tremayne cath Lungs: Clear to auscultation bilaterally no crackles rales or wheezing Heart: Normal S1-S2, Regular rhythm and rate. No murmur, S3, or S4 Abdomen: Soft , nontender, nondistended , bowel sounds are present. No guarding no rebound tenderness Extremities: Right lower extremity in brace, skin clean appearing, warm to touch, distal pulses palpable, no cyanosis noted Results Results 24hrs Laboratory Tests Test 11/02/18 17:54 11/02/18 18:08 11/02/18 21:49 11/02/18 23:15 Sodium Level 138 138 Potassium Level 5.2 H 4.8 Chloride Level 103 # 103 Carbon Dioxide Level 21 22 Anion Gap 14 H 13 Blood Urea Nitrogen 19 22 H Creatinine 4.44 #H 4.83 H Est Glomerular Filtrat 12 L 11 L Rate mL/min Glucose Level 253 #H 274 H Calcium Level 9.4 9.2 Phosphorus Level 3.2 3.2 Magnesium Level 2.1 2.1 Bedside Glucose 275 H 327 H Test 11/03/18 02:24 11/03/18 08:05 11/03/18 09:04 11/03/18 10:23 Bedside Glucose 228 H 288 H 178 White Blood Count 5.7 Red Blood Count 3.05 L Hemoglobin 9.3 L Hematocrit 29.0 L Mean Corpuscular Volume 95.1 Mean Corpuscular 30.5 Hemoglobin Mean Corpuscular 32.1 Hemoglobin Concent Red Cell Distribution 17.6 H Width Platelet Count 160 Mean Platelet Volume 11.0 H Immature Granulocytes % 0.500 H Neutrophils % 75.4 Segmented Neutrophils 77 % (Manual) Lymphocytes % 7.5 L Lymphocytes % (Manual) 6 L Monocytes % 10.9 Monocytes % (Manual) 11 Eosinophils % 4.6 Eosinophils % (Manual) 5 Basophils % 1.1 Basophils % (Manual) 1 Nucleated Red Blood 0.0 Cells % Immature Granulocytes # 0.030 Neutrophils # 4.3 Lymphocytes (Manual) 0.3 L Lymphocytes # 0.4 L Monocytes # 0.6 Monocytes # (Manual) 0.6 Eosinophils # 0.3 Basophils # 0.1 Basophils # (Manual) 0.0 Nucleated Red Blood 0.0 Cells # Platelet Estimate NORMAL Giant Platelets 1 H Polychromasia 2+ Poikilocytosis 1+ Anisocytosis 2+ Ovalocytes 1+ Sodium Level 141 Potassium Level 5.3 H Chloride Level 104 Carbon Dioxide Level 21 Anion Gap 16 H Blood Urea Nitrogen 24 H Creatinine 5.43 H Est Glomerular Filtrat 9 L Rate mL/min Glucose Level 262 H Calcium Level 9.7 Phosphorus Level 4.1 Magnesium Level 2.2 Total Bilirubin 0.0 L Direct Bilirubin 0.00 Indirect Bilirubin 0.0 Aspartate Amino 24 Transf (AST/SGOT) Alanine < 6 L Aminotransferase (ALT/SG PT) Alkaline Phosphatase 170 H Total Protein 7.7 Albumin 4.2 Globulin 3.50 H Albumin/Globulin Ratio 1.20 Test 11/03/18 12:05 Bedside Glucose 138 Medications Medication Current Medications IV Flush (NS 3 ml) 3 ml PER PROTOCOL IV ; Start 11/01/18 at 19:30 Acetaminophen/ Hydrocodone Bitart ([place] (5/325)) 2 tab Q6H PRN PO .SEVERE PAIN 7-10; Start 11/01/18 at 19:30 Heparin Sodium (Porcine) (Heparin (5000 Units/1ml)) 5,000 unit Q12 SC Last ad ministered on 11/03/18 08:22; Admin Dose 5,000 UNIT; Start 11/01/18 at 21:00 Diphenhydramine HCl (Benadryl) 25 mg Q4H PRN IV ITCHING Last administered on 11/03/18 13:24; Admin Dose 25 MG; Start 11/02/18 at 00:30 Ondansetron HCl (Zofran Inj) 4 mg Q4H PRN IV NAUSEA/VOMITING Last administered on 11/03/18 13:24; Admin Dose 4 MG; Start 11/02/18 at 00:30 Hydromorphone HCl (Dilaudid) 4 mg Q4H PRN PO SEVERE PAIN LEVEL 7-10; Start 11/02/18 at 08:30 Diphenhydramine HCl (Benadryl) 50 mg Q4H PRN IV itching Last administered on 11/03/18 08:26; Admin Dose 50 MG; Start 11/02/18 at 09:00 Insulin Glargine (Lantus) 12 units DAILY@0800 SC Last administered on 11/03/18 10:30; Admin Dose 12 UNITS; Start 11/03/18 at 08:00 Insulin Aspart (Novolog Insulin Pen) 4 unit WITH MEALS SC Last administered on 11/03/18 12:15; Admin Dose 4 UNIT; Start 11/02/18 at 11:30 Calcium Carbonate (Tums) 500 mg Q2H PRN PO GASTROINTESTINAL UPSET Last administered on 11/02/18 15:39; Admin Dose 500 MG; Start 11/02/18 at 10:00 Clonidine (Catapres) 0.4 mg BID PO Last administered on 11/03/18 08:24; Admin Dose 0.4 MG; Start 11/02/18 at 21:00 Hydralazine HCl (Apresoline) 100 mg TID PO Last administered on 11/03/18 13:25; Admin Dose 100 MG; Start 11/02/18 at 13:00 Hyoscyamine (Levsin (Sl)) 0.125 mg Q8H PRN PO NAUSEA Last administered on 11/02/18 14:13; Admin Dose 0.125 MG; Start 11/02/18 at 09:30 Labetalol HCl (Normodyne) 1,200 mg BID PO Last administered on 11/03/18 08:25; Admin Dose 1,200 MG; Start 11/02/18 at 09:30 Loperamide HCl (Imodium Cap) 2 mg TID PRN PO DIARRHEA; Start 11/02/18 at 09:30 Losartan Potassium (Cozaar) 100 mg DAILY PO Last administered on 11/02/18 15:40; Admin Dose 100 MG; Start 11/02/18 at 10:00 Pantoprazole (Protonix Tab) 40 mg BID@0600,1800 PO Last administered on 11/03/18 05:15; Admin Dose 40 MG; Start 11/02/18 at 18:00 Spironolactone (Aldactone) 25 mg BID PO Last administered on 11/03/18at 08:22; Admin Dose 25 MG; Start 11/02/18 at 21:00 Sucralfate (Carafate) 1 gm QID PO Last administered on 11/03/18at 13:25; Admin Dose 1 GM; Start 11/02/18 at 13:00 Miscellaneous Information 1 ea NOTE XX ; Start 11/02/18 at 10:00 Glucose (Glutose) 15 gm Q15M PRN PO DECREASED GLUCOSE; Start 11/02/18 at 10:00 Glucose (Glutose) 22.5 gm Q15M PRN PO DECREASED GLUCOSE; Start 11/02/18 at 10:00 Dextrose (D50w Syringe) 25 ml Q15M PRN IV DECREASED GLUCOSE; Start 11/02/18 at 10:00 Dextrose (D50w Syringe) 50 ml Q15M PRN IV DECREASED GLUCOSE Last administered on 11/02/18at 10:04; Admin Dose 50 ML; Start 11/02/18 at 10:00 Glucagon (Glucagen) 1 mg Q15M PRN IM DECREASED GLUCOSE; Start 11/02/18 at 10:00 Glucose (Glutose) 15 gm Q15M PRN BUCCAL DECREASED GLUCOSE; Start 11/02/18 at 10:00 Hydralazine HCl (Apresoline) 20 mg Q6H PRN IV SBP>185 Last administered on 11/02/18at 20:01; Admin Dose 20 MG; Start 11/02/18 at 11:30 Hydromorphone HCl (Dilaudid) 2 mg Q4H PRN IV SEVERE PAIN LEVEL 7-10 Last administered on 11/03/18at 13:24; Admin Dose 2 MG; Start 11/02/18 at 12:00 Labetalol HCl (Labetalol) 20 mg Q4H PRN IV SBP>185 Last administered on 11/02/18at 12:22; Admin Dose 20 MG; Start 11/02/18 at 12:00 Eye Lubricant (Artificial Tears Oph) 2 drop Q6H PRN BOTH EYES DRY EYES Last administered on 11/03/18 04:19; Admin Dose 2 DROP; Start 11/02/18 at 16:00 Insulin Aspart (Novolog Insulin Pen) NOVOLOG *MILD* ALGORITHM WITH MEALS BEDTIME SC Last administered on 11/03/18at 08:21; Admin Dose 4 UNIT; Start 11/02/18 at 21:00 Clonidine HCl (Catapres-Tts 3 Patch) 2 patch Q7D TRANSDERM Last administered on 11/02/18at 22:54; Admin Dose 2 PATCH; Start 11/02/18 at 20:00 Lorazepam (Ativan) 1 mg Q4H PRN IV AGITATION/ANXIETY; Start 11/03/18 at 18:30 Trimethobenzamide HCl (Tigan) 200 mg Q6H PRN IM NAUSEA AND/OR VOMITING; Start 11/03/18 at 15:00 VINICIUS YAÑEZ MD November 03, 2018 14:50
[2018-11-03] MEDS ORDERED: TRIMETHOBENZAMIDE 100 MG/ML VIAL IM PRN (15:00)
[2018-11-03] MEDS: DEXTROSE 50% 50 ML SYRINGE IV PRN ×2 (17:05→20:16)
[2018-11-03] MEDS: PANTOPRAZOLE 40 MG INJ IV SCH (17:52)
[2018-11-04] VITALS (12 sets, daily range): BP systolic 123–159; BP diastolic 60–74; PULSE 70–76; RESP 18–20
[2018-11-04] MEDS: ONDANSETRON 4 MG INJ IV PRN ×5 (01:04→22:25)
[2018-11-04] MEDS: HYDROmorphONE 2 MG/ML SYG IV PRN ×3 (01:04→09:23)
[2018-11-04] MEDS: DIPHENHYDRAMINE 50 MG INJ IV PRN ×3 (01:04→09:23)
[2018-11-04] MEDS: LORAZEPAM 2 MG INJ IV PRN ×3 (03:24→22:25)
[2018-11-04] MEDS: PANTOPRAZOLE 40 MG INJ IV SCH ×2 (05:20→21:04)
[2018-11-04] MEDS: SPIRONOLACTONE 50 MG TAB PO SCH ×2 (07:55→21:04)
[2018-11-04] MEDS: SUCRALFATE 1 GM TAB PO SCH ×4 (07:55→21:06)
[2018-11-04] MEDS: CALCIUM CARBONATE 500 MG CHEW TAB PO PRN (07:56)
[2018-11-04] MEDS: LOSARTAN 50 MG TAB PO SCH (07:56)
[2018-11-04] MEDS: INSULIN ASPART [NOVOLOG] 3 ML PEN SC SCH ×5 (08:00→21:00)
[2018-11-04] MEDS: LABETALOL 200 MG TAB PO SCH ×2 (08:01→21:05)
[2018-11-04] MEDS: HEPARIN 5,000 UNIT/1 ML VIAL SC SCH ×2 (08:04→21:29)
[2018-11-04] MEDS: GLUCOSE GEL 15 GRAM TUBE BUCCAL PRN ×2 (08:13→17:39)
[2018-11-04] MEDS: INSULIN GLARGINE [LANTus] (100 UNITS/ML) SYG SC SCH (09:15)
--- NOTE | 2018-11-04 10:44 | PN ---
DATE: 11/04/2018 SUBJECTIVE: The patient is stable. No events overnight. No fevers, chills, nausea, or vomiting. OBJECTIVE: VITAL SIGNS: Blood pressure is 141/60, respirations 18, pulse 73, temperature 98.2. HEENT: Head is normocephalic. NECK: Supple. HEART: Regular rate. LUNGS: Show diminished breath sounds at the base. ABDOMEN: Soft, nontender to palpation without rebound or guarding. EXTREMITIES: Negative for clubbing, cyanosis, no edema. DERMATOLOGIC: No rashes. MUSCULOSKELETAL: No joint effusion. NEUROLOGIC: No change in exam. MEDICATIONS: Reviewed. LABORATORY DATA: Reviewed. ASSESSMENT AND PLAN: 1. End-stage renal disease. The patient's last hemodialysis was Sunday. Anticipate hemodialysis tomorrow. 2. Anemia. Continue to monitor hemoglobin and hematocrit levels. We will give Epogen as needed. 3. Mineral bone disorder, monitor calcium and phosphorus levels. 4. Hypertension, improving. Continue current blood pressure regimen. Continue ultrafiltration with hemodialysis. 5. Diabetes. Continue current insulin regimen. 6. Nausea and vomiting secondary to gastroparesis. Continue current medical management. 7. Right tibial fibular fracture. Continue conservative care. Continue leg raise. 8. Hyperkalemia, resolved. Dictated By: JUJU MARTINEZ DO NR/NTS Conf#: [id number] DID#: [id number] CC: NAYAN WILLIS; JOSE LANDIS MD; JERAMIE KEE MD;*EndCC*
--- NOTE | 2018-11-04 11:20 | PN ---
Date/Time of Note Date/Time of Note DATE: 11/04/18 TIME: 11:19 Assessment/Plan VTE Prophylaxis Risk score (from Ns)>0 risk: 9 SCD applied (from Ns): No SCD contraindicated: other Pharmacological prophylaxis: heparin Lines/Catheters IV Catheter Type (from Nrs): Saline Lock Urinary Cath still in place: No Assessment/Plan Hospital Course S: Patient still with nausea, seen by renal team this morning. Tolerating liquid diet. O: VS - see below PE: General: lying in bed, answering questions appropriately HEENT: Atraumatic, normocephalic. Moist mucous membranes, clear oropharynx Neck: Supple with full range of motion. No rigidity or meningismus Chest: Right Tremayne cath Lungs: Clear to auscultation bilaterally no crackles rales or wheezing Heart: Normal S1-S2, Regular rhythm and rate. No murmur, S3, or S4 Abdomen: Soft , nontender, nondistended , bowel sounds are present. No guarding no rebound tenderness Extremities: Right lower extremity in brace, skin clean appearing, warm to touch, distal pulses palpable, no cyanosis noted Assessment/Plan: 28 yo woman with type I diabetes, ESRD on MWF dialysis, diabetic gastroparesis and multiple allergies presents after recent admission with high blood sugars, pain and nausea. #Type I diabetes: Patient has longstanding uncontrolled type 1 DM diagnosed at age 6 complicated by retinopathy, neuropathy and ESRD. Latest A1c equals 7.4. Patient admitted at this time with mild DKA, now resolved and actually has been hypoglycemic this morning. -We will hold short acting insulin with meals, continue sliding scale insulin and Lantus 12 units every morning for now - we will also obtain endocrinology consult since they saw them extensively last time given patient's history #Nausea/vomiting: - Chronic diabetic gastroparesis -For now continue PRN Tigan, increased dose of Zofran, and Levsin. - Continue PPI and carafate. -For now continue full liquid diet. We will get speech eval. -If not improved, consider pro-motility drug like erythromycin (allergy to Reglan) # HTN- Well controlled last admission on home meds. - Continue p.o. labetalol, clonidine, spironolactone, losartan, and hydralazine. -Continue IV as needed anti-hypertensive medicines as well #ESRD-renal team on the case - Continue scheduled HD per nephrology. #Right tib/fib fracture-orthopedics Dr. Babcock consulted -recommended for long leg brace with a dial lock - now in place. -For now keep limb immobile-continue leg brace that is now in place, ordered by orthopedic surgery team - Evaluated by ARU last admission and declined. - Continue PO dilaudid as needed. Avoid reliance on IV opiates. -We will also get PT eval DVT: heparin GI: PPI twice daily Result Diagram: 11/04/18 0451 11/04/18 0922 Results 24hrs Laboratory Tests Test 11/03/18 12:05 11/03/18 16:52 11/03/18 17:04 11/03/18 17:16 Bedside Glucose 138 20 *L 115 Glucose Level 86 # Test 11/03/18 20:12 11/03/18 20:37 11/04/18 04:51 11/04/18 07:41 Bedside Glucose 37 *L 96 51 L White Blood Count 4.5 #L Red Blood Count 2.68 L Hemoglobin 8.1 L Hematocrit 25.6 L Mean Corpuscular Volume 95.5 Mean Corpuscular 30.2 Hemoglobin Mean Corpuscular 31.6 L Hemoglobin Concent Red Cell Distribution 17.2 H Width Platelet Count 186 Mean Platelet Volume 10.2 Immature Granulocytes % 0.400 Neutrophils % 61.5 Lymphocytes % 11.7 L Monocytes % 18.4 H Eosinophils % 6.7 Basophils % 1.3 Nucleated Red Blood 0.0 Cells % Immature Granulocytes # 0.020 Neutrophils # 2.7 Lymphocytes # 0.5 L Monocytes # 0.8 Eosinophils # 0.3 Basophils # 0.1 Nucleated Red Blood 0.0 Cells # Sodium Level 140 Potassium Level 4.8 Chloride Level 105 Carbon Dioxide Level 25 Anion Gap 10 # Blood Urea Nitrogen 25 H Creatinine 6.77 H Est Glomerular Filtrat 7 L Rate mL/min Glucose Level 68 #L Calcium Level 9.3 Phosphorus Level 4.2 Magnesium Level 2.3 Test 11/04/18 07:58 11/04/18 08:11 11/04/18 08:27 11/04/18 08:41 Bedside Glucose 55 L 59 L 70 93 Test 11/04/18 08:58 11/04/18 09:22 Bedside Glucose 103 Glucose Level 95 Exam/Review of Systems Exam Vitals Vital Signs Date Temp Pulse Resp B/P (MAP) Pulse Ox O2 O2 Flow FiO2 Time Delivery Rate 11/04/18 Nasal 1.0 08:10 Cannula 11/04/18 75 08:01 11/04/18 98.2 18 141/60 100 07:08 (87) Intake and Output 11/03/18 11/03/18 11/04/18 1515:00 23:00 07:00 IntakeIntake Total 500 ml 200 ml BalanceBalance 500 ml 200 ml Results Results 24hrs Laboratory Tests Test 11/03/18 12:05 11/03/18 16:52 11/03/18 17:04 11/03/18 17:16 Bedside Glucose 138 20 *L 115 Glucose Level 86 # Test 11/03/18 20:12 11/03/18 20:37 11/04/18 04:51 11/04/18 07:41 Bedside Glucose 37 *L 96 51 L White Blood Count 4.5 #L Red Blood Count 2.68 L Hemoglobin 8.1 L Hematocrit 25.6 L Mean Corpuscular Volume 95.5 Mean Corpuscular 30.2 Hemoglobin Mean Corpuscular 31.6 L Hemoglobin Concent Red Cell Distribution 17.2 H Width Platelet Count 186 Mean Platelet Volume 10.2 Immature Granulocytes % 0.400 Neutrophils % 61.5 Lymphocytes % 11.7 L Monocytes % 18.4 H Eosinophils % 6.7 Basophils % 1.3 Nucleated Red Blood 0.0 Cells % Immature Granulocytes # 0.020 Neutrophils # 2.7 Lymphocytes # 0.5 L Monocytes # 0.8 Eosinophils # 0.3 Basophils # 0.1 Nucleated Red Blood 0.0 Cells # Sodium Level 140 Potassium Level 4.8 Chloride Level 105 Carbon Dioxide Level 25 Anion Gap 10 # Blood Urea Nitrogen 25 H Creatinine 6.77 H Est Glomerular Filtrat 7 L Rate mL/min Glucose Level 68 #L Calcium Level 9.3 Phosphorus Level 4.2 Magnesium Level 2.3 Test 11/04/18 07:58 11/04/18 08:11 11/04/18 08:27 11/04/18 08:41 Bedside Glucose 55 L 59 L 70 93 Test 11/04/18 08:58 11/04/18 09:22 Bedside Glucose 103 Glucose Level 95 Medications Medication Current Medications IV Flush (NS 3 ml) 3 ml PER PROTOCOL IV ; Start 11/01/18 at 19:30 Heparin Sodium (Porcine) (Heparin (5000 Units/1ml)) 5,000 unit Q12 SC Last administered on 11/04/18 08:04; Admin Dose 5,000 UNIT; Start 11/01/18 at 21:00 Hydromorphone HCl (Dilaudid) 4 mg Q4H PRN PO SEVERE PAIN LEVEL 7-10; Start 11/02/18 at 08:30 Insulin Glargine (Lantus) 12 units DAILY@0800 SC Last administered on 11/04/18 09:15; Admin Dose 12 UNITS; Start 11/03/18 at 08:00 Calcium Carbonate (Tums) 500 mg Q2H PRN PO GASTROINTESTINAL UPSET Last administered on 11/04/18 07:56; Admin Dose 500 MG; Start 11/02/18 at 10:00 Clonidine (Catapres) 0.4 mg BID PO Last administered on 11/04/18 07:56; Admin Dose 0.4 MG; Start 11/02/18 at 21:00 Hydralazine HCl (Apresoline) 100 mg TID PO Last administered on 11/04/18 07:55; Admin Dose 100 MG; Start 11/02/18 at 13:00 Hyoscyamine (Levsin (Sl)) 0.125 mg Q8H PRN PO NAUSEA Last administered on 11/02/18 14:13; Admin Dose 0.125 MG; Start 11/02/18 at 09:30 Labetalol HCl (Normodyne) 1,200 mg BID PO Last administered on 11/04/18 08:01; Admin Dose 1,200 MG; Start 11/02/18 at 09:30 Loperamide HCl (Imodium Cap) 2 mg TID PRN PO DIARRHEA; Start 11/02/18 at 09:30 Losartan Potassium (Cozaar) 100 mg DAILY PO Last administered on 11/04/18 07:56; Admin Dose 100 MG; Start 11/02/18 at 10:00 Spironolactone (Aldactone) 25 mg BID PO Last administered on 11/04/18 07:55; Admin Dose 25 MG; Start 11/02/18 at 21:00 Sucralfate (Carafate) 1 gm QID PO Last administered on 11/04/18 07:55; Admin Dose 1 GM; Start 11/02/18 at 13:00 Miscellaneous Information 1 ea NOTE XX ; Start 11/02/18 at 10:00 Glucose (Glutose) 15 gm Q15M PRN PO DECREASED GLUCOSE; Start 11/02/18 at 10:00 Glucose (Glutose) 22.5 gm Q15M PRN PO DECREASED GLUCOSE; Start 11/02/18 at 10:00 Dextrose (D50w Syringe) 25 ml Q15M PRN IV DECREASED GLUCOSE Last administered on 11/03/18at 20:16; Admin Dose 25 ML; Start 11/02/18 at 10:00 Dextrose (D50w Syringe) 50 ml Q15M PRN IV DECREASED GLUCOSE Last administered on 11/03/18at 17:05; Admin Dose 50 ML; Start 11/02/18 at 10:00 Glucagon (Glucagen) 1 mg Q15M PRN IM DECREASED GLUCOSE; Start 11/02/18 at 10:00 Glucose (Glutose) 15 gm Q15M PRN BUCCAL DECREASED GLUCOSE Last administered on 11/04/18 08:13; Admin Dose 15 GM; Start 11/02/18 at 10:00 Hydralazine HCl (Apresoline) 20 mg Q6H PRN IV SBP>185 Last administered on 11/02/18at 20:01; Admin Dose 20 MG; Start 11/02/18 at 11:30 Labetalol HCl (Labetalol) 20 mg Q4H PRN IV SBP>185 Last administered on 11/02/18at 12:22; Admin Dose 20 MG; Start 11/02/18 at 12:00 Eye Lubricant (Artificial Tears Oph) 2 drop Q6H PRN BOTH EYES DRY EYES Last administered on 11/03/18 04:19; Admin Dose 2 DROP; Start 11/02/18 at 16:00 Insulin Aspart (Novolog Insulin Pen) NOVOLOG *MILD* ALGORITHM WITH MEALS BEDTIME SC Last administered on 11/03/18 08:21; Admin Dose 4 UNIT; Start 11/02/18 at 21:00 Clonidine HCl (Catapres-Tts 3 Patch) 2 patch Q7D TRANSDERM Last administered on 11/02/18at 22:54; Admin Dose 2 PATCH; Start 11/02/18 at 20:00 Trimethobenzamide HCl (Tigan) 200 mg Q6H PRN IM NAUSEA AND/OR VOMITING; Start 11/03/18 at 15:00 Pantoprazole (Protonix Iv) 40 mg BID@06,18 IV Last administered on 11/04/18at 05:20; Admin Dose 40 MG; Start 11/03/18 at 18:00 Epoetin Vic-epbx (RETACRIT(esrd)) 10,000 unit MoWeFr@1700 SC ; Start 11/04/18 at 17:00 Lorazepam (Ativan) 1 mg Q8H PRN IV AGITATION/ANXIETY; Start 11/04/18 at 18:30; Status UNV Diphenhydramine HCl (Benadryl) 25 mg Q6H PRN PO ITCHING; Start 11/04/18 at 11:30; Status UNV Ondansetron HCl (Zofran Inj) 8 mg Q4H PRN IV NAUSEA/VOMITING; Start 11/04/18 at 12:30; Status UNV NAYAN WILLIS November 04, 2018 11:20
[2018-11-04] MEDS ORDERED: DIPHENHYDRAMINE 25 MG CAP PO PRN (11:30)
[2018-11-04] MEDS: HYOSCYAMINE 0.125 MG SUBL TAB PO PRN (12:10)
[2018-11-04] MEDS: HYDROmorphONE 1 MG/ML SYG IV PRN ×2 (13:13→21:06)
[2018-11-04] MEDS ORDERED: ERGOCALCIFEROL (8000 UNITS/ML PO SYG) PO ONE (14:00)
[2018-11-04] MEDS: HYDROmorphONE 2 MG TAB PO PRN (17:10)
[2018-11-04] MEDS: ERYTHROMYCIN BASE (DR) 250 MG CAP PO SCH ×2 (17:11→21:05)
[2018-11-04] MEDS: EPOETIN ALFA-EPBX (ESRD) 10,000 UNIT/ML VIAL SC SCH (17:12)
[2018-11-04] MEDS: DEXTROSE 50% 50 ML SYRINGE IV PRN (18:07)
--- NOTE | 2018-11-04 18:12 | CONS ---
Assessment/Plan Assessment/Plan Problems: (1) Diabetes mellitus type 1 with complications Onset Date: ~ 10/1996 Status: Chronic Comment: Patient is on a lower dose of insulin at home and she has been receiving here. I will adjust the dosing on the medication. (2) ESRD on dialysis Status: Acute Comment: As per nephrology (3) Secondary hyperparathyroidism of renal origin Status: Chronic Comment: Noted. Trying to bring the vitamin D levels up, consider Sensipar (4) Diabetic retinopathy associated with type 1 diabetes mellitus Status: Chronic Comment: Poor vision Qualifiers: Qualified Codes: E10.3593 - Type 1 diabetes mellitus with proliferative diabetic retinopathy without macular edema, bilateral (5) Diabetic peripheral neuropathy associated with type 1 diabetes mellitus Status: Chronic Comment: Noted. (6) Vitamin D deficiency Status: Chronic Comment: Being replaced. (7) Uncontrolled hypertension Status: Acute Comment: Now on multiple medications. Consultation Date/Type/Reason Admit Date/Time November 01, 2018 Date of Consultation: November 04, 2018 Type of Consult Endocrine Reason for Consultation Beatties mellitus type I with end-stage renal disease; retinopathy; peripheral neuropathy; admitted with sugar out of control Requesting Provider: NAYAN WILLIS Date/Time of Note DATE: 11/04/18 TIME: 18:02 Hx of Present Illness 28-year-old single female with long history of diabetes mellitus type 1 with multiple complications. She had been discharged home but had issues with being able to obtain her supplies. She is readmitted and we are asked to see her on hospital day 3 to assist with her care. She is having hypoglycemic reactions Constitutional: no complaints Eyes: no complaints Respiratory: no complaints (Move) Cardiovascular: no complaints Gastrointestinal: no complaints Genitourinary: no complaints Musculoskeletal: no complaints Past Medical History Medical History: diabetes (End-stage renal disease; retinopathy; peripheral neuropathy; autonomic neuropathy), GERD, high cholesterol, hypertension, renal disease (End-stage renal disease due to diabetes mellitus type 1) Home Meds Active Scripts Pantoprazole* (Pantoprazole*) 40 Mg Tablet.dr, 40 MG PO BID, #60 TAB Prov:VINICIUS YAÑEZ MD 10/29/18 Sucralfate (Carafate) 1 Gm Tablet, 1 GM PO QID, #60 TAB Prov:VINICIUS YAÑEZ MD 10/29/18 Losartan Potassium* (Cozaar*) 50 Mg Tablet, 100 MG PO DAILY, #60 TAB Prov:VINICIUS YAÑZE MD 10/29/18 Hyoscyamine Sulfate* (Hyoscyamine Sulfate*) 0.125 Mg Tab.subl, 0.125 MG PO Q8 PRN for NAUSEA, #60 TAB Prov:VINICIUS YAÑEZ MD 10/29/18 Hydralazine Hcl* (Hydralazine Hcl*) 50 Mg Tab, 100 MG PO TID, #180 TAB Prov:VINICIUS YAÑEZ MD 10/29/18 Reported Medications Loperamide Hcl* (Imodium*) 2 Mg Capsule, 2 MG PO TID PRN for DIARRHEA, CAP MAX 16 mg/day 10/21/18 Insulin Glargine* (Lantus*) 100 Unit/Ml Soln, 10 UNIT SC DAILY, #1 VIAL 10/21/18 Insulin Lispro (Humalog) 100 Unit/1 Ml Cartridge, 0 SQ SLIDING SCALE 5-15 U, EA 10/21/18 Lorazepam* (Lorazepam*) 0.5 Mg Tablet, 0.5 MG PO Q6 PRN for AGITATION/ANXIETY, TAB 10/21/18 Calcium Carbonate* (Tums X-Str) 300 Mg Tab.chew, 300 MG PO Q2H PRN for GASTROINTESTINAL UPSET, TAB.CHEW 10/21/18 Clonidine Hcl* (Clonidine Hcl*) 0.3 Mg Tablet, 0.4 MG PO BID, TAB 10/21/18 Spironolactone* (Spironolactone*) 100 Mg Tablet, 25 MG PO BID, TAB 10/21/18 Labetalol Hcl (Normodyne) 200 Mg Tablet, 1200 MG PO BID, TAB 10/21/18 Hydromorphone Hcl (Dilaudid) 2 Mg Tab, 2 MG PO Q4 PRN for PAIN, TAB 10/21/18 Clonidine Patch (CLONIDINE PATCH) 0.3 Mg/24 Hr Patch, 2 PATCH.WK TD Q7D, #4 PATCH.WK 10/21/18 Discontinued Reported Medications Pantoprazole (Protonix) 40 Mg Tabec, 40 MG PO BID, TAB 10/21/18 Medications Current Medications IV Flush (NS 3 ml) 3 ml PER PROTOCOL IV ; Start 11/01/18 at 19:30 Heparin Sodium (Porcine) (Heparin (5000 Units/1ml)) 5,000 unit Q12 SC Last administered on 11/04/18 08:04; Admin Dose 5,000 UNIT; Start 11/01/18 at 21:00 Hydromorphone HCl (Dilaudid) 4 mg Q4H PRN PO SEVERE PAIN LEVEL 7-10 Last administered on 11/04/18 17:10; Admin Dose 4 MG; Start 11/02/18 at 08:30 Calcium Carbonate (Tums) 500 mg Q2H PRN PO GASTROINTESTINAL UPSET Last ad ministered on 11/04/18 07:56; Admin Dose 500 MG; Start 11/02/18 at 10:00 Clonidine (Catapres) 0.4 mg BID PO Last administered on 11/04/18 07:56; Admin Dose 0.4 MG; Start 11/02/18 at 21:00 Hydralazine HCl (Apresoline) 100 mg TID PO Last administered on 11/04/18 12:06; Admin Dose 100 MG; Start 11/02/18 at 13:00 Hyoscyamine (Levsin (Sl)) 0.125 mg Q8H PRN PO NAUSEA Last administered on 11/04/18 12:10; Admin Dose 0.125 MG; Start 11/02/18 at 09:30 Labetalol HCl (Normodyne) 1,200 mg BID PO Last administered on 11/04/18 08:01; Admin Dose 1,200 MG; Start 11/02/18 at 09:30 Loperamide HCl (Imodium Cap) 2 mg TID PRN PO DIARRHEA; Start 11/02/18 at 09:30 Losartan Potassium (Cozaar) 100 mg DAILY PO Last administered on 11/04/18 07:56; Admin Dose 100 MG; Start 11/02/18 at 10:00 Spironolactone (Aldactone) 25 mg BID PO Last administered on 11/04/18 07:55; Admin Dose 25 MG; Start 11/02/18 at 21:00 Sucralfate (Carafate) 1 gm QID PO Last administered on 11/04/18 17:11; Admin Dose 1 GM; Start 11/02/18 at 13:00; Stop 11/16/18 at 12:59 Miscellaneous Information 1 ea NOTE XX ; Start 11/02/18 at 10:00 Glucose (Glutose) 15 gm Q15M PRN PO DECREASED GLUCOSE; Start 11/02/18 at 10:00 Glucose (Glutose) 22.5 gm Q15M PRN PO DECREASED GLUCOSE; Start 11/02/18 at 10:00 Dextrose (D50w Syringe) 25 ml Q15M PRN IV DECREASED GLUCOSE Last administered on 11/03/18 20:16; Admin Dose 25 ML; Start 11/02/18 at 10:00 Dextrose (D50w Syringe) 50 ml Q15M PRN IV DECREASED GLUCOSE Last administered on 11/03/18 17:05; Admin Dose 50 ML; Start 11/02/18 at 10:00 Glucagon (Glucagen) 1 mg Q15M PRN IM DECREASED GLUCOSE; Start 11/02/18 at 10:00 Glucose (Glutose) 15 gm Q15M PRN BUCCAL DECREASED GLUCOSE Last administered on 11/04/18 17:39; Admin Dose 15 GM; Start 11/02/18 at 10:00 Hydralazine HCl (Apresoline) 20 mg Q6H PRN IV SBP>185 Last administered on 11/02/18 20:01; Admin Dose 20 MG; Start 11/02/18 at 11:30 Labetalol HCl (Labetalol) 20 mg Q4H PRN IV SBP>185 Last administered on 11/02/18 12:22; Admin Dose 20 MG; Start 11/02/18 at 12:00 Eye Lubricant (Artificial Tears Oph) 2 drop Q6H PRN BOTH EYES DRY EYES Last administered on 11/03/18 04:19; Admin Dose 2 DROP; Start 11/02/18 at 16:00 Insulin Aspart (Novolog Insulin Pen) NOVOLOG *MILD* ALGORITHM WITH MEALS BEDTIME SC Last administered on 11/03/18 08:21; Admin Dose 4 UNIT; Start 11/02/18 at 21:00 Clonidine HCl (Catapres-Tts 3 Patch) 2 patch Q7D TRANSDERM Last administered on 11/02/18 22:54; Admin Dose 2 PATCH; Start 11/02/18 at 20:00 Trimethobenzamide HCl (Tigan) 200 mg Q6H PRN IM NAUSEA AND/OR VOMITING Last administered on 11/04/18 12:09; Admin Dose 200 MG; Start 11/03/18 at 15:00 Pantoprazole (Protonix Iv) 40 mg BID@06,18 IV Last administered on 11/04/18 05:20; Admin Dose 40 MG; Start 11/03/18 at 18:00 Epoetin Vic-epbx (RETACRIT(esrd)) 10,000 unit MoWeFr@1700 SC Last administered on 11/04/18 17:12; Admin Dose 10,000 UNIT; Start 11/04/18 at 17:00 Diphenhydramine HCl (Benadryl) 25 mg Q6H PRN PO ITCHING; Start 11/04/18 at 11:30 Ondansetron HCl (Zofran Inj) 8 mg Q4H PRN IV NAUSEA/VOMITING Last administered on 11/04/18 13:13; Admin Dose 8 MG; Start 11/04/18 at 12:30 Hydromorphone HCl (Dilaudid) 1 mg Q8H PRN IV SEVERE PAIN LEVEL 7-10 Last administered on 11/04/18at 13:13; Admin Dose 1 MG; Start 11/04/18 at 12:30 Lorazepam (Ativan) 1 mg Q8H PRN IV AGITATION/ANXIETY Last administered on 11/04/18 14:32; Admin Dose 1 MG; Start 11/04/18 at 14:30 Erythromycin (Erythromycin) 250 mg TID PO Last administered on 11/04/18at 17:11; Admin Dose 250 MG; Start 11/04/18 at 15:00 Insulin Glargine (Lantus) 10 units DAILY@0800 SC ; Start 11/05/18 at 08:00; Status UNV Allergies: Coded Allergies: amlodipine (Verified Allergy, Intermediate, swelling of lips, 11/01/18) nifedipine (Verified Allergy, Intermediate, 11/01/18) adhesive tape (Verified Allergy, Mild, 11/01/18) benazepril (Verified Allergy, Mild, 11/01/18) ketorolac (Verified Allergy, Mild, 11/01/18) latex (Verified Allergy, Mild, 11/01/18) metoclopramide (Verified Allergy, Mild, 11/01/18) morphine (Verified Allergy, Mild, 11/01/18) tramadol (Verified Allergy, Mild, 11/01/18) clindamycin (Verified Allergy, Unknown, 11/01/18) Past Surgical History Past Surgical Hx: no surgical history, other Family History Significant Family History: no pertinent family hx Social History Alcohol Use: none Smoking Status: Never smoker Drug Use: none Exam/Review of Systems Exam Vitals Vital Signs Date Temp Pulse Resp B/P (MAP) Pulse Ox O2 O2 Flow FiO2 Time Delivery Rate 11/04/18 72 16:01 11/04/18 97.8 19 145/74 99 15:09 (97) 11/04/18 Nasal 1.0 08:10 Cannula Intake and Output 11/03/18 11/03/18 11/04/18 1515:00 23:00 07:00 IntakeIntake Total 500 ml 200 ml BalanceBalance 500 ml 200 ml Exam female lying in bed who is crying. She is having a hypoglycemic reaction as complaining that her IV site hurts Neck: supple, non-tender Respiratory: clear to auscultation, normal air movement Cardiovascular: regular rate and rhythm, nl pulses Gastrointestinal: soft, nl liver, spleen, non-tender Results Result Diagram: 11/04/18 0451 11/04/18 0922 Results 24hrs Laboratory Tests Test 11/03/18 20:12 11/03/18 20:37 11/04/18 04:51 11/04/18 07:41 Bedside Glucose 37 *L 96 51 L White Blood Count 4.5 #L Red Blood Count 2.68 L Hemoglobin 8.1 L Hematocrit 25.6 L Mean Corpuscular Volume 95.5 Mean Corpuscular 30.2 Hemoglobin Mean Corpuscular 31.6 L Hemoglobin Concent Red Cell Distribution 17.2 H Width Platelet Count 186 Mean Platelet Volume 10.2 Immature Granulocytes % 0.400 Neutrophils % 61.5 Lymphocytes % 11.7 L Monocytes % 18.4 H Eosinophils % 6.7 Basophils % 1.3 Nucleated Red Blood 0.0 Cells % Immature Granulocytes # 0.020 Neutrophils # 2.7 Lymphocytes # 0.5 L Monocytes # 0.8 Eosinophils # 0.3 Basophils # 0.1 Nucleated Red Blood 0.0 Cells # Sodium Level 140 Potassium Level 4.8 Chloride Level 105 Carbon Dioxide Level 25 Anion Gap 10 # Blood Urea Nitrogen 25 H Creatinine 6.77 H Est Glomerular Filtrat 7 L Rate mL/min Glucose Level 68 #L Calcium Level 9.3 Phosphorus Level 4.2 Magnesium Level 2.3 Test 11/04/18 07:58 11/04/18 08:11 11/04/18 08:27 11/04/18 08:41 Bedside Glucose 55 L 59 L 70 93 Test 11/04/18 08:58 11/04/18 09:22 11/04/18 12:04 11/04/18 17:13 Bedside Glucose 103 101 30 *L Glucose Level 95 Test 11/04/18 17:34 11/04/18 17:58 Bedside Glucose 31 *L 49 *L Medications Medication Current Medications IV Flush (NS 3 ml) 3 ml PER PROTOCOL IV ; Start 11/01/18 at 19:30 Heparin Sodium (Porcine) (Heparin (5000 Units/1ml)) 5,000 unit Q12 SC Last administered on 11/04/18 08:04; Admin Dose 5,000 UNIT; Start 11/01/18 at 21:00 Hydromorphone HCl (Dilaudid) 4 mg Q4H PRN PO SEVERE PAIN LEVEL 7-10 Last administered on 11/04/18 17:10; Admin Dose 4 MG; Start 11/02/18 at 08:30 Calcium Carbonate (Tums) 500 mg Q2H PRN PO GASTROINTESTINAL UPSET Last administered on 11/04/18 07:56; Admin Dose 500 MG; Start 11/02/18 at 10:00 Clonidine (Catapres) 0.4 mg BID PO Last administered on 11/04/18 07:56; Admin Dose 0.4 MG; Start 11/02/18 at 21:00 Hydralazine HCl (Apresoline) 100 mg TID PO Last administered on 11/04/18 12:06; Admin Dose 100 MG; Start 11/02/18 at 13:00 Hyoscyamine (Levsin (Sl)) 0.125 mg Q8H PRN PO NAUSEA Last administered on 11/04/18 12:10; Admin Dose 0.125 MG; Start 11/02/18 at 09:30 Labetalol HCl (Normodyne) 1,200 mg BID PO Last administered on 11/04/18 08:01; Admin Dose 1,200 MG; Start 11/02/18 at 09:30 Loperamide HCl (Imodium Cap) 2 mg TID PRN PO DIARRHEA; Start 11/02/18 at 09:30 Losartan Potassium (Cozaar) 100 mg DAILY PO Last administered on 11/04/18 07:56; Admin Dose 100 MG; Start 11/02/18 at 10:00 Spironolactone (Aldactone) 25 mg BID PO Last administered on 11/04/18 07:55; Admin Dose 25 MG; Start 11/02/18 at 21:00 Sucralfate (Carafate) 1 gm QID PO Last administered on 11/04/18 17:11; Admin Dose 1 GM; Start 11/02/18 at 13:00; Stop 11/16/18 at 12:59 Miscellaneous Information 1 ea NOTE XX ; Start 11/02/18 at 10:00 Glucose (Glutose) 15 gm Q15M PRN PO DECREASED GLUCOSE; Start 11/02/18 at 10:00 Glucose (Glutose) 22.5 gm Q15M PRN PO DECREASED GLUCOSE; Start 11/02/18 at 10:00 Dextrose (D50w Syringe) 25 ml Q15M PRN IV DECREASED GLUCOSE Last administered on 11/03/18 20:16; Admin Dose 25 ML; Start 11/02/18 at 10:00 Dextrose (D50w Syringe) 50 ml Q15M PRN IV DECREASED GLUCOSE Last administered on 11/03/18 17:05; Admin Dose 50 ML; Start 11/02/18 at 10:00 Glucagon (Glucagen) 1 mg Q15M PRN IM DECREASED GLUCOSE; Start 11/02/18 at 10:00 Glucose (Glutose) 15 gm Q15M PRN BUCCAL DECREASED GLUCOSE Last administered on 11/04/18at 17:39; Admin Dose 15 GM; Start 11/02/18 at 10:00 Hydralazine HCl (Apresoline) 20 mg Q6H PRN IV SBP>185 Last administered on 11/02/18 20:01; Admin Dose 20 MG; Start 11/02/18 at 11:30 Labetalol HCl (Labetalol) 20 mg Q4H PRN IV SBP>185 Last administered on 11/02/18 12:22; Admin Dose 20 MG; Start 11/02/18 at 12:00 Eye Lubricant (Artificial Tears Oph) 2 drop Q6H PRN BOTH EYES DRY EYES Last administered on 11/03/18 04:19; Admin Dose 2 DROP; Start 11/02/18 at 16:00 Insulin Aspart (Novolog Insulin Pen) NOVOLOG *MILD* ALGORITHM WITH MEALS BEDT ANY SC Last administered on 11/03/18 08:21; Admin Dose 4 UNIT; Start 11/02/18 at 21:00 Clonidine HCl (Catapres-Tts 3 Patch) 2 patch Q7D TRANSDERM Last administered on 11/02/18 22:54; Admin Dose 2 PATCH; Start 11/02/18 at 20:00 Trimethobenzamide HCl (Tigan) 200 mg Q6H PRN IM NAUSEA AND/OR VOMITING Last administered on 11/04/18 12:09; Admin Dose 200 MG; Start 11/03/18 at 15:00 Pantoprazole (Protonix Iv) 40 mg BID@,18 IV Last administered on 11/04/18 05:20; Admin Dose 40 MG; Start 11/03/18 at 18:00 Epoetin Vic-epbx (RETACRIT(esrd)) 10,000 unit MoWeFr@1700 SC Last administered on 11/04/18 17:12; Admin Dose 10,000 UNIT; Start 11/04/18 at 17:00 Diphenhydramine HCl (Benadryl) 25 mg Q6H PRN PO ITCHING; Start 11/04/18 at 11:30 Ondansetron HCl (Zofran Inj) 8 mg Q4H PRN IV NAUSEA/VOMITING Last administered on 11/04/18 13:13; Admin Dose 8 MG; Start 11/04/18 at 12:30 Hydromorphone HCl (Dilaudid) 1 mg Q8H PRN IV SEVERE PAIN LEVEL 7-10 Last administered on 11/04/18 13:13; Admin Dose 1 MG; Start 11/04/18 at 12:30 Lorazepam (Ativan) 1 mg Q8H PRN IV AGITATION/ANXIETY Last administered on 11/04/18 14:32; Admin Dose 1 MG; Start 11/04/18 at 14:30 Erythromycin (Erythromycin) 250 mg TID PO Last administered on 11/04/18 17:11; Admin Dose 250 MG; Start 11/04/18 at 15:00 Insulin Glargine (Lantus) 10 units DAILY@0800 SC ; Start 11/05/18 at 08:00; Status ADRI SCHROEDER MD November 04, 2018 18:12
[2018-11-04] MEDS ORDERED: HYDROCODONE/APAP (5/325) TAB PO PRN (18:30)
[2018-11-04] MEDS ORDERED: LORAZEPAM 2 MG INJ IV PRN (18:30)
[2018-11-04] MEDS: DOXAZOSIN 1 MG TAB PO SCH (21:05)
[2018-11-05] VITALS (26 sets, daily range): BP systolic 141–243; BP diastolic 57–140; PULSE 75–83; RESP 17–20
[2018-11-05] MEDS: HYDROmorphONE 2 MG TAB PO PRN (02:24)
[2018-11-05] MEDS: PANTOPRAZOLE 40 MG INJ IV SCH ×2 (05:10→17:24)
[2018-11-05] MEDS: HYDROmorphONE 1 MG/ML SYG IV PRN ×3 (05:10→22:28)
[2018-11-05] MEDS: LORAZEPAM 2 MG INJ IV PRN ×2 (06:21→20:49)
[2018-11-05] MEDS: INSULIN GLARGINE [LANTus] (100 UNITS/ML) SYG SC SCH (08:00)
[2018-11-05] MEDS: INSULIN ASPART [NOVOLOG] 3 ML PEN SC SCH ×4 (08:08→20:47)
[2018-11-05] MEDS: SUCRALFATE 1 GM TAB PO SCH ×4 (08:54→20:49)
[2018-11-05] MEDS: SPIRONOLACTONE 50 MG TAB PO SCH ×2 (08:54→20:48)
[2018-11-05] MEDS: LABETALOL 200 MG TAB PO SCH ×4 (08:55→23:37)
[2018-11-05] MEDS: ERYTHROMYCIN BASE (DR) 250 MG CAP PO SCH ×3 (08:55→20:48)
[2018-11-05] MEDS: HEPARIN 5,000 UNIT/1 ML VIAL SC SCH ×2 (08:55→21:07)
[2018-11-05] MEDS: LOSARTAN 50 MG TAB PO SCH ×2 (08:55→12:30)
--- NOTE | 2018-11-05 09:37 | PN ---
DATE: 11/05/2018 SUBJECTIVE: The patient continues to have pain in her lower extremity. No other events noted. OBJECTIVE: VITAL SIGNS: Blood pressure is 141/63, pulse 77, respirations 17, temperature 97.8. HEENT: Head is normocephalic. NECK: Supple. HEART: Regular rate. LUNGS: Show diminished breath sounds at base. ABDOMEN: Soft, nontender to palpation without rebound or guarding. EXTREMITIES: Negative for clubbing, cyanosis. Positive brace noted on left lower extremity. DERMATOLOGIC: No rashes. MUSCULOSKELETAL: No joint effusion. NEUROLOGIC: No change in exam. MEDICATIONS: Have been reviewed. LABORATORY DATA: Has been reviewed. ASSESSMENT AND PLAN: 1. for hemodialysis today. We will dialyze 3 hours 2k bath, calcium 2.5 Benadryl will be give n during dialysis. 2. Anemia. Monitor hemoglobin and hematocrit levels. Continue Epogen. 3. Mineral bone disorder. Monitor calcium and phosphorus levels. Continue phosphate binders as nee ded. 4. Hypertension. Continue current blood pressure regimen. Continue ultrafiltration with dialysis. 5. Diabetes. Continue current insulin regimen. 6. Nausea, vomiting secondary to gastroparesis. Continue medical management. 7. Right tibial fibula fracture. Continue conservative care, pain control. Continue underlying bra ce followup with orthopedist. 8. Hyperkalemia, resolved. 9. Chronic pain syndrome with possible opiate addiction. Dictated By: JUJU MARTINEZ DO NR/NTS Conf#: [id number] DID#: [id number] CC: JERAMIE KEE MD;*EndCC*
--- NOTE | 2018-11-05 10:25 | PN ---
Date/Time of Note Date/Time of Note DATE: 11/05/18 TIME: 10:20 Assessment/Plan VTE Prophylaxis Risk score (from Nsg)>0 risk: 11 SCD applied (from Ns): No SCD contraindicated: other Pharmacological prophylaxis: heparin Lines/Catheters IV Catheter Type (from Nrsg): Mid Line Urinary Cath still in place: No Assessment/Plan Hospital Course S: Patient getting dialysis now, still with some generalized pain complaints, still waiting to be seen by orthopedic surgery team. Less nausea today. O: VS - see below PE: General: lying in bed, answering questions appropriately HEENT: Atraumatic, normocephalic. Moist mucous membranes, clear oropharynx Neck: Supple with full range of motion. No rigidity or meningismus Chest: Right Tremayne cath Lungs: Clear to auscultation bilaterally no crackles rales or wheezing Heart: Normal S1-S2, Regular rhythm and rate. No murmur, S3, or S4 Abdomen: Soft , nontender, nondistended , bowel sounds are present. No guarding no rebound tenderness Extremities: Right lower extremity in brace, skin clean appearing, warm to touch, distal pulses palpable, no cyanosis noted Assessment/Plan: 28 yo woman with type I diabetes, ESRD on MWF dialysis, diabetic gastroparesis and multiple allergies presents after recent admission with high blood sugars, pain and nausea. #Type I diabetes: Patient has longstanding uncontrolled type 1 DM diagnosed at a 7 complicated by retinopathy, neuropathy and ESRD. Latest A1c equals 7.4. Patient with mild DKA, now resolved, appreciate endocrinology recommendations -For now continue sliding scale insulin and Lantus 10 units every morning per endocrinology recommendations -Monitor sugars #Nausea/vomiting: - Chronic diabetic gastroparesis. -For now continue PRN Tigan, Zofran, and Levsin. - Continue PPI and carafate. -For now continue full liquid diet, awaiting GI reevaluation. -For now continue 3 times daily erythromycin (allergy to Reglan) # HTN- Well controlled last admission on home meds. - Continue p.o. labetalol, clonidine, spironolactone, losartan, and hydrala zine. -Continue IV as needed anti-hypertensive medicines as well #ESRD-renal team on the case - Continue scheduled HD per nephrology. #Right tib/fib fracture-orthopedics Dr. Babcock consulted on last admission- recommended for long leg brace with a dial lock - now in place. -For now keep limb immobile-continue leg brace that is now in place, ordered by orthopedic surgery team -also awaiting their reconsult - Evaluated by ARU last admission and declined. - Continue PO dilaudid as needed. Avoid reliance on IV opiates. -Follow-up PT eval DVT: heparin GI: PPI twice daily Result Diagram: 11/05/18 0547 11/05/18 0547 Results 24hrs Laboratory Tests Test 11/04/18 12:04 11/04/18 17:13 11/04/18 17:34 11/04/18 17:58 Bedside Glucose 101 30 *L 31 *L 49 *L Test 11/04/18 18:19 11/04/18 18:45 11/04/18 21:01 11/05/18 03:50 Bedside Glucose 164 148 119 235 H Test 11/05/18 05:47 11/05/18 07:29 White Blood Count 5.0 Red Blood Count 2.98 L Hemoglobin 8.9 L Hematocrit 28.4 L Mean Corpuscular Volume 95.3 Mean Corpuscular 29.9 Hemoglobin Mean Corpuscular 31.3 L Hemoglobin Concent Red Cell Distribution 17.2 H Width Platelet Count 200 Mean Platelet Volume 10.5 H Immature Granulocytes % 0.400 Neutrophils % 70.6 Lymphocytes % 8.9 L Monocytes % 12.5 H Eosinophils % 6.4 Basophils % 1.2 Nucleated Red Blood 0.0 Cells % Immature Granulocytes # 0.020 Neutrophils # 3.5 Lymphocytes # 0.4 L Monocytes # 0.6 Eosinophils # 0.3 Basophils # 0.1 Nucleated Red Blood 0.0 Cells # Sodium Level 137 Potassium Level 5.1 Chloride Level 102 Carbon Dioxide Level 22 Anion Gap 13 Blood Urea Nitrogen 32 H Creatinine 7.59 H Est Glomerular Filtrat 6 L Rate mL/min Glucose Level 249 #H Calcium Level 9.2 Phosphorus Level 4.5 Magnesium Level 2.2 Bedside Glucose 223 H Exam/Review of Systems Exam Vitals Vital Signs Date Temp Pulse Resp B/P (MAP) Pulse Ox O2 O2 Flow FiO2 Time Delivery Rate 11/05/18 81 09:55 11/05/18 20 181/110 98 Nasal 2.0 08:00 (133) Cannula 11/05/18 97.8 07:43 Intake and Output 11/04/18 11/04/18 11/05/18 1515:00 23:00 07:00 IntakeIntake Total 400 ml 400 ml BalanceBalance 400 ml 400 ml Results Results 24hrs Laboratory Tests Test 11/04/18 12:04 11/04/18 17:13 11/04/18 17:34 11/04/18 17:58 Bedside Glucose 101 30 *L 31 *L 49 *L Test 11/04/18 18:19 11/04/18 18:45 11/04/18 21:01 11/05/18 03:50 Bedside Glucose 164 148 119 235 H Test 11/05/18 05:47 11/05/18 07:29 White Blood Count 5.0 Red Blood Count 2.98 L Hemoglobin 8.9 L Hematocrit 28.4 L Mean Corpuscular Volume 95.3 Mean Corpuscular 29.9 Hemoglobin Mean Corpuscular 31.3 L Hemoglobin Concent Red Cell Distribution 17.2 H Width Platelet Count 200 Mean Platelet Volume 10.5 H Immature Granulocytes % 0.400 Neutrophils % 70.6 Lymphocytes % 8.9 L Monocytes % 12.5 H Eosinophils % 6.4 Basophils % 1.2 Nucleated Red Blood 0.0 Cells % Immature Granulocytes # 0.020 Neutrophils # 3.5 Lymphocytes # 0.4 L Monocytes # 0.6 Eosinophils # 0.3 Basophils # 0.1 Nucleated Red Blood 0.0 Cells # Sodium Level 137 Potassium Level 5.1 Chloride Level 102 Carbon Dioxide Level 22 Anion Gap 13 Blood Urea Nitrogen 32 H Creatinine 7.59 H Est Glomerular Filtrat 6 L Rate mL/min Glucose Level 249 #H Calcium Level 9.2 Phosphorus Level 4.5 Magnesium Level 2.2 Bedside Glucose 223 H Medications Medication Current Medications IV Flush (NS 3 ml) 3 ml PER PROTOCOL IV ; Start 11/01/18 at 19:30 Heparin Sodium (Porcine) (Heparin (5000 Units/1ml)) 5,000 unit Q12 SC Last administered on 11/04/18at 21:29; Admin Dose 5,000 UNIT; Start 11/01/18 at 21:00 Hydromorphone HCl (Dilaudid) 4 mg Q4H PRN PO SEVERE PAIN LEVEL 7-10 Last administered on 11/05/18at 02:24; Admin Dose 4 MG; Start 11/02/18 at 08:30 Calcium Carbonate (Tums) 500 mg Q2H PRN PO GASTROINTESTINAL UPSET Last administered on 11/04/18 07:56; Admin Dose 500 MG; Start 11/02/18 at 10:00 Clonidine (Catapres) 0.4 mg BID PO Last administered on 11/04/18 21:05; Admin Dose 0.4 MG; Start 11/02/18 at 21:00 Hydralazine HCl (Apresoline) 100 mg TID PO Last administered on 11/04/18 21:06; Admin Dose 100 MG; Start 11/02/18 at 13:00 Hyoscyamine (Levsin (Sl)) 0.125 mg Q8H PRN PO NAUSEA Last administered on 11/04/18 12:10; Admin Dose 0.125 MG; Start 11/02/18 at 09:30 Labetalol HCl (Normodyne) 1,200 mg BID PO Last administered on 11/04/18 21:05; Admin Dose 1,200 MG; Start 11/02/18 at 09:30 Loperamide HCl (Imodium Cap) 2 mg TID PRN PO DIARRHEA; Start 11/02/18 at 09:30 Losartan Potassium (Cozaar) 100 mg DAILY PO Last administered on 11/04/18 07:56; Admin Dose 100 MG; Start 11/02/18 at 10:00 Spironolactone (Aldactone) 25 mg BID PO Last administered on 11/04/18 21:04; Admin Dose 25 MG; Start 11/02/18 at 21:00 Sucralfate (Carafate) 1 gm QID PO Last administered on 11/04/18 21:06; Admin Dose 1 GM; Start 11/02/18 at 13:00; Stop 11/16/18 at 12:59 Miscellaneous Information 1 ea NOTE XX ; Start 11/02/18 at 10:00 Glucose (Glutose) 15 gm Q15M PRN PO DECREASED GLUCOSE; Start 11/02/18 at 10:00 Glucose (Glutose) 22.5 gm Q15M PRN PO DECREASED GLUCOSE; Start 11/02/18 at 10:00 Dextrose (D50w Syringe) 25 ml Q15M PRN IV DECREASED GLUCOSE Last administered on 11/04/18 18:07; Admin Dose 25 ML; Start 11/02/18 at 10:00 Dextrose (D50w Syringe) 50 ml Q15M PRN IV DECREASED GLUCOSE Last administered on 11/03/18 17:05; Admin Dose 50 ML; Start 11/02/18 at 10:00 Glucagon (Glucagen) 1 mg Q15M PRN IM DECREASED GLUCOSE; Start 11/02/18 at 10:00 Glucose (Glutose) 15 gm Q15M PRN BUCCAL DECREASED GLUCOSE Last administered on 11/04/18 17:39; Admin Dose 15 GM; Start 11/02/18 at 10:00 Hydralazine HCl (Apresoline) 20 mg Q6H PRN IV SBP>185 Last administered on 11/02/18 20:01; Admin Dose 20 MG; Start 11/02/18 at 11:30 Labetalol HCl (Labetalol) 20 mg Q4H PRN IV SBP>185 Last administered on 11/02/18 12:22; Admin Dose 20 MG; Start 11/02/18 at 12:00 Eye Lubricant (Artificial Tears Oph) 2 drop Q6H PRN BOTH EYES DRY EYES Last administered on 11/03/18 04:19; Admin Dose 2 DROP; Start 11/02/18 at 16:00 Insulin Aspart (Novolog Insulin Pen) NOVOLOG *MILD* ALGORITHM WITH MEALS BEDTIME SC Last administered on 11/05/18 08:08; Admin Dose 3 UNIT; Start 11/02/18 at 21:00 Clonidine HCl (Catapres-Tts 3 Patch) 2 patch Q7D TRANSDERM Last administered on 11/02/18 22:54; Admin Dose 2 PATCH; Start 11/02/18 at 20:00 Trimethobenzamide HCl (Tigan) 200 mg Q6H PRN IM NAUSEA AND/OR VOMITING Last administered on 11/04/18 12:09; Admin Dose 200 MG; Start 11/03/18 at 15:00 Pantoprazole (Protonix Iv) 40 mg BID@06,18 IV Last administered on 11/05/18 05:10; Admin Dose 40 MG; Start 11/03/18 at 18:00 Epoetin Vic-epbx (RETACRIT(esrd)) 10,000 unit MoWeFr@1700 SC Last administered on 11/04/18 17:12; Admin Dose 10,000 UNIT; Start 11/04/18 at 17:00 Diphenhydramine HCl (Benadryl) 25 mg Q6H PRN PO ITCHING; Start 11/04/18 at 11:30 Ondansetron HCl (Zofran Inj) 8 mg Q4H PRN IV NAUSEA/VOMITING Last administered on 11/04/18at 22:25; Admin Dose 8 MG; Start 11/04/18 at 12:30 Hydromorphone HCl (Dilaudid) 1 mg Q8H PRN IV SEVERE PAIN LEVEL 7-10 Last administered on 11/05/18 05:10; Admin Dose 1 MG; Start 11/04/18 at 12:30 Lorazepam (Ativan) 1 mg Q8H PRN IV AGITATION/ANXIETY Last administered on 11/05/18 06:21; Admin Dose 1 MG; Start 11/04/18 at 14:30 Erythromycin (Erythromycin) 250 mg TID PO Last administered on 11/04/18 21:05; Admin Dose 250 MG; Start 11/04/18 at 15:00 Insulin Glargine (Lantus) 10 units DAILY@0800 SC ; Start 11/05/18 at 08:00 Doxazosin Mesylate (Cardura) 1 mg HS PO Last administered on 11/04/18 21:05; Admin Dose 1 MG; Start 11/04/18 at 21:00 Acetaminophen/ Hydrocodone Bitart ([place] (5/325)) 1 tab Q4H PRN PO MODERATE RACHEAL N LEVEL 4-6; Start 11/04/18 at 18:30 NAYAN WILLIS November 05, 2018 10:25
[2018-11-05] MEDS: HEPARIN 1000 UNITS/ML 10 ML INJ CATHETER SCH (12:08)
--- NOTE | 2018-11-05 13:20 | CONS ---
Assessment/Plan Assessment/Plan Hospital Course (Demo Recall) Summary Assessment and Plan: Assessment: History of gastroparesis Type I diabetes- with hyperglycemia History of PUD IBS - D HTN Normocytic anemia ESRD- on HD Right tib/fib fracture Partially blind Plan: Continue antiemetic therapy Continue erythromycin-Reglan will not be started as patient does have an allergy Continue PPI/Carafate x 4weeks- given recent findings of Currently on full liquid diet Recent stool for H. pylori- not detected Monitor need for EGD if deemed necessary patient will require medical clearance given severe pulmonary hypertension Patient seen in collaboration with Dr. Paul CC: FARIDA PAUL MD ; Consultation Date/Type/Reason Admit Date/Time November 01, 2018 Date of Consultation: November 05, 2018 Type of Consult GI Reason for Consultation Nausea/vomiting Evaluation for EGD Date/Time of Note DATE: 11/05/18 TIME: 13:04 Hx of Present Illness This is a 28-year-old female with past medical history of severe pulmonary hypertension, end-stage renal disease on hemodialysis, partially blind, diabetic diabetes poorly controlled, gastroparesis, persistent nausea/vomiting, hypertension, recent right tibia/tibia fracture being followed by Dr. Babcock who was recently discharged from our facility with readmission earlier this week with complaint of nausea hyperglycemia and leg pain. Patient has been evaluated by speech therapy recommended GI reevaluation for possible EGD. With last admission there was a plan in place for EGD however commended by current cardiology to avoid EGD with severe pulmonary hypertension. Was noted patient had an EGD about a month and a half ago at [facility] at that time per records she was noted to have PUD. He is currently on PPI twice daily as well as Carafate additionally she has been started on erythromycin, she has an allergy to Reglan. We will continue to monitor adjust medication as needed no plan for EGD until patient has been cleared or symptoms become progressively worse. Review of Systems: A 12 system, review was conducted and is negative except as noted in the HPI or here. Past Medical History Medical History: diabetes (End-stage renal disease; retinopathy; peripheral neuropathy; autonomic neuropathy), GERD, high cholesterol, hypertension, renal disease (End-stage renal disease due to diabetes mellitus type 1) Home Meds Active Scripts Pantoprazole* (Pantoprazole*) 40 Mg Tablet., 40 MG PO BID, #60 TAB Prov:VINICIUS YAÑEZ MD 10/29/18 Sucralfate (Carafate) 1 Gm Tablet, 1 GM PO QID, #60 TAB Prov:VINICIUS YAÑEZ MD 10/29/18 Losartan Potassium* (Cozaar*) 50 Mg Tablet, 100 MG PO DAILY, #60 TAB Prov:VINICIUS YAÑEZ MD 10/29/18 Hyoscyamine Sulfate* (Hyoscyamine Sulfate*) 0.125 Mg Tab.subl, 0.125 MG PO Q8 PRN for NAUSEA, #60 TAB Prov:VINICIUS YAÑEZ MD 10/29/18 Hydralazine Hcl* (Hydralazine Hcl*) 50 Mg Tab, 100 MG PO TID, #180 TAB Prov:VINICIUS YAÑEZ MD 10/29/18 Reported Medications Loperamide Hcl* (Imodium*) 2 Mg Capsule, 2 MG PO TID PRN for DIARRHEA, CAP MAX 16 mg/day 10/21/18 Insulin Glargine* (Lantus*) 100 Unit/Ml Soln, 10 UNIT SC DAILY, #1 VIAL 10/21/18 Insulin Lispro (Humalog) 100 Unit/1 Ml Cartridge, 0 SQ SLIDING SCALE 5-15 U, EA 10/21/18 Lorazepam* (Lorazepam*) 0.5 Mg Tablet, 0.5 MG PO Q6 PRN for AGITATION/ANXIETY, TAB 10/21/18 Calcium Carbonate* (Tums X-Str) 300 Mg Tab.chew, 300 MG PO Q2H PRN for GASTROINTESTINAL UPSET, TAB.CHEW 10/21/18 Clonidine Hcl* (Clonidine Hcl*) 0.3 Mg Tablet, 0.4 MG PO BID, TAB 10/21/18 Spironolactone* (Spironolactone*) 100 Mg Tablet, 25 MG PO BID, TAB 10/21/18 Labetalol Hcl (Normodyne) 200 Mg Tablet, 1200 MG PO BID, TAB 10/21/18 Hydromorphone Hcl (Dilaudid) 2 Mg Tab, 2 MG PO Q4 PRN for PAIN, TAB 10/21/18 Clonidine Patch (CLONIDINE PATCH) 0.3 Mg/24 Hr Patch, 2 PATCH.WK TD Q7D, #4 PATCH.WK 10/21/18 Discontinued Reported Medications Pantoprazole (Protonix) 40 Mg Tabec, 40 MG PO BID, TAB 10/21/18 Medications Current Medications IV Flush (NS 3 ml) 3 ml PER PROTOCOL IV ; Start 11/01/18 at 19:30 Heparin Sodium (Porcine) (Heparin (5000 Units/1ml)) 5,000 unit Q12 SC Last administered on 11/04/18 21:29; Admin Dose 5,000 UNIT; Start 11/01/18 at 21:00 Hydromorphone HCl (Dilaudid) 4 mg Q4H PRN PO SEVERE PAIN LEVEL 7-10 Last administered on 11/05/18 02:24; Admin Dose 4 MG; Start 11/02/18 at 08:30 Calcium Carbonate (Tums) 500 mg Q2H PRN PO GASTROINTESTINAL UPSET Last administered on 11/04/18 07:56; Admin Dose 500 MG; Start 11/02/18 at 10:00 Clonidine (Catapres) 0.4 mg BID PO Last administered on 11/05/18 12:28; Admin Dose 0.4 MG; Start 11/02/18 at 21:00 Hydralazine HCl (Apresoline) 100 mg TID PO Last administered on 11/05/18 12:27; Admin Dose 100 MG; Start 11/02/18 at 13:00 Hyoscyamine (Levsin (Sl)) 0.125 mg Q8H PRN PO NAUSEA Last administered on 11/04/18 12:10; Admin Dose 0.125 MG; Start 11/02/18 at 09:30 Labetalol HCl (Normodyne) 1,200 mg BID PO Last administered on 11/05/18 12:29; Admin Dose 1,200 MG; Start 11/02/18 at 09:30 Loperamide HCl (Imodium Cap) 2 mg TID PRN PO DIARRHEA; Start 11/02/18 at 09:30 Losartan Potassium (Cozaar) 100 mg DAILY PO Last administered on 11/05/18 12:30; Admin Dose 100 MG; Start 11/02/18 at 10:00 Spironolactone (Aldactone) 25 mg BID PO Last administered on 11/04/18 21:04; Admin Dose 25 MG; Start 11/02/18 at 21:00 Sucralfate (Carafate) 1 gm QID PO Last administered on 5/7/19at 12:27; Admin Dose 1 GM; Start 11/02/18 at 13:00; Stop 11/16/18 at 12:59 Miscellaneous Information 1 ea NOTE XX ; Start 11/02/18 at 10:00 Glucose (Glutose) 15 gm Q15M PRN PO DECREASED GLUCOSE; Start 11/02/18 at 10:00 Glucose (Glutose) 22.5 gm Q15M PRN PO DECREASED GLUCOSE; Start 11/02/18 at 10:00 Dextrose (D50w Syringe) 25 ml Q15M PRN IV DECREASED GLUCOSE Last administered on 11/04/18at 18:07; Admin Dose 25 ML; Start 11/02/18 at 10:00 Dextrose (D50w Syringe) 50 ml Q15M PRN IV DECREASED GLUCOSE Last administered on 11/03/18 17:05; Admin Dose 50 ML; Start 11/02/18 at 10:00 Glucagon (Glucagen) 1 mg Q15M PRN IM DECREASED GLUCOSE; Start 11/02/18 at 10:00 Glucose (Glutose) 15 gm Q15M PRN BUCCAL DECREASED GLUCOSE Last administered on 11/04/18at 17:39; Admin Dose 15 GM; Start 11/02/18 at 10:00 Hydralazine HCl (Apresoline) 20 mg Q6H PRN IV SBP>185 Last administered on 11/02/18 20:01; Admin Dose 20 MG; Start 11/02/18 at 11:30 Labetalol HCl (Labetalol) 20 mg Q4H PRN IV SBP>185 Last administered on 11/02/18 12:22; Admin Dose 20 MG; Start 11/02/18 at 12:00 Eye Lubricant (Artificial Tears Oph) 2 drop Q6H PRN BOTH EYES DRY EYES Last administered on 11/03/18 04:19; Admin Dose 2 DROP; Start 11/02/18 at 16:00 Insulin Aspart (Novolog Insulin Pen) NOVOLOG *MILD* ALGORITHM WITH MEALS BEDTIME SC Last administered on 11/05/18 08:08; Admin Dose 3 UNIT; Start 11/02/18 at 21:00 Clonidine HCl (Catapres-Tts 3 Patch) 2 patch Q7D TRANSDERM Last administered on 11/02/18at 22:54; Admin Dose 2 PATCH; Start 11/02/18 at 20:00 Trimethobenzamide HCl (Tigan) 200 mg Q6H PRN IM NAUSEA AND/OR VOMITING Last administered on 11/04/18 12:09; Admin Dose 200 MG; Start 11/03/18 at 15:00 Pantoprazole (Protonix Iv) 40 mg BID@06,18 IV Last administered on 11/05/18 05:10; Admin Dose 40 MG; Start 11/03/18 at 18:00 Epoetin Vic-epbx (RETACRIT(esrd)) 10,000 unit MoWeFr@1700 SC Last administered on 11/04/18 17:12; Admin Dose 10,000 UNIT; Start 11/04/18 at 17:00 Diphenhydramine HCl (Benadryl) 25 mg Q6H PRN PO ITCHING; Start 11/04/18 at 11:30 Ondansetron HCl (Zofran Inj) 8 mg Q4H PRN IV NAUSEA/VOMITING Last administered on 11/04/18 22:25; Admin Dose 8 MG; Start 11/04/18 at 12:30 Hydromorphone HCl (Dilaudid) 1 mg Q8H PRN IV SEVERE PAIN LEVEL 7-10 Last administered on 11/05/18 05:10; Admin Dose 1 MG; Start 11/04/18 at 12:30 Lorazepam (Ativan) 1 mg Q8H PRN IV AGITATION/ANXIETY Last administered on 11/05/18 06:21; Admin Dose 1 MG; Start 11/04/18 at 14:30 Erythromycin (Erythromycin) 250 mg TID PO Last administered on 11/05/18 12:27; Admin Dose 250 MG; Start 11/04/18 at 15:00 Insulin Glargine (Lantus) 10 units DAILY@0800 SC ; Start 11/05/18 at 08:00 Doxazosin Mesylate (Cardura) 1 mg HS PO Last administered on 11/04/18 21:05; Admin Dose 1 MG; Start 11/04/18 at 21:00 Acetaminophen/ Hydrocodone Bitart ([place] (5/325)) 1 tab Q4H PRN PO MODERATE PAIN LEVEL 4-6; Start 11/04/18 at 18:30 Heparin Sodium (Porcine) (Heparin (1000 Units/ml)) 3,700 unit AFTER DIALYSIS CATHETER Last administered on 5/7/19at 12:08; Admin Dose 3,700 UNIT; Start 11/05/18 at 11:00 Allergies: Coded Allergies: amlodipine (Verified Allergy, Intermediate, swelling of lips, 11/01/18) nifedipine (Verified Allergy, Intermediate, 11/01/18) adhesive tape (Verified Allergy, Mild, 11/01/18) benazepril (Verified Allergy, Mild, 11/01/18) ketorolac (Verified Allergy, Mild, 11/01/18) latex (Verified Allergy, Mild, 11/01/18) metoclopramide (Verified Allergy, Mild, 11/01/18) morphine (Verified Allergy, Mild, 11/01/18) tramadol (Verified Allergy, Mild, 11/01/18) clindamycin (Verified Allergy, Unknown, 11/01/18) Past Surgical History Past Surgical Hx: no surgical history, other Social History Alcohol Use: none Smoking Status: Never smoker Drug Use: none Exam/Review of Systems Exam Vitals Vital Signs Date Temp Pulse Resp B/P (MAP) Pulse Ox O2 O2 Flow FiO2 Time Delivery Rate 11/05/18 78 12:01 11/05/18 98.0 19 190/67 100 11:42 (108) 11/05/18 Nasal 2.0 08:00 Cannula Intake and Output 11/04/18 11/04/18 11/05/18 1515:00 23:00 07:00 IntakeIntake Total 400 ml 400 ml BalanceBalance 400 ml 400 ml Exam PHYSICAL EXAMINATION: GENERAL: Partially blind chronically ill-appearing alert & oriented x 3, in no acute distress SKIN: Multiple bruises, dialysis access HEAD: Normocephalic, atraumatic, no tenderness. EYES: Pupils equal reactive to light and accommodation, no discharge. EARS/NOSE AND THROAT: Ears normal, nose normal, oropharynx normal, oral membranes well hydrated without lesions. NECK: Supple, no masses. CHEST: Inspection within normal limits. CARDIOVASCULAR: Heart: Regular rate and rhythm RESPIRATORY: Lungs clear to auscultation. GASTROINTESTINAL AND LIVER: Abdomen: Soft, mild tenderness, non-distended, no hernias, no masses, normoactive bowel sounds. Rectal: Deferred. E Results Result Diagram: 11/05/18 0547 11/05/18 0547 Results 24hrs Laboratory Tests Test 11/04/18 17:13 11/04/18 17:34 11/04/18 17:58 11/04/18 18:19 Bedside Glucose 30 *L 31 *L 49 *L 164 Test 11/04/18 18:45 11/04/18 21:01 11/05/18 03:50 11/05/18 05:47 Bedside Glucose 148 119 235 H White Blood Count 5.0 Red Blood Count 2.98 L Hemoglobin 8.9 L Hematocrit 28.4 L Mean Corpuscular Volume 95.3 Mean Corpuscular 29.9 Hemoglobin Mean Corpuscular 31.3 L Hemoglobin Concent Red Cell Distribution 17.2 H Width Platelet Count 200 Mean Platelet Volume 10.5 H Immature Granulocytes % 0.400 Neutrophils % 70.6 Lymphocytes % 8.9 L Monocytes % 12.5 H Eosinophils % 6.4 Basophils % 1.2 Nucleated Red Blood 0.0 Cells % Immature Granulocytes # 0.020 Neutrophils # 3.5 Lymphocytes # 0.4 L Monocytes # 0.6 Eosinophils # 0.3 Basophils # 0.1 Nucleated Red Blood 0.0 Cells # Sodium Level 137 Potassium Level 5.1 Chloride Level 102 Carbon Dioxide Level 22 Anion Gap 13 Blood Urea Nitrogen 32 H Creatinine 7.59 H Est Glomerular Filtrat 6 L Rate mL/min Glucose Level 249 #H Calcium Level 9.2 Phosphorus Level 4.5 Magnesium Level 2.2 Test 11/05/18 07:29 11/05/18 11:28 Bedside Glucose 223 H 97 Medications Medication Current Medications IV Flush (NS 3 ml) 3 ml PER PROTOCOL IV ; Start 11/01/18 at 19:30 Heparin Sodium (Porcine) (Heparin (5000 Units/1ml)) 5,000 unit Q12 SC Last administered on 11/04/18 21:29; Admin Dose 5,000 UNIT; Start 11/01/18 at 21:00 Hydromorphone HCl (Dilaudid) 4 mg Q4H PRN PO SEVERE PAIN LEVEL 7-10 Last administered on 11/05/18 02:24; Admin Dose 4 MG; Start 11/02/18 at 08:30 Calcium Carbonate (Tums) 500 mg Q2H PRN PO GASTROINTESTINAL UPSET Last administered on 11/04/18 07:56; Admin Dose 500 MG; Start 11/02/18 at 10:00 Clonidine (Catapres) 0.4 mg BID PO Last administered on 11/05/18 12:28; Admin Dose 0.4 MG; Start 11/02/18 at 21:00 Hydralazine HCl (Apresoline) 100 mg TID PO Last administered on 11/05/18 12:27; Admin Dose 100 MG; Start 11/02/18 at 13:00 Hyoscyamine (Levsin (Sl)) 0.125 mg Q8H PRN PO NAUSEA Last administered on 11/04/18 12:10; Admin Dose 0.125 MG; Start 11/02/18 at 09:30 Labetalol HCl (Normodyne) 1,200 mg BID PO Last administered on 11/05/18 12:29; Admin Dose 1,200 MG; Start 11/02/18 at 09:30 Loperamide HCl (Imodium Cap) 2 mg TID PRN PO DIARRHEA; Start 11/02/18 at 09:30 Losartan Potassium (Cozaar) 100 mg DAILY PO Last administered on 11/05/18 12:30; Admin Dose 100 MG; Start 11/02/18 at 10:00 Spironolactone (Aldactone) 25 mg BID PO Last administered on 11/04/18 21:04; Admin Dose 25 MG; Start 11/02/18 at 21:00 Sucralfate (Carafate) 1 gm QID PO Last administered on 11/05/18 12:27; Admin Dose 1 GM; Start 11/02/18 at 13:00; Stop 11/16/18 at 12:59 Miscellaneous Information 1 ea NOTE XX ; Start 11/02/18 at 10:00 Glucose (Glutose) 15 gm Q15M PRN PO DECREASED GLUCOSE; Start 11/02/18 at 10:00 Glucose (Glutose) 22.5 gm Q15M PRN PO DECREASED GLUCOSE; Start 11/02/18 at 10:00 Dextrose (D50w Syringe) 25 ml Q15M PRN IV DECREASED GLUCOSE Last administered on 11/04/18 18:07; Admin Dose 25 ML; Start 11/02/18 at 10:00 Dextrose (D50w Syringe) 50 ml Q15M PRN IV DECREASED GLUCOSE Last administered on 11/03/18 17:05; Admin Dose 50 ML; Start 11/02/18 at 10:00 Glucagon (Glucagen) 1 mg Q15M PRN IM DECREASED GLUCOSE; Start 11/02/18 at 10:00 Glucose (Glutose) 15 gm Q15M PRN BUCCAL DECREASED GLUCOSE Last administered on 11/04/18 17:39; Admin Dose 15 GM; Start 11/02/18 at 10:00 Hydralazine HCl (Apresoline) 20 mg Q6H PRN IV SBP>185 Last administered on 11/02/18 20:01; Admin Dose 20 MG; Start 11/02/18 at 11:30 Labetalol HCl (Labetalol) 20 mg Q4H PRN IV SBP>185 Last administered on 11/02/18 12:22; Admin Dose 20 MG; Start 11/02/18 at 12:00 Eye Lubricant (Artificial Tears Oph) 2 drop Q6H PRN BOTH EYES DRY EYES Last administered on 11/03/18 04:19; Admin Dose 2 DROP; Start 11/02/18 at 16:00 Insulin Aspart (Novolog Insulin Pen) NOVOLOG *MILD* ALGORITHM WITH MEALS BEDTIME SC Last administered on 11/05/18 08:08; Admin Dose 3 UNIT; Start 11/02/18 at 21:00 Clonidine HCl (Catapres-Tts 3 Patch) 2 patch Q7D TRANSDERM Last administered on 11/02/18 22:54; Admin Dose 2 PATCH; Start 11/02/18 at 20:00 Trimethobenzamide HCl (Tigan) 200 mg Q6H PRN IM NAUSEA AND/OR VOMITING Last administered on 11/04/18 12:09; Admin Dose 200 MG; Start 11/03/18 at 15:00 Pantoprazole (Protonix Iv) 40 mg BID@06,18 IV Last administered on 11/05/18 05:10; Admin Dose 40 MG; Start 11/03/18 at 18:00 Epoetin Vic-epbx (RETACRIT(esrd)) 10,000 unit MoWeFr@1700 SC Last administered on 11/04/18 17:12; Admin Dose 10,000 UNIT; Start 11/04/18 at 17:00 Diphenhydramine HCl (Benadryl) 25 mg Q6H PRN PO ITCHING; Start 11/04/18 at 11:30 Ondansetron HCl (Zofran Inj) 8 mg Q4H PRN IV NAUSEA/VOMITING Last administered on 11/04/18 22:25; Admin Dose 8 MG; Start 11/04/18 at 12:30 Hydromorphone HCl (Dilaudid) 1 mg Q8H PRN IV SEVERE PAIN LEVEL 7-10 Last adm inistered on 11/05/18 05:10; Admin Dose 1 MG; Start 11/04/18 at 12:30 Lorazepam (Ativan) 1 mg Q8H PRN IV AGITATION/ANXIETY Last administered on 11/05/18 06:21; Admin Dose 1 MG; Start 11/04/18 at 14:30 Erythromycin (Erythromycin) 250 mg TID PO Last administered on 11/05/18 12:27; Admin Dose 250 MG; Start 11/04/18 at 15:00 Insulin Glargine (Lantus) 10 units DAILY@0800 SC ; Start 11/05/18 at 08:00 Doxazosin Mesylate (Cardura) 1 mg HS PO Last administered on 11/04/18 21:05; Admin Dose 1 MG; Start 11/04/18 at 21:00 Acetaminophen/ Hydrocodone Bitart ([place] (5/325)) 1 tab Q4H PRN PO MODERATE PAIN LEVEL 4-6; Start 11/04/18 at 18:30 Heparin Sodium (Porcine) (Heparin (1000 Units/ml)) 3,700 unit AFTER DIALYSIS CATHETER Last administered on 11/05/18 12:08; Admin Dose 3,700 UNIT; Start 11/05/18 at 11:00 KAYLA BARILLAS November 05, 2018 13:14
--- NOTE | 2018-11-05 13:54 | CONS ---
Assessment/Plan Assessment/Plan Hospital Course (Demo Recall) Uncontrolled type 1 DM -continue Lantus 10 units QAM -given patient is on liquid diet, will continue novolog mild dose correction scale AC and HS -will start standing Novolog once tolerating regular diet -check FS AC and HS -will monitor FS adjust regimen accordingly. Consultation Date/Type/Reason Admit Date/Time November 01, 2018 at 18:00 Initial Consult Date 11/05/18 Requesting Provider: NAYAN WILLIS Date/Time of Note DATE: 11/05/18 TIME: 13:48 24 HR Interval Summary Free Text/Dictation Patient seen and examined at bedside. She c/o leg pain and diarrhea. Liable FS readings ranging from hypoglycemia to hyperglycemia. Exam/Review of Systems Exam Vitals Vital Signs Date Temp Pulse Resp B/P (MAP) Pulse Ox O2 O2 Flow FiO2 Time Delivery Rate 11/05/18 78 12:01 11/05/18 98.0 19 190/67 100 11:42 (108) 11/05/18 Nasal 2.0 08:00 Cannula Intake and Output 11/04/18 11/04/18 11/05/18 1515:00 23:00 07:00 IntakeIntake Total 400 ml 400 ml BalanceBalance 400 ml 400 ml Exam General: Comfortable in appearance, not in acute distress. Skin appropriate for ethnicity Eye: Extraocular movements are intact, Normal conjunctiva. HENT: Normocephalic, atraumatic. Respiratory: Respirations are non-labored, Breath sounds are equal, Symmetrical chest wall expansion. Cardiovascular: S1, S2. No murmur. No LE edema Gastrointestinal: Soft, Non-tender, Non-distended, Normal bowel sounds. Integumentary: Warm to touch. Cast on right lower extremity Neurologic: Alert, Oriented. Cognition and Speech: Speech clear and coherent, Functional cognition intact. Psychiatric: Cooperative, Appropriate mood & affect. Results Result Diagram: 11/05/18 0547 11/05/18 0547 Results 24hrs Laboratory Tests Test 11/04/18 17:13 11/04/18 17:34 11/04/18 17:58 11/04/18 18:19 Bedside Glucose 30 *L 31 *L 49 *L 164 Test 11/04/18 18:45 11/04/18 21:01 11/05/18 03:50 11/05/18 05:47 Bedside Glucose 148 119 235 H White Blood Count 5.0 Red Blood Count 2.98 L Hemoglobin 8.9 L Hematocrit 28.4 L Mean Corpuscular Volume 95.3 Mean Corpuscular 29.9 Hemoglobin Mean Corpuscular 31.3 L Hemoglobin Concent Red Cell Distribution 17.2 H Width Platelet Count 200 Mean Platelet Volume 10.5 H Immature Granulocytes % 0.400 Neutrophils % 70.6 Lymphocytes % 8.9 L Monocytes % 12.5 H Eosinophils % 6.4 Basophils % 1.2 Nucleated Red Blood 0.0 Cells % Immature Granulocytes # 0.020 Neutrophils # 3.5 Lymphocytes # 0.4 L Monocytes # 0.6 Eosinophils # 0.3 Basophils # 0.1 Nucleated Red Blood 0.0 Cells # Sodium Level 137 Potassium Level 5.1 Chloride Level 102 Carbon Dioxide Level 22 Anion Gap 13 Blood Urea Nitrogen 32 H Creatinine 7.59 H Est Glomerular Filtrat 6 L Rate mL/min Glucose Level 249 #H Calcium Level 9.2 Phosphorus Level 4.5 Magnesium Level 2.2 Test 11/05/18 07:29 11/05/18 11:28 Bedside Glucose 223 H 97 Medications Medication Current Medications IV Flush (NS 3 ml) 3 ml PER PROTOCOL IV ; Start 11/01/18 at 19:30 Heparin Sodium (Porcine) (Heparin (5000 Units/1ml)) 5,000 unit Q12 SC Last administered on 11/04/18 21:29; Admin Dose 5,000 UNIT; Start 11/01/18 at 21:00 Hydromorphone HCl (Dilaudid) 4 mg Q4H PRN PO SEVERE PAIN LEVEL 7-10 Last administered on 11/05/18 02:24; Admin Dose 4 MG; Start 11/02/18 at 08:30 Calcium Carbonate (Tums) 500 mg Q2H PRN PO GASTROINTESTINAL UPSET Last administered on 11/04/18 07:56; Admin Dose 500 MG; Start 11/02/18 at 10:00 Clonidine (Catapres) 0.4 mg BID PO Last administered on 11/05/18 12:28; Admin Dose 0.4 MG; Start 11/02/18 at 21:00 Hydralazine HCl (Apresoline) 100 mg TID PO Last administered on 11/05/18 12:27; Admin Dose 100 MG; Start 11/02/18 at 13:00 Hyoscyamine (Levsin (Sl)) 0.125 mg Q8H PRN PO NAUSEA Last administered on 11/04/18 12:10; Admin Dose 0.125 MG; Start 11/02/18 at 09:30 Labetalol HCl (Normodyne) 1,200 mg BID PO Last administered on 11/05/18 12:29; Admin Dose 1,200 MG; Start 11/02/18 at 09:30 Loperamide HCl (Imodium Cap) 2 mg TID PRN PO DIARRHEA; Start 11/02/18 at 09:30 Losartan Potassium (Cozaar) 100 mg DAILY PO Last administered on 11/05/18 12:30; Admin Dose 100 MG; Start 11/02/18 at 10:00 Spironolactone (Aldactone) 25 mg BID PO Last administered on 11/04/18 21:04; Admin Dose 25 MG; Start 11/02/18 at 21:00 Sucralfate (Carafate) 1 gm QID PO Last administered on 11/05/18 12:27; Admin Dose 1 GM; Start 11/02/18 at 13:00; Stop 11/16/18 at 12:59 Miscellaneous Information 1 ea NOTE XX ; Start 11/02/18 at 10:00 Glucose (Glutose) 15 gm Q15M PRN PO DECREASED GLUCOSE; Start 11/02/18 at 10:00 Glucose (Glutose) 22.5 gm Q15M PRN PO DECREASED GLUCOSE; Start 11/02/18 at 10:00 Dextrose (D50w Syringe) 25 ml Q15M PRN IV DECREASED GLUCOSE Last administered on 11/04/18 18:07; Admin Dose 25 ML; Start 11/02/18 at 10:00 Dextrose (D50w Syringe) 50 ml Q15M PRN IV DECREASED GLUCOSE Last administered on 11/03/18 17:05; Admin Dose 50 ML; Start 11/02/18 at 10:00 Glucagon (Glucagen) 1 mg Q15M PRN IM DECREASED GLUCOSE; Start 11/02/18 at 10:00 Glucose (Glutose) 15 gm Q15M PRN BUCCAL DECREASED GLUCOSE Last administered on 11/04/18 17:39; Admin Dose 15 GM; Start 11/02/18 at 10:00 Hydralazine HCl (Apresoline) 20 mg Q6H PRN IV SBP>185 Last administered on 11/02/18 20:01; Admin Dose 20 MG; Start 11/02/18 at 11:30 Labetalol HCl (Labetalol) 20 mg Q4H PRN IV SBP>185 Last administered on 11/02/18 12:22; Admin Dose 20 MG; Start 11/02/18 at 12:00 Eye Lubricant (Artificial Tears Oph) 2 drop Q6H PRN BOTH EYES DRY EYES Last administered on 11/03/18 04:19; Admin Dose 2 DROP; Start 11/02/18 at 16:00 Insulin Aspart (Novolog Insulin Pen) NOVOLOG *MILD* ALGORITHM WITH MEALS BEDTIME SC Last administered on 11/05/18 08:08; Admin Dose 3 UNIT; Start 11/02/18 at 21:00 Clonidine HCl (Catapres-Tts 3 Patch) 2 patch Q7D TRANSDERM Last administered on 11/02/18 22:54; Admin Dose 2 PATCH; Start 11/02/18 at 20:00 Trimethobenzamide HCl (Tigan) 200 mg Q6H PRN IM NAUSEA AND/OR VOMITING Last administered on 11/04/18 12:09; Admin Dose 200 MG; Start 11/03/18 at 15:00 Pantoprazole (Protonix Iv) 40 mg BID@06,18 IV Last administered on 11/05/18 05:10; Admin Dose 40 MG; Start 11/03/18 at 18:00 Epoetin Vic-epbx (RETACRIT(esrd)) 10,000 unit MoWeFr@1700 SC Last administered on 11/04/18 17:12; Admin Dose 10,000 UNIT; Start 11/04/18 at 17:00 Diphenhydramine HCl (Benadryl) 25 mg Q6H PRN PO ITCHING; Start 11/04/18 at 11:30 Ondansetron HCl (Zofran Inj) 8 mg Q4H PRN IV NAUSEA/VOMITING Last administered on 11/04/18 22:25; Admin Dose 8 MG; Start 11/04/18 at 12:30 Hydromorphone HCl (Dilaudid) 1 mg Q8H PRN IV SEVERE PAIN LEVEL 7-10 Last ad ministered on 11/05/18 05:10; Admin Dose 1 MG; Start 11/04/18 at 12:30 Lorazepam (Ativan) 1 mg Q8H PRN IV AGITATION/ANXIETY Last administered on 11/05/18 06:21; Admin Dose 1 MG; Start 11/04/18 at 14:30 Erythromycin (Erythromycin) 250 mg TID PO Last administered on 11/05/18 12:27; Admin Dose 250 MG; Start 11/04/18 at 15:00 Insulin Glargine (Lantus) 10 units DAILY@0800 SC ; Start 11/05/18 at 08:00 Doxazosin Mesylate (Cardura) 1 mg HS PO Last administered on 11/04/18 21:05; Admin Dose 1 MG; Start 11/04/18 at 21:00 Acetaminophen/ Hydrocodone Bitart ([place] (5/325)) 1 tab Q4H PRN PO MODERATE PAIN LEVEL 4-6; Start 11/04/18 at 18:30 Heparin Sodium (Porcine) (Heparin (1000 Units/ml)) 3,700 unit AFTER DIALYSIS CATHETER Last administered on 11/05/18 12:08; Admin Dose 3,700 UNIT; Start 11/05/18 at 11:00 RAHEL FAJARDO MD November 05, 2018 13:54
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
[2018-11-05] MEDS: DOXAZOSIN 1 MG TAB PO SCH (20:48)
[2018-11-05] MEDS: LABETALOL HCL 20MG INJ IV PRN (23:37)
[2018-11-05] MEDS: hydrALAzine 20 MG INJ IV PRN (23:51)
[2018-11-06] VITALS (15 sets, daily range): BP systolic 123–219; BP diastolic 60–108; PULSE 74–82; RESP 17–18
[2018-11-06] MEDS ORDERED: hydrALAzine 20 MG INJ IV ONE (01:30)
[2018-11-06] MEDS: ONDANSETRON 4 MG INJ IV PRN ×2 (02:30→22:36)
[2018-11-06] MEDS ORDERED: LABETALOL HCL 20MG INJ IV ONE (03:30)
[2018-11-06] MEDS: LORAZEPAM 2 MG INJ IV PRN ×2 (04:27→22:36)
[2018-11-06] MEDS: PANTOPRAZOLE 40 MG INJ IV SCH ×2 (06:29→17:41)
[2018-11-06] MEDS: HYDROmorphONE 1 MG/ML SYG IV PRN ×3 (06:30→20:52)
[2018-11-06] MEDS: INSULIN GLARGINE [LANTus] (100 UNITS/ML) SYG SC SCH (07:49)
[2018-11-06] MEDS: INSULIN ASPART [NOVOLOG] 3 ML PEN SC SCH ×4 (07:49→20:47)
[2018-11-06] MEDS: SUCRALFATE 1 GM TAB PO SCH ×4 (08:33→20:33)
[2018-11-06] MEDS: ERYTHROMYCIN BASE (DR) 250 MG CAP PO SCH ×3 (08:33→20:34)
[2018-11-06] MEDS: LOSARTAN 50 MG TAB PO SCH (08:33)
[2018-11-06] MEDS: LABETALOL 200 MG TAB PO SCH ×2 (08:36→20:33)
[2018-11-06] MEDS: HEPARIN 5,000 UNIT/1 ML VIAL SC SCH ×2 (08:47→20:46)
--- NOTE | 2018-11-06 08:49 | PN ---
DATE: 11/06/2018 SUBJECTIVE: The patient is stable, no events overnight. No fever, chills, nausea or vomiting. OBJECTIVE: VITAL SIGNS: Blood pressure is 123/60, pulse 81, respirations 17, temperature 98.2. HEENT: Head is normocephalic. NECK: Supple. HEART: Regular rate. LUNGS: Show diminished breath sounds at the base. ABDOMEN: Soft, nontender to palpation without rebound or guarding. EXTREMITIES: Negative for clubbing, cyanosis, no edema. DERMATOLOGIC: No rashes. MUSCULOSKELETAL: No joint effusion. NEUROLOGIC: No change in exam. MEDICATIONS: Reviewed. LABORATORY DATA: Reviewed. IMAGING STUDIES: Reviewed. ASSESSMENT AND PLAN: 1. End-stage renal disease. The patient had hemodialysis yesterday, tolerated well. Plan is for he modialysis again tomorrow. 2. Anemia. Continue to monitor hemoglobin and hematocrit levels. We will continue Epogen. 3. Mineral bone disorder, monitor calcium and phosphorus levels. Continue phosphate binders as need ed. 4. Hypertension. Continue current blood pressure regimen. Continue ultrafiltration with dialysis. Continue pain control. Adjust medications as needed. 5. Diabetes. Continue current insulin regimen. 6. Nausea and vomiting secondary to gastroparesis. Continue to monitor. 7. Right tibiofibular fracture. Continue conservative care. Continue pain control. 8. Hyperkalemia, resolved. 9. Chronic pain syndrome. Continue current pain regimen. Dictated By: JUJU MARTINEZ DO NR/NTS Conf#: [id number] DID#: [id number] CC: NAYAN WILLIS; BLAYNE BLANTON MD; JERAMIE KEE MD;*EndCC*
[2018-11-06] MEDS: SPIRONOLACTONE 50 MG TAB PO SCH ×2 (08:54→20:33)
--- NOTE | 2018-11-06 10:13 | PN ---
Date/Time of Note Date/Time of Note DATE: 11/06/18 TIME: 10:13 Assessment/Plan VTE Prophylaxis Risk score (from Ns)>0 risk: 11 SCD applied (from Ns): No SCD contraindicated: other Pharmacological prophylaxis: heparin Lines/Catheters IV [facility]from [facility] Permacath Urinary Cath still in place: No Assessment/Plan Hospital Course S: Patient had dialysis yesterday. Seen by GI, orthopedic surgery, endocrinology, and renal team yesterday. Had some high blood pressure overnight, but now better controlled this morning. Per nursing staff patient taking p.o. blood pressure medicines this morning. O: VS - see below PE: General: lying in bed, answering questions appropriately HEENT: Atraumatic, normocephalic. Moist mucous membranes, clear oropharynx Neck: Supple with full range of motion. No rigidity or meningismus Chest: Right Tremayne cath Lungs: Clear to auscultation bilaterally no crackles rales or wheezing Heart: Normal S1-S2, Regular rhythm and rate. No murmur, S3, or S4 Abdomen: Soft , nontender, nondistended , bowel sounds are present. No guarding no rebound tenderness Extremities: Right lower extremity in brace, skin clean appearing, warm to touch, distal pulses palpable, no cyanosis noted Assessment/Plan: 28 yo woman with type I diabetes, ESRD on MWF dialysis, diabetic gastroparesis and multiple allergies presents after recent admission with high blood sugars, pain and nausea. #Type I diabetes: Patient has longstanding uncontrolled type 1 DM diagnosed at age 6 complicated by retinopathy, neuropathy and ESRD. Latest A1c equals 7.4. Patient with mild DKA, now resolved, appreciate endocrinology recommendations -For now continue sliding scale insulin and Lantus 10 units every morning per endocrinology recommendations -they have indicated they will put patient back on short acting insulin as scheduled as well when patient is back on regular diet -Monitor sugars #Nausea/vomiting: - Chronic diabetic gastroparesis. -For now continue PRN Tigan, Zofran, and Levsin. - Continue PPI and carafate. -For now continue full liquid diet, awaiting GI reevaluation. -For now continue 3 times daily erythromycin (allergy to Reglan) -Per GI team, no plans for EGD until patient is medically cleared, i.e. patient first gets the right heart cath for work-up of possible pulmonary hypertension. Case management is working on setting this up as an outpatient appointment now. # HTN- controlled - on home meds. - Continue p.o. labetalol, clonidine, spironolactone, losartan, and hydralazine. -Continue IV as needed anti-hypertensive medicines as well #ESRD-renal team on the case - Continue scheduled HD per nephrology. #Right tib/fib fracture-orthopedics Dr. Babcock consulted on last admission- recommended for long leg brace with a dial lock - now in place. -For now keep limb immobile-per orthopedic surgery reconsult yesterday, they are recommending non-weightbearing status for the right lower extremity. Adjustment also made to leg brace that is now back in place - Evaluated by ARU last admission and declined. - Continue PO dilaudid as needed. Avoid reliance on IV opiates as much as necessary. -Follow-up PT eval DVT: heparin GI: PPI twice daily Result Diagram: 11/05/1847 11/05/1847 Results 24hrs Laboratory Tests Test 11/05/18 11:28 11/05/18 17:27 11/05/18 20:46 11/06/18 07:42 Bedside Glucose 97 121 135 424 *H Exam/Review of Systems Exam Vitals Vital Signs Date Temp Pulse Resp B/P (MAP) Pulse Ox O2 O2 Flow FiO2 Time Delivery Rate 11/06/18 81 08:04 11/06/18 99.2 17 123/60 99 07:20 (81) 11/05/18 Nasal 1.0 20:30 Cannula Intake and Output 11/05/18 11/05/18 11/06/18 1515:00 23:00 07:00 IntakeIntake Total 400 ml 400 ml OutputOutput Total 2600 ml BalanceBalance -2600 ml 400 ml 400 ml Results Results 24hrs Laboratory Tests Test 11/05/18 11:28 11/05/18 17:27 11/05/18 20:46 11/06/18 07:42 Bedside Glucose 97 121 135 424 *H Medications Medication Current Medications IV Flush (NS 3 ml) 3 ml PER PROTOCOL IV ; Start 11/01/18 at 19:30 Heparin Sodium (Porcine) (Heparin (5000 Units/1ml)) 5,000 unit Q12 SC Last administered on 11/06/18at 08:47; Admin Dose 5,000 UNIT; Start 11/01/18 at 21:00 Hydromorphone HCl (Dilaudid) 4 mg Q4H PRN PO SEVERE PAIN LEVEL 7-10 Last administered on 11/05/18 02:24; Admin Dose 4 MG; Start 11/02/18 at 08:30 Calcium Carbonate (Tums) 500 mg Q2H PRN PO GASTROINTESTINAL UPSET Last administered on 11/04/18 07:56; Admin Dose 500 MG; Start 11/02/18 at 10:00 Clonidine (Catapres) 0.4 mg BID PO Last administered on 11/06/18 08:36; Admin Dose 0.4 MG; Start 11/02/18 at 21:00 Hydralazine HCl (Apresoline) 100 mg TID PO Last administered on 11/06/18 08:35; Admin Dose 100 MG; Start 11/02/18 at 13:00 Hyoscyamine (Levsin (Sl)) 0.125 mg Q8H PRN PO NAUSEA Last administered on 11/04/18 12:10; Admin Dose 0.125 MG; Start 11/02/18 at 09:30 Labetalol HCl (Normodyne) 1,200 mg BID PO Last administered on 11/06/18 08:36; Admin Dose 1,200 MG; Start 11/02/18 at 09:30 Loperamide HCl (Imodium Cap) 2 mg TID PRN PO DIARRHEA; Start 11/02/18 at 09:30 Losartan Potassium (Cozaar) 100 mg DAILY PO Last administered on 11/06/18 08:33; Admin Dose 100 MG; Start 11/02/18 at 10:00 Sucralfate (Carafate) 1 gm QID PO Last administered on 11/06/18 08:33; Admin Dose 1 GM; Start 11/02/18 at 13:00; Stop 11/16/18 at 12:59 Miscellaneous Information 1 ea NOTE XX ; Start 11/02/18 at 10:00 Glucose (Glutose) 15 gm Q15M PRN PO DECREASED GLUCOSE; Start 11/02/18 at 10:00 Glucose (Glutose) 22.5 gm Q15M PRN PO DECREASED GLUCOSE; Start 11/02/18 at 10:00 Dextrose (D50w Syringe) 25 ml Q15M PRN IV DECREASED GLUCOSE Last administered on 11/04/18 18:07; Admin Dose 25 ML; Start 11/02/18 at 10:00 Dextrose (D50w Syringe) 50 ml Q15M PRN IV DECREASED GLUCOSE Last administered on 11/03/18 17:05; Admin Dose 50 ML; Start 11/02/18 at 10:00 Glucagon (Glucagen) 1 mg Q15M PRN IM DECREASED GLUCOSE; Start 11/02/18 at 10:00 Glucose (Glutose) 15 gm Q15M PRN BUCCAL DECREASED GLUCOSE Last administered on 11/04/18 17:39; Admin Dose 15 GM; Start 11/02/18 at 10:00 Hydralazine HCl (Apresoline) 20 mg Q6H PRN IV SBP>185 Last administered on 11/05/18 23:51; Admin Dose 20 MG; Start 11/02/18 at 11:30 Labetalol HCl (Labetalol) 20 mg Q4H PRN IV SBP>185 Last administered on 11/05/18 23:37; Admin Dose 20 MG; Start 11/02/18 at 12:00 Eye Lubricant (Artificial Tears Oph) 2 drop Q6H PRN BOTH EYES DRY EYES Last a dministered on 11/03/18 04:19; Admin Dose 2 DROP; Start 11/02/18 at 16:00 Insulin Aspart (Novolog Insulin Pen) NOVOLOG *MILD* ALGORITHM WITH MEALS BEDTIME SC Last administered on 11/06/18 07:49; Admin Dose 7 UNIT; Start 11/02/18 at 21:00 Clonidine HCl (Catapres-Tts 3 Patch) 2 patch Q7D TRANSDERM Last administered on 11/02/18 22:54; Admin Dose 2 PATCH; Start 11/02/18 at 20:00 Trimethobenzamide HCl (Tigan) 200 mg Q6H PRN IM NAUSEA AND/OR VOMITING Last administered on 11/04/18 12:09; Admin Dose 200 MG; Start 11/03/18 at 15:00 Pantoprazole (Protonix Iv) 40 mg BID@18 IV Last administered on 11/06/18 06:29; Admin Dose 40 MG; Start 11/03/18 at 18:00 Epoetin Vic-epbx (RETACRIT(esrd)) 10,000 unit MoWeFr@1700 SC Last administered on 11/04/18 17:12; Admin Dose 10,000 UNIT; Start 11/04/18 at 17:00 Diphenhydramine HCl (Benadryl) 25 mg Q6H PRN PO ITCHING; Start 11/04/18 at 11:30 Ondansetron HCl (Zofran Inj) 8 mg Q4H PRN IV NAUSEA/VOMITING Last administered on 11/06/18 02:30; Admin Dose 8 MG; Start 11/04/18 at 12:30 Lorazepam (Ativan) 1 mg Q8H PRN IV AGITATION/ANXIETY Last administered on 04:27; Admin Dose 1 MG; Start 11/04/18 at 14:30 Erythromycin (Erythromycin) 250 mg TID PO Last administered on 11/06/18 08:33; Admin Dose 250 MG; Start 11/04/18 at 15:00 Insulin Glargine (Lantus) 10 units DAILY@0800 SC Last administered on 11/06/18 07:49; Admin Dose 10 UNITS; Start 11/05/18 at 08:00 Doxazosin Mesylate (Cardura) 1 mg HS PO Last administered on 11/05/18 20:48; Admin Dose 1 MG; Start 11/04/18 at 21:00 Acetaminophen/ Hydrocodone Bitart ([place] (5/325)) 1 tab Q4H PRN PO MODERATE PAIN LEVEL 4-6; Start 11/04/18 at 18:30 Heparin Sodium (Porcine) (Heparin (1000 Units/ml)) 3,700 unit AFTER DIALYSIS CATHETER Last administered on 11/05/18 12:08; Admin Dose 3,700 UNIT; Start 11/05/18 at 11:00 Spironolactone (Aldactone) 50 mg BID PO ; Start 11/06/18 at 09:00 Hydromorphone HCl (Dilaudid) 2 mg Q6H PRN IV SEVERE PAIN LEVEL 7-10; Start 11/06/18 at 10:30 NAYAN WILLIS November 06, 2018 10:13
[2018-11-06] MEDS ORDERED: HYDROmorphONE 2 MG/ML SYG IV PRN ×2 (10:30→16:30)
--- NOTE | 2018-11-06 12:27 | PN ---
Date/Time of Note Date/Time of Note DATE: 11/06/18 TIME: 12:25 Assessment/Plan VTE Prophylaxis Risk score (from Ns)>0 risk: 8 SCD applied (from Ns): No SCD contraindicated: other (scds) Pharmacological prophylaxis: other (scds) Lines/Catheters [facility] PERMACATH Urinary Cath still in place: No Assessment/Plan Hospital Course Summary Assessment and Plan: Assessment: History of gastroparesis Type I diabetes- with hyperglycemia History of PUD IBS - D HTN Normocytic anemia ESRD- on HD Right tib/fib fracture Partially blind Plan: Continue antiemetic therapy Continue erythromycin-Reglan will not be started as patient does have an allergy Continue PPI/Carafate x 4weeks- given recent findings of Will increase diet to soft- renal/diabetic Monitor need for EGD if deemed necessary patient will require medical clearance given severe pulmonary hypertension Patient seen in collaboration with Dr. Paul Subjective: Patient states she feels a little better today, less nausea. Requesting to advance her diet. No over night events noted Exam PHYSICAL EXAMINATION: GENERAL: Partially blind chronically ill-appearing alert & oriented x 3, in no acute distress SKIN: Multiple bruises, dialysis access EARS/NOSE AND THROAT: Ears normal, nose normal, oropharynx normal. NECK: Supple, no masses. CHEST: Inspection within normal limits. CARDIOVASCULAR: Heart: Regular rate and rhythm RESPIRATORY: Lungs clear to auscultation. GASTROINTESTINAL AND LIVER: Abdomen: Soft, mild tenderness, non-distended, no hernias, no masses, normoactive bowel sounds. Rectal: Deferred. Result Diagram: 11/06/18 1025 11/06/18 1025 Results 24hrs Laboratory Tests Test 11/05/18 17:27 11/05/18 20:46 11/06/18 07:42 11/06/18 10:25 Bedside Glucose 121 135 424 *H White Blood Count 6.5 # Red Blood Count 2.71 L Hemoglobin 8.2 L Hematocrit 26.2 L Mean Corpuscular Volume 96.7 Mean Corpuscular 30.3 Hemoglobin Mean Corpuscular 31.3 L Hemoglobin Concent Red Cell Distribution 17.0 H Width Platelet Count 200 Mean Platelet Volume 10.3 Immature Granulocytes % 0.300 Neutrophils % 76.0 Lymphocytes % 6.0 L Monocytes % 12.6 H Eosinophils % 4.0 Basophils % 1.1 Nucleated Red Blood 0.0 Cells % Immature Granulocytes # 0.020 Neutrophils # 5.0 Lymphocytes # 0.4 L Monocytes # 0.8 Eosinophils # 0.3 Basophils # 0.1 Nucleated Red Blood 0.0 Cells # Sodium Level 138 Potassium Level 4.7 Chloride Level 103 Carbon Dioxide Level 20 L Anion Gap 15 H Blood Urea Nitrogen 25 H Creatinine 5.29 #H Est Glomerular Filtrat 10 L Rate mL/min Glucose Level 361 H Calcium Level 8.8 Test 11/06/18 11:26 Bedside Glucose 311 H Exam/Review of Systems Exam Vitals Vital Signs Date Temp Pulse Resp B/P (MAP) Pulse Ox O2 O2 Flow FiO2 Time Delivery Rate 11/06/18 77 12:08 11/06/18 98.2 18 208/95 100 11:46 (132) 11/06/18 Nasal 1.0 07:40 Cannula Intake and Output 11/05/18 11/05/18 11/06/18 1515:00 23:00 07:00 IntakeIntake Total 400 ml 400 ml OutputOutput Total 2600 ml BalanceBalance -2600 ml 400 ml 400 ml Results Results 24hrs Laboratory Tests Test 11/05/18 17:27 11/05/18 20:46 11/06/18 07:42 11/06/18 10:25 Bedside Glucose 121 135 424 *H White Blood Count 6.5 # Red Blood Count 2.71 L Hemoglobin 8.2 L Hematocrit 26.2 L Mean Corpuscular Volume 96.7 Mean Corpuscular 30.3 Hemoglobin Mean Corpuscular 31.3 L Hemoglobin Concent Red Cell Distribution 17.0 H Width Platelet Count 200 Mean Platelet Volume 10.3 Immature Granulocytes % 0.300 Neutrophils % 76.0 Lymphocytes % 6.0 L Monocytes % 12.6 H Eosinophils % 4.0 Basophils % 1.1 Nucleated Red Blood 0.0 Cells % Immature Granulocytes # 0.020 Neutrophils # 5.0 Lymphocytes # 0.4 L Monocytes # 0.8 Eosinophils # 0.3 Basophils # 0.1 Nucleated Red Blood 0.0 Cells # Sodium Level 138 Potassium Level 4.7 Chloride Level 103 Carbon Dioxide Level 20 L Anion Gap 15 H Blood Urea Nitrogen 25 H Creatinine 5.29 #H Est Glomerular Filtrat 10 L Rate mL/min Glucose Level 361 H Calcium Level 8.8 Test 11/06/18 11:26 Bedside Glucose 311 H Medications Medication Current Medications IV Flush (NS 3 ml) 3 ml PER PROTOCOL IV ; Start 11/01/18 at 19:30 Heparin Sodium (Porcine) (Heparin (5000 Units/1ml)) 5,000 unit Q12 SC Last administered on 11/06/18 08:47; Admin Dose 5,000 UNIT; Start 11/01/18 at 21:00 Hydromorphone HCl (Dilaudid) 4 mg Q4H PRN PO SEVERE PAIN LEVEL 7-10 Last admin istered on 11/05/18 02:24; Admin Dose 4 MG; Start 11/02/18 at 08:30 Calcium Carbonate (Tums) 500 mg Q2H PRN PO GASTROINTESTINAL UPSET Last administered on 11/04/18 07:56; Admin Dose 500 MG; Start 11/02/18 at 10:00 Clonidine (Catapres) 0.4 mg BID PO Last administered on 11/06/18 08:36; Admin Dose 0.4 MG; Start 11/02/18 at 21:00 Hydralazine HCl (Apresoline) 100 mg TID PO Last administered on 11/06/18 12:19; Admin Dose 100 MG; Start 11/02/18 at 13:00 Hyoscyamine (Levsin (Sl)) 0.125 mg Q8H PRN PO NAUSEA Last administered on 11/04/18 12:10; Admin Dose 0.125 MG; Start 11/02/18 at 09:30 Labetalol HCl (Normodyne) 1,200 mg BID PO Last administered on 11/06/18 08:36; Admin Dose 1,200 MG; Start 11/02/18 at 09:30 Loperamide HCl (Imodium Cap) 2 mg TID PRN PO DIARRHEA; Start 11/02/18 at 09:30 Losartan Potassium (Cozaar) 100 mg DAILY PO Last administered on 11/06/18 08:33; Admin Dose 100 MG; Start 11/02/18 at 10:00 Sucralfate (Carafate) 1 gm QID PO Last administered on 11/06/18 12:18; Admin Dose 1 GM; Start 11/02/18 at 13:00; Stop 11/16/18 at 12:59 Miscellaneous Information 1 ea NOTE XX ; Start 11/02/18 at 10:00 Glucose (Glutose) 15 gm Q15M PRN PO DECREASED GLUCOSE; Start 11/02/18 at 10:00 Glucose (Glutose) 22.5 gm Q15M PRN PO DECREASED GLUCOSE; Start 11/02/18 at 10:00 Dextrose (D50w Syringe) 25 ml Q15M PRN IV DECREASED GLUCOSE Last administered on 11/04/18 18:07; Admin Dose 25 ML; Start 11/02/18 at 10:00 Dextrose (D50w Syringe) 50 ml Q15M PRN IV DECREASED GLUCOSE Last administered on 11/03/18 17:05; Admin Dose 50 ML; Start 11/02/18 at 10:00 Glucagon (Glucagen) 1 mg Q15M PRN IM DECREASED GLUCOSE; Start 11/02/18 at 10:00 Glucose (Glutose) 15 gm Q15M PRN BUCCAL DECREASED GLUCOSE Last administered on 11/04/18 17:39; Admin Dose 15 GM; Start 11/02/18 at 10:00 Hydralazine HCl (Apresoline) 20 mg Q6H PRN IV SBP>185 Last administered on 11/05/18 23:51; Admin Dose 20 MG; Start 11/02/18 at 11:30 Labetalol HCl (Labetalol) 20 mg Q4H PRN IV SBP>185 Last administered on 11/05/18 23:37; Admin Dose 20 MG; Start 11/02/18 at 12:00 Eye Lubricant (Artificial Tears Oph) 2 drop Q6H PRN BOTH EYES DRY EYES Last administered on 11/03/18 04:19; Admin Dose 2 DROP; Start 11/02/18 at 16:00 Insulin Aspart (Novolog Insulin Pen) NOVOLOG *MILD* ALGORITHM WITH MEALS BEDTIME SC Last administered on 11/06/18 11:31; Admin Dose 5 UNIT; Start 11/02/18 at 21:00 Clonidine HCl (Catapres-Tts 3 Patch) 2 patch Q7D TRANSDERM Last administered on 11/02/18 22:54; Admin Dose 2 PATCH; Start 11/02/18 at 20:00 Trimethobenzamide HCl (Tigan) 200 mg Q6H PRN IM NAUSEA AND/OR VOMITING Last administered on 11/04/18 12:09; Admin Dose 200 MG; Start 11/03/18 at 15:00 Pantoprazole (Protonix Iv) 40 mg BID@06,18 IV Last administered on 11/06/18 06:29; Admin Dose 40 MG; Start 11/03/18 at 18:00 Epoetin Vic-epbx (RETACRIT(esrd)) 10,000 unit MoWeFr@1700 SC Last administered on 11/04/18 17:12; Admin Dose 10,000 UNIT; Start 11/04/18 at 17:00 Diphenhydramine HCl (Benadryl) 25 mg Q6H PRN PO ITCHING; Start 11/04/18 at 11:30 Ondansetron HCl (Zofran Inj) 8 mg Q4H PRN IV NAUSEA/VOMITING Last administered on 11/06/18 02:30; Admin Dose 8 MG; Start 11/04/18 at 12:30 Lorazepam (Ativan) 1 mg Q8H PRN IV AGITATION/ANXIETY Last administered on 11/06/18 04:27; Admin Dose 1 MG; Start 11/04/18 at 14:30 Erythromycin (Erythromycin) 250 mg TID PO Last administered on 11/06/18 12:18; Admin Dose 250 MG; Start 11/04/18 at 15:00 Insulin Glargine (Lantus) 10 units DAILY@0800 SC Last administered on 11/06/18 07:49; Admin Dose 10 UNITS; Start 11/05/18 at 08:00 Doxazosin Mesylate (Cardura) 1 mg HS PO Last administered on 11/05/18 20:48; Admin Dose 1 MG; Start 11/04/18 at 21:00 Acetaminophen/ Hydrocodone Bitart ([place] (5/325)) 1 tab Q4H PRN PO MODERATE PAIN LEVEL 4-6; Start 11/04/18 at 18:30 Heparin Sodium (Porcine) (Heparin (1000 Units/ml)) 3,700 unit AFTER DIALYSIS CATHETER Last administered on 11/05/18 12:08; Admin Dose 3,700 UNIT; Start 11/05/18 at 11:00 Spironolactone (Aldactone) 50 mg BID PO ; Start 11/06/18 at 09:00 Hydromorphone HCl (Dilaudid) 1 mg Q6H PRN IV SEVERE PAIN LEVEL 7-10; Start 11/06/18 at 10:30 KAYLA BARILLAS November 06, 2018 12:27
--- NOTE | 2018-11-06 13:48 | CONS ---
Assessment/Plan Assessment/Plan Hospital Course (Demo Recall) Uncontrolled type 1 DM -will split Lantus into BID dosing -give Lantus 4 units x1 tonight -start Lantus 6 units SC BID on 11/07/18 -given patient is on liquid diet, will continue novolog mild dose correction scale AC and HS -will start standing Novolog once tolerating regular diet -check FS AC and HS -will monitor FS adjust regimen accordingly. Consultation Date/Type/Reason Admit Date/Time November 01, 2018 at 18:00 Initial Consult Date 11/05/18 Requesting Provider: NAYAN WILLIS Date/Time of Note DATE: 11/06/18 TIME: 13:46 24 HR Interval Summary Free Text/Dictation Patient seen and examined at bedside. FS reviewed, AM hyperglycemia noted. She remains on liquid diet but not eating much. Exam/Review of Systems Exam Vitals Vital Signs Date Temp Pulse Resp B/P (MAP) Pulse Ox O2 O2 Flow FiO2 Time Delivery Rate 11/06/18 77 12:08 11/06/18 98.2 18 208/95 100 11:46 (132) 11/06/18 Nasal 1.0 07:40 Cannula Intake and Output 11/05/18 11/05/18 11/06/18 1515:00 23:00 07:00 IntakeIntake Total 400 ml 400 ml OutputOutput Total 2600 ml BalanceBalance -2600 ml 400 ml 400 ml Exam General: Comfortable in appearance, not in acute distress. Skin appropriate for ethnicity Eye: Extraocular movements are intact, Normal conjunctiva. HENT: Normocephalic, atraumatic. Respiratory: Respirations are non-labored, Breath sounds are equal, Symmetrical chest wall expansion. Cardiovascular: S1, S2. No murmur. No LE edema Gastrointestinal: Soft, Non-tender, Non-distended, Normal bowel sounds. Integumentary: Warm to touch. Cast on right lower extremity Neurologic: Alert, Oriented. Cognition and Speech: Speech clear and coherent, Functional cognition intact. Psychiatric: Cooperative, Appropriate mood & affect. Results Result Diagram: 11/06/18 1025 11/06/18 1025 Results 24hrs Laboratory Tests Test 11/05/18 17:27 11/05/18 20:46 11/06/18 07:42 11/06/18 10:25 Bedside Glucose 121 135 424 *H White Blood Count 6.5 # Red Blood Count 2.71 L Hemoglobin 8.2 L Hematocrit 26.2 L Mean Corpuscular Volume 96.7 Mean Corpuscular 30.3 Hemoglobin Mean Corpuscular 31.3 L Hemoglobin Concent Red Cell Distribution 17.0 H Width Platelet Count 200 Mean Platelet Volume 10.3 Immature Granulocytes % 0.300 Neutrophils % 76.0 Lymphocytes % 6.0 L Monocytes % 12.6 H Eosinophils % 4.0 Basophils % 1.1 Nucleated Red Blood 0.0 Cells % Immature Granulocytes # 0.020 Neutrophils # 5.0 Lymphocytes # 0.4 L Monocytes # 0.8 Eosinophils # 0.3 Basophils # 0.1 Nucleated Red Blood 0.0 Cells # Sodium Level 138 Potassium Level 4.7 Chloride Level 103 Carbon Dioxide Level 20 L Anion Gap 15 H Blood Urea Nitrogen 25 H Creatinine 5.29 #H Est Glomerular Filtrat 10 L Rate mL/min Glucose Level 361 H Calcium Level 8.8 Test 11/06/18 11:26 Bedside Glucose 311 H Medications Medication Current Medications IV Flush (NS 3 ml) 3 ml PER PROTOCOL IV ; Start 11/01/18 at 19:30 Heparin Sodium (Porcine) (Heparin (5000 Units/1ml)) 5,000 unit Q12 SC Last administered on 11/06/18 08:47; Admin Dose 5,000 UNIT; Start 11/01/18 at 21:00 Hydromorphone HCl (Dilaudid) 4 mg Q4H PRN PO SEVERE PAIN LEVEL 7-10 Last a dministered on 11/05/18 02:24; Admin Dose 4 MG; Start 11/02/18 at 08:30 Calcium Carbonate (Tums) 500 mg Q2H PRN PO GASTROINTESTINAL UPSET Last administered on 11/04/18 07:56; Admin Dose 500 MG; Start 11/02/18 at 10:00 Clonidine (Catapres) 0.4 mg BID PO Last administered on 11/06/18 08:36; Admin Dose 0.4 MG; Start 11/02/18 at 21:00 Hydralazine HCl (Apresoline) 100 mg TID PO Last administered on 11/06/18 12:19; Admin Dose 100 MG; Start 11/02/18 at 13:00 Hyoscyamine (Levsin (Sl)) 0.125 mg Q8H PRN PO NAUSEA Last administered on 11/04/18 12:10; Admin Dose 0.125 MG; Start 11/02/18 at 09:30 Labetalol HCl (Normodyne) 1,200 mg BID PO Last administered on 11/06/18 08:36; Admin Dose 1,200 MG; Start 11/02/18 at 09:30 Loperamide HCl (Imodium Cap) 2 mg TID PRN PO DIARRHEA; Start 11/02/18 at 09:30 Losartan Potassium (Cozaar) 100 mg DAILY PO Last administered on 11/06/18 08:33; Admin Dose 100 MG; Start 11/02/18 at 10:00 Sucralfate (Carafate) 1 gm QID PO Last administered on 11/06/18 12:18; Admin Dose 1 GM; Start 11/02/18 at 13:00; Stop 11/16/18 at 12:59 Miscellaneous Information 1 ea NOTE XX ; Start 11/02/18 at 10:00 Glucose (Glutose) 15 gm Q15M PRN PO DECREASED GLUCOSE; Start 11/02/18 at 10:00 Glucose (Glutose) 22.5 gm Q15M PRN PO DECREASED GLUCOSE; Start 11/02/18 at 10:00 Dextrose (D50w Syringe) 25 ml Q15M PRN IV DECREASED GLUCOSE Last administered on 11/04/18 18:07; Admin Dose 25 ML; Start 11/02/18 at 10:00 Dextrose (D50w Syringe) 50 ml Q15M PRN IV DECREASED GLUCOSE Last administered on 11/03/18 17:05; Admin Dose 50 ML; Start 11/02/18 at 10:00 Glucagon (Glucagen) 1 mg Q15M PRN IM DECREASED GLUCOSE; Start 11/02/18 at 10:00 Glucose (Glutose) 15 gm Q15M PRN BUCCAL DECREASED GLUCOSE Last administered on 11/04/18 17:39; Admin Dose 15 GM; Start 11/02/18 at 10:00 Hydralazine HCl (Apresoline) 20 mg Q6H PRN IV SBP>185 Last administered on 11/05/18 23:51; Admin Dose 20 MG; Start 11/02/18 at 11:30 Labetalol HCl (Labetalol) 20 mg Q4H PRN IV SBP>185 Last administered on 11/05/18 23:37; Admin Dose 20 MG; Start 11/02/18 at 12:00 Eye Lubricant (Artificial Tears Oph) 2 drop Q6H PRN BOTH EYES DRY EYES Last administered on 11/03/18 04:19; Admin Dose 2 DROP; Start 11/02/18 at 16:00 Insulin Aspart (Novolog Insulin Pen) NOVOLOG *MILD* ALGORITHM WITH MEALS BEDTIME SC Last administered on 11/06/18 11:31; Admin Dose 5 UNIT; Start 11/02/18 at 21:00 Clonidine HCl (Catapres-Tts 3 Patch) 2 patch Q7D TRANSDERM Last administered on 11/02/18 22:54; Admin Dose 2 PATCH; Start 11/02/18 at 20:00 Trimethobenzamide HCl (Tigan) 200 mg Q6H PRN IM NAUSEA AND/OR VOMITING Last administered on 11/04/18 12:09; Admin Dose 200 MG; Start 11/03/18 at 15:00 Pantoprazole (Protonix Iv) 40 mg BID@06,18 IV Last administered on 11/06/18 06:29; Admin Dose 40 MG; Start 11/03/18 at 18:00 Epoetin Vic-epbx (RETACRIT(esrd)) 10,000 unit MoWeFr@1700 SC Last administered on 11/04/18 17:12; Admin Dose 10,000 UNIT; Start 11/04/18 at 17:00 Diphenhydramine HCl (Benadryl) 25 mg Q6H PRN PO ITCHING; Start 11/04/18 at 11:30 Ondansetron HCl (Zofran Inj) 8 mg Q4H PRN IV NAUSEA/VOMITING Last administered on 11/06/18 02:30; Admin Dose 8 MG; Start 11/04/18 at 12:30 Lorazepam (Ativan) 1 mg Q8H PRN IV AGITATION/ANXIETY Last administered on 11/06/18 04:27; Admin Dose 1 MG; Start 11/04/18 at 14:30 Erythromycin (Erythromycin) 250 mg TID PO Last administered on 11/06/18 12:18; Admin Dose 250 MG; Start 11/04/18 at 15:00 Insulin Glargine (Lantus) 10 units DAILY@0800 SC Last administered on 11/06/18at 07:49; Admin Dose 10 UNITS; Start 11/05/18 at 08:00 Doxazosin Mesylate (Cardura) 1 mg HS PO Last administered on 11/05/18at 20:48; Admin Dose 1 MG; Start 11/04/18 at 21:00 Acetaminophen/ Hydrocodone Bitart ([place] (5/325)) 1 tab Q4H PRN PO MODERATE PAIN LEVEL 4-6; Start 11/04/18 at 18:30 Heparin Sodium (Porcine) (Heparin (1000 Units/ml)) 3,700 unit AFTER DIALYSIS CATHETER Last administered on 11/05/18at 12:08; Admin Dose 3,700 UNIT; Start 11/05/18 at 11:00 Spironolactone (Aldactone) 50 mg BID PO ; Start 11/06/18 at 09:00 Hydromorphone HCl (Dilaudid) 1 mg Q6H PRN IV SEVERE PAIN LEVEL 7-10; Start 11/06/18 at 10:30 RAHEL FAJARDO MD November 06, 2018 13:48
[2018-11-06] MEDS: hydrALAzine 20 MG INJ IV PRN (13:59)
[2018-11-06] MEDS: EPOETIN ALFA-EPBX (ESRD) 10,000 UNIT/ML VIAL SC SCH (17:40)
[2018-11-06] MEDS: DOXAZOSIN 1 MG TAB PO SCH (20:34)
[2018-11-06] MEDS ORDERED: INSULIN GLARGINE [LANTus] (100 UNITS/ML) SYG SC ONE (21:00)
[2018-11-07] VITALS (25 sets, daily range): BP systolic 144–221; BP diastolic 67–118; PULSE 74–80; RESP 18–20
[2018-11-07] MEDS: hydrALAzine 20 MG INJ IV PRN ×2 (02:20→17:21)
[2018-11-07] MEDS: HYDROmorphONE 1 MG/ML SYG IV PRN ×4 (02:31→21:36)
[2018-11-07] MEDS: LABETALOL HCL 20MG INJ IV PRN ×2 (04:33→18:22)
[2018-11-07] MEDS: HYDROmorphONE 2 MG TAB PO PRN ×2 (05:38→18:18)
[2018-11-07] MEDS: PANTOPRAZOLE 40 MG INJ IV SCH ×2 (06:34→17:22)
[2018-11-07] MEDS: LORAZEPAM 2 MG INJ IV PRN ×2 (06:34→22:56)
[2018-11-07] MEDS: INSULIN ASPART [NOVOLOG] 3 ML PEN SC SCH ×5 (08:03→21:00)
[2018-11-07] MEDS: SUCRALFATE 1 GM TAB PO SCH ×4 (08:54→22:24)
[2018-11-07] MEDS: SPIRONOLACTONE 50 MG TAB PO SCH ×2 (08:55→21:49)
[2018-11-07] MEDS: ERYTHROMYCIN BASE (DR) 250 MG CAP PO SCH ×3 (08:55→21:47)
[2018-11-07] MEDS: LABETALOL 200 MG TAB PO SCH ×3 (09:00→21:48)
[2018-11-07] MEDS: LOSARTAN 50 MG TAB PO SCH (09:00)
[2018-11-07] MEDS: INSULIN GLARGINE [LANTus] (100 UNITS/ML) SYG SC SCH ×2 (09:13→22:00)
[2018-11-07] MEDS: HEPARIN 5,000 UNIT/1 ML VIAL SC SCH ×2 (09:16→21:00)
--- NOTE | 2018-11-07 10:03 | PN ---
DATE: 11/07/2018 SUBJECTIVE: The patient is stable, no events overnight. No fever, chills, nausea or vomiting. OBJECTIVE: VITAL SIGNS: Blood pressure is 174/67, pulse 75, respirations 20, temperature 98.3. HEENT: Head is normocephalic. NECK: Supple. HEART: Regular rate. LUNGS: Show diminished breath sounds at the base. ABDOMEN: Soft, nontender to palpation. No rebound or guarding. EXTREMITIES: Negative for clubbing, cyanosis, no edema. DERMATOLOGIC: No rashes. MUSCULOSKELETAL: No joint effusion. NEUROLOGIC: No change in exam. MEDICATIONS: Reviewed. LABORATORY DATA: Reviewed. IMAGING STUDIES: Reviewed. ASSESSMENT AND PLAN: 1. End-stage renal disease. Plan is for hemodialysis for 3 hours 3k bath, calcium 2.5. 2. Anemia. Monitor hemoglobin and hematocrit levels. 3. Mineral bone disorder. Monitor calcium and phosphorus levels. Continue phosphate binders as nee ded. 4. Hypertension. Continue current blood pressure regimen. Continue pain control. Continue ultrafi ltration with dialysis. 5. Diabetes. Continue current insulin regimen. 6. Nausea, vomiting, gastroparesis. Continue to monitor. 7. Right tibia and fibular fracture. Continue pain control and conservative management. 8. Chronic pain syndrome. Continue current pain regimen. Dictated By: JUJU MARTINEZ DO NR/NTS Conf#: [id number] DID#: [id number] CC: NAYAN WILLIS; JERAMIE KEE MD; BLAYNE BLANTON MD;*EndCC*
--- NOTE | 2018-11-07 10:27 | PN ---
Date/Time of Note Date/Time of Note DATE: 11/07/18 TIME: 10:25 Assessment/Plan VTE Prophylaxis Risk score (from Nsg)>0 risk: 8 SCD applied (from Ns): No SCD contraindicated: other Pharmacological prophylaxis: heparin Lines/Catheters IV Catheter Type (from Nrs): permacath Urinary Cath still in place: No Assessment/Plan Hospital Course S: Patient had some elevated blood pressure overnight but more improved this morning. Sugars were elevated overnight. Awaiting dialysis for later today. Seen by renal team this morning as well. O: VS - see below PE: General: lying in bed, answering questions appropriately HEENT: Atraumatic, normocephalic. Moist mucous membranes, clear oropharynx Neck: Supple with full range of motion. No rigidity or meningismus Chest: Right Tremayne cath Lungs: Clear to auscultation bilaterally no crackles rales or wheezing Heart: Normal S1-S2, Regular rhythm and rate. No murmur, S3, or S4 Abdomen: Soft , nontender, nondistended , bowel sounds are present. No guarding no rebound tenderness Extremities: Right lower extremity in brace, skin clean appearing, warm to touch, distal pulses palpable, no cyanosis noted Assessment/Plan: 28 yo woman with type I diabetes, ESRD on MWF dialysis, diabetic gastroparesis and multiple allergies presents after recent admission with high blood sugars, pain and nausea. #Type I diabetes: Patient has longstanding uncontrolled type 1 DM diagnosed at age 6 complicated by retinopathy, neuropathy and ESRD. Latest A1c equals 7.4. Patient with mild DKA, now resolved, appreciate endocrinology recommendations -For now continue sliding scale insulin and Lantus as ordered per endocr inology recommendations -they have indicated they will put patient back on short acting insulin as scheduled as well when patient is back on regular diet -Monitor sugars #Nausea/vomiting: - Chronic diabetic gastroparesis. -For now continue PRN Tigan, Zofran, and Levsin. - Continue PPI and carafate. -For now continue full liquid diet, awaiting GI reevaluation. -For now continue 3 times daily erythromycin (allergy to Reglan) -Per GI team, no plans for EGD until patient is medically cleared, i.e. patient first gets the right heart cath for work-up of possible pulmonary hypertension. Case management is working on setting this up as an outpatient appointment now. # HTN-this morning is controlled - on home meds. - Continue p.o. labetalol, clonidine, spironolactone, losartan, and hydra lazine. -Continue IV as needed anti-hypertensive medicines as well #ESRD-renal team on the case - Continue scheduled HD per nephrology. #Right tib/fib fracture-orthopedics Dr. Babcock consulted on last admission- recommended for long leg brace with a dial lock - now in place. -For now keep limb immobile-per orthopedic surgery reconsult, they are recommending non-weightbearing status for the right lower extremity. Adjustment also made to leg brace that is now back in place - Evaluated by ARU last admission and declined. - Continue PO dilaudid as needed. Avoid reliance on IV opiates as much as necessary. -Follow-up PT eval DVT: heparin GI: PPI twice daily Result Diagram: 11/07/18 0557 11/07/18 0557 Results 24hrs Laboratory Tests Test 11/06/18 11:26 11/06/18 17:36 11/06/18 20:31 11/07/18 05:57 Bedside Glucose 311 H 242 H 271 H White Blood Count 5.9 Red Blood Count 2.82 L Hemoglobin 8.5 L Hematocrit 26.9 L Mean Corpuscular Volume 95.4 Mean Corpuscular 30.1 Hemoglobin Mean Corpuscular 31.6 L Hemoglobin Concent Red Cell Distribution 16.8 H Width Platelet Count 238 Mean Platelet Volume 10.4 Immature Granulocytes % 0.200 Neutrophils % 70.0 Lymphocytes % 8.2 L Monocytes % 11.9 H Eosinophils % 8.5 H Basophils % 1.2 Nucleated Red Blood 0.0 Cells % Immature Granulocytes # 0.010 Neutrophils # 4.1 Lymphocytes # 0.5 L Monocytes # 0.7 Eosinophils # 0.5 Basophils # 0.1 Nucleated Red Blood 0.0 Cells # Sodium Level 138 Potassium Level 4.5 Chloride Level 101 Carbon Dioxide Level 22 Anion Gap 15 H Blood Urea Nitrogen 31 H Creatinine 6.66 H Est Glomerular Filtrat 7 L Rate mL/min Glucose Level 201 # Calcium Level 9.4 Test 11/07/18 07:58 Bedside Glucose 198 Exam/Review of Systems Exam Vitals Vital Signs Date Temp Pulse Resp B/P (MAP) Pulse Ox O2 O2 Flow FiO2 Time Delivery Rate 11/07/18 Nasal 1.0 09:00 Cannula 5/9/19 76 08:00 11/07/18 98.3 20 144/67 98 07:45 (92) Intake and Output 11/06/18 11/06/18 11/07/18 1515:00 23:00 07:00 IntakeIntake Total 200 ml 240 ml BalanceBalance 200 ml 240 ml Results Results 24hrs Laboratory Tests Test 11/06/18 11:26 11/06/18 17:36 11/06/18 20:31 11/07/18 05:57 Bedside Glucose 311 H 242 H 271 H White Blood Count 5.9 Red Blood Count 2.82 L Hemoglobin 8.5 L Hematocrit 26.9 L Mean Corpuscular Volume 95.4 Mean Corpuscular 30.1 Hemoglobin Mean Corpuscular 31.6 L Hemoglobin Concent Red Cell Distribution 16.8 H Width Platelet Count 238 Mean Platelet Volume 10.4 Immature Granulocytes % 0.200 Neutrophils % 70.0 Lymphocytes % 8.2 L Monocytes % 11.9 H Eosinophils % 8.5 H Basophils % 1.2 Nucleated Red Blood 0.0 Cells % Immature Granulocytes # 0.010 Neutrophils # 4.1 Lymphocytes # 0.5 L Monocytes # 0.7 Eosinophils # 0.5 Basophils # 0.1 Nucleated Red Blood 0.0 Cells # Sodium Level 138 Potassium Level 4.5 Chloride Level 101 Carbon Dioxide Level 22 Anion Gap 15 H Blood Urea Nitrogen 31 H Creatinine 6.66 H Est Glomerular Filtrat 7 L Rate mL/min Glucose Level 201 # Calcium Level 9.4 Test 11/07/18 07:58 Bedside Glucose 198 Medications Medication Current Medications IV Flush (NS 3 ml) 3 ml PER PROTOCOL IV ; Start 11/01/18 at 19:30 Heparin Sodium (Porcine) (Heparin (5000 Units/1ml)) 5,000 unit Q12 SC Last administered on 11/07/18at 09:16; Admin Dose 5,000 UNIT; Start 11/01/18 at 21:00 Hydromorphone HCl (Dilaudid) 4 mg Q4H PRN PO SEVERE PAIN LEVEL 7-10 Last administered on 11/07/18 05:38; Admin Dose 4 MG; Start 11/02/18 at 08:30 Calcium Carbonate (Tums) 500 mg Q2H PRN PO GASTROINTESTINAL UPSET Last administered on 11/04/18at 07:56; Admin Dose 500 MG; Start 11/02/18 at 10:00 Clonidine (Catapres) 0.4 mg BID PO Last administered on 11/06/18 20:33; Admin Dose 0.4 MG; Start 11/02/18 at 21:00 Hydralazine HCl (Apresoline) 100 mg TID PO Last administered on 11/06/18 20:34; Admin Dose 100 MG; Start 11/02/18 at 13:00 Hyoscyamine (Levsin (Sl)) 0.125 mg Q8H PRN PO NAUSEA Last administered on 11/04/18 12:10; Admin Dose 0.125 MG; Start 11/02/18 at 09:30 Labetalol HCl (Normodyne) 1,200 mg BID PO Last administered on 11/06/18 20:33; Admin Dose 1,200 MG; Start 11/02/18 at 09:30 Loperamide HCl (Imodium Cap) 2 mg TID PRN PO DIARRHEA; Start 11/02/18 at 09:30 Losartan Potassium (Cozaar) 100 mg DAILY PO Last administered on 11/06/18 08:33; Admin Dose 100 MG; Start 11/02/18 at 10:00 Sucralfate (Carafate) 1 gm QID PO Last administered on 11/07/18 08:54; Admin Dose 1 GM; Start 11/02/18 at 13:00; Stop 11/16/18 at 12:59 Miscellaneous Information 1 ea NOTE XX ; Start 11/02/18 at 10:00 Glucose (Glutose) 15 gm Q15M PRN PO DECREASED GLUCOSE; Start 11/02/18 at 10:00 Glucose (Glutose) 22.5 gm Q15M PRN PO DECREASED GLUCOSE; Start 11/02/18 at 10:00 Dextrose (D50w Syringe) 25 ml Q15M PRN IV DECREASED GLUCOSE Last administered on 11/04/18 18:07; Admin Dose 25 ML; Start 11/02/18 at 10:00 Dextrose (D50w Syringe) 50 ml Q15M PRN IV DECREASED GLUCOSE Last administered on 11/03/18 17:05; Admin Dose 50 ML; Start 11/02/18 at 10:00 Glucagon (Glucagen) 1 mg Q15M PRN IM DECREASED GLUCOSE; Start 11/02/18 at 10:00 Glucose (Glutose) 15 gm Q15M PRN BUCCAL DECREASED GLUCOSE Last administered on 11/04/18 17:39; Admin Dose 15 GM; Start 11/02/18 at 10:00 Hydralazine HCl (Apresoline) 20 mg Q6H PRN IV SBP>185 Last administered on 11/07/18 02:20; Admin Dose 20 MG; Start 11/02/18 at 11:30 Labetalol HCl (Labetalol) 20 mg Q4H PRN IV SBP>185 Last administered on 11/07/18 04:33; Admin Dose 20 MG; Start 11/02/18 at 12:00 Eye Lubricant (Artificial Tears Oph) 2 drop Q6H PRN BOTH EYES DRY EYES Last administered on 11/03/18 04:19; Admin Dose 2 DROP; Start 11/02/18 at 16:00 Insulin Aspart (Novolog Insulin Pen) NOVOLOG *MILD* ALGORITHM WITH MEALS BEDTIME SC Last administered on 11/07/18 08:03; Admin Dose 2 UNIT; Start 11/02/18 at 21:00 Clonidine HCl (Catapres-Tts 3 Patch) 2 patch Q7D TRANSDERM Last administered on 11/02/18 22:54; Admin Dose 2 PATCH; Start 11/02/18 at 20:00 Trimethobenzamide HCl (Tigan) 200 mg Q6H PRN IM NAUSEA AND/OR VOMITING Last administered on 11/04/18 12:09; Admin Dose 200 MG; Start 11/03/18 at 15:00 Pantoprazole (Protonix Iv) 40 mg BID@06,18 IV Last administered on 11/07/18 06:34; Admin Dose 40 MG; Start 11/03/18 at 18:00 Epoetin Vic-epbx (RETACRIT(esrd)) 10,000 unit MoWeFr@1700 SC Last administered on 11/06/18 17:40; Admin Dose 10,000 UNIT; Start 11/04/18 at 17:00 Diphenhydramine HCl (Benadryl) 25 mg Q6H PRN PO ITCHING; Start 11/04/18 at 11:30 Ondansetron HCl (Zofran Inj) 8 mg Q4H PRN IV NAUSEA/VOMITING Last administered on 11/06/18 22:36; Admin Dose 8 MG; Start 11/04/18 at 12:30 Lorazepam (Ativan) 1 mg Q8H PRN IV AGITATION/ANXIETY Last administered on 11/07/18 06:34; Admin Dose 1 MG; Start 11/04/18 at 14:30 Erythromycin (Erythromycin) 250 mg TID PO Last administered on 11/07/18 08:55; Admin Dose 250 MG; Start 11/04/18 at 15:00 Doxazosin Mesylate (Cardura) 1 mg HS PO Last administered on 11/06/18 20:34; Admin Dose 1 MG; Start 11/04/18 at 21:00 Acetaminophen/ Hydrocodone Bitart ([place] (5/325)) 1 tab Q4H PRN PO MODERATE PAIN LEVEL 4-6; Start 11/04/18 at 18:30 Heparin Sodium (Porcine) (Heparin (1000 Units/ml)) 3,700 unit AFTER DIALYSIS CATHETER Last administered on 11/05/18 12:08; Admin Dose 3,700 UNIT; Start 11/05/18 at 11:00 Spironolactone (Aldactone) 50 mg BID PO Last administered on 11/07/18 08:55; Admin Dose 50 MG; Start 11/06/18 at 09:00 Hydromorphone HCl (Dilaudid) 1 mg Q6H PRN IV SEVERE PAIN LEVEL 7-10 Last ad ministered on 11/07/18 08:49; Admin Dose 1 MG; Start 11/06/18 at 10:30 Insulin Glargine (Lantus) 6 units Q12 SC Last administered on 11/07/18 09:13; Admin Dose 6 UNITS; Start 11/07/18 at 09:00 NAYAN WILLIS November 07, 2018 10:27
[2018-11-07] MEDS ORDERED: DIPHENHYDRAMINE 50 MG INJ IV ONE ×4 (10:30→19:30)
--- NOTE | 2018-11-07 10:54 | PN ---
Date/Time of Note Date/Time of Note DATE: 11/07/18 TIME: 10:51 Assessment/Plan VTE Prophylaxis Risk score (from Ns)>0 risk: 8 SCD applied (from Ns): No SCD contraindicated: low risk/ambulating Pharmacological prophylaxis: NA/contraindicated Pharm contraindication: renal impairment Lines/Catheters IV Catheter Type (from [facility]): permacath Urinary Cath still in place: No Assessment/Plan Hospital Course Summary Assessment and Plan: Assessment: History of gastroparesis Type I diabetes- with hyperglycemia History of PUD IBS - D HTN Normocytic anemia ESRD- on HD Right tib/fib fracture Partially blind Diarrhea Plan: Continue antiemetic therapy Continue erythromycin-Reglan will not be started as patient does have an allergy Continue PPI/Carafate x 4weeks- given recent findings of Soft- renal/diabetic Monitor need for EGD if deemed necessary patient will require medical clearance given severe pulmonary hypertension Pt with diarrhea- will obtain stool studies- if negative will start Imodium Patient seen in collaboration with Dr. Paul Subjective: Pt erika diet fair, she stats she now has diarrhea- this apparently has been happe marium for the last month or two. She states she takes Imodium at home. Will check stool studies if neg, will start Imodium. Pt may require colonoscopy, once medically cleared as an out-pt Exam PHYSICAL EXAMINATION: GENERAL: Partially blind chronically ill-appearing alert & oriented x 3, in no acute distress SKIN: Multiple bruises, dialysis access EARS/NOSE AND THROAT: Ears normal, nose normal, oropharynx normal. NECK: Supple, no masses. CHEST: Inspection within normal limits. CARDIOVASCULAR: Heart: Regular rate and rhythm RESPIRATORY: Lungs clear to auscultation. GASTROINTESTINAL AND LIVER: Abdomen: Soft, mild tenderness, non-distended, no hernias, no masses, normoactive bowel sounds. Rectal: Deferred. Result Diagram: 11/07/18 0557 11/07/18 0557 Results 24hrs Laboratory Tests Test 11/06/18 11:26 11/06/18 17:36 11/06/18 20:31 11/07/18 05:57 Bedside Glucose 311 H 242 H 271 H White Blood Count 5.9 Red Blood Count 2.82 L Hemoglobin 8.5 L Hematocrit 26.9 L Mean Corpuscular Volume 95.4 Mean Corpuscular 30.1 Hemoglobin Mean Corpuscular 31.6 L Hemoglobin Concent Red Cell Distribution 16.8 H Width Platelet Count 238 Mean Platelet Volume 10.4 Immature Granulocytes % 0.200 Neutrophils % 70.0 Lymphocytes % 8.2 L Monocytes % 11.9 H Eosinophils % 8.5 H Basophils % 1.2 Nucleated Red Blood 0.0 Cells % Immature Granulocytes # 0.010 Neutrophils # 4.1 Lymphocytes # 0.5 L Monocytes # 0.7 Eosinophils # 0.5 Basophils # 0.1 Nucleated Red Blood 0.0 Cells # Sodium Level 138 Potassium Level 4.5 Chloride Level 101 Carbon Dioxide Level 22 Anion Gap 15 H Blood Urea Nitrogen 31 H Creatinine 6.66 H Est Glomerular Filtrat 7 L Rate mL/min Glucose Level 201 # Calcium Level 9.4 Test 11/07/18 07:58 Bedside Glucose 198 Exam/Review of Systems Exam Vitals Vital Signs Date Temp Pulse Resp B/P (MAP) Pulse Ox O2 O2 Flow FiO2 Time Delivery Rate 11/07/18 Nasal 1.0 09:00 Cannula 11/07/18 76 08:00 11/07/18 98.3 20 144/67 98 07:45 (92) Intake and Output 11/06/18 11/06/18 11/07/18 1515:00 23:00 07:00 IntakeIntake Total 200 ml 240 ml BalanceBalance 200 ml 240 ml Results Results 24hrs Laboratory Tests Test 11/06/18 11:26 11/06/18 17:36 11/06/18 20:31 11/07/18 05:57 Bedside Glucose 311 H 242 H 271 H White Blood Count 5.9 Red Blood Count 2.82 L Hemoglobin 8.5 L Hematocrit 26.9 L Mean Corpuscular Volume 95.4 Mean Corpuscular 30.1 Hemoglobin Mean Corpuscular 31.6 L Hemoglobin Concent Red Cell Distribution 16.8 H Width Platelet Count 238 Mean Platelet Volume 10.4 Immature Granulocytes % 0.200 Neutrophils % 70.0 Lymphocytes % 8.2 L Monocytes % 11.9 H Eosinophils % 8.5 H Basophils % 1.2 Nucleated Red Blood 0.0 Cells % Immature Granulocytes # 0.010 Neutrophils # 4.1 Lymphocytes # 0.5 L Monocytes # 0.7 Eosinophils # 0.5 Basophils # 0.1 Nucleated Red Blood 0.0 Cells # Sodium Level 138 Potassium Level 4.5 Chloride Level 101 Carbon Dioxide Level 22 Anion Gap 15 H Blood Urea Nitrogen 31 H Creatinine 6.66 H Est Glomerular Filtrat 7 L Rate mL/min Glucose Level 201 # Calcium Level 9.4 Test 11/07/18 07:58 Bedside Glucose 198 Medications Medication Current Medications IV Flush (NS 3 ml) 3 ml PER PROTOCOL IV ; Start 11/01/18 at 19:30 Heparin Sodium (Porcine) (Heparin (5000 Units/1ml)) 5,000 unit Q12 SC Last administered on 11/07/18 09:16; Admin Dose 5,000 UNIT; Start 11/01/18 at 21:00 Hydromorphone HCl (Dilaudid) 4 mg Q4H PRN PO SEVERE PAIN LEVEL 7-10 Last administered on 11/07/18 05:38; Admin Dose 4 MG; Start 11/02/18 at 08:30 Calcium Carbonate (Tums) 500 mg Q2H PRN PO GASTROINTESTINAL UPSET Last administered on 11/04/18 07:56; Admin Dose 500 MG; Start 11/02/18 at 10:00 Clonidine (Catapres) 0.4 mg BID PO Last administered on 11/06/18 20:33; Admin Dose 0.4 MG; Start 11/02/18 at 21:00 Hydralazine HCl (Apresoline) 100 mg TID PO Last administered on 11/06/18 20:34; Admin Dose 100 MG; Start 11/02/18 at 13:00 Hyoscyamine (Levsin (Sl)) 0.125 mg Q8H PRN PO NAUSEA Last administered on 11/04/18 12:10; Admin Dose 0.125 MG; Start 11/02/18 at 09:30 Labetalol HCl (Normodyne) 1,200 mg BID PO Last administered on 11/06/18 20:33; Admin Dose 1,200 MG; Start 11/02/18 at 09:30 Loperamide HCl (Imodium Cap) 2 mg TID PRN PO DIARRHEA; Start 11/02/18 at 09:30 Losartan Potassium (Cozaar) 100 mg DAILY PO Last administered on 11/06/18 08:33; Admin Dose 100 MG; Start 11/02/18 at 10:00 Sucralfate (Carafate) 1 gm QID PO Last administered on 11/07/18 08:54; Admin Dose 1 GM; Start 11/02/18 at 13:00; Stop 11/16/18 at 12:59 Miscellaneous Information 1 ea NOTE XX ; Start 11/02/18 at 10:00 Glucose (Glutose) 15 gm Q15M PRN PO DECREASED GLUCOSE; Start 11/02/18 at 10:00 Glucose (Glutose) 22.5 gm Q15M PRN PO DECREASED GLUCOSE; Start 11/02/18 at 10:00 Dextrose (D50w Syringe) 25 ml Q15M PRN IV DECREASED GLUCOSE Last administered on 11/04/18 18:07; Admin Dose 25 ML; Start 11/02/18 at 10:00 Dextrose (D50w Syringe) 50 ml Q15M PRN IV DECREASED GLUCOSE Last administered on 11/03/18 17:05; Admin Dose 50 ML; Start 11/02/18 at 10:00 Glucagon (Glucagen) 1 mg Q15M PRN IM DECREASED GLUCOSE; Start 11/02/18 at 10:00 Glucose (Glutose) 15 gm Q15M PRN BUCCAL DECREASED GLUCOSE Last administered on 11/04/18 17:39; Admin Dose 15 GM; Start 11/02/18 at 10:00 Hydralazine HCl (Apresoline) 20 mg Q6H PRN IV SBP>185 Last administered on 11/07/18 02:20; Admin Dose 20 MG; Start 11/02/18 at 11:30 Labetalol HCl (Labetalol) 20 mg Q4H PRN IV SBP>185 Last administered on 11/07/18 04:33; Admin Dose 20 MG; Start 11/02/18 at 12:00 Eye Lubricant (Artificial Tears Oph) 2 drop Q6H PRN BOTH EYES DRY EYES Last administered on 11/03/18 04:19; Admin Dose 2 DROP; Start 11/02/18 at 16:00 Insulin Aspart (Novolog Insulin Pen) NOVOLOG *MILD* ALGORITHM WITH MEALS BEDTIME SC Last administered on 11/07/18 08:03; Admin Dose 2 UNIT; Start 11/02/18 at 21:00 Clonidine HCl (Catapres-Tts 3 Patch) 2 patch Q7D TRANSDERM Last administered on 11/02/18 22:54; Admin Dose 2 PATCH; Start 11/02/18 at 20:00 Trimethobenzamide HCl (Tigan) 200 mg Q6H PRN IM NAUSEA AND/OR VOMITING Last administered on 11/04/18 12:09; Admin Dose 200 MG; Start 11/03/18 at 15:00 Pantoprazole (Protonix Iv) 40 mg BID@06,18 IV Last administered on 11/07/18 06:34; Admin Dose 40 MG; Start 11/03/18 at 18:00 Epoetin Vic-epbx (RETACRIT(esrd)) 10,000 unit MoWeFr@1700 SC Last administered on 11/06/18 17:40; Admin Dose 10,000 UNIT; Start 11/04/18 at 17:00 Diphenhydramine HCl (Benadryl) 25 mg Q6H PRN PO ITCHING; Start 11/04/18 at 11:30 Ondansetron HCl (Zofran Inj) 8 mg Q4H PRN IV NAUSEA/VOMITING Last administered on 11/06/18 22:36; Admin Dose 8 MG; Start 11/04/18 at 12:30 Lorazepam (Ativan) 1 mg Q8H PRN IV AGITATION/ANXIETY Last administered on 11/07/18 06:34; Admin Dose 1 MG; Start 11/04/18 at 14:30 Erythromycin (Erythromycin) 250 mg TID PO Last administered on 11/07/18 08:55; Admin Dose 250 MG; Start 11/04/18 at 15:00 Doxazosin Mesylate (Cardura) 1 mg HS PO Last administered on 11/06/18 20:34; Admin Dose 1 MG; Start 11/04/18 at 21:00 Acetaminophen/ Hydrocodone Bitart ([place] (5/325)) 1 tab Q4H PRN PO MODERATE PAIN LEVEL 4-6; Start 11/04/18 at 18:30 Heparin Sodium (Porcine) (Heparin (1000 Units/ml)) 3,700 unit AFTER DIALYSIS CATHETER Last administered on 11/05/18 12:08; Admin Dose 3,700 UNIT; Start 11/05/18 at 11:00 Spironolactone (Aldactone) 50 mg BID PO Last administered on 11/07/18 08:55; Admin Dose 50 MG; Start 11/06/18 at 09:00 Hydromorphone HCl (Dilaudid) 1 mg Q6H PRN IV SEVERE PAIN LEVEL 7-10 Last administered on 11/07/18at 08:49; Admin Dose 1 MG; Start 11/06/18 at 10:30 Insulin Glargine (Lantus) 6 units Q12 SC Last administered on 11/07/18at 09:13; Admin Dose 6 UNITS; Start 11/07/18 at 09:00 KAYLA BARILLAS November 07, 2018 10:54
--- NOTE | 2018-11-07 17:51 | CONS ---
Assessment/Plan Assessment/Plan Problems: (1) Diabetes mellitus type 1 with complications Onset Date: ~ 10/1996 Status: Chronic Comment: Improved glycemic control w/ new split dose lantus. Will restart mealtime Novolog of just 2 units qac plus low-strength custom correction scale o f 1:70 mg/dL over 180 mg/dL. If pt. wants snack, supplemental Novolog can be ordered at those times. Consultation Date/Type/Reason Admit Date/Time November 01, 2018 at 18:00 Initial Consult Date 11/05/18 Type of Consult Endocrinology Reason for Consultation [id number] Requesting Provider: NAYAN WILLIS Date/Time of Note DATE: 11/07/18 TIME: 17:48 24 HR Interval Summary Constitutional: no complaints Detailed Summary Respiratory: no complaints Cardiovascular: no complaints Gastrointestinal: no complaints Genitourinary: no complaints Musculoskeletal: no complaints Neurologic: no complaints Exam/Review of Systems Exam Vitals VS - Last 72 Hours, by Label Date Temp Pulse Resp B/P (MAP) Pulse Ox O2 O2 Flow FiO2 Time Delivery Rate 11/07/18 76 17:45 11/07/18 75 17:30 11/07/18 75 17:15 11/07/18 77 17:00 11/07/18 76 16:45 11/07/18 75 18 200/112 100 Nasal 2.0 16:30 (141) Cannula 11/07/18 75 16:30 11/07/18 74 16:00 11/07/18 2.0 15:59 11/07/18 98.3 74 20 199/115 100 15:54 (143) 11/07/18 78 12:00 11/07/18 98.4 78 20 216/108 100 11:40 (144) 11/07/18 Nasal 1.0 09:00 Cannula 11/07/18 76 08:00 11/07/18 98.3 75 20 144/67 98 07:45 (92) 11/07/18 75 148/72 06:36 (97) 11/07/18 76 04:00 11/07/18 98.4 76 18 193/95 98 03:48 (127) 11/07/18 76 181/87 02:42 (118) 11/07/18 98.4 76 18 200/104 100 00:00 (136) 11/07/18 77 00:00 11/06/18 Nasal 1.0 21:00 Cannula 11/06/18 75 20:00 11/06/18 98.0 77 17 198/97 100 20:00 (130) 11/06/18 74 16:04 11/06/18 98.9 74 17 164/74 97 15:09 (104) 11/06/18 77 12:08 11/06/18 98.2 77 18 208/95 100 11:46 (132) 11/06/18 81 08:04 11/06/18 Nasal 1.0 07:40 Cannula 11/06/18 99.2 81 17 123/60 99 07:20 (81) 11/06/18 153/72 04:01 (99) 11/06/18 78 04:00 11/06/18 98.0 77 18 188/86 98 03:35 (120) 11/06/18 77 185/83 03:28 (117) 11/06/18 192/94 02:32 (126) 11/06/18 195/95 01:08 (128) 11/06/18 80 208/103 00:12 (138) 11/06/18 82 00:00 11/05/18 98.8 83 19 243/122 98 23:28 (162) 11/05/18 Nasal 1.0 20:30 Cannula 11/05/18 98.6 80 19 144/57 100 20:12 (86) 11/05/18 80 20:00 11/05/18 81 16:01 11/05/18 98.5 80 19 172/76 99 15:36 (108) 11/05/18 78 12:01 11/05/18 98.0 77 19 190/67 100 11:42 (108) 11/05/18 80 11:10 11/05/18 80 10:55 11/05/18 79 10:40 11/05/18 79 10:25 11/05/18 79 10:10 11/05/18 81 09:55 11/05/18 80 09:40 11/05/18 78 09:25 11/05/18 80 09:10 11/05/18 77 08:55 11/05/18 78 08:40 11/05/18 77 08:25 11/05/18 77 08:08 11/05/18 76 08:01 11/05/18 78 20 181/110 98 Nasal 2.0 08:00 (133) Cannula 11/05/18 97.8 77 17 141/63 100 07:43 (89) 11/05/18 Nasal 1.0 07:40 Cannula 11/05/18 98.6 75 18 145/75 97 04:12 (98) 11/05/18 78 04:00 11/05/18 81 00:00 11/04/18 98.0 76 18 127/60 95 23:29 (82) 11/04/18 Nasal 1.0 20:15 Cannula 11/04/18 73 20:00 11/04/18 97.4 74 19 135/62 99 19:45 (86) Vital Signs Date Temp Pulse Resp B/P (MAP) Pulse Ox O2 O2 Flow FiO2 Time Delivery Rate 11/07/18 76 17:45 11/07/18 18 200/112 100 Nasal 2.0 16:30 (141) Cannula 11/07/18 98.3 15:54 Intake and Output 11/06/18 11/06/18 11/07/18 1515:00 23:00 07:00 IntakeIntake Total 200 ml 240 ml BalanceBalance 200 ml 240 ml Constitutional: alert, oriented, frail Psych: depression Respiratory: clear to auscultation, normal air movement Cardiovascular: regular rate and rhythm; No edema, No murmurs/extra sounds, No rub Gastrointestinal: soft, nl liver, spleen, non-tender, bowel sounds; No mass, No rebound or guarding Musculoskeletal: joint tenderness (RLE TTP near ankle); No nl extremities to inspection Extremities: No cyanosis, No clubbing, No edema Neurological: [employer] II-XII intact, nl mental status, nl speech, nl strength Additional Comments Bedside Glucose - 72 Hours Test 11/04/18 17:58 11/04/18 18:19 11/04/18 18:45 11/04/18 21:01 Bedside 49 164 148 119 Glucose mg/dL (70-220) mg/dL (70-220) mg/dL (70-220) mg/dL (70-220) *L Test 11/05/18 03:50 11/05/18 07:29 11/05/18 11:28 11/05/18 17:27 Bedside 235 223 97 121 Glucose mg/dL (70-220) mg/dL (70-220) mg/dL (70-220) mg/dL (70-220) H H Test 11/05/18 20:46 11/06/18 07:42 11/06/18 11:26 11/06/18 17:36 Bedside 135 424 311 242 Glucose mg/dL (70-220) mg/dL (70-220) mg/dL (70-220) mg/dL (70-220) *H H H Test 11/06/18 20:31 11/07/18 07:58 11/07/18 12:19 11/07/18 17:13 Bedside 271 198 234 119 Glucose mg/dL (70-220) mg/dL (70-220) mg/dL (70-220) mg/dL (70-220) H H Results Result Diagram: 11/07/18 0557 11/07/18 0557 Results 24hrs Laboratory Tests Test 11/06/18 20:31 11/07/18 05:57 11/07/18 07:58 11/07/18 12:19 Bedside Glucose 271 H 198 234 H White Blood Count 5.9 Red Blood Count 2.82 L Hemoglobin 8.5 L Hematocrit 26.9 L Mean Corpuscular Volume 95.4 Mean Corpuscular 30.1 Hemoglobin Mean Corpuscular 31.6 L Hemoglobin Concent Red Cell Distribution 16.8 H Width Platelet Count 238 Mean Platelet Volume 10.4 Immature Granulocytes % 0.200 Neutrophils % 70.0 Lymphocytes % 8.2 L Monocytes % 11.9 H Eosinophils % 8.5 H Basophils % 1.2 Nucleated Red Blood 0.0 Cells % Immature Granulocytes # 0.010 Neutrophils # 4.1 Lymphocytes # 0.5 L Monocytes # 0.7 Eosinophils # 0.5 Basophils # 0.1 Nucleated Red Blood 0.0 Cells # Sodium Level 138 Potassium Level 4.5 Chloride Level 101 Carbon Dioxide Level 22 Anion Gap 15 H Blood Urea Nitrogen 31 H Creatinine 6.66 H Est Glomerular Filtrat 7 L Rate mL/min Glucose Level 201 # Calcium Level 9.4 Test 11/07/18 17:13 Bedside Glucose 119 Medications Medication Current Medications IV Flush (NS 3 ml) 3 ml PER PROTOCOL IV ; Start 11/01/18 at 19:30 Heparin Sodium (Porcine) (Heparin (5000 Units/1ml)) 5,000 unit Q12 SC Last administered on 11/07/18 09:16; Admin Dose 5,000 UNIT; Start 11/01/18 at 21:00 Hydromorphone HCl (Dilaudid) 4 mg Q4H PRN PO SEVERE PAIN LEVEL 7-10 Last administered on 11/07/18 05:38; Admin Dose 4 MG; Start 11/02/18 at 08:30 Calcium Carbonate (Tums) 500 mg Q2H PRN PO GASTROINTESTINAL UPSET Last administered on 11/04/18 07:56; Admin Dose 500 MG; Start 11/02/18 at 10:00 Clonidine (Catapres) 0.4 mg BID PO Last administered on 11/07/18 11:56; Admin Dose 0.4 MG; Start 11/02/18 at 21:00 Hydralazine HCl (Apresoline) 100 mg TID PO Last administered on 11/07/18 11:57; Admin Dose 100 MG; Start 11/02/18 at 13:00 Hyoscyamine (Levsin (Sl)) 0.125 mg Q8H PRN PO NAUSEA Last administered on 11/04/18 12:10; Admin Dose 0.125 MG; Start 11/02/18 at 09:30 Labetalol HCl (Normodyne) 1,200 mg BID PO Last administered on 11/07/18 11:54; Admin Dose 1,200 MG; Start 11/02/18 at 09:30 Loperamide HCl (Imodium Cap) 2 mg TID PRN PO DIARRHEA; Start 11/02/18 at 09:30 Losartan Potassium (Cozaar) 100 mg DAILY PO Last administered on 11/06/18 08:33; Admin Dose 100 MG; Start 11/02/18 at 10:00 Sucralfate (Carafate) 1 gm QID PO Last administered on 11/07/18 17:23; Admin Dose 1 GM; Start 11/02/18 at 13:00; Stop 11/16/18 at 12:59 Miscellaneous Information 1 ea NOTE XX ; Start 11/02/18 at 10:00 Glucose (Glutose) 15 gm Q15M PRN PO DECREASED GLUCOSE; Start 11/02/18 at 10:00 Glucose (Glutose) 22.5 gm Q15M PRN PO DECREASED GLUCOSE; Start 11/02/18 at 10:00 Dextrose (D50w Syringe) 25 ml Q15M PRN IV DECREASED GLUCOSE Last administered on 11/04/18 18:07; Admin Dose 25 ML; Start 11/02/18 at 10:00 Dextrose (D50w Syringe) 50 ml Q15M PRN IV DECREASED GLUCOSE Last administered on 11/03/18 17:05; Admin Dose 50 ML; Start 11/02/18 at 10:00 Glucagon (Glucagen) 1 mg Q15M PRN IM DECREASED GLUCOSE; Start 11/02/18 at 10:00 Glucose (Glutose) 15 gm Q15M PRN BUCCAL DECREASED GLUCOSE Last administered on 11/04/18 17:39; Admin Dose 15 GM; Start 11/02/18 at 10:00 Hydralazine HCl (Apresoline) 20 mg Q6H PRN IV SBP>185 Last administered on 11/07/18 17:21; Admin Dose 20 MG; Start 11/02/18 at 11:30 Labetalol HCl (Labetalol) 20 mg Q4H PRN IV SBP>185 Last administered on 11/07/18 04:33; Admin Dose 20 MG; Start 11/02/18 at 12:00 Eye Lubricant (Artificial Tears Oph) 2 drop Q6H PRN BOTH EYES DRY EYES Last administered on 11/03/18 04:19; Admin Dose 2 DROP; Start 11/02/18 at 16:00 Insulin Aspart (Novolog Insulin Pen) NOVOLOG *MILD* ALGORITHM WITH MEALS BEDTIME SC Last administered on 11/07/18 12:23; Admin Dose 3 UNIT; Start 11/02/18 at 21:00 Clonidine HCl (Catapres-Tts 3 Patch) 2 patch Q7D TRANSDERM Last administered on 11/02/18 22:54; Admin Dose 2 PATCH; Start 11/02/18 at 20:00 Trimethobenzamide HCl (Tigan) 200 mg Q6H PRN IM NAUSEA AND/OR VOMITING Last administered on 11/04/18 12:09; Admin Dose 200 MG; Start 11/03/18 at 15:00 Pantoprazole (Protonix Iv) 40 mg BID@06,18 IV Last administered on 11/07/18 17:22; Admin Dose 40 MG; Start 11/03/18 at 18:00 Epoetin Vic-epbx (RETACRIT(esrd)) 10,000 unit MoWeFr@1700 SC Last administered on 11/06/18 17:40; Admin Dose 10,000 UNIT; Start 11/04/18 at 17:00 Diphenhydramine HCl (Benadryl) 25 mg Q6H PRN PO ITCHING; Start 11/04/18 at 11:30 Ondansetron HCl (Zofran Inj) 8 mg Q4H PRN IV NAUSEA/VOMITING Last administered on 11/06/18 22:36; Admin Dose 8 MG; Start 11/04/18 at 12:30 Lorazepam (Ativan) 1 mg Q8H PRN IV AGITATION/ANXIETY Last administered on 11/07/18 06:34; Admin Dose 1 MG; Start 11/04/18 at 14:30 Erythromycin (Erythromycin) 250 mg TID PO Last administered on 11/07/18 13:19; Admin Dose 250 MG; Start 11/04/18 at 15:00 Doxazosin Mesylate (Cardura) 1 mg HS PO Last administered on 11/06/18 20:34; Admin Dose 1 MG; Start 11/04/18 at 21:00 Acetaminophen/ Hydrocodone Bitart ([place] (5/325)) 1 tab Q4H PRN PO MODERATE PAIN LEVEL 4-6; Start 11/04/18 at 18:30 Heparin Sodium (Porcine) (Heparin (1000 Units/ml)) 3,700 unit AFTER DIALYSIS CATHETER Last administered on 11/05/18 12:08; Admin Dose 3,700 UNIT; Start 11/05/18 at 11:00 Spironolactone (Aldactone) 50 mg BID PO Last administered on 11/07/18 08:55; Admin Dose 50 MG; Start 11/06/18 at 09:00 Hydromorphone HCl (Dilaudid) 1 mg Q6H PRN IV SEVERE PAIN LEVEL 7-10 Last administered on 11/07/18 14:49; Admin Dose 1 MG; Start 11/06/18 at 10:30 Insulin Glargine (Lantus) 6 units Q12 SC Last administered on 11/07/18 09:13; Admin Dose 6 UNITS; Start 11/07/18 at 09:00 Diphenhydramine HCl (Benadryl) 25 mg ONCE ONCE IV ; Start 11/07/18 at 18:00; Stop 11/07/18 at 18:01 Insulin Aspart (Novolog Insulin Pen) 2 unit WITH MEALS SC ; Start 11/07/18 at 18:00 AYLEEN HOWARD MD November 07, 2018 17:51
[2018-11-07] MEDS: HEPARIN 1000 UNITS/ML 10 ML INJ CATHETER SCH (19:42)
[2018-11-07] MEDS: DIPHENHYDRAMINE 50 MG INJ IV ONE (21:00)
[2018-11-07] MEDS: DOXAZOSIN 1 MG TAB PO SCH (21:49)
[2018-11-08] VITALS (11 sets, daily range): BP systolic 92–230; BP diastolic 63–120; PULSE 61–78; RESP 2–20
[2018-11-08] MEDS: DIPHENHYDRAMINE 50 MG INJ IV ONE (00:55)
[2018-11-08] MEDS ORDERED: HYDROmorphONE 1 MG/ML SYG IV ONE (02:30)
[2018-11-08] MEDS: HYDROmorphONE 1 MG/ML SYG IV PRN ×4 (03:32→19:18)
[2018-11-08] MEDS: INSULIN ASPART [NOVOLOG] 3 ML PEN SC SCH ×7 (06:42→21:00)
[2018-11-08] MEDS: PANTOPRAZOLE 40 MG INJ IV SCH ×2 (06:42→17:07)
--- NOTE | 2018-11-08 08:32 | PN ---
DATE: 11/08/2018 SUBJECTIVE: The patient had hemodialysis yesterday, tolerated well. No other events noted. OBJECTIVE: VITAL SIGNS: Blood pressure is 134/85, pulse 77, respiration 17, temperature 98.0. HEENT: Head is normocephalic. NECK: Supple. HEART: Regular rate. LUNGS: Show diminished breath sounds at the base. ABDOMEN: Soft, nontender to palpation without rebound or guarding. EXTREMITIES: Negative for clubbing, cyanosis, no edema. DERMATOLOGIC: No rashes. MUSCULOSKELETAL: No joint effusion. NEUROLOGIC: No change in exam. MEDICATIONS: Reviewed. LABORATORY DATA: Reviewed. IMAGING STUDIES: Reviewed. ASSESSMENT AND PLAN: 1. End-stage renal disease. The patient had hemodialysis yesterday, tolerated well. Plan is for di alysis again tomorrow. 2. Anemia. Continue to monitor hemoglobin and hematocrit levels. Continue Epogen as needed. 3. Mineral bone disorder, monitor calcium and phosphorus levels. Continue phosphate binders. 4. Hypertension. Etiology is multifactorial secondary to end-stage renal disease and endothelial dy sfunction, and increased intravascular volume. Continue current medical management. Continue ultraf iltration with dialysis. Continue current blood pressure regimen. Continue pain control. 5. Diabetes. Continue current insulin regimen. 6. Nausea and vomiting, improved. 7. Right tibial fibular fracture. Continue pain control. Conservative management. 8. Chronic pain syndrome, anxiety disorder. Continue current medical management. Continue current pain regimen. Dictated By: JUJU MARTINEZ DO NR/NTS Conf#: [id number] DID#: [id number] CC: BLAYNE BLANTON MD; JERAMIE KEE MD; NAYAN WILLIS;*EndCC*
[2018-11-08] MEDS: SEVELAMER CARBONATE 800 MG TABLET PO SCH ×3 (08:36→17:07)
[2018-11-08] MEDS: LOSARTAN 50 MG TAB PO SCH (08:36)
[2018-11-08] MEDS: LABETALOL 200 MG TAB PO SCH ×2 (08:37→20:19)
[2018-11-08] MEDS: SPIRONOLACTONE 50 MG TAB PO SCH ×2 (08:37→20:18)
[2018-11-08] MEDS: SUCRALFATE 1 GM TAB PO SCH ×4 (08:37→21:19)
[2018-11-08] MEDS: ERYTHROMYCIN BASE (DR) 250 MG CAP PO SCH ×3 (08:38→17:01)
[2018-11-08] MEDS: INSULIN GLARGINE [LANTus] (100 UNITS/ML) SYG SC SCH ×2 (08:46→21:00)
[2018-11-08] MEDS: HEPARIN 5,000 UNIT/1 ML VIAL SC SCH ×2 (08:46→20:28)
[2018-11-08] MEDS: LORAZEPAM 2 MG INJ IV PRN (08:55)
[2018-11-08] MEDS: HYDROmorphONE 2 MG TAB PO PRN (10:12)
--- NOTE | 2018-11-08 10:41 | PDOCDIS ---
Discharge Instructions CONDITION [id number] Patient Condition: [id number] Stable HOME CARE INSTRUCTIONS: [id number] Diet Instructions: [id number] Special Diet: [id number] renal ACTIVITY: [id number] Activity Restrictions: [id number] Slowly Increase Activity Rest between Activity Avoid heavy lifting FOLLOW UP/APPOINTMENTS Follow-up Plan Please take your medications as prescribed and see your doctor in the clinic in the next 1 to 2 weeks. NAYAN WILLIS November 08, 2018 10:41
[2018-11-08] MEDS ORDERED: HYDR-3980 PO (10:44)
[2018-11-08] MEDS ORDERED: NOVO3I SC (10:44)
[2018-11-08] MEDS ORDERED: POLY15DR11 BOTH EYES (10:44)
[2018-11-08] MEDS ORDERED: ERYT250C52 PO (10:44)
[2018-11-08] MEDS ORDERED: BACL10TA PO (10:44)
[2018-11-08] MEDS ORDERED: Insulin Glargine SC (10:44)
--- NOTE | 2018-11-08 10:58 | DS ---
Date/Time of Note Date/Time of Note DATE: 11/08/18 TIME: 10:51 Discharge Summary Admission/Discharge Info Admit Date/Time November 01, 2018 at 18:00 Discharge Date/Time Discharge Diagnosis #Type I diabetes: Patient has longstanding uncontrolled type 1 DM diagnosed at age 6 complicated by retinopathy, neuropathy and ESRD. Latest A1c equals 7.4. Patient with mild DKA, now resolved, appreciate endocrinology recommendations #Nausea/vomiting: - Chronic diabetic gastroparesis -improved with modified diet and erythromycin -Per GI team, no plans for EGD until patient is medically cleared, i.e. jesica ent first gets the right heart cath for work-up of possible pulmonary hypertension. Case management is working on setting this up as an outpatient appointment now. # HTN-this morning is controlled #ESRD #Right tib/fib fracture-orthopedics Dr. Babcock consulted on last admission- recommended for long leg brace with a dial lock - now in place. -For now keep limb immobile-per orthopedic surgery reconsult, they are recommending non-weightbearing status for the right lower extremity. Adjustment also made to leg brace that is now back in place Patient Condition: Stable Procedures X-ray right lower extremity: November 05, 2018 IMPRESSION: 1. The previously noted comminuted proximal tibial diaphyseal fracture is again seen. The fracture fragments are slightly more displaced. 2. The previously noted comminuted proximal fibular diaphyseal fracture is again seen. The distal fragments are displaced medially by 3 mm. Hx of Present Illness 28 yo female with h/o ESRD, DMII, blindness and recent hospitalization for tib/fib fracture who presents with nausea and hyperglycemia and leg pain Patient was just discharged a few days ago from this hospital where she was treated for DKA and leg fracture. Returned home. Has felt unwell since . Had a subjective fever yesterday. Continues to have nausea and occasional dry heaves. Continued pain in her leg. Went to HD today where they sent her to ER for evaluation without dialysis first. Major complaint seems to be of nausea. Has been given zofran without good effect. Also with leg pain. In ED found to have hyperglycemia with acidosis so started on insulin drip and given IV fluids for presumed DKA Hospital Course Patient was admitted and recovered quickly from her mild DKA. She was also seen by GI, renal, endocrinology, physical therapy, and orthopedic surgery teams during this hospital stay. Her sugars were overall improved but there were fluctuations between high and low levels and this led to adjustments by the endocrinology team regarding her Lantus dosages as well as her short acting insulins NovoLog. She continued dialysis as regularly scheduled. She tolerated that well. Her blood pressure initially was high, but she was compliant for the most part with her p.o. blood pressure medicines and her blood pressure improved after getting her medicines here along with dialysis. She continue with physical therapy as tolerated. Regarding her recent right lower extremity fracture, orthopedic surgery team reevaluated her and indicated that the brace was too loose and they readjusted that including tightening it and instructed not to take the brace off until she was instructed to which will be in about 4 weeks, repeating x-rays of the right tibia and fibula. Per orthopedic surgery team she is not to put any weight on the right lower extremity until further notice. Again patient's vital signs were stable, sugars were stable on the day of discharge, she already has wheelchair with leg extension at home along with commode. She will be discharged home today in improved condition. Case management has worked with the insurance company and they will try to set up patient's outpatient appointment in the next 2 to 3 weeks for the need for right heart catheterization to rule out causes of her pulmonary hypertension. Otherwise see below for full list of discharge medications. Home Meds Active Scripts Hydrocodone/Acetaminophen ([place] 10-325 Tablet) 1 Each Tablet, 1 EACH PO Q6 for 14 Days, TAB Prov:ALBA,NAYAN S. 11/08/18 [Insulin Glargine] 100 UNITS/ML SOLN No Conflict Check, 6 UNITS SC Q12, #1 BOTTLE 3 Refills Prov:GOPAL WILLISEEP S. 11/08/18 Insulin Aspart* (Novolog Insulin Pen*) 100 Unit/Ml Soln, 2 UNIT SC WITH MEALS, #1 BOTTLE 3 Refills Prov:ALBA,NAYAN S. 11/08/18 Polyvinyl Alcohol* ([place] Tears*) 1.4% - 15 Ml Drops, 2 DROP BOTH EYES Q6H PRN for DRY EYES, #1 BOTTLE 1 Refill Prov:RADIANE,NAYAN S. 11/08/18 Baclofen* (Baclofen*) 10 Mg Tablet, 5 MG PO TID, #60 TAB 1 Refill Prov:RADIANE,NAYAN S. 11/08/18 Erythromycin* (Erythromycin* EC) 250 Mg Capsule., 250 MG PO TID, #90 2 Refills Prov:NAYAN WILLIS. 11/08/18 Pantoprazole* (Pantoprazole*) 40 Mg Tablet.dr, 40 MG PO BID, #60 TAB Prov:VIINCIUS YAÑEZ MD 10/29/18 Sucralfate (Carafate) 1 Gm Tablet, 1 GM PO QID, #60 TAB Prov:VINICIUS YAÑEZ MD 10/29/18 Losartan Potassium* (Cozaar*) 50 Mg Tablet, 100 MG PO DAILY, #60 TAB Prov:VINICIUS YAÑEZ MD 10/29/18 Hyoscyamine Sulfate* (Hyoscyamine Sulfate*) 0.125 Mg Tab.subl, 0.125 MG PO Q8 PRN for NAUSEA, #60 TAB Prov:VINICIUS YAÑEZ MD 10/29/18 Hydralazine Hcl* (Hydralazine Hcl*) 50 Mg Tab, 100 MG PO TID, #180 TAB Prov:VINICIUS YAÑEZ MD 10/29/18 Reported Medications Loperamide Hcl* (Imodium*) 2 Mg Capsule, 2 MG PO TID PRN for DIARRHEA, CAP MAX 16 mg/day 10/21/18 Insulin Lispro (Humalog) 100 Unit/1 Ml Cartridge, 0 SQ SLIDING SCALE 5-15 U, EA 10/21/18 Lorazepam* (Lorazepam*) 0.5 Mg Tablet, 0.5 MG PO Q6 PRN for AGITATION/ANXIETY, TAB 10/21/18 Calcium Carbonate* (Tums X-Str) 300 Mg Tab.chew, 300 MG PO Q2H PRN for GAS TROINTESTINAL UPSET, TAB.CHEW 10/21/18 Clonidine Hcl* (Clonidine Hcl*) 0.3 Mg Tablet, 0.4 MG PO BID, TAB 10/21/18 Spironolactone* (Spironolactone*) 100 Mg Tablet, 25 MG PO BID, TAB 10/21/18 Labetalol Hcl (Normodyne) 200 Mg Tablet, 1200 MG PO BID, TAB 10/21/18 Clonidine Patch (CLONIDINE PATCH) 0.3 Mg/24 Hr Patch, 2 PATCH.WK TD Q7D, #4 PATCH.WK 10/21/18 Discontinued Reported Medications Insulin Glargine* (Lantus*) 100 Unit/Ml Soln, 10 UNIT SC DAILY, #1 VIAL 10/21/18 Hydromorphone Hcl (Dilaudid) 2 Mg Tab, 2 MG PO Q4 PRN for PAIN, TAB 10/21/18 Pantoprazole (Protonix) 40 Mg Tabec, 40 MG PO BID, TAB 10/21/18 Follow-up Plan Please take your medications as prescribed and see your doctor in the clinic in the next 1 to 2 weeks. Primary Care Provider Not On Staff Doctor Time spent on discharge: > 30 minutes Pending Labs Laboratory Tests Test 11/07/18 12:19 11/07/18 17:13 11/07/18 21:44 11/08/18 05:13 Bedside 234 119 71 Glucose mg/dL (70-220) mg/dL (70-220) mg/dL (70-220) White Blood 5.9 Count 10^3/ul (4.8-1 0.8) Red Blood 2.85 Count 10^6/ul (4.20- 5.40) Hemoglobin 8.4 g/dl (12.0-16. 0) Hematocrit 26.9 % (37.0-47.0) Mean 94.4 Corpuscular fl (82.0-101.0 Volume ) Mean 29.5 Corpuscular pg (29.0-33.0) Hemoglobin Mean 31.2 Corpuscular g/dl (32.0-37. Hemoglobin Conc 0) ent Red Cell 17.2 Distribution % (11.5-14.5) Width Platelet Count 224 10^3/UL (140-4 15) Mean Platelet 10.0 Volume fl (7.4-10.4) Immature 0.200 Granulocytes % % (0.001-0.429 ) Neutrophils % 69.0 % (39.0-77.0) Lymphocytes % 9.3 % (15.0-51.0) Monocytes % 11.0 % (0.0-11.0) Eosinophils % 8.8 % (0.0-7.0) Basophils % 1.7 % (0.0-2.0) Nucleated Red 0.0 Blood Cells % /100WBC (0.0-0 .0) Immature 0.010 Granulocytes # 10^3/ul (0.0-0 .031) Neutrophils # 4.1 10^3/ul (1.6-7 .5) Lymphocytes # 0.6 10^3/ul (0.8-2 .9) Monocytes # 0.7 10^3/ul (0.3-0 .9) Eosinophils # 0.5 10^3/ul (0.0-0 .5) Basophils # 0.1 10^3/ul (0.0-0 .1) Nucleated Red 0.0 Blood Cells # 10^3/ul (0.0-0 .0) Test 11/08/18 05:14 11/08/18 06:38 11/08/18 08:33 Sodium Level 139 mmol/L (135-144 ) Potassium 4.0 Level mmol/L (3.5-5.1 ) Chloride Level 100 mmol/L (97-110) Carbon Dioxide 27 Level mmol/L (21-31) Anion Gap 12 (5-13) Blood Urea 16 mg/dl (7-20) Nitrogen Creatinine 4.19 mg/dl (0.44-1.0 0) Est Glomerular 13 mL/min (>60) Filtrat Rate mL/min Glucose Level 168 mg/dl (70-220) Calcium Level 9.1 mg/dl (8.4-10.2 ) Bedside 155 132 Glucose mg/dL (70-220) mg/dL (70-220) NAYAN WILLIS November 08, 2018 10:58
[2018-11-08] MEDS: BACLOFEN 10 MG TAB PO SCH ×3 (12:22→20:17)
[2018-11-08] MEDS: ONDANSETRON 4 MG INJ IV PRN ×2 (12:44→19:17)
--- NOTE | 2018-11-08 15:36 | PN ---
Date/Time of Note Date/Time of Note DATE: 11/08/18 TIME: 15:33 Assessment/Plan VTE Prophylaxis Risk score (from Nsg)>0 risk: 8 SCD applied (from Nsg): Yes Pharmacological prophylaxis: heparin Lines/Catheters IV Catheter Type (from Nrsg): PERMACATH Urinary Cath still in place: No Assessment/Plan Assessment/Plan Assessment: History of gastroparesis Type I diabetes- with hyperglycemia History of PUD IBS - D HTN Normocytic anemia ESRD- on HD Right tib/fib fracture Partially blind Diarrhea Plan: Continue antiemetic therapy Continue erythromycin-Reglan will not be started as patient does have an allergy Continue PPI/Carafate x 4weeks- given recent findings of Soft- renal/diabetic Patient seen in collaboration with Dr. Paul Subjective: She is doing well. She is tolerating the diet well. Patient states diarrhea improved. Outpatient follow-up to review stool studies results. Pending discharge home today. Exam PHYSICAL EXAMINATION: GENERAL: Partially blind chronically ill-appearing alert & oriented x 3, in no acute distress SKIN: Multiple bruises, dialysis access EARS/NOSE AND THROAT: Ears normal, nose normal, oropharynx normal. NECK: Supple, no masses. CHEST: Inspection within normal limits. CARDIOVASCULAR: Heart: Regular rate and rhythm RESPIRATORY: Lungs clear to auscultation. GASTROINTESTINAL AND LIVER: Abdomen: Soft, mild tenderness, non-distended, no hernias, no masses, normoactive bowel sounds. Rectal: Deferred. Result Diagram: 11/08/18 0513 11/08/18 0514 Results 24hrs Laboratory Tests Test 11/07/18 17:13 11/07/18 21:44 11/08/18 05:13 11/08/18 05:14 Bedside Glucose 119 71 White Blood Count 5.9 Red Blood Count 2.85 L Hemoglobin 8.4 L Hematocrit 26.9 L Mean Corpuscular 94.4 Volume Mean Corpuscular 29.5 Hemoglobin Mean Corpuscular 31.2 L Hemoglobin Concent Red Cell 17.2 H Distribution Width Platelet Count 224 Mean Platelet Volume 10.0 Immature 0.200 Granulocytes % Neutrophils % 69.0 Lymphocytes % 9.3 L Monocytes % 11.0 Eosinophils % 8.8 H Basophils % 1.7 Nucleated Red Blood 0.0 Cells % Immature 0.010 Granulocytes # Neutrophils # 4.1 Lymphocytes # 0.6 L Monocytes # 0.7 Eosinophils # 0.5 Basophils # 0.1 Nucleated Red Blood 0.0 Cells # Sodium Level 139 Potassium Level 4.0 Chloride Level 100 Carbon Dioxide Level 27 Anion Gap 12 Blood Urea Nitrogen 16 # Creatinine 4.19 #H Est Glomerular 13 L Filtrat Rate mL/min Glucose Level 168 Calcium Level 9.1 Test 11/08/18 06:38 11/08/18 08:33 11/08/18 11:43 11/08/18 12:19 Bedside Glucose 155 132 46 *L 102 Exam/Review of Systems Exam Vitals Vital Signs Date Temp Pulse Resp B/P (MAP) Pulse Ox O2 O2 Flow FiO2 Time Delivery Rate 11/08/18 77 12:17 11/08/18 98.1 20 92/64 (73) 97 11:35 11/08/18 2.0 09:39 11/08/18 Nasal 08:08 Cannula Intake and Output 11/07/18 11/07/18 11/08/18 1414:59 22:59 06:59 IntakeIntake Total 200 ml OutputOutput Total 3400 ml BalanceBalance -3200 ml Results Results 24hrs Laboratory Tests Test 11/07/18 17:13 11/07/18 21:44 11/08/18 05:13 11/08/18 05:14 Bedside Glucose 119 71 White Blood Count 5.9 Red Blood Count 2.85 L Hemoglobin 8.4 L Hematocrit 26.9 L Mean Corpuscular 94.4 Volume Mean Corpuscular 29.5 Hemoglobin Mean Corpuscular 31.2 L Hemoglobin Concent Red Cell 17.2 H Distribution Width Platelet Count 224 Mean Platelet Volume 10.0 Immature 0.200 Granulocytes % Neutrophils % 69.0 Lymphocytes % 9.3 L Monocytes % 11.0 Eosinophils % 8.8 H Basophils % 1.7 Nucleated Red Blood 0.0 Cells % Immature 0.010 Granulocytes # Neutrophils # 4.1 Lymphocytes # 0.6 L Monocytes # 0.7 Eosinophils # 0.5 Basophils # 0.1 Nucleated Red Blood 0.0 Cells # Sodium Level 139 Potassium Level 4.0 Chloride Level 100 Carbon Dioxide Level 27 Anion Gap 12 Blood Urea Nitrogen 16 # Creatinine 4.19 #H Est Glomerular 13 L Filtrat Rate mL/min Glucose Level 168 Calcium Level 9.1 Test 11/08/18 06:38 11/08/18 08:33 11/08/18 11:43 11/08/18 12:19 Bedside Glucose 155 132 46 *L 102 Medications Medication Current Medications IV Flush (NS 3 ml) 3 ml PER PROTOCOL IV ; Start 11/01/18 at 19:30 Heparin Sodium (Porcine) (Heparin (5000 Units/1ml)) 5,000 unit Q12 SC Last administered on 11/08/18 08:46; Admin Dose 5,000 UNIT; Start 11/01/18 at 21:00 Hydromorphone HCl (Dilaudid) 4 mg Q4H PRN PO SEVERE PAIN LEVEL 7-10 Last administered on 11/08/18 10:12; Admin Dose 4 MG; Start 11/02/18 at 08:30 Calcium Carbonate (Tums) 500 mg Q2H PRN PO GASTROINTESTINAL UPSET Last administered on 11/04/18 07:56; Admin Dose 500 MG; Start 11/02/18 at 10:00 Clonidine (Catapres) 0.4 mg BID PO Last administered on 11/08/18 08:37; Admin Dose 0.4 MG; Start 11/02/18 at 21:00 Hydralazine HCl (Apresoline) 100 mg TID PO Last administered on 11/08/18 14:14; Admin Dose 100 MG; Start 11/02/18 at 13:00 Hyoscyamine (Levsin (Sl)) 0.125 mg Q8H PRN PO NAUSEA Last administered on 11/04/18 12:10; Admin Dose 0.125 MG; Start 11/02/18 at 09:30 Labetalol HCl (Normodyne) 1,200 mg BID PO Last administered on 11/08/18 08:37; Admin Dose 1,200 MG; Start 11/02/18 at 09:30 Loperamide HCl (Imodium Cap) 2 mg TID PRN PO DIARRHEA; Start 11/02/18 at 09:30 Losartan Potassium (Cozaar) 100 mg DAILY PO Last administered on 11/08/18 08:36; Admin Dose 100 MG; Start 11/02/18 at 10:00 Sucralfate (Carafate) 1 gm QID PO Last administered on 11/08/18 12:22; Admin Dose 1 GM; Start 11/02/18 at 13:00; Stop 11/16/18 at 12:59 Miscellaneous Information 1 ea NOTE XX ; Start 11/02/18 at 10:00 Glucose (Glutose) 15 gm Q15M PRN PO DECREASED GLUCOSE; Start 11/02/18 at 10:00 Glucose (Glutose) 22.5 gm Q15M PRN PO DECREASED GLUCOSE Last administered on 11/08/18 11:50; Admin Dose 22.5 GM; Start 11/02/18 at 10:00 Dextrose (D50w Syringe) 25 ml Q15M PRN IV DECREASED GLUCOSE Last administered on 11/04/18 18:07; Admin Dose 25 ML; Start 11/02/18 at 10:00 Dextrose (D50w Syringe) 50 ml Q15M PRN IV DECREASED GLUCOSE Last administered on 11/03/18 17:05; Admin Dose 50 ML; Start 11/02/18 at 10:00 Glucagon (Glucagen) 1 mg Q15M PRN IM DECREASED GLUCOSE; Start 11/02/18 at 10:00 Glucose (Glutose) 15 gm Q15M PRN BUCCAL DECREASED GLUCOSE Last administered on 11/04/18 17:39; Admin Dose 15 GM; Start 11/02/18 at 10:00 Hydralazine HCl (Apresoline) 20 mg Q6H PRN IV SBP>185 Last administered on 11/07/18 17:21; Admin Dose 20 MG; Start 11/02/18 at 11:30 Labetalol HCl (Labetalol) 20 mg Q4H PRN IV SBP>185 Last administered on 11/07/18 18:22; Admin Dose 20 MG; Start 11/02/18 at 12:00 Eye Lubricant (Artificial Tears Oph) 2 drop Q6H PRN BOTH EYES DRY EYES Last administered on 11/03/18 04:19; Admin Dose 2 DROP; Start 11/02/18 at 16:00 Clonidine HCl (Catapres-Tts 3 Patch) 2 patch Q7D TRANSDERM Last administered on 11/02/18 22:54; Admin Dose 2 PATCH; Start 11/02/18 at 20:00 Trimethobenzamide HCl (Tigan) 200 mg Q6H PRN IM NAUSEA AND/OR VOMITING Last administered on 11/04/18 12:09; Admin Dose 200 MG; Start 11/03/18 at 15:00 Pantoprazole (Protonix Iv) 40 mg BID@06,18 IV Last administered on 11/08/18 06:42; Admin Dose 40 MG; Start 11/03/18 at 18:00 Epoetin Vic-epbx (RETACRIT(esrd)) 10,000 unit MoWeFr@1700 SC Last administered on 11/06/18 17:40; Admin Dose 10,000 UNIT; Start 11/04/18 at 17:00 Diphenhydramine HCl (Benadryl) 25 mg Q6H PRN PO ITCHING; Start 11/04/18 at 11:30 Ondansetron HCl (Zofran Inj) 8 mg Q4H PRN IV NAUSEA/VOMITING Last administered on 11/08/18 12:44; Admin Dose 8 MG; Start 11/04/18 at 12:30 Lorazepam (Ativan) 1 mg Q8H PRN IV AGITATION/ANXIETY Last administered on 11/08/18 08:55; Admin Dose 1 MG; Start 11/04/18 at 14:30 Erythromycin (Erythromycin) 250 mg TID PO Last administered on 11/08/18 12:22; Admin Dose 250 MG; Start 11/04/18 at 15:00 Doxazosin Mesylate (Cardura) 1 mg HS PO Last administered on 11/07/18 21:49; Admin Dose 1 MG; Start 11/04/18 at 21:00 Acetaminophen/ Hydrocodone Bitart ([place] (5/325)) 1 tab Q4H PRN PO MODERATE PAIN LEVEL 4-6; Start 11/04/18 at 18:30 Heparin Sodium (Porcine) (Heparin (1000 Units/ml)) 3,700 unit AFTER DIALYSIS CATHETER Last administered on 11/07/18 19:42; Admin Dose 3,700 UNIT; Start 11/05/18 at 11:00 Spironolactone (Aldactone) 50 mg BID PO Last administered on 11/08/18 08:37; Admin Dose 50 MG; Start 11/06/18 at 09:00 Hydromorphone HCl (Dilaudid) 1 mg Q6H PRN IV SEVERE PAIN LEVEL 7-10 Last administered on 11/08/18 14:14; Admin Dose 1 MG; Start 11/06/18 at 10:30 Insulin Glargine (Lantus) 6 units Q12 SC Last administered on 11/08/18at 08:46; Admin Dose 6 UNITS; Start 11/07/18 at 09:00 Insulin Aspart (Novolog Insulin Pen) 2 unit WITH MEALS SC Last administered on 11/08/18at 09:00; Admin Dose 2 UNIT; Start 11/07/18 at 18:00 Insulin Aspart (Novolog Insulin Pen) NOVOLOG *CUSTOM* ALGORITHM AC MEALS AND BEDTIME SC ; Start 11/07/18 at 21:00 Sevelamer Carbonate (Renvela) 800 mg WITH MEALS PO Last administered on 11/08/18at 12:22; Admin Dose 800 MG; Start 11/08/18 at 08:00 Baclofen (Lioresal) 5 mg TID PO Last administered on 11/08/18at 14:13; Admin Dose 5 MG; Start 11/08/18 at 11:00 ESTEFANY TAMAYO NP November 08, 2018 15:36
[2018-11-08] MEDS: EPOETIN ALFA-EPBX (ESRD) 10,000 UNIT/ML VIAL SC SCH (17:02)
[2018-11-08] MEDS: DOXAZOSIN 1 MG TAB PO SCH (20:17)
[2018-11-08] MEDS ORDERED: KETOROLAC 30 MG INJ IV STA (21:32)
[2018-11-08] MEDS: hydrALAzine 20 MG INJ IV PRN (22:08)
[2018-11-09] MEDS ORDERED: CLONIDINE 0.3 MG/24 HR PATCH TRANSDERM SCH (10:00)
== END 2018-11-08 22:15 | disposition home or self-care (01) | DRG 637 ==
LOC: E/R 14:46 → ICU 18:00 → SUATTDRO 18:11 → 6WM 11-02 20:10
PROVIDERS: ADMIT Internal Medicine; ATTEND Hospitalist
DX: E10.10 Type 1 diabetes mellitus with ketoacidosis without coma (principal); N18.6 End stage renal disease; S82.201A Unspecified fracture of shaft of right tibia, initial encounter for closed fracture; N25.81 Secondary hyperparathyroidism of renal origin; K31.84 Gastroparesis; E87.5 Hyperkalemia; E10.22 Type 1 diabetes mellitus with diabetic chronic kidney disease; S82.401A Unspecified fracture of shaft of right fibula, initial encounter for closed fracture; D63.1 Anemia in chronic kidney disease; E10.319 Type 1 diabetes mellitus with unspecified diabetic retinopathy without macular edema; E10.40 Type 1 diabetes mellitus with diabetic neuropathy, unspecified; E10.42 Type 1 diabetes mellitus with diabetic polyneuropathy; E55.9 Vitamin D deficiency, unspecified; Z99.2 Dependence on renal dialysis; G89.4 Chronic pain syndrome; H54.7 Unspecified visual loss; F41.9 Anxiety disorder, unspecified; R19.7 Diarrhea, unspecified
CPT/HCPCS: 36415; 71045; 73590; 80048; 80053; 82803; 82947; 82962; 83036; 83605; 83735; 84100; 84681; 84703; 85025; 86674; 87045; 87075; 87081; 87177; 87205; 90935; 92526; 92610; 96374; 96375; 97110; 97161; C9113; J0360; J1170; J1200; J1610; J1644; J1815; J2060; J2405; J3250; J3480; J7120; Q5105

== ENCOUNTER 2018-11-10 14:00 | Inpatient (IN) | payer OTHER ==
[~2018-11-10] VITALS: Ht 162.6 cm; Wt 74.0 kg
[2018-11-10] MEDS: ACCU-CHEK XX SCH ×2 (06:30→07:30)
[2018-11-10] MEDS: SUCRALFATE 1 GM TAB PO SCH (07:00)
[2018-11-10] MEDS: ERYTHROMYCIN BASE (DR) 250 MG CAP PO SCH (07:00)
[2018-11-10] MEDS: BACLOFEN 10 MG TAB PO SCH (07:01)
[2018-11-10] MEDS: LABETALOL 200 MG TAB PO SCH (07:01)
[~2018-11-10 14:00] MED LIST changes: +BACL10TA PO; +ERYT250C52 PO; +HYDR-3980 PO; -HYDR2TAB3 PO; +Insulin Glargine SC; -LANT3I SC; +NOVO3I SC; +POLY15DR11 BOTH EYES
[2018-11-10] MEDS ORDERED: SOD CHLORIDE 0.9% 700 ML IV ONE (14:30)
[2018-11-10] MEDS ORDERED: hydrALAzine 20 MG INJ IV ONE (14:30)
[2018-11-10] MEDS ORDERED: LANT3I SC (15:11)
[2018-11-10] MEDS ORDERED: ONDANSETRON 4 MG INJ IV STA ×2 (16:04→20:14)
[2018-11-10] MEDS ORDERED: HYDROmorphONE 1 MG/ML SYG IV STA (16:04)
[2018-11-10] MEDS ORDERED: D10/0.45% NACL + KCL 40 MEQ 1,000 ML IV SCH ×2 (16:15→19:23)
[2018-11-10] MEDS ORDERED: NS + KCL 30 MEQ 1,000 ML IV SCH ×2 (16:15→19:23)
[2018-11-10] MEDS ORDERED: NS + KCL 40 MEQ 1,000 ML IV SCH ×2 (16:15→19:23)
[2018-11-10] MEDS ORDERED: DEXTROSE 10%/0.45% NACL 1,000 ML IV SCH ×2 (16:15→19:23)
[2018-11-10] MEDS ORDERED: D10/0.45% NACL + KCL 30 MEQ 1,000 ML IV SCH (16:15)
[2018-11-10] MEDS ORDERED: SOD CHLORIDE 0.9% 1,000 ML IV SCH ×2 (16:15→19:23)
[2018-11-10] MEDS ORDERED: DEXTROSE 50% 50 ML SYRINGE IV PRN ×4 (16:30→19:30)
[2018-11-10] MEDS ORDERED: LACTATED RINGER'S 700 ML IV ONE (16:30)
[2018-11-10] MEDS: INSULIN REGULAR, HUMAN 100 UNIT in SOD CHLORIDE 0.9% 100 ML IV SCH ×4 (16:52→19:56)
--- NOTE | 2018-11-10 19:14 | ERD ---
ER Documentation Chief Complaint Chief Complaint weak, hyperglycemia and HTN BS "hi" HPI This 28 female complains of weakness hyperglycemia and elevated blood pressure. She is been compliant with her dialysis, but admits compliance with her home medications. Denies fevers chills nausea vomiting. Denies any other current complaints. Complains of diffuse abdominal pain as well. Pain is mild to moderate intensity with no exacerbating relieving factors. ROS All systems reviewed and are negative except as per history of present illness. Medications Home Meds Active Scripts Hydrocodone/Acetaminophen ([place] 10-325 Tablet) 1 Each Tablet, 1 EACH PO Q6 for 14 Days, TAB Prov:NAYAN WILLIS S. 11/08/18 Insulin Aspart* (Novolog Insulin Pen*) 100 Unit/Ml Soln, 2 UNIT SC WITH MEALS, #1 BOTTLE 3 Refills Prov:JOSE WILLISP S. 11/08/18 Polyvinyl Alcohol* ([place] Tears*) 1.4% - 15 Ml Drops, 2 DROP BOTH EYES Q6H PRN for DRY EYES, #1 BOTTLE 1 Refill Prov:NAYAN WILLIS S. 11/08/18 Baclofen* (Baclofen*) 10 Mg Tablet, 5 MG PO TID, #60 TAB 1 Refill Prov:NAYAN WILLIS S. 11/08/18 Erythromycin* (Erythromycin* EC) 250 Mg Capsule.dr, 250 MG PO TID, #90 2 Refills Prov:JOSE WILLISP S. 11/08/18 Pantoprazole* (Pantoprazole*) 40 Mg Tablet.dr, 40 MG PO BID, #60 TAB Prov:VINICIUS YAÑEZ MD 10/29/18 Sucralfate (Carafate) 1 Gm Tablet, 1 GM PO QID, #60 TAB Prov:VINICIUS YAÑEZ MD 10/29/18 Losartan Potassium* (Cozaar*) 50 Mg Tablet, 100 MG PO DAILY, #60 TAB Prov:VINICIUS YAÑEZ MD 10/29/18 Hyoscyamine Sulfate* (Hyoscyamine Sulfate*) 0.125 Mg Tab.subl, 0.125 MG PO Q8 PRN for NAUSEA, #60 TAB Prov:VINICIUS YAÑEZ MD 10/29/18 Hydralazine Hcl* (Hydralazine Hcl*) 50 Mg Tab, 100 MG PO TID, #180 TAB Prov:VINICIUS YAÑEZ MD 10/29/18 Reported Medications Insulin Glargine* (Lantus*) 100 Unit/Ml Soln, 6 UNIT SC BID, #1 VIAL 11/10/18 Loperamide Hcl* (Imodium*) 2 Mg Capsule, 2 MG PO TID PRN for DIARRHEA, CAP MAX 16 mg/day 10/21/18 Insulin Lispro (Humalog) 100 Unit/1 Ml Cartridge, 0 SQ SLIDING SCALE 5-15 U, EA 10/21/18 Lorazepam* (Lorazepam*) 0.5 Mg Tablet, 0.5 MG PO Q6 PRN for AGITATION/ANXIETY, TAB 10/21/18 Calcium Carbonate* (Tums X-Str) 300 Mg Tab.chew, 300 MG PO Q2H PRN for GASTROINTESTINAL UPSET, TAB.CHEW 10/21/18 Clonidine Hcl* (Clonidine Hcl*) 0.3 Mg Tablet, 0.4 MG PO BID, TAB 10/21/18 Spironolactone* (Spironolactone*) 100 Mg Tablet, 25 MG PO BID, TAB 10/21/18 Labetalol Hcl (Normodyne) 200 Mg Tablet, 1200 MG PO BID, TAB 10/21/18 Clonidine Patch (CLONIDINE PATCH) 0.3 Mg/24 Hr Patch, 2 PATCH.WK TD Q7D, #4 PATCH.WK 10/21/18 Discontinued Reported Medications Insulin Glargine* (Lantus*) 100 Unit/Ml Soln, 10 UNIT SC DAILY, #1 VIAL 10/21/18 Hydromorphone Hcl (Dilaudid) 2 Mg Tab, 2 MG PO Q4 PRN for PAIN, TAB 10/21/18 Discontinued Scripts [Insulin Glargine] 100 UNITS/ML SOLN No Conflict Check, 6 UNITS SC Q12, #1 BOT TLE 3 Refills Prov:NAYAN WILLIS 11/08/18 Allergies Allergies: Coded Allergies: amlodipine (Verified Allergy, Intermediate, swelling of lips, 11/10/18) nifedipine (Verified Allergy, Intermediate, 11/10/18) adhesive tape (Verified Allergy, Mild, 11/10/18) benazepril (Verified Allergy, Mild, 11/10/18) ketorolac (Verified Allergy, Mild, 11/10/18) latex (Verified Allergy, Mild, 11/10/18) metoclopramide (Verified Allergy, Mild, 11/10/18) morphine (Verified Allergy, Mild, 11/10/18) tramadol (Verified Allergy, Mild, 11/10/18) clindamycin (Verified Allergy, Unknown, 11/10/18) PMhx/Soc History of Surgery: No Anesthesia Reaction: No Hx Neurological Disorder: No Hx Respiratory Disorders: No Hx Cardiac Disorders: No Hx Psychiatric Problems: No Hx Miscellaneous Medical Probl: Yes (Diabetes, Renal failure) Hx Alcohol Use: No Hx Substance Use: No Hx Tobacco Use: No Smoking Status: Never smoker Physical Exam Vitals Vital Signs Date Temp Pulse Resp B/P (MAP) Pulse Ox O2 O2 Flow FiO2 Time Delivery Rate 11/10/18 98.3 86 20 207/114 100 Room Air 18:00 (145) 11/10/18 98.3 85 20 184/101 100 Room Air 17:45 (128) 11/10/18 98.3 85 20 184/105 100 Room Air 17:30 (131) 11/10/18 98.3 86 20 167/96 98 Room Air 17:00 (119) 11/10/18 98.0 82 20 167/90 100 Room Air 16:45 (115) 11/10/18 97.5 83 20 167/96 100 Room Air 16:30 (119) 11/10/18 98.3 85 18 226/102 97 14:10 (143) Physical Exam Const: No acute distress Head: Atraumatic Eyes: Normal Conjunctiva ENT: Normal External Ears, Nose and Mouth. Neck: Full range of motion. No meningismus. Resp: Clear to auscultation bilaterally Cardio: Regular rate and rhythm, no murmurs Abd: Soft, non tender, non distended. Normal bowel sounds Skin: No petechiae or rashes Back: No midline or flank tenderness Ext: No cyanosis, or edema Neur: Awake and alert Psych: Normal Mood and Affect Result Diagram: 11/10/18 1541 11/10/18 1541 Results 24 hrs Laboratory Tests Test 11/10/18 14:22 11/10/18 15:41 11/10/18 16:38 11/10/18 17:35 Blood Gas Blood venous Specimen Source Arterial Blood 11/10/2018 3:50:3 Date Drawn 6 PM Arterial Blood OTHER Gas Puncture Site Maicol Test N/A Venous Blood pH 7.170 Venous Blood 24.9 mmHG pCO2 (Temp Corrected) Venous Blood pO2 58.9 mmHG (Temp Corrected) Venous Blood 8.9 mmol/L HCO3 Venous Blood 81.5 mmHG Oxygen Saturation Venous Blood -18.0 mmol/L Base Excess Venous Blood 9.6 g/dl Total Hemoglobin Venous Blood 81.1 % Oxyhemoglobin Venous Blood 0.2 % Methemoglobin Carboxyhemoglobi 0.3 % n Blood Gas 37.0 C Temperature Blood Gas ROOM AIR Modality FiO2 21.0 % Blood Gas L BOWEN SERRATO Critical Value Read Back Blood Gas T [facility] Notified Whom Blood Gas 11/10/2018 3:59:3 Notified Time 0 PM White Blood 8.3 10^3/ul Count Red Blood Count 2.81 10^6/ul Hemoglobin 8.4 g/dl Hematocrit 28.7 % Mean Corpuscular 102.1 fl Volume Mean Corpuscular 29.9 pg Hemoglobin Mean Corpuscular 29.3 g/dl Hemoglobin Isabel nt Red Cell 18.5 % Distribution Width Platelet Count 223 10^3/UL Mean Platelet 10.8 fl Volume Immature 0.500 % Granulocytes % Neutrophils % 86.0 % Lymphocytes % 3.1 % Monocytes % 8.2 % Eosinophils % 1.4 % Basophils % 0.8 % Nucleated Red 0.0 /100WBC Blood Cells % Immature 0.040 10^3/ul Granulocytes # Neutrophils # 7.1 10^3/ul Lymphocytes # 0.3 10^3/ul Monocytes # 0.7 10^3/ul Eosinophils # 0.1 10^3/ul Basophils # 0.1 10^3/ul Nucleated Red 0.0 10^3/ul Blood Cells # Sodium Level 135 mmol/L Potassium Level 6.3 mmol/L Chloride Level 98 mmol/L Carbon Dioxide 8 mmol/L Level Anion Gap 29 Blood Urea 35 mg/dl Nitrogen Creatinine 8.69 mg/dl Est Glomerular 5 mL/min Filtrat Rate mL/min Glucose Level 779 mg/dl Hemoglobin A1c 7.1 % Calcium Level 9.3 mg/dl Phosphorus Level 4.8 mg/dl Magnesium Level 2.4 mg/dl Troponin I < 0.012 ng/ml Bedside Glucose > 595 mg/dL > 595 mg/dL Current Medications Medications Dose Sig/Alyssa Start Time Status Last (Trade) Ordered Route PRN Stop Time Admin Dose Reason Admin Sodium 700 ml @ ONCE ONCE 11/10/18 DC 11/10/18 Chloride 700 mls/hr IV 14:30 15:53 11/10/18 15:29 Hydralazine 10 mg ONCE ONCE 11/10/18 DC 11/10/18 HCl IV 14:30 15:53 (Apresoline) 11/10/18 14:31 1 mg ONCE STAT 11/10/18 DC 11/10/18 Hydromorphone IV 16:04 16:15 HCl 11/10/18 16:05 (Dilaudid) Ondansetron 4 mg ONCE STAT 11/10/18 DC 11/10/18 HCl (Zofran IV 16:04 16:14 Inj) 11/10/18 16:05 Potassium 1,000 ml @ Q0M IV 11/10/18 Chloride/Sodi 0 mls/hr 16:15 um Chloride Potassium 1,000 ml @ Q0M IV 11/10/18 Chloride/Dext 0 mls/hr 16:15 sara/ Sod Cl Potassium 1,000 ml @ Q0M IV 11/10/18 Chloride/Sodi 0 mls/hr 16:15 um Chloride Potassium 1,000 ml @ Q0M IV 11/10/18 Chloride/Dext 0 mls/hr 16:15 sara/ Sod Cl Sodium 1,000 ml @ Q0M IV 11/10/18 Chloride 0 mls/hr 16:15 1,000 ml @ Q0M IV 11/10/18 Dextrose/Sodi 0 mls/hr 16:15 um Chloride Insulin 101 ml @ ER DKA 11/10/18 11/10/18 Human 7.07 mls/hr PROTOCOL IV 16:30 16:52 Regular 100 unit/ Sodium Chloride Lactated 700 ml @ ONCE ONCE 11/10/18 DC Ringer's 700 mls/hr IV 16:30 11/10/18 17:29 HYPOGLYCEM 11/10/18 Miscellaneous HYPOGLYCEMIA PROTOCOL PRN 16:30 TREATMENT XX Information .HYPOGLYCEMIA (* PROTOCOL Miscellaneous Pharmacy Order) Dextrose 50 ml Q15M PRN 11/10/18 (D50w IV 16:30 Syringe) .DECREASED GLUCOSE Dextrose 25 ml Q15M PRN 11/10/18 (D50w IV 16:30 Syringe) .DECREASED GLUCOSE Procedures/MDM EKG: Rate/Rhythm: [Normal Sinus Rhythm] QRS, ST, T-waves: [No changes consistent w/ acute ischemia] Impression: [No evidence of ischemia or arrhythmia] Chest X-ray 1V Interpreted by me: Soft Tissue: No acute abnormalities Bones: No acute abnormalities Mediastinum/Cardiac Silhouette/Lungs: [No acute abnormalities] Medical decision make: 28 female obvious diabetic ketoacidosis. Started on DKA protocol here. Patient will be admitted to the intensive care unit to the hospitalist group Critical Care: Time: 45 minutes, independent of any separately billable procedural time Treatments/Evaluations: Close monitoring and treatment of unstable vital signs, cardiorespiratory, and neurologic status, while maintaining tight balance of fluid, respiratory, and cardiac interventions. Departure Diagnosis: Primary Impression: Hyperglycemia Additional Impression: Diabetic ketoacidosis Diabetes mellitus type: other specified (including DAMIAN) Diabetes mellitus complication detail: without coma Qualified Codes: E13.10 - Other specified diabetes mellitus with ketoacidosis without coma Condition: Critical GUZMAN WALLACE November 10, 2018 19:14
[2018-11-10] MEDS ORDERED: MAGNESIUM HYDROXIDE 30ML CUP PO PRN (19:30)
[2018-11-10] MEDS ORDERED: METOCLOPRAMIDE 10 MG INJ IV PRN (19:30)
[2018-11-10] MEDS ORDERED: ONDANSETRON 4 MG INJ IV PRN (19:30)
[2018-11-10] MEDS ORDERED: ARTIFICIAL TEARS 15 ML OPH BOTH EYES PRN (19:30)
[2018-11-10] MEDS ORDERED: DOCUSATE SODIUM 100 MG CAP PO PRN (19:30)
[2018-11-10] MEDS ORDERED: ALBUTEROL/IPRATROPIUM (NEB) 3 ML AMP HHN PRN (19:30)
[2018-11-10] MEDS ORDERED: NACL 0.9% 3 ML SYG IV SCH (19:30)
[2018-11-10] MEDS ORDERED: INSULIN REGULAR, HUMAN 100 UNIT in SOD CHLORIDE 0.9% 100 ML IV SCH ×2 (19:30)
[2018-11-10] MEDS ORDERED: HYDROCODONE/APAP (5/325) TAB PO PRN (19:30)
[2018-11-10] MEDS ORDERED: LORAZEPAM 2 MG INJ IV PRN (19:30)
[2018-11-10] MEDS ORDERED: Please discontinue ALL previous duplicate IV Fluid orders for DKA from ER XX ONE (19:30)
[2018-11-10] MEDS ORDERED: ACETAMINOPHEN 325 MG TAB PO PRN (19:30)
[2018-11-10] MEDS ORDERED: CALCIUM CARBONATE 750 MG CHEW TAB PO PRN (19:30)
[2018-11-10] MEDS ORDERED: HYOSCYAMINE 0.125 MG SUBL TAB PO PRN (19:30)
[2018-11-10] MEDS ORDERED: NITROGLYCERIN (SL) 0.4 MG TAB SL PRN (19:30)
[2018-11-10] MEDS ORDERED: ONDANSETRON INJ 8 MG in SOD CHLORIDE 0.9% 50 ML IV PRN (20:00)
[2018-11-10] MEDS ORDERED: HYDROmorphONE 0.5 MG/0.5 ML SYG IV STA (20:58)
[2018-11-11] VITALS (25 sets, daily range): BP systolic 133–181; BP diastolic 47–166; PULSE 76–86; RESP 12–22; Ht 162.6 cm; Wt 74.0 kg
[2018-11-11] MEDS: ACCU-CHEK XX SCH ×16 (00:30→17:48)
[2018-11-11] MEDS: D10/0.45% NACL + KCL 30 MEQ 1,000 ML IV SCH ×2 (03:08→08:29)
--- NOTE | 2018-11-11 05:15 | HP ---
Date/Time of Note Date/Time of Note DATE: 11/10/18 TIME: 23:00 Assessment/Plan VTE Prophylaxis Pharmacological prophylaxis: heparin Lines/Catheters IV Catheter Type (from Nrs): Saline Lock Assessment/Plan Assessment/Plan 1. DKA: Patient with a history of type 1 diabetes -She was just discharged from here after she was treated for DKA -Continue insulin with DKA protocol -Admit to ICU -Correct electrolytes 2. Hypertensive urgency: BP better controlled -Adjust antihypertensive as needed 3. ESRD on HD: Nephrology for dialysis 4. Recent right tibia/fibula fracture: Conservatively managed 5. Bilateral periorbital swelling: Appears fluid filled -Empiric antibiotic Result Diagram: 11/10/18 1541 11/11/18 0001 Results 24hrs Laboratory Tests Test 11/10/18 14:22 11/10/18 15:41 11/10/18 16:38 11/10/18 17:35 Blood Gas Blood venous Specimen Source Arterial Blood 11/10/2018 3:50: Date Drawn 36 PM Arterial Blood OTHER Gas Puncture Site Maicol Test N/A Venous Blood pH 7.170 *L Venous Blood 24.9 L pCO2 (Temp Corrected) Venous Blood pO2 58.9 H (Temp Corrected) Venous Blood 8.9 L HCO3 Venous Blood 81.5 H Oxygen Saturation Venous Blood -18.0 L Base Excess Venous Blood 9.6 Total Hemoglobin Venous Blood 81.1 Oxyhemoglobin Venous Blood 0.2 Methemoglobin Carboxyhemoglobi 0.3 n Blood Gas 37.0 Temperature Blood Gas ROOM AIR Modality FiO2 21.0 Blood Gas L BOWEN SERRATO Critical Value Read Back Blood Gas Kirsten COON [facility] Notified Whom Blood Gas 11/10/2018 3:59: Notified Time 30 PM White Blood 8.3 # Count Red Blood Count 2.81 L Hemoglobin 8.4 L Hematocrit 28.7 L Mean Corpuscular 102.1 H Volume Mean Corpuscular 29.9 Hemoglobin Mean Corpuscular 29.3 L Hemoglobin Isabel nt Red Cell 18.5 H Distribution Width Platelet Count 223 Mean Platelet 10.8 H Volume Immature 0.500 H Granulocytes % Neutrophils % 86.0 H Lymphocytes % 3.1 L Monocytes % 8.2 Eosinophils % 1.4 Basophils % 0.8 Nucleated Red 0.0 Blood Cells % Immature 0.040 H Granulocytes # Neutrophils # 7.1 Lymphocytes # 0.3 L Monocytes # 0.7 Eosinophils # 0.1 Basophils # 0.1 Nucleated Red 0.0 Blood Cells # Sodium Level 135 Potassium Level 6.3 *H Chloride Level 98 Carbon Dioxide 8 *L Level Anion Gap 29 H Blood Urea 35 H Nitrogen Creatinine 8.69 H Est Glomerular 5 L Filtrat Rate mL/min Glucose Level 779 *H Hemoglobin A1c 7.1 H Calcium Level 9.3 Phosphorus Level 4.8 Magnesium Level 2.4 Troponin I < 0.012 Bedside Glucose > 595 *H > 595 *H Test 11/10/18 19:28 11/10/18 19:40 11/10/18 20:12 11/10/18 21:00 Sodium Level 137 137 Potassium Level 5.2 H 5.4 H Chloride Level 99 100 Carbon Dioxide 9 *L 11 L Level Anion Gap 29 H 26 H Blood Urea 36 H 36 H Nitrogen Creatinine 8.55 H 8.67 H Est Glomerular 6 L 5 L Filtrat Rate mL/min Glucose Level 728 *H 721 *H Calcium Level 9.2 9.2 Phosphorus Level 4.7 4.8 Magnesium Level 2.4 2.4 Bedside Glucose > 595 *H Free Thyroxine 1.12 Blood Gas Blood venous Specimen Source Arterial Blood 11/10/2018 8:00: Date Drawn 37 PM Arterial Blood VENOUS LINE Gas Puncture Site Maicol Test N/A Venous Blood pH 7.209 L Venous Blood 30.0 L pCO2 (Temp Corrected) Venous Blood pO2 52.0 H (Temp Corrected) Venous Blood 11.7 L HCO3 Venous Blood 78.2 H Oxygen Saturation Venous Blood -14.9 L Base Excess Venous Blood 9.6 Total Hemoglobin Venous Blood 77.7 Oxyhemoglobin Venous Blood 0.3 Methemoglobin Carboxyhemoglobi 0.3 n Blood Gas 37.0 Temperature Blood Gas ROOM AIR Modality FiO2 21.0 Blood Gas UP Notified Whom Blood Gas 11/10/2018 8:15: Notified Time 02 PM Test 11/10/18 21:25 11/10/18 23:28 11/11/18 00:01 11/11/18 00:15 Bedside Glucose > 595 *H 461 *H Sodium Level 139 Potassium Level 4.2 Chloride Level 102 Carbon Dioxide 15 L Level Anion Gap 22 H Blood Urea 38 H Nitrogen Creatinine 7.35 H Est Glomerular 7 L Filtrat Rate mL/min Glucose Level 463 #*H Calcium Level 8.9 Phosphorus Level 3.9 Magnesium Level 2.2 Blood Gas Blood venous Specimen Source Arterial Blood 11/11/2018 12:45 Date Drawn :30 AM Arterial Blood VENOUS LINE Gas Puncture Site Maicol Test N/A Venous Blood pH 7.274 L Venous Blood 40.6 pCO2 (Temp Corrected) Venous Blood pO2 42.4 H (Temp Corrected) Venous Blood 18.4 L HCO3 Venous Blood 71.1 Oxygen Saturation Venous Blood -7.9 L Base Excess Venous Blood 9.1 Total Hemoglobin Venous Blood 70.4 Oxyhemoglobin Venous Blood 0.4 Methemoglobin Carboxyhemoglobi 0.6 n Blood Gas 37.0 Temperature Blood Gas ROOM AIR Modality FiO2 100.0 Blood Gas KM Notified Whom Blood Gas 11/11/2018 12:58 Notified Time :16 AM Test 11/11/18 00:32 11/11/18 01:24 11/11/18 02:34 11/11/18 03:39 POC Venous 2.2 *H Lactate Bedside Glucose 374 H 278 H 242 H Test 11/11/18 04:15 Blood Gas Blood venous Specimen Source Arterial Blood 11/11/2018 4:10: Date Drawn 08 AM Arterial Blood A-Line Gas Puncture Site Maicol Test N/A Venous Blood pH 7.341 Venous Blood 44.4 pCO2 (Temp Corrected) Venous Blood pO2 39.9 H (Temp Corrected) Venous Blood 23.5 HCO3 Venous Blood 71.7 Oxygen Saturation Venous Blood -2.2 Base Excess Venous Blood 9.0 Total Hemoglobin Venous Blood 70.9 Oxyhemoglobin Venous Blood 0.4 Methemoglobin Carboxyhemoglobi 0.7 n Blood Gas 37.0 Temperature Blood Gas Actual 22 Respiration Rate Blood Gas ROOM AIR Modality FiO2 21.0 Blood Gas GHISLAINE Britt MD Critical Value Read Back Blood Gas KB Notified Whom Blood Gas 11/11/2018 4:18: Notified Time 04 AM HPI/ROS Admit Date/Time Admit Date/Time Hx of Present Illness Patient is a 28-year-old female with a history of hypertension, type 1 diabetes, DKA, ESRD, recent right tibia/fib fracture conservatively managed who presented to ER complaining of generalized weakness and elevated blood glucose. Patient was just discharged from here yesterday after she was admitted for DKA. When she presented to the ER, she was found to have a blood pressure of 226/102. Lab consistent with DKA. She was started on DKA protocol and awaiting admission to ICU. She said she takes 10 units of insulin sometimes once a day sometimes 3 times a day. She appears somehow lethargic. She has periorbital swelling, worse on the right side. She is able to open her eyes. She said she always has " poor vision". PMH/Family/Social Past Medical History Medical History: other (See HPI) Medications Current Medications Insulin Human Regular 100 unit/ Sodium Chloride 101 ml @ 7.07 mls/hr ER DKA PROTOCOL IV Last administered on 11/10/18at 19:56; Admin Dose 7.07 MLS/HR; Start 11/10/18 at 16:30 Miscellaneous Information (* Miscellaneous Pharmacy Order) HYPOGLYCEMIA TREATMENT HYPOGLYCEM PROTOCOL PRN XX .HYPOGLYCEMIA PROTOCOL; Start 11/10/18 at 16:30 Dextrose (D50w Syringe) 50 ml Q15M PRN IV .DECREASED GLUCOSE; Start 11/10/18 at 16:30 Dextrose (D50w Syringe) 25 ml Q15M PRN IV .DECREASED GLUCOSE; Start 11/10/18 at 16:30 IV Flush (NS 3 ml) 3 ml PER PROTOCOL IV ; Start 11/10/18 at 19:30 Metoclopramide HCl (Reglan) 10 mg Q6H PRN IV NAUSEA/VOMITING Last administered on 11/10/18at 22:58; Admin Dose 10 MG; Start 11/10/18 at 19:30 Acetaminophen (Tylenol Tab) 650 mg Q6H PRN PO .PAIN 1-3 OR TEMP; Start 11/10/18 at 19:30 Acetaminophen/ Hydrocodone Bitart ([place] (5/325)) 1 tab Q6H PRN PO .MOD PAIN 4- 6; Start 11/10/18 at 19:30 Docusate Sodium (Colace) 100 mg Q12H PRN PO .CONSTIPATION; Start 11/10/18 at 19:30 Magnesium Hydroxide (Milk Of Mag) 30 ml DAILY PRN PO .CONSTIPATION; Start 11/10/18 at 19:30 Famotidine (Pepcid Iv) 10 mg DAILY@06 IV ; Start 11/11/18 at 06:00 Lorazepam (Ativan) 0.5 mg Q6H PRN IV ANXIETY Last administered on 11/10/18at 20:21; Admin Dose 0.5 MG; Start 11/10/18 at 19:30 Albuterol/ Ipratropium (Duoneb) 3 ml Q4H RESP THERAPY PRN HHN SHORTNESS OF BREATH; Start 11/10/18 at 19:30 Hydralazine HCl (Apresoline) 10 mg Q4H PRN IV ELEVATED BLOOD PRESSURE; Start 11/10/18 at 19:30 Nitroglycerin (Nitroglycerin (Sl Tab) 0.4 Mg) 1 tab Q5M PRN SL ANGINA; Start 11/10/18 at 19:30 Dextrose (D50w Syringe) 50 ml Q15M PRN IV For BS 50 or less; Start 11/10/18 at 19:30 Dextrose (D50w Syringe) 25 ml Q15M PRN IV BS between 50-70; Start 11/10/18 at 19:30 Diagnostic Test (Pha) (Accu-Chek) 1 ea Q1H XX ; Start 11/10/18 at 19:30 Miscellaneous Information (* Miscellaneous Pharmacy Order) HYPOGLYCEMIA TREATMENT HYPOGLYCEM PROTOCOL PRN XX Hypoglycemia (BS < 70); Start 11/10/18 at 19:30 Potassium Chloride/Sodium Chloride 1,000 ml @ 0 mls/hr Q0M IV ; Start 11/10/18 at 19:23 Potassium Chloride/Dextrose/ Sod Cl 1,000 ml @ 0 mls/hr Q0M IV ; Start 11/10/18 at 19:23 Potassium Chloride/Sodium Chloride 1,000 ml @ 0 mls/hr Q0M IV Last administered on 11/11/18at 03:09; Admin Dose 100 MLS/HR; Start 11/10/18 at 19:23 Potassium Chloride/Dextrose/ Sod Cl 1,000 ml @ 0 mls/hr Q0M IV Last administered on 11/11/18at 03:08; Admin Dose 150 MLS/HR; Start 11/10/18 at 19:23 Sodium Chloride 1,000 ml @ 0 mls/hr Q0M IV Last administered on 11/10/18at 20:00; Admin Dose 250 MLS/HR; Start 11/10/18 at 19:23 Dextrose/Sodium Chloride 1,000 ml @ 0 mls/hr Q0M IV ; Start 11/10/18 at 19:23 Insulin Human Regular 100 unit/ Sodium Chloride 101 ml @ 7.07 mls/hr DKA PROTOCOL IV ; Start 11/10/18 at 19:30 Baclofen (Lioresal) 5 mg TID PO ; Start 11/10/18 at 21:00 Calcium Carbonate (Tums Ex) 300 mg Q2H PRN PO GASTROINTESTINAL UPSET; Start 11/10/18 at 19:30; Status Hold Clonidine (Catapres) 0.4 mg BID PO ; Start 11/10/18 at 21:00 Erythromycin (Erythromycin) 250 mg TID PO ; Start 11/10/18 at 21:00 Hydralazine HCl (Apresoline) 100 mg TID PO ; Start 11/10/18 at 21:00 Hyoscyamine (Levsin (Sl)) 0.125 mg Q8 PRN PO NAUSEA; Start 11/10/18 at 19:30 Labetalol HCl (Normodyne) 1,200 mg BID PO ; Start 11/10/18 at 21:00 Losartan Potassium (Cozaar) 100 mg DAILY PO ; Start 11/11/18 at 09:00 Eye Lubricant (Artificial Tears Oph) 2 drop Q6H PRN BOTH EYES DRY EYES; Start 11/10/18 at 19:30 Spironolactone (Aldactone) 25 mg BID PO ; Start 11/10/18 at 21:00 Sucralfate (Carafate) 1 gm QID PO ; Start 11/10/18 at 21:00 Ondansetron HCl 8 mg/Sodium Chloride 54 ml @ 216 mls/hr Q6H PRN IV NAUSEA AND/OR VOMITING; Start 11/10/18 at 20:00 Coded Allergies: amlodipine (Verified Allergy, Intermediate, swelling of lips, 11/10/18) nifedipine (Verified Allergy, Intermediate, 11/10/18) adhesive tape (Verified Allergy, Mild, 11/10/18) benazepril (Verified Allergy, Mild, 11/10/18) ketorolac (Verified Allergy, Mild, 11/10/18) latex (Verified Allergy, Mild, 11/10/18) metoclopramide (Verified Allergy, Mild, 11/10/18) morphine (Verified Allergy, Mild, 11/10/18) tramadol (Verified Allergy, Mild, 11/10/18) clindamycin (Verified Allergy, Unknown, 11/10/18) Past Surgical History Past Surgical Hx: other (See HPI) Family History Significant Family History: no pertinent family hx Social History Alcohol Use: none Smoking Status: Never smoker Drug Use: none Exam/Review of Systems Vital Signs Vitals Vital Signs Date Temp Pulse Resp B/P (MAP) Pulse Ox O2 O2 Flow FiO2 Time Delivery Rate 11/11/18 84 18 157/93 95 Room Air 01:17 (114) 11/10/18 97.4 22:10 Exam Constitutional: other (No acute distress) Head: normocephalic, atraumatic Eyes: EOMI, PERRL Respiratory: clear to auscultation, normal air movement Cardiovascular: regular rate and rhythm, nl pulses Gastrointestinal: soft, non-tender Extremities: normal pulses GUZMAN ORR MD November 11, 2018 05:15
[2018-11-11] MEDS ORDERED: ONDANSETRON 4 MG INJ IV STA (05:34)
[2018-11-11] MEDS ORDERED: ONDANSETRON 4 MG INJ ONE (05:38)
[2018-11-11] MEDS ORDERED: FAMOTIDINE 20 MG INJ IV SCH (06:00)
[2018-11-11] MEDS: SPIRONOLACTONE 50 MG TAB PO SCH ×3 (06:57→21:11)
[2018-11-11] MEDS: PANTOPRAZOLE (EC) 40 MG TAB PO SCH ×2 (07:03→17:45)
[2018-11-11] MEDS: SEVELAMER CARBONATE 800 MG TABLET PO SCH ×3 (07:35→17:46)
--- NOTE | 2018-11-11 08:03 | PN ---
DATE: 11/11/2018 SUBJECTIVE: The patient was recently discharged and was readmitted last night. The patient was note d to be in diabetic ketoacidosis, initiating diabetic ketoacidosis protocol and admitted to intensive care unit. The patient had glucose levels greater than 400. The patient currently is lethargic and complained about pain. The patient's last hemodialysis was 2 days ago. The patient denies any hemo ptysis, hematemesis or hematochezia. OBJECTIVE: VITAL SIGNS: Blood pressure is 178/166, respirations 16, pulse 82, temperature 98.7. HEENT: Head is normocephalic. NECK: Supple. HEART: Regular rate. LUNGS: Show diminished breath sounds at the base. ABDOMEN: Soft, nontender to palpation without rebound or guarding. EXTREMITIES: Negative for clubbing, cyanosis, no edema. The patient's right leg is in a soft cast, clean, dry, and intact. DERMATOLOGIC: No rashes. MUSCULOSKELETAL: No joint effusion. NEUROLOGIC: No change in exam. MEDICATIONS: The patient's medications have been reviewed. LABORATORY DATA: Reviewed. ASSESSMENT AND PLAN: 1. End-stage renal disease. Plan is for hemodialysis today. We will dialyze for 3 hours 2k bath, c alcium 2.5. 2. Anemia. Continue to monitor hemoglobin and hematocrit levels. Continue Epogen. 3. Mineral bone disorder. Monitor calcium and phosphorus levels. Continue phosphate binders. 4. Hypertension. Etiology is multifactorial secondary to end-stage renal disease, endothelial dysfu nction, increased intravascular volume. Recommendation is to continue current blood pressure regimen . We will ultrafiltrate with hemodialysis. We would recommend to discontinue IV hydration. Continu e pain control. 5. Diabetes, continue insulin drip. 6. Right tibial fracture. Continue pain control. 7. Chronic pain and anxiety disorder. Continue medical management. Dictated By: JUJU MARTINEZ DO NR/NTS Conf#: [id number] DID#: [id number] CC: NAYAN WILLIS; AYLEEN HOWARD MD;*EndCC*
[2018-11-11] MEDS: ERYTHROMYCIN BASE (DR) 250 MG CAP PO SCH ×3 (09:00→23:04)
[2018-11-11] MEDS: BACLOFEN 10 MG TAB PO SCH ×3 (09:37→21:10)
[2018-11-11] MEDS: SUCRALFATE 1 GM TAB PO SCH ×4 (09:38→21:09)
[2018-11-11] MEDS: MULTIVIT/CA CARB/B CMPLX/FA TAB PO SCH (09:38)
[2018-11-11] MEDS: LOSARTAN 50 MG TAB PO SCH (09:38)
[2018-11-11] MEDS: AMPICILLIN/SULB 1.5GM/NS (PMX) 50 ML IVPB SCH ×2 (09:38→21:09)
--- NOTE | 2018-11-11 09:40 | PN ---
Date/Time of Note Date/Time of Note DATE: 11/11/18 TIME: 09:39 Assessment/Plan VTE Prophylaxis SCD applied (from Nsg): Yes Pharmacological prophylaxis: heparin Lines/Catheters IV Catheter Type (from Nrsg): Saline Lock Assessment/Plan Assessment/Plan 1. Mild diabetic ketoacidosis - Gap closed and will transition to Lantus - start diabetic diet - Diabetic education consultation appreciated 2. DM type 1 - noncompliant - was seen by Endocrinology during last admission and will continue on same regime. If still remains uncontrolled, will reconsult 3. Hypertensive urgency - improving - continue home medications - HD today 4. ESRD on HD - Nephrology consulted for HD management 5. Recent right tibia/fibula fracture - conservative management 6. Bilateral periorbital swelling - appears to be associated with edema. will continue monitoring for improvement following HD 7. Disposition - [facility] for transfer out of ICU once off Insulin drip Result Diagram: 11/11/18 0523 11/11/18 0734 Results 24hrs Laboratory Tests Test 11/10/18 14:22 11/10/18 15:41 11/10/18 16:38 11/10/18 17:35 Blood Gas Blood venous Specimen Source Arterial Blood 11/10/2018 3:50: Date Drawn 36 PM Arterial Blood OTHER Gas Puncture Site Maicol Test N/A Venous Blood pH 7.170 *L Venous Blood 24.9 L pCO2 (Temp Corrected) Venous Blood pO2 58.9 H (Temp Corrected) Venous Blood 8.9 L HCO3 Venous Blood 81.5 H Oxygen Saturation Venous Blood -18.0 L Base Excess Venous Blood 9.6 Total Hemoglobin Venous Blood 81.1 Oxyhemoglobin Venous Blood 0.2 Methemoglobin Carboxyhemoglobi 0.3 n Blood Gas 37.0 Temperature Blood Gas ROOM AIR Modality FiO2 21.0 Blood Gas L BOWEN SERRATO Critical Value Read Back Blood Gas T [facility] Notified Whom Blood Gas 11/10/2018 3:59: Notified Time 30 PM White Blood 8.3 # Count Red Blood Count 2.81 L Hemoglobin 8.4 L Hematocrit 28.7 L Mean Corpuscular 102.1 H Volume Mean Corpuscular 29.9 Hemoglobin Mean Corpuscular 29.3 L Hemoglobin Isabel nt Red Cell 18.5 H Distribution Width Platelet Count 223 Mean Platelet 10.8 H Volume Immature 0.500 H Granulocytes % Neutrophils % 86.0 H Lymphocytes % 3.1 L Monocytes % 8.2 Eosinophils % 1.4 Basophils % 0.8 Nucleated Red 0.0 Blood Cells % Immature 0.040 H Granulocytes # Neutrophils # 7.1 Lymphocytes # 0.3 L Monocytes # 0.7 Eosinophils # 0.1 Basophils # 0.1 Nucleated Red 0.0 Blood Cells # Sodium Level 135 Potassium Level 6.3 *H Chloride Level 98 Carbon Dioxide 8 *L Level Anion Gap 29 H Blood Urea 35 H Nitrogen Creatinine 8.69 H Est Glomerular 5 L Filtrat Rate mL/min Glucose Level 779 *H Hemoglobin A1c 7.1 H Calcium Level 9.3 Phosphorus Level 4.8 Magnesium Level 2.4 Troponin I < 0.012 Bedside Glucose > 595 *H > 595 *H Test 11/10/18 19:28 11/10/18 19:40 11/10/18 20:12 11/10/18 21:00 Sodium Level 137 137 Potassium Level 5.2 H 5.4 H Chloride Level 99 100 Carbon Dioxide 9 *L 11 L Level Anion Gap 29 H 26 H Blood Urea 36 H 36 H Nitrogen Creatinine 8.55 H 8.67 H Est Glomerular 6 L 5 L Filtrat Rate mL/min Glucose Level 728 *H 721 *H Calcium Level 9.2 9.2 Phosphorus Level 4.7 4.8 Magnesium Level 2.4 2.4 Bedside Glucose > 595 *H Free Thyroxine 1.12 Blood Gas Blood venous Specimen Source Arterial Blood 11/10/2018 8:00: Date Drawn 37 PM Arterial Blood VENOUS LINE Gas Puncture Site Maicol Test N/A Venous Blood pH 7.209 L Venous Blood 30.0 L pCO2 (Temp Corrected) Venous Blood pO2 52.0 H (Temp Corrected) Venous Blood 11.7 L HCO3 Venous Blood 78.2 H Oxygen Saturation Venous Blood -14.9 L Base Excess Venous Blood 9.6 Total Hemoglobin Venous Blood 77.7 Oxyhemoglobin Venous Blood 0.3 Methemoglobin Carboxyhemoglobi 0.3 n Blood Gas 37.0 Temperature Blood Gas ROOM AIR Modality FiO2 21.0 Blood Gas UP Notified Whom Blood Gas 11/10/2018 8:15: Notified Time 02 PM Test 11/10/18 21:25 11/10/18 23:28 11/11/18 00:01 11/11/18 00:15 Bedside Glucose > 595 *H 461 *H Sodium Level 139 Potassium Level 4.2 Chloride Level 102 Carbon Dioxide 15 L Level Anion Gap 22 H Blood Urea 38 H Nitrogen Creatinine 7.35 H Est Glomerular 7 L Filtrat Rate mL/min Glucose Level 463 #*H Calcium Level 8.9 Phosphorus Level 3.9 Magnesium Level 2.2 Blood Gas Blood venous Specimen Source Arterial Blood 11/11/2018 12:45 Date Drawn :30 AM Arterial Blood VENOUS LINE Gas Puncture Site Maicol Test N/A Venous Blood pH 7.274 L Venous Blood 40.6 pCO2 (Temp Corrected) Venous Blood pO2 42.4 H (Temp Corrected) Venous Blood 18.4 L HCO3 Venous Blood 71.1 Oxygen Saturation Venous Blood -7.9 L Base Excess Venous Blood 9.1 Total Hemoglobin Venous Blood 70.4 Oxyhemoglobin Venous Blood 0.4 Methemoglobin Carboxyhemoglobi 0.6 n Blood Gas 37.0 Temperature Blood Gas ROOM AIR Modality FiO2 100.0 Blood Gas Notified Whom Blood Gas 11/11/2018 12:58 Notified Time :16 AM Test 11/11/18 00:32 11/11/18 01:24 11/11/18 02:34 11/11/18 03:39 POC Venous 2.2 *H Lactate Bedside Glucose 374 H 278 H 242 H Test 11/11/18 04:15 11/11/18 05:21 11/11/18 05:23 11/11/18 06:35 Blood Gas Blood venous Specimen Source Arterial Blood 11/11/2018 4:10: Date Drawn 08 AM Arterial Blood A-Line Gas Puncture Site Maicol Test N/A Venous Blood pH 7.341 Venous Blood 44.4 pCO2 (Temp Corrected) Venous Blood pO2 39.9 H (Temp Corrected) Venous Blood 23.5 HCO3 Venous Blood 71.7 Oxygen Saturation Venous Blood -2.2 Base Excess Venous Blood 9.0 Total Hemoglobin Venous Blood 70.9 Oxyhemoglobin Venous Blood 0.4 Methemoglobin Carboxyhemoglobi 0.7 n Blood Gas 37.0 Temperature Blood Gas Actual 22 Respiration Rate Blood Gas ROOM AIR Modality FiO2 21.0 Blood Gas GHISLAINE Britt MD Critical Value Read Back Blood Gas KB Notified Whom Blood Gas 11/11/2018 4:18: Notified Time 04 AM Bedside Glucose 177 197 White Blood 7.2 Count Red Blood Count 2.59 L Hemoglobin 7.8 L Hematocrit 24.1 L Mean Corpuscular 93.1 Volume Mean Corpuscular 30.1 Hemoglobin Mean Corpuscular 32.4 Hemoglobin Isabel nt Red Cell 17.2 H Distribution Width Platelet Count 178 # Mean Platelet 9.8 Volume Immature 0.600 H Granulocytes % Neutrophils % 81.1 H Lymphocytes % 4.4 L Monocytes % 11.2 H Eosinophils % 1.7 Basophils % 1.0 Nucleated Red 0.0 Blood Cells % Immature 0.040 H Granulocytes # Neutrophils # 5.9 Lymphocytes # 0.3 L Monocytes # 0.8 Eosinophils # 0.1 Basophils # 0.1 Nucleated Red 0.0 Blood Cells # Sodium Level 141 Potassium Level 4.4 Chloride Level 106 Carbon Dioxide 21 Level Anion Gap 14 #H Blood Urea 39 H Nitrogen Creatinine 7.77 H Est Glomerular 6 L Filtrat Rate mL/min Glucose Level 197 # Hemoglobin A1c 7.2 H Calcium Level 9.0 Phosphorus Level 3.2 Magnesium Level 2.2 Triglycerides 62 Level Cholesterol 106 Level LDL Cholesterol, 48 Calculated HDL Cholesterol 46 Cholesterol/HDL 2.3 Ratio Thyroid 5.700 H Stimulating Hormone (TSH) Test 11/11/18 07:34 11/11/18 07:44 11/11/18 08:32 11/11/18 09:32 Sodium Level 140 Potassium Level 4.4 Chloride Level 105 Carbon Dioxide 22 Level Anion Gap 13 Blood Urea 39 H Nitrogen Creatinine 7.97 H Est Glomerular 6 L Filtrat Rate mL/min Glucose Level 206 Bedside Glucose 199 193 178 Calcium Level 8.9 Phosphorus Level 3.2 Magnesium Level 2.1 Lactic Acid 2.0 Level Subjective 24 Hr Interval Summary Free Text/Dictation Patient is complaining of pain in lower back area. Denies any nausea or vomiting. Exam/Review of Systems Exam Vitals Vital Signs Date Temp Pulse Resp B/P (MAP) Pulse Ox O2 O2 Flow FiO2 Time Delivery Rate 11/11/18 81 09:19 11/11/18 98.7 16 178/166 100 Room Air 07:00 (170) Exam General: Patient is laying in bed and answers questions appropriately Mentation: Patient is alert and oriented 4, Head: Normocephalic atraumatic Neck: Supple, nontender, midline Respiratory: Clear to auscultation bilaterally. no wheezing or rhonchi Cardiovascular: regular rate and rhythm, no obvious murmurs Gastrointestinal: soft, nontender to palpation, nondistended, no rebound or guarding Ext: Moves all extremities spontaneously Skin: No new skin lesions Results Results 24hrs Laboratory Tests Test 11/10/18 14:22 11/10/18 15:41 11/10/18 16:38 11/10/18 17:35 Blood Gas Blood venous Specimen Source Arterial Blood 11/10/2018 3:50: Date Drawn 36 PM Arterial Blood OTHER Gas Puncture Site Ma[place] Test N/A Venous Blood pH 7.170 *L Venous Blood 24.9 L pCO2 (Temp Corrected) Venous Blood pO2 58.9 H (Temp Corrected) Venous Blood 8.9 L HCO3 Venous Blood 81.5 H Oxygen Saturation Venous Blood -18.0 L Base Excess Venous Blood 9.6 Total Hemoglobin Venous Blood 81.1 Oxyhemoglobin Venous Blood 0.2 Methemoglobin Carboxyhemoglobi 0.3 n Blood Gas 37.0 Temperature Blood Gas ROOM AIR Modality FiO2 21.0 Blood Gas L BOWEN SERRATO Critical Value Read Back Blood Gas T [facility] Notified Whom Blood Gas 11/10/2018 3:59: Notified Time 30 PM White Blood 8.3 # Count Red Blood Count 2.81 L Hemoglobin 8.4 L Hematocrit 28.7 L Mean Corpuscular 102.1 H Volume Mean Corpuscular 29.9 Hemoglobin Mean Corpuscular 29.3 L Hemoglobin Isabel nt Red Cell 18.5 H Distribution Width Platelet Count 223 Mean Platelet 10.8 H Volume Immature 0.500 H Granulocytes % Neutrophils % 86.0 H Lymphocytes % 3.1 L Monocytes % 8.2 Eosinophils % 1.4 Basophils % 0.8 Nucleated Red 0.0 Blood Cells % Immature 0.040 H Granulocytes # Neutrophils # 7.1 Lymphocytes # 0.3 L Monocytes # 0.7 Eosinophils # 0.1 Basophils # 0.1 Nucleated Red 0.0 Blood Cells # Sodium Level 135 Potassium Level 6.3 *H Chloride Level 98 Carbon Dioxide 8 *L Level Anion Gap 29 H Blood Urea 35 H Nitrogen Creatinine 8.69 H Est Glomerular 5 L Filtrat Rate mL/min Glucose Level 779 *H Hemoglobin A1c 7.1 H Calcium Level 9.3 Phosphorus Level 4.8 Magnesium Level 2.4 Troponin I < 0.012 Bedside Glucose > 595 *H > 595 *H Test 11/10/18 19:28 11/10/18 19:40 11/10/18 20:12 11/10/18 21:00 Sodium Level 137 137 Potassium Level 5.2 H 5.4 H Chloride Level 99 100 Carbon Dioxide 9 *L 11 L Level Anion Gap 29 H 26 H Blood Urea 36 H 36 H Nitrogen Creatinine 8.55 H 8.67 H Est Glomerular 6 L 5 L Filtrat Rate mL/min Glucose Level 728 *H 721 *H Calcium Level 9.2 9.2 Phosphorus Level 4.7 4.8 Magnesium Level 2.4 2.4 Bedside Glucose > 595 *H Free Thyroxine 1.12 Blood Gas Blood venous Specimen Source Arterial Blood 11/10/2018 8:00: Date Drawn 37 PM Arterial Blood VENOUS LINE Gas Puncture Site Maicol Test N/A Venous Blood pH 7.209 L Venous Blood 30.0 L pCO2 (Temp Corrected) Venous Blood pO2 52.0 H (Temp Corrected) Venous Blood 11.7 L HCO3 Venous Blood 78.2 H Oxygen Saturation Venous Blood -14.9 L Base Excess Venous Blood 9.6 Total Hemoglobin Venous Blood 77.7 Oxyhemoglobin Venous Blood 0.3 Methemoglobin Carboxyhemoglobi 0.3 n Blood Gas 37.0 Temperature Blood Gas ROOM AIR Modality FiO2 21.0 Blood Gas Notified Whom Blood Gas 11/10/2018 8:15: Notified Time 02 PM Test 11/10/18 21:25 11/10/18 23:28 11/11/18 00:01 11/11/18 00:15 Bedside Glucose > 595 *H 461 *H Sodium Level 139 Potassium Level 4.2 Chloride Level 102 Carbon Dioxide 15 L Level Anion Gap 22 H Blood Urea 38 H Nitrogen Creatinine 7.35 H Est Glomerular 7 L Filtrat Rate mL/min Glucose Level 463 #*H Calcium Level 8.9 Phosphorus Level 3.9 Magnesium Level 2.2 Blood Gas Blood venous Specimen Source Arterial Blood 11/11/2018 12:45 Date Drawn :30 AM Arterial Blood VENOUS LINE Gas Puncture Site Maicol Test N/A Venous Blood pH 7.274 L Venous Blood 40.6 pCO2 (Temp Corrected) Venous Blood pO2 42.4 H (Temp Corrected) Venous Blood 18.4 L HCO3 Venous Blood 71.1 Oxygen Saturation Venous Blood -7.9 L Base Excess Venous Blood 9.1 Total Hemoglobin Venous Blood 70.4 Oxyhemoglobin Venous Blood 0.4 Methemoglobin Carboxyhemoglobi 0.6 n Blood Gas 37.0 Temperature Blood Gas ROOM AIR Modality FiO2 100.0 Blood Gas Notified Whom Blood Gas 11/11/2018 12:58 Notified Time :16 AM Test 11/11/18 00:32 11/11/18 01:24 11/11/18 02:34 11/11/18 03:39 POC Venous 2.2 *H Lactate Bedside Glucose 374 H 278 H 242 H Test 11/11/18 04:15 11/11/18 05:21 11/11/18 05:23 11/11/18 06:35 Blood Gas Blood venous Specimen Source Arterial Blood 11/11/2018 4:10: Date Drawn 08 AM Arterial Blood A-Line Gas Puncture Site Maicol Test N/A Venous Blood pH 7.341 Venous Blood 44.4 pCO2 (Temp Corrected) Venous Blood pO2 39.9 H (Temp Corrected) Venous Blood 23.5 HCO3 Venous Blood 71.7 Oxygen Saturation Venous Blood -2.2 Base Excess Venous Blood 9.0 Total Hemoglobin Venous Blood 70.9 Oxyhemoglobin Venous Blood 0.4 Methemoglobin Carboxyhemoglobi 0.7 n Blood Gas 37.0 Temperature Blood Gas Actual 22 Respiration Rate Blood Gas ROOM AIR Modality FiO2 21.0 Blood Gas GHISLAINE Britt MD Critical Value Read Back Blood Gas KB Notified Whom Blood Gas 11/11/2018 4:18: Notified Time 04 AM Bedside Glucose 177 197 White Blood 7.2 Count Red Blood Count 2.59 L Hemoglobin 7.8 L Hematocrit 24.1 L Mean Corpuscular 93.1 Volume Mean Corpuscular 30.1 Hemoglobin Mean Corpuscular 32.4 Hemoglobin Isabel nt Red Cell 17.2 H Distribution Width Platelet Count 178 # Mean Platelet 9.8 Volume Immature 0.600 H Granulocytes % Neutrophils % 81.1 H Lymphocytes % 4.4 L Monocytes % 11.2 H Eosinophils % 1.7 Basophils % 1.0 Nucleated Red 0.0 Blood Cells % Immature 0.040 H Granulocytes # Neutrophils # 5.9 Lymphocytes # 0.3 L Monocytes # 0.8 Eosinophils # 0.1 Basophils # 0.1 Nucleated Red 0.0 Blood Cells # Sodium Level 141 Potassium Level 4.4 Chloride Level 106 Carbon Dioxide 21 Level Anion Gap 14 #H Blood Urea 39 H Nitrogen Creatinine 7.77 H Est Glomerular 6 L Filtrat Rate mL/min Glucose Level 197 # Hemoglobin A1c 7.2 H Calcium Level 9.0 Phosphorus Level 3.2 Magnesium Level 2.2 Triglycerides 62 Level Cholesterol 106 Level LDL Cholesterol, 48 Calculated HDL Cholesterol 46 Cholesterol/HDL 2.3 Ratio Thyroid 5.700 H Stimulating Hormone (TSH) Test 11/11/18 07:34 11/11/18 07:44 11/11/18 08:32 11/11/18 09:32 Sodium Level 140 Potassium Level 4.4 Chloride Level 105 Carbon Dioxide 22 Level Anion Gap 13 Blood Urea 39 H Nitrogen Creatinine 7.97 H Est Glomerular 6 L Filtrat Rate mL/min Glucose Level 206 Bedside Glucose 199 193 178 Calcium Level 8.9 Phosphorus Level 3.2 Magnesium Level 2.1 Lactic Acid 2.0 Level Medications Medication Current Medications Insulin Human Regular 100 unit/ Sodium Chloride 101 ml @ 7.07 mls/hr ER DKA PROTOCOL IV Last administered on 11/10/18at 19:56; Admin Dose 7.07 MLS/HR; Start 11/10/18 at 16:30 Miscellaneous Information (* Miscellaneous Pharmacy Order) HYPOGLYCEMIA TREATMENT HYPOGLYCEM PROTOCOL PRN XX .HYPOGLYCEMIA PROTOCOL; Start 11/10/18 at 16:30 Dextrose (D50w Syringe) 50 ml Q15M PRN IV .DECREASED GLUCOSE; Start 11/10/18 at 16:30 Dextrose (D50w Syringe) 25 ml Q15M PRN IV .DECREASED GLUCOSE; Start 11/10/18 at 16:30 IV Flush (NS 3 ml) 3 ml PER PROTOCOL IV ; Start 11/10/18 at 19:30 Acetaminophen (Tylenol Tab) 650 mg Q6H PRN PO .PAIN 1-3 OR TEMP; Start 11/10/18 at 19:30 Acetaminophen/ Hydrocodone Bitart ([place] (5/325)) 1 tab Q6H PRN PO .MOD PAIN 4- 6; Start 11/10/18 at 19:30 Docusate Sodium (Colace) 100 mg Q12H PRN PO .CONSTIPATION; Start 11/10/18 at 19:30 Magnesium Hydroxide (Milk Of Mag) 30 ml DAILY PRN PO .CONSTIPATION; Start 11/10/18 at 19:30 Lorazepam (Ativan) 0.5 mg Q6H PRN IV ANXIETY Last administered on 11/10/18at 20:21; Admin Dose 0.5 MG; Start 11/10/18 at 19:30 Albuterol/ Ipratropium (Duoneb) 3 ml Q4H RESP THERAPY PRN HHN SHORTNESS OF BREATH; Start 11/10/18 at 19:30 Hydralazine HCl (Apresoline) 10 mg Q4H PRN IV ELEVATED BLOOD PRESSURE; Start 11/10/18 at 19:30 Nitroglycerin (Nitroglycerin (Sl Tab) 0.4 Mg) 1 tab Q5M PRN SL ANGINA; Start 11/10/18 at 19:30 Dextrose (D50w Syringe) 50 ml Q15M PRN IV For BS 50 or less; Start 11/10/18 at 19:30 Dextrose (D50w Syringe) 25 ml Q15M PRN IV BS between 50-70; Start 11/10/18 at 19:30 Diagnostic Test (Pha) (Accu-Chek) 1 ea Q1H XX Last administered on 11/11/18at 08:37; Admin Dose 1 EA; Start 11/10/18 at 19:30 Miscellaneous Information (* Miscellaneous Pharmacy Order) HYPOGLYCEMIA KATIA TMENT HYPOGLYCEM PROTOCOL PRN XX Hypoglycemia (BS < 70); Start 11/10/18 at 19:30 Potassium Chloride/Sodium Chloride 1,000 ml @ 0 mls/hr Q0M IV ; Start 11/10/18 at 19:23 Potassium Chloride/Dextrose/ Sod Cl 1,000 ml @ 0 mls/hr Q0M IV ; Start 11/10/18 at 19:23 Potassium Chloride/Sodium Chloride 1,000 ml @ 0 mls/hr Q0M IV Last administered on 11/11/18at 03:09; Admin Dose 100 MLS/HR; Start 11/10/18 at 19:23 Potassium Chloride/Dextrose/ Sod Cl 1,000 ml @ 0 mls/hr Q0M IV Last administered on 11/11/18at 08:29; Admin Dose 250 MLS/HR; Start 11/10/18 at 19:23 Sodium Chloride 1,000 ml @ 0 mls/hr Q0M IV Last administered on 11/10/18at 20:00; Admin Dose 250 MLS/HR; Start 11/10/18 at 19:23 Dextrose/Sodium Chloride 1,000 ml @ 0 mls/hr Q0M IV ; Start 11/10/18 at 19:23 Insulin Human Regular 100 unit/ Sodium Chloride 101 ml @ 7.07 mls/hr DKA PROTOCOL IV ; Start 5/12/19 at 19:30 Baclofen (Lioresal) 5 mg TID PO ; Start 11/10/18 at 21:00 Calcium Carbonate (Tums Ex) 300 mg Q2H PRN PO GASTROINTESTINAL UPSET; Start 11/10/18 at 19:30; Status Hold Clonidine (Catapres) 0.4 mg BID PO ; Start 11/10/18 at 21:00 Erythromycin (Erythromycin) 250 mg TID PO ; Start 11/10/18 at 21:00 Hydralazine HCl (Apresoline) 100 mg TID PO ; Start 11/10/18 at 21:00 Hyoscyamine (Levsin (Sl)) 0.125 mg Q8 PRN PO NAUSEA; Start 11/10/18 at 19:30 Labetalol HCl (Normodyne) 1,200 mg BID PO ; Start 11/10/18 at 21:00 Losartan Potassium (Cozaar) 100 mg DAILY PO ; Start 11/11/18 at 09:00 Eye Lubricant (Artificial Tears Oph) 2 drop Q6H PRN BOTH EYES DRY EYES; Start 11/10/18 at 19:30 Spironolactone (Aldactone) 25 mg BID PO ; Start 11/10/18 at 21:00 Sucralfate (Carafate) 1 gm QID PO ; Start 11/10/18 at 21:00 Ondansetron HCl 8 mg/Sodium Chloride 54 ml @ 216 mls/hr Q6H PRN IV NAUSEA AND/OR VOMITING; Start 11/10/18 at 20:00 Pantoprazole (Protonix Tab) 40 mg BID@0600,1800 PO ; Start 11/11/18 at 06:00 Ampicillin Sodium/ Sulbactam Sodium 50 ml @ 100 mls/hr Q12 IVPB ; Start 11/11/18 at 09:00 Multivit/Ca Carb/ B Cmplx/FA/Prenat (E[place]-Luis) 1 tab DAILY PO ; Start 11/11/18 at 09:00 Sevelamer Carbonate (Renvela) 400 mg WITH MEALS PO ; Start 11/11/18 at 07:35 Hydromorphone HCl (Dilaudid) 0.5 mg Q4H PRN IV SEVERE PAIN LEVEL 7-10; Start 11/11/18 at 10:00; Status MARLEN DARLING MD November 11, 2018 09:40
[2018-11-11] MEDS: LABETALOL 200 MG TAB PO SCH ×2 (10:01→21:10)
[2018-11-11] MEDS ORDERED: DIPHENHYDRAMINE 50 MG INJ IV ONE ×2 (12:00)
[2018-11-11] MEDS ORDERED: DEXTROSE 50% 50 ML SYRINGE IV PRN ×2 (13:00)
[2018-11-11] MEDS: HYDROmorphONE 0.5 MG/0.5 ML SYG IV PRN ×2 (14:07→21:53)
[2018-11-11] MEDS ORDERED: INSULIN HUMAN REGULAR 100 UNIT in SOD CHLORIDE 0.9% 99 ML IV SCH (15:00)
[2018-11-11] MEDS: INSULIN GLARGINE [LANTus] (100 UNITS/ML) SYG SC SCH ×2 (15:21→23:35)
[2018-11-11] MEDS: HEPARIN 1000 UNITS/ML 10 ML INJ CATHETER SCH (16:13)
[2018-11-11] MEDS: INSULIN ASPART [NOVOLOG] 3 ML PEN SC SCH (17:50)
--- NOTE | 2018-11-11 19:14 | CONS ---
Assessment/Plan Assessment/Plan Problems: (1) Diabetic ketoacidosis Status: Acute Comment: Physiologically if the patient who has no ability to obtain insulin goes off of insulin they will go into diabetic ketoacidosis within 48 hours. This patient reports she been taking her insulin but went into diabetic ketoacidosis within 48 hours of being removed from our administration of her insulin. Her DKA is coming under control with IV insulin drip. I will have our CDE meet with her to make sure to go over her technique and make sure she is not trying to inject herself using pens that are empty and she would hear the clicks but not deliver any insulin. Qualifiers: Qualified Codes: E13.10 - Other specified diabetes mellitus with ketoacidosis without coma (2) Diabetes mellitus type 1 with complications Onset Date: ~ 10/1996 Status: Chronic Comment: Continue with insulin drip protocol. (3) Diabetic peripheral neuropathy associated with type 1 diabetes mellitus Status: Chronic Comment: Noted. (4) Diabetic retinopathy associated with type 1 diabetes mellitus Status: Chronic Comment: End-stage retinopathy. 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 Qualifiers: Qualified Codes: S82.201D - Unspecified fracture of shaft of right tibia, subsequent encounter for closed fracture with routine healing; S82.401D - Unspecified fracture of shaft of right fibula, subsequent encounter for closed fracture with routine healing Consultation Date/Type/Reason Admit Date/Time November 10, 2018 Date of Consultation: November 11, 2018 Type of Consult Endocrinology Reason for Consultation Diabetes mellitus type I with complications; end-stage renal disease; retinopathy with blindness; autonomic neuropathy with gastroparesis; peripheral neuropathy; right leg impacted tib-fib fracture Requesting Provider: HONG LEOS Date/Time of Note DATE: 11/11/18 TIME: 19:02 Hx of Present Illness 28-year-old woman with diabetes mellitus type 1. She did come in with DKA was treated and was successfully discharged on November 08, 2018. 48 hours later she appeared in our emergency room again with diabetic ketoacidosis. Patient reports that she has been taking her long-acting insulin with the assistance of her mother and another person living in the household. She also reports she can count the clicks on the insulin pen. Constitutional: no complaints Respiratory: no complaints Cardiovascular: no complaints Gastrointestinal: no complaints Genitourinary: no complaints Past Medical History Medical History: diabetes (Type I, with complications of end-stage renal disease-retinopathy with blindness-autonomic neuropathy with gastroparesis- peripheral neuropathy), high cholesterol, hypertension, other (See HPI) Home Meds Active Scripts Hydrocodone/Acetaminophen ([place] 10-325 Tablet) 1 Each Tablet, 1 EACH PO Q6 for 14 Days, TAB Prov:NAYAN WILLIS S. 11/08/18 Insulin Aspart* (Novolog Insulin Pen*) 100 Unit/Ml Soln, 2 UNIT SC WITH MEALS, #1 BOTTLE 3 Refills Prov:NAYAN WILLIS S. 11/08/18 Polyvinyl Alcohol* ([place] Tears*) 1.4% - 15 Ml Drops, 2 DROP BOTH EYES Q6H PRN for DRY EYES, #1 BOTTLE 1 Refill Prov:NAYAN WILLIS S. 11/08/18 Baclofen* (Baclofen*) 10 Mg Tablet, 5 MG PO TID, #60 TAB 1 Refill Prov:NAYAN WILLIS S. 11/08/18 Erythromycin* (Erythromycin* EC) 250 Mg Capsule.dr, 250 MG PO TID, #90 2 Refills Prov:NAYAN WILLIS S. 11/08/18 Pantoprazole* (Pantoprazole*) 40 Mg Tablet.dr, 40 MG PO BID, #60 TAB Prov:VINICIUS YAÑEZ MD 10/29/18 Sucralfate (Carafate) 1 Gm Tablet, 1 GM PO QID, #60 TAB Prov:VINICIUS YAÑEZ MD 10/29/18 Losartan Potassium* (Cozaar*) 50 Mg Tablet, 100 MG PO DAILY, #60 TAB Prov:VINICIUS YAÑEZ MD 10/29/18 Hyoscyamine Sulfate* (Hyoscyamine Sulfate*) 0.125 Mg Tab.subl, 0.125 MG PO Q8 PRN for NAUSEA, #60 TAB Prov:VINICIUS YAÑEZ MD 10/29/18 Hydralazine Hcl* (Hydralazine Hcl*) 50 Mg Tab, 100 MG PO TID, #180 TAB Prov:VINICIUS YAÑEZ MD 10/29/18 Reported Medications Insulin Glargine* (Lantus*) 100 Unit/Ml Soln, 6 UNIT SC BID, #1 VIAL 11/10/18 Loperamide Hcl* (Imodium*) 2 Mg Capsule, 2 MG PO TID PRN for DIARRHEA, CAP MAX 16 mg/day 10/21/18 Insulin Lispro (Humalog) 100 Unit/1 Ml Cartridge, 0 SQ SLIDING SCALE 5-15 U, EA 10/21/18 Lorazepam* (Lorazepam*) 0.5 Mg Tablet, 0.5 MG PO Q6 PRN for AGITATION/ANXIETY, TAB 10/21/18 Calcium Carbonate* (Tums X-Str) 300 Mg Tab.chew, 300 MG PO Q2H PRN for GASTROINTESTINAL UPSET, TAB.CHEW 10/21/18 Clonidine Hcl* (Clonidine Hcl*) 0.3 Mg Tablet, 0.4 MG PO BID, TAB 10/21/18 Spironolactone* (Spironolactone*) 100 Mg Tablet, 25 MG PO BID, TAB 10/21/18 Labetalol Hcl (Normodyne) 200 Mg Tablet, 1200 MG PO BID, TAB 10/21/18 Clonidine Patch (CLONIDINE PATCH) 0.3 Mg/24 Hr Patch, 2 PATCH.WK TD Q7D, #4 PATCH.WK 10/21/18 Discontinued Reported Medications Insulin Glargine* (Lantus*) 100 Unit/Ml Soln, 10 UNIT SC DAILY, #1 VIAL 10/21/18 Hydromorphone Hcl (Dilaudid) 2 Mg Tab, 2 MG PO Q4 PRN for PAIN, TAB 10/21/18 Discontinued Scripts [Insulin Glargine] 100 UNITS/ML SOLN No Conflict Check, 6 UNITS SC Q12, #1 BOTTLE 3 Refills Prov:NAYAN WILLIS 11/08/18 Medications Current Medications IV Flush (NS 3 ml) 3 ml PER PROTOCOL IV ; Start 11/10/18 at 19:30 Acetaminophen (Tylenol Tab) 650 mg Q6H PRN PO .PAIN 1-3 OR TEMP; Start 11/10/18 at 19:30 Acetaminophen/ Hydrocodone Bitart ([place] (5/325)) 1 tab Q6H PRN PO .MOD PAIN 4- 6; Start 11/10/18 at 19:30 Docusate Sodium (Colace) 100 mg Q12H PRN PO .CONSTIPATION; Start 11/10/18 at 19:30 Magnesium Hydroxide (Milk Of Mag) 30 ml DAILY PRN PO .CONSTIPATION; Start 11/10/18 at 19:30 Lorazepam (Ativan) 0.5 mg Q6H PRN IV ANXIETY Last administered on 11/10/18 20:21; Admin Dose 0.5 MG; Start 11/10/18 at 19:30 Albuterol/ Ipratropium (Duoneb) 3 ml Q4H RESP THERAPY PRN HHN SHORTNESS OF BREATH; Start 11/10/18 at 19:30 Hydralazine HCl (Apresoline) 10 mg Q4H PRN IV ELEVATED BLOOD PRESSURE; Start 11/10/18 at 19:30 Nitroglycerin (Nitroglycerin (Sl Tab) 0.4 Mg) 1 tab Q5M PRN SL ANGINA; Start 11/10/18 at 19:30 Sodium Chloride 1,000 ml @ 0 mls/hr Q0M IV Last administered on 11/10/18 20:00; Admin Dose 250 MLS/HR; Start 11/10/18 at 19:23 Baclofen (Lioresal) 5 mg TID PO Last administered on 11/11/18 12:29; Admin Dose 5 MG; Start 11/10/18 at 21:00 Calcium Carbonate (Tums Ex) 300 mg Q2H PRN PO GASTROINTESTINAL UPSET; Start 11/10/18 at 19:30; Status Hold Clonidine (Catapres) 0.4 mg BID PO Last administered on 11/11/18 09:36; Admin Dose 0.4 MG; Start 11/10/18 at 21:00 Erythromycin (Erythromycin) 250 mg TID PO Last administered on 11/11/18 12:29; Admin Dose 250 MG; Start 11/10/18 at 21:00 Hydralazine HCl (Apresoline) 100 mg TID PO Last administered on 11/11/18at 1 3:47; Admin Dose 100 MG; Start 11/10/18 at 21:00 Hyoscyamine (Levsin (Sl)) 0.125 mg Q8 PRN PO NAUSEA Last administered on 11/11/18 10:01; Admin Dose 0.125 MG; Start 11/10/18 at 19:30 Labetalol HCl (Normodyne) 1,200 mg BID PO Last administered on 11/11/18 10:01; Admin Dose 1,200 MG; Start 11/10/18 at 21:00 Losartan Potassium (Cozaar) 100 mg DAILY PO Last administered on 11/11/18 09:38; Admin Dose 100 MG; Start 11/11/18 at 09:00 Eye Lubricant (Artificial Tears Oph) 2 drop Q6H PRN BOTH EYES DRY EYES; Start 11/10/18 at 19:30 Spironolactone (Aldactone) 25 mg BID PO Last administered on 11/11/18 09:38; Admin Dose 25 MG; Start 11/10/18 at 21:00 Sucralfate (Carafate) 1 gm QID PO Last administered on 11/11/18 17:46; Admin Dose 1 GM; Start 11/10/18 at 21:00 Ondansetron HCl 8 mg/Sodium Chloride 54 ml @ 216 mls/hr Q6H PRN IV NAUSEA AND/OR VOMITING; Start 11/10/18 at 20:00 Pantoprazole (Protonix Tab) 40 mg BID@0600,1800 PO Last administered on 11/11/18 17:45; Admin Dose 40 MG; Start 11/11/18 at 06:00 Ampicillin Sodium/ Sulbactam Sodium 50 ml @ 100 mls/hr Q12 IVPB Last administered on 11/11/18 09:38; Admin Dose 100 MLS/HR; Start 11/11/18 at 09:00 Multivit/Ca Carb/ B Cmplx/FA/Prenat ([place]-Luis) 1 tab DAILY PO Last administered on 11/11/18 09:38; Admin Dose 1 TAB; Start 11/11/18 at 09:00 Sevelamer Carbonate (Renvela) 400 mg WITH MEALS PO Last administered on 11/11/18 17:46; Admin Dose 400 MG; Start 11/11/18 at 07:35 Hydromorphone HCl (Dilaudid) 0.5 mg Q4H PRN IV SEVERE PAIN LEVEL 7-10 Last administered on 11/11/18 14:07; Admin Dose 0.5 MG; Start 11/11/18 at 09:30 Heparin Sodium (Porcine) (Heparin (1000 Units/ml)) 3,700 unit AFTER DIALYSIS CATHETER Last administered on 11/11/18at 16:13; Admin Dose 3,700 UNIT; Start 11/11/18 at 12:30 Insulin Human Regular 100 unit/ Sodium Chloride 100 ml @ 0 mls/hr PER PROTOCOL IV ; Start 11/11/18 at 15:00 Miscellaneous Information (* Miscellaneous Pharmacy Order) Treatment of Hypoglycemia: 1.BG 51... Per protocol XX ; Start 11/11/18 at 13:00 Dextrose (D50w Syringe) 25 ml Q15M PRN IV .DECREASED GLUCOSE; Start 11/11/18 at 13:00 Dextrose (D50w Syringe) 50 ml Q15M PRN IV .DECREASED GLUCOSE; Start 11/11/18 at 13:00 Insulin Aspart (Novolog Insulin Pen) 2 unit WITH MEALS SC Last administered on 11/11/18at 17:50; Admin Dose 2 UNIT; Start 11/11/18 at 17:35 Insulin Glargine (Lantus) 6 units BID SC Last administered on 11/11/18at 15:21; Admin Dose 6 UNITS; Start 11/11/18 at 15:00 Diagnostic Test (Pha) (Accu-Chek) 1 ea AC MEALS XX Last administered on 11/11/18at 17:48; Admin Dose 1 EA; Start 11/11/18 at 17:05 Allergies: Coded Allergies: amlodipine (Verified Allergy, Intermediate, swelling of lips, 11/10/18) nifedipine (Verified Allergy, Intermediate, 11/10/18) adhesive tape (Verified Allergy, Mild, 11/10/18) benazepril (Verified Allergy, Mild, 11/10/18) ketorolac (Verified Allergy, Mild, 11/10/18) latex (Verified Allergy, Mild, 11/10/18) metoclopramide (Verified Allergy, Mild, 11/10/18) morphine (Verified Allergy, Mild, 11/10/18) tramadol (Verified Allergy, Mild, 11/10/18) clindamycin (Verified Allergy, Unknown, 11/10/18) Past Surgical History Past Surgical Hx: noncontributory, other (See HPI) Family History Significant Family History: no pertinent family hx Social History Alcohol Use: none Smoking Status: Never smoker Drug Use: none Exam/Review of Systems Exam Vitals Vital Signs Date Temp Pulse Resp B/P (MAP) Pulse Ox O2 O2 Flow FiO2 Time Delivery Rate 11/11/18 77 16 158/59 98 Room Air 16:18 (92) 11/11/18 98.4 16:00 Intake and Output 11/10/18 11/10/18 11/11/18 1515:00 23:00 07:00 IntakeIntake Total 257 ml BalanceBalance 257 ml Constitutional: alert, oriented Neck: supple, non-tender Respiratory: clear to auscultation, normal air movement Cardiovascular: regular rate and rhythm, nl pulses Gastrointestinal: soft, nl liver, spleen, non-tender Results Result Diagram: 11/11/18 0523 11/11/18 1105 Results 24hrs Laboratory Tests Test 11/10/18 19:28 11/10/18 19:40 11/10/18 20:12 11/10/18 21:00 Sodium Level 137 137 Potassium Level 5.2 H 5.4 H Chloride Level 99 100 Carbon Dioxide 9 *L 11 L Level Anion Gap 29 H 26 H Blood Urea 36 H 36 H Nitrogen Creatinine 8.55 H 8.67 H Est Glomerular 6 L 5 L Filtrat Rate mL/min Glucose Level 728 *H 721 *H Calcium Level 9.2 9.2 Phosphorus Level 4.7 4.8 Magnesium Level 2.4 2.4 Bedside Glucose > 595 *H Free Thyroxine 1.12 Blood Gas Blood venous Specimen Source Arterial Blood 11/10/2018 8:00: Date Drawn 37 PM Arterial Blood VENOUS LINE Gas Puncture Site Maicol Test N/A Venous Blood pH 7.209 L Venous Blood 30.0 L pCO2 (Temp Corrected) Venous Blood pO2 52.0 H (Temp Corrected) Venous Blood 11.7 L HCO3 Venous Blood 78.2 H Oxygen Saturation Venous Blood -14.9 L Base Excess Venous Blood 9.6 Total Hemoglobin Venous Blood 77.7 Oxyhemoglobin Venous Blood 0.3 Methemoglobin Carboxyhemoglobi 0.3 n Blood Gas 37.0 Temperature Blood Gas ROOM AIR Modality FiO2 21.0 Blood Gas UP Notified Whom Blood Gas 11/10/2018 8:15: Notified Time 02 PM Test 11/10/18 21:25 11/10/18 23:28 11/11/18 00:01 11/11/18 00:15 Bedside Glucose > 595 *H 461 *H Sodium Level 139 Potassium Level 4.2 Chloride Level 102 Carbon Dioxide 15 L Level Anion Gap 22 H Blood Urea 38 H Nitrogen Creatinine 7.35 H Est Glomerular 7 L Filtrat Rate mL/min Glucose Level 463 #*H Calcium Level 8.9 Phosphorus Level 3.9 Magnesium Level 2.2 Blood Gas Blood venous Specimen Source Arterial Blood 11/11/2018 12:45 Date Drawn :30 AM Arterial Blood VENOUS LINE Gas Puncture Site Maicol Test N/A Venous Blood pH 7.274 L Venous Blood 40.6 pCO2 (Temp Corrected) Venous Blood pO2 42.4 H (Temp Corrected) Venous Blood 18.4 L HCO3 Venous Blood 71.1 Oxygen Saturation Venous Blood -7.9 L Base Excess Venous Blood 9.1 Total Hemoglobin Venous Blood 70.4 Oxyhemoglobin Venous Blood 0.4 Methemoglobin Carboxyhemoglobi 0.6 n Blood Gas 37.0 Temperature Blood Gas ROOM AIR Modality FiO2 100.0 Blood Gas KM Notified Whom Blood Gas 11/11/2018 12:58 Notified Time :16 AM Test 11/11/18 00:32 11/11/18 01:24 11/11/18 02:34 11/11/18 03:39 POC Venous 2.2 *H Lactate Bedside Glucose 374 H 278 H 242 H Test 11/11/18 04:15 11/11/18 05:21 11/11/18 05:23 11/11/18 06:35 Blood Gas Blood venous Specimen Source Arterial Blood 11/11/2018 4:10: Date Drawn 08 AM Arterial Blood A-Line Gas Puncture Site Ma[place] Test N/A Venous Blood pH 7.341 Venous Blood 44.4 pCO2 (Temp Corrected) Venous Blood pO2 39.9 H (Temp Corrected) Venous Blood 23.5 HCO3 Venous Blood 71.7 Oxygen Saturation Venous Blood -2.2 Base Excess Venous Blood 9.0 Total Hemoglobin Venous Blood 70.9 Oxyhemoglobin Venous Blood 0.4 Methemoglobin Carboxyhemoglobi 0.7 n Blood Gas 37.0 Temperature Blood Gas Actual 22 Respiration Rate Blood Gas ROOM AIR Modality FiO2 21.0 Blood Gas GHISLAINE Britt MD Critical Value Read Back Blood Gas KB Notified Whom Blood Gas 11/11/2018 4:18: Notified Time 04 AM Bedside Glucose 177 197 White Blood 7.2 Count Red Blood Count 2.59 L Hemoglobin 7.8 L Hematocrit 24.1 L Mean Corpuscular 93.1 Volume Mean Corpuscular 30.1 Hemoglobin Mean Corpuscular 32.4 Hemoglobin Isabel nt Red Cell 17.2 H Distribution Width Platelet Count 178 # Mean Platelet 9.8 Volume Immature 0.600 H Granulocytes % Neutrophils % 81.1 H Lymphocytes % 4.4 L Monocytes % 11.2 H Eosinophils % 1.7 Basophils % 1.0 Nucleated Red 0.0 Blood Cells % Immature 0.040 H Granulocytes # Neutrophils # 5.9 Lymphocytes # 0.3 L Monocytes # 0.8 Eosinophils # 0.1 Basophils # 0.1 Nucleated Red 0.0 Blood Cells # Sodium Level 141 Potassium Level 4.4 Chloride Level 106 Carbon Dioxide 21 Level Anion Gap 14 #H Blood Urea 39 H Nitrogen Creatinine 7.77 H Est Glomerular 6 L Filtrat Rate mL/min Glucose Level 197 # Hemoglobin A1c 7.2 H Calcium Level 9.0 Phosphorus Level 3.2 Magnesium Level 2.2 Triglycerides 62 Level Cholesterol 106 Level LDL Cholesterol, 48 Calculated HDL Cholesterol 46 Cholesterol/HDL 2.3 Ratio Thyroid 5.700 H Stimulating Hormone (TSH) Test 11/11/18 07:34 11/11/18 07:44 11/11/18 08:32 11/11/18 09:32 Sodium Level 140 Potassium Level 4.4 Chloride Level 105 Carbon Dioxide 22 Level Anion Gap 13 Blood Urea 39 H Nitrogen Creatinine 7.97 H Est Glomerular 6 L Filtrat Rate mL/min Glucose Level 206 Bedside Glucose 199 193 178 Calcium Level 8.9 Phosphorus Level 3.2 Magnesium Level 2.1 Lactic Acid 2.0 Level Test 11/11/18 10:33 11/11/18 11:05 11/11/18 11:25 11/11/18 12:31 Bedside Glucose 142 141 116 Sodium Level 140 Potassium Level 4.3 Chloride Level 107 Carbon Dioxide 22 Level Anion Gap 11 Blood Urea 38 H Nitrogen Creatinine 8.09 H Est Glomerular 6 L Filtrat Rate mL/min Glucose Level 125 # Calcium Level 8.9 Test 11/11/18 13:33 11/11/18 14:06 11/11/18 14:40 11/11/18 15:19 Bedside Glucose 57 L 97 85 107 Test 11/11/18 17:47 Bedside Glucose 206 Medications Medication Current Medications IV Flush (NS 3 ml) 3 ml PER PROTOCOL IV ; Start 11/10/18 at 19:30 Acetaminophen (Tylenol Tab) 650 mg Q6H PRN PO .PAIN 1-3 OR TEMP; Start 11/10/18 at 19:30 Acetaminophen/ Hydrocodone Bitart ([place] (5/325)) 1 tab Q6H PRN PO .MOD PAIN 4- 6; Start 11/10/18 at 19:30 Docusate Sodium (Colace) 100 mg Q12H PRN PO .CONSTIPATION; Start 11/10/18 at 19:30 Magnesium Hydroxide (Milk Of Mag) 30 ml DAILY PRN PO .CONSTIPATION; Start 11/10/18 at 19:30 Lorazepam (Ativan) 0.5 mg Q6H PRN IV ANXIETY Last administered on 11/10/18 20:21; Admin Dose 0.5 MG; Start 11/10/18 at 19:30 Albuterol/ Ipratropium (Duoneb) 3 ml Q4H RESP THERAPY PRN HHN SHORTNESS OF BREATH; Start 11/10/18 at 19:30 Hydralazine HCl (Apresoline) 10 mg Q4H PRN IV ELEVATED BLOOD PRESSURE; Start 11/10/18 at 19:30 Nitroglycerin (Nitroglycerin (Sl Tab) 0.4 Mg) 1 tab Q5M PRN SL ANGINA; Start 11/10/18 at 19:30 Sodium Chloride 1,000 ml @ 0 mls/hr Q0M IV Last administered on 11/10/18 20:00; Admin Dose 250 MLS/HR; Start 11/10/18 at 19:23 Baclofen (Lioresal) 5 mg TID PO Last administered on 11/11/18 12:29; Admin Dose 5 MG; Start 11/10/18 at 21:00 Calcium Carbonate (Tums Ex) 300 mg Q2H PRN PO GASTROINTESTINAL UPSET; Start 11/10/18 at 19:30; Status Hold Clonidine (Catapres) 0.4 mg BID PO Last administered on 11/11/18at 09:36; Admin Dose 0.4 MG; Start 11/10/18 at 21:00 Erythromycin (Erythromycin) 250 mg TID PO Last administered on 11/11/18 12:29; Admin Dose 250 MG; Start 11/10/18 at 21:00 Hydralazine HCl (Apresoline) 100 mg TID PO Last administered on 11/11/18 13:47; Admin Dose 100 MG; Start 11/10/18 at 21:00 Hyoscyamine (Levsin (Sl)) 0.125 mg Q8 PRN PO NAUSEA Last administered on 11/11/18 10:01; Admin Dose 0.125 MG; Start 11/10/18 at 19:30 Labetalol HCl (Normodyne) 1,200 mg BID PO Last administered on 11/11/18 10:01; Admin Dose 1,200 MG; Start 11/10/18 at 21:00 Losartan Potassium (Cozaar) 100 mg DAILY PO Last administered on 11/11/18 09:38; Admin Dose 100 MG; Start 11/11/18 at 09:00 Eye Lubricant (Artificial Tears Oph) 2 drop Q6H PRN BOTH EYES DRY EYES; Start 11/10/18 at 19:30 Spironolactone (Aldactone) 25 mg BID PO Last administered on 11/11/18 09:38; Admin Dose 25 MG; Start 11/10/18 at 21:00 Sucralfate (Carafate) 1 gm QID PO Last administered on 11/11/18 17:46; Admin Dose 1 GM; Start 11/10/18 at 21:00 Ondansetron HCl 8 mg/Sodium Chloride 54 ml @ 216 mls/hr Q6H PRN IV NAUSEA AND/OR VOMITING; Start 11/10/18 at 20:00 Pantoprazole (Protonix Tab) 40 mg BID@0600,1800 PO Last administered on 11/11/18 17:45; Admin Dose 40 MG; Start 11/11/18 at 06:00 Ampicillin Sodium/ Sulbactam Sodium 50 ml @ 100 mls/hr Q12 IVPB Last administered on 11/11/18 09:38; Admin Dose 100 MLS/HR; Start 11/11/18 at 09:00 Multivit/Ca Carb/ B Cmplx/FA/Prenat ([place]-Luis) 1 tab DAILY PO Last administered on 11/11/18 09:38; Admin Dose 1 TAB; Start 11/11/18 at 09:00 Sevelamer Carbonate (Renvela) 400 mg WITH MEALS PO Last administered on 11/11/18 17:46; Admin Dose 400 MG; Start 11/11/18 at 07:35 Hydromorphone HCl (Dilaudid) 0.5 mg Q4H PRN IV SEVERE PAIN LEVEL 7-10 Last administered on 11/11/18 14:07; Admin Dose 0.5 MG; Start 11/11/18 at 09:30 Heparin Sodium (Porcine) (Heparin (1000 Units/ml)) 3,700 unit AFTER DIALYSIS CATHETER Last administered on 11/11/18at 16:13; Admin Dose 3,700 UNIT; Start 11/11/18 at 12:30 Insulin Human Regular 100 unit/ Sodium Chloride 100 ml @ 0 mls/hr PER PROTOCOL IV ; Start 11/11/18 at 15:00 Miscellaneous Information (* Miscellaneous Pharmacy Order) Treatment of Hypoglycemia: 1.BG 51... Per protocol XX ; Start 11/11/18 at 13:00 Dextrose (D50w Syringe) 25 ml Q15M PRN IV .DECREASED GLUCOSE; Start 11/11/18 at 13:00 Dextrose (D50w Syringe) 50 ml Q15M PRN IV .DECREASED GLUCOSE; Start 11/11/18 at 13:00 Insulin Aspart (Novolog Insulin Pen) 2 unit WITH MEALS SC Last administered on 11/11/18at 17:50; Admin Dose 2 UNIT; Start 11/11/18 at 17:35 Insulin Glargine (Lantus) 6 units BID SC Last administered on 11/11/18at 15:21; Admin Dose 6 UNITS; Start 11/11/18 at 15:00 Diagnostic Test (Pha) (Accu-Chek) 1 ea AC MEALS XX Last administered on 11/11/18at 17:48; Admin Dose 1 EA; Start 11/11/18 at 17:05 ADRI BASURTO MD November 11, 2018 19:13
[2018-11-11] MEDS: hydrALAzine 20 MG INJ IV PRN (20:15)
[2018-11-12] VITALS (23 sets, daily range): BP systolic 136–207; BP diastolic 60–103; PULSE 73–85; RESP 18–20
[2018-11-12] MEDS: HYDROmorphONE 0.5 MG/0.5 ML SYG IV PRN ×6 (01:58→21:53)
[2018-11-12] MEDS: hydrALAzine 20 MG INJ IV PRN ×3 (04:31→20:45)
[2018-11-12] MEDS: PANTOPRAZOLE (EC) 40 MG TAB PO SCH ×2 (05:48→18:59)
[2018-11-12] MEDS: ACCU-CHEK XX SCH ×3 (07:42→17:43)
[2018-11-12] MEDS: INSULIN ASPART [NOVOLOG] 3 ML PEN SC SCH ×5 (07:46→20:53)
[2018-11-12] MEDS: SEVELAMER CARBONATE 800 MG TABLET PO SCH ×3 (07:52→17:55)
[2018-11-12] MEDS: INSULIN GLARGINE [LANTus] (100 UNITS/ML) SYG SC SCH ×2 (07:55→21:25)
--- NOTE | 2018-11-12 08:26 | PN ---
DATE: 11/12/2018 SUBJECTIVE: The patient had hemodialysis yesterday, tolerated well, approximately 3 liters removed. Overnight, no other acute events noted. No hemoptysis, hematemesis, or hematochezia. The patient w as noted to be hypotensive despite multiple medications. The patient denies any headaches, any visua l changes. OBJECTIVE: VITAL SIGNS: Blood pressure is 198/82, respirations 18, pulse 82, temperature 98.0. HEENT: Head is normocephalic. NECK: Supple. HEART: Regular rate. LUNGS: Show diminished breath sounds at the base. ABDOMEN: Soft, nontender to palpation without rebound or guarding. EXTREMITIES: Negative for clubbing, cyanosis. Trace edema. DERMATOLOGIC: No rashes. MUSCULOSKELETAL: No joint effusion. NEUROLOGIC: No change in exam. MEDICATIONS: The patient's medications have been reviewed. LABORATORY DATA: Reviewed. ASSESSMENT AND PLAN: 1. End-stage renal disease. The patient had hemodialysis yesterday and tolerated well. Plan is for dialysis again today. 2. Anemia. Continue to monitor hemoglobin and hematocrit levels. Continue Epogen. 3. Mineral bone disorder. Monitor calcium and phosphorus levels. Continue phosphate binders. 4. Hypertension. Etiology is multifactorial secondary to end-stage renal disease and adrenal dysfun ction, increased intravascular volume. We will continue ultrafiltration with dialysis. Anticipate a nother 2 to 3 liters removed today. Continue current blood pressure regimen. Continue pain control. 5. Diabetes. Continue current insulin regimen per endocrinology. 6. Right tibial fracture. Continue pain control. Continue conservative care. 7. Chronic pain and anxiety disorder. Continue current treatment plan per primary team. 8. Periorbital swelling, etiology is secondary to volume overload. Continue ultrafiltration with di alysis. Monitor closely. Dictated By: JUJU MARTINEZ DO NR/NTS Conf#: [id number] DID#: [id number] CC: NAYAN WILLIS; AYLEEN HOWARD MD; MARLEN WEBER MD;*EndCC*
[2018-11-12] MEDS: SPIRONOLACTONE 50 MG TAB PO SCH ×2 (09:04→20:44)
[2018-11-12] MEDS: SUCRALFATE 1 GM TAB PO SCH ×5 (09:04→20:44)
[2018-11-12] MEDS: MULTIVIT/CA CARB/B CMPLX/FA TAB PO SCH (09:05)
[2018-11-12] MEDS: ERYTHROMYCIN BASE (DR) 250 MG CAP PO SCH ×3 (09:05→20:44)
[2018-11-12] MEDS: LOSARTAN 50 MG TAB PO SCH (09:06)
[2018-11-12] MEDS: LABETALOL 200 MG TAB PO SCH ×2 (09:06→19:58)
[2018-11-12] MEDS: BACLOFEN 10 MG TAB PO SCH ×3 (09:06→20:43)
[2018-11-12] MEDS ORDERED: INSULIN ASPART [NOVOLOG] 3 ML PEN SC ONE (10:00)
[2018-11-12] MEDS ORDERED: ACCU-CHEK XX ONE (10:00)
[2018-11-12] MEDS: AMPICILLIN/SULB 1.5GM/NS (PMX) 50 ML IVPB SCH ×2 (11:08→20:45)
[2018-11-12] MEDS ORDERED: INSULIN ASPART [NOVOLOG] 3 ML PEN SC SCH (11:50)
--- NOTE | 2018-11-12 11:59 | PN ---
Date/Time of Note Date/Time of Note DATE: 11/12/18 TIME: 11:55 Assessment/Plan VTE Prophylaxis Risk score (from Ns)>0 risk: 7 SCD applied (from Ns): No SCD contraindicated: bilateral LE trauma Pharmacological prophylaxis: NA/contraindicated Pharm contraindication: low risk/ambulating Lines/Catheters IV [facility]ter [facility]from [facility]): [facility] Urinary Cath still in place: No Assessment/Plan Assessment/Plan 28 yo woman with type I diabetes, ESRD on dialysis, diabetic gastroparesis, blindness, tib/fib fracture. # DM type 1 #Hyperglycemia - noncompliant - was seen by Endocrinology during last admission and will continue on same regime. If still remains uncontrolled, will reconsult #Diabetic gastroperesis - Small frequent meals throughout the day - PRN zofran, levsin for nausea. #Hypertension - Continue home medications while patient is tolerating PO # ESRD on HD - Nephrology consulted for HD management # Recent right tibia/fibula fracture - conservative management - Seen twice by Dr. Babcock. Dispo: Had two hospital readmissions in the past month when patient went home and did not take BP meds and insulin. Result Diagram: 11/12/18 0704 11/12/18 0704 Subjective 24 Hr Interval Summary Free Text/Dictation No acute overnight events. Patient tolerating diet, no vomiting. Exam/Review of Systems Exam Vitals Vital Signs Date Temp Pulse Resp B/P (MAP) Pulse Ox O2 O2 Flow FiO2 Time Delivery Rate 11/12/18 81 09:50 11/12/18 98.0 18 190/82 98 07:19 (118) 11/11/18 Room Air 23:02 Intake and Output 11/11/18 11/11/18 11/12/18 1414:59 22:59 06:59 IntakeIntake Total 1529.0 ml 200 ml OutputOutput Total 3400 ml 3000 ml BalanceBalance 1529.0 ml -3400 ml -2800 ml Exam General: Patient is laying in bed and answers questions appropriately Mentation: Patient is alert and oriented 4, Head: Normocephalic atraumatic Neck: Supple, nontender, midline Respiratory: Clear to auscultation bilaterally. no wheezing or rhonchi Cardiovascular: regular rate and rhythm, no obvious murmurs Gastrointestinal: soft, nontender to palpation, nondistended, no rebound or guarding, normoactive bowel sounds. Ext: Moves all extremities spontaneously Skin: No new skin lesions Results Results 24hrs Laboratory Tests Test 11/11/18 12:31 11/11/18 13:33 11/11/18 14:06 11/11/18 14:40 Bedside Glucose 116 57 L 97 85 Test 11/11/18 15:19 11/11/18 17:47 11/11/18 20:33 11/12/18 07:04 Bedside Glucose 107 206 202 White Blood Count 9.2 # Red Blood Count 2.57 L Hemoglobin 7.9 L Hematocrit 24.7 L Mean Corpuscular 96.1 Volume Mean Corpuscular 30.7 Hemoglobin Mean Corpuscular 32.0 Hemoglobin Concent Red Cell 18.2 H Distribution Width Platelet Count 213 Mean Platelet Volume 10.1 Immature 0.400 Granulocytes % Neutrophils % 83.4 H Lymphocytes % 5.9 L Monocytes % 6.9 Eosinophils % 2.7 Basophils % 0.7 Nucleated Red Blood 0.0 Cells % Immature 0.040 H Granulocytes # Neutrophils # 7.6 H Lymphocytes # 0.5 L Monocytes # 0.6 Eosinophils # 0.3 Basophils # 0.1 Nucleated Red Blood 0.0 Cells # Sodium Level 136 Potassium Level 4.9 Chloride Level 100 Carbon Dioxide Level 17 L Anion Gap 19 #H Blood Urea Nitrogen 18 # Creatinine 4.96 #H Est Glomerular 10 L Filtrat Rate mL/min Glucose Level 297 #H Calcium Level 9.1 Test 11/12/18 07:42 11/12/18 09:58 Bedside Glucose 304 H 307 H Medications Medication Current Medications IV Flush (NS 3 ml) 3 ml PER PROTOCOL IV ; Start 11/10/18 at 19:30 Acetaminophen (Tylenol Tab) 650 mg Q6H PRN PO .PAIN 1-3 OR TEMP; Start 11/10/18 at 19:30 Acetaminophen/ Hydrocodone Bitart ([place] (5/325)) 1 tab Q6H PRN PO .MOD PAIN 4- 6; Start 11/10/18 at 19:30 Docusate Sodium (Colace) 100 mg Q12H PRN PO .CONSTIPATION; Start 11/10/18 at 19:30 Magnesium Hydroxide (Milk Of Mag) 30 ml DAILY PRN PO .CONSTIPATION; Start 11/10/18 at 19:30 Lorazepam (Ativan) 0.5 mg Q6H PRN IV ANXIETY Last administered on 11/10/18 20:21; Admin Dose 0.5 MG; Start 11/10/18 at 19:30 Albuterol/ Ipratropium (Duoneb) 3 ml Q4H RESP THERAPY PRN HHN SHORTNESS OF BREATH; Start 11/10/18 at 19:30 Hydralazine HCl (Apresoline) 10 mg Q4H PRN IV ELEVATED BLOOD PRESSURE Last administered on 11/12/18 04:31; Admin Dose 10 MG; Start 11/10/18 at 19:30 Nitroglycerin (Nitroglycerin (Sl Tab) 0.4 Mg) 1 tab Q5M PRN SL ANGINA; Start 11/10/18 at 19:30 Sodium Chloride 1,000 ml @ 0 mls/hr Q0M IV Last administered on 11/10/18 20:00; Admin Dose 250 MLS/HR; Start 11/10/18 at 19:23 Baclofen (Lioresal) 5 mg TID PO Last administered on 11/12/18 09:06; Admin Dose 5 MG; Start 11/10/18 at 21:00 Calcium Carbonate (Tums Ex) 300 mg Q2H PRN PO GASTROINTESTINAL UPSET; Start 11/10/18 at 19:30; Status Hold Clonidine (Catapres) 0.4 mg BID PO Last administered on 11/12/18 09:07; Admin Dose 0.4 MG; Start 11/10/18 at 21:00 Erythromycin (Erythromycin) 250 mg TID PO Last administered on 11/12/18 09:05; Admin Dose 250 MG; Start 11/10/18 at 21:00 Hydralazine HCl (Apresoline) 100 mg TID PO Last administered on 11/12/18 09:06; Admin Dose 100 MG; Start 11/10/18 at 21:00 Hyoscyamine (Levsin (Sl)) 0.125 mg Q8 PRN PO NAUSEA Last administered on 11/11/18 10:01; Admin Dose 0.125 MG; Start 11/10/18 at 19:30 Labetalol HCl (Normodyne) 1,200 mg BID PO Last administered on 11/12/18 09:06; Admin Dose 1,200 MG; Start 11/10/18 at 21:00 Losartan Potassium (Cozaar) 100 mg DAILY PO Last administered on 11/12/18 0 9:06; Admin Dose 100 MG; Start 11/11/18 at 09:00 Eye Lubricant (Artificial Tears Oph) 2 drop Q6H PRN BOTH EYES DRY EYES; Start 11/10/18 at 19:30 Spironolactone (Aldactone) 25 mg BID PO Last administered on 11/12/18 09:04; Admin Dose 25 MG; Start 11/10/18 at 21:00 Sucralfate (Carafate) 1 gm QID PO Last administered on 11/12/18 09:04; Admin Dose 1 GM; Start 11/10/18 at 21:00 Ondansetron HCl 8 mg/Sodium Chloride 54 ml @ 216 mls/hr Q6H PRN IV NAUSEA AND/OR VOMITING; Start 11/10/18 at 20:00 Pantoprazole (Protonix Tab) 40 mg BID@0600,1800 PO Last administered on 11/12/18 05:48; Admin Dose 40 MG; Start 11/11/18 at 06:00 Ampicillin Sodium/ Sulbactam Sodium 50 ml @ 100 mls/hr Q12 IVPB Last administered on 11/12/18 11:08; Admin Dose 100 MLS/HR; Start 11/11/18 at 09:00 Multivit/Ca Carb/ B Cmplx/FA/Prenat ([place]-Luis) 1 tab DAILY PO Last administered on 11/12/18 09:05; Admin Dose 1 TAB; Start 11/11/18 at 09:00 Sevelamer Carbonate (Renvela) 400 mg WITH MEALS PO Last administered on 07:52; Admin Dose 400 MG; Start 11/11/18 at 07:35 Hydromorphone HCl (Dilaudid) 0.5 mg Q4H PRN IV SEVERE PAIN LEVEL 7-10 Last administered on 11/12/18 09:58; Admin Dose 0.5 MG; Start 11/11/18 at 09:30 Heparin Sodium (Porcine) (Heparin (1000 Units/ml)) 3,700 unit AFTER DIALYSIS CATHETER Last administered on 11/11/18 16:13; Admin Dose 3,700 UNIT; Start 11/11/18 at 12:30 Miscellaneous Information (* Miscellaneous Pharmacy Order) Treatment of Hypoglycemia: 1.BG 51... Per protocol XX ; Start 11/11/18 at 13:00 Dextrose (D50w Syringe) 25 ml Q15M PRN IV .DECREASED GLUCOSE; Start 11/11/18 at 13:00 Dextrose (D50w Syringe) 50 ml Q15M PRN IV .DECREASED GLUCOSE; Start 11/11/18 at 13:00 Insulin Aspart (Novolog Insulin Pen) 2 unit WITH MEALS SC Last administered on 11/12/18at 07:46; Admin Dose 2 UNIT; Start 11/11/18 at 17:35 Insulin Glargine (Lantus) 6 units BID SC Last administered on 11/12/18at 07:55; Admin Dose 6 UNITS; Start 11/11/18 at 15:00 Diagnostic Test (Pha) (Accu-Chek) 1 ea AC MEALS XX Last administered on 11/12/18at 07:42; Admin Dose 1 EA; Start 11/11/18 at 17:05 Insulin Aspart (Novolog Insulin Pen) NOVOLOG *MILD* ALGORITHM WITH MEALS BEDTIME SC ; Start 11/12/18 at 11:50 VINICIUS YAÑEZ MD November 12, 2018 11:59
--- NOTE | 2018-11-12 14:11 | CONS ---
Assessment/Plan Assessment/Plan Hospital Course (Demo Recall) Uncontrolled Type 1 DM with multiple complications -continue Lantus 6 untis SC BID -continue Novolog 2 units TID, advised patient to get it after she finishes her meal -will adjust mild dose novolog correction scale to start when FS >180 before meals and when bedtime FS >220 -check FS AC and HS -will follow with you Consultation Date/Type/Reason Admit Date/Time November 10, 2018 at 17:12 Initial Consult Date 11/11/18 Requesting Provider: HONG LEOS Date/Time of Note DATE: 11/12/18 TIME: 14:04 24 HR Interval Summary Free Text/Dictation Patient seen and examined at bedside. She complains of nausea, vomiting and abdominal pain. Exam/Review of Systems Exam Vitals Vital Signs Date Temp Pulse Resp B/P (MAP) Pulse Ox O2 O2 Flow FiO2 Time Delivery Rate 11/12/18 84 12:26 11/12/18 98.0 18 139/60 98 12:16 (86) 11/11/18 Room Air 23:02 Intake and Output 11/11/18 11/11/18 11/12/18 1515:00 23:00 07:00 IntakeIntake Total 1272.0 ml 200 ml OutputOutput Total 3400 ml 3000 ml BalanceBalance 1272.0 ml -3400 ml -2800 ml Exam General: Comfortable in appearance, not in acute distress. Skin appropriate for ethnicity Eye: Extraocular movements are intact, Normal conjunctiva. HENT: Normocephalic, atraumatic. Respiratory: Respirations are non-labored, Breath sounds are equal, Symmetrical chest wall expansion. Cardiovascular: S1, S2. Holosystolic murmur. Hyperpigmentation of left lower extremity Gastrointestinal: Soft, Non-tender, Non-distended, Normal bowel sounds. Integumentary: Warm to touch. Neurologic: Alert, Oriented. Cognition and Speech: Functional cognition intact. Psychiatric: Cooperative, Appropriate mood & affect. Results Result Diagram: 11/12/18 0704 11/12/18 0704 Results 24hrs Laboratory Tests Test 11/11/18 14:06 11/11/18 14:40 11/11/18 15:19 11/11/18 17:47 Bedside Glucose 97 85 107 206 Test 11/11/18 20:33 11/12/18 07:04 11/12/18 07:42 11/12/18 09:58 Bedside Glucose 202 304 H 307 H White Blood Count 9.2 # Red Blood Count 2.57 L Hemoglobin 7.9 L Hematocrit 24.7 L Mean Corpuscular 96.1 Volume Mean Corpuscular 30.7 Hemoglobin Mean Corpuscular 32.0 Hemoglobin Concent Red Cell 18.2 H Distribution Width Platelet Count 213 Mean Platelet Volume 10.1 Immature 0.400 Granulocytes % Neutrophils % 83.4 H Lymphocytes % 5.9 L Monocytes % 6.9 Eosinophils % 2.7 Basophils % 0.7 Nucleated Red Blood 0.0 Cells % Immature 0.040 H Granulocytes # Neutrophils # 7.6 H Lymphocytes # 0.5 L Monocytes # 0.6 Eosinophils # 0.3 Basophils # 0.1 Nucleated Red Blood 0.0 Cells # Sodium Level 136 Potassium Level 4.9 Chloride Level 100 Carbon Dioxide Level 17 L Anion Gap 19 #H Blood Urea Nitrogen 18 # Creatinine 4.96 #H Est Glomerular 10 L Filtrat Rate mL/min Glucose Level 297 #H Calcium Level 9.1 Test 11/12/18 11:54 Bedside Glucose 198 Medications Medication Current Medications IV Flush (NS 3 ml) 3 ml PER PROTOCOL IV ; Start 11/10/18 at 19:30 Acetaminophen (Tylenol Tab) 650 mg Q6H PRN PO .PAIN 1-3 OR TEMP; Start 11/10/18 at 19:30 Acetaminophen/ Hydrocodone Bitart ([place] (5/325)) 1 tab Q6H PRN PO .MOD PAIN 4- 6; Start 11/10/18 at 19:30 Docusate Sodium (Colace) 100 mg Q12H PRN PO .CONSTIPATION; Start 11/10/18 at 19:30 Magnesium Hydroxide (Milk Of Mag) 30 ml DAILY PRN PO .CONSTIPATION; Start 11/10/18 at 19:30 Lorazepam (Ativan) 0.5 mg Q6H PRN IV ANXIETY Last administered on 11/10/18at 20:21; Admin Dose 0.5 MG; Start 11/10/18 at 19:30 Albuterol/ Ipratropium (Duoneb) 3 ml Q4H RESP THERAPY PRN HHN SHORTNESS OF PRADIP TH; Start 11/10/18 at 19:30 Hydralazine HCl (Apresoline) 10 mg Q4H PRN IV ELEVATED BLOOD PRESSURE Last administered on 11/12/18 04:31; Admin Dose 10 MG; Start 11/10/18 at 19:30 Nitroglycerin (Nitroglycerin (Sl Tab) 0.4 Mg) 1 tab Q5M PRN SL ANGINA; Start 11/10/18 at 19:30 Sodium Chloride 1,000 ml @ 0 mls/hr Q0M IV Last administered on 11/10/18 20:00; Admin Dose 250 MLS/HR; Start 11/10/18 at 19:23 Baclofen (Lioresal) 5 mg TID PO Last administered on 11/12/18 09:06; Admin Dose 5 MG; Start 11/10/18 at 21:00 Calcium Carbonate (Tums Ex) 300 mg Q2H PRN PO GASTROINTESTINAL UPSET; Start 11/10/18 at 19:30; Status Hold Clonidine (Catapres) 0.4 mg BID PO Last administered on 11/12/18 09:07; Admin Dose 0.4 MG; Start 11/10/18 at 21:00 Erythromycin (Erythromycin) 250 mg TID PO Last administered on 11/12/18 09:05; Admin Dose 250 MG; Start 11/10/18 at 21:00 Hydralazine HCl (Apresoline) 100 mg TID PO Last administered on 11/12/18 09:06; Admin Dose 100 MG; Start 11/10/18 at 21:00 Hyoscyamine (Levsin (Sl)) 0.125 mg Q8 PRN PO NAUSEA Last administered on 11/11/18 10:01; Admin Dose 0.125 MG; Start 11/10/18 at 19:30 Labetalol HCl (Normodyne) 1,200 mg BID PO Last administered on 11/12/18 09:06; Admin Dose 1,200 MG; Start 11/10/18 at 21:00 Losartan Potassium (Cozaar) 100 mg DAILY PO Last administered on 11/12/18 09:06; Admin Dose 100 MG; Start 11/11/18 at 09:00 Eye Lubricant (Artificial Tears Oph) 2 drop Q6H PRN BOTH EYES DRY EYES; Start 11/10/18 at 19:30 Spironolactone (Aldactone) 25 mg BID PO Last administered on 11/12/18 09:04; Admin Dose 25 MG; Start 11/10/18 at 21:00 Sucralfate (Carafate) 1 gm QID PO Last administered on 11/12/18 09:04; Admin Dose 1 GM; Start 11/10/18 at 21:00 Ondansetron HCl 8 mg/Sodium Chloride 54 ml @ 216 mls/hr Q6H PRN IV NAUSEA AND/OR VOMITING; Start 11/10/18 at 20:00 Pantoprazole (Protonix Tab) 40 mg BID@0600,1800 PO Last administered on 11/12/18 05:48; Admin Dose 40 MG; Start 11/11/18 at 06:00 Ampicillin Sodium/ Sulbactam Sodium 50 ml @ 100 mls/hr Q12 IVPB Last administered on 11/12/18 11:08; Admin Dose 100 MLS/HR; Start 11/11/18 at 09:00 Multivit/Ca Carb/ B Cmplx/FA/Prenat ([place]-Luis) 1 tab DAILY PO Last administered on 11/12/18 09:05; Admin Dose 1 TAB; Start 11/11/18 at 09:00 Sevelamer Carbonate (Renvela) 400 mg WITH MEALS PO Last administered on 11/12/18 11:53; Admin Dose 400 MG; Start 11/11/18 at 07:35 Hydromorphone HCl (Dilaudid) 0.5 mg Q4H PRN IV SEVERE PAIN LEVEL 7-10 Last administered on 11/12/18 09:58; Admin Dose 0.5 MG; Start 11/11/18 at 09:30 Heparin Sodium (Porcine) (Heparin (1000 Units/ml)) 3,700 unit AFTER DIALYSIS CATHETER Last administered on 11/11/18 16:13; Admin Dose 3,700 UNIT; Start at 12:30 Miscellaneous Information (* Miscellaneous Pharmacy Order) Treatment of Hypoglycemia: 1.BG 51... Per protocol XX ; Start 11/11/18 at 13:00 Dextrose (D50w Syringe) 25 ml Q15M PRN IV .DECREASED GLUCOSE; Start 11/11/18 at 13:00 Dextrose (D50w Syringe) 50 ml Q15M PRN IV .DECREASED GLUCOSE; Start 11/11/18 at 13:00 Insulin Aspart (Novolog Insulin Pen) 2 unit WITH MEALS SC Last administered on 11/12/18 11:56; Admin Dose 2 UNIT; Start 11/11/18 at 17:35 Insulin Glargine (Lantus) 6 units BID SC Last administered on 11/12/18 07:55; Admin Dose 6 UNITS; Start 11/11/18 at 15:00 Diagnostic Test (Pha) (Accu-Chek) 1 ea AC MEALS XX Last administered on 11/12/18 11:55; Admin Dose 1 EA; Start 11/11/18 at 17:05 Insulin Aspart (Novolog Insulin Pen) NOVOLOG *MILD* ALGORITHM WITH MEALS B EDTIME SC Last administered on 11/12/18 11:56; Admin Dose 2 UNIT; Start 11/12/18 at 11:50 RAHEL FAJARDO MD November 12, 2018 14:11
[2018-11-12] MEDS ORDERED: DIPHENHYDRAMINE 50 MG INJ IV ONE (16:30)
[2018-11-12] MEDS: DIPHENHYDRAMINE 50 MG INJ IV PRN (17:52)
[2018-11-12] MEDS: HEPARIN 1000 UNITS/ML 10 ML INJ CATHETER SCH (19:50)
[2018-11-13] VITALS (12 sets, daily range): BP systolic 119–202; BP diastolic 61–94; PULSE 76–88; RESP 16–18
[2018-11-13] MEDS: DIPHENHYDRAMINE 50 MG INJ IV PRN ×4 (01:19→20:54)
[2018-11-13] MEDS: HYDROmorphONE 0.5 MG/0.5 ML SYG IV PRN ×6 (02:09→22:39)
[2018-11-13] MEDS: PANTOPRAZOLE (EC) 40 MG TAB PO SCH ×2 (06:27→18:41)
[2018-11-13] MEDS: hydrALAzine 20 MG INJ IV PRN (06:33)
[2018-11-13] MEDS: ACCU-CHEK XX SCH ×3 (07:25→17:25)
[2018-11-13] MEDS: INSULIN ASPART [NOVOLOG] 3 ML PEN SC SCH ×7 (07:55→20:42)
[2018-11-13] MEDS: SUCRALFATE 1 GM TAB PO SCH ×4 (08:10→20:41)
[2018-11-13] MEDS: ERYTHROMYCIN BASE (DR) 250 MG CAP PO SCH ×3 (08:10→20:41)
[2018-11-13] MEDS: MULTIVIT/CA CARB/B CMPLX/FA TAB PO SCH (08:11)
[2018-11-13] MEDS: SPIRONOLACTONE 50 MG TAB PO SCH ×2 (08:11→20:42)
[2018-11-13] MEDS: SEVELAMER CARBONATE 800 MG TABLET PO SCH ×3 (08:11→17:37)
[2018-11-13] MEDS: BACLOFEN 10 MG TAB PO SCH ×3 (08:12→20:41)
[2018-11-13] MEDS: LOSARTAN 50 MG TAB PO SCH (08:13)
[2018-11-13] MEDS: INSULIN GLARGINE [LANTus] (100 UNITS/ML) SYG SC SCH ×2 (08:28→21:28)
[2018-11-13] MEDS: LABETALOL 200 MG TAB PO SCH ×2 (09:00→21:56)
[2018-11-13] MEDS: AMPICILLIN/SULB 1.5GM/NS (PMX) 50 ML IVPB SCH ×2 (09:23→20:41)
--- NOTE | 2018-11-13 09:29 | PN ---
DATE: 11/13/2018 SUBJECTIVE: The patient is stable. No events overnight. She had hemodialysis yesterday, tolerated well. The patient still feels volume overloaded and is requesting another session of dialysis. No o ther events noted. OBJECTIVE: VITAL SIGNS: Blood pressure is 135/64, pulse 81, respirations 17, temperature 99.5. HEENT: Head is normocephalic. NECK: Supple. HEART: Regular rate. LUNGS: Show diminished breath sounds at the base. ABDOMEN: Soft, nontender to palpation without rebound or guarding. EXTREMITIES: Negative for clubbing, cyanosis. Trace edema. DERMATOLOGIC: No rashes. MUSCULOSKELETAL: No joint effusion. NEUROLOGIC: No change in exam. MEDICATIONS: Reviewed. LABORATORY DATA: From 11/13/2018 was reviewed. ASSESSMENT AND PLAN: 1. End-stage renal disease. The patient had hemodialysis today, tolerated well. We will anticipate dialysis again tomorrow. 2. Anemia. Continue to monitor hemoglobin and hematocrit levels. Continue Epogen. 3. Mineral bone disorder. Continue to monitor calcium and phosphorus levels. Continue phosphate bi nders. 4. Hypertension. Etiology is multifactorial. Continue current blood pressure regimen. Continue ul trafiltration with dialysis. 5. Diabetes. Continue current insulin regimen. 6. Right tibial fracture. Continue pain control. 7. Chronic pain and anxiety disorder. Continue current treatment plan. Follow up with pulmonary. 8. Periorbital swelling secondary to volume overload, improving. Continue ultrafiltration with hemo dialysis. Dictated By: JUJU MARTINEZ DO NR/NTS Conf#: [id number] DID#: [id number] CC: NAYAN WILLIS; VINICIUS YAÑEZ MD; AYLEEN HOWARD MD;*EndCC*
--- NOTE | 2018-11-13 12:08 | PN ---
Date/Time of Note Date/Time of Note DATE: 11/13/18 TIME: 12:04 Assessment/Plan VTE Prophylaxis Risk score (from Nsg)>0 risk: 7 SCD applied (from Nsg): No SCD contraindicated: other (no) Pharmacological prophylaxis: heparin Lines/Catheters IV Catheter Type (from Nrsg): Permacath Urinary Cath still in place: No Assessment/Plan Assessment/Plan 28 yo woman with type I diabetes, ESRD on dialysis, diabetic gastroparesis, blindness, tib/fib fracture. # DM type 1 #Hyperglycemia - was seen by Endocrinology during last admission and will continue on same regime. - Currently on glargine 6u BID - Aspart 2u TIDWM - Insulin sliding scale. - I'll plan to meet with her mother tomorrow to ensure this is similar to what she has at home. #Diabetic gastroperesis - Small frequent meals throughout the day - PRN zofran, levsin for nausea. - Apparently she was evaluated for gastric pacemaker at [facility] but was considered a poor candidate due to many comorbidities. #Hypertension - Continue home medications while patient is tolerating PO # ESRD on HD - Nephrology consulted for HD management # Recent right tibia/fibula fracture - conservative management - Seen twice by Dr. Babcock. - Continue leg brace for 6 weeks. Result Diagram: 11/13/18 0642 11/13/18 0642 Subjective 24 Hr Interval Summary Free Text/Dictation No acute overnight events. Patient feeling well. Vomited yesterday during dialysis, which she said is common for her. Otherwise feeling well. I spoke at length to her mother Malena on the phone ([phone]). She is frustrated the patient keeps getting readmitted for DKA. Exam/Review of Systems Exam Vitals Vital Signs Date Temp Pulse Resp B/P (MAP) Pulse Ox O2 O2 Flow FiO2 Time Delivery Rate 11/13/18 99.3 87 17 134/61 94 11:46 (85) 11/12/18 Nasal 1.0 20:00 Cannula Intake and Output 11/12/18 11/12/18 11/13/18 1515:00 23:00 07:00 IntakeIntake Total 750 ml OutputOutput Total 3400 ml BalanceBalance -2650 ml Exam General: Patient is laying in bed and answers questions appropriately Mentation: Patient is alert and oriented 4, Head: Normocephalic atraumatic Neck: Supple, nontender, midline Respiratory: Clear to auscultation bilaterally. no wheezing or rhonchi Cardiovascular: regular rate and rhythm, no obvious murmurs Gastrointestinal: soft, nontender to palpation, nondistended, no rebound or guarding, normoactive bowel sounds. Ext: Moves all extremities spontaneously Skin: No new skin lesions Results Results 24hrs Laboratory Tests Test 11/12/18 17:39 11/12/18 20:16 11/13/18 06:42 11/13/18 08:09 Bedside Glucose 118 89 178 White Blood Count 6.3 # Red Blood Count 2.69 L Hemoglobin 8.1 L Hematocrit 25.5 L Mean Corpuscular 94.8 Volume Mean Corpuscular 30.1 Hemoglobin Mean Corpuscular 31.8 L Hemoglobin Concent Red Cell 17.9 H Distribution Width Platelet Count 200 Mean Platelet Volume 10.0 Immature 0.300 Granulocytes % Neutrophils % 74.3 Lymphocytes % 7.6 L Monocytes % 11.2 H Eosinophils % 5.8 Basophils % 0.8 Nucleated Red Blood 0.0 Cells % Immature 0.020 Granulocytes # Neutrophils # 4.7 Lymphocytes # 0.5 L Monocytes # 0.7 Eosinophils # 0.4 Basophils # 0.1 Nucleated Red Blood 0.0 Cells # Sodium Level 140 Potassium Level 4.4 Chloride Level 103 Carbon Dioxide Level 27 # Anion Gap 10 # Blood Urea Nitrogen 11 Creatinine 3.18 #H Est Glomerular 17 L Filtrat Rate mL/min Glucose Level 64 #L Calcium Level 8.7 Medications Medication Current Medications IV Flush (NS 3 ml) 3 ml PER PROTOCOL IV ; Start 11/10/18 at 19:30 Acetaminophen (Tylenol Tab) 650 mg Q6H PRN PO .PAIN 1-3 OR TEMP; Start 11/10/18 at 19:30 Acetaminophen/ Hydrocodone Bitart ([place] (5/325)) 1 tab Q6H PRN PO .MOD PAIN 4-6; Start 11/10/18 at 19:30 Docusate Sodium (Colace) 100 mg Q12H PRN PO .CONSTIPATION; Start 11/10/18 at 19:30 Magnesium Hydroxide (Milk Of Mag) 30 ml DAILY PRN PO .CONSTIPATION; Start 11/10/18 at 19:30 Lorazepam (Ativan) 0.5 mg Q6H PRN IV ANXIETY Last administered on 11/10/18 20:21; Admin Dose 0.5 MG; Start 11/10/18 at 19:30 Albuterol/ Ipratropium (Duoneb) 3 ml Q4H RESP THERAPY PRN HHN SHORTNESS OF BREATH; Start 11/10/18 at 19:30 Hydralazine HCl (Apresoline) 10 mg Q4H PRN IV ELEVATED BLOOD PRESSURE Last administered on 11/13/18 06:33; Admin Dose 10 MG; Start 11/10/18 at 19:30 Nitroglycerin (Nitroglycerin (Sl Tab) 0.4 Mg) 1 tab Q5M PRN SL ANGINA; Start 11/10/18 at 19:30 Sodium Chloride 1,000 ml @ 0 mls/hr Q0M IV Last administered on 11/10/18 20:00; Admin Dose 250 MLS/HR; Start 11/10/18 at 19:23 Baclofen (Lioresal) 5 mg TID PO Last administered on 11/13/18 08:12; Admin Dose 5 MG; Start 11/10/18 at 21:00 Calcium Carbonate (Tums Ex) 300 mg Q2H PRN PO GASTROINTESTINAL UPSET; Start 11/10/18 at 19:30; Status Hold Clonidine (Catapres) 0.4 mg BID PO Last administered on 11/13/18 08:12; Admin Dose 0.4 MG; Start 11/10/18 at 21:00 Erythromycin (Erythromycin) 250 mg TID PO Last administered on 11/13/18 08:10; Admin Dose 250 MG; Start 11/10/18 at 21:00 Hydralazine HCl (Apresoline) 100 mg TID PO Last administered on 11/13/18 08:12; Admin Dose 100 MG; Start 11/10/18 at 21:00 Hyoscyamine (Levsin (Sl)) 0.125 mg Q8 PRN PO NAUSEA Last administered on 11/11/18 10:01; Admin Dose 0.125 MG; Start 11/10/18 at 19:30 Labetalol HCl (Normodyne) 1,200 mg BID PO Last administered on 11/12/18 19:58; Admin Dose 1,200 MG; Start 11/10/18 at 21:00 Losartan Potassium (Cozaar) 100 mg DAILY PO Last administered on 11/13/18 08:13; Admin Dose 100 MG; Start 11/11/18 at 09:00 Eye Lubricant (Artificial Tears Oph) 2 drop Q6H PRN BOTH EYES DRY EYES; Start 11/10/18 at 19:30 Spironolactone (Aldactone) 25 mg BID PO Last administered on 11/13/18 08:11; Admin Dose 25 MG; Start 11/10/18 at 21:00 Sucralfate (Carafate) 1 gm QID PO Last administered on 11/13/18 08:10; Admin Dose 1 GM; Start 11/10/18 at 21:00 Ondansetron HCl 8 mg/Sodium Chloride 54 ml @ 216 mls/hr Q6H PRN IV NAUSEA AN D/OR VOMITING; Start 11/10/18 at 20:00 Pantoprazole (Protonix Tab) 40 mg BID@0600,1800 PO Last administered on 11/13/18 06:27; Admin Dose 40 MG; Start 11/11/18 at 06:00 Ampicillin Sodium/ Sulbactam Sodium 50 ml @ 100 mls/hr Q12 IVPB Last administered on 11/13/18 09:23; Admin Dose 100 MLS/HR; Start 11/11/18 at 09:00 Multivit/Ca Carb/ B Cmplx/FA/Prenat ([place]) 1 tab DAILY PO Last administe red on 11/13/18 08:11; Admin Dose 1 TAB; Start 11/11/18 at 09:00 Sevelamer Carbonate (Renvela) 400 mg WITH MEALS PO Last administered on 11/13/18 08:11; Admin Dose 400 MG; Start 11/11/18 at 07:35 Hydromorphone HCl (Dilaudid) 0.5 mg Q4H PRN IV SEVERE PAIN LEVEL 7-10 Last administered on 11/13/18 10:20; Admin Dose 0.5 MG; Start 11/11/18 at 09:30 Heparin Sodium (Porcine) (Heparin (1000 Units/ml)) 3,700 unit AFTER DIALYSIS CATHETER Last administered on 11/12/18 19:50; Admin Dose 3,700 UNIT; Start 11/11/18 at 12:30 Miscellaneous Information (* Miscellaneous Pharmacy Order) Treatment of Hyp oglycemia: 1.BG 51... Per protocol XX ; Start 11/11/18 at 13:00 Dextrose (D50w Syringe) 25 ml Q15M PRN IV .DECREASED GLUCOSE; Start 11/11/18 at 13:00 Dextrose (D50w Syringe) 50 ml Q15M PRN IV .DECREASED GLUCOSE; Start 11/11/18 at 13:00 Insulin Aspart (Novolog Insulin Pen) 2 unit WITH MEALS SC Last administered on 11/13/18at 08:28; Admin Dose 2 UNIT; Start 11/11/18 at 17:35 Insulin Glargine (Lantus) 6 units BID SC Last administered on 11/13/18 08:28; Admin Dose 6 UNITS; Start 11/11/18 at 15:00 Diagnostic Test (Pha) (Accu-Chek) 1 ea AC MEALS XX Last administered on 11/12/18at 17:43; Admin Dose 1 EA; Start 11/11/18 at 17:05 Insulin Aspart (Novolog Insulin Pen) NOVOLOG *MILD* ALGORITHM WITH MEALS BEDTIME SC ; Start 11/12/18 at 17:55 Diphenhydramine HCl (Benadryl) 25 mg Q6H PRN IV ITCHING Last administered on 11/13/18 08:13; Admin Dose 25 MG; Start 11/12/18 at 16:30 VINICIUS YAÑEZ MD November 13, 2018 12:08
[2018-11-13] MEDS ORDERED: INSULIN ASPART [NOVOLOG] 3 ML PEN SC SCH ×3 (13:00→17:55)
--- NOTE | 2018-11-13 14:29 | CONS ---
Assessment/Plan Assessment/Plan Hospital Course (Demo Recall) Uncontrolled Type 1 DM with multiple complications -advised to eat 6 small meals with snacks -decrease Lantus to 5 units SC BID given morning hypoglycemia -given that patient is eating more now, 2 units per meal is likely not enough, hence prelunch hyperglycemia after carbohydrate heavy breakfast. It is most ideal to administer standing Novolog based on insulin to carbohydrate ratio. -increase Novolog to 3 units with each meal, advised patient to get it after she finishes her meal -will start Novolog 1 unit with snack -will continue custom Novolog correction scale to start when FS >180 before meals and when bedtime FS >220 -check FS AC and HS -will follow with you Consultation Date/Type/Reason Admit Date/Time November 10, 2018 at 17:12 Initial Consult Date 11/11/18 Requesting Provider: HONG LEOS Date/Time of Note DATE: 11/13/18 TIME: 14:26 24 HR Interval Summary Free Text/Dictation Patient seen and examined at bedside. Morning hypoglycemia noted, prelunch hyperglycemia noted. She states that her appetite is improving and had a large breakfast including sandwich, crackers and cereal. Exam/Review of Systems Exam Vitals Vital Signs Date Temp Pulse Resp B/P (MAP) Pulse Ox O2 O2 Flow FiO2 Time Delivery Rate 11/13/18 88 14:14 11/13/18 99.3 17 134/61 94 11:46 (85) 11/12/18 Nasal 1.0 20:00 Cannula Intake and Output 11/12/18 11/12/18 11/13/18 1515:00 23:00 07:00 IntakeIntake Total 750 ml OutputOutput Total 3400 ml BalanceBalance -2650 ml Exam General: Comfortable in appearance, not in acute distress. Skin appropriate for ethnicity Eye: Extraocular movements are intact, Normal conjunctiva. HENT: Normocephalic, atraumatic. Respiratory: Respirations are non-labored, Breath sounds are equal, Symmetrical chest wall expansion. Cardiovascular: S1, S2. Holosystolic murmur Gastrointestinal: Soft, Non-tender, Non-distended, Normal bowel sounds. Integumentary: Warm to touch. Dry skin Neurologic: Alert, Oriented. Cognition and Speech: Speech clear and coherent, Functional cognition intact. Psychiatric: Cooperative, Appropriate mood & affect. Results Result Diagram: 5/15/19 0642 11/13/18 0642 Results 24hrs Laboratory Tests Test 11/12/18 17:39 11/12/18 20:16 11/13/18 06:42 11/13/18 08:09 Bedside Glucose 118 89 178 White Blood Count 6.3 # Red Blood Count 2.69 L Hemoglobin 8.1 L Hematocrit 25.5 L Mean Corpuscular 94.8 Volume Mean Corpuscular 30.1 Hemoglobin Mean Corpuscular 31.8 L Hemoglobin Concent Red Cell 17.9 H Distribution Width Platelet Count 200 Mean Platelet Volume 10.0 Immature 0.300 Granulocytes % Neutrophils % 74.3 Lymphocytes % 7.6 L Monocytes % 11.2 H Eosinophils % 5.8 Basophils % 0.8 Nucleated Red Blood 0.0 Cells % Immature 0.020 Granulocytes # Neutrophils # 4.7 Lymphocytes # 0.5 L Monocytes # 0.7 Eosinophils # 0.4 Basophils # 0.1 Nucleated Red Blood 0.0 Cells # Sodium Level 140 Potassium Level 4.4 Chloride Level 103 Carbon Dioxide Level 27 # Anion Gap 10 # Blood Urea Nitrogen 11 Creatinine 3.18 #H Est Glomerular 17 L Filtrat Rate mL/min Glucose Level 64 #L Calcium Level 8.7 Test 11/13/18 12:08 Bedside Glucose 310 H Medications Medication Current Medications IV Flush (NS 3 ml) 3 ml PER PROTOCOL IV ; Start 11/10/18 at 19:30 Acetaminophen (Tylenol Tab) 650 mg Q6H PRN PO .PAIN 1-3 OR TEMP; Start 11/10/18 at 19:30 Acetaminophen/ Hydrocodone Bitart ([place] (5/325)) 1 tab Q6H PRN PO .MOD PAIN 4- 6; Start 11/10/18 at 19:30 Docusate Sodium (Colace) 100 mg Q12H PRN PO .CONSTIPATION; Start 11/10/18 at 19:30 Magnesium Hydroxide (Milk Of Mag) 30 ml DAILY PRN PO .CONSTIPATION; Start 11/10/18 at 19:30 Lorazepam (Ativan) 0.5 mg Q6H PRN IV ANXIETY Last administered on 11/10/18at 20 :21; Admin Dose 0.5 MG; Start 11/10/18 at 19:30 Albuterol/ Ipratropium (Duoneb) 3 ml Q4H RESP THERAPY PRN HHN SHORTNESS OF BREATH; Start 11/10/18 at 19:30 Hydralazine HCl (Apresoline) 10 mg Q4H PRN IV ELEVATED BLOOD PRESSURE Last administered on 11/13/18 06:33; Admin Dose 10 MG; Start 11/10/18 at 19:30 Nitroglycerin (Nitroglycerin (Sl Tab) 0.4 Mg) 1 tab Q5M PRN SL ANGINA; Start 11/10/18 at 19:30 Sodium Chloride 1,000 ml @ 0 mls/hr Q0M IV Last administered on 11/10/18 20:00; Admin Dose 250 MLS/HR; Start 11/10/18 at 19:23 Baclofen (Lioresal) 5 mg TID PO Last administered on 11/13/18 12:10; Admin Dose 5 MG; Start 11/10/18 at 21:00 Calcium Carbonate (Tums Ex) 300 mg Q2H PRN PO GASTROINTESTINAL UPSET; Start 11/10/18 at 19:30; Status Hold Clonidine (Catapres) 0.4 mg BID PO Last administered on 11/13/18 08:12; Admin Dose 0.4 MG; Start 11/10/18 at 21:00 Erythromycin (Erythromycin) 250 mg TID PO Last administered on 11/13/18 12:10; Admin Dose 250 MG; Start 11/10/18 at 21:00 Hydralazine HCl (Apresoline) 100 mg TID PO Last administered on 11/13/18 12:10; Admin Dose 100 MG; Start 11/10/18 at 21:00 Hyoscyamine (Levsin (Sl)) 0.125 mg Q8 PRN PO NAUSEA Last administered on 9at 10:01; Admin Dose 0.125 MG; Start 11/10/18 at 19:30 Labetalol HCl (Normodyne) 1,200 mg BID PO Last administered on 11/12/18 19:58; Admin Dose 1,200 MG; Start 11/10/18 at 21:00 Losartan Potassium (Cozaar) 100 mg DAILY PO Last administered on 11/13/18 08:13; Admin Dose 100 MG; Start 11/11/18 at 09:00 Eye Lubricant (Artificial Tears Oph) 2 drop Q6H PRN BOTH EYES DRY EYES; Start 11/10/18 at 19:30 Spironolactone (Aldactone) 25 mg BID PO Last administered on 11/13/18 08:11; Admin Dose 25 MG; Start 11/10/18 at 21:00 Sucralfate (Carafate) 1 gm QID PO Last administered on 11/13/18 12:10; Admin Dose 1 GM; Start 11/10/18 at 21:00 Ondansetron HCl 8 mg/Sodium Chloride 54 ml @ 216 mls/hr Q6H PRN IV NAUSEA AND/OR VOMITING; Start 11/10/18 at 20:00 Pantoprazole (Protonix Tab) 40 mg BID@0600,1800 PO Last administered on 11/13/18 06:27; Admin Dose 40 MG; Start 11/11/18 at 06:00 Ampicillin Sodium/ Sulbactam Sodium 50 ml @ 100 mls/hr Q12 IVPB Last administered on 11/13/18 09:23; Admin Dose 100 MLS/HR; Start 11/11/18 at 09:00 Multivit/Ca Carb/ B Cmplx/FA/Prenat ([place]) 1 tab DAILY PO Last administered on 11/13/18 08:11; Admin Dose 1 TAB; Start 11/11/18 at 09:00 Sevelamer Carbonate (Renvela) 400 mg WITH MEALS PO Last administered on 11/13/18 12:10; Admin Dose 400 MG; Start 11/11/18 at 07:35 Hydromorphone HCl (Dilaudid) 0.5 mg Q4H PRN IV SEVERE PAIN LEVEL 7-10 Last administered on 11/13/18 10:20; Admin Dose 0.5 MG; Start 11/11/18 at 09:30 Heparin Sodium (Porcine) (Heparin (1000 Units/ml)) 3,700 unit AFTER DIALYSIS CATHETER Last administered on 11/12/18 19:50; Admin Dose 3,700 UNIT; Start 11/11/18 at 12:30 Miscellaneous Information (* Miscellaneous Pharmacy Order) Treatment of Hypoglycemia: 1.BG 51... Per protocol XX ; Start 11/11/18 at 13:00 Dextrose (D50w Syringe) 25 ml Q15M PRN IV .DECREASED GLUCOSE; Start 11/11/18 at 13:00 Dextrose (D50w Syringe) 50 ml Q15M PRN IV .DECREASED GLUCOSE; Start 11/11/18 at 13:00 Diagnostic Test (Pha) (Accu-Chek) 1 ea AC MEALS XX Last administered on 11/12/18at 17:43; Admin Dose 1 EA; Start 11/11/18 at 17:05 Insulin Aspart (Novolog Insulin Pen) NOVOLOG *MILD* ALGORITHM WITH MEALS BEDTIME SC Last administered on 11/13/18at 12:20; Admin Dose 5 UNIT; Start 11/12/18 at 17:55 Diphenhydramine HCl (Benadryl) 25 mg Q6H PRN IV ITCHING Last administered on 11/13/18at 14:13; Admin Dose 25 MG; Start 11/12/18 at 16:30 Insulin Glargine (Lantus) 5 units BID SC ; Start 11/13/18 at 21:00 Insulin Aspart (Novolog Insulin Pen) 4 unit WITH MEALS SC ; Start 11/13/18 at 17:55 RAHEL FAJARDO MD November 13, 2018 14:29
[2018-11-14] VITALS (26 sets, daily range): BP systolic 104–194; BP diastolic 51–90; PULSE 73–88; RESP 16–21
[2018-11-14] MEDS: HYDROmorphONE 0.5 MG/0.5 ML SYG IV PRN (04:58)
[2018-11-14] MEDS: PANTOPRAZOLE (EC) 40 MG TAB PO SCH ×2 (06:22→17:23)
[2018-11-14] MEDS: DIPHENHYDRAMINE 50 MG INJ IV PRN ×3 (06:29→21:38)
[2018-11-14] MEDS: ACCU-CHEK XX SCH ×3 (07:58→17:27)
[2018-11-14] MEDS: LABETALOL 200 MG TAB PO SCH ×2 (08:20→21:12)
[2018-11-14] MEDS: MULTIVIT/CA CARB/B CMPLX/FA TAB PO SCH (08:21)
[2018-11-14] MEDS: ERYTHROMYCIN BASE (DR) 250 MG CAP PO SCH ×3 (08:21→21:10)
[2018-11-14] MEDS: SEVELAMER CARBONATE 800 MG TABLET PO SCH ×3 (08:21→17:23)
[2018-11-14] MEDS: SUCRALFATE 1 GM TAB PO SCH ×4 (08:21→21:12)
[2018-11-14] MEDS: LOSARTAN 50 MG TAB PO SCH (08:22)
[2018-11-14] MEDS: SPIRONOLACTONE 50 MG TAB PO SCH ×2 (08:23→21:11)
[2018-11-14] MEDS: INSULIN ASPART [NOVOLOG] 3 ML PEN SC SCH ×7 (08:31→21:00)
[2018-11-14] MEDS: BACLOFEN 10 MG TAB PO SCH ×3 (08:35→21:11)
[2018-11-14] MEDS: AMPICILLIN/SULB 1.5GM/NS (PMX) 50 ML IVPB SCH ×2 (08:36→21:10)
--- NOTE | 2018-11-14 08:40 | PN ---
DATE: 11/14/2018 SUBJECTIVE: The patient is stable. No events overnight. No fevers, chills, nausea or vomiting. OBJECTIVE: VITAL SIGNS: Blood pressure is 142/64, pulse 82, respirations 18, temperature 98.7. HEENT: Head is normocephalic. NECK: Supple. HEART: Regular rate. LUNGS: Show diminished breath sounds at the base. ABDOMEN: Soft, nontender to palpation without rebound or guarding. EXTREMITIES: Negative for clubbing, cyanosis. Trace edema. DERMATOLOGIC: No rashes. MUSCULOSKELETAL: No joint effusion. NEUROLOGIC: No change in exam. MEDICATIONS: Reviewed. LABORATORY DATA: Reviewed. ASSESSMENT AND PLAN: 1. End-stage renal disease. Plan is for dialysis today. We will dialyze 3 hours 3k bath, calcium 2 .5. 2. Anemia. Monitor hemoglobin and hematocrit levels. Continue Epogen. 3. Mineral bone disorder, monitor calcium and phosphorus levels. Continue phosphate binders. 4. Hypertension. Etiology is multifactorial. Continue current blood pressure regimen. Continue ul trafiltration with dialysis. 5. Diabetes. Continue current insulin regimen. 6. Right tibial fracture. Continue pain control. The patient remains in brace. 7. Chronic pain disorder, anxiety disorder. Continue medical management. Dictated By: JUJU MARTINEZ DO NR/NTS Conf#: [id number] DID#: [id number] CC: NAYAN WILLIS; AYLEEN HOWARD MD; VINICIUS YAÑEZ MD;*End*
[2018-11-14] MEDS ORDERED: LORAZEPAM 1 MG TAB PO PRN (09:00)
[2018-11-14] MEDS ORDERED: LORAZEPAM 1 MG TAB SL PRN (10:00)
[2018-11-14] MEDS: INSULIN GLARGINE [LANTus] (100 UNITS/ML) SYG SC SCH ×2 (10:10→21:00)
[2018-11-14] MEDS ORDERED: HYDROmorphONE 4 MG TAB PO PRN (12:30)
[2018-11-14] MEDS ORDERED: DIPHENHYDRAMINE 50 MG INJ IM ONE (13:30)
[2018-11-14] MEDS ORDERED: DIPHENHYDRAMINE 50 MG INJ IV ONE ×2 (14:30→20:00)
[2018-11-14] MEDS: HEPARIN 1000 UNITS/ML 10 ML INJ CATHETER SCH (15:53)
--- NOTE | 2018-11-14 16:38 | PN ---
Date/Time of Note Date/Time of Note DATE: 11/14/18 TIME: 16:34 Assessment/Plan VTE Prophylaxis Risk score (from Nsg)>0 risk: 9 SCD applied (from Nsg): No SCD contraindicated: low risk/ambulating Pharmacological prophylaxis: heparin Lines/Catheters IV Catheter Type (from Nrsg): Permacath Urinary Cath still in place: No Assessment/Plan Assessment/Plan 28 yo woman with type I diabetes, ESRD on dialysis, diabetic gastroparesis, blindness, tib/fib fracture. # DM type 1 #Hyperglycemia - was seen by Endocrinology during last admission and will continue on same re gime. - Currently on glargine 6u BID - Aspart TIDWM - Insulin sliding scale. - Patient and family want vials, not pens. #Diabetic gastroperesis - Small frequent meals throughout the day - PRN zofran, levsin for nausea. - Apparently she was evaluated for gastric pacemaker at [facility] but was considered a poor candidate due to many comorbidities. #Hypertension - Continue home medications while patient is tolerating PO # ESRD on HD - Nephrology consulted for HD management # Recent right tibia/fibula fracture - conservative management - Seen twice by Dr. Babcock. - Continue leg brace for 6 weeks. Result Diagram: 11/14/18 0612 11/14/18 0612 Subjective 24 Hr Interval Summary Free Text/Dictation No acute overnight events. Met with patient and her mother today with [employer] early childhood special educator also. Discussed insulin administration. Her mother Malena brought in a glargine pen which she thought was empty, but actually just had a used needle and was full. We concluded that the patient and family prefer vials so will discharge her on these. I also am pulling off IV opiates today and will transition to PO dilaudid and norco. Switched diet to consistent carb, small frequent meals. Also got dialysis today. Exam/Review of Systems Exam Vitals Vital Signs Date Temp Pulse Resp B/P (MAP) Pulse Ox O2 O2 Flow FiO2 Time Delivery Rate 11/14/18 85 16:21 11/14/18 98.1 18 154/54 96 15:14 (87) 11/14/18 Nasal 2.0 12:35 Cannula Intake and Output 11/13/18 11/13/18 11/14/18 1515:00 23:00 07:00 IntakeIntake Total 350 ml 800 ml 500 ml BalanceBalance 350 ml 800 ml 500 ml Exam General: Patient is laying in bed and answers questions appropriately Mentation: Patient is alert and oriented 4, Head: Normocephalic atraumatic Neck: Supple, nontender, midline Respiratory: Clear to auscultation bilaterally. no wheezing or rhonchi Cardiovascular: regular rate and rhythm, no obvious murmurs Gastrointestinal: soft, nontender to palpation, nondistended, no rebound or guarding, normoactive bowel sounds. Ext: R leg brace in place. Skin: No new skin lesions Results Results 24hrs Laboratory Tests Test 11/13/18 17:35 11/13/18 20:34 11/14/18 06:12 11/14/18 07:56 Bedside Glucose 250 H 177 181 White Blood Count 7.6 # Red Blood Count 3.09 L Hemoglobin 9.2 L Hematocrit 29.6 L Mean Corpuscular 95.8 Volume Mean Corpuscular 29.8 Hemoglobin Mean Corpuscular 31.1 L Hemoglobin Concent Red Cell 17.9 H Distribution Width Platelet Count 215 Mean Platelet Volume 10.4 Immature 0.300 Granulocytes % Neutrophils % 78.8 H Lymphocytes % 5.4 L Monocytes % 7.7 Eosinophils % 6.9 Basophils % 0.9 Nucleated Red Blood 0.0 Cells % Immature 0.020 Granulocytes # Neutrophils # 6.0 Lymphocytes # 0.4 L Monocytes # 0.6 Eosinophils # 0.5 Basophils # 0.1 Nucleated Red Blood 0.0 Cells # Sodium Level 141 Potassium Level 4.5 Chloride Level 101 Carbon Dioxide Level 26 Anion Gap 14 H Blood Urea Nitrogen 20 Creatinine 4.80 #H Est Glomerular 11 L Filtrat Rate mL/min Glucose Level 138 # Calcium Level 9.6 Test 11/14/18 10:08 11/14/18 13:58 Bedside Glucose 257 H 207 Medications Medication Current Medications IV Flush (NS 3 ml) 3 ml PER PROTOCOL IV ; Start 11/10/18 at 19:30 Acetaminophen (Tylenol Tab) 650 mg Q6H PRN PO .PAIN 1-3 OR TEMP; Start 11/10/18 at 19:30 Acetaminophen/ Hydrocodone Bitart ([place] (5/325)) 1 tab Q6H PRN PO .MOD PAIN 4- 6; Start 11/10/18 at 19:30 Docusate Sodium (Colace) 100 mg Q12H PRN PO .CONSTIPATION; Start 11/10/18 at 19:30 Magnesium Hydroxide (Milk Of Mag) 30 ml DAILY PRN PO .CONSTIPATION; Start 11/10/18 at 19:30 Albuterol/ Ipratropium (Duoneb) 3 ml Q4H RESP THERAPY PRN HHN SHORTNESS OF BREATH; Start 11/10/18 at 19:30 Hydralazine HCl (Apresoline) 10 mg Q4H PRN IV ELEVATED BLOOD PRESSURE Last administered on 11/13/18 06:33; Admin Dose 10 MG; Start 11/10/18 at 19:30 Nitroglycerin (Nitroglycerin (Sl Tab) 0.4 Mg) 1 tab Q5M PRN SL ANGINA; Start 11/10/18 at 19:30 Baclofen (Lioresal) 5 mg TID PO Last administered on 11/14/18 08:35; Admin Dose 5 MG; Start 11/10/18 at 21:00 Calcium Carbonate (Tums Ex) 300 mg Q2H PRN PO GASTROINTESTINAL UPSET; Start 11/10/18 at 19:30; Status Hold Clonidine (Catapres) 0.4 mg BID PO Last administered on 11/14/18 08:23; Admin Dose 0.4 MG; Start 11/10/18 at 21:00 Erythromycin (Erythromycin) 250 mg TID PO Last administered on 11/14/18 08:21; Admin Dose 250 MG; Start 11/10/18 at 21:00 Hydralazine HCl (Apresoline) 100 mg TID PO Last administered on 11/14/18 08:22; Admin Dose 100 MG; Start 11/10/18 at 21:00 Hyoscyamine (Levsin (Sl)) 0.125 mg Q8 PRN PO NAUSEA Last administered on 11/11/18 10:01; Admin Dose 0.125 MG; Start 11/10/18 at 19:30 Labetalol HCl (Normodyne) 1,200 mg BID PO Last administered on 11/14/18 08:20; Admin Dose 1,200 MG; Start 11/10/18 at 21:00 Losartan Potassium (Cozaar) 100 mg DAILY PO Last administered on 11/14/18 08:22; Admin Dose 100 MG; Start 11/11/18 at 09:00 Eye Lubricant (Artificial Tears Oph) 2 drop Q6H PRN BOTH EYES DRY EYES; Start 11/10/18 at 19:30 Spironolactone (Aldactone) 25 mg BID PO Last administered on 11/14/18 08:23; Admin Dose 25 MG; Start 11/10/18 at 21:00 Sucralfate (Carafate) 1 gm QID PO Last administered on 11/14/18 08:21; Admin Dose 1 GM; Start 11/10/18 at 21:00 Ondansetron HCl 8 mg/Sodium Chloride 54 ml @ 216 mls/hr Q6H PRN IV NAUSEA AND/OR VOMITING Last administered on 11/13/18 14:45; Admin Dose 216 MLS/HR; Start 11/10/18 at 20:00 Pantoprazole (Protonix Tab) 40 mg BID@0600,1800 PO Last administered on 11/14/18 06:22; Admin Dose 40 MG; Start 11/11/18 at 06:00 Ampicillin Sodium/ Sulbactam Sodium 50 ml @ 100 mls/hr Q12 IVPB Last administered on 11/14/18 08:36; Admin Dose 100 MLS/HR; Start 11/11/18 at 09:00 Multivit/Ca Carb/ B Cmplx/FA/Prenat ([place]) 1 tab DAILY PO Last administered on 11/14/18 08:21; Admin Dose 1 TAB; Start 11/11/18 at 09:00 Sevelamer Carbonate (Renvela) 400 mg WITH MEALS PO Last administered on 11/14/18 12:07; Admin Dose 400 MG; Start 11/11/18 at 07:35 Heparin Sodium (Porcine) (Heparin (1000 Units/ml)) 3,700 unit AFTER DIALYSIS CATHETER Last administered on 11/14/18 15:53; Admin Dose 3,700 UNIT; Start 11/11/18 at 12:30 Diagnostic Test (Pha) (Accu-Chek) 1 ea AC MEALS XX Last administered on 11/14/18 14:00; Admin Dose 1 EA; Start 11/11/18 at 17:05 Insulin Aspart (Novolog Insulin Pen) NOVOLOG *MILD* ALGORITHM WITH MEALS BEDTIME SC Last administered on 11/14/18 15:23; Admin Dose 1 UNIT; Start 11/12/18 at 17:55 Diphenhydramine HCl (Benadryl) 25 mg Q6H PRN IV ITCHING Last administered on 11/14/18at 11:24; Admin Dose 25 MG; Start 11/12/18 at 16:30 Insulin Glargine (Lantus) 5 units BID SC Last administered on 11/14/18at 10:10; Admin Dose 5 UNITS; Start 11/13/18 at 21:00 Insulin Aspart (Novolog Insulin Pen) 1 unit WITH SNACKS SC ; Start 11/13/18 at 13:00 Insulin Aspart (Novolog Insulin Pen) To be given af... WITH MEALS SC Last administered on 11/14/18at 15:20; Admin Dose 6 UNIT; Start 11/14/18 at 11:50 Hydromorphone HCl (Dilaudid) 4 mg Q4H PRN PO SEVERE PAIN LEVEL 7-10; Start 11/14/18 at 12:30 Lorazepam (Ativan) 2 mg Q4H PRN SL ANXIETY; Start 11/14/18 at 18:00; Status UNV VINICIUS YAÑEZ MD November 14, 2018 16:38
[2018-11-14] MEDS: ONDANSETRON 4 MG INJ IV PRN (21:38)
[2018-11-14] MEDS: HYDROmorphONE 2 MG TAB PO PRN (22:10)
[2018-11-14] MEDS: LORAZEPAM 1 MG TAB SL PRN (22:23)
[2018-11-15] VITALS (27 sets, daily range): BP systolic 110–177; BP diastolic 52–99; PULSE 61–89; RESP 17–20
[2018-11-15] MEDS: PANTOPRAZOLE (EC) 40 MG TAB PO SCH ×2 (05:28→18:54)
[2018-11-15] MEDS: HYDROmorphONE 2 MG TAB PO PRN ×3 (05:29→22:52)
[2018-11-15] MEDS: INSULIN ASPART [NOVOLOG] 3 ML PEN SC SCH ×7 (07:54→22:06)
--- NOTE | 2018-11-15 08:28 | PN ---
DATE: 11/15/2018 SUBJECTIVE: The patient is stable. No events overnight. OBJECTIVE: VITAL SIGNS: Blood pressure is 147/52, pulse 80, respirations 18, temperature 98.2. HEENT: Head is normocephalic. NECK: Supple. HEART: Regular rate. LUNGS: Show diminished breath sounds at the base. ABDOMEN: Soft, nontender to palpation without rebound or guarding. EXTREMITIES: Negative for clubbing, cyanosis, no edema. DERMATOLOGIC: No rashes. MUSCULOSKELETAL: No joint effusion. NEUROLOGIC: No change in exam. LABORATORY DATA: Reviewed. MEDICATIONS: Reviewed. ASSESSMENT AND PLAN: 1. End-stage renal disease. The patient is on dialysis Sunday, Sunday, Sunday. Plan is for hemo dialysis today. Keep the patient on current dialysis regimen. 2. Anemia. Continue to monitor hemoglobin and hematocrit levels. We will give Epogen as needed. 3. Mineral bone disorder, monitor calcium and phosphorus levels. Continue phosphate binders. 4. Hypertensive urgency, etiology is in part due to increased intravascular volume. Continue ultraf iltration with hemodialysis. Continue current blood pressure regimen. 5. Diabetes. Continue current insulin regimen, adjust as needed. 6. Right tibial fracture. Continue pain control. The patient remains in a brace. Continue physica l therapy. 7. Chronic pain disorder, anxiety disorder. Continue current medical management. Dictated By: JUJU MARTINEZ DO NR/NTS Conf#: [id number] DID#: [id number] CC: VINICIUS YAÑEZ MD; NAYAN WILLIS; AYLEEN HOWARD MD;*End*
[2018-11-15] MEDS: MULTIVIT/CA CARB/B CMPLX/FA TAB PO SCH (09:03)
[2018-11-15] MEDS: SEVELAMER CARBONATE 800 MG TABLET PO SCH ×3 (09:03→17:40)
[2018-11-15] MEDS: ERYTHROMYCIN BASE (DR) 250 MG CAP PO SCH ×3 (09:03→21:01)
[2018-11-15] MEDS: LOSARTAN 50 MG TAB PO SCH (09:04)
[2018-11-15] MEDS: BACLOFEN 10 MG TAB PO SCH ×3 (09:05→21:08)
[2018-11-15] MEDS: LABETALOL 200 MG TAB PO SCH ×2 (09:05→21:08)
[2018-11-15] MEDS: ACCU-CHEK XX SCH ×3 (09:05→17:25)
[2018-11-15] MEDS: SPIRONOLACTONE 50 MG TAB PO SCH ×2 (09:05→21:02)
[2018-11-15] MEDS: ONDANSETRON 4 MG INJ IV PRN ×2 (09:16→22:52)
[2018-11-15] MEDS: INSULIN GLARGINE [LANTus] (100 UNITS/ML) SYG SC SCH ×2 (09:28→21:15)
[2018-11-15] MEDS: AMPICILLIN/SULB 1.5GM/NS (PMX) 50 ML IVPB SCH ×2 (12:23→21:00)
[2018-11-15] MEDS: SUCRALFATE 1 GM TAB PO SCH ×4 (12:24→21:01)
--- NOTE | 2018-11-15 13:06 | CONS ---
Assessment/Plan Assessment/Plan Hospital Course (Demo Recall) Uncontrolled Type 1 DM with multiple complications -morning hyperglycemia as patient didn't receive evening dose of basal insulin; her FS is expected to be in the hyperglycemic range today. -will continue Lantus 5 units SC BID (as 6 units BID gave her morning hypoglycemia) -will adjust standing mealtime and snack time Novolog based on insulin to carbohydrate ratio of 1:7 ( 1 unit of Novolog for every 7 grams of carbohydrate to be given after she eats) -will have DBE meet with patient to refresh carbohydrate counting -will continue custom Novolog correction scale to start when FS >180 before meals and when bedtime FS >220 -check FS AC and HS -will follow with you Consultation Date/Type/Reason Admit Date/Time November 10, 2018 at 17:12 Initial Consult Date 11/11/18 Requesting Provider: HONG LEOS Date/Time of Note DATE: 11/15/18 TIME: 13:03 24 HR Interval Summary Free Text/Dictation Patient seen and examined at bedside. Hyperglycemia noted this morning as patient didn't receive evening dose of Lantus 5 units. She is currently getting standing Novolog based on insulin to carb ratio. Exam/Review of Systems Exam Vitals Vital Signs Date Temp Pulse Resp B/P (MAP) Pulse Ox O2 O2 Flow FiO2 Time Delivery Rate 11/15/18 80 08:12 11/15/18 98.2 19 147/52 97 07:48 (83) 11/15/18 Room Air 04:00 11/14/18 2.0 12:35 Intake and Output 11/14/18 11/14/18 11/15/18 1515:00 23:00 07:00 IntakeIntake Total 700 ml OutputOutput Total 200 ml 2400 ml BalanceBalance -200 ml -1700 ml Exam General: Comfortable in appearance, not in acute distress. Skin appropriate for ethnicity Eye: Extraocular movements are intact, Normal conjunctiva. HENT: Normocephalic, atraumatic. Respiratory: Respirations are non-labored, Breath sounds are equal, Symmetrical chest wall expansion. Cardiovascular: S1, S2. Holosystolic murmur Gastrointestinal: Soft, Non-tender, Non-distended, Normal bowel sounds. Integumentary: Warm to touch. Dry skin Neurologic: Alert, Oriented. Cognition and Speech: Speech clear and coherent, Functional cognition intact. Psychiatric: Cooperative, Appropriate mood & affect. Results Result Diagram: 11/15/18 0601 11/15/18 0601 Results 24hrs Laboratory Tests Test 11/14/18 13:58 11/14/18 17:26 11/14/18 21:07 11/15/18 06:01 Bedside Glucose 207 97 169 White Blood Count 7.1 Red Blood Count 2.82 L Hemoglobin 8.5 L Hematocrit 27.7 L Mean Corpuscular 98.2 Volume Mean Corpuscular 30.1 Hemoglobin Mean Corpuscular 30.7 L Hemoglobin Concent Red Cell 17.7 H Distribution Width Platelet Count 188 Mean Platelet Volume 10.5 H Immature 0.400 Granulocytes % Neutrophils % 77.6 H Lymphocytes % 6.9 L Monocytes % 7.8 Eosinophils % 6.2 Basophils % 1.1 Nucleated Red Blood 0.0 Cells % Immature 0.030 Granulocytes # Neutrophils # 5.5 Lymphocytes # 0.5 L Monocytes # 0.6 Eosinophils # 0.4 Basophils # 0.1 Nucleated Red Blood 0.0 Cells # Sodium Level 136 Potassium Level 4.7 Chloride Level 98 Carbon Dioxide Level 20 L Anion Gap 18 H Blood Urea Nitrogen 20 Creatinine 3.84 H Est Glomerular 14 L Filtrat Rate mL/min Glucose Level 456 #*H Calcium Level 9.4 Test 11/15/18 07:26 11/15/18 08:59 11/15/18 12:23 Bedside Glucose 459 *H 407 *H 380 H Medications Medication Current Medications IV Flush (NS 3 ml) 3 ml PER PROTOCOL IV ; Start 11/10/18 at 19:30 Acetaminophen (Tylenol Tab) 650 mg Q6H PRN PO .PAIN 1-3 OR TEMP; Start 11/10/18 at 19:30 Acetaminophen/ Hydrocodone Bitart ([place] (5/325)) 1 tab Q6H PRN PO .MOD PAIN 4- 6; Start 11/10/18 at 19:30 Docusate Sodium (Colace) 100 mg Q12H PRN PO .CONSTIPATION; Start 11/10/18 at 19:30 Magnesium Hydroxide (Milk Of Mag) 30 ml DAILY PRN PO .CONSTIPATION; Start 11/10/18 at 19:30 Albuterol/ Ipratropium (Duoneb) 3 ml Q4H RESP THERAPY PRN HHN SHORTNESS OF BREATH; Start 11/10/18 at 19:30 Hydralazine HCl (Apresoline) 10 mg Q4H PRN IV ELEVATED BLOOD PRESSURE Last administered on 11/13/18 06:33; Admin Dose 10 MG; Start 11/10/18 at 19:30 Nitroglycerin (Nitroglycerin (Sl Tab) 0.4 Mg) 1 tab Q5M PRN SL ANGINA; Start 11/10/18 at 19:30 Baclofen (Lioresal) 5 mg TID PO Last administered on 11/15/18 09:05; Admin Dose 5 MG; Start 11/10/18 at 21:00 Calcium Carbonate (Tums Ex) 300 mg Q2H PRN PO GASTROINTESTINAL UPSET; Start 11/10/18 at 19:30; Status Hold Clonidine (Catapres) 0.4 mg BID PO Last administered on 11/15/18 09:04; Admin Dose 0.4 MG; Start 11/10/18 at 21:00 Erythromycin (Erythromycin) 250 mg TID PO Last administered on 11/15/18 09:03; Admin Dose 250 MG; Start 11/10/18 at 21:00 Hydralazine HCl (Apresoline) 100 mg TID PO Last administered on 11/15/18 09:05; Admin Dose 100 MG; Start 11/10/18 at 21:00 Hyoscyamine (Levsin (Sl)) 0.125 mg Q8 PRN PO NAUSEA Last administered on 11/11/18 10:01; Admin Dose 0.125 MG; Start 11/10/18 at 19:30 Labetalol HCl (Normodyne) 1,200 mg BID PO Last administered on 11/15/18 09:05; Admin Dose 1,200 MG; Start 11/10/18 at 21:00 Losartan Potassium (Cozaar) 100 mg DAILY PO Last administered on 11/15/18 09:04; Admin Dose 100 MG; Start 11/11/18 at 09:00 Eye Lubricant (Artificial Tears Oph) 2 drop Q6H PRN BOTH EYES DRY EYES; Start 11/10/18 at 19:30 Spironolactone (Aldactone) 25 mg BID PO Last administered on 11/15/18 09:05; Admin Dose 25 MG; Start 11/10/18 at 21:00 Sucralfate (Carafate) 1 gm QID PO Last administered on 11/14/18 21:12; Admin Dose 1 GM; Start 11/10/18 at 21:00 Pantoprazole (Protonix Tab) 40 mg BID@0600,1800 PO Last administered on 11/15/18 05:28; Admin Dose 40 MG; Start 11/11/18 at 06:00 Ampicillin Sodium/ Sulbactam Sodium 50 ml @ 100 mls/hr Q12 IVPB Last administered on 11/14/18 21:10; Admin Dose 100 MLS/HR; Start 11/11/18 at 09:00 Multivit/Ca Carb/ B Cmplx/FA/Prenat ([place]-Luis) 1 tab DAILY PO Last administered on 11/15/18 09:03; Admin Dose 1 TAB; Start 11/11/18 at 09:00 Sevelamer Carbonate (Renvela) 400 mg WITH MEALS PO Last administered on 11/15/18 09:03; Admin Dose 400 MG; Start 11/11/18 at 07:35 Heparin Sodium (Porcine) (Heparin (1000 Units/ml)) 3,700 unit AFTER DIALYSIS CATHETER Last administered on 11/14/18 15:53; Admin Dose 3,700 UNIT; Start 11/11/18 at 12:30 Diagnostic Test (Pha) (Accu-Chek) 1 ea AC MEALS XX Last administered on 11/14/18 17:27; Admin Dose 1 EA; Start 11/11/18 at 17:05 Insulin Aspart (Novolog Insulin Pen) NOVOLOG *MILD* ALGORITHM WITH MEALS BEDTIME SC Last administered on 11/15/18 08:29; Admin Dose 7 UNIT; Start 11/12/18 at 17:55 Diphenhydramine HCl (Benadryl) 25 mg Q6H PRN IV ITCHING Last administered on 11/14/18 21:38; Admin Dose 25 MG; Start 11/12/18 at 16:30 Insulin Glargine (Lantus) 5 units BID SC Last administered on 11/15/18 09:28; Admin Dose 5 UNITS; Start 11/13/18 at 21:00 Insulin Aspart (Novolog Insulin Pen) 1 unit WITH SNACKS SC ; Start 11/13/18 at 13:00 Insulin Aspart (Novolog Insulin Pen) To be given af... WITH MEALS SC Last administered on 11/15/18 07:54; Admin Dose 7 UNIT; Start 11/14/18 at 11:50 Lorazepam (Ativan) 2 mg Q4H PRN SL ANXIETY Last administered on 11/14/18 22:23; Admin Dose 2 MG; Start 11/14/18 at 18:00 Ondansetron HCl (Zofran Inj) 4 mg Q4H PRN IV NAUSEA AND/OR VOMITING Last administered on 11/15/18 09:16; Admin Dose 4 MG; Start 11/14/18 at 20:00 Hydromorphone HCl (Dilaudid) 4 mg Q4H PRN PO SEVERE PAIN LEVEL 7-10 Last administered on 11/15/18 05:29; Admin Dose 4 MG; Start 11/14/18 at 21:23 RAHEL FAJARDO MD November 15, 2018 13:06
[2018-11-15] MEDS: DIPHENHYDRAMINE 50 MG INJ IV PRN (13:12)
[2018-11-15] MEDS ORDERED: CLONIDINE 0.3 MG/24 HR PATCH TRANSDERM SCH (14:30)
[2018-11-15] MEDS ORDERED: DIPHENHYDRAMINE 50 MG INJ IV ONE ×2 (14:30→22:30)
--- NOTE | 2018-11-15 16:24 | PN ---
Date/Time of Note Date/Time of Note DATE: 11/15/18 TIME: 16:20 Assessment/Plan VTE Prophylaxis Risk score (from Nsg)>0 risk: 7 SCD applied (from Nsg): No SCD contraindicated: low risk/ambulating Pharmacological prophylaxis: heparin Lines/Catheters IV Catheter Type (from Nrsg): PERMA CATH Urinary Cath still in place: No Assessment/Plan Assessment/Plan 28 yo woman with type I diabetes, ESRD on dialysis, diabetic gastroparesis, blindness, tib/fib fracture. # DM type 1 #Hyperglycemia - was seen by Endocrinology during last admission and will continue on same r egime. - Currently on glargine 6u BID - Aspart TIDWM according to carb count. - Insulin sliding scale as well. - Patient and family want vials, not pens. #Diabetic gastroperesis - Small frequent meals throughout the day - PRN zofran, levsin for nausea. - Apparently she was evaluated for gastric pacemaker at [facility] but was considered a poor candidate due to comorbidities. #Hypertension - Continue home medications while patient is tolerating PO # ESRD on HD - Nephrology consulted for HD management # Recent right tibia/fibula fracture - conservative management - Seen twice by Dr. Babcock. - Continue leg brace for 6 weeks. Result Diagram: 11/15/18 0611/15/18 06 Subjective 24 Hr Interval Summary Free Text/Dictation No acute overnight events. Patient getting HD today and yesterday. It was documented that patient refused lantus last night but she says this is not the case. Very hyperglycemic this morning, have been giving high doses of me altime and sliding scale insulin but the patient is very brittle and we don't want her to drop hypoglycemic. On the plus side, she has great appetite with no nausea. Finally, the patient reports urinary urgency and dysuria x2 days. Will give empiric ceftriaxone 1g IV x1. Exam/Review of Systems Exam Vitals Vital Signs Date Temp Pulse Resp B/P (MAP) Pulse Ox O2 O2 Flow FiO2 Time Delivery Rate 11/15/18 89 16:14 11/15/18 97.9 19 110/69 96 15:28 (83) 11/15/18 Nasal 2.0 14:23 Cannula Intake and Output 11/14/18 11/14/18 11/15/18 1515:00 23:00 07:00 IntakeIntake Total 700 ml OutputOutput Total 200 ml 2400 ml BalanceBalance -200 ml -1700 ml Exam General: Patient is laying in bed and answers questions appropriately Mentation: Patient is alert and oriented 4, Head: Normocephalic atraumatic Neck: Supple, nontender, midline Respiratory: Clear to auscultation bilaterally. no wheezing or rhonchi Cardiovascular: regular rate and rhythm, no obvious murmurs Gastrointestinal: soft, nontender to palpation, nondistended, no rebound or guarding, normoactive bowel sounds. Ext: R leg brace in place. Skin: No new skin lesions Results Results 24hrs Laboratory Tests Test 11/14/18 17:26 11/14/18 21:07 11/15/18 06:01 11/15/18 07:26 Bedside Glucose 97 169 459 *H White Blood Count 7.1 Red Blood Count 2.82 L Hemoglobin 8.5 L Hematocrit 27.7 L Mean Corpuscular 98.2 Volume Mean Corpuscular 30.1 Hemoglobin Mean Corpuscular 30.7 L Hemoglobin Concent Red Cell 17.7 H Distribution Width Platelet Count 188 Mean Platelet Volume 10.5 H Immature 0.400 Granulocytes % Neutrophils % 77.6 H Lymphocytes % 6.9 L Monocytes % 7.8 Eosinophils % 6.2 Basophils % 1.1 Nucleated Red Blood 0.0 Cells % Immature 0.030 Granulocytes # Neutrophils # 5.5 Lymphocytes # 0.5 L Monocytes # 0.6 Eosinophils # 0.4 Basophils # 0.1 Nucleated Red Blood 0.0 Cells # Sodium Level 136 Potassium Level 4.7 Chloride Level 98 Carbon Dioxide Level 20 L Anion Gap 18 H Blood Urea Nitrogen 20 Creatinine 3.84 H Est Glomerular 14 L Filtrat Rate mL/min Glucose Level 456 #*H Calcium Level 9.4 Test 11/15/18 08:59 11/15/18 12:23 Bedside Glucose 407 *H 380 H Medications Medication Current Medications IV Flush (NS 3 ml) 3 ml PER PROTOCOL IV ; Start 11/10/18 at 19:30 Acetaminophen (Tylenol Tab) 650 mg Q6H PRN PO .PAIN 1-3 OR TEMP; Start 11/10/18 at 19:30 Acetaminophen/ Hydrocodone Bitart ([place] (5/325)) 1 tab Q6H PRN PO .MOD PAIN 4- 6; Start 11/10/18 at 19:30 Docusate Sodium (Colace) 100 mg Q12H PRN PO .CONSTIPATION; Start 11/10/18 at 19:30 Magnesium Hydroxide (Milk Of Mag) 30 ml DAILY PRN PO .CONSTIPATION; Start 11/10/18 at 19:30 Albuterol/ Ipratropium (Duoneb) 3 ml Q4H RESP THERAPY PRN HHN SHORTNESS OF BREATH; Start 11/10/18 at 19:30 Hydralazine HCl (Apresoline) 10 mg Q4H PRN IV ELEVATED BLOOD PRESSURE Last administered on 11/13/18 06:33; Admin Dose 10 MG; Start 11/10/18 at 19:30 Nitroglycerin (Nitroglycerin (Sl Tab) 0.4 Mg) 1 tab Q5M PRN SL ANGINA; Start 11/10/18 at 19:30 Baclofen (Lioresal) 5 mg TID PO Last administered on 11/15/18 12:37; Admin Dose 5 MG; Start 11/10/18 at 21:00 Calcium Carbonate (Tums Ex) 300 mg Q2H PRN PO GASTROINTESTINAL UPSET; Start 11/10/18 at 19:30; Status Hold Clonidine (Catapres) 0.4 mg BID PO Last administered on 11/15/18 09:04; Admin Dose 0.4 MG; Start 11/10/18 at 21:00 Erythromycin (Erythromycin) 250 mg TID PO Last administered on 11/15/18 12:36; Admin Dose 250 MG; Start 11/10/18 at 21:00 Hydralazine HCl (Apresoline) 100 mg TID PO Last administered on 11/15/18 09:05; Admin Dose 100 MG; Start 11/10/18 at 21:00 Hyoscyamine (Levsin (Sl)) 0.125 mg Q8 PRN PO NAUSEA Last administered on 11/11/18 10:01; Admin Dose 0.125 MG; Start 11/10/18 at 19:30 Labetalol HCl (Normodyne) 1,200 mg BID PO Last administered on 11/15/18 09:05; Admin Dose 1,200 MG; Start 11/10/18 at 21:00 Losartan Potassium (Cozaar) 100 mg DAILY PO Last administered on 11/15/18 09:04; Admin Dose 100 MG; Start 11/11/18 at 09:00 Eye Lubricant (Artificial Tears Oph) 2 drop Q6H PRN BOTH EYES DRY EYES; Start 11/10/18 at 19:30 Spironolactone (Aldactone) 25 mg BID PO Last administered on 11/15/18 09:05; Admin Dose 25 MG; Start 11/10/18 at 21:00 Sucralfate (Carafate) 1 gm QID PO Last administered on 11/15/18 13:13; Admin Dose 1 GM; Start 11/10/18 at 21:00 Pantoprazole (Protonix Tab) 40 mg BID@0600,1800 PO Last administered on 11/15/18 05:28; Admin Dose 40 MG; Start 11/11/18 at 06:00 Ampicillin Sodium/ Sulbactam Sodium 50 ml @ 100 mls/hr Q12 IVPB Last administered on 11/15/18 12:23; Admin Dose 100 MLS/HR; Start 11/11/18 at 09:00 Multivit/Ca Carb/ B Cmplx/FA/Prenat ([place]-Luis) 1 tab DAILY PO Last administered on 11/15/18 09:03; Admin Dose 1 TAB; Start 11/11/18 at 09:00 Sevelamer Carbonate (Renvela) 400 mg WITH MEALS PO Last administered on 11/15/18 12:29; Admin Dose 400 MG; Start 11/11/18 at 07:35 Heparin Sodium (Porcine) (Heparin (1000 Units/ml)) 3,700 unit AFTER DIALYSIS CATHETER Last administered on 11/14/18 15:53; Admin Dose 3,700 UNIT; Start 11/11/18 at 12:30 Diagnostic Test (Pha) (Accu-Chek) 1 ea AC MEALS XX Last administered on 11/14/18 17:27; Admin Dose 1 EA; Start 11/11/18 at 17:05 Insulin Aspart (Novolog Insulin Pen) NOVOLOG *MILD* ALGORITHM WITH MEALS BEDTIME SC Last administered on 11/15/18 12:30; Admin Dose 7 UNIT; Start 11/12/18 at 17:55 Diphenhydramine HCl (Benadryl) 25 mg Q6H PRN IV ITCHING Last administered on 11/15/18 13:12; Admin Dose 25 MG; Start 11/12/18 at 16:30 Insulin Glargine (Lantus) 5 units BID SC Last administered on 11/15/18 09:28; Admin Dose 5 UNITS; Start 11/13/18 at 21:00 Insulin Aspart (Novolog Insulin Pen) To be given af... WITH MEALS SC Last administered on 11/15/18 15:25; Admin Dose 11 UNIT; Start 11/14/18 at 11:50 Lorazepam (Ativan) 2 mg Q4H PRN SL ANXIETY Last administered on 11/14/18 22:23 ; Admin Dose 2 MG; Start 11/14/18 at 18:00 Ondansetron HCl (Zofran Inj) 4 mg Q4H PRN IV NAUSEA AND/OR VOMITING Last administered on 11/15/18 09:16; Admin Dose 4 MG; Start 11/14/18 at 20:00 Hydromorphone HCl (Dilaudid) 4 mg Q4H PRN PO SEVERE PAIN LEVEL 7-10 Last administered on 11/15/18at 05:29; Admin Dose 4 MG; Start 11/14/18 at 21:23 Insulin Aspart (Novolog Insulin Pen) CARB COUNT -INSULIN COVER... WITH SNACKS SC ; Start 11/13/18 at 13:00 Clonidine HCl (Catapres-Tts 3 Patch) 2 patch Q7D TRANSDERM Last administered on 11/15/18at 15:13; Admin Dose 2 PATCH; Start 11/15/18 at 14:30 VINICIUS YAÑEZ MD November 15, 2018 16:24
[2018-11-15] MEDS ORDERED: CEFTRIAXONE 1 GM/50 ML (PMX) 50 ML IVPB ONE (16:30)
[2018-11-15] MEDS: HEPARIN 1000 UNITS/ML 10 ML INJ CATHETER SCH (17:06)
[2018-11-16] VITALS (8 sets, daily range): BP systolic 125–142; BP diastolic 74–84; PULSE 70–86; RESP 16–20
[2018-11-16] MEDS: LORAZEPAM 1 MG TAB SL PRN ×3 (00:21→12:28)
[2018-11-16] MEDS ORDERED: LOPERAMIDE 2 MG CAP PO ONE (01:00)
[2018-11-16] MEDS: hydrALAzine 20 MG INJ IV PRN (01:34)
[2018-11-16] MEDS: HYDROmorphONE 2 MG TAB PO PRN ×3 (02:58→11:18)
[2018-11-16] MEDS: PANTOPRAZOLE (EC) 40 MG TAB PO SCH (05:36)
[2018-11-16] MEDS: ONDANSETRON 4 MG INJ IV PRN ×2 (07:31→12:28)
[2018-11-16] MEDS: ACCU-CHEK XX SCH ×2 (08:12→12:16)
[2018-11-16] MEDS: INSULIN ASPART [NOVOLOG] 3 ML PEN SC SCH ×3 (08:18→12:33)
[2018-11-16] MEDS: INSULIN GLARGINE [LANTus] (100 UNITS/ML) SYG SC SCH (08:18)
[2018-11-16] MEDS: AMPICILLIN/SULB 1.5GM/NS (PMX) 50 ML IVPB SCH (08:21)
[2018-11-16] MEDS: ERYTHROMYCIN BASE (DR) 250 MG CAP PO SCH ×2 (08:30→14:40)
[2018-11-16] MEDS: MULTIVIT/CA CARB/B CMPLX/FA TAB PO SCH (08:30)
[2018-11-16] MEDS: SPIRONOLACTONE 50 MG TAB PO SCH (08:31)
[2018-11-16] MEDS: LABETALOL 200 MG TAB PO SCH (08:31)
[2018-11-16] MEDS: LOSARTAN 50 MG TAB PO SCH (08:32)
[2018-11-16] MEDS: SEVELAMER CARBONATE 800 MG TABLET PO SCH ×2 (08:33→12:31)
[2018-11-16] MEDS: SUCRALFATE 1 GM TAB PO SCH ×2 (08:33→14:40)
[2018-11-16] MEDS: BACLOFEN 10 MG TAB PO SCH ×2 (08:33→14:40)
--- NOTE | 2018-11-16 09:36 | PN ---
DATE: 11/16/2018 SUBJECTIVE: The patient had hemodialysis yesterday, tolerated well. OBJECTIVE: VITAL SIGNS: Blood pressure is 137/78, respiratory rate 20, pulse 71, temperature 98.6. HEENT: Head is normocephalic. NECK: Supple. HEART: Regular rate. LUNGS: Show diminished breath sounds at the base. ABDOMEN: Soft, nontender to palpation without rebound or guarding. EXTREMITIES: Negative for clubbing, cyanosis, no edema. DERMATOLOGIC: No rashes. MUSCULOSKELETAL: No joint effusion. NEUROLOGIC: No change in exam. MEDICATIONS: Reviewed. LABORATORY DATA: Has been reviewed. ASSESSMENT AND PLAN: 1. End-stage renal disease. The patient is on dialysis Sunday, Sunday, Sunday. Had hemodialysis yesterday, tolerated well. Anticipate next dialysis on Sunday. 2. Anemia. Continue to monitor hemoglobin and hematocrit levels. Continue Epogen. 3. Mineral bone disorder, monitor calcium and phosphorus levels. Continue phosphate binders. 4. Hypertension. Blood pressure is improved. Continue current blood pressure regimen. Continue ul trafiltration with hemodialysis. 5. Diabetes. Continue current insulin regimen, adjust as needed. 6. Vertebral fracture. The patient was evaluated by orthopedist. Continue conservative care. 7. Chronic pain disorder, anxiety disorder. Continue current medical management. Dictated By: JUJU JOHN/ALISON Conf#: [id number] DID#: [id number] CC: NAYAN WILLIS;*EndCC*
--- NOTE | 2018-11-16 09:54 | CONS ---
Assessment/Plan Assessment/Plan Problems: (1) Diabetes mellitus type 1 with complications Onset Date: ~ 10/1996 Status: Chronic Comment: Her sugar decreased and then has increased after she had liberal access to oral intake of food stuffs. Continue treatment and allow her to equilibrate. (2) Vitamin D deficiency Status: Chronic Comment: Continue replacement therapy (3) Secondary hyperparathyroidism of renal origin Status: Chronic Comment: Noted. As per nephrology Consultation Date/Type/Reason Admit Date/Time November 10, 2018 at 17:12 Initial Consult Date 11/11/18 Type of Consult Endocrinology Reason for Consultation Diabetes mellitus type 1 complicated by end-stage renal disease; retinopathy with blindness; peripheral neuropathy; medical noncompliance Requesting Provider: HONG LEOS Date/Time of Note DATE: 11/16/18 TIME: 09:52 24 HR Interval Summary Free Text/Dictation Patient actively on the telephone requests I let her be today Constitutional: no complaints Detailed Summary Cardiovascular: no complaints Gastrointestinal: no complaints Exam/Review of Systems Exam Vitals Vital Signs Date Temp Pulse Resp B/P (MAP) Pulse Ox O2 O2 Flow FiO2 Time Delivery Rate 11/16/18 97.6 86 20 142/76 100 08:28 (98) 11/15/18 Nasal 2.0 16:53 Cannula Intake and Output 11/15/18 11/15/18 11/16/18 1515:00 23:00 07:00 IntakeIntake Total 480 ml 550 ml 800 ml OutputOutput Total 2400 ml BalanceBalance 480 ml -1850 ml 800 ml Exam No change in exam Results Result Diagram: 11/16/18 0638 11/16/18 0638 Results 24hrs Laboratory Tests Test 11/15/18 12:23 11/15/18 17:37 11/15/18 22:20 11/16/18 01:23 Bedside Glucose 380 H 148 135 42 *L Test 11/16/18 01:44 11/16/18 02:01 11/16/18 02:23 11/16/18 06:38 Bedside Glucose 60 L 107 132 White Blood Count 7.5 Red Blood Count 2.73 L Hemoglobin 8.3 L Hematocrit 25.9 L Mean Corpuscular 94.9 Volume Mean Corpuscular 30.4 Hemoglobin Mean Corpuscular 32.0 Hemoglobin Concent Red Cell 17.6 H Distribution Width Platelet Count 204 Mean Platelet Volume 10.1 Immature 0.500 H Granulocytes % Neutrophils % 74.4 Lymphocytes % 6.6 L Monocytes % 9.1 Eosinophils % 8.6 H Basophils % 0.8 Nucleated Red Blood 0.0 Cells % Immature 0.040 H Granulocytes # Neutrophils # 5.6 Lymphocytes # 0.5 L Monocytes # 0.7 Eosinophils # 0.6 H Basophils # 0.1 Nucleated Red Blood 0.0 Cells # Sodium Level 135 Potassium Level 4.7 Chloride Level 100 Carbon Dioxide Level 27 Anion Gap 8 # Blood Urea Nitrogen 19 Creatinine 3.11 H Est Glomerular 18 L Filtrat Rate mL/min Glucose Level 318 H Calcium Level 8.9 Test 11/16/18 08:09 Bedside Glucose 417 *H Medications Medication Current Medications IV Flush (NS 3 ml) 3 ml PER PROTOCOL IV ; Start 11/10/18 at 19:30 Acetaminophen (Tylenol Tab) 650 mg Q6H PRN PO .PAIN 1-3 OR TEMP; Start 11/10/18 at 19:30 Acetaminophen/ Hydrocodone Bitart ([place] (5/325)) 1 tab Q6H PRN PO .MOD PAIN 4- 6; Start 11/10/18 at 19:30 Docusate Sodium (Colace) 100 mg Q12H PRN PO .CONSTIPATION; Start 11/10/18 at 19:30 Magnesium Hydroxide (Milk Of Mag) 30 ml DAILY PRN PO .CONSTIPATION; Start 11/10/18 at 19:30 Albuterol/ Ipratropium (Duoneb) 3 ml Q4H RESP THERAPY PRN HHN SHORTNESS OF BREATH; Start 11/10/18 at 19:30 Hydralazine HCl (Apresoline) 10 mg Q4H PRN IV ELEVATED BLOOD PRESSURE Last administered on 11/16/18at 01:34; Admin Dose 10 MG; Start 11/10/18 at 19:30 Nitroglycerin (Nitroglycerin (Sl Tab) 0.4 Mg) 1 tab Q5M PRN SL ANGINA; Start 11/10/18 at 19:30 Baclofen (Lioresal) 5 mg TID PO Last administered on 11/16/18at 08:33; Admin Dose 5 MG; Start 11/10/18 at 21:00 Calcium Carbonate (Tums Ex) 300 mg Q2H PRN PO GASTROINTESTINAL UPSET; Start 11/10/18 at 19:30; Status Hold Clonidine (Catapres) 0.4 mg BID PO Last administered on 11/16/18 08:34; Admin Dose 0.4 MG; Start 11/10/18 at 21:00 Erythromycin (Erythromycin) 250 mg TID PO Last administered on 11/16/18 08:30; Admin Dose 250 MG; Start 11/10/18 at 21:00 Hydralazine HCl (Apresoline) 100 mg TID PO Last administered on 11/16/18 08:36; Admin Dose 100 MG; Start 11/10/18 at 21:00 Hyoscyamine (Levsin (Sl)) 0.125 mg Q8 PRN PO NAUSEA Last administered on 11/11/18 10:01; Admin Dose 0.125 MG; Start 11/10/18 at 19:30 Labetalol HCl (Normodyne) 1,200 mg BID PO Last administered on 11/16/18 08:31; Admin Dose 1,200 MG; Start 11/10/18 at 21:00 Losartan Potassium (Cozaar) 100 mg DAILY PO Last administered on 11/16/18 08:32; Admin Dose 100 MG; Start 11/11/18 at 09:00 Eye Lubricant (Artificial Tears Oph) 2 drop Q6H PRN BOTH EYES DRY EYES; Start 11/10/18 at 19:30 Spironolactone (Aldactone) 25 mg BID PO Last administered on 11/16/18 08:31; Admin Dose 25 MG; Start 11/10/18 at 21:00 Sucralfate (Carafate) 1 gm QID PO Last administered on 11/16/18 08:33; Admin Dose 1 GM; Start 11/10/18 at 21:00 Pantoprazole (Protonix Tab) 40 mg BID@0600,1800 PO Last administered on 11/16/18 05:36; Admin Dose 40 MG; Start 11/11/18 at 06:00 Ampicillin Sodium/ Sulbactam Sodium 50 ml @ 100 mls/hr Q12 IVPB Last administered on 11/16/18 08:21; Admin Dose 100 MLS/HR; Start 11/11/18 at 09:00 Multivit/Ca Carb/ B Cmplx/FA/Prenat ([place]-Luis) 1 tab DAILY PO Last administered on 11/16/18 08:30; Admin Dose 1 TAB; Start 11/11/18 at 09:00 Sevelamer Carbonate (Renvela) 400 mg WITH MEALS PO Last administered on 11/16/18 08:33; Admin Dose 400 MG; Start 11/11/18 at 07:35 Heparin Sodium (Porcine) (Heparin (1000 Units/ml)) 3,700 unit AFTER DIALYSIS CATHETER Last administered on 11/15/18 17:06; Admin Dose 3,700 UNIT; Start 11/11/18 at 12:30 Diagnostic Test (Pha) (Accu-Chek) 1 ea AC MEALS XX Last administered on 11/16/18 08:12; Admin Dose 1 EA; Start 11/11/18 at 17:05 Insulin Aspart (Novolog Insulin Pen) NOVOLOG *MILD* ALGORITHM WITH MEALS BEDTIME SC Last administered on 11/16/18 08:18; Admin Dose 5 UNIT; Start 11/12/18 at 17:55 Diphenhydramine HCl (Benadryl) 25 mg Q6H PRN IV ITCHING Last administered on 11/15/18 13:12; Admin Dose 25 MG; Start 11/12/18 at 16:30 Insulin Glargine (Lantus) 5 units BID SC Last administered on 11/16/18 08:18; Admin Dose 5 UNITS; Start 11/13/18 at 21:00 Insulin Aspart (Novolog Insulin Pen) To be given af... WITH MEALS SC Last administered on 11/15/18 22:06; Admin Dose 9 UNIT; Start 11/14/18 at 11:50 Lorazepam (Ativan) 2 mg Q4H PRN SL ANXIETY Last administered on 11/16/18 05:39; Admin Dose 2 MG; Start 11/14/18 at 18:00 Ondansetron HCl (Zofran Inj) 4 mg Q4H PRN IV NAUSEA AND/OR VOMITING Last administered on 11/16/18 07:31; Admin Dose 4 MG; Start 11/14/18 at 20:00 Hydromorphone HCl (Dilaudid) 4 mg Q4H PRN PO SEVERE PAIN LEVEL 7-10 Last administered on 11/16/18 06:43; Admin Dose 4 MG; Start 11/14/18 at 21:23 Insulin Aspart (Novolog Insulin Pen) CARB COUNT -INSULIN COVER... WITH SNACKS SC ; Start 11/13/18 at 13:00 Clonidine HCl (Catapres-Tts 3 Patch) 2 patch Q7D TRANSDERM Last administered on 11/15/18at 15:13; Admin Dose 2 PATCH; Start 11/15/18 at 14:30 Epoetin Vic-epbx (Retacrit (Esrd)) 10,000 unit TuThSa@1700 SC ; Start 11/16/18 at 17:00 ADRI BASURTO MD November 16, 2018 09:54
--- NOTE | 2018-11-16 14:45 | PDOCDIS ---
Discharge Instructions CONDITION [id number] Patient Condition: [id number] Good HOME CARE INSTRUCTIONS: [id number] Special Diet: [id number] Diabetic ACTIVITY: [id number] Activity Restrictions: [id number] Slowly Increase Activity FOLLOW UP/APPOINTMENTS Follow-up Plan Follow-up with your PCP in 1 to 2 weeks, follow up with a sales development specialist CLEMENCIA TO November 16, 2018 14:45
[2018-11-16] MEDS ORDERED: ERYT250C52 PO (14:46)
[2018-11-16] MEDS ORDERED: LANT3I SC (14:46)
[2018-11-16] MEDS ORDERED: INSU100C SQ (14:46)
[2018-11-16] MEDS ORDERED: HYDR-3672 PO (15:06)
[2018-11-16] MEDS ORDERED: PANT40TA4 PO (15:06)
[2018-11-16] MEDS ORDERED: LORA0.5T PO (15:06)
[2018-11-16] MEDS ORDERED: LOSA50TA2 PO (15:06)
[2018-11-16] MEDS ORDERED: CALC300T4 PO (15:06)
[2018-11-16] MEDS ORDERED: POLY15DR11 BOTH EYES (15:06)
[2018-11-16] MEDS ORDERED: HYOS0.1297 PO (15:06)
[2018-11-16] MEDS ORDERED: ONDA8TAB14 PO (15:06)
[2018-11-16] MEDS ORDERED: SPIR100T4 PO (15:06)
[2018-11-16] MEDS ORDERED: CLON0.3T PO (15:06)
[2018-11-16] MEDS ORDERED: LABE200T7 PO (15:06)
[2018-11-16] MEDS ORDERED: CLON1PAT3 TD (15:06)
[2018-11-16] MEDS ORDERED: SUCR1TAB35 PO (15:06)
--- NOTE | 2018-11-16 15:13 | DS ---
Date/Time of Note Date/Time of Note DATE: 11/16/18 TIME: 15:09 Discharge Summary Admission/Discharge Info Admit Date/Time November 10, 2018 at 17:12 Discharge Date/Time November 16, 2018 Discharge Diagnosis 28 yo woman with type I diabetes, ESRD on dialysis, diabetic gastroparesis, blindness, tib/fib fracture. # DM type 1 #Hyperglycemia - was seen by Endocrinology during last admission and will continue on same regimen - Currently on glargine 6u BID - Aspart TIDWM according to carb count. - Insulin sliding scale as well. - Patient and family want vials, not pens. #Diabetic gastroperesis - Small frequent meals throughout the day - PRN zofran, levsin for nausea. - Apparently she was evaluated for gastric pacemaker at [facility] but was considered a poor candidate due to comorbidities. #Hypertension - Continue home medications while patient is tolerating PO, home meds were refilled # ESRD on HD -Continue outpatient HD # Recent right tibia/fibula fracture - conservative management - Seen twice by Dr. Babcock. - Continue leg brace for 6 weeks. Patient Condition: Good Hospital Course Patient is a 28 yo woman with type I diabetes, ESRD on dialysis, diabetic gastroparesis, blindness, tib/fib fracture. Patient presents with hyperglycemia and diabetic gastroparesis. Patient's compliance with regimen is unclear and patient's diabetes is brittle. Patient was placed back on previous home regimen with stable sugars. Patient was given Zofran and Levsin for nausea, patient was able to tolerate oral meds. Patient was stable for DC, patient's insulin and blood pressure meds were renewed, on the day of discharge patient's vitals, labs and physical exam are stable. Home Meds Active Scripts Ondansetron (Ondansetron Odt) 8 Mg Tab.rapdis, 8 MG PO Q6H PRN for NAUSEA AND/OR VOMITING, #30 TAB 1 Refill Prov:CLEMENCIA TO 11/16/18 Polyvinyl Alcohol* ([place] Tears*) 1.4% - 15 Ml Drops, 2 DROP BOTH EYES Q6H PRN for DRY EYES, #1 BOTTLE 2 Refills Prov:CLEMENCIA TO 11/16/18 Pantoprazole* (Pantoprazole*) 40 Mg Tablet.dr, 40 MG PO BID, #60 TAB 1 Refill Prov:CLEMENCIA TO 11/16/18 Sucralfate (Carafate) 1 Gm Tablet, 1 GM PO QID, #60 TAB 1 Refill Prov:CLEMENCIA TO 11/16/18 Losartan Potassium* (Cozaar*) 50 Mg Tablet, 100 MG PO DAILY, #60 TAB 1 Refill Prov:CLEMENCIA TO 11/16/18 Hyoscyamine Sulfate* (Hyoscyamine Sulfate*) 0.125 Mg Tab.subl, 0.125 MG PO Q8 PRN for NAUSEA, #60 TAB 1 Refill Prov:CLEEMNCIA TO 11/16/18 Hydralazine Hcl* (Hydralazine Hcl*) 50 Mg Tab, 100 MG PO TID, #180 TAB 1 Refill Prov:CLEMENCIA TO 11/16/18 Lorazepam* (Lorazepam*) 0.5 Mg Tablet, 0.5 MG PO Q6 PRN for AGITATION/ANXIETY, #30 TAB 1 Refill Prov:CLEMENCIA TO 11/16/18 Calcium Carbonate* (Tums X-Str) 300 Mg Tab.chew, 300 MG PO Q2H PRN for GASTROINTESTINAL UPSET, #60 TAB.CHEW Prov:CLEMENCIA TO 11/16/18 Clonidine Hcl* (Clonidine Hcl*) 0.3 Mg Tablet, 0.4 MG PO BID, #60 TAB Prov:CLEMENCIA TO 11/16/18 Spironolactone* (Spironolactone*) 100 Mg Tablet, 25 MG PO BID, #60 TAB Prov:CLEMENCIA TO 11/16/18 Labetalol Hcl (Normodyne) 200 Mg Tablet, 1200 MG PO BID, #60 TAB Prov:CLEMENCIA TO 11/16/18 Clonidine Patch (CLONIDINE PATCH) 0.3 Mg/24 Hr Patch, 2 PATCH.WK TD Q7D, #4 PATCH.WK 1 Refill Prov:CLEMENCIA TO 11/16/18 Insulin Glargine* (Lantus*) 100 Unit/Ml Soln, 6 UNIT SC BID, #1 VIAL 1 Refill Prov:CLEMENCIA TO 11/16/18 Erythromycin* (Erythromycin* EC) 250 Mg Capsule.dr, 250 MG PO TID, #90 TAB Prov:CLEMENCIA TO 11/16/18 Insulin Lispro (Humalog) 100 Unit/1 Ml Cartridge, 0 SQ SLIDING SCALE 5-15 U, #1 EA 1 Refill Prov:CLEMENCIA TO 11/16/18 Hydrocodone/Acetaminophen ([place] 10-325 Tablet) 1 Each Tablet, 1 EACH PO Q6 for 14 Days, TAB Prov:NAYAN WILLIS S. 11/08/18 Insulin Aspart* (Novolog Insulin Pen*) 100 Unit/Ml Soln, 2 UNIT SC WITH MEALS, #1 BOTTLE 3 Refills Prov:NAYAN WILLIS S. 11/08/18 Baclofen* (Baclofen*) 10 Mg Tablet, 5 MG PO TID, #60 TAB 1 Refill Prov:NAYAN WILLIS S. 11/08/18 Reported Medications Loperamide Hcl* (Imodium*) 2 Mg Capsule, 2 MG PO TID PRN for DIARRHEA, CAP MAX 16 mg/day 10/21/18 Discontinued Scripts [Insulin Glargine] 100 UNITS/ML SOLN No Conflict Check, 6 UNITS SC Q12, #1 BOTTLE 3 Refills Prov:NAYAN WILLIS S. 11/08/18 Follow-up Plan Follow-up with your PCP in 1 to 2 weeks, follow up with a corporate specialist Primary Care Provider Not On Staff Doctor Time spent on discharge: > 30 minutes CLEMENCIA TO November 16, 2018 15:13
[2018-11-16] MEDS ORDERED: EPOETIN ALFA-EPBX (ESRD) 10,000 UNIT/ML VIAL SC SCH (17:00)
== END 2018-11-16 17:40 | disposition home or self-care (01) | DRG 637 ==
LOC: E/R 14:00 → ICU 17:12 → TEL 11-11 19:22
PROVIDERS: ADMIT Hospitalist; ATTEND Internal Medicine
PROC: 5A1D70Z Performance of Urinary Filtration, Intermittent, Less than 6 Hours Per Day (ICD-10-PCS; principal; 2018-11-11)
DX: E10.10 Type 1 diabetes mellitus with ketoacidosis without coma (principal); N18.6 End stage renal disease; I12.0 Hypertensive chronic kidney disease with stage 5 chronic kidney disease or end stage renal disease; I16.0 Hypertensive urgency; Z99.2 Dependence on renal dialysis; D63.1 Anemia in chronic kidney disease; S82.201D Unspecified fracture of shaft of right tibia, subsequent encounter for closed fracture with routine healing; H05.223 Edema of bilateral orbit; E10.319 Type 1 diabetes mellitus with unspecified diabetic retinopathy without macular edema; E10.43 Type 1 diabetes mellitus with diabetic autonomic (poly)neuropathy; E10.22 Type 1 diabetes mellitus with diabetic chronic kidney disease; K31.84 Gastroparesis; E10.42 Type 1 diabetes mellitus with diabetic polyneuropathy; G89.29 Other chronic pain; F41.9 Anxiety disorder, unspecified; E87.70 Fluid overload, unspecified; E55.9 Vitamin D deficiency, unspecified; H54.3 Unqualified visual loss, both eyes; Z91.14 Patient's other noncompliance with medication regimen
CPT/HCPCS: 36415; 71045; 80048; 80061; 80307; 81001; 82803; 82962; 83036; 83605; 83735; 84100; 84439; 84443; 84484; 85025; 87075; 90935; 93005; 96374; 96375; J0295; J0360; J0696; J1170; J1200; J1644; J1815; J2060; J2405; J2765; J3480; J7030; J7120; Q5105